=== PATIENT | male | born 1955 | race Caucasian/White ===

== ENCOUNTER 2022-01-11 18:28 | Emergency (ER) | payer MEDICARE, BC, SELFPAY ==
[2022-01-11] VITALS (7 sets, daily range): BP systolic 148–163; BP diastolic 86–102; PULSE 65–76; RESP 10–20; TEMP 37; O2SAT 92–96; BMI 30.3
--- NOTE | 2022-01-11 20:56 | ED.CHESTPAIN ---
HPI - Chest Pain General Chief Complaint: Chest Pain Stated Complaint: CHEST PRESSURE,STENT TODAY Time Seen by Provider: 01/11/22 18:43 History of Present Illness HPI narrative: 66-year-old man presenting with spouse to the emergency department with concern of pain across his upper chest. His like a bruise or like he has been punched in the chest. He was stented 1 stent after planned angiogram this morning at [facility]. Sees [facility]. Known coronary artery disease with a history of 2 other stents. Two weeks ago was seen in this emergency department and recommended for follow-up now which he did with Cardiology and according to these symptoms plan for angiogram. He is not having any radiating pain other than as mentioned above. This pain is familiar his concern though is that it lasted longer than his other stentings. He actually would describe it not so much as a pain. He is not having nausea no shortness of breath. Related Data Home Medications Medication Instructions Recorded Confirmed aspirin 81 mg tablet,delayed mg 01/11/22 release bupropion HCl 150 mg 24 hr tablet, mg PO 01/11/22 extended release bupropion HCl 300 mg 24 hr tablet, mg PO 01/11/22 extended release clopidogrel 75 mg tablet mg 01/11/22 escitalopram oxalate 20 mg tablet mg 01/11/22 lorazepam 0.5 mg tablet mg 01/11/22 nitroglycerin 0.4 mg sublingual mg 01/11/22 tablet tadalafil 20 mg tablet mg 01/11/22 tadalafil 5 mg tablet mg 01/11/22 Allergies Allergy/AdvReac Type Severity Reaction Status Date / Time augmentin AdvReac Intermediate Nausea Uncoded 01/11/22 18:40 Review of Systems Status of ROS Reports: 6 or more systems reviewed and unremarkable except as noted in History and below [facility] Social History Smoking Status: Never smoker Do you use any of these nicotine containing products: None Second hand tobacco smoke exposure: No How often do you have a drink containing alcohol: monthly or less How often do you have six or more drinks on one occasion: Never AUDIT-C Alcohol total score: 1 Non-prescribed substance use: denies use Exam Narrative Exam Narrative: pleasant. nad. tall stature. skin is warm and dry. abdomen soft and non-tender moving all extremities without difficulty. no edema. well-perfused. bandage in place at right forearm -- no inflammation or area swelling. breathing easily. lungs are clear. no reproducible pain in chest. no swelling around the neck EKG reviewed by me shows normal sinus rhythm at a rate of 65. No ischemic changes evident. Const Vital Signs, click to edit/add: Vital Signs - 24 hr 01/11/22 18:33 01/11/22 18:35 01/11/22 18:45 Temperature 98.6 F Pulse Rate [Right Pulse Oximeter] 67 65 66 Respiratory Rate 14 14 14 Blood Pressure [Right Upper Arm] 160/97 H 160/97 H 155/86 H Pulse Oximetry 92 96 94 01/11/22 19:00 01/11/22 19:15 01/11/22 19:30 Temperature Pulse Rate [Right Pulse Oximeter] 74 76 68 Respiratory Rate 20 20 10 L Blood Pressure [Right Upper Arm] 160/102 H 155/93 H 163/88 H Pulse Oximetry 95 94 95 01/11/22 19:45 Temperature Pulse Rate [Right Pulse Oximeter] 67 Respiratory Rate 14 Blood Pressure [Right Upper Arm] 148/92 H Pulse Oximetry 94 Documenting provider has reviewed patient's vital signs: yes Course Course Hospital Course: unchanged symptoms Consultations Consultation #1: Call to [facility] and spoke to on-call cardiology. was stented in the 2nd marginal obtuse No red flags. Not necessarily unusual. Does not sound to be indicative of thrombosis a stent would likely much more significant symptoms. Vital Signs Vital signs: Initial Vital Signs Pulse Rate 67 01/11/22 18:33 Respiratory Rate 14 01/11/22 18:33 Blood Pressure 160/97 H 01/11/22 18:33 Blood Pressure Mean 118 01/11/22 18:33 Blood Pressure Position Supine 01/11/22 18:33 Pulse Oximetry 92 01/11/22 18:33 Vital Signs Pulse Rate 67 01/11/22 18:33 Respiratory Rate 14 01/11/22 18:33 Blood Pressure 160/97 H 01/11/22 18:33 Pulse Oximetry 92 01/11/22 18:33 Temperature 98.6 F 01/11/22 18:35 Pulse Rate 67 01/11/22 19:45 Respiratory Rate 14 01/11/22 19:45 Blood Pressure 148/92 H 01/11/22 19:45 Pulse Oximetry 94 01/11/22 19:45 MDM - Chest Pain MDM Narrative Medical decision making narrative: see above Medical Records Data Attestation: I reviewed the patient's medical records. Discharge Plan Discharge Clinical Impression: Post-operative pain Patient Disposition: Home w/ Parent or Adult Condition: Stable Additional Instructions: Hydrate. Rest. Take medications as prescribed. Return for marked increase in pain, lightheadedness, shortness of breath, nausea. Prescriptions: No Action clopidogrel 75 mg tablet 0RF Label Comments: TAKE 1 TABLET BY MOUTH EVERY DAY aspirin 81 mg tablet,delayed release (DR/EC) 0RF lorazepam 0.5 mg tablet 0RF nitroglycerin 0.4 mg tablet, sublingual 0RF Label Comments: ONE TABLET UNDER TONGUE NEEDED FOR CHEST PAIN EVERY 5 MINUTES escitalopram oxalate 20 mg tablet 0RF bupropion HCl 300 mg tablet extended release 24 hr PO 0RF bupropion HCl 150 mg tablet extended release 24 hr PO 0RF tadalafil 5 mg tablet 0RF Label Comments: TAKE 1 TABLET BY MOUTH ONCE DAILY NEEDED FOR ERECTILE DYSFUNCTION TAKE IN ADDITION TO 20 MG TABLET FOR TOTAL OF 25 MG TAKE 30 MINUTES BEFORE SEXUAL ACTIVITY tadalafil 20 mg tablet 0RF Label Comments: TAKE 1 TABLET BY MOUTH ONCE DAILY NEEDED FOR ERECTILE DYSFUNCTION TAKE IN ADDITION TO 5 MG TABLET FOR TOTAL OF 25 MG TAKE 30 MINUTES BEFORE SEXUAL ACTIVITY. Stand Alone Forms: [employer] Info Instructions
== END 2022-01-11 19:55 | disposition home or self-care (01) ==
LOC: ED 19:36
PROVIDERS: Emergency Provider Family Medicine; PCP Physician Assistant Medical
DX: G89.18 Other acute postprocedural pain (principal); R07.89 Other chest pain
CPT/HCPCS: 93005; 99282; 99283; 99284

== ENCOUNTER 2023-06-24 07:30 | Outpatient (RCR) | payer MEDICARE, BC, SELFPAY | END 2023-10-22 23:59 | disposition home or self-care (01) | PROVIDERS: PCP Physician Assistant Medical; Visit Provider Family Medicine | DX: M77.12 Lateral epicondylitis, left elbow (principal); Z51.89 Encounter for other specified aftercare | CPT/HCPCS: 97033; 97035; 97140; 97165 ==

== ENCOUNTER 2023-08-06 09:39 | Day surgery (SDC) | payer MEDICARE, BC, SELFPAY ==
[2023-08-06] MEDS: KETOROLAC OPHTH 0.5% 1 DROP EYE-RIGHT ×3 (09:50→10:00)
[2023-08-06] MEDS: TETRACAINE 0.5% OPHTH 1 DROP EYE-RIGHT ×2 (09:50→09:55)
[2023-08-06 10:09] VITALS: BMI 32.5
[2023-08-06 10:11] VITALS: BP 138/86; PULSE 69; RESP 18; TEMP 36.6; O2SAT 94
[2023-08-06] MEDS: SODIUM CHLORIDE 0.9 % (FLUSH) 10 ML SYRINGE IVF (10:18)
--- NOTE | 2023-08-06 10:19 | SUR.PREOP ---
The eye drops brought by the patient (Ketorolac and Prednisolone) are examined and I have determined they are labeled by the patient's pharmacy for this patient as prescribed by the surgeon. The bottles are intact, recently obtained and appear to be correct. lawanda pitts RN
--- NOTE | 2023-08-06 10:38 | W.ANESCHARGE ---
Anesthesia Charges Start Date/Time Anesthesia Start Date: 08/06/23 Anesthesia Start Time: 10:40 Stop Date/Time Anesthesia Stop Date: 08/06/23 Anesthesia Stop Time: 11:14
[2023-08-06] MEDS: TETRACAINE 0.5% OPHTH 2 DROP EYE-RIGHT (10:43)
[2023-08-06] MEDS: BALANCED SALT IRRIG SOLN 15 ML EYE-RIGHT (10:48)
[2023-08-06 11:11] VITALS: BP 130/85; PULSE 66; RESP 18; TEMP 37.1; O2SAT 92
--- NOTE | 2023-08-06 11:16 | W.ANESCHARGE ---
Anesthesia Charges Start Date/Time Anesthesia Start Date: 08/06/23 Anesthesia Start Time: 10:40 Stop Date/Time Anesthesia Stop Date: 08/06/23 Anesthesia Stop Time: 11:14
--- NOTE | 2023-08-06 11:20 | P.OPTPRC_ITS ---
Procedure Note Date of procedure: 08/06/23 Will [facility] bill your pro fee for this procedure?: Yes Procedure Description: SURGEON: Criselda Harper MD PREOPERATIVE DIAGNOSIS: Nuclear sclerotic cataract, right eye. POSTOPERATIVE DIAGNOSIS: Nuclear sclerotic cataract, right eye. NAME OF OPERATION: Phacoemulsification of cataract with posterior chamber intraocular lens implantation in the right eye. ANESTHESIA: Topical. ESTIMATED BLOOD LOSS: Less than 2 cc. COMPLICATIONS: None. PATHOLOGY SPECIMEN: None. INDICATIONS: See consult note for details. The risks, benefits and alternatives of the procedure were explained to the patient, who elected to proceed and signed informed consent to do so. PROCEDURE: The patient was brought to the pre-holding area where the right eye was identified as the operative eye. I placed my initials above this eye. The patient received eye drops consisting of 0.5% tetracaine, 1% tropicamide, 10% phenylephrine, and 0.5% ketorolac. The patient was then brought to the operating room where the right eye was again identified as the operative eye. The eye was prepped with Betadine and draped in the usual sterile ophthalmic fashion. A #15 super-sharp blade was used to create a paracentesis site. 1% non-preserved intracameral lidocaine was injected into the anterior chamber. Endocoat was injected into the anterior chamber. A 2.4 mm keratome was used to create a three-plane self-sealing incision 1 mm anterior to the temporal limbus. A cystotome was used to create an anterior capsular leaflet. The Utrata forceps were used to extend this to form a continuous curvilinear capsulorrhexis. Hydrodissection was performed. The cataract was removed with phacoemulsification using the [id number] technique. The irrigation and aspiration tip was used to remove the remaining cortex. Healon was injected into the capsular bag. An ADRYAN ZCB00 intraocular lens of 13.5 diopters was injected into the capsular bag. The irrigation and aspiration tip was used to remove the remaining viscoelastic. Balanced salt solution on a cannula was used to hydrate the wound, and the wound was found to be watertight. The pupil was noted to be round. DISPOSITION: The patient was taken to the recovery room and discharged to home in stable condition. The patient was instructed to call me or go to the emergency department with any sudden change, including dramatic loss of vision, severe pain in the eye or eyebrow region, nausea, or vomiting. The patient will follow up in the clinic tomorrow morning.
== END 2023-08-06 12:22 | disposition home or self-care (01) ==
PROVIDERS: PCP Physician Assistant Medical; Visit Provider Ophthalmology
PROC: (CPT 66984; principal; 2023-08-06 09:45)
DX: H25.11 Age-related nuclear cataract, right eye (principal)
CPT/HCPCS: 66984; 00142; A9270; J2250; J3010; V2632

== ENCOUNTER 2023-08-20 07:32 | Day surgery (SDC) | payer MEDICARE, BC, SELFPAY ==
[2023-08-20] MEDS: KETOROLAC OPHTH 0.5% 1 DROP EYE-LEFT ×3 (07:38→07:48)
[2023-08-20] MEDS: TETRACAINE 0.5% OPHTH 1 DROP EYE-LEFT ×2 (07:38→07:43)
[2023-08-20 07:43] VITALS: BP 130/84; PULSE 65; RESP 16; TEMP 36.4; O2SAT 94
[2023-08-20] MEDS: SODIUM CHLORIDE 0.9 % (FLUSH) 10 ML SYRINGE IVF (07:45)
[2023-08-20 07:48] VITALS: BMI 32.8
[2023-08-20] MEDS: TETRACAINE 0.5% OPHTH 2 DROP EYE-LEFT (08:47)
[2023-08-20] MEDS: BALANCED SALT IRRIG SOLN 15 ML EYE-LEFT (08:53)
[2023-08-20 09:15] VITALS: BP 141/84; PULSE 59; RESP 16; TEMP 36.7; O2SAT 93
--- NOTE | 2023-08-20 09:17 | W.ANESCHARGE ---
Anesthesia Charges Start Date/Time Anesthesia Start Date: 08/20/23 Anesthesia Start Time: 08:45 Stop Date/Time Anesthesia Stop Date: 08/20/23 Anesthesia Stop Time: 09:18
--- NOTE | 2023-08-20 09:20 | W.PM.OPTPROC ---
Procedure Note Date of procedure: 08/20/23 Will [facility] bill your pro fee for this procedure?: Yes Procedure Description: SURGEON: Criselda Harper MD PREOPERATIVE DIAGNOSIS: Nuclear sclerotic cataract, left eye. POSTOPERATIVE DIAGNOSIS: Nuclear sclerotic cataract, left eye. NAME OF OPERATION: Phacoemulsification of cataract with posterior chamber intraocular lens implantation in the left eye. ANESTHESIA: Topical. ESTIMATED BLOOD LOSS: Less than 2 cc. COMPLICATIONS: None. PATHOLOGY SPECIMEN: None. INDICATIONS: See consult note for details. The risks, benefits and alternatives of the procedure were explained to the patient, who elected to proceed and signed informed consent to do so. PROCEDURE: The patient was brought to the pre-holding area where the left eye was identified as the operative eye. I placed my initials above this eye. The patient received eye drops consisting of 0.5% tetracaine, 1% tropicamide, 10% phenylephrine, and 0.5% ketorolac. The patient was then brought to the operating room where the left eye was again identified as the operative eye. The eye was prepped with Betadine and draped in the usual sterile ophthalmic fashion. A #15 super-sharp blade was used to create a paracentesis site. 1% non-preserved intracameral lidocaine was injected into the anterior chamber. Endocoat was injected into the anterior chamber. A 2.4 mm keratome was used to create a three-plane self-sealing incision 1 mm anterior to the temporal limbus. A cystotome was used to create an anterior capsular leaflet. The Utrata forceps were used to extend this to form a continuous curvilinear capsulorrhexis. Hydrodissection was performed. The cataract was removed with phacoemulsification using the [id number]-uwn-lhqmcsd technique. The irrigation and aspiration tip was used to remove the remaining cortex. Healon was injected into the capsular bag. An ADRYAN ZCB00 intraocular lens of 12.5 diopters was injected into the capsular bag. The irrigation and aspiration tip was used to remove the remaining viscoelastic. Balanced salt solution on a cannula was used to hydrate the wound, and the wound was found to be watertight. The pupil was noted to be round. DISPOSITION: The patient was taken to the recovery room and discharged to home in stable condition. The patient was instructed to call me or go to the emergency department with any sudden change, including dramatic loss of vision, severe pain in the eye or eyebrow region, nausea, or vomiting. The patient will follow up in the clinic tomorrow morning.
--- NOTE | 2023-08-20 09:47 | SUR.PREOP ---
The eye drops brought by the patient (Ketorolac and Prednisolone) are examined and I have determined they are labeled by the patient's pharmacy for this patient as prescribed by the surgeon. The bottles are intact, recently obtained and appear to be correct.
--- NOTE | 2023-08-20 10:06 | W.ANESCHARGE ---
Anesthesia Charges Start Date/Time Anesthesia Start Date: 08/20/23 Anesthesia Start Time: 08:45 Stop Date/Time Anesthesia Stop Date: 08/20/23 Anesthesia Stop Time: 09:18
== END 2023-08-20 09:44 | disposition home or self-care (01) ==
LOC: OR 07:32
PROVIDERS: PCP Physician Assistant Medical; Visit Provider Ophthalmology
PROC: (CPT 66984; principal; 2023-08-20 07:30)
DX: H25.12 Age-related nuclear cataract, left eye (principal)
CPT/HCPCS: 66984; 00142; A9270; J2250; J3010; V2632

== ENCOUNTER 2024-06-21 13:00 | Outpatient (RCR) | payer MEDICARE, BC, SELFPAY | END 2024-09-14 08:42 | disposition home or self-care (01) | PROVIDERS: PCP Physician Assistant Medical; Visit Provider Physician Assistant Medical | DX: M25.551 Pain in right hip (principal); M51.369 Other intervertebral disc degeneration, lumbar region without mention of lumbar back pain or lower extremity pain; M54.50 Low back pain, unspecified; M62.81 Muscle weakness (generalized); Z51.89 Encounter for other specified aftercare | CPT/HCPCS: 97110; 97140; 97161 ==

== ENCOUNTER 2024-12-20 17:41 | Emergency (ER) | payer MEDICARE, BC, SELFPAY ==
--- OUTSIDE RECORDS SUMMARY | 2024-12-20 17:43 | XMS_ITS | Clinical Summary ---
Author Organization [facility] Address [address] [place] [address] Care Team Providers Care Excellence Specialist Name Role Phone Elsewhere, Pcp Primary Care Provider Unavailabl e Source Comments Patient records contain information from all sites at [facility]. For routine questions regarding patient records, call [phone] during business hours, M-F 8:00 AM - 5:00 PM Central Time. Record requests for emergency care only can be directed to [phone] at any time.[facility] Allergies Active Allergy Reactions Criticality Noted Date Comments Amoxicillin-Pot Clavulanate GI intolerance 10/2016 Medications * This document contains information received from the source organization and may not represent a complete record from that organization. escitalopram (LEXAPRO) 20 mg tablet Take 1 tablet by mouth every morning. 3 Active buPROPion XL (WELLBUTRIN XL) 300 mg 24 hr tablet Take 300 mg by mouth every morning. Take along with 150 mg tablet for a total of 450 mg Active buPROPion XL (WELLBUTRIN XL) 150 mg 24 hr tablet Take 150 mg by mouth every morning. Take along with the 300 mg tablet for a total of 450mg Active atorvastatin (LIPITOR) 80 mg tablet Take 1 tablet by mouth every morning. 3 Active cholecalciferol (Vitamin D3) 50 mcg (2,000 Unit) tablet Take 4,000 Units by mouth daily. 4 Active sildenafiL (VIAGRA) 100 mg tablet Take 100 mg by mouth as needed for erectile dysfunction. Active nitroglycerin (NITROSTAT) 0.[address] 0.4 mg under the tongue every 2 (two) hours as needed for chest pain. 3 Active aspirin [address] tablet Take 1 tablet (81 mg total) by mouth every morning. On hold prior to surgery - last dose 11/03/23 4 Active Additional Information Patient taking differently:81 mg oral Every morning,(No instructions reported), Reported on 12/09/2023 LORazepam (ATIVAN) 0.5 mg tablet Take 1 tablet (0.5 mg total) by mouth as needed for anxiety. Do not take concurrently with opioids. 4 Active acetaminophen (TYLENOL) 500 mg tablet Take 2 tablets (1,000 mg total) by mouth 4 (four) times a day. 4 Active Additional Information Patient taking differently:1,000 mg oralAs needed, Reported on 03/15/2024 clopidogreL (Plavix) 75 mg tablet Take 1 tablet by mouth daily. 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 Alcohol Use Standard Drinks/Week Comments Not Currently 1 (1 standard drink = 0.6 oz pur e alcohol) 0-1 drink per week [facility] Utilities Answer Date Recorded In the past 12 months has e [employer], [employer], oil, or water [employer] threatened to shut off services in your home? No 09/10/2023 Exercise Vital Sign Answer Date Recorde d On average, how many days pe r week do you engage in moderate to strenuous exercise (like a brisk walk)? 2 days 09/10/2023 On average, how many minutes do you engage in exercise at this level? 30 min 09/10/2023 Hunger Vital Sign Answer Date Recorded Within the past 12 months, y ou worried that your food would run out before you got the money to buy more. Never true 09/10/19 24 Within the past 12 months, t he food you bought just didn't last and you didn't have money to get more. Never true 09/10/2023 PRAPARE - Transportation Answer Date Re corded In the past 12 months, has l ack of transportation kept you from medical appointments or from getting medications? No 12/2023 In the past 12 months, has l ack of transportation kept you from meetings, work, or from getting things needed for daily living? No 09/10/2023 Nutrition Answer Date Recorded On average, how many serving s of fruits and vegetables do you eat per day (serving size is equal to 1 cup or approximately the size of a tennis ball)? 0-2 09/10/2023 Dental Answer Date Recorded Dental: Regular Dentist Yes 09/10/19 Employment Answer Date Recorded Employment status Retired 09/10/2023 Housing Stability Answer Date Recorded What is your living situation today? I have a [facility] place to live 09/10/2023 Sex and Gender Information Value Date Recorded Sex Assigned at Male 09/10/2023 7:48 AM PRODUCT DEVELOPMENT TECHNICIAN Legal Sex Male 10:11 PM PRODUCT DEVELOPMENT TECHNICIAN Gender Identity Male 09/10/2023 7:48 AM PRODUCT DEVELOPMENT TECHNICIAN Sexual Orientation Straight 09/10/2023 7: 48 AM PRODUCT DEVELOPMENT TECHNICIAN Last Filed Vital Signs Vital Sign Reading Time Taken Comments Blood Pressure 137/78 02/09/2024 7:28 PM CDT Pulse 74 02/09/2024 7:28 PM CDT Temperature 36.7 C (98.1 F) 02/09/2024 7:28 PM CDT Respiratory Rate 18 02/09/2024 7:28 PM CDT Oxygen Saturation 97% 02/09/2024 7:28 PM CDT Inhaled Oxygen Concentration - - Weight 105 kg (231 lb 7.7 oz) 11/27/2023 7:14 PM CDT Height 186 cm (6' 1.23) 11/17/2023 9:22 AM CDT Body Mass Index 30.35 11/17/2023 9:22 AM CDT Plan of Treatment Health Maintenance Due Date Last Done Comments CT Colonography 1954 Cologuard 1954 FIT 1954 Hepatitis C Screening 1954 Pneumococcal vaccine (50+ years) (1 of 2 - PCV) 1973 Zoster Vaccines (1 of 2) 2004 DTaP,Tdap,and Td Vaccines (2 - Td or Tdap) 09/24/2020 09/24/2010 Depression Screening (Annual PHQ-2) 07/07/2024 Fall Risk Screen (Annual) 07/07/2024 COVID-19 Vaccine ( season) 2024 05/10/2024, 04/18/2023, 04/02/2022, Additional history exists Office Visit for Blood Pressure Check / Re-check 11/11/2024 11/12/2023 Fasting Glucose for Diabetes Screening 02/07/2027 02/08/2024, 11/27/2023, 11/12/2023, Additional history exists Colonoscopy 12/06/2027 12/05/2017 Colorectal Cancer Screening 12/06/2027 Lipid (Cholesterol) Screening 02/25/2028 02/24/2023, 01/11/2022, 05/30/2020, Additional history exists Influenza Vaccine Completed 05/10/2024, , 04/02/2022, Additional history exists IPV Vaccines Aged Out No longer eligi ble based on patient's age to complete this topic Goals Goal Patient Goal Type Associated Problems Recent Progress Patient-Stated? Author Autogenerat ed Goal Care Plan Autogenerated Problem No Hedy Lees, [employer] Implanted Type Area Professional Services Consultant Device Identifier Shelf Expiration Date Model / Serial / Lot Cardiac Stent Implanted:Qty : 3 Cardiac Stent Heart Lead Infinity 40x1.27x0.5 k - [id number] - [id number] Implanted:Qty : 1 on 11/17/2023 by Kwame Whittaker M.D., Ph.D. at [facility] [employer] Stim[employer] [place] [id number] 07/17/20246171 / [id number] / Lead Infinity 40x1.27x0.5 Blk - [id number] - [id number] Implanted:Qty : 1 on 11/17/2023 by Kwame Whittaker M.D., Ph.D. at [facility] [employer] [place] [id number] 07/22/2025 6172 / [id number] / Lead Infinity Ext 8ch 50 Blk - [id number] - [id number] Implanted:Qty : 1 on 11/17/2023 by Kwame Whittaker M.D., Ph.D. at [facility] [employer]ulator Left: Neck Hameed [id number] 08/19/2025 6371 / [id number] / Description:Marked Lead Infinity Ext 8ch 50 Blk - [id number] - [id number] Implanted:Qty : 1 on 11/17/2023 by Kwame Whittaker M.D., Ph.D. at [facility] [employer]ulator Right: Neck Hameed [id number] 08/19/2025 6371 / [id number] / Liberta Rc Dbs Battery Implanted:Qty : 1 on 11/17/2023 by Kwame Whittaker M.D., Ph.D. at [facility] [employer]ulator Left: Chest [place]ameed [id number] 08/29/2025 [id number] / [id number] / Plt Mtr Cmf Str 2h 12 - [id number] Implanted:Qty : 1 on 11/17/2023 by Kwame Whittaker M.D., Ph.D. at [facility] Hardware e.g. pins/screws/ rods Right: Cranial Depuy Synthes 04.503.0 62 / / Scrw Ti St Mtr [place] 1.55x2.65x5 - [id number] Implanted:Qty : 2 on 11/17/2023 by Kwame Whittaker M.D., Ph.D. at [facility] Hardware e.g. pins/screws/ rods Left: Cranial Depuy Synthes 04.503.1 15.01 / / Scrw Ti St Mtr [place] 1.55x2.65x5 - [id number] Implanted:Qty : 2 on 11/17/2023 by Kwame Whittaker M.D., Ph.D. at [facility] Hardware e.g. pins/screws/ rods Right: Cranial Depuy Synthes 503.1 15.01 / / Plt Mtr Cmf Str 2h 12 - [id number] Implanted:Qty : 1 on 11/17/2023 by Kwame Whittaker M.D., Ph.D. at [facility] Hardware e.g. pins/screws/ rods Left: Cranial Depuy Synthes 503.0 62 / / Ocular Lens-Bilatera l Ocular Lens Bilateral: Eye Shoulder Implant-Right Total Replacement Shoulder Implant Right: Shoulder Procedures Procedure Name Priority Date/Time Associated Diagnosis Comments BASIC METABOLIC PANEL, S/P STAT 11/27/2023 7:26 PM CDT from Last 3 Months or Most Recently Relevant to Health Maintenance Results * (ABNORMAL) Basic Metabolic Panel (11/27/2023 7:26 PM CDT) Potassium, P CANCELED mmol/L 11/27/2023 8:57 PM CDT DTL Comment: Specimen was hemolyzed. Redraw has been ordered and is in progress. Result canceled by the ancillary. Sodium, P 139 135 - 145 mmol/L 11/27/2023 8:56 PM CDT DTL Comment:Visible lipemia, umu trifuged prior to analysis Chloride, P 103 98 - 107 mmol/L 11/27/2023 8:56 PM CDT DTL Comment:Visible lipemia, umu trifuged prior to analysis Bicarbonate, P 25 22 - 29 mmol/L 11/27/2023 7:48 PM CDT STMA Anion Gap, P 11 7 - 15 11/27/2023 8:56 PM CDT DTL BUN (Blood Urea Nitrogen), P 16 8 - 24 mg/dL 11/27/2023 7:48 PM CDT STMA Creatinine 1.35 0.74 - 1.35 mg/dL 11/27/2023 7:48 PM CDT STMA Estimated GFR (eGFR) 57(L) >=60 mL/min/BSA 11/27/2023 7:48 PM CDT STMA Comment: Estimated GFR calculated using the 2020 CKD_EPI creatinine equation. Calcium, Total, P 9.5 8.8 - 10.2 mg/dL 11/27/2023 7:48 PM CDT STMA Glucose, P 88 70 - 140 mg/dL 11/27/2023 7:48 PM CDT STMA Blood (Blood, Venous) 11/27/2023 7:26 PM CDT 11/27/2023 7:31 PM CDT us Rufina Shah P.A.-C. LAB BLOOD ADD-ON Final Re sult [facility] [address] [place] [address], [facility] DTL [facility] [address] [place] [address] STMA [facility] [address] [place] [address] from Last 3 Months or Most Recently Relevant to Health Maintenance Additional Health Concerns Active Problems Noted Date Diagnosed Date Autogenerated Problem 11/16/2024 Insurance MEDICARE [facility] Advance Directives For more information, please contact: [phone] * Full Code (Latest Code Status on File) Date Activated Date Inactivated Comments 11/17/2023 5:44 PM 11/18/2023 12:40 PM Question Answer Comments Full Code: Not Discussed Due to: Patient not available * Full Code Date Activated Date Inactivated Comments 11/17/2023 10:43 AM 11/17/2023 5:44 PM Question Answer Comments Full Code: Not Discussed Due to: Patient not available Care Teams Excellence Specialist Relationship Specialty Start Date End Date Elsewhere, Pcp PCP - General Internal Medicine 09/09/23
[2024-12-20 18:01] VITALS: BP 134/86; PULSE 99; RESP 20; TEMP 36.6; O2SAT 99; BMI 28.0
--- OUTSIDE RECORDS SUMMARY | 2024-12-20 18:53 | XMS_ITS | Clinical Summary ---
Author Organization [employer] Address [facility] [place] [address] Care Team Providers Care Od Grinder Operator Name Role Phone Lexie Dale Primary Care Provider Junior Jenkins MD Unavailable [phone] Allergies Active Allergy Reactions Criticality Noted Date Comments Amoxicillin-Pot Clavulanate GI Upset,Stomach Upset 10/08/2016 Medications cholecalciferol, vitamin D3, 100 mcg (4,000 unit) cap Take by mouth once daily. 0 4 Active aspirin (ECOTRIN) 81 mg enteric coated tabletIndication s:Coronary artery disease involving [place] coronary artery of [place] heart TAKE 1 TABLET(81 MG) BY MOUTH EVERY DAY WITH A MEAL 90 Tablet 1 4 Active clopidogreL (Plavix) 75 mg tabletIndication s:Coronary artery disease involving [place] coronary artery of [place] heart, unspecified whether angina present,Arterios clerotic heart disease Take 1 Tablet (75 mg) by mouth once daily. 90 Tablet 3 4 Active atorvastatin (LIPITOR) 80 mg tabletIndication s:Arteriosclerot ic heart disease TAKE 1 TABLET(80 MG) BY MOUTH EVERY DAY 90 Tablet 3 4 Active sildenafil citrate (VIAGRA) 100 mg tabletIndication s:Erectile dysfunction, unspecified erectile dysfunction type Take 30min to 4 hours before sexual activity. Max 100mg/24hr.SOFIA E 1 TABLET BY MOUTH DAILY NEEDED FOR ERECTILE DYSFUNCTION. TAKE 30 MINUTES TO 4 HOURS BEFORE SEXUAL ACTIVITY. MAX OF 1 TABLET IN 24 HOURS 30 Tablet 5 4 Active buPROPion (WELLBUTRIN XL) 150 mg Extended-Release tabletIndication s:Depression, major, single episode, moderate (HC) TAKE 1 TABLET BY MOUTH EVERY MORNING. TAKE WITH THE 300 MG TABLET 90 Tablet 3 4 Active buPROPion (WELLBUTRIN XL) 300 mg Extended-Release tabletIndication s:Depression, major, single episode, moderate (HC) TAKE ONCE DAILY BY MOUTH WITH 150MG BUPROPION XL FOR TOTAL DOSE OF 450MG 90 Tablet 3 4 Active escitalopram oxalate (LEXAPRO) 20 mg tabletIndication s:Seasonal affective disorder,Situati onal mixed anxiety and depressive disorder TAKE 1 TABLET(20 MG) BY MOUTH EVERY MORNING 90 Tablet 3 4 Active nitroglycerin 0.4 mg sublingual tabletIndication s:Coronary artery disease involving [place] coronary artery of [place] heart, unspecified whether angina present ONE TABLET UNDER TONGUE NEEDED FOR CHEST PAIN EVERY 5 MINUTES 25 Tablet 5 Active LORazepam 0.5 mg tabIndications:S ituational mixed anxiety and depressive disorder Take 1 Tablet (0.5 mg) by mouth every 6 hours if needed for Anxiety. 30 Tablet 5 Active Active Problems Problem Noted Date Diagnosed Date Platelets decreased 02/13/2024 Seasonal affective disorder 07/08/2023 Depression, major, single episode, moderate 08/2023 Coronary artery disease invo lving [place] coronary artery of [place] heart with angina pectoris 07/08/2023 Chest pain 06/26/2023 VT (ventricular tachycardia) 07/10/2021 Hypertensive heart and chron ic kidney disease with heart failure and stage 1 through stage 4 chronic kidney disease, or unspecified chronic kidney disease 04/18/2021 Stage 3a chronic kidney disease 04/18/2021 Angina of effort 06/02/2020 Chest discomfort 09/18/2018 CKD stage III 09/18/2018 Stented coronary artery 02/16/2017 Coronary artery disease 02/04/2017 Overview (01/11/2022): PCI of the mid RCA 02/12/2017 PCI to OM2 01/11/2022 s/p right shoulder total elidia ulder arthroplasty on 03/20/[address] Raygoza 04/02/2016 Post-traumatic osteoarthriti s of right shoulder with history of assumed [place] procedure in the 1980s 12/05/2015 Instability of right shoulder joint 07/25/2015 Insomnia, unspecified 03/23/2013 Situational mixed anxiety and depressive disorde r 03/16/2012 ASHD 02/18/2011 Overview (06/02/2020): - February 2017: s/p MICHAEL mRCA - angiogram 06/02/2020: s/p MICHAEL mCX Hyperplastic colon polyp 02/16/2010 Overview (12/05/2017): Colonoscopy 02/2010 polyp repeat in 10 years Colonoscopy 12/2017 normal, repeat in 10 years Vitamin D deficiency 07/19/2009 Hypertension 07/19/2009 Other and unspecified hyperlipidemia 10/28/2007 Allergic rhinitis, cause unspecified 10/28/2007 Overview (10/28/2007): Some trouble over last 5 years. Abnormal cardiovascular stress test Overview (02/06/2011): 02/05/11 Echo stress test: resting EF normal with no wall motion abnormality, submaximal stress with chest pain throughout. Angio recommended Obstructive sleep apnea on CPAP Encounters Date Type Department Care Team Description 12/01/2024 Telephone [facility] [address] [place] [phone] Junior Jenkins MD Results (Stress test) 11/30/2024 10:13 AM CDT - 11/30/2024 11:59 PM CDT Hospital Encounter [facility] [address] [place] [address] Junior Jenkins MD Chest discomfort; FELDER (dyspnea on exertion) 11/30/2024 6:48 AM CDT - 11/30/2024 10:12 AM CDT Hospital Encounter [facility] [address], [address] [place] [address] Junior Jenkins MD Chest discomfort; FELDER (dyspnea on exertion) 11/30/2024 Travel 11/26/2024 Telephone [facility] [address] [place] [address] Audrey Renee Cardiovascular Diagnostic Testing (lvm to confirm 11/30/24 stress test appt ) 11/24/2024 Telephone [facility] [address] [place] [phone] Junior Jenkins MD symptoms 11/22/2024 Nurse Triage [facility] [address] [place] [address] Lexie Dale PA Shortness Of Breath; Chest Pain 10/15/2024 7:45 AM CDT Procedure Only [facility] [address] [place] [address] Jaiden Stearns MD Procedure (Right hip intra-articular USGI) 10/15/2024 Travel 10/11/2024 Travel 09/29/2024 Telephone [facility] [address] [place] [phone] Junior Jenkins MD Appointment (Appt reminder) 09/29/2024 Telephone [facility] [address] [place] [phone] Juniro Jenkins MD 09/23/2024 Refill [facility] [address] [place] [address] Lexie Dale PA Refill Request (Lorazepam) 09/23/2024 Refill [facility] [address] [place] [phone] Junior Jenkins MD Refill Request (Nitroglycerin) 09/22/2024 9:40 AM CDT Office Visit [facility] [address] [place] [address] Jaiden Stearns MD Musculoskeletal Problem (Follow up right hip pain, USGI on 08/13/24) 09/22/2024 Travel 09/20/2024 Travel from Last 3 Months Immunizations Immunization Administration Dates Next Due COVID-19 VACCINE SPIKEVAX (M ODERNA 50MCG/0.5ML) 12YO+ PFS 05/10/2024,04/18/2023 COVID-19 vaccine (Pfizer-Bio NTech 30mcg/0.3mL) 12YO+ BIVALENT PF, MDV 04/02/2022 COVID-19 vaccine (Pfizer-Bio NTech 30mcg/0.3mL) 12YO+ JANETTE-SUCROSE PF, MDV 10/29/2021 COVID-19 vaccine (Pfizer-Bio NTech 30mcg/0.3mL) PF, MDV 04/23/2021,09/07/2020,08/17/2020 Influenza Virus, Unspecified 04/05/2019, 04/20/2018,03/25/2017,2015 Influenza, High-dose Inactivated 04/11/2020 Influenza, IIV3 (Age >=3 years) 05/21/2014 Influenza, IIV4 04/20/2015 Influenza, Inactivated AIIV4 (Age 65+ Years) Preserv Free 04/18/2023,04/02/2022,06/27/2021 Influenza, Inactivated IIV3 (Age 65+ Years) Preserv Free 05/10/2024 Td (Age >=7 Years) 10/25/1999 Tdap 09/24/2010 Tuberculin (PPD) 02/15/2013 Family History Medical History Relation Name Comments Other Brother lung spot Diabetes Father Heart Disease Father at ag e 83 of CHF Heart Disease Mother CHF Other Sister lung spot Anesthesia Problem No Family History Relation Name Status Comments Brother Father Mother Sister Social History Tobacco Use Types Packs/Day Years Used Date Smoking Tobacco: Never Smokeless Tobacco: Never Tobacco Cessation:Counseling Given: Yes Alcohol Use Standard Drinks/Week Comments Not Currently 1 (1 standard drink = 0.6 oz pur e alcohol) PHQ-2 Answer Date Recorded PHQ-2 TOTAL SCORE 4 02/24/2023 Social Connections Answer Date Recorded Do you often feel lonely or isolated from those around you? 0 05/09/2024 Financial Resource Strain Answer Date R ecorded Difficulty of Paying Living Expenses 3 05/09/2024 Difficulty of Paying Living Expenses Not on file 05/09/2024 Food Insecurity Answer Date Recorded Do you worry your food will run out before you are able to buy more? 1 05/09/2024 Transportation Needs Answer Date Record ed Does lack of transportation keep you from medica l appointments? 1 05/09/2024 Does lack of transportation keep you from work, meetings or getting things that you need? 1 05/09/2024 Housing Stability Answer Date Recorded What is your housing situation today? 1 05/09/2024 Interpersonal Safety Answer Date Record ed Are you being hit, kicked, p ushed or yelled at (see row info)? No 02/08/2024 Interpersonal Safety Abuse 12 - 18 Not on file 02/08/2024 Interpersonal Safety Ambulatory Vulnerability No t on file 02/08/2024 Utilities Answer Date Recorded Do you have trouble paying f or utilities (for example, heat, electricity, water, phone)? 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 Not on file Not on file Obstetrics History Last Filed Vital Signs Vital Sign Reading Time Taken Comments Blood Pressure 145/84 10/15/2024 7:42 AM CDT Pulse 81 10/15/2024 7:42 AM CDT Temperature 36.7 C (98.1 F) 10/15/2024 7:42 AM CDT Respiratory Rate 18 02/08/2024 12:17 PM CDT Oxygen Saturation 96% 10/15/2024 7:42 AM CDT Inhaled Oxygen Concentration - - Weight 98 kg (216 lb) 07/22/2024 1:00 PM DIAL MAKER Height 185.4 cm (6' 1) 02/08/2024 12:17 PM CDT Body Mass Index 28.5 02/08/2024 12:17 PM CDT Plan of Treatment Upcoming Encounters Date Type Department Care Team (Late st Contact Info) Description 01/14/2025 2:00 PM CDT Office Visit [facility] [address] [place], [place] [phone] Junior Jenkins MD [address] [place] [address] Health Maintenance Due Date Last Done Comments Hepatitis C screening for age 18-79 1972 Pneumococcal series for age 50+ (1 of 2 - PCV) 1973 Zoster (shingles) series for age 50+ (1 of 2) 2004 RSV vaccine for adults or (1 - Risk 60-74 years 1-dose series) 2014 Medicare Wellness for age 65+ 2019 Tetanus booster 09/24/2020 09/24/2010, 10/25/1999 Depression screening for age 12+ 02/25/2024 02/24/2023, 02/04/2020, 02/23/2019, Additional history exists BMI (ht and wt on same day) for age 18+ 07/21/2024 07/21/2023, 06/11/2023, 12/06/2022, Additional history exists COVID-19 vaccine series ( season) 2024 05/10/2024, 04/18/2023, 04/02/2022, Additional history exists Colonoscopy through age 75 12/06/202712/05, 12/05/2017, 12/05/2017, Additional history exists Lipids for age 45-75 02/25/2028 02/24/2023, 02/24/2023, 01/11/2022, Additional history exists Tdap Completed 09/24/2010 Influenza Vaccine Completed 05/10/2024, , 04/02/2022, Additional history exists Hepatitis B series for 19+ Aged Out N o longer eligible based on patient's age to complete this topic Medical Devices Implanted Type Area Human Resources Benefits Coordinator Device Identifier Shelf Expiration Date Model / Serial / Lot Cmnt Bone 20g Simplex P Non Atb Mv - [id number] Implanted:Qty: 1 on 03/20/2016 by Kike Raygoza MD at [facility] Right: Shoulder [employer] [id number] 0# / / [id number] Ancr Sut 2.3mm Iconix 25 W/2 Strand #5 Force Fiber - [id number] Implanted:Qty: 2 on 03/20/2016 by Kike Raygoza MD at [facility] Right: Shoulder [employer] 3910-500- 525# / / [id number] Glenoid Szmed 40mm Aeq Perform - [id number] Implanted:Qty: 1 on 03/20/2016 by Kike Raygoza MD at [facility] Right: Shoulder [employer] [id number]# / [id number] / Stem Hum Sz3 Simpliciti Nucleus Tri Fin - [id number] Implanted:Qty: 1 on 03/20/2016 by Kike Raygoza MD at [facility] Right: Shoulder [employer] 10/16/2020 [id number]# / [id number] / Head Hum [id number] Simpliciti - [id number] Implanted:Qty: 1 on 03/20/2016 by Kike Raygoza MD at [facility] Right: Shoulder [employer] [id number]# / [id number] / Explanted Type Area Human Resources Benefits Coordinator Device Identifier Shelf Expiration Date Model / Serial / Lot Pin Shldr [id number] Aequalis Alignment - [id number] Explanted:Qty: 1 on 03/20/2016 at [facility] Right: Shoulder [employer] [id number]# / / Procedures Procedure Name Priority Date/Time Associated Diagnosis Comments NM CARDIAC MPI STRESS TEST Routine 11/30/2024 9:57 AM CDT Chest discomfort FELDER (dyspnea on exertion) BEDSIDE US STUDY ARCHIVE Routine 10/15/2024 8:19 AM CDT Primary osteoarthritis of right hip Right hip impingement syndrome Hip pain, right LIPID PANEL W REFLEX MEASURED LDL Routine 02/24/2023 1:20 PM CDT Coronary artery disease involving [place] coronary artery of [place] heart with angina pectoris COLONOSCOPY 12/05/2017 8:58 AM CDT from Last 3 Months or Most Recently Relevant to Health Maintenance Results * NM CARDIAC MPI STRESS TEST (11/30/2024 9:57 AM CDT) Anatomical Region Laterality Modality HEART Nuclear Medicine 11/30/2024 6:48 AM CDT Narrative 11/30/2024 1:08 PM CDT [address], [place] [address] Main: Myocardial Perfusion Report Rest/Stress 1 Day Single Isotope Gated SPECT imaging with Regadenoson(Lexiscan) stress NOEL MATA ID: [id number] Age: 69 : 1955 Nuclear Tech: ALZ Exam Date: 11/30/2024 06:48 Gender: M RN/Ex. Supervisor Fruit Grading: GISELE/FEDERICA Height: 72.8 in BSA: 2.22 m Monitoring Provider: HODAN MURO Weight: 216 lbs BMI: 28.6 kg/m Ordering Provider: JUNIOR JENKINS Location: Outpatient Indication: FELDER (dyspnea on exertion); Chest discomfort FINAL CONCLUSIONS Normal pharmacologic stress perfusion imaging study. No significant ischemia was suggested by this study. Normal left ventricular size and systolic function with a calculated LVEF of 53%. PATIENT HISTORY Known CAD Risk Factors: Hypertension, Hyperlipidemia Cardiac History: Coronary artery disease, Previous percutaneous revascularization Presenting Symptoms: Atypical chest pain, Dyspnea on exertion, Fatigue, Decreased exercise tolerance, Palpitations Cardiac Meds: Aspirin. Atorvastatin. Plavix. Meds past 24 hrs: Same as list above. STRESS TEST SUMMARY Pharmacologic Pharmacologic Indications: Unsteady gait Protocol: Regadenoson(Lexiscan) Dose: 0.4 mg IV Duration (m:s): 0:15 Treadmill Activity: Adjunct low level exercise was not performed Resting HR (bpm): 68 Resting BP(mmHg): 122 / 82 Position: Sitting Peak HR(bpm): 84 Peak BP(mmHg): 126 / 72 % MPHR: 56 Double Product: 17083 Recovery HR(bpm): 78 Recovery BP(mmHg): 126 / 72 BP Response: Normal HR Response: Normal Stress Termination: complete lexiscan protocol Stress Symptoms: Pharmacologic stress agent provoked a typical vasodilator response (including flushing, nausea, and cramping). Meds Given: NONE ECG Resting ECG: Normal resting ECG with sinus rhythm and normal conduction. Resting Arrhythmia: Occasional PVCs. Stress ECG: Stress ECG did not show any ST segment change. Stress ECG is negative for myocardial ischemia. Stress Arrhythmia: Frequent PVCs, Rare PVCs. IMAGE PROTOCOL Rest/Stress 1 Day Radiopharmaceutical Dose (mCi) Route Injection Time Injection Date Inj to Img Time (min) Administered By Rest: 99mTc Sestamibi 8.1 IV 0717 11/30/2024 53 KML Stress: 99mTc Sestamibi 26.1 IV 0911 11/30/2024 46 ALZ Post-Injection Exercise: No exercise followed the intravenous injection PERFUSION RESULTS Technical Quality: Raw Data Analysis: Supine imaging was performed. Post-Stress Perfusion Rest Perfusion Basal Anterior: X Basal Anterior: X Summed Stress Score: 0 Summed Rest Score: 0 Summed Difference Score: 0 0 - Normal 2 - Moderately Reduced Uptake 4 - Absent 1 - Mildly Reduced Uptake 3 - Severely Reduced Uptake X - Not Interpretable Perfusion: The rest and stress perfusion images are normal. FUNCTION Calculated via Gated SPECT Post Stress LV EF: 53 % EDV: 73 ml EDVI: 32 ml/m ESV: 34 ml ESVI: 15 ml/m LV Size and Function: Normal left ventricular size and systolic function with a calculated LVEF of 53%. LV Regional Function: Normal left ventricular wall motion. Amara Osborne MD [facility] Accredited Site (Electronically Signed) Final Date: 30 Nov 2024 13:07 ICD-10 Codes: R06.09; R07.89 CC Providers: Dr. Lexie Dale Procedure Note Amara Osborne MBBS - 11/30/[address], [place] [address] Main: Myocardial Perfusion Report Rest/Stress 1 Day Single Isotope Gated SPECT imaging withRegadenoson(Lexiscan) stress NOEL MATA ID: [id number] Age: 69 : 1955 Nuclear Tech: ALZ Exam Date: 11/30/2024 06:48 Gender: M RN/Ex. Supervisor Fruit Grading: GISELE/FEDERICA Height: 72.8 in BSA: 2.22 m Monitoring Provider:HODAN MURO Weight: 216 lbs BMI: 28.6 kg/m Ordering Provider: JUNIOR JENKINS Location: Outpatient Indication: FELDER (dyspnea on exertion); Chest discomfort FINAL CONCLUSIONS Normal pharmacologic stress perfusion imaging study. No significant ischemia was suggested by this study. Normal left ventricular size and systolic function with a calculated LVEFof 53%. PATIENT HISTORY Known CAD Risk Factors: Hypertension, Hyperlipidemia Cardiac History: Coronary artery disease, Previous percutaneousrevascularization Presenting Symptoms: Atypical chest pain, Dyspnea on exertion, Fatigue,Decreased exercise tolerance, Palpitations Cardiac Meds: Aspirin. Atorvastatin. Plavix. Meds past 24 hrs: Same as list above. STRESS TEST SUMMARY Pharmacologic Pharmacologic Indications: Unsteadygait Protocol: Regadenoson(Lexiscan) Dose: 0.4 mg IV Duration (m:s): 0:15 Treadmill Activity: Adjunct low level exercise was not performed Resting HR (bpm): 68 Resting BP(mmHg): 122 / 82 Position: Sitting Peak HR(bpm): 84 Peak BP(mmHg): 126 / 72 % MPHR: 56 Double Product:00786 Recovery HR(bpm): 78 Recovery BP(mmHg): 126 / 72 BP Response: Normal HR Response: Normal Stress Termination: complete lexiscan protocol Stress Symptoms: Pharmacologic stress agent provoked a typicalvasodilator response (including flushing, nausea, and cramping). Meds Given: NONE ECG Resting ECG: Normal resting ECG with sinus rhythm and normalconduction. Resting Arrhythmia: Occasional PVCs. Stress ECG: Stress ECG did not show any ST segment change. Stress ECG isnegative for myocardial ischemia. Stress Arrhythmia: Frequent PVCs, Rare PVCs. IMAGE PROTOCOL Rest/Stress 1 Day Radiopharmaceutical Dose (mCi) Route Injection Time Injection Date Inj toImg Time (min) Administered By Rest: 99mTc Sestamibi 8.1 IV 0717 11/30/2024 53 KML Stress: 99mTc Sestamibi 26.1 IV 0911 11/30/2024 46 ALZ Post-Injection Exercise: No exercise followed the intravenous injection PERFUSION RESULTS Technical Quality: Raw Data Analysis: Supine imaging was performed. Post-Stress Perfusion Rest Perfusion Basal Anterior: X Basal Anterior: X Summed Stress Score: 0 Summed Rest Score: 0 Summed Difference Score: 0 0 - Normal 2 - ModeratelyReduced Uptake 4 - Absent 1 - Mildly Reduced Uptake 3 - Severely Reduced UptakeX - Not Interpretable Perfusion: The rest and stress perfusion images are normal. FUNCTION Calculated via Gated SPECT Post Stress LV EF: 53 % EDV: 73 ml EDVI: 32 ml/m ESV: 34 ml ESVI: 15 ml/m LV Size and Function: Normal left ventricular size and systolic functionwith a calculated LVEF of 53%. LV Regional Function: Normal left ventricular wall motion. Amara Osborne MD [facility] Accredited Site (Electronically Signed) Final Date: 30 Nov 2024 13:07 ICD-10 Codes: R06.09; R07.89 CC Providers: Dr. Lexie Dale Junior Jenkins MD NM Final Result * BEDSIDE US STUDY ARCHIVE (10/15/2024 8:19 AM CDT) Narrative Zaynab Siddiqui - 10/15/2024 8:19 AM CDT The patient was seen for ultrasound guided injection by Dr. Jaiden Stearns. Ultrasound was not used for diagnostic purposes, but to guide the needle placement and document the position of the injection. See patient's EPIC encounter for the detail of the procedure; see DIMITRI for saved images of the injection. Jaiden Stearns MD PROCEDURE ORD Final Resu lt * (ABNORMAL) LIPID PANEL W REFLEX MEASURED LDL (02/24/2023 1:20 PM CDT) CHOLESTEROL,TOTAL 148 100 - 199 mg/dL 02/25/2023 1:09 AM CDT [facility] Comment: Cholesterol, Total Reference Ranges Desirable <200 mg/dL Borderline 200-239 mg/dL High >=240 mg/dL TRIGLYCERIDES 765(H) <150 mg/dL 02/25/2023 1:09 AM CDT [facility] HDL CHOLESTEROL 25(L) >40 mg/dL 3 1:09 AM CDT [facility] [employer] NON-HDL CHOLESTEROL 123 <145 mg/dl 02/25/2023 1:09 AM CDT [facility] CHOL/HDL RATIO 5.92(H) <4.50 02/25/2023 1:09 AM CDT [facility] LDL CHOLESTEROL 1:09 AM CDT [facility] Comment:Invalid LDL when Tri g >400. VLDL CHOLESTEROL COMMENT 02/25/2023 1:09 AM CDT [facility] Comment:Unable to calculate VLDL. PROVIDER ORDERED STATUS RANDOM 02/25/2023 1:09 AM CDT [facility] Blood BLOOD SPECIMEN / Unknown Venipuncture / Unknown 02/24/2023 1:20 PM CDT 02/24/2023 1:22 PM CDT us Lexie REZA CHEMISTRY Final R [facility]ult [facility] [address] [place] [address], [place] * COLONOSCOPY (12/05/2017 8:58 AM CDT) 12/05/2017 8:58 AM CDT Narrative Transcriptions Jensen Millan MD - 12/05/2017 10:30 AM CDT Patient Name: Noel Portersharon Procedure Date: 12/05/2017 Gender: Male Date of : 1955 Admit Type: Outpatient Procedure: Colonoscopy Proceduralist: Jensen Millan MD , Xi Watkins (Nurse) Referring MD: Lexie Dale Indications/Pre-Op Diagnosis: Last colonoscopy: February 2010, [place] Medications: Fentanyl 100 micrograms IV, Midazolam 2 mgIV, The level of sedation administered wasmoderate Procedure Description: The patient had risks, benefits and alternatives explained to andgave informed consent. The patient had a stable cardiopulmonary status and judged an adequate candidate for conscious sedation. The colonoscope was passed through the anus and advanced to theterminal ileum. The colonoscopy was performed without difficulty. The patient tolerated the procedure well. The quality of the bowel preparationwas excellent. The terminal ileum, ileocecal valve, appendiceal orifice,and rectum were photographed. Complications: No immediate complications. Estimated Blood Loss & Specimen: Estimated blood loss: none. Specimen collected - None Findings: The perianal and digital rectal examinations were normal. The terminal ileum appeared normal. The entire examined colon appeared normal on direct and retroflexion views. Impressions/Post-Op Diagnosis: - The examined portion of the ileum was normal. - The entire examined colon is normal on direct and retroflexionviews. - No specimens collected. Recommendation: - Patient has a contact number available for emergencies. The signsand symptoms of potential delayed complications were discussed with the patient. Return to normal activities tomorrow. Written discharge instructions were provided to the patient. - Resume previous diet. - Continue present medications. - Repeat colonoscopy in 10 years for screening purposes. - Perform an upper GI endoscopy at appointment to be scheduled. Moderate Sedation: Moderate (conscious) sedation was administered by the endoscopy nurse and supervised by the endoscopist. The following parameters were monitored: oxygen saturation, heart rate, respiratory rate, blood pressure, adequacy of pulmonary ventilation and reponse to care. Please refer to the [facility]' medical record flowsheets and nursing notes for moderate sedation details. Total physician intraservice time was 16 minutes. Jensen Millan MD 12/05/2017 10:30:48 AM This report has been signed electronically. Note Initiated On: 12/05/2017 8:58 AM Procedure Code(s): --- Professional --- 46339, Colonoscopy, flexible; diagnostic, including collection of specimen(s) bybrushing or washing, when performed (separateprocedure) Diagnosis Code(s): --- Professional --- K92.1, Melena (includes Hematochezia) CPT copyright 2017 [employer]. All rights reserved. The codes documented in this report are preliminary and upon executive vice president and chief financial officer reviewmay be revised to meet current compliance requirements. Scope In: 10:12:45 AM Scope Withdrawal Time 0 hours 9 minutes 26 seconds Scope Out: 10:26:57 AM Jensen Millan MD PROCEDURE ORD Final Res ult from Last 3 Months or Most Recently Relevant to Health Maintenance Insurance MEDICARE PART B HB ONLY BLUE [employer] [place] BLUE MR PB ONLY BLUE [place] [place] BLUE HB ONLY MEDICARE PART A HB ONLY BLUE [place] [place] BLUE MR PB ONLY BLUE [place] [place] BLUE HB ONLY MEDICARE PART A HB ONLY Advance Directives * Full Code (Latest Code Status on File) Date Activated Date Inactivated Comments 06/26/2023 11:19 AM 06/26/2023 4:12 PM Question Answer Comments Code Status Discussion: Reviewed Preferences * Full Code Date Activated Date Inactivated Comments 07/03/2022 8:27 AM 07/03/2022 1:33 PM Question Answer Comments Code Status Discussion: Reviewed Preferences * Full Code Date Activated Date Inactivated Comments 07/03/2022 5:56 AM 07/03/2022 8:27 AM Question Answer Comments Code Status Discussion: Reviewed Preferences * Full Code Date Activated Date Inactivated Comments 01/11/2022 9:08 AM 01/11/2022 3:14 PM Question Answer Comments Code Status Discussion: Reviewed Preferences * Full Code Date Activated Date Inactivated Comments 06/02/2020 8:27 AM 06/02/2020 9:04 PM Question Answer Comments Code Status Discussion: Discussed Care Teams Od 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
== END 2024-12-20 18:55 | disposition left against medical advice (07) ==
PROVIDERS: Emergency Provider Family Medicine; PCP Physician Assistant Medical
DX: Z53.21 Procedure and treatment not carried out due to patient leaving prior to being seen by health care provider (principal)

== ENCOUNTER 2025-01-30 17:39 | Emergency (ER) | payer MEDICARE, BC, SELFPAY ==
--- OUTSIDE RECORDS SUMMARY | 2024-12-24 15:00 | XMS_ITS | Encounter Summary ---
Author Organization [facility] Address [address] [place] [address] Care Team Providers Care Dean Of Chapel Name Role Phone Elsewhere, Pcp Primary Care Provider Unavailabl e Reason for Referral * Outpatient (Routine) - Closed Specialty Diagnoses / Procedures Referred By Contac t Referred To Contact Diagnoses Malignant Neoplasm Of Pancreas Adenocarcinoma (HCC) Mass Pancreas Procedures US Liver Biopsy Drea Means APRN, C.N.P., D.N.P. 200 [place] [address] Phone: tel: fax: [facility] Referral ID Status Reason Start Date Expiration Date Visits Re quested Visits Authorized [id number] Closed 12/27/2024 03/29/2026 1 1 * Outpatient (Routine) - Closed Specialty Diagnoses / Procedures Referred By Contac t Referred To Contact Clinical Genomics Diagnoses Mass Pancreas Aleena Moreira M.D. 200 [place] [address] Phone: tel: fax: [facility] Referral ID Status Reason Start Date Expiration Date Visits Re quested Visits Authorized [id number] Closed 12/24/2024 06/25/2026 1 1 * Outpatient (Routine) - Closed Specialty Diagnoses / Procedures Referred By Meeta carlisle Referred To Contact Medical Oncology / Oncology Diagnoses Mass Pancreas Aleena Moreira M.D. [address] [place] [phone] Phone: tel: fax: [facility] Referral ID Status Reason Start Date Expiration Date Visits Re quested Visits Authorized [id number] Closed 12/24/2024 06/25/2026 1 1 * MRI/CAT/PET Scan (Routine) - Closed Specialty Diagnoses / Procedures Referred By Meeta carlisle Referred To Contact Radiology Diagnoses Mass Pancreas Procedures CT Pancreas Angiogram Triple Phase and Pelvis with IV Contrast Aleena Moreira M.D. 200 [place] [address] Phone: tel: fax: [facility] Referral ID Status Reason Start Date Expiration Date Visits Re quested Visits Authorized [id number] Closed 12/24/2024 03/26/2026 1 1 Reason for Visit * Outpatient (Routine) - Authorized Specialty Diagnoses / Procedures Referred By Meeta carlisle Referred To Contact Diagnoses Malignant Neoplasm Of Pancreas Ad[facility] Referral ID Status Reason Start Date Expiration Date V isits Requested Visits Authorized [id number] Authorized 12/23/2024 06/24/2026 1 1 Encounter Details Date Type Department Care Team (Latest Contact Info) Description 12/24/2024 3:00 PM CDT Virtual Visit Division of Gastroenterology in [place], [place] [address] [place] [phone] Rodriguez Butts, M.S.N., R.N. Mass Pancreas (Primary Dx); Malignant Neoplasm Of Pancreas Adenocarcinoma (HCC) Social History Tobacco Use Types Packs/Day Years Used Date Smoking Tobacco: Never Passive Smoke Exposure: Past Smokeless Tobacco: Never Passive Exposure Comments:Ch ildhood exposure. Alcohol Use Standard Drinks/Week Comments Not Currently 1 (1 standard drink = 0.6 oz pur e alcohol) 0-1 drink per week [facility] Utilities Answer Date Recorded In the [...] your living situation today? I have a [facility] place to live 12/23/2024 Sex and Gender Information Value Date Recorded Sex Assigned at Male 09/10/2023 7:48 AM VEGETABLE TRIMMER Legal Sex Male 10:11 PM VEGETABLE TRIMMER Gender Identity Male 09/10/2023 7:48 AM VEGETABLE TRIMMER Sexual Orientation Straight 09/10/2023 7: 48 AM VEGETABLE TRIMMER documented as of this encounter H&P Notes * Rodriguez Butts M.S.N., R.N. - 12/24/2024 3:00 PM CDT Reason for Visit Gastroenterology and Hepatology: Pancreas Clinic RN Pre-Visit. Patient contacted [facility] requesting on-campus appointment; pre-visit was scheduled following that request. Completed administrative pre-visit discussion to better understand patient goals and the needed patient itinerary for the requested on-site visit. This pre-visit does not establish a long-term relationship. This interview occurred via phone call by Loi Bauer., R.N. at [facility] to the patient in the patient's home. The information below is based on review of available medical records and a virtual conversation with the patient. History of Present Illness Mr. Mata is a 69 y.o. male who is being interviewed for a pre-visit encounter. He is accompaniedby his spouse. Our records indicate that Mr. Mata was referred to [facility] for a pancreatic mass. Noel reports seeking [...] Noel has a biopsy scheduled locally at [facility] on 12/30/2024. He intends to keep this [...] consultation appointment. Local GI Provider: PCP - [facility] The following information also shared with the patient: Patient aware and agreeable to charges for re-reads of externally completed imaging. documented in this encounter Miscellaneous Notes * Addendum Note - Rodriguez Butts M.S.N., R.N. - 12/24/2024 3:00 PM CDTAddended by: RODRIGUEZ BUTTS on: 12/24/2024 03:19 PM Modules accepted: [...] Department Care Team (Latest Contact Info) Description 02/04/2025 7:00 AM CDT Lab Department of Infusion Therapy in [address] [phone] Skip Amaya M.D., Ph.D. [address] [place] [phone] 02/04/2025 8:20 AM CDT Office Visit Department of Oncology in [address] [phone] Jag Frye, AKSH, C.N.P., D.N.P. [address] [place] [phone] 02/04/2025 2:00 PM CDT Infusion Department of Oncology in [address] [phone] Skip Amaya M.D., Ph.D. [address] [place] [phone] 02/08/2025 2:15 PM CDT Clinical Communication Virtual Review in [place], [place] 200 [place] [address] 02/09/2025 9:30 AM CDT Telemedicine Department of Oncology in [address] [phone] Jesica Wasserman M.B., B.Ch. [address] [place] [address] Cecily Nash L.I.C.SJustynW. [address] [place] [address] 02/10/2025 12:00 PM CDT Lab Department of Infusion Therapy in [place], [place] [address] [place] [phone] Skip Amaya M.D., Ph.D. [address] [place] [phone] 02/10/2025 2:30 PM CDT Office Visit Department of Oncology in [place], [place] [address] [place] [phone] Rosenda Garza MPAS, P.A.-C. [address] [place] [phone] 02/11/2025 8:00 AM CDT Infusion Department of Oncology in [place], [place] [address] [place] [phone] Skip Amaya M.D., Ph.D. [address] [place] [phone] 02/23/2025 2:15 PM CDT Clinical Communication Virtual Review in [place], [place] 200 [place] [address] 02/25/2025 8:30 AM CDT Lab Department of Oncology in [place], [place] [address] [place] [phone] Skip Amaya M.D., Ph.D. [address] [place] [phone] 02/25/2025 10:40 AM CDT Office Visit Department of Oncology in [place], [place] [address] [place] [phone] Sandy Judge, KASH, C.N.P., M.S. [address] [place] [phone] 02/25/2025 11:30 AM CDT Infusion Department of Oncology in [place], [place] [address] [place] [phone] Skip Amaya M.D., Ph.D. [address] [place] [phone] 03/04/2025 6:00 AM CDT Lab Department of Infusion Therapy in [place], [place] [address] [place] [phone] Skip Amaya M.D., Ph.D. [address] [place] [phone] 03/04/2025 8:10 AM CDT Office Visit Department of Oncology in [address] [phone] Jie Shook P.A.-C. [address] [place] [phone] 03/04/2025 9:30 AM CDT Infusion Department of Oncology in [address] [phone] Skip Amaya M.D., Ph.D. [address] [place] [phone] 03/10/2025 2:15 PM CDT Clinical Communication Virtual Review in [place], [place] 200 [place] [address] 03/11/2025 6:00 AM CDT Lab Department of Laboratory Medicine and Pathology, [facility], in [place], [place] [address] [place] [phone] Skip Amaya M.D., Ph.D. [address] [place] [phone] 03/11/2025 7:20 AM CDT Office Visit Department of Oncology in [place], [place] [address] [place] [phone] Bipin Leal P.A.-C., M.S. [address] [place] [phone] 03/11/2025 8:00 AM CDT Infusion Department of Oncology in [place], [place] [address] [place] [phone] Skip Amaya M.D., Ph.D. [address] [place] [phone] 03/24/2025 11:20 AM CDT Lab Department of Infusion Therapy in [address] [phone] Skip Amaya M.D., Ph.D. [address] [place] [phone] 03/24/2025 1:30 PM CDT Office Visit Department of Oncology in [address] [phone] Skip Amaya M.D., Ph.D. [address] [place] [phone] 03/25/2025 7:00 AM CDT Infusion Department of Oncology in [address] [phone] Skip Amaya M.D., Ph.D. [address] [place] [phone] 03/29/2025 2:30 PM CDT Clinical Communication Virtual Review in [place], [place] 200 [place] [address] 04/01/2025 6:00 AM CDT Lab Department of Infusion Therapy in [place], [place] [address] [place] [phone] Skip Amaya M.D., Ph.D. [address] [place] [phone] 04/01/2025 8:20 AM CDT Office Visit Department of Oncology in [address] [phone] Precious Hill M.D., Ph.D. [address] [place] [phone] 04/01/2025 9:00 AM CDT Infusion Department of Oncology in [address] [phone] Skip Amaya M.D., Ph.D. [address] [place] [phone] 04/07/2025 11:00 AM CDT Lab Department of Infusion Therapy in [address] [address] Skip Amaya M.D., Ph.D. [address] [place] [phone] 04/07/2025 1:20 PM CDT Office Visit Department of Oncology in [address] [phone] Sandy Judge APRN, C.N.P., M.S. [address] [place] [phone] 04/08/2025 7:00 AM CDT Infusion Department of Oncology in [place], [place] [address] [place] [phone] Skip Amaya M.D., Ph.D. [address] [place] [phone] 04/21/2025 7:15 AM CDT Clinical Communication Virtual Review in [place], [place] 200 [place] [phone] 04/22/2025 7:20 AM CDT Lab Department of Infusion Therapy in [address] [phone] Skip Amaya M.D., Ph.D. [address] [place] [phone] 04/22/2025 9:20 AM CDT Office Visit Department of Oncology in [address] [phone] Sandy Judge, KASH, C.N.P., M.S. [address] [place] [phone] 04/22/2025 10:30 AM CDT Infusion Department of Oncology in [address] [phone] Skip Amaya M.D., Ph.D. [address] [place] [phone] Scheduled Referrals Name Type Priority Associated Diagnoses [...] ed Goal Care Plan Autogenerated Problem No Lempke, Hedy K, R.N. documented as of this encounter Results [...] POST-PROCEDURE DIAGNOSIS: Indeterminate hepatic mass. Procedure Note Akash Hudson M.D. - 12/30/2024 EXAM: US LIVER [...] mass core biopsy. NR us Drea Clary HEWITT, C.N.P., D.N.P. IMG US PROCEDURES Final Result [...] - 5.6 % 12/28/2024 11:51 AM CDT DT Comment: Hemoglobin A1c values of 5.7-6.4 percent indicate an increased risk for developing diabetes mellitus. In diabetic patients, HbA1c goals should be discussed with healthcare provider. Blood (Blood, Venous) 12/28/2024 10:35 AM CDT 12/28/2024 10:59 AM CDT us Aleena Moreira M.D. LAB BLOOD ADD-ON Final Result Performing Organization Address City/[facility]/ZIP Co de Phone Number [facility] [address] [place] [address] * Prothrombin Time (PT) (12/28/2024 10:35 AM CDT) Prothrombin Time, P 12.2 9.4 - 12.5 sec 12/28/2024 11:15 AM CDT DT INR 1.1 0.9 - 1.1 12/28/2024 11:15 AM CDT DT Comment: ----ADDITIONAL INFORMATION---- Standard intensity warfarin therapeutic range: 2.0 to 3.0 High intensity warfarin therapeutic range: 2.5 to 3.5 Blood (Blood, Venous) 12/28/2024 10:35 AM CDT 12/28/2024 10:59 AM CDT us Aleena Moreira M.D. LAB BLOOD ADD-ON Final Result [facility] [address] [place] [address], [facility] 200 [place] [address] * Prealbumin (PAB) (12/28/2024 10:35 AM CDT) Prealbumin (PAB), S 34 19 - 38 mg/dL 12/29/2024 8:10 AM CDT [facility] Blood (Blood, Venous) 12/28/2024 10:35 AM CDT 12/28/2024 6:17 PM CDT us Aleena Moreira M.D. LAB BLOOD ADD-ON Final Result [facility] [address] [place] [address] [facility] [address] [place] [address] * Cell-free DNA KRAS 12, 13, 61,146, Blood (12/28/2024 10:35 AM CDT) Result Summary POSITIVE 12/30/2024 11:34 AM CDT [...] in other neoplasms. REFERENCES 1. Gisselle Oncol. 2012;24(8):2062- 7 (PMID [id number]) 2. Gina Rev Clin Oncol. 2010Feb 26;8(11):661-8 (PMID [id number]) 3. Mod Pathol. 2007; Suppl 2:S16-22 (PMID [id number]) 4. J Clin Oncol. 2004Mar 07;23(25):9680-9 (PMID [id number]) 12/30/2024 11:34 AM CDT DTL Comment: ----ADDITIONAL [...] developed and its performance characteristics determined by [facility] in a manner consistent with CLIA requirements. This test has not been cleared or approved by the U.S. Food and Drug Administration. Blood (Blood, Venous) 12/28/2024 10:35 AM CDT 12/28/2024 11:34 AM CDT [facility] - 12/30/2024 11:34 AM CDT Specimen Information: Specimen ID: [id number] Specimen Type: Blood Specimen Collection Start Date: 12/28/2024 10:35 AM Specimen Received Date: 12/28/2024 11:34 AM Specimen ID: [id number] Specimen Type: Blood Specimen Collection Start Date: 12/28/2024 10:35 AM Specimen Received Date: 12/28/2024 11:34 AM us Aleena Moreira M.D. LAB GENETIC TESTING Final Result Performing Organization Address [facility] de Phone Number [facility] 200 [place] [address], [facility] DTL 200 [facility] 200 [place] [address] * (ABNORMAL) Carbohydrate Antigen 19-9 (CA 19-9) (12/28/2024 10:35 AM CDT) Pathologist [facility] Carbohydrate Ag 19-9, S 94725(H) <35 U/mL 12/28/2024 2:59 PM CDT [facility] Comment: ----ADDITIONAL INFORMATION---- The testing method is an immunoenzymatic assay manufactured by [employer]. and performed on the [employer] DxI 800. Values obtained with different assay methods or kits may be different and cannot be used interchangeably. Test results cannot be interpreted as absolute evidence for the presence or absence of malignant disease. Blood (Blood, Venous) 12/28/2024 10:35 AM CDT 12/28/2024 1:37 PM CDT us Aleena Moreira M.D. LAB BLOOD ADD-ON Final Result Performing Organization Address [facility] de Phone Number [facility] [address] [place] [address] [facility] [address] [place] [address] * Bilirubin, Direct (12/28/2024 10:35 AM CDT) Pathologist [facility] Bilirubin, Direct, S 0.2 0.0 - 0.3 mg/dL 12/28/2024 11:46 AM CDT DT Blood (Blood, Venous) 12/28/2024 10:35 AM CDT 12/28/2024 11:24 AM CDT us Aleena Moreira M.D. LAB BLOOD ADD-ON Final Result [facility] [address] [place] [address], [facility]Or[facility] Laboratories[facility] [address] [place] [address] * (ABNORMAL) Comprehensive Metabolic Panel (12/28/2024 10:35 AM CDT) [facility] Potassium, S 4.8 3.6 - 5.2 mmol/L [...] 10:35 AM CDT 12/28/2024 11:24 AM CDT us Aleena Moreira M.D. LAB BLOOD ADD-ON Final Result [facility] [address] [place] [address], [facility] 200 [place] [address] * (ABNORMAL) CBC with Differential, Blood (12/28/2024 10:35 AM CDT) Pathologist [facility] Hemoglobin 15.4 13.2 - 16.6 g/dL 12/28/2024 [...] Moreira M.D. LAB BLOOD ADD-ON Final Result [facility] [address] [place] [address], [place] DTL [facility] [address] [place] [address] DHPM [facility] [address] [place] [address] * Interpretation of Outside CT Chest (12/24/2024 [...] contrast. COMPARISON: Outside chest CT 02/18/2024, subsequent [facility] CT abdomen 12/28/2024. FINDINGS: No definitive change [...] contrast. COMPARISON: Outside chest CT 02/18/2024, subsequent [facility] CT abdomen12/28/2024. FINDINGS: No definitive change of [...] characterizedon subsequent CT abdomen. Aleena Moreira M.D. [facility] [place]EDURES Final Result documented in this encounter Visit Diagnoses Diagnosis Mass Pancreas- Primary Malignant Neoplasm Of Pancreas Adenocarcinoma (HCC) Mass Pancreas Mass Pancreas Mass Pancreas Malignant Neoplasm Of Pancreas Adenocarcinoma (HCC) Mass Pancreas documented in this encounter Additional Health Concerns Active Problems Noted Date Diagnosed Date Autogenerated Problem 11/16/2024 documented as of this encounter Care Teams Dean Of Chapel Relationship Specialty Start Date End Date Elsewhere, Pcp PCP - General Internal Medicine 09/09/23 documented as of this encounter
--- OUTSIDE RECORDS SUMMARY | 2024-12-24 16:15 | XMS_ITS | Encounter Summary ---
Author Organization [facility] Address [address] [place] [phone] Care Team Providers Care Python Java Developer Name Role Phone Elsewhere, Pcp Primary Care Provider Unavailabl e Encounter Details Date Type Department Care Team (Late st Contact Info) Description 12/24/2024 4:15 PM CDT Ancillary Procedure Department of Radiology in [place], [place] [address] [place] [address] Garland Porter M.D. [address] [place] [phone] Mass Pancreas Social History Tobacco Use Types Packs/Day Years Used Date Smoking Tobacco: Never Passive Smoke Exposure: Past Smokeless Tobacco: Never Passive Exposure Comments:Ch ildhood exposure. Alcohol Use Standard Drinks/Week Comments Not Currently 1 (1 standard drink = 0.6 oz pur e alcohol) 0-1 drink per week [facility] Utilities Answer Date Recorded In the past 12 months has e electric, gas, oil, or water tok tok tok threatened to shut off services in your [...] your living situation today? I have a [facility] place to live 12/23/2024 Sex and Gender Information Value Date Recorded Sex Assigned at Male 09/10/2023 7:48 AM COMMISSARY PRODUCTION SUPERVISOR Legal Sex Male 10:11 PM COMMISSARY PRODUCTION SUPERVISOR Gender Identity Male 09/10/2023 7:48 AM COMMISSARY PRODUCTION SUPERVISOR Sexual Orientation Straight 09/10/2023 7: 48 AM COMMISSARY PRODUCTION SUPERVISOR documented as of this encounter Plan of Treatment Upcoming Encounters Date Type Department Care Team (Latest Contact Info) Description 02/04/2025 7:00 AM CDT Lab Department of Infusion Therapy in [place], [place] [address] [place] [phone] Skip Amaya M.D., Ph.D. [address] [place] [phone] 02/04/2025 8:20 AM CDT Office Visit Department of Oncology in [place], [place] [address] [place] [phone] Jag Frye, KASH, C.N.P., D.N.P. [address] [place] [phone] 02/04/2025 2:00 PM CDT Infusion Department of Oncology in [place], [place] [address] [place] [phone] Skip Amaya M.D., Ph.D. [address] [place] [phone] 02/08/2025 2:15 PM CDT Clinical Communication Virtual Review in [place], [place] 200 [place] [address] 02/09/2025 9:30 AM CDT Telemedicine Department of Oncology in [address] [place] [address] Jesica Wasserman M.B., B.Ch. [address] [place] [phone] Cecily Nash L.I.C.S.W. [facility] [place] [address] 02/10/2025 12:00 PM CDT Lab Department of Infusion Therapy in [place], [place] [address] [place] [phone] Skip Amaya M.D., Ph.D. [address] [place] [phone] 02/10/2025 2:30 PM CDT Office Visit Department of Oncology in [place], [place] [address] [place] [phone] Rosenda Garza, MORENA, P.A.-C. [address] [place] [phone] 02/11/2025 8:00 AM CDT Infusion Department of Oncology in [place], [place] [address] [place] [phone] Skip Amaya M.D., Ph.D. [address] [place] [phone] 02/23/2025 2:15 PM CDT Clinical Communication Virtual Review in [place], [place] 200 [place] [address] 02/25/2025 8:30 AM CDT Lab Department of Oncology in [place], [place] [address] [place] [phone] Skip Amaya M.D., Ph.D. [address] [place] [phone] 02/25/2025 10:40 AM CDT Office Visit Department of Oncology in [place], [place] [address] [place] [phone] Sandy Judge, KASH C.N.Bhavin., M.S. [address] [place] [phone] 02/25/2025 11:30 AM CDT Infusion Department of Oncology in [place], [place] [address] [place] [phone] Skip Amaya M.D., Ph.D. [address] [place] [phone] 03/04/2025 6:00 AM CDT Lab Department of Infusion Therapy in [place], [place] [address] [place] [phone] Skip Amaya M.D., Ph.D. [address] [place] [phone] 03/04/2025 8:10 AM CDT Office Visit Department of Oncology in [address] [phone] Jie Shook P.A.-C. [address] [place] [phone] 03/04/2025 9:30 AM CDT Infusion Department of Oncology in [place], [place] [address] [place] [phone] Skip Amaya M.D., Ph.D. [address] [place] [phone] 03/10/2025 2:15 PM CDT Clinical Communication Virtual Review in [place], [place] 200 [place] [address] 03/11/2025 6:00 AM CDT Lab Department of Laboratory Medicine and Pathology, [facility], in [place], [place] [address] [place] [phone] Skip Amaya M.D., Ph.D. [address] [place] [phone] 03/11/2025 7:20 AM CDT Office Visit Department of Oncology in [place], [place] [address] [place] [phone] Bipin Leal P.A.-C., M.S. [address] [place] [phone] 03/11/2025 8:00 AM CDT Infusion Department of Oncology in [place], [place] [address] [place] [phone] Skip Amaya M.D., Ph.D. [address] [place] [phone] 03/24/2025 11:20 AM CDT Lab Department of Infusion Therapy in [address] [phone] Skip Amaya M.D., Ph.D. [address] [place] [phone] 03/24/2025 1:30 PM CDT Office Visit Department of Oncology in [place], [place] [address] [place] [phone] Skip Amaya M.D., Ph.D. [address] [place] [phone] 03/25/2025 7:00 AM CDT Infusion Department of Oncology in [address] [address] Skip Amaya M.D., Ph.D. [address] [place] [phone] 03/29/2025 2:30 PM CDT Clinical Communication Virtual Review in [place], [place] 200 [place] [address] 04/01/2025 6:00 AM CDT Lab Department of Infusion Therapy in [place], [place] [address] [place] [phone] Skip Amaya M.D., Ph.D. [address] [place] [phone] 04/01/2025 8:20 AM CDT Office Visit Department of Oncology in [address] [phone] Precious Hill M.D., Ph.D. [address] [place] [phone] 04/01/2025 9:00 AM CDT Infusion Department of Oncology in [address] [phone] Skip Amaya M.D., Ph.D. [address] [place] [phone] 04/07/2025 11:00 AM CDT Lab Department of Infusion Therapy in [address] [phone] Skip Amaya M.D., Ph.D. [address] [place] [phone] 04/07/2025 1:20 PM CDT Office Visit Department of Oncology in [place], [place] [address] [place] [phone] Sandy Judge, KASH, C.N.P., M.S. [address] [place] [phone] 04/08/2025 7:00 AM CDT Infusion Department of Oncology in [address] [phone] Skip Amaya M.D., Ph.D. [address] [place] [phone] 04/21/2025 7:15 AM CDT Clinical Communication Virtual Review in [place], [place] 200 [place] [address] 04/22/2025 7:20 AM CDT Lab Department of Infusion Therapy in [address] [address] Skip Amaya M.D., Ph.D. [address] [place] [phone] 04/22/2025 9:20 AM CDT Office Visit Department of Oncology in [address] [phone] Sandy Judge, KASH, C.N.P., M.S. [address] [place] [phone] 04/22/2025 10:30 AM CDT Infusion Department of Oncology in [address] [phone] Skip Amaya M.D., Ph.D. [address] [place] [phone] documented as of this encounter Goals Goal Patient Goal Type Associated Problems Recent Progress Patient-Stated? Author Autogenerat ed Goal Care Plan Autogenerated Problem Hedy Frankel R.N. documented as of this encounter Procedures [...] contrast. COMPARISON: Outside chest CT 02/18/2024, subsequent [facility] CT abdomen 12/28/2024. FINDINGS: No definitive change [...] contrast. COMPARISON: Outside chest CT 02/18/2024, subsequent [facility] CT abdomen12/28/2024. FINDINGS: No definitive change of [...] documented as of this encounter Care Teams Python Java Developer Relationship Specialty Start Date End Date Elsewhere, Pcp PCP - General Internal Medicine 09/09/23 documented as of this encounter
--- OUTSIDE RECORDS SUMMARY | 2024-12-28 10:04 | XMS_ITS | Encounter Summary ---
Author Organization [facility] Address [address] [place] [address] Care Team Providers Care Solar Designer/Installer Name Role Phone Elsewhere, Pcp Primary Care Provider Unavailabl e Encounter Details Date Type Department Care Team (Latest Contact Info) Description 12/28/2024 10:04 AM CDT - 12/28/2024 11:04 AM CDT Hospital Encounter Department of Laboratory Medicine and Pathology, [facility] in [place], [place] [address] [place] [address] Garland Porter M.D. [address] [place] [address] Mass Pancreas Discharge Disposition: Home or Self Care Social History Tobacco Use Types Packs/Day Years Used Date Smoking Tobacco: Never Passive Smoke Exposure: Past Smokeless Tobacco: Never Passive Exposure Comments:Ch ildhood exposure. Alcohol Use Standard Drinks/Week Comments Not Currently 1 (1 standard drink = 0.6 oz pur e alcohol) 0-1 drink per week [facility] Utilities Answer Date Recorded In the past 12 months has [email or web address] electric, gas, oil, or water company threatened [...] your living situation today? [facility] 12/23/2024 Sex and Gender Information Value Date Recorded Sex Assigned at Male 09/10/2023 7:48 AM EDGE SETTER Legal Sex Male 10:11 PM EDGE SETTER Gender Identity Male 09/10/2023 7:48 AM EDGE SETTER Sexual Orientation Straight 09/10/2023 7: 48 AM EDGE SETTER documented as of this encounter Medications at [...] CDT Lab Department of Infusion Therapy in [place], [place] [address] [place] [phone] Skip Amaya M.D., Ph.D. [address] [place] [phone] 02/04/2025 8:20 AM CDT Office Visit Department of Oncology in [place], [place] [address] [place] [phone] Jag Frye, KASH, C.N.P., D.N.P. [address] [place] [phone] 02/04/2025 2:00 PM CDT Infusion Department of Oncology in [address] [address] Skip Amaya M.D., Ph.D. [address] [place] [phone] 02/08/2025 2:15 PM CDT Clinical Communication Virtual Review in [place], [place] 200 [place] [address] 02/09/2025 9:30 AM CDT Telemedicine Department of Oncology in [address] [phone] Jesica Wasserman M.B., B.Ch. [address] [place] [phone] Cecily Nash L.I.C.SSusu. [address] [place] [phone] 02/10/2025 12:00 PM CDT Lab Department of Infusion Therapy in [address] [address] Skip Amaya M.D., Ph.D. [address] [place] [phone] 02/10/2025 2:30 PM CDT Office Visit Department of Oncology in [address] [address] Rosenda Garza MPAS, P.A.-C. [address] [place] [phone] 02/11/2025 8:00 AM CDT Infusion Department of Oncology in [address] [address] Skip Amaya M.D., Ph.D. [address] [place] [phone] 02/23/2025 2:15 PM CDT Clinical Communication Virtual Review in [place], [place] 200 [place] [address] 02/25/2025 8:30 AM CDT Lab Department of Oncology in [address] [address] Skip Amaya M.D., Ph.D. [address] [place] [phone] 02/25/2025 10:40 AM CDT Office Visit Department of Oncology in [address] [phone] Sandy Judge APRN, C.N.P., M.S. [address] [place] [phone] 02/25/2025 11:30 AM CDT Infusion Department of Oncology in [place], [place] [address] [place] [phone] Skip Amaya M.D., Ph.D. [address] [place] [phone] 03/04/2025 6:00 AM CDT Lab Department of Infusion Therapy in [place], [place] [address] [place] [phone] Skip Amaya M.D., Ph.D. [address] [place] [phone] 03/04/2025 8:10 AM CDT Office Visit Department of Oncology in [address] [phone] Jie Shook P.A.-C. [address] [place] [phone] 03/04/2025 9:30 AM CDT Infusion Department of Oncology in [place], [place] [address] [place] [phone] Skip Amaya M.D., Ph.D. [address] [place] [phone] 03/10/2025 2:15 PM CDT Clinical Communication Virtual Review in [place], [place] 200 [place] [address] 03/11/2025 6:00 AM CDT Lab Department of Laboratory Medicine and Pathology, [facility], in [place], [place] [address] [place] [phone] Skip Amaya M.D., Ph.D. [address] [place] [phone] 03/11/2025 7:20 AM CDT Office Visit Department of Oncology in [place], [place] [address] [place] [phone] Bipin Leal P.A.-C., M.S. [address] [place] [phone] 03/11/2025 8:00 AM CDT Infusion Department of Oncology in [place], [place] [address] [place] [phone] Skip Amaya M.D., Ph.D. [address] [place] [phone] 03/24/2025 11:20 AM CDT Lab Department of Infusion Therapy in [place], [place] [address] [place] [phone] Skip Amaya M.D., Ph.D. [address] [place] [phone] 03/24/2025 1:30 PM CDT Office Visit Department of Oncology in [address] [address] Skip Amaya M.D., Ph.D. [address] [place] [phone] 03/25/2025 7:00 AM CDT Infusion Department of Oncology in [address] [address] Skip Amaya M.D., Ph.D. [address] [place] [phone] 03/29/2025 2:30 PM CDT Clinical Communication Virtual Review in [place], [place] 200 [place] [address] 04/01/2025 6:00 AM CDT Lab Department of Infusion Therapy in [place], [place] [address] [place] [phone] Skip Amaya M.D., Ph.D. [address] [place] [phone] 04/01/2025 8:20 AM CDT Office Visit Department of Oncology in [address] [phone] Precious Hill M.D., Ph.D. [address] [place] [phone] 04/01/2025 9:00 AM CDT Infusion Department of Oncology in [address] [address] Skip Amaya M.D., Ph.D. [address] [place] [phone] 04/07/2025 11:00 AM CDT Lab Department of Infusion Therapy in [address] [address] Skip Amaya M.D., Ph.D. [address] [place] [phone] 04/07/2025 1:20 PM CDT Office Visit Department of Oncology in [address] [phone] Sandy Judge APRN, C.N.P., M.S. [address] [place] [phone] 04/08/2025 7:00 AM CDT Infusion Department of Oncology in [address] [phone] Skip Amaya M.D., Ph.D. [address] [place] [phone] 04/21/2025 7:15 AM CDT Clinical Communication Virtual Review in [place], [place] 200 [place] [address] 04/22/2025 7:20 AM CDT Lab Department of Infusion Therapy in [place], [place] [address] [place] [phone] Skip Amaya M.D., Ph.D. [address] [place] [phone] 04/22/2025 9:20 AM CDT Office Visit Department of Oncology in [place], [place] [address] [place] [phone] Sandy Judge APRN, C.N.P., M.S. [address] [place] [phone] 04/22/2025 10:30 AM CDT Infusion Department of Oncology in [place], [place] [address] [place] [phone] Skip Amaya M.D., Ph.D. [address] [place] [phone] documented as of this encounter Goals Goal Patient Goal Type Associated Problems Recent Progress Patient-Stated? Author Autogenerat ed Goal Care Plan Autogenerated Problem No Hedy Lees, RJustynN. documented as of this encounter Procedures Procedure [...] Porter M.D. LAB BLOOD ADD-ON Final Result [facility] [address] [place] [address], [place] DTL [facility] [address] [place] [address] * Prothrombin Time (PT) (12/28/2024 10:35 AM [...] BLOOD ADD-ON Final Result Performing Organization Address City/[facility]/ZIP Co de Phone Number [facility] [address] [place] [address], [facility] [address] [place] [address] * Prealbumin (PAB) (12/28/2024 10:35 AM CDT) Prealbumin (PAB), S 34 19 - 38 mg/dL 12/29/2024 8:10 AM CDT [facility] Blood (Blood, Venous) 12/28/2024 10:35 AM CDT 12/28/2024 6:17 PM CDT us Garland Porter M.D. LAB BLOOD ADD-ON Final Result [facility] [address] [place] [address] [facility] [address] [place] [address] * Cell-free DNA KRAS 12, 13, 61,146, [...] REFERENCES 1. Gisselle Oncol. 2012;24(8):2062- 7 (PMID [id number]) 2. Gina Rev Clin Oncol. 2010Feb 26;8(11):661-8 (PMID [id number]) 3. Mod Pathol. 2007; Suppl 2:S16-22 (PMID [id number]) 4. J Clin Oncol. 2004Mar 07;23(25):5900-9 (PMID [id number]) 12/30/2024 11:34 AM CDT DTL Comment: ----ADDITIONAL [...] developed and its performance characteristics determined by [facility] in a manner consistent with CLIA requirements. This test has not been cleared or approved by the U.S. Food and Drug Administration. Blood (Blood, Venous) 12/28/2024 10:35 AM CDT 12/28/2024 11:34 AM CDT Narrative [facility] - 12/30/2024 11:34 AM CDT Specimen Information: Specimen ID: [id number] Specimen Type: Blood Specimen Collection Start Date: 12/28/2024 10:35 AM Specimen Received Date: 12/28/2024 11:34 AM Specimen ID: [id number] Specimen Type: Blood Specimen Collection Start Date: 12/28/2024 10:35 AM Specimen Received Date: 12/28/2024 11:34 AM us Garland Porter M.D. LAB GENETIC TESTING Final Result [facility] [address] [place], [place] [phone] [place] [address] [place] [address] * (ABNORMAL) Carbohydrate Antigen 19-9 (CA 19-9) (12/28/2024 10:35 AM CDT) Carbohydrate Ag 19-9, S 50081(H) <35 U/mL 12/28/2024 2:59 PM CDT [facility] Comment: ----ADDITIONAL INFORMATION---- The testing method is an immunoenzymatic assay manufactured by [employer] and performed on the [employer] DxI 800. Values obtained with different assay methods or kits may be different and cannot be used interchangeably. Test results cannot be interpreted as absolute evidence for the presence or absence of malignant disease. Blood (Blood, Venous) 12/28/2024 10:35 AM CDT 12/28/2024 1:37 PM CDT us Garland Porter M.D. LAB BLOOD ADD-ON Final Result Performing Organization Address City/[facility]/ZIP Co de Phone Number [facility] [address] [place] [address] [facility] [address] [place] [address] * Bilirubin, Direct (12/28/2024 10:35 AM CDT) Pathologist [facility] Bilirubin, Direct, S 0.2 0.0 - 0.3 mg/dL 12/28/2024 11:46 AM CDT DTL Blood (Blood, Venous) 12/28/2024 10:35 AM CDT 12/28/2024 11:24 AM CDT us Garland Porter M.D. LAB BLOOD ADD-ON Final Result Performing Organization Address [facility] de Phone Number [facility] [address] [place] [address], [facility] [address] [place] [address] * (ABNORMAL) Comprehensive Metabolic Panel (12/28/2024 10:35 AM CDT) Pathologist [facility] Potassium, S 4.8 3.6 - 5.2 mmol/L [...] Porter M.D. LAB BLOOD ADD-ON Final Result [facility] [address] [place] [address], [facility] DTL [facility] [address] [place] [address] * (ABNORMAL) CBC with Differential, Blood (12/28/2024 [...] Porter M.D. LAB BLOOD ADD-ON Final Result [facility] [address] [place] [address], [facility] DTL [facility] [address] [place] [address] [facility] [address] [place] [address] documented in this encounter Visit Diagnoses Diagnosis Mass Pancreas documented in this encounter Additional Health Concerns Active Problems Noted Date Diagnosed Date Autogenerated Problem 11/16/2024 documented as of this encounter Care Teams Solar Designer/Installer Relationship Specialty Start Date End Date Elsewhere, Pcp PCP - General Internal Medicine 09/09/23 documented as of this encounter
--- OUTSIDE RECORDS SUMMARY | 2024-12-28 11:05 | XMS_ITS | Encounter Summary ---
Author Organization [facility] Address [address] [place] [address] Care Team Providers Care Putty And Caulking Supervisor Name Role Phone Elsewhere, Pcp Primary Care Provider Unavailabl e Reason for Referral * MRI/CAT/PET Scan (Routine) - Closed Specialty Diagnoses / Procedures Referred By Meeta t Referred To Contact Radiology Diagnoses Mass Pancreas Procedures CT Pancreas Angiogram Triple Phase and Pelvis with IV Contrast Garland Porter M.D. [address] [place] [address] Phone: tel: fax: [facility] Referral ID Status Reason Start Date Expiration Date Visits Re quested Visits Authorized [id number] Closed 12/24/2024 03/26/2026 1 1 Reason for Visit * MRI/CAT/PET Scan (Routine) - Closed Specialty Diagnoses / Procedures Referred By Meeta carlisle Referred To Contact Radiology Diagnoses Mass Pancreas Procedures CT Pancreas Angiogram Triple Phase and Pelvis with IV Contrast Garland Porter M.D. [address] [place] [address] Phone: tel: fax: [facility] Referral ID Status Reason Start Date Expiration Date Visits Re quested Visits Authorized [id number] Closed 12/24/2024 03/26/2026 1 1 Encounter Details Date Type Department Care Team (Latest Contact Info) Description 12/28/2024 11:05 AM CDT - 12/28/2024 11:59 PM CDT Hospital Encounter Department of Radiology, [facility], in [place], [place] 200 [place] [address] Garland Porter M.D. [address] [place] [address] Mass Pancreas Discharge Disposition: Home or Self Care Social History Tobacco Use Types Packs/Day Years Used Date Smoking Tobacco: Never Passive Smoke Exposure: Past Smokeless Tobacco: Never Passive Exposure Comments:Ch ildhood exposure. Alcohol Use Standard Drinks/Week Comments Not Currently 1 (1 standard drink = 0.6 oz pur e alcohol) 0-1 drink per week [facility] Utilities Answer Date Recorded In the past 12 months has e electric, gas, oil, or water company [...] your living situation today? I have a [facility] place to live 12/23/2024 Sex and Gender Information Value Date Recorded Sex Assigned at Male 09/10/2023 7:48 AM CALENDER LET OFF OPERATOR Legal Sex Male 10:11 PM CALENDER LET OFF OPERATOR Gender Identity Male 09/10/2023 7:48 AM CALENDER LET OFF OPERATOR Sexual Orientation Straight 09/10/2023 7: 48 AM CALENDER LET OFF OPERATOR documented as of this encounter Medications at [...] CDT Lab Department of Infusion Therapy in [place], [place] 200 [place] [address] Skip Amaya M.D., Ph.D. 200 [place] [address] 02/04/2025 8:20 AM CDT Office Visit Department of Oncology in [place], [place] [address] [place] [phone] Jag Frye, MACHINE LACER, C.N.P., D.N.P. [address] [place] [phone] 02/04/2025 2:00 PM CDT Infusion Department of Oncology in [place], [place] [address] [place] [phone] Skip Amaya M.D., Ph.D. [address] [place] [phone] 02/08/2025 2:15 PM CDT Clinical Communication Virtual Review in [place], [place] 200 [place] [phone] 02/09/2025 9:30 AM CDT Telemedicine Department of Oncology in [address] [address] Jesica Wasserman M.B., B.Ch. [address] [place] [phone] Cecily Nash, WeroI.C.S.W. [address] [place] [phone] 02/10/2025 12:00 PM CDT Lab Department of Infusion Therapy in [address] [phone] Skip Amaya M.D., Ph.D. [address] [place] [phone] 02/10/2025 2:30 PM CDT Office Visit Department of Oncology in [address] [phone] Rosenda Garza MPAS, P.A.-C. [address] [place] [phone] 02/11/2025 8:00 AM CDT Infusion Department of Oncology in [place], [place] [address] [place] [phone] Skip Amaya M.D., Ph.D. [address] [place] [phone] 02/23/2025 2:15 PM CDT Clinical Communication Virtual Review in [place], [place] 200 [place] [address] 02/25/2025 8:30 AM CDT Lab Department of Oncology in [place], [place] [address] [place] [phone] Skip Amaya M.D., Ph.D. [address] [place] [phone] 02/25/2025 10:40 AM CDT Office Visit Department of Oncology in [place], [place] [address] [place] [phone] Sandy Judge, KASH, C.N.P., M.S. [address] [place] [phone] 02/25/2025 11:30 AM CDT Infusion Department of Oncology in [place], [place] [address] [place] [phone] Skip Amaya M.D., Ph.D. [address] [place] [phone] 03/04/2025 6:00 AM CDT Lab Department of Infusion Therapy in [address] [address] Skip Amaya M.D., Ph.D. [address] [place] [phone] 03/04/2025 8:10 AM CDT Office Visit Department of Oncology in [place], [place] [address] [place] [phone] Jie Shook P.A.-C. [address] [place] [phone] 03/04/2025 9:30 AM CDT Infusion Department of Oncology in [place], [place] [address] [place] [phone] Skip Amaya M.D., Ph.D. [address] [place] [phone] 03/10/2025 2:15 PM CDT Clinical Communication Virtual Review in [place], [place] 200 [place] [address] 03/11/2025 6:00 AM CDT Lab Department of Laboratory Medicine and Pathology, [facility] in [address] [address] Skip Amaya M.D., Ph.D. [address] [place] [phone] 03/11/2025 7:20 AM CDT Office Visit Department of Oncology in [address] [phone] Bipin Leal, John.-Jordy., M.S. [address] [place] [phone] 03/11/2025 8:00 AM CDT Infusion Department of Oncology in [address] [address] Skip Amaya M.D., Ph.D. [address] [place] [phone] 03/24/2025 11:20 AM CDT Lab Department of Infusion Therapy in [place], [place] [address] [place] [phone] Skip Amaya M.D., Ph.D. [address] [place] [phone] 03/24/2025 1:30 PM CDT Office Visit Department of Oncology in [place], [place] [address] [place] [phone] Skip Amaya M.D., Ph.D. [address] [place] [phone] 03/25/2025 7:00 AM CDT Infusion Department of Oncology in [address] [address] Skip Amaya M.D., Ph.D. [address] [place] [phone] 03/29/2025 2:30 PM CDT Clinical Communication Virtual Review in [address] [phone] 04/01/2025 6:00 AM CDT Lab Department of Infusion Therapy in [address] [address] Skip Amaya M.D., Ph.D. [address] [place] [phone] 04/01/2025 8:20 AM CDT Office Visit Department of Oncology in [address] [address] Precious Hill M.D., Ph.D. [address] [place] [phone] 04/01/2025 9:00 AM CDT Infusion Department of Oncology in [place], [place] [address] [place] [phone] Skip Amaya M.D., Ph.D. [address] [place] [phone] 04/07/2025 11:00 AM CDT Lab Department of Infusion Therapy in [place], [place] [address] [place] [phone] Skip Amaya M.D., Ph.D. [address] [place] [phone] 04/07/2025 1:20 PM CDT Office Visit Department of Oncology in [address] [phone] Sandy Judge APRN, C.N.P., M.S. [address] [place] [phone] 04/08/2025 7:00 AM CDT Infusion Department of Oncology in [address] [address] Skip Amaya M.D., Ph.D. [address] [place] [phone] 04/21/2025 7:15 AM CDT Clinical Communication Virtual Review in [place], [place] 200 [place] [address] 04/22/2025 7:20 AM CDT Lab Department of Infusion Therapy in [address] [address] Skip Amaya M.D., Ph.D. [address] [place] [phone] 04/22/2025 9:20 AM CDT Office Visit Department of Oncology in [address] [address] Sandy Judge APRN, C.N.P., M.S. [address] [place] [address] 04/22/2025 10:30 AM CDT Infusion Department of Oncology in [place], [place] [address] [place] [address] Skip Amaya M.D., Ph.D. [address] [place] [phone] documented as of this encounter Goals Goal Patient Goal Type Associated Problems Recent Progress Patient-Stated? Author Autogenerat ed Goal Care Plan Autogenerated Problem No Hedy Lees, RDean documented as of this encounter Procedures Procedure Name Priority Date/Time Associated Diagnosis Comments CT PANCREAS ANGIOGRAM TRIPLE PHASE AND PELVIS WITH IV CONTRAST RAD - Routine (most inpatients and all outpatients) 12/28/2024 12:48 PM CDT Mass Pancreas documented in this encounter Results * CT Pancreas Angiogram Triple Phase and [...] Several suspicious peripancreatic and periportal lymph nodes. Garland COTTO CT PROCEDURES Final Result documented in this encounter Visit Diagnoses Diagnosis Mass Pancreas documented in this encounter Administered Medications Inactive Administered Medications - up to 3 most recent administrations Medication Order MAR Action Action Date Dose Rate Site iohexoL 350 mg iodine/mL solution 1-200 mL (Omnipaque) 1-200 mL, intravenous, Once in imaging, contrast, Starting on Fri12/28/24 at 1129, For 1 dose, Imaging Protocol Orders, Dose per Radiant Medication Guidelines Given 12/28/2024 12:31 PM CDT 140 mL sodium chloride (PF) 0.9 % injection 1-100 mL 1-100 mL, intravenous, Once, On Fri12/28/24 at 1145, For 1 dose, Imaging Protocol Orders, Dose per Radiant Medication Guidelines Given 12/28/2024 12:31 PM CDT 50 mL documented in this encounter Additional Health Concerns Active Problems Noted Date Diagnosed Date Autogenerated Problem 11/16/2024 documented as of this encounter Care Teams Putty And Caulking Supervisor Relationship Specialty Start Date End Date Elsewhere, Pcp PCP - General Internal Medicine 09/09/23 documented as of this encounter
--- OUTSIDE RECORDS SUMMARY | 2024-12-29 08:00 | XMS_ITS | Encounter Summary ---
Author Organization [facility] Address [address] [place] [address] Care Team Providers Care Hand Tube Winder Name Role Phone Elsewhere, Pcp Primary Care Provider Unavailabl e Reason for Referral * Outpatient (Routine) - Closed Specialty Diagnoses / Procedures Referred By Contomid carlisle Referred To Contact Medical Oncology / Oncology Diagnoses Mass Pancreas Drea Means APRN, C.N.P., D.N.P. [address] [place] [address] Phone: tel: fax: [facility] Region Referral ID Status Reason Start Date Expiration Date Visits Re quested Visits Authorized [id number] Closed 12/29/2024 06/30/2026 1 1 Reason for Visit * Appointment Request (Routine) - Authorized Specialty Diagnoses / Procedures Referred By Contact Referred To Contact Gastroenterology and Hepatology Diagnoses Malignant Neoplasm Of Pancreas Adenocarcinoma (HCC) Secondary Malignant Neoplasm Liver (HCC) Pain Right Upper Quadrant Loss Weight Abnormal Anorexia Non Psychogenic Hepatomegaly Mass Hepatic Marcela Alberto M.D. [address] [place] [phone] Phone: tel:[phone] fax:[phone] Referral ID Status Reason Start Date Expiration Date V isits Requested Visits Authorized [id number] Authorized 12/21/2024 03/23/2026 2 2 Encounter Details Date Type Department Care Team (Latest Contact Info) Description 12/29/2024 8:00 AM CDT Comprehensive Visit Division of Gastroenterology in [place], [place] [address] [place] [address] Drea Means APRN, C.N.P., D.N.P. [address] [place] [address] Mass Pancreas (Primary Dx) Social History Tobacco Use Types Packs/Day Years Used Date Smoking Tobacco: Never Passive Smoke Exposure: Past Smokeless Tobacco: Never Passive Exposure Comments:Ch ildhood exposure. Alcohol Use Standard Drinks/Week Comments Not Currently 1 (1 standard drink = 0.6 oz pur e alcohol) 0-1 drink per week [facility] Utilities Answer Date Recorded In the past 12 months has e [employer], gas, oil, or water [employer] threatened to shut off services in your [...] your living situation today? I have a [facility] place to live 12/23/2024 Sex and Gender Information Value Date Recorded Sex Assigned at Male 09/10/2023 7:48 AM HAT BODY INSPECTOR Legal Sex Male 10:11 PM HAT BODY INSPECTOR Gender Identity Male 09/10/2023 7:48 AM HAT BODY INSPECTOR Sexual Orientation Straight 09/10/2023 7: 48 AM HAT BODY INSPECTOR documented as of this encounter Last Filed Vital Signs Vital Sign Reading Time Taken Comments Blood Pressure 144/81 12/29/2024 7:44 AM CDT Pulse 93 12/29/2024 7:44 AM CDT Temperature - - Respiratory Rate - - Oxygen Saturation - - Inhaled Oxygen Concentration - - Weight 97.3 kg (214 lb 8.1 oz) 12/29/2024 7:44 A M CDT Height 183 cm (6' 0.05) 12/29/2024 7:44 AM CDT Body Mass Index 29.05 12/29/2024 7:44 AM CDT documented in this encounter H&P Notes * Drea Means, KASH, C.N.P., D.N.P. - 12/29/2024 8:00 AM CDT SUBJECTIVE CHIEF COMPLAINT / REASON FOR VISIT Noel Mata is a 69 y.o. male, patient who presents for evaluation of pancreas mass. HISTORY OF PRESENT ILLNESS Noel Mata is a 69 y.o. male, patient who presents for evaluation of pancreas mass. Noel hasa pertinent medical history seasonal affective disorder, depression, coronary artery disease (Plavix, s/p cardiac stent), stage 3a chronic kidney disease, hypertension, insomnia, hyperlipidemia, allergic rhinitis, obstructive sleep apnea on CPAP, gout. Per pancreas nurse pre-visit note, Mr. Mccnan referred to [facility] for a pancreatic mass. Noel reports seeking evaluation on 12/21/2024 for abdominal pain that radiated to his back. About 3 months prior to this, he was experiencing more [...] chest CT on 12/23/2024, which noted a minimally increased indeterminate right lower lobe pulmonary nodule measuring 9 mm. Noel took his last dose on the morning of 12/23/2024. He has been instructed by his local care team to hold this until he has a biopsy. The patient states goals for this visit are for diagnosis and treatment. GI symptoms: Decreased appetite. Early satiety. Occasional indigestion symptoms have resolved asidefrom some burping. He states that he feels better after eating BM: Normal per patient Pancreas personal history: Denies Pancreas family history: Denies Diabetes: Denies Pain: Denies Unintentional weight loss: Denies, however family says he has lost 20 lbs in the last 8 months unintentionally due to decreased appetite Jaundice: Denies Alcohol: Denies Smoking: Denies Imagin12/28/2024 CT pancreas angiogram triple phase: Approximately 4.5 cm hypoenhancing infiltrative mass in the tail of the pancreas. 5.1 cm x 2.6 cm bilobed cystic lesion upstream from the mass abutting the medial portion of the spleen and descendingcolon may represent a pseudocyst versus cystic or necrotic tumor. There is also a cystic lesion involving the posterior wall of the stomach which measures 1.8 cm, decreased from 3 cm. This may also represent a pseudocyst given the interval decrease in size. The splenic vein is occluded. 4 cm lobulated mass in the right lobe of the liver consistent with a metastasis. There is a an indeterminate 2 cm low-attenuation lesion in the left lobe and tiny lesion inferiorly in the right lobe.The liver could be further evaluated with MR if indicated. Several suspicious peripancreatic and periportal lymph nodes. 12/23/2024 CT Chest with IV Contrast Impression: [...] pancreatic adenocarcinoma versus a pancreatic cystic neoplasm. Ill-defined low-density lesion in hepatic segment 6 [...] with IV contrast recommended for further characterization. Labs: 12/23/2024 Alkaline Phosphatase: 189* U/L AST: 24 U/L ALT: 22 U/L Bilirubin: 0.9 mg/dL 12/21/2024 Ca 19-9: 15,462* U/mL [facility] Reference Range & Units 12/28/24 10:35 Hemoglobin 13.2 - 16.6 g/dL 15.4 Hematocrit 38.3 - 48.6 % 47.1 Erythrocytes 4.35 - 5.65 x10(12)/L 5.16 MCV 78.2 - 97.9 fL 91.3 RBC Distrib Width 11.8 - 14.5 % 13.1 Platelet Count 135 - 317 x10(9)/L 217 Leukocytes 3.4 - 9.6 x10(9)/L 11.0 (H) Neutrophils 1.56 - 6.45 x10(9)/L 7.16 (H) Lymphocytes 0.95 - 3.07 x10(9)/L 2.78 Monocytes 0.26 - 0.81 x10(9)/L 0.75 Eosinophils 0.03 - 0.48 x10(9)/L 0.20 Basophils 0.01 - 0.08 x10(9)/L 0.07 Prothrombin Time, P 9.4 - 12.5 sec 12.2 INR 0.9 - 1.1 1.1 Sodium, S 135 - 145 mmol/L 137 Potassium, S 3.6 - 5.2 mmol/L 4.8 Chloride, S 98 - 107 mmol/L 102 Bicarbonate, S 22 - 29 mmol/L 25 Anion Gap 7 - 15 10 BUN (Blood Urea Nitrogen), S 8 - 24 mg/dL 14 Creatinine 0.74 - 1.35 mg/dL 1.42 (H) Estimated GFR (eGFR) >=60 mL/min/BSA 53 (L) Calcium, Total, S 8.8 - 10.2 mg/dL 10.1 Glucose, S 70 - 140 mg/dL 90 Bilirubin, Total, S 0.0 - 1.2 mg/dL 0.6 Bilirubin, Direct, S 0.0 - 0.3 mg/dL 0.2 Alanine Aminotransferase (ALT), S 7 - 55 U/L 37 Aspartate Aminotransferase (AST), S 8 - 48 U/L 33 Alkaline Phosphatase, S 40 - 129 U/L 222 (H) Protein, Total, S 6.3 - 7.9 g/dL 6.9 Albumin, S 3.5 - 5.0 g/dL 4.5 Hemoglobin A1c, B 4.0 - 5.6 % 6.2 (H) Carbohydrate Ag 19-9, S <35 U/mL 27135 (H) Cell-free DNA KRAS 12, 13, 61,146, Blood Rpt (IP) The following portions of the patient's history were reviewed and updated as appropriate: allergies, current medications, family history, medical history, social history, surgical history, and problem list. REVIEW OF SYSTEMS Constitutional: Positive for loss of appetite and weight loss of more than 10 pounds. Cardiovascular: - Negative for chest pain, pressure or tightness. Gastrointestinal: - Negative for constipation, diarrhea, heartburn, nausea and vomiting. OBJECTIVE PHYSICAL EXAMINATION General Appearance: Well developed, well-nourished and in no acute distress. Eyes: Conjunctivae non-injected; sclerae anicteric; Vision grossly intact. Neck: Supple, non-tender without lymphadenopathy, masses or thyromegaly. Abdomen: Soft, nontender without guarding, rebound, masses, or hepatosplenomegaly. Neurologic: Alert and oriented. Psychiatric: Grossly intact. Vitals: 12/29/24 0744 BP: 144/81 Pulse: 93 PainSc: 0-No pain ASSESSMENT / PLAN #1 Mass Pancreas I had a detailed discussion with the patient and his family in regards to his recent image findingsof a pancreas mass with concern for metastatic involvement. See HPI for details. At today's visit, he reports that he is relatively asymptomatic aside from early satiety/decreased appetite and associated weight loss. Denies nausea, vomiting, changes in bowel patterns, abdominal pain, jaundice. Noel completed a CT pancreas angiogram yesterday that confirmed a 4.5 cm hypoenhancing mass in thepancreatic tail suspicious for adenocarcinoma. Additionally, a 4 cm lobulated mass in the right lobe of the liver consistent with a metastasis. There is an indeterminate 2 cm low-attenuation lesion in the left lobe and tiny lesion inferiorly in the right lobe. Several suspicious peripancreatic and periportal lymph nodes. CA 19-9 markedly elevated. Bilirubin, AST, ALT within normal limits. Mildly elevated A1c at 6.2%. He is scheduled for an ultrasound guided liver biopsy tomorrow for confirmation of image findings. I will plan to call the patient to discuss biopsy results once received. Patient was initially scheduled for an oncology visit with [facility] on 12/28, however that appointment had to be unfortunately canceled due to his imaging appointment here. He is scheduled with medical GI oncology at [facility] 02/22 however the patient's and daughter requested his oncology appointment be completed at [facility] which is closer to home and where his daughter works. Upcoming appointments: clinical genomics 12/29/2024, ultrasound liver biopsy 12/30/2024, oncology 02/22/2025, Signs and symptoms warranting further evaluation including jaundice, unintentional weight loss, newonset diabetes, severe abdominal pain/episode of pancreatitis were discussed. All questions were answered to the best of my ability. Patient was in agreement with the plan. hr consultant: Dr. Worthy I spent 40 minutes face to face and non-face to face caring for the patient today. documented in this encounter Plan of Treatment Upcoming Encounters Date Type Department Care Team (Latest Contact Info) Description 02/04/2025 7:00 AM CDT Lab Department of Infusion Therapy in [place], [place] [address] [place] [phone] Skip Amaya M.D., Ph.D. [address] [place] [phone] 02/04/2025 8:20 AM CDT Office Visit Department of Oncology in [place], [place] [address] [place] [phone] Jag Frye APRN, C.N.P., D.N.P. [address] [place] [phone] 02/04/2025 2:00 PM CDT Infusion Department of Oncology in [place], [place] [address] [place] [phone] Skip Amaya M.D., Ph.D. [address] [place] [phone] 02/08/2025 2:15 PM CDT Clinical Communication Virtual Review in [place], [place] 200 [place] [phone] 02/09/2025 9:30 AM CDT Telemedicine Department of Oncology in [address] [address] Jesica Wasserman M.B., B.Ch. [address] [place] [phone] Cecily Nash L.I.C.S.W. [address] [place] [phone] 02/10/2025 12:00 PM CDT Lab Department of Infusion Therapy in [address] [phone] Skip Amaya M.D., Ph.D. [address] [place] [phone] 02/10/2025 2:30 PM CDT Office Visit Department of Oncology in [place], [place] [address] [place] [phone] Rosenda Garza MPAS, P.A.-C. [address] [place] [phone] 02/11/2025 8:00 AM CDT Infusion Department of Oncology in [address] [phone] Skip Amaya M.D., Ph.D. [address] [place] [phone] 02/23/2025 2:15 PM CDT Clinical Communication Virtual Review in [place], [place] [address] [place] [address] 02/25/2025 8:30 AM CDT Lab Department of Oncology in [place], [place] [address] [place] [phone] Skip Amaya M.D., Ph.D. [address] [place] [phone] 02/25/2025 10:40 AM CDT Office Visit Department of Oncology in [address] [phone] Sandy Judge APRN, C.N.P., M.S. [address] [place] [phone] 02/25/2025 11:30 AM CDT Infusion Department of Oncology in [address] [phone] Skip Amaya M.D., Ph.D. [address] [place] [phone] 03/04/2025 6:00 AM CDT Lab Department of Infusion Therapy in [address] [phone] Skip Amaya M.D., Ph.D. [address] [place] [phone] 03/04/2025 8:10 AM CDT Office Visit Department of Oncology in [address] [phone] Jie Shook P.A.-C. [address] [place] [phone] 03/04/2025 9:30 AM CDT Infusion Department of Oncology in [place], [place] [address] [place] [phone] Skip Amaya M.D., Ph.D. [address] [place] [phone] 03/10/2025 2:15 PM CDT Clinical Communication Virtual Review in [place], [place] [address] [place] [address] 03/11/2025 6:00 AM CDT Lab Department of Laboratory Medicine and Pathology, [facility] in [place], [place] [address] [place] [phone] Skip Amaya M.D., Ph.D. [address] [place] [phone] 03/11/2025 7:20 AM CDT Office Visit Department of Oncology in [address] [phone] Bipin Leal P.A.-C., M.S. [address] [place] [phone] 03/11/2025 8:00 AM CDT Infusion Department of Oncology in [address] [phone] Skip Amaya M.D., Ph.D. [address] [place] [phone] 03/24/2025 11:20 AM CDT Lab Department of Infusion Therapy in [address] [phone] Skip Amaya M.D., Ph.D. [address] [place] [phone] 03/24/2025 1:30 PM CDT Office Visit Department of Oncology in [place], [place] [address] [place] [phone] Skip Amaya M.D., Ph.D. [address] [place] [phone] 03/25/2025 7:00 AM CDT Infusion Department of Oncology in [place], [place] [address] [place] [phone] Skip Amaya M.D., Ph.D. [address] [place] [phone] 03/29/2025 2:30 PM CDT Clinical Communication Virtual Review in [place], [place] 200 [place] [address] 04/01/2025 6:00 AM CDT Lab Department of Infusion Therapy in [place], [place] [address] [place] [phone] Skip Amaya M.D., Ph.D. [address] [place] [phone] 04/01/2025 8:20 AM CDT Office Visit Department of Oncology in [address] [address] Precious Hill M.D., Ph.D. [address] [place] [phone] 04/01/2025 9:00 AM CDT Infusion Department of Oncology in [address] [phone] Skip Amaya M.D., Ph.D. [address] [place] [phone] 04/07/2025 11:00 AM CDT Lab Department of Infusion Therapy in [place], [place] [address] [place] [phone] Skip Amaya M.D., Ph.D. [address] [place] [phone] 04/07/2025 1:20 PM CDT Office Visit Department of Oncology in [place], [place] [address] [place] [phone] Sandy Judge APRN, C.N.P., M.S. [address] [place] [phone] 04/08/2025 7:00 AM CDT Infusion Department of Oncology in [place], [place] [address] [place] [phone] Skip Amaya M.D., Ph.D. [address] [place] [phone] 04/21/2025 7:15 AM CDT Clinical Communication Virtual Review in [place], [place] 200 [place] [address] 04/22/2025 7:20 AM CDT Lab Department of Infusion Therapy in [address] [phone] Skip Amaya M.D., Ph.D. [address] [place] [phone] 04/22/2025 9:20 AM CDT Office Visit Department of Oncology in [place], [place] [address] [place] [phone] Sandy Judge APRN, C.N.P., M.S. [address] [place] [phone] 04/22/2025 10:30 AM CDT Infusion Department of Oncology in [place], [place] [address] [place] [phone] Skip Amaya M.D., Ph.D. [address] [place] [address] Scheduled Referrals Name Type Priority Associated Diagnoses Orde r Schedule Oncology - Medical, GI consult (clinic) Outpatient Referral Routine Mass Pancreas Expected: 12/29/2024, Expires: 03/31/2026 documented as of this encounter Goals Goal Patient Goal Type Associated Problems Recent Progress Patient-Stated? Author Autogenerat ed Goal Care Plan Autogenerated Problem No Hedy Lees, RJustynN. documented as of this encounter Visit Diagnoses Diagnosis Mass Pancreas- Primary documented in this encounter Additional Health Concerns Active Problems Noted Date Diagnosed Date Autogenerated Problem 11/16/2024 documented as of this encounter Care Teams Hand Tube Winder Relationship Specialty Start Date End Date Elsewhere, Pcp PCP - General Internal Medicine 09/09/23 documented as of this encounter
--- OUTSIDE RECORDS SUMMARY | 2024-12-29 12:30 | XMS_ITS | Encounter Summary ---
Author Organization [facility] Address [address] [place] [address] Care Team Providers Care Copper Plate Printer Name Role Phone Elsewhere, Pcp Primary Care Provider Unavailabl e Reason for Visit * Outpatient (Routine) - Closed Specialty Diagnoses / Procedures Referred By Meeta carlisle Referred To Contact Clinical Genomics Diagnoses Mass Pancreas Garland Porter M.D. [address] [place] [phone] Phone: tel: fax: [facility] Referral ID Status Reason Start Date Expiration Date Visits Re quested Visits Authorized [id number] Closed 12/24/2024 06/25/2026 1 1 Encounter Details Date Type Department Care Team (Late st Contact Info) Description 12/29/2024 12:30 PM CDT Comprehensive Visit Department of Medical Genetics in [place], [place] [address] [place] [phone] Garland Porter M.D. [address] [place] [phone] Es Benson Unlicensed MA Mass Pancreas Social History Tobacco Use Types Packs/Day Years Used Date Smoking Tobacco: Never Passive Smoke Exposure: Past Smokeless Tobacco: Never Passive Exposure Comments:Ch ildhood exposure. Alcohol Use Standard Drinks/Week Comments Not Currently 1 (1 standard drink = 0.6 oz pur e alcohol) 0-1 drink per week [facility] Utilities Answer Date Recorded In the past [...] your living situation today? [facility] 12/23/2024 Sex and Gender Information Value Date Recorded Sex Assigned at Male 09/10/2023 7:48 AM ROLLED MATERIALS WORKER Legal Sex Male 10:11 PM ROLLED MATERIALS WORKER Gender Identity Male 09/10/2023 7:48 AM ROLLED MATERIALS WORKER Sexual Orientation Straight 09/10/2023 7: 48 AM ROLLED MATERIALS WORKER documented as of this encounter Progress Notes * Es Benson Unlicensed MA - 12/29/2024 12:30 PM CDT REFERRAL Garland Porter M.D. CHIEF COMPLAINT/PURPOSE OF VISIT Obtain and construct family history for clinical assessment. HISTORY OF PRESENT ILLNESS Please see Danay Diaz CGC's Clinical Genomics consultation for further details. FAMILY HISTORY Per the referral of Garland Porter M.D., a comprehensive family history was obtained and constructed for the Clinical Genomics consult. The complete family history has been saved as a scanned document and is available for viewing. The patient will be seen in Clinical Genomics by Danay Diaz CGC. Please see the consult note regarding pertinent findings of the family history in relation to the differential diagnosis and clinical assessment. Total time: 15 minutes documented in this encounter Plan of Treatment Upcoming Encounters Date Type Department Care Team (Latest Contact Info) Description 02/04/2025 7:00 AM CDT Lab Department of Infusion Therapy in [address] [phone] Skip Amaya M.D., Ph.D. [address] [place] [phone] 02/04/2025 8:20 AM CDT Office Visit Department of Oncology in [address] [phone] Jag Frye, KASH, C.N.P., D.N.P. [address] [place] [phone] 02/04/2025 2:00 PM CDT Infusion Department of Oncology in [address] [phone] Skip Amaya M.D., Ph.D. [address] [place] [phone] 02/08/2025 2:15 PM CDT Clinical Communication Virtual Review in [address] [phone] 02/09/2025 9:30 AM CDT Telemedicine Department of Oncology in [address] [phone] Jesica Wasserman M.B., B.Ch. [address] [place] [phone] Cecily Nash L.I.C.S.W. [address] [place] [phone] 02/10/2025 12:00 PM CDT Lab Department of Infusion Therapy in [address] [address] Skip Amaya M.D., Ph.D. [address] [place] [phone] 02/10/2025 2:30 PM CDT Office Visit Department of Oncology in [place], [place] [address] [place] [phone] Rosenda Garza MPAS, P.A.-C. [address] [place] [phone] 02/11/2025 8:00 AM CDT Infusion Department of Oncology in [place], [place] [address] [place] [phone] Skip Amaya M.D., Ph.D. [address] [place] [phone] 02/23/2025 2:15 PM CDT Clinical Communication Virtual Review in [place], [place] 200 [place] [address] 02/25/2025 8:30 AM CDT Lab Department of Oncology in [address] [address] Skip Amaya M.D., Ph.D. [address] [place] [phone] 02/25/2025 10:40 AM CDT Office Visit Department of Oncology in [place], [place] [address] [place] [phone] Sandy Judge, KASH, C.N.P., M.S. [address] [place] [phone] 02/25/2025 11:30 AM CDT Infusion Department of Oncology in [place], [place] [address] [place] [phone] Skip Amaya M.D., Ph.D. [address] [place] [phone] 03/04/2025 6:00 AM CDT Lab Department of Infusion Therapy in [place], [place] [address] [place] [phone] Skip Amaya M.D., Ph.D. [address] [place] [phone] 03/04/2025 8:10 AM CDT Office Visit Department of Oncology in [address] [phone] Jie Shook P.A.-C. [address] [place] [phone] 03/04/2025 9:30 AM CDT Infusion Department of Oncology in [place], [place] [address] [place] [phone] Skip Amaya M.D., Ph.D. [address] [place] [phone] 03/10/2025 2:15 PM CDT Clinical Communication Virtual Review in [place], [place] 200 [place] [address] 03/11/2025 6:00 AM CDT Lab Department of Laboratory Medicine and Pathology, [facility], in [place], [place] [address] [place] [phone] Skip Amaya M.D., Ph.D. [address] [place] [phone] 03/11/2025 7:20 AM CDT Office Visit Department of Oncology in [address] [address] Bipin Leal P.A.-C., M.S. [address] [place] [phone] 03/11/2025 8:00 AM CDT Infusion Department of Oncology in [place], [place] [address] [place] [phone] Skip Amaya M.D., Ph.D. [address] [place] [phone] 03/24/2025 11:20 AM CDT Lab Department of Infusion Therapy in [place], [place] [address] [place] [phone] Skip Amaya M.D., Ph.D. [address] [place] [phone] 03/24/2025 1:30 PM CDT Office Visit Department of Oncology in [place], [place] [address] [place] [phone] Skip Amaya M.D., Ph.D. [address] [place] [phone] 03/25/2025 7:00 AM CDT Infusion Department of Oncology in [place], [place] [address] [place] [phone] Skip Amaya M.D., Ph.D. [address] [place] [phone] 03/29/2025 2:30 PM CDT Clinical Communication Virtual Review in [place], [place] 200 [place] [address] 04/01/2025 6:00 AM CDT Lab Department of Infusion Therapy in [address] [address] Skip Amaya M.D., Ph.D. [address] [place] [phone] 04/01/2025 8:20 AM CDT Office Visit Department of Oncology in [address] [address] Precious Hill M.D., Ph.D. [address] [place] [phone] 04/01/2025 9:00 AM CDT Infusion Department of Oncology in [address] [address] Skip Amaya M.D., Ph.D. [address] [place] [phone] 04/07/2025 11:00 AM CDT Lab Department of Infusion Therapy in [address] [phone] Skip Amaya M.D., Ph.D. [address] [place] [phone] 04/07/2025 1:20 PM CDT Office Visit Department of Oncology in [address] [phone] Sandy Judge, KASH, C.N.P., M.S. [address] [place] [phone] 04/08/2025 7:00 AM CDT Infusion Department of Oncology in [address] [address] Skip Amaya M.D., Ph.D. [address] [place] [phone] 04/21/2025 7:15 AM CDT Clinical Communication Virtual Review in [address] [address] 04/22/2025 7:20 AM CDT Lab Department of Infusion Therapy in [place], [place] [address] [place] [phone] Skip Amaya M.D., Ph.D. [address] [place] [phone] 04/22/2025 9:20 AM CDT Office Visit Department of Oncology in [place], [place] [address] [place] [phone] Sandy Judge APRN, C.N.P., M.S. [address] [place] [phone] 04/22/2025 10:30 AM CDT Infusion Department of Oncology in [place], [place] [address] [place] [phone] Skip Amaya M.D., Ph.D. [address] [place] [address] [phone] documented as of this encounter Goals Goal Patient Goal Type Associated Problems Recent Progress Patient-Stated? Author Autogenerat ed Goal Care Plan Autogenerated Problem Hedy Frankel R.N. documented as of this encounter Visit Diagnoses Diagnosis Mass Pancreas documented in this encounter Additional Health Concerns Active Problems Noted Date Diagnosed Date Autogenerated Problem 11/16/2024 documented as of this encounter Care Teams Copper Plate Printer Relationship Specialty Start Date End Date Elsewhere, Pcp PCP - General Internal Medicine 09/09/23 documented as of this encounter
--- OUTSIDE RECORDS SUMMARY | 2024-12-29 12:42 | XMS_ITS | Encounter Summary ---
Author Organization [facility] Address [address] [place] [address] Care Team Providers Care Assistant Community Manager Name Role Phone Elsewhere, Pcp Primary Care Provider Unavailabl e Encounter Details Date Type Department Care Team (Latest Contact Info) Description 12/29/2024 12:42 PM CDT - 12/29/2024 11:59 PM CDT Hospital Encounter Department of Laboratory Medicine and Pathology, [facility] in [place], [place] [address] [place] [address] Usman Borrego M.D. [address] [place] [address] Mass Pancreas Discharge Disposition: Home or Self Care Social History Tobacco Use Types Packs/Day Years Used Date Smoking Tobacco: Never Passive Smoke Exposure: Past Smokeless Tobacco: Never Passive Exposure Comments:Ch ildhood exposure. Alcohol Use Standard Drinks/Week Comments Not Currently 1 (1 standard drink = 0.6 oz pur e alcohol) 0-1 drink per week [facility] Utilities Answer Date Recorded In the past 12 months has [employer], gas, oil, or water company threatened [...] living situation today? I have a [facility] place to live 12/23/2024 Sex and Gender Information Value Date Recorded Sex Assigned at Male 09/10/2023 7:48 AM REPORTING SPECIALIST Legal Sex Male 10:11 PM REPORTING SPECIALIST Gender Identity Male 09/10/2023 7:48 AM REPORTING SPECIALIST Sexual Orientation Straight 09/10/2023 7: 48 AM REPORTING SPECIALIST documented as of this encounter Medications at [...] by mouth as needed for erectile dysfunction. clopidogreL (Plavix) 75 mg tablet Take 1 tablet by mouth daily. 02/19/2024 5 oxyCODONE (Roxicodone) 5 mg immediate release tablet Take 5-10 mg by mouth every 4 (four) hours as needed. 12/27/2024 5 documented as of this encounter Plan of Treatment Upcoming Encounters Date Type Department Care Team (Latest Contact Info) Description 02/04/2025 7:00 AM CDT Lab Department of Infusion Therapy in [address] [phone] Skip Amaya M.D., Ph.D. [address] [place] [phone] 02/04/2025 8:20 AM CDT Office Visit Department of Oncology in [address] [phone] Jag Frye, KASH, C.N.P., D.N.P. [address] [place] [phone] 02/04/2025 2:00 PM CDT Infusion Department of Oncology in [address] [phone] Skip Amaya M.D., Ph.D. [address] [place] [phone] 02/08/2025 2:15 PM CDT Clinical Communication Virtual Review in [place], [place] 200 [place] [address] 02/09/2025 9:30 AM CDT Telemedicine Department of Oncology in [address] [phone] Jesica Wasserman M.B., B.Ch. [address] [place] [phone] Cecily Nash L.I.C.S.W. [address] [place] [address] 02/10/2025 12:00 PM CDT Lab Department of Infusion Therapy in [address] [address] Skip Amaya M.D., Ph.D. [address] [place] [phone] 02/10/2025 2:30 PM CDT Office Visit Department of Oncology in [address] [phone] Rosenda Garza MPAS, P.A.-C. [address] [place] [phone] 02/11/2025 8:00 AM CDT Infusion Department of Oncology in [address] [address] Skip Amaya M.D., Ph.D. [address] [place] [phone] 02/23/2025 2:15 PM CDT Clinical Communication Virtual Review in [address] [phone] 02/25/2025 8:30 AM CDT Lab Department of Oncology in [address] [address] Skip Amaya M.D., Ph.D. [address] [place] [phone] 02/25/2025 10:40 AM CDT Office Visit Department of Oncology in [address] [phone] Sandy Judge, KASH, C.N.P., M.S. [address] [place] [phone] 02/25/2025 11:30 AM CDT Infusion Department of Oncology in [place], [place] [address] [place] [phone] Skip Amaya M.D., Ph.D. [address] [place] [phone] 03/04/2025 6:00 AM CDT Lab Department of Infusion Therapy in [place], [place] [address] [place] [phone] Skip Amaya M.D., Ph.D. [address] [place] [phone] 03/04/2025 8:10 AM CDT Office Visit Department of Oncology in [place], [place] [address] [place] [phone] Jie Shook P.A.-C. [address] [place] [phone] 03/04/2025 9:30 AM CDT Infusion Department of Oncology in [place], [place] [address] [place] [phone] Skip Amaya M.D., Ph.D. [address] [place] [phone] 03/10/2025 2:15 PM CDT Clinical Communication Virtual Review in [place], [place] 200 [place] [address] 03/11/2025 6:00 AM CDT Lab Department of Laboratory Medicine and Pathology, [facility], in [place], [place] [address] [place] [phone] Skip Amaya M.D., Ph.D. [address] [place] [phone] 03/11/2025 7:20 AM CDT Office Visit Department of Oncology in [place], [place] [address] [place] [phone] Bipin Leal P.A.-C., M.S. [address] [place] [phone] 03/11/2025 8:00 AM CDT Infusion Department of Oncology in [place], [place] [address] [place] [phone] Skip Amaya M.D., Ph.D. [address] [place] [phone] 03/24/2025 11:20 AM CDT Lab Department of Infusion Therapy in [place], [place] [address] [place] [phone] Skip Amaya M.D., Ph.D. [address] [place] [phone] 03/24/2025 1:30 PM CDT Office Visit Department of Oncology in [address] [address] Skip Amaya M.D., Ph.D. [address] [place] [phone] 03/25/2025 7:00 AM CDT Infusion Department of Oncology in [place], [place] [address] [place] [phone] Skip Amaya M.D., Ph.D. [address] [place] [phone] 03/29/2025 2:30 PM CDT Clinical Communication Virtual Review in [place], [place] 200 [place] [address] 04/01/2025 6:00 AM CDT Lab Department of Infusion Therapy in [place], [place] [address] [place] [phone] Skip Amaya M.D., Ph.D. [address] [place] [phone] 04/01/2025 8:20 AM CDT Office Visit Department of Oncology in [place], [place] [address] [place] [phone] Precious Hill M.D., Ph.D. [address] [place] [phone] 04/01/2025 9:00 AM CDT Infusion Department of Oncology in [place], [place] [address] [place] [phone] Skip Amaya M.D., Ph.D. [address] [place] [phone] 04/07/2025 11:00 AM CDT Lab Department of Infusion Therapy in [address] [address] Skip Amaya M.D., Ph.D. [address] [place] [phone] 04/07/2025 1:20 PM CDT Office Visit Department of Oncology in [address] [phone] Sandy Judge, KASH, C.N.P., M.S. [address] [place] [phone] 04/08/2025 7:00 AM CDT Infusion Department of Oncology in [address] [address] Skip Amaya M.D., Ph.D. [address] [place] [phone] 04/21/2025 7:15 AM CDT Clinical Communication Virtual Review in [place], [place] 200 [place] [phone] 04/22/2025 7:20 AM CDT Lab Department of Infusion Therapy in [place], [place] [address] [place] [phone] Skip Amaya M.D., Ph.D. [address] [place] [phone] 04/22/2025 9:20 AM CDT Office Visit Department of Oncology in [address] [phone] Sandy Judge, KASH, C.N.P., M.S. [address] [place] [phone] 04/22/2025 10:30 AM CDT Infusion Department of Oncology in [place], [place] [address] [place] [phone] Skip Amaya M.D., Ph.D. [address] [place] [phone] documented as of this encounter Goals Goal Patient Goal Type Associated Problems Recent Progress Patient-Stated? Author Autogenerat ed Goal Care Plan Autogenerated Problem Hedy Frankel, R.N. documented as of this encounter Procedures Procedure Name Priority Date/Time Associated Diagnosis Comments [employer] Routine 12/29/2024 12:53 PM CDT MISCELLANEOUS SENT OUT LAB TEST Routine 12/29/2024 12:50 PM CDT Mass Pancreas documented in this encounter Results * [employer] Sent Out Lab (12/29/2024 12:53 PM CDT) Test Name [facility] Custom + RNA Panel 12/29/2024 12:53 PM CDT INVC Result SEE COMMENT 01/05/2025 1:01 PM CDT [facility] Comment: For final report, select Lab-Send Out Lab Results hyperlink below. 12/29/2024 12:5 3 PM CDT 12/29/2024 3:45 PM CDT Usman Borrego M.D. LAB MISC ORDERABLES Final Result [employer] [address] [place] [address], [facility] [employer] [address] [place] [address] * [id number] [facility] Custom + RNA Panel - Miscellaneous Test (12/29/2024 12:50 PM CDT) Test Name [facility] Custom + RNA Panel 12/29/2024 12:50 PM CDT HLS Result Specimen sent out; results to follow DEFAULT 12/29/2024 12:50 PM CDT HLS Blood (Blood, Venous) 12/29/2024 12:50 PM CDT 12/29/2024 12:50 PM CDT Usman Borrego M.D. LAB MISC ORDERABLES Final Result [facility] [address] [place] [address], [facility] [address] [place] [address] documented in this encounter Visit Diagnoses Diagnosis Mass Pancreas documented in this encounter Additional Health Concerns Active Problems Noted Date Diagnosed Date Autogenerated Problem 11/16/2024 documented as of this encounter Care Teams Assistant Community Manager Relationship Specialty Start Date End Date Elsewhere, Pcp PCP - General Internal Medicine 09/09/23 documented as of this encounter
--- OUTSIDE RECORDS SUMMARY | 2024-12-29 13:00 | XMS_ITS | Encounter Summary ---
Author Organization [facility] Address [address] [place] [id number] Care Team Providers Care Part Time Name Role Phone Elsewhere, Pcp Primary Care Provider Unavailabl e Reason for Visit * Outpatient (Routine) - Closed Specialty Diagnoses / Procedures Referred By Meeta carlisle Referred To Contact Clinical Genomics Diagnoses Mass Pancreas Garland Porter M.D. [address] [place] [phone] Phone: tel: fax: [facility] Referral ID Status Reason Start Date Expiration Date Visits Re quested Visits Authorized [id number] Closed 12/24/2024 06/25/2026 1 1 Encounter Details Date Type Department Care Team (Latest Contact Info) Description 12/29/2024 1:00 PM CDT Comprehensive Visit Department of Medical Genetics in [place], [place] [address] [place] [phone] Garland Porter M.D. [address] [place] [address] [phone] Danay Diaz M.S., [facility] [address] [place] [address] [phone] Mass Pancreas (Primary Dx) Social History Tobacco Use Types Packs/Day Years Used Date Smoking Tobacco: Never Passive Smoke Exposure: Past Smokeless Tobacco: Never Passive Exposure Comments:Ch ildhood exposure. Alcohol Use Standard Drinks/Week Comments Not Currently 1 (1 standard drink = 0.6 oz pur e alcohol) 0-1 drink per week [facility] Utilities Answer Date Recorded In [...] living situation today? I have a [facility] place to live 12/23/2024 Education Answer Date Recorded What is the highest level of school you have completed or the highest degree you have received? Master's degree (e.g., MA, MS, Katelyn, MEd, [employer], KELLEE) 01/05/2025 Sex and Gender Information Value Date Recorded Sex Assigned at Male 09/10/2023 7:48 AM MANAGER SECURITY Legal Sex Male 10:11 PM MANAGER SECURITY Gender Identity Male 09/10/2023 7:48 AM MANAGER SECURITY Sexual Orientation Straight 09/10/2023 7: 48 AM MANAGER SECURITY documented as of this encounter Consult Notes * Danay Diaz MJustynS., [facility] - 12/29/2024 1:00 PM CDT Images from the original note were not included. REFERRING PROVIDER Garladn Porter M.D. CHIEF COMPLAINT Personal diagnosis of [...] for viewing under the Media tab of iodine. Our risk assessment is based upon medical [...] BRCA2 mutation may also predict response to [place]-based chemotherapy. If the patienttested positive for a [...] pursue the Multi-Cancer + RNA panel through [facility]. Noel will complete a blood draw today. [...] screening recommendations, suchas those made by the [employer], do remain appropriate. It was a pleasure to meet Noel. The family is certainly welcome to contact us with any additional questions. PATIENT EDUCATION: All of the above was discussed in detail with the patient who verbalized understanding. The patient's questions were answered. Total time: 12 minutes Electronically signed by Danay Diaz M.S., [facility] at 01/10/2025 7:53 AM CDT documented in this encounter Plan of Treatment Upcoming Encounters Date Type Department Care Team (Latest Contact Info) Description 02/04/2025 7:00 AM CDT Lab Department of Infusion Therapy in [place], [place] [address] [place] [phone] Skip Amaya M.D., Ph.D. [address] [place] [phone] 02/04/2025 8:20 AM CDT Office Visit Department of Oncology in [place], [place] [address] [place] [address] [phone] Jag Frye, KASH, C.N.P., D.N.P. [address] [place] [phone] 02/04/2025 2:00 PM CDT Infusion Department of Oncology in [place], [place] [address] [place] [phone] Skip Amaya M.D., Ph.D. [address] [place] [phone] 02/08/2025 2:15 PM CDT Clinical Communication Virtual Review in [place], [place] 200 [place] [phone] 02/09/2025 9:30 AM CDT Telemedicine Department of Oncology in [address] [phone] Jesica Wasserman M.B., B.Ch. [address] [place] [phone] Cecily Nash, WeroI.C.S.W. [address] [place] [phone] 02/10/2025 12:00 PM CDT Lab Department of Infusion Therapy in [place], [place] [address] [place] [address] [phone] Skip Amaya M.D., Ph.D. [address] [place] [phone] 02/10/2025 2:30 PM CDT Office Visit Department of Oncology in [place], [place] [address] [place] [phone] Rosenda Garza MPAS, P.A.-C. [address] [place] [phone] 02/11/2025 8:00 AM CDT Infusion Department of Oncology in [place], [place] [address] [place] [phone] Skip Amaya M.D., Ph.D. [address] [place] [phone] 02/23/2025 2:15 PM CDT Clinical Communication Virtual Review in [place], [place] 200 [place] [phone] 02/25/2025 8:30 AM CDT Lab Department of Oncology in [place], [place] [address] [place] [phone] Skip Amaya M.D., Ph.D. [address] [place] [phone] 02/25/2025 10:40 AM CDT Office Visit Department of Oncology in [place], [place] [address] [place] [phone] Sandy Judge, KASH, C.N.P., M.S. [address] [place] [phone] 02/25/2025 11:30 AM CDT Infusion Department of Oncology in [place], [place] [address] [place] [phone] Skip Amaya M.D., Ph.D. [address] [place] [phone] 03/04/2025 6:00 AM CDT Lab Department of Infusion Therapy in [address] [phone] Skip Amaya M.D., Ph.D. [address] [place] [phone] 03/04/2025 8:10 AM CDT Office Visit Department of Oncology in [place], [place] [address] [place] [phone] Jie Shook P.A.-C. [address] [place] [phone] 03/04/2025 9:30 AM CDT Infusion Department of Oncology in [place], [place] [address] [place] [phone] Skip Amaya M.D., Ph.D. [address] [place] [phone] 03/10/2025 2:15 PM CDT Clinical Communication Virtual Review in [place], [place] 200 [place] [phone] 03/11/2025 6:00 AM CDT Lab Department of Laboratory Medicine and Pathology, [facility] in [place], [place] [address] [place] [phone] Skip Amaya M.D., Ph.D. [address] [place] [phone] 03/11/2025 7:20 AM CDT Office Visit Department of Oncology in [place], [place] [address] [place] [phone] Bipin Leal P.A.-C., M.S. [address] [place] [phone] 03/11/2025 8:00 AM CDT Infusion Department of Oncology in [place], [place] [address] [place] [phone] Skip Amaya M.D., Ph.D. [address] [place] [phone] 03/24/2025 11:20 AM CDT Lab Department of Infusion Therapy in [place], [place] [address] [place] [phone] Skip Amaya M.D., Ph.D. [address] [place] [phone] 03/24/2025 1:30 PM CDT Office Visit Department of Oncology in [place], [place] [address] [place] [phone] Skip Amaya M.D., Ph.D. [address] [place] [phone] 03/25/2025 7:00 AM CDT Infusion Department of Oncology in [address] [phone] Skip Amaya M.D., Ph.D. [address] [place] [phone] 03/29/2025 2:30 PM CDT Clinical Communication Virtual Review in [address] [phone] 04/01/2025 6:00 AM CDT Lab Department of Infusion Therapy in [address] [phone] Skip Amaya M.D., Ph.D. [address] [place] [phone] 04/01/2025 8:20 AM CDT Office Visit Department of Oncology in [address] [phone] Precious Hill M.D., Ph.D. [address] [place] [phone] 04/01/2025 9:00 AM CDT Infusion Department of Oncology in [address] [phone] Skip Amaya M.D., Ph.D. [address] [place] [phone] 04/07/2025 11:00 AM CDT Lab Department of Infusion Therapy in [place], [place] [address] [place] [phone] Skip Amaya M.D., Ph.D. [address] [place] [phone] 04/07/2025 1:20 PM CDT Office Visit Department of Oncology in [place], [place] [address] [place] [phone] Sandy Judge APRN, C.N.P., M.S. [address] [place] [phone] 04/08/2025 7:00 AM CDT Infusion Department of Oncology in [place], [place] [address] [place] [phone] Skip Amaya M.D., Ph.D. [address] [place] [phone] 04/21/2025 7:15 AM CDT Clinical Communication Virtual Review in [place], [place] 200 [place] [phone] 04/22/2025 7:20 AM CDT Lab Department of Infusion Therapy in [place], [place] [address] [place] [phone] Skip Amaya M.D., Ph.D. [address] [place] [phone] 04/22/2025 9:20 AM CDT Office Visit Department of Oncology in [place], [place] [address] [place] [phone] Sandy Judge APRN, C.N.P., M.S. [address] [place] [phone] 04/22/2025 10:30 AM CDT Infusion Department of Oncology in [place], [place] [address] [place] [phone] Skip Amaya M.D., Ph.D. [address] [place] [phone] documented as of this encounter Goals Goal Patient Goal Type Associated Problems Recent Progress Patient-Stated? Author Autogenerat ed Goal Care Plan Autogenerated Problem No Hedy Lees, RDean documented as of this encounter Results * [id number] [facility] Custom + RNA Panel - Miscellaneous Test (12/29/2024 12:50 PM CDT) Test Name [facility] Custom + RNA Panel 12/29/2024 12:50 PM CDT HLS Result Specimen sent out; results to follow DEFAULT 12/29/2024 12:50 PM CDT HLS Blood (Blood, Venous) 12/29/2024 12:50 PM CDT 12/29/2024 12:50 PM CDT Usman Borrego M.D. LAB MISC ORDERABLES Final Result [facility] [address] [place] [address], [facility] HLS [facility] [address] [place] [address] documented in this encounter Visit Diagnoses Diagnosis Mass Pancreas- Primary documented in this encounter Additional Health Concerns Active Problems Noted Date Diagnosed Date Autogenerated Problem 11/16/2024 documented as of this encounter Care Teams Part Time Relationship Specialty Start Date End Date Elsewhere, Pcp PCP - General Internal Medicine 09/09/23 documented as of this encounter
--- OUTSIDE RECORDS SUMMARY | 2024-12-30 09:58 | XMS_ITS | Encounter Summary ---
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 [address] [place] [address] Phone: tel: fax: [facility] Referral ID Status Reason Start Date Expiration Date Visits Re quested Visits Authorized [id number] Closed 12/27/2024 03/29/2026 1 1 Encounter Details Date Type Department Care Team (Latest Contact Info) Description 12/30/2024 9:58 AM CDT - 12/30/2024 1:24 PM CDT Hospital Encounter Department of Radiology, [facility], in [place], [place] [address] [place] [address] Drea Means APRN, C.N.P., D.N.P. [address] [place] [address] Malignant Neoplasm Of Pancreas Adenocarcinoma (HCC); Mass [...] Recorded In the past 12 months has [employer] gas, oil, or water [employer] threatened to shut off services in your [...] your living situation today? I have a [facility] place to live 12/23/2024 Sex and Gender Information Value Date Recorded Sex Assigned at Male 09/10/2023 7:48 AM PATIENT SERVICE REPRESENTATIVE Legal Sex Male 10:11 PM PATIENT SERVICE REPRESENTATIVE Gender Identity Male 09/10/2023 7:48 AM PATIENT SERVICE REPRESENTATIVE Sexual Orientation Straight 09/10/2023 7: 48 AM PATIENT SERVICE REPRESENTATIVE documented as of this encounter Last Filed [...] related to the procedure, please contact the [facility] steam hammer operator ([phone]) and ask to be connected to the non-vascular interventional radiology fellow hospital liaison * Attachments The following attachments cannot be [...] CDT Lab Department of Infusion Therapy in [place], [place] [address] [place] [phone] Skip Amaya M.D., Ph.D. [address] [place] [phone] 02/04/2025 8:20 AM CDT Office Visit Department of Oncology in [address] [phone] Jag Frye, KSAH, C.N.P., D.N.P. [address] [place] [phone] 02/04/2025 2:00 PM CDT Infusion Department of Oncology in [address] [address] Skip Amaya M.D., Ph.D. [address] [place] [phone] 02/08/2025 2:15 PM CDT Clinical Communication Virtual Review in [place], [place] [address] [place] [address] 02/09/2025 9:30 AM CDT Telemedicine Department of Oncology in [address] [phone] Jesica Wasserman M.B., B.Ch. [address] [place] [phone] Cecily Nash L.I.C.SSusu. [address] [place] [address] 02/10/2025 12:00 PM CDT Lab Department of Infusion Therapy in [address] [phone] Skip Amaya M.D., Ph.D. [address] [place] [phone] 02/10/2025 2:30 PM CDT Office Visit Department of Oncology in [address] [phone] Rosenda Garza MPAS, P.A.-C. [address] [place] [phone] 02/11/2025 8:00 AM CDT Infusion Department of Oncology in [address] [address] Skip Amaya M.D., Ph.D. [address] [place] [phone] 02/23/2025 2:15 PM CDT Clinical Communication Virtual Review in [address] [phone] 02/25/2025 8:30 AM CDT Lab Department of Oncology in [address] [phone] Skip Amaya M.D., Ph.D. [address] [place] [phone] 02/25/2025 10:40 AM CDT Office Visit Department of Oncology in [address] [phone] Sandy Judge, KASH, C.N.P., M.S. [address] [place] [phone] 02/25/2025 11:30 AM CDT Infusion Department of Oncology in [place], [place] [address] [place] [phone] Skip Amaya M.D., Ph.D. [address] [place] [phone] 03/04/2025 6:00 AM CDT Lab Department of Infusion Therapy in [place], [place] [address] [place] [phone] Skip Amaya M.D., Ph.D. [address] [place] [phone] 03/04/2025 8:10 AM CDT Office Visit Department of Oncology in [place], [place] [address] [place] [phone] Jie Shook P.A.-C. [address] [place] [phone] 03/04/2025 9:30 AM CDT Infusion Department of Oncology in [place], [place] [address] [place] [phone] Skip Amaya M.D., Ph.D. [address] [place] [phone] 03/10/2025 2:15 PM CDT Clinical Communication Virtual Review in [place], [place] [address] [place] [address] 03/11/2025 6:00 AM CDT Lab Department of Laboratory Medicine and Pathology, [facility], in [place], [place] [address] [place] [phone] Skip Amaya M.D., Ph.D. [address] [place] [phone] 03/11/2025 7:20 AM CDT Office Visit Department of Oncology in [address] [phone] Bipin Leal P.A.-C., M.S. [address] [place] [phone] 03/11/2025 8:00 AM CDT Infusion Department of Oncology in [address] [address] Skip Amaya M.D., Ph.D. [address] [place] [phone] 03/24/2025 11:20 AM CDT Lab Department of Infusion Therapy in [address] [phone] Skip Amaya M.D., Ph.D. [address] [place] [phone] 03/24/2025 1:30 PM CDT Office Visit Department of Oncology in [address] [phone] Skip Amaya M.D., Ph.D. [address] [place] [phone] 03/25/2025 7:00 AM CDT Infusion Department of Oncology in [address] [phone] Skip Amaya M.D., Ph.D. [address] [place] [phone] 03/29/2025 2:30 PM CDT Clinical Communication Virtual Review in [address] [phone] 04/01/2025 6:00 AM CDT Lab Department of Infusion Therapy in [place], [place] [address] [place] [phone] Skip Amaya M.D., Ph.D. [address] [place] [phone] 04/01/2025 8:20 AM CDT Office Visit Department of Oncology in [address] [phone] Precious Hill M.D., Ph.D. [address] [place] [phone] 04/01/2025 9:00 AM CDT Infusion Department of Oncology in [address] [phone] Skip Amaya M.D., Ph.D. [address] [place] [phone] 04/07/2025 11:00 AM CDT Lab Department of Infusion Therapy in [address] [phone] Skip Amaya M.D., Ph.D. [address] [place] [phone] 04/07/2025 1:20 PM CDT Office Visit Department of Oncology in [address] [phone] Sandy Judge APRN, C.N.P., M.S. [address] [place] [phone] 04/08/2025 7:00 AM CDT Infusion Department of Oncology in [address] [phone] Skip Amaya M.D., Ph.D. [address] [place] [phone] 04/21/2025 7:15 AM CDT Clinical Communication Virtual Review in [place], [place] [address] [place] [phone] 04/22/2025 7:20 AM CDT Lab Department of Infusion Therapy in [address] [phone] Skip Amaya M.D., Ph.D. [address] [place] [phone] 04/22/2025 9:20 AM CDT Office Visit Department of Oncology in [address] [phone] Sandy Judge APRN, C.N.P., M.S. [address] [place] [phone] 04/22/2025 10:30 AM CDT Infusion Department of Oncology in [address] [phone] Skip Amaya M.D., Ph.D. [address] [place] [phone] documented as of this encounter Goals Goal [...] IMPRESSION: Ultrasound-guided hepatic mass core biopsy. NR [facility] Clary KASH, C.N.P., D.N.P. IMG US PROCEDURES Final Result * (ABNORMAL) Cytology Fine Needle Aspiration (including core biopsies) (12/30/2024 11:14 AM CDT) (A) 3:04 PM CDT DTL Disclaimer This test was developed and its performance characteristics determined by [facility] in a manner consistent with CLIA [...] will be performed on block A2 at [employer] [employer], [place], [place] Signed by Mariana LindsayB.S., Ph.D. 01/24/2025 4:04 PM The following test(s) will be performed in the [facility] at the request of Jesica Wasserman M.B., [facility]: MMR Protein, IHC Only, Tumor (IHC) Results [...] PATH ORD ERABLES Edited Result - Final [facility] [address] [place] [address], [facility] [address] [place] [address] documented in this encounter Visit Diagnoses Diagnosis [...] IV Push 1121 (Given - Provid er: Mallika Lund, R.N.) fentaNYL injection 25 mcg (Sublimaze) 25 [...] doses 1122 (Given - Provid er: Mallika Lund, R.N.) flumazeniL injection 0.2 mg (Romazicon) 0.2 [...] documented as of this encounter Care Teams Welcome Desk Agent Relationship Specialty Start Date End Date Elsewhere, Pcp PCP - General Internal Medicine 09/09/23 documented as of this encounter
--- OUTSIDE RECORDS SUMMARY | 2025-01-05 14:00 | XMS_ITS | Encounter Summary ---
Author Organization [facility] Address [address] [place] [address] Care Team Providers Care Salesperson Furs Name Role Phone Elsewhere, Pcp Primary Care Provider Unavailabl e Reason for Referral * Outpatient (Routine) - Closed Specialty Diagnoses / Procedures Referred By Contac t Referred To Contact Radiology Diagnoses Depression Major One Episode Moderate (HCC) Hypertensive Chronic Kidney Disease With Stage 1 Through Stage 4 Chronic Kidney Disease, Or Unspecified Chronic Kidney Disease Malignant Neoplasm Of Pancreas Tail (HCC) Ventricular Tachycardia Unspecified (HCC) Chronic Kidney Disease (CKD), Stage 3a Glomerular Filtration Rate (GFR) 45 To 59 (HCC) Mass Pancreas Secondary Malignant Neoplasm Liver (HCC) 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 [address] [place] [address] Phone: tel: fax: [facility] Region Referral ID Status Reason Start Date Expiration Date Visits Re quested Visits Authorized [id number] Closed 01/05/2025 04/07/2026 1 1 * Outpatient (Routine) - Closed Specialty Diagnoses / Procedures Referred By Contac t Referred To Contact Medical Oncology / Oncology Diagnoses Depression Major One Episode Moderate (HCC) Hypertensive Chronic Kidney Disease With Stage 1 Through Stage 4 Chronic Kidney Disease, Or Unspecified Chronic Kidney Disease Malignant Neoplasm Of Pancreas Tail (HCC) Ventricular Tachycardia Unspecified (HCC) Chronic Kidney Disease (CKD), Stage 3a Glomerular Filtration Rate (GFR) 45 To 59 (HCC) Mass Pancreas Jesica Wasserman M.B., B.Ch. [address] [place] [phone] Phone: tel: fax: [facility] Referral ID Status Reason Start Date Expiration Date Visits Re quested Visits Authorized [id number] Closed 01/05/2025 07/07/2026 1 1 Reason for Visit * Reason Comments New Patient Pancreatic Cancer right side pain 1/10 more with cough ing * Outpatient (Routine) - Closed Specialty Diagnoses / Procedures Referred By Contomid t Referred To Contact Medical Oncology / Oncology Diagnoses Mass Pancreas Drea Means APRN, C.N.P., D.N.P. [address] [place] [phone] Phone: tel: fax: [facility] Referral ID Status Reason Start Date Expiration Date Visits Re quested Visits Authorized [id number] Closed 12/29/2024 06/30/2026 1 1 Encounter Details Date Type Department Care Team (Latest Contact Info) Description 01/05/2025 2:00 PM CDT Comprehensive Visit [place] [address] Jesica Wasserman M.B., B.Ch. 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 Alcohol Use Standard Drinks/Week Comments Not Currently 1 (1 standard drink = 0.6 oz pur e alcohol) 0-1 drink per week [facility] Utilities Answer Date Recorded In the past 12 months has e [employer], gas, oil, or water company threatened to [...] living situation today? I have a [facility] place to live 12/23/2024 Education Answer Date Recorded What is the highest level of school you have completed or the highest degree you have received? 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, KELLEE) 01/05/2025 Sex and Gender Information Value Date Recorded Sex Assigned at Male 09/10/2023 7:48 AM [employer] Legal Sex Male 10:11 PM [employer] Gender Identity Male 09/10/2023 7:48 AM [employer] Sexual Orientation Straight 09/10/2023 7: 48 AM [employer] documented as of this encounter Last Filed Vital Signs Vital Sign Reading Time Taken Comments Blood Pressure 118/70 01/05/2025 1:41 PM CDT Pulse 88 01/05/2025 1:41 PM CDT Temperature 35.8 C (96.4 F) 01/05/2025 1:41 PM CDT Respiratory Rate 20 01/05/2025 1:41 PM CDT Oxygen Saturation 95% 01/05/2025 1:41 PM CDT Inhaled Oxygen Concentration - - Weight 94.8 kg (208 lb 15.9 oz) 01/05/2025 1:41 PM CDT Height 181.6 cm (5' 11.5) 01/05/2025 1:41 PM CD T Body Mass Index 28.75 01/05/2025 1:41 PM CDT documented in this encounter Consult Notes * Jesica Wasserman M.B., B.Ch. - 01/05/2025 2:00 PM CDT Images from the original note were not included. ONCOLOGY CONSULT NOTE Primary Care Physician ELSEWHERE, [facility] Oncologist Mariana Castro, B.Ch. Reason for Consult Noel Mata is a 69 y.o. 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 CBC was unremarkable. BMP showed creatinine at 1.5. LFTs normal except alkaline phosphatase [place] 189. CA 19- 9 [place] [address]. US abdomen showed hepatic steatosis with a heterogeneous lesion within the right lobe of the liver measuring up to 5.[address] abdomen and pelvis. CT abdomen and pelvis with IV contrast showed low-density lesion in pancreatic tail 4.5 cm in greatest dimension somewhat cystic in appearance concerning for adenocarcinoma, ill-defined low-density lesion in hepatic segment 6 4 cm likely metastasis, additional low-density lesion in wall of the stomach, few indeterminate nonpathologic enlarged upper abdominal lymph nodes. 12/23/2024 CT chest with IV contrast showed minimally increased indeterminate RLL pulmonary nodule 9 mm previously 8 mm, no lymphadenopathy or suspicious osseous lesions, pancreatic tail cystic mass and suspected gastric hepatic metastasis better evaluated with a CT abdomen. 12/28/2024 cell free DNA mutation of KRAS 12, 13, 61, 146 in peripheral blood was positive. CT pancreas angiogram triple phase showed 4.5 cm hypoenhancing infiltrative mass in the tail of the pancreas, 5.1 cm cystic bilobed lesion upstream from the mass abutting medial portion of the spleen and descending colon representing pseudocyst, cystic lesion in posterior wall of the stomach 1.8 cm probably pseudocyst, 4 cm lobulated mass in the right lobe of the liver consistent with metastasis, tiny adjacent low-attenuation lesion in the inferior right lobe of liver, 2 cm low-attenuation lesion in left lobe along falciform ligament could be metastasis versus focal area of steatosis, diffuse hepatic steatosis, several suspicious peripancreatic and periportal lymph nodes up to 1.3 cm, prominent gastrohepatic ligament lymph node measuring 1 cm. 12/30/2024 US-guided biopsy from liver mass was obtained, and pathology showed adenocarcinoma likely pancreaticobiliary versus upper GI origin. Interval History The patient is presenting today to establish care with medical oncologist regarding newly diagnosedmetastatic adenocarcinoma of the pancreas. Review of Systems Ten point review of systems was reviewed today 01/05/25 and was negative, except as specified in interval history. History Review The following portions of the patient's history were reviewed and updated on 01/05/25 as appropriate: allergies, current medications, family history, medical history, social history, surgical history, and problem list. Vital Signs Vitals: 01/05/25 1341 BP: 118/70 Patient Position: Sitting Pulse: 88 Temp: (!) 35.8 ??C Resp: 20 Height: 181.6 cm Weight: 94.8 kg SpO2: 95% TempSrc: Temporal Performance Status ECOG score: 0 Physical Exam Constitutional Appearance: Normal appearance. HENT Head: Normocephalic. Right Ear: Tympanic membrane normal. Nose: Nose normal. Mouth/Throat: Mouth: Mucous membranes are moist. Eyes General: No scleral icterus. Pupils: Pupils are equal, round, and reactive to light. Cardiovascular Rate and Rhythm: Normal rate and regular rhythm. Pulses: Normal pulses. Pulmonary Effort: Pulmonary effort is normal. Abdominal General: Abdomen is flat. There is no distension. Musculoskeletal General: No swelling. Normal range of motion. Cervical back: Normal range of motion. No rigidity. Skin Capillary Refill: Capillary refill takes less than 2 seconds. Neurological General: No focal deficit present. Mental Status: He is alert and oriented to person, place, and time. Cranial Nerves: No cranial nerve deficit. Psychiatric Mood and Affect: Mood normal. Behavior: Behavior normal. Laboratory Data Reviewed 01/05/25 Radiology Data Reviewed 01/05/25 Assessment and Plan Noel Mata is a 69 y.o. male with stage IV metastatic adenocarcinoma of the pancreas, with metastasis to abdominal lymph nodes and liver The patient is a potential excellent candidate for PRISM-1 trial and [facility]-102 trials in [place]. He lives in [place], [place]. Excellent performance status and family support. I will refer him to our colleagues at [employer] to evaluate for either of those two trials. Meanwhile we will place port.I also have sent him refill for oxycodone. If he is unable to enroll, I will treat him with standard modified FOLFIRINOX. Advance Care Planning Health Care Power of Leveler: Discussed with Noel Mata 2. Treatment Goals: Palliative 3. Additional lines of Therapy: Chemotherapy 4. Prognosis: Median Survival: Months to years 5. Patient Personal Goals and understanding of illness: Improve survival and maintain quality of life Patient Education No apparent learning barriers were identified. Explained diagnosis and treatment plan; patient expressed understanding of the content and agreement with plan. Patient was encouraged to keep us informed in case they develop any new symptoms in the interval period. Administrative and Billing I personally spent more than 60 minutes in care of the patient today. This time includes more than 50% both face to face and non-face to face time. Jesica Wasserman [facility] documented in this encounter Miscellaneous Notes * Addendum Note - Angela Tubbs R.N. - 01/05/2025 2:00 PM CDTAddended by: ANGELA TUBBS on: 01/05/2025 02:41 PM Modules accepted: Orders documented in this encounter Plan of Treatment Upcoming Encounters Date Type Department Care Team (Latest Contact Info) Description 02/04/2025 7:00 AM CDT Lab Department of Infusion Therapy in [place], [place] [address] [place] [phone] Skip Amaya M.D., Ph.D. [address] [place] [phone] 02/04/2025 8:20 AM CDT Office Visit Department of Oncology in [place], [place] [address] [place] [phone] Jag Frye, KASH, C.N.P., D.N.P. [address] [place] [phone] 02/04/2025 2:00 PM CDT Infusion Department of Oncology in [place], [place] [address] [place] [phone] Skip Amaya M.D., Ph.D. [address] [place] [phone] 02/08/2025 2:15 PM CDT Clinical Communication Virtual Review in [place], [place] 200 [place] [phone] 02/09/2025 9:30 AM CDT Telemedicine Department of Oncology in [address] [phone] Jesica Wasserman M.B., B.Ch. [address] [place] [phone] Cecily Nash L.I.C.S.W. [address] [place] [phone] 02/10/2025 12:00 PM CDT Lab Department of Infusion Therapy in [place], [place] [address] [place] [phone] Skip Amaya M.D., Ph.D. [address] [place] [phone] 02/10/2025 2:30 PM CDT Office Visit Department of Oncology in [place], [place] [address] [place] [phone] Rosenda Garza MPAS, P.A.-C. [address] [place] [phone] 02/11/2025 8:00 AM CDT Infusion Department of Oncology in [place], [place] [address] [place] [phone] Skip Amaya M.D., Ph.D. [address] [place] [phone] 02/23/2025 2:15 PM CDT Clinical Communication Virtual Review in [place], [place] 200 [place] [phone] 02/25/2025 8:30 AM CDT Lab Department of Oncology in [place], [place] [address] [place] [phone] Skip Amaya M.D., Ph.D. [address] [place] [phone] 02/25/2025 10:40 AM CDT Office Visit Department of Oncology in [place], [place] [address] [place] [phone] Sandy Judge, KASH, C.N.P., M.S. [address] [place] [phone] 02/25/2025 11:30 AM CDT Infusion Department of Oncology in [place], [place] [address] [place] [phone] Skip Amaya M.D., Ph.D. [address] [place] [phone] 03/04/2025 6:00 AM CDT Lab Department of Infusion Therapy in [place], [place] [address] [place] [phone] Skip Amaya M.D., Ph.D. [address] [place] [phone] 03/04/2025 8:10 AM CDT Office Visit Department of Oncology in [place], [place] [address] [place] [phone] Jie Shook P.A.-C. [address] [place] [phone] 03/04/2025 9:30 AM CDT Infusion Department of Oncology in [place], [place] [address] [place] [phone] Skip Amaya M.D., Ph.D. [address] [place] [phone] 03/10/2025 2:15 PM CDT Clinical Communication Virtual Review in [place], [place] 200 [place] [phone] 03/11/2025 6:00 AM CDT Lab Department of Laboratory Medicine and Pathology, [facility], in [address] [phone] Skip Amaya M.D., Ph.D. [address] [place] [phone] 03/11/2025 7:20 AM CDT Office Visit Department of Oncology in [address] [phone] Bipin Leal P.A.-C., M.S. [address] [place] [phone] 03/11/2025 8:00 AM CDT Infusion Department of Oncology in [place], [place] [address] [place] [phone] Skip Amaya M.D., Ph.D. [address] [place] [phone] 03/24/2025 11:20 AM CDT Lab Department of Infusion Therapy in [place], [place] [address] [place] [phone] Skip Amaya M.D., Ph.D. [address] [place] [phone] 03/24/2025 1:30 PM CDT Office Visit Department of Oncology in [address] [phone] Skip Amaya M.D., Ph.D. [address] [place] [phone] 03/25/2025 7:00 AM CDT Infusion Department of Oncology in [place], [place] [address] [place] [phone] Skip Amaya M.D., Ph.D. [address] [place] [phone] 03/29/2025 2:30 PM CDT Clinical Communication Virtual Review in [place], [place] 200 [place] [phone] 04/01/2025 6:00 AM CDT Lab Department of Infusion Therapy in [place], [place] [address] [place] [phone] Skip Amaya M.D., Ph.D. [address] [place] [phone] 04/01/2025 8:20 AM CDT Office Visit Department of Oncology in [address] [phone] Precious Hill M.D., Ph.D. [address] [place] [phone] 04/01/2025 9:00 AM CDT Infusion Department of Oncology in [place], [place] [address] [place] [phone] Skip Amaya M.D., Ph.D. [address] [place] [phone] 04/07/2025 11:00 AM CDT Lab Department of Infusion Therapy in [place], [place] [address] [place] [phone] Skip Amaya M.D., Ph.D. [address] [place] [phone] 04/07/2025 1:20 PM CDT Office Visit Department of Oncology in [place], [place] [address] [place] [phone] Sandy Judge, KASH, C.N.P., M.S. [address] [place] [phone] 04/08/2025 7:00 AM CDT Infusion Department of Oncology in [place], [place] [address] [place] [phone] Skip Amaya M.D., Ph.D. [address] [place] [phone] 04/21/2025 7:15 AM CDT Clinical Communication Virtual Review in [place], [place] 200 [place] [phone] 04/22/2025 7:20 AM CDT Lab Department of Infusion Therapy in [place], [place] [address] [place] [phone] Skip Amaya M.D., Ph.D. [address] [place] [phone] 04/22/2025 9:20 AM CDT Office Visit Department of Oncology in [place], [place] [address] [place] [phone] Sandy Judge APRN, C.N.P., M.S. [address] [place] [phone] 04/22/2025 10:30 AM CDT Infusion Department of Oncology in [place], [place] [address] [place] [phone] Skip Amaya M.D., Ph.D. [address] [place] [phone] Scheduled Referrals Name Type Priority Associated Diagnoses Orde r Schedule Oncology - Medical, GI consult (clinic) Outpatient Referral Routine Depression Major One Episode Moderate (HCC) Hypertensive Chronic Kidney Disease With Stage 1 Through Stage 4 Chronic Kidney Disease, Or Unspecified Chronic Kidney Disease Malignant Neoplasm Of Pancreas Tail (HCC) Ventricular Tachycardia Unspecified (HCC) Chronic Kidney Disease (CKD), Stage 3a Glomerular Filtration Rate (GFR) 45 To 59 (HCC) Mass Pancreas Expected: 01/05/2025, Expires: 04/07/2026 documented as of this encounter Goals Goal Patient Goal Type Associated Problems Recent Progress Patient-Stated? Author Autogenerat ed Goal Care Plan Autogenerated Problem No Hedy Lees, RJustynN. documented as of this encounter Procedures Procedure Name Priority Date/Time Associated Diagnosis Comments MMR PROTEIN, IHC ONLY, TUMOR Routine 12/30/2024 11:14 AM CDT Depression Major One Episode Moderate (HCC) Hypertensive Chronic Kidney Disease With Stage 1 Through Stage 4 Chronic Kidney Disease, Or Unspecified Chronic Kidney Disease Malignant Neoplasm Of Pancreas Tail (HCC) Ventricular Tachycardia Unspecified (HCC) Chronic Kidney Disease (CKD), Stage 3a Glomerular Filtration Rate (GFR) 45 To 59 (HCC) Mass Pancreas documented in this encounter Results * IR Implanted Vascular Access Device Placement (01/17/2025 12:41 PM CDT) Anatomical Region Laterality Modality Chest, Pelvis, Abdomen, Vasc ular Interventional RST LOS, Vascular Interventional ARZ LOS, Vascular Interventional FLA LOS N/A X-Ray Angiography Impressions 01/18/2025 1:26 AM CDT Insertion of right internal jugular vein subcutaneous PowerPort with non-valved open-ended catheter tip. Of note, this port requires hep-locking with 100 u/mL heparin after each use. Narrative 01/18/2025 1:26 AM CDT EXAM: IR IMPLANTED VASCULAR ACCESS DEVICE PLACEMENT HISTORY: 69-year-old male with pancreatic cancer, requesting port COMPARISON: CT chest from 12/23/2024 PROCEDURAL PERSONNEL: Attending: Jony Avilez PREPROCEDURE: Patient seen, evaluated, and history reviewed. Discussed risks, benefits, alternatives for procedure, and obtained informed consent. Patient understood the information and questions answered. Immediately prior to starting the procedure, in the presence of the assisting personnel, procedural pause was conducted to verify correct patient identity and verification of procedure to be performed, and as applicable, correct side and site, correct patient position, availability of implants, special equipment, or special requirements, and all image and specimen identification data. The roles and responsibilities of care team members were discussed. The medication list was reviewed and there are no changes to current medications. Patient education provided by a care truck driver teamster. Patient was ready to learn with no apparent learning barriers were identified. Post-procedure care explained; patient expressed understanding of the content. PROCEDURE DETAILS: Sedation: Moderate sedation level was achieved using intravenous administration of sedation medication, documented in the medication record. The patient was continuously monitored with oxygen saturation, heart rate, ECG and blood pressure throughout administration of sedation and duration of the procedure. Total intra-procedural sedation monitoring time included below. Sedation time: 9 minutes Estimated Blood Loss: Less than 10 mL. TECHNIQUE: Imaging guidance: Ultrasound and fluoroscopy with permanent image storage Access Vessel: Right Internal Jugular Vein Venogram: No Venous access device: 8 Chinese single lumen PowerPort with non-valved open-ended catheter tip. Of note, this is not a Groshong catheter. Ultrasound was used to evaluate the target vessel prior to accessing it. The length of the target vessel was evaluated for internal echoes, stenosis and patency. The subcutaneous tissues were infiltrated with 1% lidocaine. A 21-guage micropuncture set was used to access the vessel under ultrasound guidance. A permanent image was archived for the patient record. A small incision was made in the subcutaneous tissues of the chest, and a pocket was created for the implantable port. The port was placed into the pocket. Using blunt dissection, a tunnel was created from the pocket to the venotomy site, and the catheter was pulled across the tunnel. The catheter was cut to an appropriate length, and after a peel-away sheath was placed over the wire at the venotomy site, the catheter was advanced through the peel-away sheath which was then removed. The chest incision was closed using resorbable suture and tissue adhesive. The neck site was closed with tissue adhesive. The port was heparin-locked with 100 u/mL heparin. Intraprocedural or immediate post-procedural complications: None FINDINGS: Sonographic pre-procedural evaluation showed patent access vessel and no thrombosis. Catheter tip location: A final spot fluoroscopic image was obtained and stored demonstrating the catheter tip to be located near the superior cavoatrial junction. Additional observations: N/A PLAN: The port may be used immediately. Procedure Note Jony Avilez M.D. - 01/18/2025 EXAM: IR IMPLANTED VASCULAR ACCESS DEVICE PLACEMENT HISTORY: 69-year-old male with pancreatic cancer, requesting port COMPARISON: CT chest from 12/23/2024 PROCEDURAL PERSONNEL: Attending: Jony Avilez PREPROCEDURE: Patient seen, evaluated, and history reviewed. Discussedrisks, benefits, alternatives for procedure, and obtained informedconsent. Patient understood the information and questions answered.Immediately prior to starting the procedure, in the presence of the assisting personnel, procedural pause was conductedto verify correct patient identity and verification of procedure to beperformed, and as applicable, correct side and site, correct patientposition, availability of implants, special equipment, or special requirements, and all image and specimenidentification data. The roles and responsibilities of care team memberswere discussed. The medication list was reviewed and there are no changesto current medications. Patient education provided by a care truck driver teamster. Patient was ready to learn withno apparent learning barriers were identified. Post-procedure careexplained; patient expressed understanding of the content. PROCEDURE DETAILS: Sedation: Moderate sedation level was achieved using intravenousadministration of sedation medication, documented in the medicationrecord. The patient was continuously monitored with oxygen saturation,heart rate, ECG and blood pressure throughout administration of sedation and duration of the procedure. Totalintra-procedural sedation monitoring time included below. Sedation time: 9 minutes Estimated Blood Loss: Less than 10 mL. TECHNIQUE: Imaging guidance: Ultrasound and fluoroscopy with permanent imagestorage Access Vessel: Right Internal Jugular Vein Venogram: No Venous access device: 8 Chinese single lumen PowerPort with bwi-mbsktupfrf-klsms catheter tip. Of note, this is not a Groshong catheter. Ultrasound was used to evaluate the target vessel prior to accessing it.The length of the target vessel was evaluated for internal echoes,stenosis and patency. The subcutaneous tissues were infiltrated with 1%lidocaine. A 21-guage micropuncture set was used to access the vessel under ultrasound guidance. A permanent imagewas archived for the patient record. A small incision was made in thesubcutaneous tissues of the chest, and a pocket was created for theimplantable port. The port was placed into the pocket. Using blunt dissection, a tunnel was created from thepocket to the venotomy site, and the catheter was pulled across thetunnel. The catheter was cut to an appropriate length, and after apeel-away sheath was placed over the wire at the venotomy site, the catheter was advanced through the peel-away sheathwhich was then removed. The chest incision was closed using resorbablesuture and tissue adhesive. The neck site was closed with tissue adhesive.The port was heparin-locked with 100 u/mL heparin. Intraprocedural or immediate post-procedural complications: None FINDINGS: Sonographic pre-procedural evaluation showed patent access vessel and nothrombosis. Catheter tip location: A final spot fluoroscopic image was obtained andstored demonstrating the catheter tip to be located near the superiorcavoatrial junction. Additional observations: N/A PLAN: The port may be used immediately. IMPRESSION: Insertion of right internal jugular vein subcutaneous PowerPort withnon-valved open-ended catheter tip. Of note, this port requireshep-locking with 100 u/mL heparin after each use. Jesica Peña B.Ch. IMG IR PROCEDURES Final R esult * Mismatch Repair (MMR) Protein Immunohistochemistry Only, Tumor (12/30/2024 11:14 AM CDT) MLH1 IHC Performed 5 4:25 PM CDT DTL MSH2 IHC Performed 5 4:25 PM CDT DTL MSH6 IHC Performed 5 4:25 PM CDT DTL PMS2 IHC Performed 5 4:25 PM CDT DTL Result Provided diagnosis: adenocarcinoma involving liver, primary unknown IHC: Normal expression of MLH1, MSH2, MSH6, and PMS2 5 4:25 PM CDT DTL Specimen Tissue, Tumor 5 4:25 PM CDT DTL Tissue ID [id number] 5 4:25 PM CDT DTL Released By Annemarie Dugan M.D., Ph.D. 4:25 PM CDT DTL Result Summary INTACT PROTEIN EXPRESSION 4:25 PM CDT DTL Interpretation These results suggest the presence of normal DNA mismatch repair function within the tumor. However, these results do not completely rule out the possibility of defective DNA mismatch repair within the tumor because approximately 5% of cases with defective mismatch repair do not show absence of protein expression by IHC (Mod Pathol. 2020 November;33(5):871-879 (PMID: 17935797)). THERAPEUTIC IMPLICATIONS Current data suggest that in advanced stage solid tumors, targeted immunotherapies such as anti-PD-1 therapies are more likely to be effective in mismatch repair-deficient tumors than in mismatch repair-proficient tumors (Science. 2017 Jan 31;357(2260):409- 413 (PMID 17619580); J Clin Oncol. 2018 Jul 20:[id number] (PMID 67659351)). For interpretation of therapeutic implications of these results, consider MSI analysis to confirm GOYO/MSI-L status in this tumor due to the possibility of discordance between IHC and MSI results. HEREDITARY IMPLICATIONS These results do not rule out a diagnosis of Cates syndrome (LS) since the majority of information available on the ability of MSI/IHC testing to identify individuals with LS relates to testing that is performed on colon cancer. Although colon tumors are the preferred specimen for assessing an individual's risk, testing of other tumors typically associated with LS (e.g. endometrial, sebaceous carcinoma, gastric, or upper tract urothelial carcinoma) may be useful if a colon tumor is unavailable. This additional testing may provide more definitive evidence regarding whether or not this individual or family is likely to have an inherited colon cancer syndrome due to defective DNA mismatch repair (Cates syndrome). These results also do not rule out the possibility that this individual's tumor is due to an inherited defect in another gene not involved in mismatch repair. A significant fraction of clinically defined LS cases (30% or more) do not have defective DNA mismatch repair as the underlying genetic basis of their disease. Additionally, these results do not rule out the possibility that this tumor could represent a sporadic occurrence. A genetic consultation may be of benefit. ADDITIONAL INFORMATION Consideration of these results, in light of other clinical information, may aid in clinical management decisions for this patient. These data should be interpreted in the context of the histopathologic findings. A surgical pathology consult may be ordered separately. 5 4:25 PM CDT DTL Comment: ----ADDITIONAL INFORMATION---- Immunohistochemical staining (IHC) is used to determine the presence or absence of protein expression for one or more of the following: MLH1, MSH2, MSH6, and PMS2. Lymphocytes and normal epithelium exhibit strong nuclear staining to serve as positive internal controls for staining of these proteins. MLH-1: specimen for MLH-1 immunohistochemistry studies (anti-MLH-1 clone ES05, [employer], [place], [place]; Iglesia Optiview + Optiview AMP Detection) MSH-2 : specimen for MSH-2 immunohistochemistry studies (anti-MSH-2 clone FE11, [employer], [place], [place]; Leica Bello Polymer Refine Detection) MSH-6: specimen for MSH-6 immunohistochemistry studies (anti-MSH-6 clone SP93, [employer], [place], [place]; Iglesia Optiview Detection) PMS-2: specimen for PMS-2 immunohistochemistry studies (anti-PMS-2 clone EP51, [employer], [place], [place]; Iglesia Optiview + Optiview AMP Detection) Fixation:This test has been validated for nondecalcified paraffin-embedded tissue specimens fixed in 10% neutral-buffered formalin. Recommended fixation time is between 6 to 48 hours. This assay has not been validated on tissues subjected to the decalcification process or use of alternative fixatives Test results should be interpreted in the context of clinical findings, family history, and other laboratory data. If results obtained do not match other clinical or laboratory findings, please contact the laboratory for possible interpretation. Misinterpretation of results may occur if the information provided is inaccurate or incomplete. This test was developed and its performance characteristics determined by [facility] in a manner consistent with CLIA requirements. This test has not been cleared or approved by the U.S. Food and Drug Administration. Tissue (Liver) 12/30/2024 11 :14 AM CDT 01/10/2025 11:17 AM CDT Jesica Peña B.Ch. 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) Hypertensive Chronic Kidney Disease With Stage 1 Through Stage 4 Chronic Kidney Disease, Or Unspecified Chronic Kidney Disease Ventricular Tachycardia Unspecified (HCC) Chronic Kidney Disease (CKD), Stage 3a Glomerular Filtration Rate (GFR) 45 To 59 (HCC) Mass Pancreas Secondary Malignant Neoplasm Liver (HCC) 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) Depression Major One Episode Moderate (HCC) Hypertensive Chronic Kidney Disease With Stage 1 Through Stage 4 Chronic Kidney Disease, Or Unspecified Chronic Kidney Disease Malignant Neoplasm Of Pancreas Tail (HCC) Ventricular Tachycardia Unspecified (HCC) Chronic Kidney Disease (CKD), Stage 3a Glomerular Filtration Rate (GFR) 45 To 59 (HCC) Mass Pancreas Secondary Malignant Neoplasm Liver (HCC) 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
--- OUTSIDE RECORDS SUMMARY | 2025-01-12 09:30 | XMS_ITS | Encounter Summary ---
Author Organization [facility] Address [address] [place] [address] Care Team Providers Care Circular Sawyer Stone Name Role Phone Elsewhere, Pcp Primary Care Provider Unavailabl e Reason for Referral * Behavioral Health (Routine) - Authorized Specialty Diagnoses / Procedures Referred By Meeta carlisle Referred To Contact Psychiatry / Psychiatry and Psychology Cecily Nash, L.I.C.S.W. [address] [place] [address] Phone: tel: fax: [facility] Referral ID Status Reason Start Date Expiration Date V isits Requested Visits Authorized [id number] Authorized 01/13/2025 07/15/2026 1 1 Reason for Visit * Behavioral Health (Routine) - Closed Specialty Diagnoses / Procedures Referred By Contac t Referred To Contact Psychiatry / Psychiatry and Psychology Diagnoses Malignant Neoplasm Of Pancreas Tail (HCC) Depression Major One Episode Moderate (HCC) Julitete Martinez M.S.Aster, L.I.C.S.W. [address] [place] [address] Phone: tel: [facility] Referral ID Status Reason Start Date Expiration Date Visits Re quested Visits Authorized [id number] Closed 01/10/2025 07/12/2026 1 1 Encounter Details Date Type Department Care Team (Late st Contact Info) Description 01/12/2025 9:30 AM CDT Telemedicine Department of Oncology in [place], [place] [address] [place] [address] Jesica Wasserman M.B., B.Ch. [address] [place] [phone] Cecily Nash L.I.C.S.W. [address] [place] [phone] Malignant Neoplasm Of Pancreas Tail (HCC); Depression Major One Episode Moderate (HCC) Social History Tobacco Use Types Packs/Day Years Used Date Smoking Tobacco: Never Passive Smoke Exposure: Past Smokeless Tobacco: Never Passive Exposure Comments: ildhood exposure. Alcohol Use Standard Drinks/Week Comments Not Currently 1 (1 standard drink = 0.6 oz pur e alcohol) 0-1 drink per week [facility] Utilities Answer Date Recorded In the past 12 months has Quarterly electric, gas, oil, or water Feidee threatened to shut off services in your [...] living situation today? I have a [facility] to live 12/23/2024 Education Answer Date Recorded What is the highest level of school you have completed or the highest degree you have received? Master's degree (e.g., MA, MS, Katelyn, MEd, CERTIFIED EXECUTIVE CHEF, KELLEE) 01/05/2025 Sex and Gender Information Value Date Recorded Sex Assigned at Male 09/10/2023 7:48 AM [employer]CH[employer] Legal Sex Male 10:11 PM [employer]CH[employer] Gender Identity Male 09/10/2023 7:48 AM [employer]ER [employer] MERCH[employer]ER Sexual Orientation Straight 09/10/2023 7: 48 AM CON[employer]ER [employer] MERCHANDISER documented as of this encounter Progress Notes * Cecily Nash L.I.C.SCarroll - 01/12/2025 9:30 AM CDT Health and Behavior Psychosocial Assessment SUBJECTIVE Assessment Information Referral Source: Provider/Service Referral Name: Jesica Wasserman M.B., B. Referral Reason: Coping, adjustment and support, Psychosocial assessment, Distress screening tool Primary Language: Khmer Inspector Timers Services Used: No Sexuality/Pronoun: Straight / Person(s) present during interview: patient and spouse This initial health and behavior assessment was conducted through real-time audio/video technology by Swapna Willard from [facility] to the patient at patient's home. Patient is a 69 y.o. male with a new diagnosis of pancreatic cancer. Patient was referred by Luis Henriquez, Swapna due to emotional and psychosocial symptoms impacting the medical treatment of pancreatic cancer. The medical diagnosis was confirmed on 01-04-2025. Patient reported what he thought was just a stomachache and minor pain was diagnosis as pancreatic cancer. Patient said he has been experiencing increased anxiety, fatigue and ongoing pain. Patient does have an appointment scheduled with Urmila Mccoy, in [place], to reestablish mental health services. Patient engaged counseling approximately 3-4 years ago. Patient reported he has been using some of the coping skills he learned during his counseling sessions to help with his increased anxiety. He has also been taking lorazepam as needed. He said prior to his cancer diagnosis he really had the need to take lorazepam. Patient was referred to social worker psychiatric to discuss emotional health, coping strategies, stress management and review resources available to cancer patients. Disclaimer: They were advised of the various topics that will be assessed during this evaluation. It was discussed with the patient that staff are mandated reporters including responsibilities related to mental health professionals' duty related to the [place] Red Flag law and they reported understanding. They consented to proceed. The information provided in the assessment is based on review of the medical record as well as the video conference. They were advised that the content of this interview will be shared with the health care team and documented in the medical record. They were advised that anyone with access to their patient portal will have access to this information. 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 His parents are . Towards family members are supportive Citizenship: [place] Citizen Resident Status: [place] Resident Marital Status: Patient is . He has for daughters and 8 grandchildren. Family / Household: Patient resides independently in his private residence with his ,Rachel. Patient also reports that 1 of his daughters and 1 grandchild also lives in the same residence. Support System: spouse, children, family members, amish/paulina community, and friends/neighbors Primary Caregiver: self Caregiver Information: The patient does not have an identified caregiver. Spirituality/Jainism/Cultural Factors: Patient reports spirituality is a strong part of his support system. History: None reported Highest Level of Education: College degree Employment: retired Psychosocial Risk Factors Impacting the Patient: New diagnosis of cancer, Maltreatment: none reported Trauma: none reported Current Legal Status: Voluntary Legal History: none reported Current Stressors New diagnosis of cancer, fatigue, pain, increased anxious feelings Coping Skills/Strengths Insightful, motivated, ability to learn, good support network, reestablishing with his community mental health provider for upcoming appointment in February,, time with his dog Financial/Insurance Primary insurance: MEDICARE A AND B Secondary insurance: BLUE CROSS BLUE SHIELD Advance Directives Legal Decision Maker: Self Advance Directives Status: None on file The patient does not currently have an advance directive on file. Baseline Functional Status Baseline Activities of Daily Living Mobility: Independent Dressing: Independent Feeding: Independent Bathing: Independent Grooming: Independent Toileting: Independent Behavior: Appropriate, Calm, Pleasant Communication: Can write, Talks, Understands speaking, Understands Khmer, Reads, Appropriate to age/development Shopping: Independent Medication Management: Independent Housekeeping: Independent Meal Prep: Independent Assistive Devices: None Transportation: Independent to drive Managing Finances: Independent Baseline Services/Resources Primary care clinic and provider: ELSEWHERE, PCP Anticipated Needs none OBJECTIVE Substance Abuse no symptoms Family History There is a reported family history of the following medical, chemical, and mental health conditions: Family History[1] Current Services Patient is currently engaged in the following services: Psychotherapy with Urmila Mccoy MA license psychologist in [place]. Patient reports he has appointment scheduled in February. To reestablishservices Current Psychiatric Medication: Patient is currently taking the following medications to address symptoms per review of electronic medical record and patient report: Current Medications[2] Patient reported the medication is effective. The patient reported no adverse side effects. Patientworks with primary care provider for medication management and support. Mental Health Treatment History Past Treatments: Pharmacotherapy, Psychotherapy Psychotherapy details: Patient reported engaging in individual psychotherapy 3-4 years ago with Urmila Munguia MA licensed psychologist in [place] 01-12-25 [facility] Pharmacotherapies details: Patient reports his psychiatric medications are managed by his primary care provider. 01-12-25 [facility] Suicide Risk and Safety Risk Assessment: C-SSRS Short Version: [place] Suicide Severity Rating Scale (C-SSRS) - Short (Initial Screening) 1. Within the past month, have you wished you were or wished you could go to sleep and not wake up?: No 2. Within the past month, have you actually had any thoughts of killing yourself?: No 6. In your whole life have you ever done anything, started to do anything, or prepared to do anything to end your life?: No Risk Level: Low Risk Homicidal: no Mental Status Orientation: Oriented to person, place and time Level of consciousness: Awake and alert Appearance: Age appearing, Healthy, and Well-groomed Behavior observed: Calm and Interactive Memory: Good Concentration: Good Cooperation: cooperative and forthcoming Mood: calm and hopeful, acknowledges increased anxiety Affect: Mood-congruent Speech: Within normal limits for volume, rate and tone Thought content: No abnormality noted Thought process: Intact and Logical, linear, and goal-directed Judgement: intact Insight: intact Review of Psychiatric Symptoms: Sleep/insomnia: Patient reported struggling a bit more to fall asleep since his diagnosis. He is using lorazepam to help with sleep as needed Energy: decreased Appetite/weight: variable Anxiety symptoms: generalized worries, restlessness, fatigue, and daily worries about his cancer diagnosis Depression symptoms: depression in response to external stressors, sad, diminished interest/pleasure in activities, and increased isolation from others Other Mental Health Assessments PHQ 9 Score: 7 .Clinical Interpretation: score is clinically significant for symptoms of major depression. JOVITA 7 Score: 11 Clinical Interpretation: score is clinically significant for symptoms of generalized anxiety. Patient is scheduled for an appointment with a mental health provider in February 2025 for individualpsychotherapy. ASSESSMENT / PLAN ASSESSMENT Discussion Patient is a 69 y.o. male with a new diagnosis of pancreatic cancer. Patient was referred to socialworker to discuss emotional health, coping strategies, stress management and review resources available to cancer patients. Patient was referred for emotional and psychosocial symptoms impacting the medical treatment of pancreatic cancer. The medical diagnosis was confirmed on 01-04-2025. Patient said he has been experiencing increased anxiety, fatigue and ongoing pain. Patient does have an appointment scheduled with Urmila Mccoy in [place], to reestablish mental health services. Patient engaged in counseling approximately 3-4 years ago. Patient reported he has been using some of the coping skills he learned during his counseling sessions to help with his increased anxiety. He has also been taking lorazepam as needed. He said prior to his cancer diagnosis he rarely had the need to takelorazepam. Patient expressed his concerns about the increased use of his lorazepam. He said while he does not take it daily he does not want to become addicted or dependent on any medication. He was willing to follow up with his primary care provider regarding his increase in anxious feelings and concerns about becoming dependent on medication. Patient shared he has felt uncomfortable going out in public. He stated he does not want people in community to look at him and feel sorry for him regarding his cancer diagnosis. Patient also identifies as more of an introverted type of person and often prefers to stay at home. However, he does acknowledged that he has become more anxious and not wanting to go out in public. His has been very supportive and using positive communication and support to help decrease patient's anxiousness. Patient stated that he has been using breathing techniques, positive self talk flash cards and nail sousing the CALM ayaka to help manage his anxious feelings. Patient expressed feeling inpatient with his treatment plan. Patient reported what he thought was just a stomach ache and minor pain was diagnosis as pancreatic cancer. He will have his port placed within the next week in start chemotherapy treatment. Patient is also hopeful that he will be accepted into a clinical trial at [facility]. He identified the waiting between medical appointments and treatment starting causes him more anxious feelings and is stressful. He noted the feelings of nothaving control and worries about the unknown regarding his treatment planning. Patient stated he can not wait for things to get back to ???normal. ?? Patient reported feeling overwhelmed with all the information he has received since his diagnosis but was open to learning more about the role of social worker psychiatric in the cancer center and would like to be scheduled for follow up visits for additional support. INTERVENTIONS Provider engaged the patient in Cognitive Behavioral Therapy and Motivational Interviewing utilizing goal setting and validation and rapport building, empathetic communication, open ended questioning, affirmations, and summarizing to complete the assessment process. The patient was engaged as evidenced by interactive conversation with social worker psychiatric. suction worker discussed with the patient the role of social worker psychiatric in the cancer center including behavioral health services available. Patient reported having to pay [id number] for his community mental health provider in the past and was open to additional discussion about possible behavior health services with stove bottom worker. Socialworker allowed patient time to express feelings and concerns regarding cancer diagnosis and provided support, validation and empathetic listening. Discussed with patient the variety of emotions experienced after a new diagnosis of cancer, decisions regarding treatment planning and waiting for treatment to begin. Assisted patient in normalizing the feelings experienced since the diagnosis of cancer and discussed coping skills. Strongly encouraged patient to continue to use the coping skills he had learned when engaging in individual psychotherapy in the past and following up with his mental health provider. Discussed with patient the importance of staying engaged in social interactions and how it can be distractions to focus on an outside activity. suction worker encouraged patient to follow up with his primary care provider regarding medication management. suction worker discussed with patient the [facility] support group, Cancer Care, and [employer]. Patient provided with the [employer] handout ???Distress in People with Cancer.?? Encouraged patientto continue to practice good self-care, maintain a daily routine as able and to reach out to his support system as needed. The patient is in agreement with treatment plan. Anticipated barriers for patient to achieve treatment goals: None identified. Coordination of care completed with ELSEWHERE, PCP and oncology staff as needed. This provider engaged the patient in safety planning conversation. Patient is forward thinking and motivated to engage in treatment. Resources provided: suction worker mailed to patient resources for Cancer Care and [employer]. [facility] educational information was sent on acupressure for fatigue and for anxiety A list of agencies within the area that patient/family geographically resides or requests has been provided to and reviewed with patient/family. Disclosure of [facility]'s financial interest in [facility] ([facility]) was provided to and acknowledged by patient/family. TREATMENT PLAN Ongoing health and behavior follow up is clinically necessary and medically appropriate to continue. Patient's treatment plan for health and behavior sessions was created on 01-12-25 and agreed upon by provider and the patient. Duration of treatment sessions: 1- 5. Frequency and length of time of treatment sessions: 45-60 minutes every 4-6 weeks. Some variation with scheduling may occur based on patient and/or provider availability. Treatment goal: Goal is to reduce anxious feelings and decrease distress in patient's life while maintaining function in daily life and relationships to achieve quality of life goals. Today's focus was on normalizing patient's feelings, validating feelings and the importance of self-care. Objective: Patient will continue to take medications as prescribed and follow with their medical provider regarding questions about increased use of lorazepam. Patient will follow up with his community mental health provider as scheduled for an appointment in February. Patient will engage in at least1 social activity before next clinic visit. Patient will use positive self talk and breathing techniques at least 1 time each day to help manage anxious feelings. Patient will continue to identify the facts of stressful situations and identify what is within and outside of his control. Patient willcontinue to reach out to his support network as needed. Interventions/measure progress: Patient will self-monitor symptoms between appointments by making amental note and report to social worker psychiatric at upcoming appointments. Progress may be measured by patient's attending his [place] appointment with his community mental health worker. Progress may also be m easured by an increase in patient's social interactions. During each appointment, social worker psychiatric will ask the patient to identify progress made with the interventions and coping strategies. suction worker will review patient coping strategies patient has found successful. suction worker will continue to review treatment goals and plan at future clinic visits. Patient's next appointment will be in approximately 1 month. Kqpg-yj-Qmdz Start Time: 9:27 AM, Qndj-eq-Ezbt Stop Time: 10:24 AM Pcrt-tg-Lriv Total Time: 57 minutes Swapna Willard 01/12/2025 [1] Family History Problem Relation Name Age of Onset Hypertension Mother Stroke Mother Coronary artery disease Mother Hyperlipidemia Mother Arthritis Mother Heart failure Father Arthritis Father Lung cancer Sister Lung spot, treated, unknown if cancerous Blood clot Brother Cancer Maternal Grandfather Possible RA - Rheumatoid arthritis Daughter [id number] positive Ovarian cancer Mother's Sister [2] Current Outpatient Medications: acetaminophen (TYLENOL) 500 mg tablet, Take 2 tablets (1,000 mg total) by mouth 4 (four) times a day. (Patient taking differently: Take 1,000 mg by mouth as needed.), Disp: , Rfl: aspirin [address] tablet, Take 1 tablet (81 mg total) by mouth every morning. On hold prior to surgery - last dose 11/03/23, Disp: , Rfl: atorvastatin (LIPITOR) 80 mg tablet, Take 1 tablet by mouth every morning., Disp: , Rfl: buPROPion XL (WELLBUTRIN XL) 150 mg 24 hr tablet, Take 150 mg by mouth every morning. Take along with the 300 mg tablet for a total of 450mg, Disp: , Rfl: buPROPion XL (WELLBUTRIN XL) 300 mg 24 hr tablet, Take 300 mg by mouth every morning. Take along with 150 mg tablet for a total of 450 mg, Disp: , Rfl: clopidogreL (Plavix) 75 mg tablet, Take 1 tablet by mouth daily., Disp: , Rfl: escitalopram (LEXAPRO) 20 mg tablet, Take 1 tablet by mouth every morning., Disp: , Rfl: LORazepam (ATIVAN) 0.5 mg tablet, Take 1 tablet (0.5 mg total) by mouth as needed for anxiety. Do not take concurrently with opioids., Disp: , Rfl: nitroglycerin (NITROSTAT) 0.4 mg SL tablet, Place 0.4 mg under the tongue every 2 (two) hours as needed for chest pain., Disp: , Rfl: oxyCODONE (Roxicodone) 5 mg immediate release tablet, Take 1-2 tablets (5-10 mg total) by mouth every 4 (four) hours as needed for severe pain or score 7-10 of 10 Indication: Chronic Pain/Nonacute Pain., Disp: 30 tablet, Rfl: 0 sildenafiL (VIAGRA) 100 mg tablet, Take 100 mg by mouth as needed for erectile dysfunction., Disp: , Rfl: documented in this encounter Plan of Treatment Upcoming Encounters Date Type Department Care Team (Latest Contact Info) Description 02/04/2025 7:00 AM CDT Lab Department of Infusion Therapy in [address] [phone] Skip Amaya M.D., Ph.D. [address] [place] [phone] 02/04/2025 8:20 AM CDT Office Visit Department of Oncology in [address] [phone] Jag Frye, TUBE REPAIRER, C.N.P., D.N.P. [address] [place] [phone] 02/04/2025 2:00 PM CDT Infusion Department of Oncology in [address] [phone] Skip Amaya M.D., Ph.D. [address] [place] [phone] 02/08/2025 2:15 PM CDT Clinical Communication Virtual Review in [address] [place] [address] 02/09/2025 9:30 AM CDT Telemedicine Department of Oncology in [address] [phone] Jesica Wasserman M.B., B.Ch. [facility] [place] [address] Cecily Nash L.I.C.S.W. [facility] [place] [address] 02/10/2025 12:00 PM CDT Lab Department of Infusion Therapy in [place], [place] [address] [place] [phone] Skip Amaya M.D., Ph.D. [address] [place] [phone] 02/10/2025 2:30 PM CDT Office Visit Department of Oncology in [place], [place] [address] [place] [phone] Rosenda Garza, [facility] [address] [place] [phone] 02/11/2025 8:00 AM CDT Infusion Department of Oncology in [place], [place] [address] [place] [phone] Skip Amaya M.D., Ph.D. [address] [place] [phone] 02/23/2025 2:15 PM CDT Clinical Communication Virtual Review in [place], [place] [address] [place] [address] 02/25/2025 8:30 AM CDT Lab Department of Oncology in [place], [place] [address] [place] [phone] Skip Amaya M.D., Ph.D. [address] [place] [phone] 02/25/2025 10:40 AM CDT Office Visit Department of Oncology in [place], [place] [address] [place] [phone] Sandy Judge, KASH, C.N.P., M.S. [address] [place] [phone] 02/25/2025 11:30 AM CDT Infusion Department of Oncology in [place], [place] [address] [place] [phone] Skip Amaya M.D., Ph.D. [address] [place] [phone] 03/04/2025 6:00 AM CDT Lab Department of Infusion Therapy in [place], [place] [address] [place] [phone] Skip Amaya M.D., Ph.D. [address] [place] [phone] 03/04/2025 8:10 AM CDT Office Visit Department of Oncology in [place], [place] [address] [place] [phone] Jie Shook P.A.-C. [address] [place] [phone] 03/04/2025 9:30 AM CDT Infusion Department of Oncology in [place], [place] [address] [place] [phone] Skip Amaya M.D., Ph.D. [address] [place] [phone] 03/10/2025 2:15 PM CDT Clinical Communication Virtual Review in [place], [place] 200 [place] [address] 03/11/2025 6:00 AM CDT Lab Department of Laboratory Medicine and Pathology, [facility], in [place], [place] [address] [place] [phone] Skip Amaya M.D., Ph.D. [address] [place] [phone] 03/11/2025 7:20 AM CDT Office Visit Department of Oncology in [address] [phone] Bipin Leal P.A.-C., M.S. [address] [place] [phone] 03/11/2025 8:00 AM CDT Infusion Department of Oncology in [address] [address] Skip Amaya M.D., Ph.D. [address] [place] [phone] 03/24/2025 11:20 AM CDT Lab Department of Infusion Therapy in [address] [phone] Skip Amaya M.D., Ph.D. [address] [place] [phone] 03/24/2025 1:30 PM CDT Office Visit Department of Oncology in [address] [phone] Skip Amaya M.D., Ph.D. [address] [place] [phone] 03/25/2025 7:00 AM CDT Infusion Department of Oncology in [place], [place] [address] [place] [phone] Skip Amaya M.D., Ph.D. [address] [place] [phone] 03/29/2025 2:30 PM CDT Clinical Communication Virtual Review in [place], [place] 200 [place] [address] 04/01/2025 6:00 AM CDT Lab Department of Infusion Therapy in [place], [place] [address] [place] [phone] Skip Amaya M.D., Ph.D. [address] [place] [phone] 04/01/2025 8:20 AM CDT Office Visit Department of Oncology in [place], [place] [address] [place] [phone] Precious Hill M.D., Ph.D. [address] [place] [phone] 04/01/2025 9:00 AM CDT Infusion Department of Oncology in [address] [phone] Skip Amaya M.D., Ph.D. [address] [place] [phone] 04/07/2025 11:00 AM CDT Lab Department of Infusion Therapy in [address] [address] Skip Amaya M.D., Ph.D. [address] [place] [phone] 04/07/2025 1:20 PM CDT Office Visit Department of Oncology in [address] [phone] Sandy Judge APRN, C.N.P., M.S. [address] [place] [phone] 04/08/2025 7:00 AM CDT Infusion Department of Oncology in [place], [place] [address] [place] [phone] Skip Amaya M.D., Ph.D. [address] [place] [phone] 04/21/2025 7:15 AM CDT Clinical Communication Virtual Review in [place], [place] 200 [place] [address] 04/22/2025 7:20 AM CDT Lab Department of Infusion Therapy in [place], [place] [address] [place] [phone] Skip Amaya M.D., Ph.D. [address] [place] [phone] 04/22/2025 9:20 AM CDT Office Visit Department of Oncology in [address] [phone] Sandy Judge APRN, C.N.Bhavin., M.S. [address] [place] [phone] 04/22/2025 10:30 AM CDT Infusion Department of Oncology in [address] [address] Skip Amaya M.D., Ph.D. [address] [place] [phone] Scheduled Referrals Name Type Priority Associated Diagnoses Order Schedule Psychiatry and Psychology office visit (clinic) [facility] Outpatient Referral Routine Expected: 02/13/2025, Expires: 04/15/2026 documented as of this encounter Goals Goal Patient Goal Type Associated Problems Recent Progress Patient-Stated? 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
--- OUTSIDE RECORDS SUMMARY | 2025-01-17 11:02 | XMS_ITS | Encounter Summary ---
Author Organization [facility] Address [address] [place] [address] Care Team Providers Care Transformer Coil Winder Name Role Phone Elsewhere, Pcp Primary [...] Access Device Placement Jesica Wasserman M.B., B.Ch. [address] [place] [address] Phone: tel: fax: [facility] Region Referral ID Status Reason Start Date Expiration Date Visits Re quested Visits Authorized [id number] Closed 01/05/2025 04/07/2026 1 1 Reason for Visit * Outpatient [...] Access Device Placement Jesica Wasserman M.B., B.Ch. [address] [place] [phone] Phone: tel: fax: [facility] Region Referral ID Status Reason Start Date Expiration Date Visits Re quested Visits Authorized [id number] Closed 01/05/2025 04/07/2026 1 1 Encounter Details Date Type Department Care Team (Latest Contact Info) Description 01/17/2025 11:02 AM CDT - 01/17/2025 1:41 PM CDT Hospital Encounter Department of Radiology in [address] [address] Jesica Wasserman M.B., B.Ch. [address] [place] [phone] Jony Avilez M.D. 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 Alcohol Use Standard Drinks/Week Comments Not Currently 1 (1 standard drink = 0.6 oz pur e alcohol) 0-1 drink per week [facility] Utilities Answer Date Recorded In the past 12 months has th e [employer], gas, oil, or water [facility] threatened to shut off services in your [...] your living situation today? I have a [facility] place to live 12/23/2024 Education Answer Date Recorded What is the highest level of school you have completed or the highest degree you have received? Master's degree (e.g., MA, MS, Katelyn, MEd, CHAIR TRIMMER, KELLEE) 01/05/2025 Sex and Gender Information Value Date Recorded Sex Assigned at Male 09/10/2023 7:48 AM BRUSH CUTTER Legal Sex Male 10:11 PM BRUSH CUTTER Gender Identity Male 09/10/2023 7:48 AM BRUSH CUTTER Sexual Orientation Straight 09/10/2023 7: 48 AM BRUSH CUTTER documented as of this encounter Last Filed Vital Signs Vital Sign Reading Time Taken Comments Blood Pressure 118/79 01/17/2025 1:15 PM CDT Pulse 75 01/17/2025 1:15 PM CDT Temperature 36.4 C (97.5 F) 01/17/2025 11:10 AM CDT Respiratory Rate 13 01/17/2025 1:00 PM CDT Oxygen Saturation 93% 01/17/2025 1:15 PM CDT Inhaled Oxygen Concentration - - Weight - - Height - - Body Mass Index - - documented in this encounter Discharge Instructions * Discharge Instr - Activity* Stephanie Jones, R.N. - 01/17/2025 1:00 PM CDT After you have been sedated, it is common to have lapses of memory, slowed reaction time and impaired judgement. For the rest of the day after being sedated and for the next 24 hours: * Do not drive or operate motorized vehicles or equipment. * Do not return to work or school. * Do not take on responsibility for children or anyone who depends on your care. * Do not use exercise equipment or take part in rough play or sports. * Do not drink alcoholic beverages. Contacting your health care provider: Contact your health care provider if: * Any of the side effects continue longer than 24 hours. * You notice the following signs of infection: - Increased tenderness, redness or swelling at the IV insertion site or an incision. - Increased pain or pain not relieved by pain medications. - Drainage, bleeding or foul-smelling odor coming from an incision. - Temperature of 100.4 degrees Fahrenheit (38 degrees Celcius) or greater. If you have any questions or concerns, please call [phone] (select option 3), for the Interventional Radiology nurse. Our office hours are Friday thru Friday approx. 8:00-4:00pm. * Attachments The following attachments cannot be sent through Care Everywhere. * Implantable Vascular-Access Device: Also Known as an IVAD or Port documented in this encounter Medications at Time [...] hours as needed for chest pain. 06/11/2023 oxyCODONE (Roxicodone) 5 mg immediate release tabletIndication s:Chronic Pain/Nonacute Pain Take 1-2 tablets (5-10 mg total) by mouth every 4 (four) hours as needed for severe pain or score 7-10 of 10 Indication: Chronic Pain/Nonacute Pain. 30 tablet 01/11/2025 sildenafiL (VIAGRA) 100 mg tablet Take 100 mg by mouth as needed for erectile dysfunction. clopidogreL (Plavix) 75 mg tablet Take 1 tablet by mouth daily. 02/19/2024 documented as of this encounter Procedure Notes * Jony Avilez M.D. - 01/17/2025 12:34 PM CDT BRIEF POST PROCEDURE NOTE Vascular & Interventional Radiology PROCEDURE Right IJV port insertion PRE-PROCEDURE DIAGNOSIS Pancreatic cancer POST-PROCEDURE DIAGNOSIS Same. PROCEDURE DETAILS / FINDINGS Right IJV Power-port insertion with the tip of the non-valved open-tipped catheter located near thesuperior cavoatrial junction. Catheter heparin-locked with 100 u/mL heparin. Catheter is ready to use. Please see Radiology Report for full details. PROTECTION MGR Oiron Avilez M.D. SPECIMENS REMOVED None ESTIMATED BLOOD LOSS <5ml COMPLICATIONS None. PATIENT DISPOSITION Return to Outpatient Unit for recovery. Discharge patient when discharge criteria met. PLAN Of note, this is a non-valved open-tipped catheter, and the Power-port catheter will need to be heparin-locked with 100 u/mL heparin after each use. documented in this encounter Plan of Treatment Upcoming Encounters Date Type Department Care Team (Latest Contact Info) Description 02/04/2025 7:00 AM CDT Lab Department of Infusion Therapy in [place], [place] [address] [place] [phone] Skip Amaya M.D., Ph.D. [address] [place] [phone] 02/04/2025 8:20 AM CDT Office Visit Department of Oncology in [place], [place] [address] [place] [phone] Jag Frye, KASH, C.N.P., D.N.P. [address] [place] [phone] 02/04/2025 2:00 PM CDT Infusion Department of Oncology in [place], [place] [address] [place] [phone] Skip Amaya M.D., Ph.D. [address] [place] [phone] 02/08/2025 2:15 PM CDT Clinical Communication Virtual Review in [place], [place] [address] [place] [phone] 02/09/2025 9:30 AM CDT Telemedicine Department of Oncology in [address] [phone] Jesica Wasserman M.B., B.Ch. [address] [place] [phone] Cecily Nash, WeroI.C.S.W. [address] [place] [phone] 02/10/2025 12:00 PM CDT Lab Department of Infusion Therapy in [address] [phone] Skip Amaya M.D., Ph.D. [address] [place] [phone] 02/10/2025 2:30 PM CDT Office Visit Department of Oncology in [place], [place] [address] [place] [phone] Rosenda Garza MPAS, P.A.-C. [address] [place] [phone] 02/11/2025 8:00 AM CDT Infusion Department of Oncology in [place], [place] [address] [place] [phone] Skip Amaya M.D., Ph.D. [address] [place] [phone] 02/23/2025 2:15 PM CDT Clinical Communication Virtual Review in [place], [place] [address] [place] [phone] 02/25/2025 8:30 AM CDT Lab Department of Oncology in [place], [place] [address] [place] [phone] Skip Amaya M.D., Ph.D. [address] [place] [phone] 02/25/2025 10:40 AM CDT Office Visit Department of Oncology in [place], [place] [address] [place] [phone] Sandy Judge APRN, C.N.P., M.S. [address] [place] [phone] 02/25/2025 11:30 AM CDT Infusion Department of Oncology in [address] [phone] Skip Amaya M.D., Ph.D. [address] [place] [phone] 03/04/2025 6:00 AM CDT Lab Department of Infusion Therapy in [place], [place] [address] [place] [phone] Skip Amaya M.D., Ph.D. [address] [place] [phone] 03/04/2025 8:10 AM CDT Office Visit Department of Oncology in [place], [place] [address] [place] [phone] Jie Shook P.A.-C. [address] [place] [phone] 03/04/2025 9:30 AM CDT Infusion Department of Oncology in [place], [place] [address] [place] [phone] Skip Amaya M.D., Ph.D. [address] [place] [phone] 03/10/2025 2:15 PM CDT Clinical Communication Virtual Review in [place], [place] [address] [place] [phone] 03/11/2025 6:00 AM CDT Lab Department of Laboratory Medicine and Pathology, [facility], in [address] [phone] Skip Amaya M.D., Ph.D. [address] [place] [phone] 03/11/2025 7:20 AM CDT Office Visit Department of Oncology in [address] [phone] Bipin Leal P.A.-C., M.S. [address] [place] [phone] 03/11/2025 8:00 AM CDT Infusion Department of Oncology in [place], [place] [address] [place] [phone] Skip Amaya M.D., Ph.D. [address] [place] [phone] 03/24/2025 11:20 AM CDT Lab Department of Infusion Therapy in [place], [place] [address] [place] [phone] Skip Amaya M.D., Ph.D. [address] [place] [phone] 03/24/2025 1:30 PM CDT Office Visit Department of Oncology in [address] [phone] Skip Amaya M.D., Ph.D. [address] [place] [phone] 03/25/2025 7:00 AM CDT Infusion Department of Oncology in [address] [phone] Skip Amaya M.D., Ph.D. [address] [place] [phone] 03/29/2025 2:30 PM CDT Clinical Communication Virtual Review in [place], [place] [address] [place] [phone] 04/01/2025 6:00 AM CDT Lab Department of Infusion Therapy in [address] [phone] Skip Amaya M.D., Ph.D. [address] [place] [phone] 04/01/2025 8:20 AM CDT Office Visit Department of Oncology in [place], [place] [address] [place] [phone] Precious Hill M.D., Ph.D. [address] [place] [phone] 04/01/2025 9:00 AM CDT Infusion Department of Oncology in [place], [place] [address] [place] [phone] Skip Amaya M.D., Ph.D. [address] [place] [phone] 04/07/2025 11:00 AM CDT Lab Department of Infusion Therapy in [address] [phone] Skip Amaya M.D., Ph.D. [address] [place] [phone] 04/07/2025 1:20 PM CDT Office Visit Department of Oncology in [address] [phone] Sandy Judge, KASH, C.N.P., M.S. [address] [place] [phone] 04/08/2025 7:00 AM CDT Infusion Department of Oncology in [address] [phone] Skip Amaya M.D., Ph.D. [address] [place] [phone] 04/21/2025 7:15 AM CDT Clinical Communication Virtual Review in [place], [place] [address] [place] [address] 04/22/2025 7:20 AM CDT Lab Department of Infusion Therapy in [address] [phone] Skip Amaya M.D., Ph.D. [address] [place] [phone] 04/22/2025 9:20 AM CDT Office Visit Department of Oncology in [place], [place] [address] [place] [phone] Sandy Judge, KASH, C.N.P., M.S. [address] [place] [phone] 04/22/2025 10:30 AM CDT Infusion Department of Oncology in [place], [place] [address] [place] [phone] Skip Amaya M.D., Ph.D. [address] [place] [phone] documented as of this encounter Goals Goal Patient Goal Type Associated Problems Recent Progress Patient-Stated? Author Autogenerat ed Goal Care Plan Autogenerated Problem No Hedy Lees, RJustynN. 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 Patient education provided by a care meat team lead. Patient was ready to learn with no [...] Vein Venogram: No Venous access device: 8 Malay single lumen PowerPort with non-valved open-ended catheter [...] medications. Patient education provided by a care meat team lead. Patient was ready to learn withno apparent [...] Vein Venogram: No Venous access device: 8 Malay single lumen PowerPort with [id number] catheter tip. Of note, this is not [...] B.Ch. IMG IR PROCEDURES Final R esult documented in this encounter Visit Diagnoses Diagnosis Depression Major One Episode Moderate (HCC) Hypertensive [...] Intra Abdominal (HCC) documented in this encounter Administered Medications Inactive Administered Medications - up to 3 most recent administrations Medication Order MAR Action Action Date Dose Rate Site fentaNYL injection 25 mcg (Sublimaze) 25 mcg, [...] is less than 8 breaths/minute., Starting on Fri01/17/25 at 1201, Intraprocedure (RAD), Subsequent doses Given 01/17/2025 12:22 PM CDT 25 mcg Given 01/17/2025 12:18 PM CDT 25 mcg fentaNYL injection 25 mcg (Sublimaze) 25 mcg, intravenous, Once as needed, sedation, Starting on Fri01/17/25 at 1201, For 1 dose, Intraprocedure (RAD), IV Push, Initial dose Given 01/17/2025 12:18 PM CDT 25 mcg flumazeniL injection 0.2 mg (Romazicon) 0.2 mg, intravenous, Once as needed, reversal, Starting on Fri01/17/25 at 1201, For 1 dose, Intraprocedure (RAD), Administer once if patient has a RASS score of -4, -5 and has a respiratory rate less than 8 breaths/minute. heparin flush As needed, Starting on Fri01/17/25 at 1227, Intra-Op Given 01/17/2025 12:27 PM CDT 300 Units lidocaine-sodium bicarbonate (buffered) 0.9%-0.84% injection infiltration, As needed, Starting on Fri01/17/25 at 1217, Intra-Op Given 01/17/2025 12:20 PM CDT 10 mL Chest Given 01/17/2025 12:17 PM CDT 5 mL C hest midazolam (PF) injection 0.25 mg (Versed) 0.25 mg, intravenous, Every 2 min PRN, sedation, RASS -2, Starting on Fri01/17/25 at 1201, Intraprocedure (RAD), May repeat every 2 minutes to a maximum of 5 mg. Do not give if respiratory rate is less than 8 breaths/minute. midazolam (PF) injection 0.5 mg (Versed) 0.5 mg, intravenous, Once as needed, sedation, Starting on Fri01/17/25 at 1201, For 1 dose, Intraprocedure (RAD) midazolam (PF) injection 0.5 mg (Versed) 0.5 mg, intravenous, Every 2 min PRN, sedation, RASS -1, Starting on Fri01/17/25 at 1201, Intraprocedure (RAD), May repeat every 2 minutes for a maximum of 5 mg. Do not give if respiratory rate is less than 8 breaths/minute. Given 01/17/2025 12:21 PM CDT 0.5 mg midazolam (PF) injection 1 mg (Versed) 1 mg, intravenous, Every 2 min PRN, sedation, RASS 0, Starting on Fri01/17/25 at 1201, Intraprocedure (RAD), May repeat every 2 minutes for a maximum of 5 mg. Do not give if respiratory rate is less than 8 breaths/minute. Given 01/17/2025 12:18 PM CDT 1 mg NaCl 0.9% infusion 20 mL/hr, intravenous, Once as needed, to keep vein open, Starting on Fri01/17/25 at 1201, For 1 dose, Intraprocedure (RAD) naloxone injection 0.2 mg 0.2 mg, intravenous, Once as needed, respiratory depression, Starting on Fri01/17/25 at 1201, For 1 dose, Intraprocedure (RAD), Administer once if patient has a RASS score of -4, -5 and has a respiratory rate less than 8 breaths/minute. sodium chloride 0.9 % injection 10 mL 10 mL, intravenous, As needed, line care, Starting on Fri01/17/25 at 1201, Intraprocedure (RAD), Peripheral Intravenous Catheter and Rapid Infusion Catheter, prior to blood sampling, post blood transfusion or post blood sampling sodium chloride 0.9 % injection 3 mL 3 mL, intravenous, As needed, line care, Starting on Fri01/17/25 at 1201, Intraprocedure (RAD), Prior to and following infusion and between multiple consecutive infusions: sodium chloride 0.9 % injection sodium chloride 0.9 % injection 3 mL 3 mL, intravenous, Every 12 hours scheduled, First dose on Fri01/17/25 at 2100, Intraprocedure (RAD), Peripheral Intravenous Catheter and Rapid Infusion Catheter, when no infusion to maintain patency documented in this encounter Active and Recently Administered Medications Times are shown in CDT. Scheduled Medication Order 01/15/2025 01/16/2025 01/17/2025 sodium chloride 0.9 % injection 3 mL 3 mL, intravenous, Every 12 hours scheduled, First dose on Fri01/17/25 at 2100, Intraprocedure (RAD), Peripheral Intravenous Catheter and Rapid Infusion Catheter, when no infusion to maintain patency PRN Medication Order 01/15/2025 01/16/2025 01/17/2025 fentaNYL injection 25 mcg (Sublimaze) 25 mcg, [...] is less than 8 breaths/minute., Starting on Fri01/17/25 at 1201, Intraprocedure (RAD), Subsequent doses 1218 (Given - Provid er: Sabrina Fine R.N.)1222 (Given - Provider: Sabrina Fine R.N.) fentaNYL injection 25 mcg (Sublimaze) (COMPLETED) 25 mcg, intravenous, Once as needed, sedation, Starting on Fri01/17/25 at 1201, For 1 dose, Intraprocedure (RAD), IV Push, Initial dose 1218 (Given - Provid er: Sabrina Fine R.N.) flumazeniL injection 0.2 mg (Romazicon) 0.2 mg, intravenous, Once as needed, reversal, Starting on Fri01/17/25 at 1201, For 1 dose, Intraprocedure (RAD), Administer once if patient has a RASS score of -4, -5 and has a respiratory rate less than 8 breaths/minute. heparin flush (COMPLETED) As needed, Starting on Fri01/17/25 at 1227, Intra-Op 1227 (Given - Provid er: Jony Avilez M.D.) lidocaine-sodium bicarbonate (buffered) 0.9%-0.84% injection (COMPLETED) infiltration, As needed, Starting on Fri01/17/25 at 1217, Intra-Op 1217 (Given - Provid er: Jony Avilez M.D.)1220 (Given - Provider: Jony Avilez M.D.) midazolam (PF) injection 0.25 mg (Versed) 0.25 mg, intravenous, Every 2 min PRN, sedation, RASS -2, Starting on Fri01/17/25 at 1201, Intraprocedure (RAD), May repeat every 2 minutes to a maximum of 5 mg. Do not give if respiratory rate is less than 8 breaths/minute. midazolam (PF) injection 0.5 mg (Versed) 0.5 mg, intravenous, Once as needed, sedation, Starting on Fri01/17/25 at 1201, For 1 dose, Intraprocedure (RAD) midazolam (PF) injection 0.5 mg (Versed) 0.5 mg, intravenous, Every 2 min PRN, sedation, RASS -1, Starting on Fri01/17/25 at 1201, Intraprocedure (RAD), May repeat every 2 minutes for a maximum of 5 mg. Do not give if respiratory rate is less than 8 breaths/minute. 1221 (Given - Provid er: Sabrina Fine R.N.) midazolam (PF) injection 1 mg (Versed) 1 mg, intravenous, Every 2 min PRN, sedation, RASS 0, Starting on Fri01/17/25 at 1201, Intraprocedure (RAD), May repeat every 2 minutes for a maximum of 5 mg. Do not give if respiratory rate is less than 8 breaths/minute. 1218 (Given - Provid er: Sabrina Fine R.N.) NaCl 0.9% infusion 20 mL/hr, intravenous, Once as needed, to keep vein open, Starting on Fri01/17/25 at 1201, For 1 dose, Intraprocedure (RAD) naloxone injection 0.2 mg 0.2 mg, intravenous, Once as needed, respiratory depression, Starting on Fri01/17/25 at 1201, For 1 dose, Intraprocedure (RAD), Administer once if patient has a RASS score of -4, -5 and has a respiratory rate less than 8 breaths/minute. sodium chloride 0.9 % injection 10 mL 10 mL, intravenous, As needed, line care, Starting on Fri01/17/25 at 1201, Intraprocedure (RAD), Peripheral Intravenous Catheter and Rapid Infusion Catheter, prior to blood sampling, post blood transfusion or post blood sampling sodium chloride 0.9 % injection 3 mL 3 mL, intravenous, As needed, line care, Starting on Fri01/17/25 at 1201, Intraprocedure (RAD), Prior to and following infusion and between multiple consecutive infusions: sodium chloride 0.9 % injection documented in this encounter Additional Health Concerns Active Problems Noted Date Diagnosed Date Autogenerated Problem 11/16/2024 Assessment Noted Time PHQ-9 Depression Total Score: 7 01/12/20 25 9:53 AM CDT documented as of this encounter Care Teams Transformer Coil Winder Relationship Specialty Start Date End Date Elsewhere, Pcp PCP - General Internal Medicine 09/09/23 documented as of this encounter
--- OUTSIDE RECORDS SUMMARY | 2025-01-19 10:00 | XMS_ITS | Encounter Summary ---
Author Organization [facility] Address [address] [place] [phone] Care Team Providers Care Clinical Application Manager Name Role Phone Elsewhere, Pcp Primary [...] (HCC) Mass Pancreas Jesica Wasserman M.B., B.Ch. [address] [place] [address] Phone: tel: fax: [facility] Referral ID Status Reason Start Date Expiration Date Visits Re quested Visits Authorized [id number] Closed 01/05/2025 07/07/2026 1 1 Encounter Details Date Type Department Care Team (Latest Contact Info) Description 01/19/2025 10:00 AM CDT Comprehensive Visit Department of Oncology in [place], [place] [address] [place] [phone] Skip Amaya M.D., Ph.D. 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 [facility] 12/23/2024 Education Answer Date Recorded What is the highest level of school you have completed or the highest degree you have received? 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 Legal Sex Male 10:11 PM TONSORIAL ARTIST Gender Identity Male 09/10/2023 7:48 AM TONSORIAL ARTIST Sexual Orientation Straight 09/10/2023 7: 48 AM TONSORIAL ARTIST documented as of this encounter Last Filed Vital Signs Vital Sign Reading Time Taken Comments Blood Pressure 108/73 01/19/2025 10:01 AM CDT Pulse 99 01/19/2025 10:01 AM CDT Temperature 36.2 C (97.2 F) 01/19/2025 10:01 AM CDT Respiratory Rate 16 01/19/2025 10:0 1 AM CDT Oxygen Saturation 97% 01/19/2025 10: 01 AM CDT Inhaled Oxygen Concentration - - Weight 94.8 kg (208 lb 15.9 oz) 025 10:01 AM CDT Height 181.5 cm (5' 11.46) 01/19/2025 10:01 AM CDT Body Mass Index 28.78 01/19/2025 10:01 AM CDT documented in this encounter Consult Notes * Skip Amaya M.D., Ph.D. - 01/19/2025 10:00 AM CDT SUBJECTIVE Referral Jesica Wasserman M.B., B.Ch. Primary [place] Staff: Dr. Jesica Wasserman / Dr. Skip Amaya ([id number]) / Sandy Judge APRN, VETERINARY PRACTICE MANAGER, [place] Chief Complaint / Reason for Visit Pancreatic cancer Current Therapy: None Current Disease Status: Not able to assess (baseline visit) ECOG Performance Status: 0 Intent of Therapy: Control Intent to Change Therapy: Not applicable (baseline or planning visit) History of Present Illness Oncology History Overview Note December 21, 2024 - Patient presented to family medicine with complaints of abdominal pain x 2 weeks. Notes 20 pound weight loss in 10 months, lack of appetite, and occasional drenching night sweats. Malignant Neoplasm Of Pancreas Tail (HCC) Critical Imaging 12/21/2024 - CT Abdomen Pelvis with IV Contrast: IMPRESSION 1. No CT evidence of an acute process involving the abdomen or pelvis. 2. There is a low-density lesion in the pancreatic tail measuring approximately 4.5 centimeters in greatest dimension, somewhat cystic in appearance, concerning for pancreatic adenocarcinoma versus apancreatic cystic neoplasm. Recommend further assessment with an outpatient abdominal MRI with a pancreatic protocol. 3. Ill-defined low-density lesion in hepatic segment 6 measuring approximately 4.0 centimeters in greatest dimension, favored to represent a metastatic lesion. 4. Additional low-density lesion in the wall of the stomach near the fundus posteriorly, also concerning for a metastatic lesion. 5. There are few indeterminate, non pathologically enlarged lymph nodes in the upper abdomen. 12/23/2024 - CT Chest with IV Contrast: IMPRESSION 1. Minimally increased indeterminate right lower lobe pulmonary nodule measuring 9 mm, previously 8mm on CT from 02/18/2024. Metastatic disease is difficult to exclude. 2. No lymphadenopathy or suspicious osseous lesions. 3. Pancreatic tail cystic mass and suspected gastric and hepatic metastases are better evaluated onrecently performed CT abdomen and pelvis. 12/28/2024 - CT Pancreas Angiogram Triple Phase and Pelvis with IV Contrast: IMPRESSION: 1. 4.5 cm hypoenhancing mass in [...] Several suspicious peripancreatic and periportal lymph nodes. 12/30/2024 Biopsy/Pathology A. Liver, Mass, fine needle aspiration (smears/core [...] p40, arginase, TTF1 (8G7G3/1), NKX3.1, and PAX8. 12/30/2024 Initial Diagnosis Malignant Neoplasm Of Pancreas Tail (HCC) 12/30/2024 Genetic Testing and Tumor Genotyping Cell-Free DNA KRAS: Result Summary POSITIVE 01/05/2025 Genetic Testing and Tumor Genotyping Germline genetic testing in 2024; Multi-Cancer + RNA panel through [facility]. No pathogenic variants identified. One heterozygous variant of uncertain significance found in the RET gene, specifically named c.1737C>G (p.[id number]). Interval History Mr. Noel Mata is a 69 year-old gentleman accompanied by his and two daughters from [place], [place] presenting in consultation for pancreatic cancer. Mr. Mata lives at home with his . They have four daughters and a grandchildren. Mr. Mata has seven sisters. 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 He loves golfing and has a 4-year-old [place] mountain dog that he loves. He used to play a lot of baseball and was even drafted for the [employer]. The following were reviewed and updated as appropriate: allergies, current medications, family history, medical history, social history, surgical history, and problem list. Review of Systems REVIEW OF SYSTEMS Reviewed encounter review of systems and pertinent responses are noted in the history. OBJECTIVE Vitals There were no vitals filed for this visit. Wt Readings from Last 3 Encounters: 01/05/25 94.8 kg 12/30/24 95.5 kg 12/29/24 97.3 kg BMI Readings from Last 3 Encounters: 01/05/25 28.75 kg/m?? 12/30/24 28.52 kg/m?? 12/29/24 29.05 kg/m?? Physical Examination General: Patient is in no acute distress, sitting comfortably on the couch, very pleasant HEENT: Pupils are equal and reactive to light, extraocular movements intact, sclerae are clear Skin: No concerning rashes or lesions appreciated Respiratory: No increased work of breathing Musculoskeletal: No evidence of active synovitis Psychiatric: Alert and oriented with appropriate mood and affect. ECOG Performance Status: 0 ASSESSMENT / PLAN Assessment Metastatic adenocarcinoma of the pancreatic tail Mr. Noel Mata is a 69 year-old gentleman accompanied by his and two daughters from [place], [place] presenting in consultation for pancreatic cancer. We had the opportunity to extensively discuss Mr. Navas presentation, family and social history. We also reviewed the significance of recent laboratory results and imaging studies. We had a lengthy discussion regarding the staging, natural history, and prognosis of pancreatic ductal adenocarcinoma. I stressed the importance of resectability of pancreatic cancer being the determinant of whether the malignancy can be theoretically cured. In light of staging investigations Mr. Navas disease is considered metastatic. Thus, I emphasized that the intent of treatment is for disease control. I explained that with treatment given for disease control, we proceed with treatment acknowledging that we cannot get rid of the cancer. Thus, the goal is to prolong life while also finding a balancemaintaining quality of life. 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 Finally, we discussed standard systemic therapy options including FOLFIRINOX or gemcitabine and nab-paclitaxel. In addition, we reviewed clinical trial options. The option of not proceeding with cancer-directed therapy in lieu of symptom based management to enhance quality of life was also reviewed. In light of the patient's performance status, I recommended proceeding with the PRISM-1 clinical trial. Common side effects, treatment scheduling, duration and administration were all discussed. CONSENT I have discussed the clinical trial A Randomized, Placebo-Controlled, Double- Blind, Multicenter, Phase 3 Trial Of Quemliclustat And Chemotherapy Versus Placebo And Chemotherapy In Patients With Treatment-Naive Metastatic Pancreatic Ductal Adenocarcinoma and associated consent with the patient today. Potential risks and benefits have been discussed along with alternative therapies. The patient hasbeen given an opportunity to review the consent form and questions have been answered. The patient has agreed to participate in this ongoing clinical trial. The consent form has been signed and datedby the patient in my presence. A copy of the signed consent form has been given to the patient. Plan Tumor genotyping will be performed via [facility]. Mr. Mata will proceed with screening for the PRISM-1 clinical trial. Patient Education: Ready to learn, no apparent learning barriers were identified; learning preferences include listening. Explained diagnosis and treatment plan; patient expressed understanding of the content. I personally spent >50% of a total 60 minutes with the patient in counseling and coordination ofcare. documented in this encounter Plan of Treatment Upcoming Encounters Date Type Department Care Team (Latest Contact Info) Description 02/04/2025 7:00 AM CDT Lab Department of Infusion Therapy in [place], [place] 200 [place] [address] Skip Amaya M.D., Ph.D. [address] [place] [address] 02/04/2025 8:20 AM CDT Office Visit Department of Oncology in [place], [place] [address] [place] [phone] aJg Frye, KASH, C.N.P., D.N.P. [address] [place] [phone] 02/04/2025 2:00 PM CDT Infusion Department of Oncology in [place], [place] [address] [place] [phone] Skip Amaya M.D., Ph.D. [address] [place] [phone] 02/08/2025 2:15 PM CDT Clinical Communication Virtual Review in [place], [place] 200 [place] [phone] 02/09/2025 9:30 AM CDT Telemedicine Department of Oncology in [address] [phone] Jesica Wasserman M.B., B.Ch. [address] [place] [phone] Cecily Nash, L.I.C.S.W. [address] [place] [phone] 02/10/2025 12:00 PM CDT Lab Department of Infusion Therapy in [address] [phone] Skip Amaya M.D., Ph.D. [address] [place] [phone] 02/10/2025 2:30 PM CDT Office Visit Department of Oncology in [address] [phone] Rosenda Garza MPAS, P.A.-C. [address] [place] [phone] 02/11/2025 8:00 AM CDT Infusion Department of Oncology in [place], [place] [address] [place] [phone] Skip Amaya M.D., Ph.D. [address] [place] [phone] 02/23/2025 2:15 PM CDT Clinical Communication Virtual Review in [place], [place] 200 [place] [phone] 02/25/2025 8:30 AM CDT Lab Department of Oncology in [place], [place] [address] [place] [phone] Skip Amaya M.D., Ph.D. [address] [place] [phone] 02/25/2025 10:40 AM CDT Office Visit Department of Oncology in [place], [place] [address] [place] [phone] Sandy Judge, KASH, C.N.P., M.S. [address] [place] [phone] 02/25/2025 11:30 AM CDT Infusion Department of Oncology in [place], [place] [address] [place] [phone] Skip Amaya M.D., Ph.D. [address] [place] [phone] 03/04/2025 6:00 AM CDT Lab Department of Infusion Therapy in [place], [place] [address] [place] [phone] Skip Amaya M.D., Ph.D. [address] [place] [phone] 03/04/2025 8:10 AM CDT Office Visit Department of Oncology in [place], [place] [address] [place] [phone] Jie Shook P.A.-C. [address] [place] [phone] 03/04/2025 9:30 AM CDT Infusion Department of Oncology in [place], [place] [address] [place] [phone] Skip Amaya M.D., Ph.D. [address] [place] [phone] 03/10/2025 2:15 PM CDT Clinical Communication Virtual Review in [place], [place] 200 [place] [phone] 03/11/2025 6:00 AM CDT Lab Department of Laboratory Medicine and Pathology, [facility] in [place], [place] [address] [place] [phone] Skip Amaya M.D., Ph.D. [address] [place] [phone] 03/11/2025 7:20 AM CDT Office Visit Department of Oncology in [place], [place] [address] [place] [phone] Bipin Leal, John.-Jordy., M.S. [address] [place] [phone] 03/11/2025 8:00 AM CDT Infusion Department of Oncology in [place], [place] [address] [place] [phone] Skip Amaya M.D., Ph.D. [address] [place] [phone] 03/24/2025 11:20 AM CDT Lab Department of Infusion Therapy in [place], [place] [address] [place] [phone] Skip Amaya M.D., Ph.D. [address] [place] [phone] 03/24/2025 1:30 PM CDT Office Visit Department of Oncology in [place], [place] [address] [place] [phone] Skip Amaya M.D., Ph.D. [address] [place] [phone] 03/25/2025 7:00 AM CDT Infusion Department of Oncology in [place], [place] [address] [place] [phone] Skip Amaya M.D., Ph.D. [address] [place] [phone] 03/29/2025 2:30 PM CDT Clinical Communication Virtual Review in [place], [place] 200 [place] [phone] 04/01/2025 6:00 AM CDT Lab Department of Infusion Therapy in [place], [place] [address] [place] [phone] Skip Amaya M.D., Ph.D. [address] [place] [phone] 04/01/2025 8:20 AM CDT Office Visit Department of Oncology in [place], [place] [address] [place] [phone] Precious Hill M.D., Ph.D. [address] [place] [phone] 04/01/2025 9:00 AM CDT Infusion Department of Oncology in [place], [place] [address] [place] [phone] Skip Amaya M.D., Ph.D. [address] [place] [phone] 04/07/2025 11:00 AM CDT Lab Department of Infusion Therapy in [place], [place] [address] [place] [phone] Skip Amaya M.D., Ph.D. [address] [place] [phone] 04/07/2025 1:20 PM CDT Office Visit Department of Oncology in [address] [phone] Sandy Judge APRN, C.N.P., M.S. [address] [place] [phone] 04/08/2025 7:00 AM CDT Infusion Department of Oncology in [address] [phone] Skip Amaya M.D., Ph.D. [address] [place] [phone] 04/21/2025 7:15 AM CDT Clinical Communication Virtual Review in [place], [place] 200 [place] [phone] 04/22/2025 7:20 AM CDT Lab Department of Infusion Therapy in [place], [place] [address] [place] [phone] Skip Amaya M.D., Ph.D. [address] [place] [phone] 04/22/2025 9:20 AM CDT Office Visit Department of Oncology in [address] [phone] Sandy Judge APRN, C.N.P., M.S. [address] [place] [phone] 04/22/2025 10:30 AM CDT Infusion Department of Oncology in [place], [place] [address] [place] [phone] Skip Amaya M.D., Ph.D. [address] [place] [phone] Pending Results Name Type Priority Associated Diagnoses Date /Time EXT [facility] xT DNA And RNA Lab Routine Malignant Neoplasm Of Pancreas Tail (HCC) 01/26/2025 3:52 PM CDT documented as of this encounter Goals Goal Patient Goal Type Associated Problems Recent Progress Patient-Stated? Author Autogenerat ed Goal Care Plan Autogenerated Problem No Hedy Lees, RJustynN. documented as of this encounter Results * Aura [facility] xT, Tissue - Sent Out Lab (12/30/2024 12:57 PM CDT) Aura [facility] xT, Tis Collected, Sent to Reference Lab DEFAULT 01/25/2025 8:32 AM CDT [facility] Tissue (Other, Specify in Comments) 12/30/2024 12:57 PM CDT 01/25/2025 8:32 AM CDT us Skip Amaya M.D., Ph.D. LAB GENETIC TESTING Dana l Result [facility] [address] [place] [address], [facility] [address] [place] [address] documented in this encounter Visit Diagnoses Diagnosis Malignant Neoplasm Of Pancreas Tail (HCC)- Primary Mass Pancreas Depression Major One Episode Moderate (HCC) Hypertensive Chronic Kidney Disease With Stage 1 Through Stage 4 Chronic Kidney Disease, Or Unspecified Chronic Kidney Disease Ventricular Tachycardia Unspecified (HCC) Chronic Kidney Disease (CKD), Stage 3a Glomerular Filtration Rate (GFR) 45 To 59 (HCC) documented in this encounter Additional Health Concerns Active Problems Noted Date Diagnosed Date Autogenerated Problem 11/16/2024 Assessment Noted Time PHQ-9 Depression Total Score: 7 01/12/20 25 9:53 AM CDT documented as of this encounter Care Teams Clinical Application Manager Relationship Specialty Start Date End Date Elsewhere, Pcp PCP - General Internal Medicine 09/09/23 documented as of this encounter
--- OUTSIDE RECORDS SUMMARY | 2025-01-21 08:00 | XMS_ITS | Encounter Summary ---
Author Organization [facility] Address [address] [place] [address] Care Team Providers Care Carpet Measurer Name Role Phone Elsewhere, Pcp Primary Care Provider Unavailabl e Encounter Details Date Type Department Care Team (Late st Contact Info) Description 01/21/2025 8:00 AM CDT Lab Department of Oncology in [place], [place] [address] [place] [phone] Skip Amaya M.D., Ph.D. 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 Alcohol Use Standard Drinks/Week Comments Not Currently 1 (1 standard drink = 0.6 oz pur e alcohol) 0-1 drink per week [facility] Utilities Answer Date Recorded In the past 12 months has [employer] electric, gas, oil, or water company threatened [...] your living situation today? I have a [facility] place to live 12/23/2024 Education Answer Date Recorded What is the highest level of school you have completed or the highest degree you have received? Master's degree (e.g., MA, MS, Katelyn, MEd, HI TEACHER, KELLEE) 01/05/2025 Sex and Gender Information Value Date Recorded Sex Assigned at Male 09/10/2023 7:48 AM RUBBER CALENDER HELPER Legal Sex Male 10:11 PM RUBBER CALENDER HELPER Gender Identity Male 09/10/2023 7:48 AM RUBBER CALENDER HELPER Sexual Orientation Straight 09/10/2023 7: 48 AM RUBBER CALENDER HELPER documented as of this encounter Plan of Treatment Upcoming Encounters Date Type Department Care Team (Latest Contact Info) Description 02/04/2025 7:00 AM CDT Lab Department of Infusion Therapy in [place], [place] [address] [place] [phone] Skip Amaya M.D., Ph.D. [address] [place] [phone] 02/04/2025 8:20 AM CDT Office Visit Department of Oncology in [place], [place] [address] [place] [phone] Jag Frye, KASH, C.N.P., D.N.P. [address] [place] [phone] 02/04/2025 2:00 PM CDT Infusion Department of Oncology in [place], [place] [address] [place] [phone] Skip Amaya M.D., Ph.D. [address] [place] [phone] 02/08/2025 2:15 PM CDT Clinical Communication Virtual Review in [place], [place] 200 [place] [phone] 02/09/2025 9:30 AM CDT Telemedicine Department of Oncology in [address] [phone] Jesica Wasserman M.B., B.Ch. [address] [place] [phone] Cecily Nash L.I.C.S.W. [address] [place] [phone] 02/10/2025 12:00 PM CDT Lab Department of Infusion Therapy in [address] [phone] Skip Amaya M.D., Ph.D. [address] [place] [phone] 02/10/2025 2:30 PM CDT Office Visit Department of Oncology in [address] [phone] Rosenda Garza MPAS, P.A.-C. [address] [place] [phone] 02/11/2025 8:00 AM CDT Infusion Department of Oncology in [address] [phone] Skip Amaya M.D., Ph.D. [address] [place] [phone] 02/23/2025 2:15 PM CDT Clinical Communication Virtual Review in [place], [place] 200 [place] [address] 02/25/2025 8:30 AM CDT Lab Department of Oncology in [place], [place] [address] [place] [phone] Skip Amaya M.D., Ph.D. [address] [place] [phone] 02/25/2025 10:40 AM CDT Office Visit Department of Oncology in [address] [phone] Sandy Judge APRN, C.N.P., M.S. [address] [place] [phone] 02/25/2025 11:30 AM CDT Infusion Department of Oncology in [address] [phone] Skip Amaya M.D., Ph.D. [address] [place] [phone] 03/04/2025 6:00 AM CDT Lab Department of Infusion Therapy in [address] [phone] Skip Amaya M.D., Ph.D. [address] [place] [phone] 03/04/2025 8:10 AM CDT Office Visit Department of Oncology in [address] [phone] Jie Shook P.A.-C. [address] [place] [phone] 03/04/2025 9:30 AM CDT Infusion Department of Oncology in [address] [phone] Skip Amaya M.D., Ph.D. [address] [place] [phone] 03/10/2025 2:15 PM CDT Clinical Communication Virtual Review in [place], [place] 200 [place] [address] 03/11/2025 6:00 AM CDT Lab Department of Laboratory Medicine and Pathology, [facility] in [place], [place] [address] [place] [phone] Skip Amaya M.D., Ph.D. [address] [place] [phone] 03/11/2025 7:20 AM CDT Office Visit Department of Oncology in [place], [place] [address] [place] [phone] Bipin Leal P.A.-C., M.S. [address] [place] [phone] 03/11/2025 8:00 AM CDT Infusion Department of Oncology in [place], [place] [address] [place] [phone] Skip Amaya M.D., Ph.D. [address] [place] [phone] 03/24/2025 11:20 AM CDT Lab Department of Infusion Therapy in [place], [place] [address] [place] [phone] Skip Amaya M.D., Ph.D. [address] [place] [phone] 03/24/2025 1:30 PM CDT Office Visit Department of Oncology in [place], [place] [address] [place] [phone] Skip Amaya M.D., Ph.D. [address] [place] [phone] 03/25/2025 7:00 AM CDT Infusion Department of Oncology in [place], [place] [address] [place] [phone] Skip Amaya M.D., Ph.D. [address] [place] [phone] 03/29/2025 2:30 PM CDT Clinical Communication Virtual Review in [place], [place] 200 [place] [address] 04/01/2025 6:00 AM CDT Lab Department of Infusion Therapy in [address] [phone] Skip Amaya M.D., Ph.D. [address] [place] [phone] 04/01/2025 8:20 AM CDT Office Visit Department of Oncology in [address] [phone] Precious Hill M.D., Ph.D. [address] [place] [phone] 04/01/2025 9:00 AM CDT Infusion Department of Oncology in [address] [phone] Skip Amaya M.D., Ph.D. [address] [place] [phone] 04/07/2025 11:00 AM CDT Lab Department of Infusion Therapy in [address] [phone] Skip Amaya M.D., Ph.D. [address] [place] [phone] 04/07/2025 1:20 PM CDT Office Visit Department of Oncology in [place], [place] [address] [place] [phone] Sandy Judge APRN, C.N.Bhavin., M.S. [address] [place] [phone] 04/08/2025 7:00 AM CDT Infusion Department of Oncology in [place], [place] [address] [place] [phone] Skip Amaya M.D., Ph.D. [address] [place] [phone] 04/21/2025 7:15 AM CDT Clinical Communication Virtual Review in [place], [place] 200 [place] [address] 04/22/2025 7:20 AM CDT Lab Department of Infusion Therapy in [address] [phone] Skip Amaya M.D., Ph.D. [address] [place] [phone] 04/22/2025 9:20 AM CDT Office Visit Department of Oncology in [place], [place] [address] [place] [phone] Sandy Judge APRN, Jordy.N.Bhavin., M.S. [address] [place] [phone] 04/22/2025 10:30 AM CDT Infusion Department of Oncology in [address] [phone] Skip Amaya M.D., Ph.D. [address] [place] [phone] documented as of this encounter Goals Goal Patient Goal Type Associated Problems Recent Progress Patient-Stated? Author Autogenerat ed Goal Care Plan Autogenerated Problem No Hedy Lees, RJustynN. documented as of this encounter Procedures Procedure Name Priority Date/Time Associated Diagnosis Comments ACTIVATED PARTIAL THROMBOPLASTIN TIME (APTT), P Routine 01/21/2025 7:52 AM CDT Malignant Neoplasm Of Pancreas Tail (HCC) PROTHROMBIN TIME (PT), P Routine 01/21/2025 7:52 AM CDT Malignant Neoplasm Of Pancreas Tail (HCC) CARBOHYDRATE AG 19-9 (CA 19-9), S Routine 01/21/2025 7:51 AM CDT Malignant Neoplasm Of Pancreas Tail (HCC) CBC WITH DIFFERENTIAL, B Routine 01/21/2025 7:51 AM CDT Malignant Neoplasm Of Pancreas Tail (HCC) PHOSPHORUS (INORGANIC), S Routine 01/21/2025 7:51 AM CDT Malignant Neoplasm Of Pancreas Tail (HCC) MAGNESIUM, S Routine 01/21/2025 7:51 AM CDT Malignant Neoplasm Of Pancreas Tail (HCC) LACTATE DEHYDROGENASE (LD), S Routine 01/21/2025 7:51 AM CDT Malignant Neoplasm Of Pancreas Tail (HCC) COMPREHENSIVE METABOLIC PANEL, S/P Routine 01/21/2025 7:51 AM CDT Malignant Neoplasm Of Pancreas Tail (HCC) documented in this encounter Results * APTT (Activated Partial Thromboplastin Time) (01/21/2025 7:52 AM CDT) Activated Partial Thrombopl Time, P 27 25 - 37 sec 01/21/2025 8:43 AM CDT DTL Blood (Blood, Venous) 01/21/2025 7:52 AM CDT 01/21/2025 8:21 AM CDT Skip Amaya M.D., Ph.D. LAB BLOOD ADD-ON Final R esult Performing Organization Address City/[facility] Co de Phone Number [facility] [address] [facility] 200 [place] [address] * Prothrombin Time (PT) (01/21/2025 7:52 AM CDT) Prothrombin Time, P 11.5 9.4 - 12.5 sec 01/21/2025 8:43 AM CDT DTL INR 1.0 0.9 - 1.1 01/21/2025 8:43 AM CDT DTL Comment: ----ADDITIONAL INFORMATION---- Standard intensity warfarin therapeutic range: 2.0 to 3.0 High intensity warfarin therapeutic range: 2.5 to 3.5 Blood (Blood, Venous) 01/21/2025 7:52 AM CDT 01/21/2025 8:21 AM CDT Skip Amaya M.D., Ph.D. LAB BLOOD ADD-ON Final R esult Performing Organization Address [facility] Co de Phone Number [facility] 200 [place] [address], [facility] 200 [place] [address] * Phosphorus Inorganic (01/21/2025 7:51 AM CDT) Phosphorus (Inorganic), S 3.5 2.5 - 4.5 mg/dL 01/21/2025 8:57 AM CDT DTL Blood (Blood, Venous) 01/21/2025 7:51 AM CDT 01/21/2025 8:21 AM CDT us Skip Amaya M.D., Ph.D. LAB BLOOD ADD-ON Final R esult Performing Organization Address City/[facility]/ZIP Co de Phone Number [facility] 200 [place] [address], [facility] 200 [place] [address] * Magnesium (01/21/2025 7:51 AM CDT) [facility] Magnesium, S 2.1 1.7 - 2.3 mg/dL 01/21/2025 8:57 AM CDT DTL Blood (Blood, Venous) 01/21/2025 7:51 AM CDT 01/21/2025 8:21 AM CDT us Skip Amaya M.D., Ph.D. LAB BLOOD ADD-ON Final R esult [facility] 200 [place], [place] [phone] [place] [address] 200 [place] [address] * LD (Lactate Dehydrogenase) (01/21/2025 7:51 AM CDT) [facility] LD 144 122 - 222 U/L 01/21/2025 9:14 AM CDT DTL Blood (Blood, Venous) 01/21/2025 7:51 AM CDT 01/21/2025 8:20 AM CDT us Skip Amaya M.D., Ph.D. LAB BLOOD NON ADD-ON Fin al Result [facility] 200 [place], [place] [phone] [place] [address] 200 [place] [address] * (ABNORMAL) Comprehensive Metabolic Panel (01/21/2025 7:51 AM CDT) [facility] Potassium, S 4.2 3.6 - 5.2 mmol/L 01/21/2025 8:57 AM CDT DTL Sodium, S 140 135 - 145 mmol/L 01/21/2025 8:57 AM CDT DTL Chloride, S 104 98 - 107 mmol/L 01/21/2025 8:57 AM CDT DTL Bicarbonate, S 25 22 - 29 mmol/L 01/21/2025 8:57 AM CDT DTL Anion Gap 11 7 - 15 01/21/2025 8:57 AM CDT DTL BUN (Blood Urea Nitrogen), S 13 8 - 24 mg/dL 01/21/2025 8:57 AM CDT DTL Creatinine 1.34 0.74 - 1.35 mg/dL 01/21/2025 8:57 AM CDT DTL Estimated GFR (eGFR) 57(L) >=60 mL/min/BS A 01/21/2025 8:57 AM CDT DTL Comment: Estimated GFR calculated using the 2020 CKD_EPI creatinine equation. Calcium, Total, S 9.0 8.8 - 10.2 mg/dL 01/21/2025 8:57 AM CDT DTL Glucose, S 94 70 - 140 mg/dL 01/21/2025 8:57 AM CDT DTL Protein, Total, S 6.2(L) 6.3 - 7.9 g/dL 01/21/2025 8:57 AM CDT DTL Albumin, S 4.1 3.5 - 5.0 g/dL 01/21/2025 8:57 AM CDT DTL Aspartate Aminotransferase (AST), S 33 8 - 48 U/L 01/21/2025 8:57 AM CDT DTL Alkaline Phosphatase, S 200(H) 40 - 129 U/L 01/21/2025 8:57 AM CDT DTL Alanine Aminotransferase (ALT), S 36 7 - 55 U/L 01/21/2025 8:57 AM CDT DTL Bilirubin, Total, S 0.6 0.0 - 1.2 mg/dL 01/21/2025 8:57 AM CDT DTL Blood (Blood, Venous) 01/21/2025 7:51 AM CDT 01/21/2025 8:21 AM CDT us Skip Amaya M.D., Ph.D. LAB BLOOD ADD-ON Final R esult [facility] [address] [place] [address], [facility] DTL [facility] [address] [address] * (ABNORMAL) CBC with Differential, Blood (01/21/2025 7:51 AM CDT) Hemoglobin 13.5 13.2 - 16.6 g/dL 01/21/2025 8:49 AM CDT DTL Hematocrit 41.9 38.3 - 48.6 % 01/21/2025 8:49 AM CDT DTL Erythrocytes 4.58 4.35 - 5.65 x10(12)/L 01/21/2025 8:49 AM CDT DTL MCV 91.5 78.2 - 97.9 fL 01/21/2025 8:49 AM CDT DTL RBC Distrib Width 13.5 11.8 - 14.5 % 01/21/2025 8:49 AM CDT DTL Platelet Count 172 135 - 317 x10(9)/L 01/21/2025 8:49 AM CDT DTL Leukocytes 10.5(H) 3.4 - 9.6 x10(9)/L 01/21/2025 8:49 AM CDT DTL Neutrophils 7.45(H) 1.56 - 6.45 x10(9)/L 01/21/2025 8:49 AM CDT DHPM Lymphocytes 2.00 0.95 - 3.07 x10(9)/L 01/21/2025 8:49 AM CDT DTL Monocytes 0.69 0.26 - 0.81 x10(9)/L 01/21/2025 8:49 AM CDT DTL Eosinophils 0.25 0.03 - 0.48 x10(9)/L 01/21/2025 8:49 AM CDT DTL Basophils 0.06 0.01 - 0.08 x10(9)/L 01/21/2025 8:49 AM CDT DTL Blood (Blood, Venous) 01/21/2025 7:51 AM CDT 01/21/2025 8:21 AM CDT us Skip Amaya M.D., Ph.D. LAB BLOOD ADD-ON Final R esult Performing Organization Address City/[facility]/ZIP Co de Phone Number [facility] [address] [place] [address], [place] DTL [facility] [address] [place] [address] [facility] [address] [place] [address] * (ABNORMAL) Carbohydrate Antigen 19-9 (CA 19-9) (01/21/2025 7:51 AM CDT) Carbohydrate Ag 19-9, S 83967(H) <35 U/mL 01/21/2025 1:01 PM CDT [facility] Comment: ----ADDITIONAL INFORMATION---- The testing method is an immunoenzymatic assay manufactured by [employer]. and performed on the [employer] DxI 800. Values obtained with different assay methods or kits may be different and cannot be used interchangeably. Test results cannot be interpreted as absolute evidence for the presence or absence of malignant disease. Blood (Blood, Venous) 01/21/2025 7:51 AM CDT 01/21/2025 11:31 AM CDT Skip Amaya M.D., Ph.D. LAB BLOOD ADD-ON Final R esult Performing Organization Address City/[facility] Co de Phone Number [facility] [address] [place] [address] [facility] [address] 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 5 mL (500 units) of Heparin 100 units/mL to each port/lumen. When IVAD not accessed or infusing: When no infusion to maintain patency flush every 28 days following NaCL flush. 5 mL (500 units) of Heparin 100 units/mL to each port/lumen.Indications:Malignan t Neoplasm Of Pancreas Tail (HCC) Given 01/21/2025 7:54 AM CDT 500 Units sodium chloride 0.9 % injection 10-20 mL 10-20 mL, intra-catheter, As needed, line care, Starting on Fri01/21/25 at 0732, When IVAD accessed and infusing: Flush prior to and following infusion, between multiple consecutive infusions. 10 mL to each port/lumen.Indications:Malignan t Neoplasm Of Pancreas Tail (HCC) Given 01/21/2025 7:54 AM CDT 10 mL documented in this encounter Additional Health Concerns Active Problems Noted Date Diagnosed Date Autogenerated Problem 11/16/2024 Assessment Noted Time PHQ-9 Depression Total Score: 7 01/12/20 25 9:53 AM CDT documented as of this encounter Care Teams Carpet Measurer Relationship Specialty Start Date End Date Elsewhere, Pcp PCP - General Internal Medicine 09/09/23 documented as of this encounter
--- OUTSIDE RECORDS SUMMARY | 2025-01-21 08:15 | XMS_ITS | Encounter Summary ---
Author Organization [facility] Address [address] [place] [id number] Care Team Providers Care Web Content Director Name Role Phone Elsewhere, Pcp Primary Care Provider Unavailabl e Reason for Referral * MRI/CAT/PET Scan (Routine) - Closed Specialty Diagnoses / Procedures Referred By Contac t Referred To Contact Radiology Diagnoses Malignant Neoplasm Of Pancreas Tail (HCC) Procedures CT Abdomen Pelvis with IV Contrast Skip Amaya M.D., Ph.D. [address] [place] [phone] Phone: tel: fax: [facility] Referral ID Status Reason Start Date Expiration Date Visits Re quested Visits Authorized [id number] Closed 01/19/2025 04/21/2026 1 1 * MRI/CAT/PET Scan (Routine) - Closed Specialty Diagnoses / Procedures Referred By Contac t Referred To Contact Radiology Diagnoses Malignant Neoplasm Of Pancreas Tail (HCC) Procedures CT Chest with IV Contrast Skip Amaya M.D., Ph.D. [address] [place] [phone] Phone: tel: fax: [facility] Referral ID Status Reason Start Date Expiration Date Visits Re quested Visits Authorized [id number] Closed 01/19/2025 04/21/2026 1 1 * MRI/CAT/PET Scan (Routine) - Closed Specialty Diagnoses / Procedures Referred By Meeta carlisle Referred To Contact Radiology Diagnoses Malignant Neoplasm Of Pancreas Tail (HCC) Procedures CT Head without and with IV Contrast Skip Amaya M.D., Ph.D. [address] [place] [phone] Phone: tel: fax: [facility] Referral ID Status Reason Start Date Expiration Date Visits Re quested Visits Authorized [id number] Closed 01/19/2025 04/21/2026 1 1 Reason for Visit * MRI/CAT/PET Scan (Routine) - Closed Specialty Diagnoses / Procedures Referred By Meeta carlisle Referred To Contact Radiology Diagnoses Malignant Neoplasm Of Pancreas Tail (HCC) Procedures CT Abdomen Pelvis with IV Contrast Skip Amaya M.D., Ph.D. [address] [place] [phone] Phone: tel: fax: [facility] Referral ID Status Reason Start Date Expiration Date Visits Re quested Visits Authorized [id number] Closed 01/19/2025 04/21/2026 1 1 Encounter Details Date Type Department Care Team (Latest Contact Info) Description 01/21/2025 8:15 AM CDT - 01/21/2025 11:59 PM CDT Hospital Encounter Department of Radiology, [facility], in [place], [place] 200 [place] [address] Skip Amaya M.D., Ph.D. [address] [place] [phone] Malignant Neoplasm Of Pancreas Tail (HCC) Discharge Disposition: Home or Self Care Social History Tobacco Use Types Packs/Day Years Used Date Smoking Tobacco: Never Passive Smoke Exposure: Past Smokeless Tobacco: Never Passive Exposure Comments:Ch ildhood exposure. Alcohol Use Standard Drinks/Week Comments Not Currently 1 (1 standard drink = 0.6 oz pur e alcohol) 0-1 drink per week [facility] Utilities Answer Date Recorded In the past 12 months has e Appreciation Engine, gas, oil, or water company threatened to [...] your living situation today? I have a [facility] place to live 12/23/2024 Education Answer Date Recorded What is the highest level of school you have completed or the highest degree you have received? Master's degree (e.g., MA, MS, Katelyn, MEd, MANUFACTURING SPECIALIST, KELLEE) 01/05/2025 Sex and Gender Information Value Date Recorded Sex Assigned at Male 09/10/2023 7:48 AM RADIOLOGY RN Legal Sex Male 10:11 PM RADIOLOGY RN Gender Identity Male 09/10/2023 7:48 AM RADIOLOGY RN Sexual Orientation Straight 09/10/2023 7: 48 AM RADIOLOGY RN documented as of this encounter Medications at [...] CDT Lab Department of Infusion Therapy in [place], [place] [address] [place] [phone] Skip Amaya M.D., Ph.D. [address] [place] [phone] 02/04/2025 8:20 AM CDT Office Visit Department of Oncology in [place], [place] [address] [place] [phone] Jag Frye, KASH, C.N.P., D.N.P. [address] [place] [phone] 02/04/2025 2:00 PM CDT Infusion Department of Oncology in [place], [place] [address] [place] [phone] Skip Amaya M.D., Ph.D. [address] [place] [phone] 02/08/2025 2:15 PM CDT Clinical Communication Virtual Review in [place], [place] 200 [place] [phone] 02/09/2025 9:30 AM CDT Telemedicine Department of Oncology in [address] [phone] Jesica Wasserman M.B., B.Ch. [address] [place] [phone] Cecily Nash L.I.C.S.W. [address] [place] [phone] 02/10/2025 12:00 PM CDT Lab Department of Infusion Therapy in [address] [phone] Skip Amaya M.D., Ph.D. [address] [place] [phone] 02/10/2025 2:30 PM CDT Office Visit Department of Oncology in [address] [phone] Rosenda Garza MPAS, P.A.-C. [address] [place] [phone] 02/11/2025 8:00 AM CDT Infusion Department of Oncology in [address] [phone] Skip Amaya M.D., Ph.D. [address] [place] [phone] 02/23/2025 2:15 PM CDT Clinical Communication Virtual Review in [place], [place] 200 [place] [address] 02/25/2025 8:30 AM CDT Lab Department of Oncology in [place], [place] [address] [place] [phone] Skip Amaya M.D., Ph.D. [address] [place] [phone] 02/25/2025 10:40 AM CDT Office Visit Department of Oncology in [address] [phone] Sandy Judge APRN, C.N.P., M.S. [address] [place] [phone] 02/25/2025 11:30 AM CDT Infusion Department of Oncology in [address] [phone] Skip Amaya M.D., Ph.D. [address] [place] [phone] 03/04/2025 6:00 AM CDT Lab Department of Infusion Therapy in [address] [phone] Skip Amaya M.D., Ph.D. [address] [place] [phone] 03/04/2025 8:10 AM CDT Office Visit Department of Oncology in [address] [phone] Jie Shook P.A.-C. [address] [place] [phone] 03/04/2025 9:30 AM CDT Infusion Department of Oncology in [place], [place] [address] [place] [phone] Skip Amaya M.D., Ph.D. [address] [place] [phone] 03/10/2025 2:15 PM CDT Clinical Communication Virtual Review in [place], [place] 200 [place] [address] 03/11/2025 6:00 AM CDT Lab Department of Laboratory Medicine and Pathology, [facility] in [place], [place] [address] [place] [phone] Skip Amaya M.D., Ph.D. [address] [place] [phone] 03/11/2025 7:20 AM CDT Office Visit Department of Oncology in [address] [phone] Bipin Leal P.A.-C., M.S. [address] [place] [phone] 03/11/2025 8:00 AM CDT Infusion Department of Oncology in [address] [phone] Skip Amaya M.D., Ph.D. [address] [place] [phone] 03/24/2025 11:20 AM CDT Lab Department of Infusion Therapy in [address] [phone] Skip Amaya M.D., Ph.D. [address] [place] [phone] 03/24/2025 1:30 PM CDT Office Visit Department of Oncology in [place], [place] [address] [place] [phone] Skip Amaya M.D., Ph.D. [address] [place] [phone] 03/25/2025 7:00 AM CDT Infusion Department of Oncology in [place], [place] [address] [place] [phone] Skip Amaya M.D., Ph.D. [address] [place] [phone] 03/29/2025 2:30 PM CDT Clinical Communication Virtual Review in [address] [phone] 04/01/2025 6:00 AM CDT Lab Department of Infusion Therapy in [place], [place] [address] [place] [phone] Skip Amaya M.D., Ph.D. [address] [place] [phone] 04/01/2025 8:20 AM CDT Office Visit Department of Oncology in [address] [phone] Precious Hill M.D., Ph.D. [address] [place] [phone] 04/01/2025 9:00 AM CDT Infusion Department of Oncology in [address] [phone] Skip Amaya M.D., Ph.D. [address] [place] [phone] 04/07/2025 11:00 AM CDT Lab Department of Infusion Therapy in [place], [place] [address] [place] [phone] Skip Amaya M.D., Ph.D. [address] [place] [phone] 04/07/2025 1:20 PM CDT Office Visit Department of Oncology in [place], [place] [address] [place] [phone] Sandy Judge APRN, C.N.P., M.S. [address] [place] [phone] 04/08/2025 7:00 AM CDT Infusion Department of Oncology in [place], [place] [address] [place] [phone] Skip Amaya M.D., Ph.D. [address] [place] [phone] 04/21/2025 7:15 AM CDT Clinical Communication Virtual Review in [place], [place] 200 [place] [address] 04/22/2025 7:20 AM CDT Lab Department of Infusion Therapy in [place], [place] [address] [place] [phone] Skip Amaya M.D., Ph.D. [address] [place] [phone] 04/22/2025 9:20 AM CDT Office Visit Department of Oncology in [place], [place] [address] [place] [phone] Sandy Judge APRN, C.N.P., M.S. [address] [place] [phone] 04/22/2025 10:30 AM CDT Infusion Department of Oncology in [place], [place] [address] [place] [address] Skip Amaya M.D., Ph.D. [address] [place] [phone] documented as of this encounter Goals Goal [...] head CT without contrast dated 02/08/2024 and [facility] head CT dated 11/27/2023. FINDINGS: The noncontrast [...] without contrast dated 02/08/2024 and [facility] head CT dated 11/27/2023. FINDINGS: The [...] documented as of this encounter Care Teams Web Content Director Relationship Specialty Start Date End Date Elsewhere, Pcp PCP - General Internal Medicine 09/09/23 documented as of this encounter
--- OUTSIDE RECORDS SUMMARY | 2025-01-25 13:20 | XMS_ITS | Encounter Summary ---
Author Organization [facility] Address [address] [place] [phone] Care Team Providers Care Correctional Lieutenant Name Role Phone Elsewhere, Pcp Primary Care Provider Unavailabl e Reason for Visit * Outpatient (Routine) - Closed Specialty Diagnoses / Procedures Referred By Meeta carlisle Referred To Contact Oncology Diagnoses Malignant Neoplasm Of Pancreas Tail (HCC) Skip Amaya M.D., Ph.D. [address] [place] [phone] Phone: tel: fax: [facility] Referral ID Status Reason Start Date Expiration Date Visits Re quested Visits Authorized [id number] Closed 01/20/2025 07/22/2026 1 1 Encounter Details Date Type Department Care Team ([facility] st Contact Info) Description 01/25/2025 1:20 PM CDT Office Visit Department of Oncology in [place], [place] [address] [place] [phone] Precious Hill M.D., Ph.D. [address] [place] [address] [phone] 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); Secondary Malignant Neoplasm Liver (HCC) Social History Tobacco Use Types Packs/Day Years Used Date Smoking Tobacco: Never Passive Smoke Exposure: Past Smokeless Tobacco: Never Passive Exposure Comments:Ch ildhood exposure. Alcohol Use Standard Drinks/Week Comments Not Currently 1 (1 standard drink = 0.6 oz pur e alcohol) 0-1 drink per week [facility] Utilities Answer Date Recorded In the past [...] your living situation today? I have a [facility] place to live 12/23/2024 Education Answer Date Recorded What is the highest level of school you have completed or the highest degree you have received? Master's degree (e.g., MA, MS, Katelyn, MEd, MEDICINE TEACHER, KELLEE) 01/05/2025 Sex and Gender Information Value Date Recorded Sex Assigned at Male 09/10/2023 7:48 AM LPN MEDICAL ASSISTANT Legal Sex Male 10:11 PM LPN MEDICAL ASSISTANT Gender Identity Male 09/10/2023 7:48 AM LPN MEDICAL ASSISTANT Sexual Orientation Straight 09/10/2023 7: 48 AM LPN MEDICAL ASSISTANT documented as of this encounter Last Filed Vital Signs Vital Sign Reading Time Taken Comments Blood Pressure 134/63 01/25/2025 1:18 PM CDT Pulse 41 01/25/2025 1:40 PM CDT Temperature 36.3 C (97.3 F) 01/25/2025 1:18 PM CDT Respiratory Rate 16 01/25/2025 1:18 PM CDT Oxygen Saturation 100% 01/25/2025 1:18 PM CDT Inhaled Oxygen Concentration - - Weight 94.8 kg (208 lb 15.9 oz) 01/25/2025 1:18 PM CDT Height 180 cm (5' 10.87) 01/25/2025 1:18 PM CDT Body Mass Index 29.26 01/25/2025 1:18 PM CDT documented in this encounter Progress Notes * Precious Hill M.D., Ph.D. - 01/25/2025 1:20 PM CDT SUBJECTIVE LOCAL ONCOLOGIST No care team sports sales associate to display PRIMARY ANDERSON ONCOLOGIST Jesica Wasserman M.B., B.Ch. Skip Amaya M.D., Ph.D. CHIEF COMPLAINT / REASON FOR VISIT Noel Mata is a 69 y.o. male who presents for follow-up of metastatic pancreatic adenocarcinoma. HISTORY OF PRESENT ILLNESS Oncology History Oncology History Overview Note December 21, 2024 [...] in 2024; Multi-Cancer + RNA panel through [facility]. No pathogenic variants identified. 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 01/28/2025 - Research Study Participant Research Study: Study of Quemliclustat and Chemotherapy Versus Placebo and Chemotherapy in PatientsWith Metastatic Pancreatic Ductal Adenocarcinoma ([id number]) Treatment Protocol: [facility] PRISM-1 ( Quemliclustat (AB680) or Placebo / PACLitaxel PROTEIN BOUND / Gemcitabine ) [facility] was used for documentation of the research nurse visit. I independently confirmed and elaborated on these findings. Interval history: History of Present Illness Mr. Noel Mata is a 69 year old male who presents for a screening visit for the PRISM study. He is seen today in the company of his . No new symptom concerns since his initial consultation. He continues to have upper abdominal pain for which he is using oxycodone as needed. His energy level is low compared to baseline, but he remains functionally independent. At baseline, he has peripheral neuropathy affecting his feet. He has a history of essential tremor for which he has a deep brain stimulator. This has been a veryeffective therapy for him, and tremor is now well-controlled. No shortness of breath or chest pain. He has a history of coronary artery disease with stenting in 2017. He is on aspirin and a statin, but is not on any medications that affect heart rate. He is noted to have frequent PVCs. Past medical history is otherwise significant for depression, managed with escitalopram and bupropion Medications and allergies reviewed. OBJECTIVE BP 134/63 (BP Location: Left arm, Patient Position: Sitting, Cuff Size: Regular) Pulse (!) 41 Temp 36.3 ??C (Temporal) Resp 16 Ht 180 cm Wt 94.8 kg SpO2 100% BMI 29.26 kg/m?? PHYSICAL EXAMINATION General: Patient is alert and conversant, in no acute distress. Ambulates on and off the exam tablewithout difficulty. Skin: Scaling skin lesions on lower extremities, noted to be chronic by the patient. No jaundice. Port site in the right chest. Deep brain stimulator implanted in the left chest. Eyes: no scleral icterus. ENT: Moist oral mucosa, no mucositis or oral lesions noted. Lymph: No cervical or supraclavicular lymphadenopathy palpated. Heart: Heart rate 60 beats per minute by manual confirmation. Heart rate is irregular. Noted prior EKG showing frequent PVCs. Lungs: Breathing comfortably on room air. Lungs clear to auscultation bilaterally. Abdomen: Soft, mildly tender to palpation in the epigastrium, non-distended, no ascites or hepatosplenomegaly noted. Mental Status: Answering all questions appropriately, normal affect. Neurologic: Grossly non-focal. Known essential tremor is minimal. Extremities: No lower extremity edema. LABORATORY DATA Lab data reviewed. RADIOLOGICAL DATA CT Head without and with IV Contrast Result Date: 01/21/2025 Impression: Stable bilateral DBS leads. Remainder negative. CT Chest with IV Contrast Result Date: 01/21/2025 Impression: 1. Several small pulmonary nodules, some have enlarged since he 02/18/[address] Abdomen Pelvis with IV Contrast Result Date: 01/21/2025 Impression: 1. Since 12/28/2024, no substantial change in [...] No substantial change in upper abdominal lymphadenopathy. IR Implanted Vascular Access Device Placement Result Date: 01/18/2025 Impression: Insertion of right internal jugular vein subcutaneous PowerPort with non-valved open-ended catheter tip. Of note, this port requires hep-locking with 100 u/mL heparin after each use. ASSESSMENT / PLAN Metastatic adenocarcinoma of the pancreatic tail (pMMR, pending molecular profile) Mr. Noel Mata is a 69 year-old from [place], [place] with metastatic pancreatic cancer, here today for screening for the PRISM-1 clinical trial of gemcitabine/Nab paclitaxel plus Quemliclustat versus placebo. We reviewed his baseline CT and screening tests. There was initial concern regarding his QTC, but in the setting of PVCs this was manually recalculated to be within eligibility criteria. On rooming vitals he was noted to be bradycardic, but on manual recheck heart rate is low normal. We spent some time discussing the uncertainty and anxiety of waiting to start treatment. He may benefit from additional social work or mental health support during his cancer journey. His initial treatment on the clinical trial is scheduled for this Friday, 01/28. He will follow up per the clinical trial schedule. Tempus xT is pending. Cancer Staging Malignant Neoplasm Of Pancreas Tail (HCC) Staging form: Exocrine Pancreas, AJCC 8th Edition - Clinical stage from 12/30/2024: Stage IV (pM1) Current Therapy: [facility] PRISM-1 ( Quemliclustat (AB680) or Placebo / PACLitaxel PROTEIN BOUND / Gemcitabine ) Current Disease Status: Not able to assess (baseline visit) Intent of Therapy: Palliative ECOG Performance Status: 0 Intent to Change Therapy: No ADMINISTRATIVE BILLING I spent 40 minutes face to face and non-face to face caring for the patient today. documented in this encounter Plan of Treatment Upcoming Encounters Date Type Department Care Team (Latest Contact Info) Description 02/04/2025 7:00 AM CDT Lab Department of Infusion Therapy in [place], [place] [address] [place] [phone] Skip Amaya M.D., Ph.D. [address] [place] [phone] 02/04/2025 8:20 AM CDT Office Visit Department of Oncology in [place], [place] [address] [place] [phone] Jag Frye, KASH, C.N.P., D.N.P. [address] [place] [phone] 02/04/2025 2:00 PM CDT Infusion Department of Oncology in [place], [place] [address] [place] [phone] Skip Amaya M.D., Ph.D. [address] [place] [phone] 02/08/2025 2:15 PM CDT Clinical Communication Virtual Review in [place], [place] 200 [place] [phone] 02/09/2025 9:30 AM CDT Telemedicine Department of Oncology in [address] [phone] Jesica Wasserman M.B., B.Ch. [address] [place] [phone] Cecily Nash L.I.C.S.W. [address] [place] [phone] 02/10/2025 12:00 PM CDT Lab Department of Infusion Therapy in [place], [place] [address] [place] [phone] Skip Amaya M.D., Ph.D. [address] [place] [phone] 02/10/2025 2:30 PM CDT Office Visit Department of Oncology in [place], [place] [address] [place] [phone] Rosenda Garza MPAS, P.A.-C. [address] [place] [phone] 02/11/2025 8:00 AM CDT Infusion Department of Oncology in [place], [place] [address] [place] [phone] Skip Amaya M.D., Ph.D. [address] [place] [phone] 02/23/2025 2:15 PM CDT Clinical Communication Virtual Review in [place], [place] 200 [place] [phone] 02/25/2025 8:30 AM CDT Lab Department of Oncology in [place], [place] [address] [place] [phone] Skip Amaya M.D., Ph.D. [address] [place] [phone] 02/25/2025 10:40 AM CDT Office Visit Department of Oncology in [place], [place] [address] [place] [phone] Sandy Judge, KASH, C.N.P., M.S. [address] [place] [phone] 02/25/2025 11:30 AM CDT Infusion Department of Oncology in [address] [phone] Skip Amaya M.D., Ph.D. [address] [place] [phone] 03/04/2025 6:00 AM CDT Lab Department of Infusion Therapy in [place], [place] [address] [place] [phone] Skip Amaya M.D., Ph.D. [address] [place] [phone] 03/04/2025 8:10 AM CDT Office Visit Department of Oncology in [place], [place] [address] [place] [phone] Jie Shook P.A.-C. [address] [place] [phone] 03/04/2025 9:30 AM CDT Infusion Department of Oncology in [address] [phone] Skip Amaya M.D., Ph.D. [address] [place] [phone] 03/10/2025 2:15 PM CDT Clinical Communication Virtual Review in [address] [phone] 03/11/2025 6:00 AM CDT Lab Department of Laboratory Medicine and Pathology, [facility], in [address] [phone] Skip Amaya M.D., Ph.D. [address] [place] [phone] 03/11/2025 7:20 AM CDT Office Visit Department of Oncology in [address] [phone] Bipin Leal P.A.-C., M.S. [address] [place] [phone] 03/11/2025 8:00 AM CDT Infusion Department of Oncology in [place], [place] [address] [place] [phone] Skip Amaya M.D., Ph.D. [address] [place] [phone] 03/24/2025 11:20 AM CDT Lab Department of Infusion Therapy in [place], [place] [address] [place] [phone] Skip Amaya M.D., Ph.D. [address] [place] [phone] 03/24/2025 1:30 PM CDT Office Visit Department of Oncology in [address] [phone] Skip Amaya M.D., Ph.D. [address] [place] [phone] 03/25/2025 7:00 AM CDT Infusion Department of Oncology in [address] [phone] Skip Amaya M.D., Ph.D. [address] [place] [phone] 03/29/2025 2:30 PM CDT Clinical Communication Virtual Review in [place], [place] 200 [place] [phone] 04/01/2025 6:00 AM CDT Lab Department of Infusion Therapy in [address] [phone] Skip Amaya M.D., Ph.D. [address] [place] [phone] 04/01/2025 8:20 AM CDT Office Visit Department of Oncology in [place], [place] [address] [place] [phone] Precious Hill M.D., Ph.D. [address] [place] [phone] 04/01/2025 9:00 AM CDT Infusion Department of Oncology in [place], [place] [address] [place] [phone] Skip Amaya M.D., Ph.D. [address] [place] [phone] 04/07/2025 11:00 AM CDT Lab Department of Infusion Therapy in [place], [place] [address] [place] [phone] Skip Amaya M.D., Ph.D. [address] [place] [phone] 04/07/2025 1:20 PM CDT Office Visit Department of Oncology in [place], [place] [address] [place] [phone] Sandy Judge, KASH, C.N.P., M.S. [address] [place] [phone] 04/08/2025 7:00 AM CDT Infusion Department of Oncology in [place], [place] [address] [place] [phone] Skip Amaya M.D., Ph.D. [address] [place] [phone] 04/21/2025 7:15 AM CDT Clinical Communication Virtual Review in [place], [place] 200 [place] [phone] 04/22/2025 7:20 AM CDT Lab Department of Infusion Therapy in [place], [place] [address] [place] [phone] Skip Amaya M.D., Ph.D. [address] [place] [phone] 04/22/2025 9:20 AM CDT Office Visit Department of Oncology in [place], [place] [address] [place] [phone] Sandy Judge APRN, C.N.P., M.S. [address] [place] [phone] 04/22/2025 10:30 AM CDT Infusion Department of Oncology in [place], [place] [address] [place] [phone] Skip Amaya M.D., Ph.D. [address] [place] [phone] documented as of this encounter Goals Goal Patient Goal Type Associated Problems Recent Progress Patient-Stated? Author Autogenerat ed Goal Care Plan Autogenerated Problem No Hedy Lees, RJustynNJustyn documented as of this encounter Visit Diagnoses Diagnosis Malignant Neoplasm Of Pancreas Tail (HCC)- Primary Secondary Malignant Neoplasm Liver (HCC) documented in this encounter Additional Health Concerns Active Problems Noted Date Diagnosed Date Autogenerated Problem 11/16/2024 Assessment Noted Time PHQ-9 Depression Total Score: 7 01/12/20 25 9:53 AM CDT documented as of this encounter Care Teams Correctional Lieutenant Relationship Specialty Start Date End Date Elsewhere, Pcp PCP - General Internal Medicine 09/09/23 documented as of this encounter
--- OUTSIDE RECORDS SUMMARY | 2025-01-25 15:00 | XMS_ITS | Encounter Summary ---
Author Organization [facility] Address [address] [place] [id number] Care Team Providers Care Director Medical Science Name Role Phone Elsewhere, Pcp Primary Care Provider Unavailabl e Reason for Visit * Outpatient (Routine) - Closed Specialty Diagnoses / Procedures Referred By Meeta carlisle Referred To Contact Oncology Skip Amaya M.D., Ph.D. [address] [place] [phone] Phone: tel: fax: [facility] Referral ID Status Reason Start Date Expiration Date Visits Re quested Visits Authorized [id number] Closed 01/23/2025 07/25/2026 1 1 Encounter Details Date Type Department Care Team ([facility] st Contact Info) Description 01/25/2025 3:00 PM CDT Patient [facility] in [place], [place] [address] [place] [phone] Skip Amaya M.D., Ph.D. [address] [place] [phone] Perla Chester Social History Tobacco Use Types Packs/Day Years Used Date Smoking Tobacco: Never Passive Smoke Exposure: Past Smokeless Tobacco: Never Passive Exposure Comments:Ch ildhood exposure. Alcohol Use Standard Drinks/Week Comments Not Currently 1 (1 standard drink = 0.6 oz pur e alcohol) 0-1 drink per week [facility] Utilities Answer Date Recorded In [...] your living situation today? I have a [facility] place to live 12/23/2024 Education Answer Date Recorded What is the highest level of school you have completed or the highest degree you have received? Master's degree (e.g., MA, MS, Katelyn, MEd, G[employer] COURSE MECHANIC, KELLEE) 01/05/2025 Sex and Gender Information Value Date Recorded Sex Assigned at Male 09/10/2023 7:48 AM CAB SUPERVISOR Legal Sex Male 10:11 PM CAB SUPERVISOR Gender Identity Male 09/10/2023 7:48 AM CAB SUPERVISOR Sexual Orientation Straight 09/10/2023 7: 48 AM CAB SUPERVISOR documented as of this encounter Plan of Treatment Upcoming Encounters Date Type Department Care Team (Latest Contact Info) Description 02/04/2025 7:00 AM CDT Lab Department of Infusion Therapy in [place], [place] 200 [place] [phone] Skip Amaya M.D., Ph.D. 200 [place] [phone] 02/04/2025 8:20 AM CDT Office Visit Department of Oncology in [place], [place] 200 [place] [phone] Jag Frye, KASH, C.N.P., D.N.P. [address] [place] [phone] 02/04/2025 2:00 PM CDT Infusion Department of Oncology in [place], [place] [address] [place] [phone] Skip Amaya M.D., Ph.D. [address] [place] [phone] 02/08/2025 2:15 PM CDT Clinical Communication Virtual Review in [place], [place] 200 [place] [phone] 02/09/2025 9:30 AM CDT Telemedicine Department of Oncology in [address] [phone] Jesica Wasserman M.B., B.Ch. [address] [place] [phone] Cecily Nash, John.I.C.S.W. [address] [place] [phone] 02/10/2025 12:00 PM CDT Lab Department of Infusion Therapy in [place], [place] [address] [place] [phone] Skip Amaya M.D., Ph.D. [address] [place] [phone] 02/10/2025 2:30 PM CDT Office Visit Department of Oncology in [place], [place] [address] [place] [phone] Rosenda Garza MPAS, P.A.-C. [address] [place] [phone] 02/11/2025 8:00 AM CDT Infusion Department of Oncology in [place], [place] [address] [place] [phone] Skip Amaya M.D., Ph.D. [address] [place] [phone] 02/23/2025 2:15 PM CDT Clinical Communication Virtual Review in [place], [place] 200 [place] [address] 02/25/2025 8:30 AM CDT Lab Department of Oncology in [place], [place] [address] [place] [phone] Skip Amaya M.D., Ph.D. [address] [place] [phone] 02/25/2025 10:40 AM CDT Office Visit Department of Oncology in [address] [phone] Sandy Judge, KASH, C.N.P., M.S. [address] [place] [phone] 02/25/2025 11:30 AM CDT Infusion Department of Oncology in [address] [phone] Skip Amaya M.D., Ph.D. [address] [place] [phone] 03/04/2025 6:00 AM CDT Lab Department of Infusion Therapy in [address] [phone] Skip Amaya M.D., Ph.D. [address] [place] [phone] 03/04/2025 8:10 AM CDT Office Visit Department of Oncology in [place], [place] [address] [place] [phone] Jie Shook P.A.-C. [address] [place] [phone] 03/04/2025 9:30 AM CDT Infusion Department of Oncology in [place], [place] [address] [place] [phone] Skip Amaya M.D., Ph.D. [address] [place] [phone] 03/10/2025 2:15 PM CDT Clinical Communication Virtual Review in [place], [place] 200 [place] [address] 03/11/2025 6:00 AM CDT Lab Department of Laboratory Medicine and Pathology, [facility] in [address] [phone] Skip Amaya M.D., Ph.D. [address] [place] [phone] 03/11/2025 7:20 AM CDT Office Visit Department of Oncology in [address] [phone] Bipin Leal P.A.-C., M.S. [address] [place] [phone] 03/11/2025 8:00 AM CDT Infusion Department of Oncology in [address] [address] Skip Amaya M.D., Ph.D. [address] [place] [phone] 03/24/2025 11:20 AM CDT Lab Department of Infusion Therapy in [address] [address] Skip Amaya M.D., Ph.D. [address] [place] [phone] 03/24/2025 1:30 PM CDT Office Visit Department of Oncology in [address] [address] Skip Amaya M.D., Ph.D. [address] [place] [phone] 03/25/2025 7:00 AM CDT Infusion Department of Oncology in [address] [phone] Skip Amaya M.D., Ph.D. [address] [place] [phone] 03/29/2025 2:30 PM CDT Clinical Communication Virtual Review in [address] [phone] 04/01/2025 6:00 AM CDT Lab Department of Infusion Therapy in [address] [phone] Skip Amaya M.D., Ph.D. [address] [place] [phone] 04/01/2025 8:20 AM CDT Office Visit Department of Oncology in [address] [phone] Precious Hill M.D., Ph.D. [address] [place] [phone] 04/01/2025 9:00 AM CDT Infusion Department of Oncology in [address] [address] Skip Amaya M.D., Ph.D. [address] [place] [phone] 04/07/2025 11:00 AM CDT Lab Department of Infusion Therapy in [place], [place] [address] [place] [phone] Skip Amaya M.D., Ph.D. [address] [place] [phone] 04/07/2025 1:20 PM CDT Office Visit Department of Oncology in [place], [place] [address] [place] [phone] Sandy Judge APRN, C.N.P., M.S. [address] [place] [phone] 04/08/2025 7:00 AM CDT Infusion Department of Oncology in [place], [place] [address] [place] [phone] Skip Amaya M.D., Ph.D. [address] [place] [phone] 04/21/2025 7:15 AM CDT Clinical Communication Virtual Review in [place], [place] 200 [place] [address] 04/22/2025 7:20 AM CDT Lab Department of Infusion Therapy in [place], [place] [address] [place] [phone] Skip Amaya M.D., Ph.D. [address] [place] [phone] 04/22/2025 9:20 AM CDT Office Visit Department of Oncology in [place], [place] [address] [place] [phone] Sandy Judge APRN, C.N.P., M.S. [address] [place] [address] 04/22/2025 10:30 AM CDT Infusion Department of Oncology in [place], [place] [address] [place] [address] Skip Amaya M.D., Ph.D. [address] [place] [phone] documented as of this encounter Goals Goal [...] documented as of this encounter Care Teams Director Medical Science Relationship Specialty Start Date End Date Elsewhere, Pcp PCP - General Internal Medicine 09/09/23 documented as of this encounter
--- OUTSIDE RECORDS SUMMARY | 2025-01-26 11:00 | XMS_ITS | Encounter Summary ---
Author Organization [facility] Address [address] [place] [address] Care Team Providers Care Filling Hauler Weaving Name Role Phone Elsewhere, Pcp Primary Care Provider Unavailabl e Encounter Details Date Type Department Care Team (Late st Contact Info) Description 01/26/2025 11:00 AM CDT Admin Visit Department of Oncology in [place], [place] [address] [place] [address] Social History Tobacco Use Types Packs/Day Years Used Date Smoking Tobacco: Never Passive Smoke Exposure: Past Smokeless Tobacco: Never Passive Exposure Comments:Ch ildhood exposure. Alcohol Use Standard Drinks/Week Comments Not Currently 1 (1 standard drink = 0.6 oz pur e alcohol) 0-1 drink per week [facility] Utilities Answer Date Recorded In the past 12 months has e [employer], gas, oil, or water [employer] threatened to shut off services in your [...] Master's degree (e.g., MA, MS, Katelyn, MEd, GLASS EDGER, KELLEE) 01/05/2025 Sex and Gender Information Value Date Recorded Sex Assigned at Male 09/10/2023 7:48 AM NEGATIVE STRIPPER Legal Sex Male 10:11 PM NEGATIVE STRIPPER Gender Identity Male 09/10/2023 7:48 AM NEGATIVE STRIPPER Sexual Orientation Straight 09/10/2023 7: 48 AM NEGATIVE STRIPPER documented as of this encounter Plan of Treatment Upcoming Encounters Date Type Department Care Team (Latest Contact Info) Description 02/04/2025 7:00 AM CDT Lab Department of Infusion Therapy in [address] [phone] Skip Amaya M.D., Ph.D. [address] [place] [phone] 02/04/2025 8:20 AM CDT Office Visit Department of Oncology in [address] [phone] Jag Frye, KASH, C.N.P., D.N.P. [address] [place] [phone] 02/04/2025 2:00 PM CDT Infusion Department of Oncology in [address] [address] Skip Amaya M.D., Ph.D. [address] [place] [phone] 02/08/2025 2:15 PM CDT Clinical Communication Virtual Review in [address] [phone] 02/09/2025 9:30 AM CDT Telemedicine Department of Oncology in [place], [place] [address] [place] [address] Jesica Wasserman M.B., B.Ch. [address] [place] [address] Cecily Nash L.I.C.S.W. [facility] [place] [address] 02/10/2025 12:00 PM CDT Lab Department of Infusion Therapy in [place], [place] [address] [place] [phone] Skip Amaya M.D., Ph.D. [address] [place] [phone] 02/10/2025 2:30 PM CDT Office Visit Department of Oncology in [place], [place] [address] [place] [phone] Rosenda Garza MPAS, P.A.-C. [address] [place] [phone] 02/11/2025 8:00 AM CDT Infusion Department of Oncology in [place], [place] [address] [place] [phone] Skip Amaya M.D., Ph.D. [address] [place] [phone] 02/23/2025 2:15 PM CDT Clinical Communication Virtual Review in [place], [place] [address] [place] [address] 02/25/2025 8:30 AM CDT Lab Department of Oncology in [place], [place] [address] [place] [phone] Skip Amaya M.D., Ph.D. [address] [place] [phone] 02/25/2025 10:40 AM CDT Office Visit Department of Oncology in [place], [place] [address] [place] [phone] Sandy Judge, KASH, C.N.P., M.S. [address] [place] [phone] 02/25/2025 11:30 AM CDT Infusion Department of Oncology in [place], [place] [address] [place] [phone] Skip Amaya M.D., Ph.D. [address] [place] [phone] 03/04/2025 6:00 AM CDT Lab Department of Infusion Therapy in [place], [place] [address] [place] [phone] Skip Amaya M.D., Ph.D. [address] [place] [phone] 03/04/2025 8:10 AM CDT Office Visit Department of Oncology in [place], [place] [address] [place] [phone] Jie Shoko P.A.-C. [address] [place] [phone] 03/04/2025 9:30 AM CDT Infusion Department of Oncology in [place], [place] [address] [place] [phone] Skip Amaya M.D., Ph.D. [address] [place] [phone] 03/10/2025 2:15 PM CDT Clinical Communication Virtual Review in [place], [place] [address] [place] [address] 03/11/2025 6:00 AM CDT Lab Department of Laboratory Medicine and Pathology, [facility], in [place], [place] [address] [place] [phone] Skip Amaya M.D., Ph.D. [address] [place] [phone] 03/11/2025 7:20 AM CDT Office Visit Department of Oncology in [address] [phone] Bipin Leal P.A.-C., M.S. [address] [place] [phone] 03/11/2025 8:00 AM CDT Infusion Department of Oncology in [address] [address] Skip Amaya M.D., Ph.D. [address] [place] [phone] 03/24/2025 11:20 AM CDT Lab Department of Infusion Therapy in [address] [address] Skip Amaya M.D., Ph.D. [address] [place] [phone] 03/24/2025 1:30 PM CDT Office Visit Department of Oncology in [address] [phone] Skip Amaya M.D., Ph.D. [address] [place] [phone] 03/25/2025 7:00 AM CDT Infusion Department of Oncology in [place], [place] [address] [place] [phone] Skip Amaya M.D., Ph.D. [address] [place] [phone] 03/29/2025 2:30 PM CDT Clinical Communication Virtual Review in [place], [place] [address] [place] [address] 04/01/2025 6:00 AM CDT Lab Department of Infusion Therapy in [address] [address] Skip Amaya M.D., Ph.D. [address] [place] [phone] 04/01/2025 8:20 AM CDT Office Visit Department of Oncology in [address] [phone] Precious Hill M.D., Ph.D. [address] [place] [phone] 04/01/2025 9:00 AM CDT Infusion Department of Oncology in [address] [phone] Skip Amaya M.D., Ph.D. [address] [place] [phone] 04/07/2025 11:00 AM CDT Lab Department of Infusion Therapy in [address] [address] Skip Amaya M.D., Ph.D. [address] [place] [phone] 04/07/2025 1:20 PM CDT Office Visit Department of Oncology in [address] [phone] Sandy Judge APRN, C.N.P., M.S. [address] [place] [phone] 04/08/2025 7:00 AM CDT Infusion Department of Oncology in [place], [place] [address] [place] [phone] Skip Amaya M.D., Ph.D. [address] [place] [phone] 04/21/2025 7:15 AM CDT Clinical Communication Virtual Review in [place], [place] [address] [place] [address] 04/22/2025 7:20 AM CDT Lab Department of Infusion Therapy in [place], [place] [address] [place] [phone] Skip Amaya M.D., Ph.D. [address] [place] [phone] 04/22/2025 9:20 AM CDT Office Visit Department of Oncology in [place], [place] [address] [place] [phone] Sandy Judge APRN, Jordy.N.P., M.S. [address] [place] [phone] 04/22/2025 10:30 AM CDT Infusion Department of Oncology in [place], [place] [address] [place] [phone] Skip Amaya M.D., Ph.D. [address] [place] [phone] documented as of this encounter Goals Goal Patient Goal Type Associated Problems Recent Progress Patient-Stated? Author Autogenerat ed Goal Care Plan Autogenerated Problem No Lempke, Hedy K, R.N. documented as of this encounter Visit Diagnoses Not on filedocumented in this encounter Additional Health Concerns Active Problems Noted Date Diagnosed Date Autogenerated Problem 11/16/2024 Assessment Noted Time PHQ-9 Depression Total Score: 7 01/12/20 25 9:53 AM CDT documented as of this encounter Care Teams Filling Hauler Weaving Relationship Specialty Start Date End Date Elsewhere, Pcp PCP - General Internal Medicine 09/09/23 documented as of this encounter
--- OUTSIDE RECORDS SUMMARY | 2025-01-27 11:20 | XMS_ITS | Encounter Summary ---
Author Organization [facility] Address [address] [place] [id number] Care Team Providers Care Patent Law Specialist Name Role Phone Elsewhere, Pcp Primary Care Provider Unavailabl e Reason for Visit * Episode Based Medications (Routine) - Authorized Specialty Diagnoses / Procedures Referred By Contac t Referred To Contact Diagnoses Malignant Neoplasm Of Pancreas Tail (HCC) Skip Amaya M.D., Ph.D. [address] [place] [phone] Phone: tel: fax: Department of Oncology in [place], [place] [address] [place] [phone] Phone: tel: Referral ID Status Reason Start Date Expiration Date V isits Requested Visits Authorized [id number] Authorized 01/21/2025 01/21/2027 99 99 Encounter Details Date Type Department Care Team (Late st Contact Info) Description 01/27/2025 11:20 AM CDT Lab Department of Infusion Therapy in [place], [place] [address] [place] [phone] Skip Amaya M.D., Ph.D. 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 Alcohol Use Standard Drinks/Week Comments Not Currently 1 (1 standard drink = 0.6 oz pur e alcohol) 0-1 drink per week [facility] Utilities Answer Date Recorded In the [...] your living situation today? I have a [facility] place to live 12/23/2024 Education Answer Date Recorded What is the highest level of school you have completed or the highest degree you have received? Master's degree (e.g., MA, MS, Katelyn, MEd, [employer]) 01/05/2025 Sex and Gender Information Value Date Recorded Sex Assigned at Male 09/10/2023 7:48 AM [facility] Legal Sex Male 10:11 PM [facility] Gender Identity Male 09/10/2023 7:48 AM [facility] Sexual Orientation Straight 09/10/2023 7: 48 AM [facility] documented as of this encounter Plan of Treatment Upcoming Encounters Date Type Department Care Team (Latest Contact Info) Description 02/04/2025 7:00 AM CDT Lab Department of Infusion Therapy in [place], [place] 200 [place] [phone] Skip Amaya M.D., Ph.D. 200 [place] [phone] 02/04/2025 8:20 AM CDT Office Visit Department of Oncology in [place], [place] [address] [place] [phone] Jag Frye, KASH, C.N.P., D.N.P. [address] [place] [phone] 02/04/2025 2:00 PM CDT Infusion Department of Oncology in [place], [place] [address] [place] [address] [phone] Skip Amaya M.D., Ph.D. [address] [place] [address] [phone] 02/08/2025 2:15 PM CDT Clinical Communication Virtual Review in [address] [phone] 02/09/2025 9:30 AM CDT Telemedicine Department of Oncology in [address] [phone] Jesica Wasserman M.B., B.Ch. [address] [place] [phone] Cecily Nash, WeroI.C.S.W. [address] [place] [phone] 02/10/2025 12:00 PM CDT Lab Department of Infusion Therapy in [address] [phone] Skip Amaya M.D., Ph.D. [address] [place] [address] [phone] 02/10/2025 2:30 PM CDT Office Visit Department of Oncology in [address] [phone] Rosenda Garza MPAS, P.A.-C. [address] [place] [phone] 02/11/2025 8:00 AM CDT Infusion Department of Oncology in [place], [place] [address] [place] [phone] Skip Amaya M.D., Ph.D. [address] [place] [phone] 02/23/2025 2:15 PM CDT Clinical Communication Virtual Review in [place], [place] 200 [place] [address] 02/25/2025 8:30 AM CDT Lab Department of Oncology in [place], [place] [address] [place] [phone] Skip Amaya M.D., Ph.D. [address] [place] [phone] 02/25/2025 10:40 AM CDT Office Visit Department of Oncology in [place], [place] [address] [place] [phone] Sandy Judge, KASH, C.N.P., M.S. [address] [place] [phone] 02/25/2025 11:30 AM CDT Infusion Department of Oncology in [place], [place] [address] [place] [phone] Skip Amaya M.D., Ph.D. [address] [place] [phone] 03/04/2025 6:00 AM CDT Lab Department of Infusion Therapy in [address] [phone] Skip Amaya M.D., Ph.D. [address] [place] [phone] 03/04/2025 8:10 AM CDT Office Visit Department of Oncology in [place], [place] [address] [place] [phone] Jie Shook P.A.-C. [address] [place] [phone] 03/04/2025 9:30 AM CDT Infusion Department of Oncology in [place], [place] [address] [place] [phone] kSip Amaya M.D., Ph.D. [address] [place] [phone] 03/10/2025 2:15 PM CDT Clinical Communication Virtual Review in [place], [place] 200 [place] [address] 03/11/2025 6:00 AM CDT Lab Department of Laboratory Medicine and Pathology, [facility], in [place], [place] [address] [place] [phone] Skip Amyaa M.D., Ph.D. [address] [place] [phone] 03/11/2025 7:20 AM CDT Office Visit Department of Oncology in [address] [phone] Bipin Leal P.A.-Jordy., M.S. [address] [place] [phone] 03/11/2025 8:00 AM CDT Infusion Department of Oncology in [place], [place] [address] [place] [phone] Skip Amaya M.D., Ph.D. [address] [place] [phone] 03/24/2025 11:20 AM CDT Lab Department of Infusion Therapy in [place], [place] [address] [place] [phone] Skip Amaya M.D., Ph.D. [address] [place] [phone] 03/24/2025 1:30 PM CDT Office Visit Department of Oncology in [place], [place] [address] [place] [phone] Skip Amaya M.D., Ph.D. [address] [place] [phone] 03/25/2025 7:00 AM CDT Infusion Department of Oncology in [place], [place] [address] [place] [phone] Skip Amaya M.D., Ph.D. [address] [place] [phone] 03/29/2025 2:30 PM CDT Clinical Communication Virtual Review in [place], [place] 200 [place] [phone] 04/01/2025 6:00 AM CDT Lab Department of Infusion Therapy in [place], [place] [address] [place] [phone] Skip Amaya M.D., Ph.D. [address] [place] [phone] 04/01/2025 8:20 AM CDT Office Visit Department of Oncology in [place], [place] [address] [place] [phone] Precious Hill M.D., Ph.D. [address] [place] [phone] 04/01/2025 9:00 AM CDT Infusion Department of Oncology in [place], [place] [address] [place] [phone] Skip Amaya M.D., Ph.D. [address] [place] [phone] 04/07/2025 11:00 AM CDT Lab Department of Infusion Therapy in [place], [place] [address] [place] [phone] Skip Amaya M.D., Ph.D. [address] [place] [phone] 04/07/2025 1:20 PM CDT Office Visit Department of Oncology in [address] [phone] Sandy Judge, KASH, C.N.P., M.S. [address] [place] [phone] 04/08/2025 7:00 AM CDT Infusion Department of Oncology in [place], [place] [address] [place] [phone] Skip Amaya M.D., Ph.D. [address] [place] [phone] 04/21/2025 7:15 AM CDT Clinical Communication Virtual Review in [place], [place] 200 [place] [address] 04/22/2025 7:20 AM CDT Lab Department of Infusion Therapy in [address] [phone] Skip Amaya M.D., Ph.D. [address] [place] [phone] 04/22/2025 9:20 AM CDT Office Visit Department of Oncology in [place], [place] [address] [place] [phone] Sandy Judge, KASH, C.N.P., M.S. [address] [place] [phone] 04/22/2025 10:30 AM CDT Infusion Department of Oncology in [place], [place] [address] [place] [phone] Skip Amaya M.D., Ph.D. [address] [place] [phone] documented as of this encounter Goals Goal Patient Goal Type Associated Problems Recent Progress Patient-Stated? Author Autogenerat ed Goal Care Plan Autogenerated Problem No Hedy Lees, RDean documented as of this encounter Procedures Procedure Name Priority Date/Time Associated Diagnosis Comments CARBOHYDRATE AG 19-9 (CA 19-9), S Routine 01/27/2025 10:55 AM CDT Malignant Neoplasm Of Pancreas Tail (HCC) ACTIVATED PARTIAL THROMBOPLASTIN TIME (APTT), P Routine 01/27/2025 10:55 AM CDT Malignant Neoplasm Of Pancreas Tail (HCC) PROTHROMBIN TIME (PT), P Routine 01/27/2025 10:55 AM CDT Malignant Neoplasm Of Pancreas Tail (HCC) CBC WITH DIFFERENTIAL, B Routine 01/27/2025 10:55 AM CDT Malignant Neoplasm Of Pancreas Tail (HCC) PHOSPHORUS (INORGANIC), S Routine 01/27/2025 10:55 AM CDT Malignant Neoplasm Of Pancreas Tail (HCC) MAGNESIUM, S Routine 01/27/2025 10:55 AM CDT Malignant Neoplasm Of Pancreas Tail (HCC) LACTATE DEHYDROGENASE (LD), S Routine 01/27/2025 10:55 AM CDT Malignant Neoplasm Of Pancreas Tail (HCC) COMPREHENSIVE METABOLIC PANEL, S/P Routine 01/27/2025 10:55 AM CDT Malignant Neoplasm Of Pancreas Tail (HCC) documented in this encounter Results * (ABNORMAL) Carbohydrate Antigen 19-9 (CA 19-9) (01/27/2025 10:55 AM CDT) Pathologist [facility] Carbohydrate Ag 19-9, S 26296(H) <35 U/mL 01/28/2025 12:50 PM CDT [facility] Comment: ----ADDITIONAL INFORMATION---- The testing method is an immunoenzymatic assay manufactured by [employer]. and performed on the [employer] DxI 800. Values obtained with different assay methods or kits may be different and cannot be used interchangeably. Test results cannot be interpreted as absolute evidence for the presence or absence of malignant disease. Blood (Blood, Venous) 01/27/2025 10:55 AM CDT 01/28/2025 11:37 AM CDT Skip Amaya M.D., Ph.D. LAB BLOOD ADD-ON Final R [facility] Performing Organization Address City/[facility]/ZIP Co de Phone Number [facility] [address] [place] [address] [facility] [address] [place] [address] * APTT (Activated Partial Thromboplastin Time) (01/27/2025 10:55 AM CDT) Pathologist [facility] Activated Partial Thrombopl Time, P 26 25 - 37 sec 01/27/2025 11:27 AM CDT DT Blood (Blood, Venous) 01/27/2025 10:55 AM CDT 01/27/2025 11:07 AM CDT us Skip Amaya M.D., Ph.D. LAB BLOOD ADD-ON Final R esult [facility] [address] [place], [place] [phone] [place] [address] 200 [place] [address] * Prothrombin Time (PT) (01/27/2025 10:55 AM CDT) [facility] Prothrombin Time, P 11.4 9.4 - 12.5 sec 01/27/2025 11:27 AM CDT DT INR 1.0 0.9 - 1.1 01/27/2025 11:27 AM CDT DT Comment: ----ADDITIONAL INFORMATION---- Standard intensity warfarin therapeutic range: 2.0 to 3.0 High intensity warfarin therapeutic range: 2.5 to 3.5 Blood (Blood, Venous) 01/27/2025 10:55 AM CDT 01/27/2025 11:07 AM CDT Skip Amaya M.D., Ph.D. LAB BLOOD ADD-ON Final R esult Performing Organization Address City/[facility]/ZIP Co de Phone Number [facility] [address] 200 [place] [address] * LD (Lactate Dehydrogenase) (01/27/2025 10:55 AM CDT) [facility] LD 146 122 - 222 U/L 01/27/2025 12:06 PM CDT DT Blood (Blood, Venous) 01/27/2025 10:55 AM CDT 01/27/2025 11:40 AM CDT Skip Amaya M.D., Ph.D. LAB BLOOD NON ADD-ON Fin al Result Performing Organization Address [facility] Co de Phone Number [facility] [address] 200 [place] [address] * Phosphorus Inorganic (01/27/2025 10:55 AM CDT) [facility] Phosphorus (Inorganic), S 3.0 2.5 - 4.5 mg/dL 01/27/2025 11:50 AM CDT DTL Blood (Blood, Venous) 01/27/2025 10:55 AM CDT 01/27/2025 11:23 AM CDT Skip Amaya M.D., Ph.D. LAB BLOOD ADD-ON Final R esult Performing Organization Address City/[facility] Co de Phone Number [facility] 200 [place] [address], [facility] 200 [place] [address] * Magnesium (01/27/2025 10:55 AM CDT) Magnesium, S 2.2 1.7 - 2.3 mg/dL 01/27/2025 11:50 AM CDT DTL Blood (Blood, Venous) 01/27/2025 10:55 AM CDT 01/27/2025 11:23 AM CDT Skip Amaya M.D., Ph.D. LAB BLOOD ADD-ON Final R [facility] Performing Organization Address City/[facility] Co de Phone Number [facility] 200 [place] [address], [facility] 200 [place] [address] * (ABNORMAL) Comprehensive Metabolic Panel (01/27/2025 10:55 AM CDT) Potassium, S 4.7 3.6 - 5.2 mmol/L 01/27/2025 11:50 AM CDT DTL Sodium, S 139 135 - 145 mmol/L 01/27/2025 11:50 AM CDT DTL Chloride, S 103 98 - 107 mmol/L 01/27/2025 11:50 AM CDT DTL Bicarbonate, S 27 22 - 29 mmol/L 01/27/2025 11:50 AM CDT DTL Anion Gap 9 7 - 15 01/27/2025 11:50 AM CDT DTL BUN (Blood Urea Nitrogen), S 15 8 - 24 mg/dL 01/27/2025 11:50 AM CDT DTL Creatinine 1.28 0.74 - 1.35 mg/dL 01/27/2025 11:50 AM CDT DTL Estimated GFR (eGFR) 60 >=60 mL/min/BS A 01/27/2025 11:50 AM CDT DTL Comment: Estimated GFR calculated using the 2020 CKD_EPI creatinine equation. Calcium, Total, S 9.5 8.8 - 10.2 mg/dL 01/27/2025 11:50 AM CDT DTL Glucose, S 103 70 - 140 mg/dL 01/27/2025 11:50 AM CDT DTL Protein, Total, S 6.4 6.3 - 7.9 g/dL 01/27/2025 11:50 AM CDT DTL Albumin, S 4.0 3.5 - 5.0 g/dL 01/27/2025 11:50 AM CDT DTL Aspartate Aminotransferase (AST), S 32 8 - 48 U/L 01/27/2025 11:50 AM CDT DTL Alkaline Phosphatase, S 212(H) 40 - 129 U/L 01/27/2025 11:50 AM CDT DTL Alanine Aminotransferase (ALT), S 33 7 - 55 U/L 01/27/2025 11:50 AM CDT DTL Bilirubin, Total, S 0.4 0.0 - 1.2 mg/dL 01/27/2025 11:50 AM CDT DTL Blood (Blood, Venous) 01/27/2025 10:55 AM CDT 01/27/2025 11:23 AM CDT Skip Amaya M.D., Ph.D. LAB BLOOD ADD-ON Final R esult [facility] [address] [place] [address], [facility] [address] [place] [address] * (ABNORMAL) CBC with Differential, Blood (01/27/2025 10:55 AM CDT) Hemoglobin 14.4 13.2 - 16.6 g/dL 01/27/2025 11:30 AM CDT DTL Hematocrit 44.4 38.3 - 48.6 % 01/27/2025 11:30 AM CDT DTL Erythrocytes 4.84 4.35 - 5.65 x10(12)/L 01/27/2025 11:30 AM CDT DTL MCV 91.7 78.2 - 97.9 fL 01/27/2025 11:30 AM CDT DTL RBC Distrib Width 13.6 11.8 - 14.5 % 01/27/2025 11:30 AM CDT DTL Platelet Count 179 135 - 317 x10(9)/L 01/27/2025 11:30 AM CDT DTL Leukocytes 10.8(H) 3.4 - 9.6 x10(9)/L 01/27/2025 11:30 AM CDT DTL Neutrophils 7.29(H) 1.56 - 6.45 x10(9)/L 01/27/2025 11:30 AM CDT DHPM Lymphocytes 2.38 0.95 - 3.07 x10(9)/L 01/27/2025 11:30 AM CDT DTL Monocytes 0.72 0.26 - 0.81 x10(9)/L 01/27/2025 11:30 AM CDT DTL Eosinophils 0.31 0.03 - 0.48 x10(9)/L 01/27/2025 11:30 AM CDT DTL Basophils 0.06 0.01 - 0.08 x10(9)/L 01/27/2025 11:30 AM CDT DTL Blood (Blood, Venous) 01/27/2025 10:55 AM CDT 01/27/2025 11:07 AM CDT us Skip Amaya M.D., Ph.D. LAB BLOOD ADD-ON Final R esult [facility] [address] [place] [address], [place] DTL [facility] [address] [place] [address] DHPM [facility] [address] [place] [address] documented in this encounter Visit Diagnoses Diagnosis Malignant Neoplasm Of Pancreas Tail (HCC)- Primary documented in this encounter Administered Medications Inactive Administered Medications - up to 3 most recent administrations Medication Order MAR Action Action Date Dose Rate Site heparin flush 500 Units 500 Units, intra-catheter, As needed, line care, Starting on Shandra 01/27/25 at 1058, When IVAD accessed and not infusing: When no infusion to maintain patency flush every 7 days following NaCL flush. 5 mL (500 units) of Heparin 100 units/mL to each port/lumen. When IVAD not accessed or infusing: When no infusion to maintain patency flush every 28 days following NaCL flush. 5 mL (500 units) of Heparin 100 units/mL to each port/lumen.Indications:Maligna nt Neoplasm Of Pancreas Tail (HCC) Given 01/27/2025 10:58 AM CDT 500 Units sodium chloride 0.9 % injection 20-40 mL 20-40 mL, intra-catheter, As needed, line care, Starting on Shandra 01/27/25 at 1058, When IVAD accessed and infusing: Flush prior to blood sampling, post blood transfusion or post blood sampling. 20 mL to each port/lumen.Indications:Maligna nt Neoplasm Of Pancreas Tail (HCC) Given 01/27/2025 10:58 AM CDT 40 mL documented in this encounter Additional Health Concerns Active Problems Noted Date Diagnosed Date Autogenerated Problem 11/16/2024 Assessment Noted Time PHQ-9 Depression Total Score: 7 01/12/20 25 9:53 AM CDT documented as of this encounter Care Teams Patent Law Specialist Relationship Specialty Start Date End Date Elsewhere, Pcp PCP - General Internal Medicine 09/09/23 documented as of this encounter
--- OUTSIDE RECORDS SUMMARY | 2025-01-27 13:20 | XMS_ITS | Encounter Summary ---
Author Organization [facility] Address [address] [place] [address] Care Team Providers Care Professor Of Music Name Role Phone Elsewhere, Pcp Primary Care Provider Unavailabl e Reason for Visit * Episode Based Medications (Routine) - Authorized Specialty Diagnoses / Procedures Referred By Contac t Referred To Contact Diagnoses Malignant Neoplasm Of Pancreas Tail (HCC) Skip Amaya M.D., Ph.D. [address] [place] [phone] Phone: tel: fax: Department of Oncology in [place], [place] [address] [place] [phone] Phone: tel: Referral ID Status Reason Start Date Expiration Date V isits Requested Visits Authorized [id number] Authorized 01/21/2025 01/21/2027 99 99 Encounter Details Date Type Department Care Team (Late st Contact Info) Description 01/27/2025 1:20 PM CDT Office Visit Department of Oncology in [place], [place] [address] [place] [phone] Lionel Swenson M.D. [address] [place] [phone] 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) Social History Tobacco Use Types Packs/Day Years Used Date Smoking Tobacco: Never Passive Smoke Exposure: Past Smokeless Tobacco: Never Passive Exposure Comments:Ch ildhood exposure. Alcohol Use Standard Drinks/Week Comments Not Currently 1 (1 standard drink = 0.6 oz pur e alcohol) 0-1 drink per week [facility] Utilities Answer Date Recorded In the [...] your living situation today? I have a [facility] place to live 12/23/2024 Education Answer Date Recorded What is the highest level of school you have completed or the highest degree you have received? Master's degree (e.g., MA, MS, Katelyn, MEd, APPLIED STATISTICIAN, KELLEE) 01/05/2025 Sex and Gender Information Value Date Recorded Sex Assigned at Male 09/10/2023 7:48 AM VALVER Legal Sex Male 10:11 PM VALVER Gender Identity Male 09/10/2023 7:48 AM VALVER Sexual Orientation Straight 09/10/2023 7: 48 AM VALVER documented as of this encounter Last Filed [...] PHYSICIAN ELSEWHERE, PCP LOCAL ONCOLOGIST No care customer solutions teammate to display [facility] [place] ONCOLOGIST Jesica Wasserman M.B., B.Ch. Skip Amaya [...] in 2024; Multi-Cancer + RNA panel through [facility]. No pathogenic variants identified. One heterozygous variant of uncertain significance found in the RET gene, specifically named c.1737C>G ([id number]). 01/28/2025 - Research Study Participant Research Study: Study of Quemliclustat and Chemotherapy Versus Placebo and Chemotherapy in PatientsWith Metastatic Pancreatic Ductal Adenocarcinoma ([id number]) Treatment Protocol: [facility] PRISM-1 ( Quemliclustat (AB680) or Placebo [...] normal, with the exception of modest right-sided qmrdkv-ph-srxg dysmetria and decreased sensation in the lower extremities. Tandem gait is intact, Romberg negative, reflexes symmetric. LABORATORY DATA Lab data reviewed. RADIOLOGICAL DATA Radiology data reviewed. Current Therapy: [facility] PRISM-1 ( Quemliclustat (AB680) or Placebo [...] CDT Lab Department of Infusion Therapy in [address] [address] Skip Amaya M.D., Ph.D. [address] [place] [phone] 02/04/2025 8:20 AM CDT Office Visit Department of Oncology in [address] [phone] Jag Frye, KASH, C.N.P., D.N.P. [address] [place] [phone] 02/04/2025 2:00 PM CDT Infusion Department of Oncology in [address] [phone] Skip Amaya M.D., Ph.D. [address] [place] [phone] 02/08/2025 2:15 PM CDT Clinical Communication Virtual Review in [address] [address] 02/09/2025 9:30 AM CDT Telemedicine Department of Oncology in [address] [phone] Jesica Wasserman M.B., B.Ch. [address] [place] [address], [place] [address] Cecily Nash L.I.C.SJustynW. 10[address] [place] [address] 02/10/2025 12:00 PM CDT Lab Department of Infusion Therapy in [address] [address] Skip Amaya M.D., Ph.D. [address] [place] [phone] 02/10/2025 2:30 PM CDT Office Visit Department of Oncology in [address] [phone] Rosenda Garza MPAS, P.A.-C. [address] [place] [phone] 02/11/2025 8:00 AM CDT Infusion Department of Oncology in [address] [address] Skip Amaya M.D., Ph.D. [address] [place] [phone] 02/23/2025 2:15 PM CDT Clinical Communication Virtual Review in [place], [place] 200 [place] [address] 02/25/2025 8:30 AM CDT Lab Department of Oncology in [address] [address] Skip Amaya M.D., Ph.D. [address] [place] [phone] 02/25/2025 10:40 AM CDT Office Visit Department of Oncology in [address] [address] Sandy Judge APRN, C.N.P., M.S. [address] [place] [phone] 02/25/2025 11:30 AM CDT Infusion Department of Oncology in [place], [place] [address] [place] [phone] Skip Amaya M.D., Ph.D. [address] [place] [phone] 03/04/2025 6:00 AM CDT Lab Department of Infusion Therapy in [address] [address] Skip Amaya M.D., Ph.D. [address] [place] [phone] 03/04/2025 8:10 AM CDT Office Visit Department of Oncology in [address] [address] Jie Shook P.A.-C. [address] [place] [phone] 03/04/2025 9:30 AM CDT Infusion Department of Oncology in [address] [address] Skip Amaya M.D., Ph.D. [address] [place] [phone] 03/10/2025 2:15 PM CDT Clinical Communication Virtual Review in [place], [place] 200 [place] [address] 03/11/2025 6:00 AM CDT Lab Department of Laboratory Medicine and Pathology, [facility], in [address] [address] Skip Amaya M.D., Ph.D. [address] [place] [phone] 03/11/2025 7:20 AM CDT Office Visit Department of Oncology in [place], [place] [address] [place] [phone] Bipin Leal P.A.-C., M.S. [address] [place] [phone] 03/11/2025 8:00 AM CDT Infusion Department of Oncology in [place], [place] [address] [place] [phone] Skip Amaya M.D., Ph.D. [address] [place] [phone] 03/24/2025 11:20 AM CDT Lab Department of Infusion Therapy in [place], [place] [address] [place] [phone] Skip Amaya M.D., Ph.D. [address] [place] [phone] 03/24/2025 1:30 PM CDT Office Visit Department of Oncology in [place], [place] [address] [place] [phone] Skip Amaya M.D., Ph.D. [address] [place] [phone] 03/25/2025 7:00 AM CDT Infusion Department of Oncology in [place], [place] [address] [place] [phone] Skip Amaya M.D., Ph.D. [address] [place] [phone] 03/29/2025 2:30 PM CDT Clinical Communication Virtual Review in [place], [place] 200 [place] [address] 04/01/2025 6:00 AM CDT Lab Department of Infusion Therapy in [place], [place] [address] [place] [phone] Skip Amaya M.D., Ph.D. [address] [place] [phone] 04/01/2025 8:20 AM CDT Office Visit Department of Oncology in [place], [place] [address] [place] [phone] Precious Hill M.D., Ph.D. [address] [place] [phone] 04/01/2025 9:00 AM CDT Infusion Department of Oncology in [address] [address] Skip Amaya M.D., Ph.D. [address] [place] [phone] 04/07/2025 11:00 AM CDT Lab Department of Infusion Therapy in [address] [address] Skip Amaya M.D., Ph.D. [address] [place] [phone] 04/07/2025 1:20 PM CDT Office Visit Department of Oncology in [address] [address] Sandy Judge, KASH, C.N.P., M.S. [address] [place] [phone] 04/08/2025 7:00 AM CDT Infusion Department of Oncology in [address] [address] Skip Amaya M.D., Ph.D. [address] [place] [phone] 04/21/2025 7:15 AM CDT Clinical Communication Virtual Review in [address] [address] 04/22/2025 7:20 AM CDT Lab Department of Infusion Therapy in [address] [address] Skip Amaya M.D., Ph.D. [address] [place] [phone] 04/22/2025 9:20 AM CDT Office Visit Department of Oncology in [address] [address] Sandy Judge, KASH, C.N.P., M.S. [address] [place] [phone] 04/22/2025 10:30 AM CDT Infusion Department of Oncology in [address] [address] Skip Amaya M.D., Ph.D. [address] [place] [phone] documented as of this encounter Goals Goal Patient Goal Type Associated Problems Recent Progress Patient-Stated? Author Autogenerat ed Goal Care Plan Autogenerated Problem Hedy Frankel RDean documented as of this encounter Visit Diagnoses Diagnosis Malignant Neoplasm Of Pancreas Tail (HCC)- Primary documented in this encounter Additional Health Concerns Active Problems Noted Date Diagnosed Date Autogenerated Problem 11/16/2024 Assessment Noted Time PHQ-9 Depression Total Score: 7 01/12/20 25 9:53 AM CDT documented as of this encounter Care Teams Professor Of Music Relationship Specialty Start Date End Date Elsewhere, Pcp PCP - General Internal Medicine 09/09/23 documented as of this encounter
--- OUTSIDE RECORDS SUMMARY | 2025-01-27 14:20 | XMS_ITS | Encounter Summary ---
Author Organization [facility] Address [address] [place] [id number] Care Team Providers Care Quality Assurance Lead Name Role Phone Elsewhere, Pcp Primary Care Provider Unavailabl e Reason for Visit * Episode Based Medications (Routine) - Authorized Specialty Diagnoses / Procedures Referred By Contac t Referred To Contact Diagnoses Malignant Neoplasm Of Pancreas Tail (HCC) Skip Amaya M.D., Ph.D. [address] [place] [phone] Phone: tel: fax: Department of Oncology in [place], [place] [address] [place] [phone] Phone: tel: Referral ID Status Reason Start Date Expiration Date V isits Requested Visits Authorized [id number] Authorized 01/21/2025 01/21/2027 99 99 Encounter Details Date Type Department Care Team (Late st Contact Info) Description 01/27/2025 2:20 PM CDT Education Department of Oncology in [place], [place] [address] [place] [phone] Skip Amaya M.D., Ph.D. [address] [place] [phone] Shalonda Ingram R.N., [facility] 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) Social History Tobacco Use Types Packs/Day Years Used Date Smoking Tobacco: Never Passive Smoke Exposure: Past Smokeless Tobacco: Never Passive Exposure Comments:Ch ildhood exposure. Alcohol Use Standard Drinks/Week Comments Not Currently 1 (1 standard drink = 0.6 oz pur e alcohol) 0-1 drink per week [facility] Utilities Answer Date Recorded In the [...] your living situation today? I have a [facility] place to live 12/23/2024 Education Answer Date Recorded What is the highest level of school you have completed or the highest degree you have received? Master's degree (e.g., MA, MS, Katelyn, MEd, DOOR REPAIRER BUS, KELLEE) 01/05/2025 Sex and Gender Information Value Date Recorded Sex Assigned at Male 09/10/2023 7:48 AM TRANSCRIPT EVALUATOR Legal Sex Male 10:11 PM TRANSCRIPT EVALUATOR Gender Identity Male 09/10/2023 7:48 AM TRANSCRIPT EVALUATOR Sexual Orientation Straight 09/10/2023 7: 48 AM TRANSCRIPT EVALUATOR documented as of this encounter Plan of Treatment Upcoming Encounters Date Type Department Care Team (Latest Contact Info) Description 02/04/2025 7:00 AM CDT Lab Department of Infusion Therapy in [place], [place] 200 [place] [address] Skip Amaya M.D., Ph.D. [address] [place] [phone] 02/04/2025 8:20 AM CDT Office Visit Department of Oncology in [place], [place] [address] [place] [phone] Jag Frye, TITLE MANAGER, C.N.P., D.N.P. [address] [place] [phone] 02/04/2025 2:00 PM CDT Infusion Department of Oncology in [place], [place] [address] [place] [phone] Skip Amaya M.D., Ph.D. [address] [place] [phone] 02/08/2025 2:15 PM CDT Clinical Communication Virtual Review in [place], [place] 200 [place] [phone] 02/09/2025 9:30 AM CDT Telemedicine Department of Oncology in [address] [phone] Jesica Wasserman M.B., B.Ch. [address] [place] [phone] Cecily Nash, WeroI.C.S.W. [address] [place] [phone] 02/10/2025 12:00 PM CDT Lab Department of Infusion Therapy in [place], [place] [address] [place] [phone] Skip Amaya M.D., Ph.D. [address] [place] [phone] 02/10/2025 2:30 PM CDT Office Visit Department of Oncology in [place], [place] [address] [place] [phone] Rosenda Garza MPAS, P.A.-C. [address] [place] [phone] 02/11/2025 8:00 AM CDT Infusion Department of Oncology in [place], [place] [address] [place] [phone] Skip Amaya M.D., Ph.D. [address] [place] [phone] 02/23/2025 2:15 PM CDT Clinical Communication Virtual Review in [place], [place] 200 [place] [address] 02/25/2025 8:30 AM CDT Lab Department of Oncology in [address] [phone] Skip Amaya M.D., Ph.D. [address] [place] [phone] 02/25/2025 10:40 AM CDT Office Visit Department of Oncology in [address] [phone] Sandy Judge APRN, C.N.P., M.S. [address] [place] [phone] 02/25/2025 11:30 AM CDT Infusion Department of Oncology in [address] [phone] Skip Amaya M.D., Ph.D. [address] [place] [phone] 03/04/2025 6:00 AM CDT Lab Department of Infusion Therapy in [address] [phone] Skip Amaya M.D., Ph.D. [address] [place] [phone] 03/04/2025 8:10 AM CDT Office Visit Department of Oncology in [place], [place] [address] [place] [phone] Jie Shook P.A.-C. [address] [place] [phone] 03/04/2025 9:30 AM CDT Infusion Department of Oncology in [place], [place] [address] [place] [phone] Skip Amaya M.D., Ph.D. [address] [place] [phone] 03/10/2025 2:15 PM CDT Clinical Communication Virtual Review in [place], [place] 200 [place] [address] 03/11/2025 6:00 AM CDT Lab Department of Laboratory Medicine and Pathology, [facility] in [address] [phone] Skip Amaya M.D., Ph.D. [address] [place] [phone] 03/11/2025 7:20 AM CDT Office Visit Department of Oncology in [place], [place] [address] [place] [phone] Bipin Leal P.A.-C., M.S. [address] [place] [phone] 03/11/2025 8:00 AM CDT Infusion Department of Oncology in [place], [place] [address] [place] [phone] Skip Amaya M.D., Ph.D. [address] [place] [phone] 03/24/2025 11:20 AM CDT Lab Department of Infusion Therapy in [place], [place] [address] [place] [phone] Skip Amaya M.D., Ph.D. [address] [place] [phone] 03/24/2025 1:30 PM CDT Office Visit Department of Oncology in [address] [phone] Skip Amaya M.D., Ph.D. [address] [place] [phone] 03/25/2025 7:00 AM CDT Infusion Department of Oncology in [place], [place] [address] [place] [phone] Skip Amaya M.D., Ph.D. [address] [place] [phone] 03/29/2025 2:30 PM CDT Clinical Communication Virtual Review in [address] [phone] 04/01/2025 6:00 AM CDT Lab Department of Infusion Therapy in [address] [address] Skip Amaya M.D., Ph.D. [address] [place] [phone] 04/01/2025 8:20 AM CDT Office Visit Department of Oncology in [address] [phone] Precious Hill M.D., Ph.D. [address] [place] [phone] 04/01/2025 9:00 AM CDT Infusion Department of Oncology in [place], [place] [address] [place] [phone] Skip Amaya M.D., Ph.D. [address] [place] [phone] 04/07/2025 11:00 AM CDT Lab Department of Infusion Therapy in [place], [place] [address] [place] [phone] Skip Amaya M.D., Ph.D. [address] [place] [phone] 04/07/2025 1:20 PM CDT Office Visit Department of Oncology in [place], [place] [address] [place] [phone] Sandy Jduge APRN, C.N.P., M.S. [address] [place] [phone] 04/08/2025 7:00 AM CDT Infusion Department of Oncology in [place], [place] [address] [place] [phone] Skip Amaya M.D., Ph.D. [address] [place] [phone] 04/21/2025 7:15 AM CDT Clinical Communication Virtual Review in [place], [place] 200 [place] [address] 04/22/2025 7:20 AM CDT Lab Department of Infusion Therapy in [address] [address] Skip Amaya M.D., Ph.D. [address] [place] [phone] 04/22/2025 9:20 AM CDT Office Visit Department of Oncology in [place], [place] [address] [place] [phone] Sandy Judge APRN, C.N.P., M.S. [address] [place] [phone] 04/22/2025 10:30 AM CDT Infusion Department of Oncology in [place], [place] [address] [place] [phone] Skip Amaya M.D., Ph.D. [address] [place] [phone] documented as of this encounter Goals Goal [...] documented as of this encounter Care Teams Quality Assurance Lead Relationship Specialty Start Date End Date Elsewhere, Pcp PCP - General Internal Medicine 09/09/23 documented as of this encounter
--- OUTSIDE RECORDS SUMMARY | 2025-01-28 07:00 | XMS_ITS | Encounter Summary ---
Author Organization [facility] Address [address] [place] [id number] Care Team Providers Care Steam Tunnel Feeder Name Role Phone Elsewhere, Pcp Primary Care Provider Unavailabl e Reason for Visit * Episode Based Medications (Routine) - Authorized Specialty Diagnoses / Procedures Referred By Contac t Referred To Contact Diagnoses Malignant Neoplasm Of Pancreas Tail (HCC) Skip Amaya M.D., Ph.D. [address] [place] [phone] Phone: tel: fax: Department of Oncology in [place], [place] [address] [place] [phone] Phone: tel: Referral ID Status Reason Start Date Expiration Date V isits Requested Visits Authorized [id number] Authorized 01/21/2025 01/21/2027 99 99 Encounter Details Date Type Department Care Team (Late st Contact Info) Description 01/28/2025 7:00 AM CDT Infusion Department of Oncology in [place], [place] [address] [place] [phone] Skip Amaya M.D., Ph.D. 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 Alcohol Use Standard Drinks/Week Comments Not Currently 1 (1 standard drink = 0.6 oz pur e alcohol) 0-1 drink per week [facility] Utilities Answer Date Recorded In the [...] your living situation today? I have a [facility] place to live 12/23/2024 Education Answer Date Recorded What is the highest level of school you have completed or the highest degree you have received? Master's degree (e.g., MA, MS, Katelyn, MEd, OIL HEATER OPERATOR, KELLEE) 01/05/2025 Sex and Gender Information Value Date Recorded Sex Assigned at Male 09/10/2023 7:48 AM CUSTOM GRINDER Legal Sex Male 10:11 PM CUSTOM GRINDER Gender Identity Male 09/10/2023 7:48 AM CUSTOM GRINDER Sexual Orientation Straight 09/10/2023 7: 48 AM CUSTOM GRINDER documented as of this encounter Last Filed [...] 1:12 PM CDT documented in this encounter Plan of Treatment Upcoming Encounters Date Type Department Care Team (Latest Contact Info) Description 02/04/2025 7:00 AM CDT Lab Department of Infusion Therapy in [place], [place] [address] [place] [phone] Skip Amaya M.D., Ph.D. [address] [place] [phone] 02/04/2025 8:20 AM CDT Office Visit Department of Oncology in [place], [place] [address] [place] [phone] Jag Frye, KASH, C.N.P., D.N.P. [address] [place] [phone] 02/04/2025 2:00 PM CDT Infusion Department of Oncology in [place], [place] [address] [place] [phone] Skip Amaya M.D., Ph.D. [address] [place] [phone] 02/08/2025 2:15 PM CDT Clinical Communication Virtual Review in [place], [place] [address] [place] [phone] 02/09/2025 9:30 AM CDT Telemedicine Department of Oncology in [address] [phone] Jesica Wasserman M.B., B.Ch. [address] [place] [phone] Cecily Nash, WeroI.C.S.W. [address] [place] [phone] 02/10/2025 12:00 PM CDT Lab Department of Infusion Therapy in [address] [phone] Skip Amaya M.D., Ph.D. [address] [place] [phone] 02/10/2025 2:30 PM CDT Office Visit Department of Oncology in [address] [phone] Rosenda Garza MPAS, P.A.-C. [address] [place] [phone] 02/11/2025 8:00 AM CDT Infusion Department of Oncology in [address] [phone] Skip Amaya M.D., Ph.D. [address] [place] [phone] 02/23/2025 2:15 PM CDT Clinical Communication Virtual Review in [address] [phone] 02/25/2025 8:30 AM CDT Lab Department of Oncology in [address] [phone] Skip Amaya M.D., Ph.D. [address] [place] [phone] 02/25/2025 10:40 AM CDT Office Visit Department of Oncology in [address] [phone] Sandy Judge, KASH, C.N.P., M.S. [address] [place] [phone] 02/25/2025 11:30 AM CDT Infusion Department of Oncology in [address] [phone] Skip Amaya M.D., Ph.D. [address] [place] [phone] 03/04/2025 6:00 AM CDT Lab Department of Infusion Therapy in [place], [place] [address] [place] [phone] Skip Amaya M.D., Ph.D. [address] [place] [phone] 03/04/2025 8:10 AM CDT Office Visit Department of Oncology in [place], [place] [address] [place] [phone] Jie Shook P.A.-C. [address] [place] [phone] 03/04/2025 9:30 AM CDT Infusion Department of Oncology in [place], [place] [address] [place] [phone] Skip Amaya M.D., Ph.D. [address] [place] [phone] 03/10/2025 2:15 PM CDT Clinical Communication Virtual Review in [place], [place] [address] [place] [phone] 03/11/2025 6:00 AM CDT Lab Department of Laboratory Medicine and Pathology, [facility] in [place], [place] [address] [place] [phone] Skip Amaya M.D., Ph.D. [address] [place] [phone] 03/11/2025 7:20 AM CDT Office Visit Department of Oncology in [place], [place] [address] [place] [phone] Jochum, Bipin Petty P.A.-C., M.S. [address] [place] [phone] 03/11/2025 8:00 AM CDT Infusion Department of Oncology in [place], [place] [address] [place] [phone] Skip Amaya M.D., Ph.D. [address] [place] [phone] 03/24/2025 11:20 AM CDT Lab Department of Infusion Therapy in [place], [place] [address] [place] [phone] Skip Amaya M.D., Ph.D. [address] [place] [phone] 03/24/2025 1:30 PM CDT Office Visit Department of Oncology in [address] [phone] Skip Amaya M.D., Ph.D. [address] [place] [phone] 03/25/2025 7:00 AM CDT Infusion Department of Oncology in [address] [phone] Skip Amaya M.D., Ph.D. [address] [place] [phone] 03/29/2025 2:30 PM CDT Clinical Communication Virtual Review in [place], [place] 200 [place] [phone] 04/01/2025 6:00 AM CDT Lab Department of Infusion Therapy in [address] [phone] Skip Amaya M.D., Ph.D. [address] [place] [phone] 04/01/2025 8:20 AM CDT Office Visit Department of Oncology in [address] [phone] Precious Hill M.D., Ph.D. [address] [place] [phone] 04/01/2025 9:00 AM CDT Infusion Department of Oncology in [address] [phone] Skip Amaya M.D., Ph.D. [address] [place] [phone] 04/07/2025 11:00 AM CDT Lab Department of Infusion Therapy in [address] [phone] Skip Amaya M.D., Ph.D. [address] [place] [phone] 04/07/2025 1:20 PM CDT Office Visit Department of Oncology in [address] [phone] Sandy Judge, KASH, C.N.P., M.S. [address] [place] [phone] 04/08/2025 7:00 AM CDT Infusion Department of Oncology in [address] [phone] Skip Amaya M.D., Ph.D. [address] [place] [phone] 04/21/2025 7:15 AM CDT Clinical Communication Virtual Review in [address] [phone] 04/22/2025 7:20 AM CDT Lab Department of Infusion Therapy in [place], [place] [address] [place] [phone] Skip Amaya M.D., Ph.D. [address] [place] [phone] 04/22/2025 9:20 AM CDT Office Visit Department of Oncology in [place], [place] [address] [place] [phone] Sandy Judge, KASH, C.N.P., M.S. [address] [place] [phone] 04/22/2025 10:30 AM CDT Infusion Department of Oncology in [place], [place] [address] [place] [phone] Skip Amaya M.D., Ph.D. [address] [place] [phone] documented as of this encounter Goals Goal [...] CDT 300 mg 120 mL/hr Research IRB [id number] quemliclustat or placebo 100 mg in NaCl [...] multiple consecutive infusions. 10 mL to each port/lumen.Indications:Malig nant Neoplasm Of Pancreas [...] documented as of this encounter Care Teams Steam Tunnel Feeder Relationship Specialty Start Date End Date Elsewhere, Pcp PCP - General Internal Medicine 09/09/23 documented as of this encounter
--- OUTSIDE RECORDS SUMMARY | 2025-01-30 17:41 | XMS_ITS | Clinical Summary ---
Author Organization [facility] Address [address] [place] [address] Care Team Providers Care Policy Checker Name Role Phone Lexie Dale Primary Care Provider Junior Jenkins MD Unavailable [phone] [facility] Un[facility] Allergies Active Allergy Reactions Criticality Noted Date Comments Amoxicillin-Pot Clavulanate GI Upset,Stomach Upset 10/08/2016 Medications cholecalciferol, vitamin D3, 100 mcg (4,000 unit) cap Take by mouth once daily. 0 08/16/19 14 Active aspirin (ECOTRIN) 81 mg enteric coated tabletIndications: Coronary artery disease involving algaaciq coronary artery of algaaciq heart TAKE 1 TABLET(81 MG) BY MOUTH EVERY DAY WITH A MEAL 90 Tablet 1 11/28/19 24 Active Additional Information Patient not taking.Reason: Is getting a port on 01/17., Reported on 01/14/2025 atorvastatin (LIPITOR) 80 mg tabletIndications: Arteriosclerotic heart disease TAKE 1 TABLET(80 MG) BY MOUTH EVERY DAY 90 Tablet 3 03/06/20 24 Active sildenafil citrate (VIAGRA) 100 mg tabletIndications: Erectile dysfunction, unspecified erectile dysfunction type Take 30min to 4 hours before sexual activity. Max 100mg/24hr.TAKE 1 TABLET BY MOUTH DAILY NEEDED FOR ERECTILE DYSFUNCTION. TAKE 30 MINUTES TO 4 HOURS BEFORE SEXUAL ACTIVITY. MAX OF 1 TABLET IN 24 HOURS 30 Tablet 5 04/16/20 24 Active buPROPion (WELLBUTRIN XL) 150 mg Extended-Release tabletIndications: Depression, major, single episode, moderate (HC) TAKE 1 TABLET BY MOUTH EVERY MORNING. TAKE WITH THE 300 MG TABLET 90 Tablet 3 05/10/20 24 Active buPROPion (WELLBUTRIN XL) 300 mg Extended-Release tabletIndications: Depression, major, single episode, moderate (HC) TAKE ONCE DAILY BY MOUTH WITH 150MG BUPROPION XL FOR TOTAL DOSE OF 450MG 90 Tablet 3 05/10/20 24 Active escitalopram oxalate (LEXAPRO) 20 mg tabletIndications: Seasonal affective disorder,Situation al mixed anxiety and depressive disorder TAKE 1 TABLET(20 MG) BY MOUTH EVERY MORNING 90 Tablet 3 05/10/20 24 Active nitroglycerin 0.4 mg sublingual tabletIndications: Coronary artery disease involving algaaciq coronary artery of algaaciq heart, unspecified whether angina present Place 1 Tablet (0.4 mg) under the tongue every 5 minutes if needed for Chest Pain. Up to 3 tablets in 15 minutes. 25 Tablet 3 01/15/20 25 Active oxyCODONE 5 mg immediate release tabletIndications: Metastatic cancer to liver (HC),Pancreatic adenocarcinoma (HC) Take 1-2 Tablets (5-10 mg) by mouth every 4 hours if needed for Pain. 20 Tablet 12/28/19 25 Active LORazepam 0.5 mg tabIndications:Sit uational mixed anxiety and depressive disorder Take 1-2 Tablets (0.5-1 mg) by mouth every 6 hours if needed for Anxiety. 30 Tablet 1 01/07/20 25 Active acetaminophen (TYLENOL EXTRA STRGTH) 500 mg tablet Take 1,000 mg by mouth four times daily. 11/18/19 24 Active clopidogreL (Plavix) 75 mg tabletIndications: Coronary artery disease involving algaaciq coronary artery of algaaciq heart, unspecified whether angina present,Arterioscl erotic heart disease Take 1 Tablet (75 mg) by mouth once daily. 90 Tablet 3 02/19/20 24 025 Discontin ued(*Med complete/ Regimen complete/ Level of care change) LORazepam 0.5 mg tabIndications:Sit uational mixed anxiety and depressive disorder Take 1-2 Tablets (0.5-1 mg) by mouth every 6 hours if needed for Anxiety. 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 Patient is easily Fatigued and has Shortness of Breath. Patient has Dizziness and can be from sitting to standing. Patient denies Chest Pain. Patient is getting a port on 01/17 and had to be off aspirin and plavix. Will start chemo after that. ) 01/14/2025 Travel 01/09/2025 Travel 01/06/2025 Telephone [facility] [address] [place] [address] Lexie Dale PA 01/05/2025 Telephone [facility] [address] [place] [address] [place], [facility] Financial Questions/Services (Financial Navigation review) 01/04/2025 Telephone [facility] [address] [facility] [address] [facility] [address] [place] [phone] Junior Jenkins MD Results (zio) 12/27/2024 Orders Only [facility] [address] [place] [address] Lexie Dale PA <No scans attached> 12/23/2024 2:00 PM CDT Ancillary Procedure [facility] [address] [place] [address] 12/23/2024 Telephone [facility] [address] [place] [address] Marcela Alberto MD Error-please disregard (opened in error) 12/23/2024 Travel 12/23/2024 Telephone [facility] [address] [place] [address] Lexie Dale PA 12/23/2024 Telephone [facility] [address] [facility] [address] Marcela Alberto MD Results 12/23/2024 Telephone [facility] [address] [facility] [place] [phone] [facility] Referral (Pancreatic adenocarcinoma (HC) [C25.9]/Metastatic cancer to liver (HC) [C78.7]/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]//) 12/21/2024 1:00 PM CDT Ancillary Procedure [facility] [address] [facility] [address] 12/21/2024 11:15 AM CDT Ancillary Procedure [facility] [address] [facility] [place] [address] 12/21/2024 9:50 AM CDT Office Visit [facility] [address] [facility] [address] Marcela Alberto MD Abdominal Pain (abdominal pain for 2 weeks - worsening over the last 4/5 days); Flank Pain (right flank pain started this morning ) 12/21/2024 Travel 12/01/2024 Telephone [facility] [address] [place] [address] Junior Jenkins MD Results (Stress test) 11/30/2024 10:13 AM CDT - 11/30/2024 11:59 PM CDT Hospital Encounter [facility] [address] [place] [address] Junior Jenkins MD Chest discomfort; FELDER (dyspnea on exertion) 11/30/2024 6:48 AM CDT - 11/30/2024 10:12 AM CDT Hospital Encounter [facility] [address] [place] [address] Junior Jenkins MD Chest discomfort; FELDER (dyspnea on exertion) 11/30/2024 Travel 11/26/2024 Telephone [facility] [address] [place], [place] [phone] Adurey Renee Cardiovascular Diagnostic Testing (lvm to confirm 11/30/24 stress test appt ) 11/24/2024 Telephone [facility] [address] [place] [address] Junior Jenkins MD symptoms 11/22/2024 Nurse Triage [facility] [address] [place] [address] Lexie Dale PA Shortness Of Breath; Chest Pain from Last 3 Months Immunizations Immunization Administration [...] on file Legal Sex Male 6:19 [employer] Gender Identity Not on file Sexual Orientation Not on file 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 Not on file Not on file Obstetrics History Last Filed Vital Signs Vital Sign Reading Time Taken Comments Blood Pressure 104/70 01/14/2025 1:58 PM CDT Pulse 103 01/14/2025 1:58 PM CDT Temperature 36.7 C (98.1 F) 10/15/2024 7:42 AM CDT Respiratory Rate 16 01/14/2025 1:58 PM CDT Oxygen Saturation 96% 01/14/2025 1:58 PM CDT Inhaled Oxygen Concentration - - Weight 95.1 kg (209 lb 9.6 oz) 01/14/2025 1:58 P M CDT Height 182.9 cm (6') 01/14/2025 1:58 PM CDT Body Mass Index 28.43 01/14/2025 1:58 PM CDT Plan of Treatment Health Maintenance Due Date Last Done Comments Hepatitis C screening for ag e 18-79 1972 Pneumococcal series for age 50+ (1 of 2 - PCV) 1973 Zoster (shingles) series for age 50+ (1 of 2) 1973 Hepatitis B series for 19+ ( 1 of 3 - Risk 3-dose series) 2014 RSV vaccine for adults or (1 - Risk 60-74 years 1-dose series) 2014 Medicare Wellness for age 65+ 2019 Tetanus booster 09/24/2020 09/24/2010, 10/25/1999 Depression screening for age 12+ 02/25/2024 02/24/2023, 02/04/2020, 02/23/2019, Additional history exists COVID-19 vaccine series (8 - Pfizer risk season) 2024 05/10/2024, 04/18/2023, 04/02/2022, Additional history exists Influenza Vaccine (#1) 2025 , 04/18/2023, 04/02/2022, Additional history exists BMI (ht and wt on same day) for age 18+ 01/14/2026 01/14/2025, 07/21/2023, 06/11/2023, Additional history exists Colonoscopy through age 75 12/06/202712/05, 12/05/2017, 12/05/2017, Additional history exists Lipids for age 45-75 02/25/2028 02/24/2023, 02/24/2023, 01/11/2022, Additional history exists Medical Devices Implanted Type Area Machine Stemmer Device Identifier Shelf Expiration Date Model / Serial / Lot Cmnt Bone 20g Simplex P Non Atb Mv - [id number] Implanted:Qty: 1 on 03/20/2016 by Kike Raygoza MD at [facility] Right: Shoulder [employer] [id number] 0# / / [id number] Ancr Sut 2.3mm Iconix 25 W/2 Strand #5 Force Fiber - [id number] Implanted:Qty: 2 on 03/20/2016 by Kike Raygoza MD at [facility] Right: Shoulder [employer] [id number]- [id number]# / / [id number] Glenoid Szmed 40mm Aeq Perform - [id number] Implanted:Qty: 1 on 03/20/2016 by Kike Raygoza MD at [facility] Right: Shoulder [employer] [id number]# / [id number] / Stem Hum Sz3 Simpliciti Nucleus Tri Fin - [id number] Implanted:Qty: 1 on 03/20/2016 by Kike Raygoza MD at [facility] Right: Shoulder [employer] 10/16/2020 [id number]# / [id number] / Head Hum [id number] Simpliciti - [id number] Implanted:Qty: 1 on 03/20/2016 by Kike Raygoza MD at [facility] Right: Shoulder [employer] [id number]# / [id number] / Explanted Type Area Machine Stemmer Device Identifier Shelf Expiration Date Model / Serial / Lot Pin Shldr [id number] Aequalis Alignment - [id number] Explanted:Qty: 1 on 03/20/2016 at [facility] Right: Shoulder [employer] [id number]# / / Procedures Procedure Name Priority Date/Time Associated Diagnosis Comments CT CHEST W STAT 12/23/2024 2:00 PM CDT Metastatic cancer to liver (HC) 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) Suspectec Pancreatic adenocarcinoma (HC) BASIC METABOLIC PANEL Routine 12/23/2024 1:47 PM CDT Metastatic cancer to liver (HC) 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) Pancreatic adenocarcinoma (HC) HEPATIC FUNCTION PANEL Routine 12/23/2024 1:47 PM CDT Metastatic cancer to liver (HC) 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) Pancreatic adenocarcinoma (HC) AFP TUMOR MARKER SERUM Routine 12/21/2024 3:33 PM CDT Pancreatic adenocarcinoma (HC) Metastatic cancer to liver (HC) 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) CA 19-9 Routine 12/21/2024 3:33 PM CDT Pancreatic adenocarcinoma (HC) Metastatic cancer to liver (HC) 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) CT ABDOMEN PELVIS W STAT 12/21/2024 1 2:10 PM CDT Continuous RUQ abdominal pain Weight loss Early satiety Lack of appetite Chest pain, unspecified type FELDER (dyspnea on exertion) Reactive gastropathy Liver mass, right lobe CREATININE,ISTAT Routine 12/21/2024 11:3 2 AM CDT Liver mass, right lobe US ABDOMEN LIMITED STAT 12/21/2024 11 :03 AM CDT Continuous RUQ abdominal pain CBC WITH AUTO DIFFERENTIAL Routine 12/21/2024 10:28 AM CDT Continuous RUQ abdominal pain LIPASE Routine 12/21/2024 10:28 AM CDT Continuous RUQ abdominal pain NM CARDIAC MPI STRESS TEST Routine 11/30/2024 9:57 AM CDT Chest discomfort FELDER (dyspnea on exertion) EXTENDED HOLTER Routine 11/30/2024 Chest discomfort FELDER (dyspnea on exertion) LIPID PANEL W REFLEX MEASURED LDL Routine 02/24/2023 1:20 PM CDT 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 Minimally increased indeterminate right lower lobe pulmonary nodule measuring 9 mm, previously [address] from 02/18/2024. Metastatic disease is difficult to exclude. 2. No lymphadenopathy or suspicious osseous lesions. 3. Pancreatic tail cystic mass and suspected gastric and hepatic metastases are better evaluated on recently performed CT abdomen and pelvis. Please note that all CT scans at this facility use dose modulation, iterative reconstruction, and/or weight-based dosing when appropriate to reduce radiation dose to as low as reasonably achievable. Dictated by Charissa Monteiro MD @ 12/23/2024 2:37:44 PM (Electronically Signed) Narrative 12/23/2024 2:37 PM CDT For Patients: As a result of the Cures Act, medical imaging exams and procedure reports are released immediately into your electronic medical record. You may view this report before your referring provider. If you have questions, please contact your health care provider. INDICATION: Metastatic pancreatic cancer TECHNIQUE: CT chest with 100 cc Omnipaque 350 IV contrast. COMPARISON: CT abdomen and pelvis 12/21/2024, chest CT 02/18/2024, CT abdomen pelvis 07/21/2022 FINDINGS: Lungs and pleura: Minimally increased right lower lobe paramediastinal nodule measuring 9 mm (9/62), previously [address] from 02/18/2024 with possible partial calcification. This is likely increased compared to CT from 2022, although is not completely imaged on that exam limiting for comparison. Punctate right lower lobe calcified granuloma. No pleural effusions, pleural thickening, or pneumothorax. Heart and vasculature: Heart size is normal. Thoracic aorta and pulmonary artery are normal in caliber.Moderate coronary artery calcifications Lymph nodes/mediastinum: No mediastinal, hilar, or axillary adenopathy. Chest wall: No masses. Similar left chest wall device Upper abdomen: Ill-defined hypoattenuating right hepatic lobe lesion, left posterior gastric wall lesion and pancreatic tail cystic are largely unchanged from recent prior CT abdomen pelvis. Bones: Unremarkable for age. Procedure Note Charsisa Monteiro MD - 12/23/2024 For Patients: As a result of the Cures Act, medical imagingexams and procedure reports are released immediately into your electronicmedical record. You may view this report before your referring provider.If you have questions, please contact your health care provider. INDICATION: Metastatic pancreatic cancer TECHNIQUE: CT chest with 100 cc Omnipaque 350 IV contrast. COMPARISON: CT abdomen and pelvis 12/21/2024, chest CT 02/18/2024, CT abdomen [id number]/21/2022 FINDINGS: Lungs and pleura: Minimally increased right lower lobe paramediastinalnodule measuring 9 mm (9/62), previously [address] from 02/18/2024 withpossible partial calcification. This is likely increased compared to CTfrom 2022, although is not completely imaged on that exam limiting forcomparison. Punctate right lower lobe calcified granuloma. No pleuraleffusions, pleural thickening, or pneumothorax. Heart and vasculature: Heart size is normal. Thoracic aorta and pulmonaryartery are normal in caliber.Moderate coronary artery calcifications Lymph nodes/mediastinum: No mediastinal, hilar, or axillary adenopathy. Chest wall: No masses. Similar left chest wall device Upper abdomen: Ill-defined hypoattenuating right hepatic lobe lesion, leftposterior gastric wall lesion and pancreatic tail cystic are largelyunchanged from recent prior CT abdomen pelvis. Bones: Unremarkable for age. IMPRESSION: 1. Minimally increased indeterminate right lower lobe pulmonary nodulemeasuring 9 mm, previously [address] from 02/18/2024. Metastatic diseaseis difficult to exclude. 2. No lymphadenopathy or suspicious osseous lesions. 3. Pancreatic tail cystic mass and suspected gastric and hepaticmetastases are better evaluated on recently performed CT abdomen andpelvis. Please note that all CT scans at this facility use dose modulation,iterative reconstruction, and/or weight-based dosing when appropriate toreduce radiation dose to as low as reasonably achievable. Dictated by Charissa Monteiro MD @ 12/23/2024 2:37:44 PM (Electronically Signed) us Marcela Alberto MD CT Fi nal Result * (ABNORMAL) HEPATIC FUNCTION PANEL (12/23/2024 1:47 PM CDT) PROTEIN, TOTAL 6.7 6.1 - 8.1 g/dL [facility] ALBUMIN 4.3 3.6 - 5.1 g/dL [facility] GLOBULIN 2.4 1.9 - 3.7 g/dL (calc) [facility] ALBUMIN/GLOBULIN RATIO 1.8 1.0 - 2.5 (calc) [facility] BILIRUBIN, TOTAL 0.9 0.2 - 1.2 mg/dL [facility] BILIRUBIN, DIRECT 0.1 < OR = 0.2 mg/dL [facility] BILIRUBIN, INDIRECT 0.8 0.2 - 1.2 mg/dL (calc) [facility] ALKALINE PHOSPHATASE 189(H) 35 - 144 U/L [facility] AST 24 10 - 35 U/L [facility] ALT 22 9 - 46 U/L [facility] Blood BLOOD SPECIMEN / Unknown 12/23/2024 1:47 PM CDT 12/23/2024 1:48 PM CDT Lexie REZA CHEMISTRY Final R esult [facility] [address] [place] [address], [facility] [address] [place] [address] * (ABNORMAL) BASIC METABOLIC PANEL (12/23/2024 1:47 PM CDT) GLUCOSE 100(H) 65 - 99 mg/dL [facility] Comment: Fasting reference interval For someone without known diabetes, a glucose value between 100 and 125 mg/dL is consistent with prediabetes and should be confirmed with a follow-up test. UREA NITROGEN (BUN) 15 7 - 25 mg/dL [facility] CREATININE 1.51(H) 0.70 - 1.28 mg/dL [facility] EGFR 49(L) > OR = 60 mL/min/1.7 3m2 [facility] BUN/CREATININE RATIO 10 6 - 22 (calc) [facility] SODIUM 139 135 - 146 mmol/L [facility] POTASSIUM 4.2 3.5 - 5.3 mmol/L [facility] CHLORIDE 102 98 - 110 mmol/L [facility] CARBON DIOXIDE 27 20 - 32 mmol/L [facility] ELECTROLYTE BALANCE 10 7 - 17 mmol/L (calc) [facility] CALCIUM 9.7 8.6 - 10.3 mg/dL [facility] Blood BLOOD SPECIMEN / Unknown 12/23/2024 1:47 PM CDT 12/23/2024 1:48 PM CDT Lexie REZA CHEMISTRY Final R esult Performing Organization Address [facility] Co de Phone Number [facility] [address] [address], [place] [phone] [address] * (ABNORMAL) CA 19-9 (12/21/2024 3:33 PM CDT) [facility] Signature CA 19-9 15,462(H) <34 U/mL [facility] Comment: This test was performed using the Siemens chemiluminescent method. Values obtained from different assay methods cannot be used interchangeably. CA 19-9 levels, regardless of value, should not be interpreted as absolute evidence of the presence or absence of disease. Blood BLOOD SPECIMEN / Unknown 12/21/2024 3:33 PM CDT 12/21/2024 3:34 PM CDT Marcela Alberto MD SEND OUTS Fi nal Result Performing Organization Address City/[facility]/ZIP Co de Phone Number [facility] [address] [place] [address], [place] [phone] [facility] [address] [place] [address] * AFP TUMOR MARKER SERUM (12/21/2024 3:33 PM CDT) ALPHA FETOPROTEIN, TUMOR MARKER 2.7 <6.1 ng/mL [facility] Comment: This test was performed using the Wendy Adelina chemiluminescent method. Values obtained from different assay methods cannot be used interchangeably. AFP levels, regardless of value, should not be interpreted as absolute evidence of the presence or absence of disease. Blood BLOOD SPECIMEN / Unknown 12/21/2024 3:33 PM CDT 12/21/2024 3:34 PM CDT us Marcela Alberto MD SEND OUTS Fi nal Result [facility] [address] [place] [address], [facility] [address] [place] [address] * CT ABDOMEN PELVIS W (12/21/2024 12:10 PM CDT) Anatomical Region Laterality Modality Abdomen, Pelvis, AORTA, LIVER, SPLEEN Computed Tomography 12/21/2024 12:3 5 PM CDT Addenda Addendum by El Hickey MD on 12/21/2024 12:48 PM CDT Indication: Liver mass Technique: CT abdomen/pelvis with IV contrast Comparison: CT abdomen/pelvis on July 21, 2022 Findings: Lower thorax: Solid 6 millimeter pulmonary nodule in the left lower lobe, unchanged dating back to 2022, likely benign. Abdomen/pelvis: Mild diffuse hepatic steatosis. Ill-defined low attenuating lesion in the right hepatic lobe measuring approximately 4 centimeters AP x 3 centimeters transverse by 4 centimeters craniocaudal. The gallbladder and biliary system are unremarkable. The spleen is unremarkable. Low-density cystic like lesion in the pancreatic tail measuring approximately 4.5 centimeters in greatest dimension (AP no pancreatic ductal dilatation. No adrenal nodules. The kidneys, ureters, bladder, seminal vesicles, prostate, and imaged external genitalia are unremarkable. There is a low-density lesion in the wall of the stomach posteriorly, near the gastric fundus measuring approximately 3.2 centimeters in greatest dimension. There is no evidence of bowel obstruction or inflammation. No free air, free fluid, or abscess. There are few small lymph nodes in the upper abdomen without pathologic enlargement. No abdominopelvic lymphadenopathy. Mild calcific atherosclerosis of the aortoiliac system. Soft tissue/musculoskeletal: Diastasis recti with tiny fat containing umbilical hernia. Small bilateral fat containing inguinal hernias. No acute fracture or malalignment. Minimal degenerative changes of the spine. Sacroiliac joints are fused. No suspicious osseous lesions. Impression: 1. No CT evidence of an acute [...] enlarged lymph nodes in the upper abdomen. Please note that all CT scans at this facility use dose modulation, iterative reconstruction, and/or weight-based dosing when appropriate to reduce radiation dose to as low as reasonably achievable. Dictated by El Hickey MD @ 12/21/2024 12:35:25 PM ----- ADDENDUM ----- Report was received by Dr. Alberto @ 1238 hours on 12/21/2024. Dictated by El Hickey MD @ Dec 21 2024 12:47PM (Electronically Signed) Narrative 12/21/2024 12:35 PM CDT For Patients: As a result of the 21st Century Cures Act, medical imaging exams and procedure reports are released immediately into your electronic medical record. You may view this report before your referring provider. If you have questions, please contact your health care provider. Indication: Liver mass Technique: CT abdomen/pelvis with IV contrast Comparison: CT abdomen/pelvis on July 21, 2022 Findings: Lower thorax: Solid 6 millimeter pulmonary nodule in the left lower lobe, unchanged dating back to 2022, likely benign. Abdomen/pelvis: Mild diffuse hepatic steatosis. Ill-defined low attenuating lesion in the right hepatic lobe measuring approximately 4 centimeters AP x 3 centimeters transverse by 4 centimeters craniocaudal. The gallbladder and biliary system are unremarkable. The spleen is unremarkable. Low-density cystic like lesion in the pancreatic tail measuring approximately 4.5 centimeters in greatest dimension (AP no pancreatic ductal dilatation. No adrenal nodules. The kidneys, ureters, bladder, seminal vesicles, prostate, and imaged external genitalia are unremarkable. There is a low-density lesion in the wall of the stomach posteriorly, near the gastric fundus measuring approximately 3.2 centimeters in greatest dimension. There is no evidence of bowel obstruction or inflammation. No free air, free fluid, or abscess. There are few small lymph nodes in the upper abdomen without pathologic enlargement. No abdominopelvic lymphadenopathy. Mild calcific atherosclerosis of the aortoiliac system. Soft tissue/musculoskeletal: Diastasis recti with tiny fat containing umbilical hernia. Small bilateral fat containing inguinal hernias. No acute fracture or malalignment. Minimal degenerative changes of the spine. Sacroiliac joints are fused. No suspicious osseous lesions. Impression: 1. No CT evidence of an acute [...] enlarged lymph nodes in the upper abdomen. Please note that all CT scans at this facility use dose modulation, iterative reconstruction, and/or weight-based dosing when appropriate to reduce radiation dose to as low as reasonably achievable. Dictated by El Hickey MD @ 12/21/2024 12:35:25 PM (Electronically Signed) Procedure Note El Hickey MD - 12/21/2024 For Patients: As a result of the Century Cures Act, medical imagingexams and procedure reports are released immediately into your electronicmedical record. You may view this report before your referring provider.If you have questions, please contact your health care provider. Indication: Liver mass Technique: CT abdomen/pelvis with IV contrast Comparison: CT abdomen/pelvis on July 21, 2022 Findings: Lower thorax: Solid 6 millimeter pulmonary nodule in the left lower lobe, unchangeddating back to 2022, likely benign. Abdomen/pelvis: Mild diffuse hepatic steatosis. Ill-defined low attenuating lesion in theright hepatic lobe measuring approximately 4 centimeters AP x 3centimeters transverse by 4 centimeters craniocaudal. The gallbladder andbiliary system are unremarkable. The spleen is unremarkable. Low-densitycystic like lesion in the pancreatic tail measuring approximately 4.5centimeters in greatest dimension (AP no pancreatic ductal dilatation. No adrenal nodules. The kidneys, ureters, bladder, seminal vesicles, prostate, and imagedexternal genitalia are unremarkable. There is a low-density lesion in the wall of the stomach posteriorly, nearthe gastric fundus measuring approximately 3.2 centimeters in greatestdimension. There is no evidence of bowel obstruction or inflammation. No free air, free fluid, or abscess. There are few small lymph nodes in the upper abdomen without pathologicenlargement. No abdominopelvic lymphadenopathy. Mild calcific atherosclerosis of theaortoiliac system. Soft tissue/musculoskeletal: Diastasis recti with tiny fat containing umbilical hernia. Small bilateralfat containing inguinal hernias. No acute fracture or malalignment. Minimal degenerative changes of thespine. Sacroiliac joints are fused. No suspicious osseous lesions. Impression: 1. No CT evidence of an acute process involving the abdomen or pelvis. 2. There is a low-density lesion in the pancreatic tail measuringapproximately 4.5 centimeters in greatest dimension, somewhat cystic inappearance, concerning for pancreatic adenocarcinoma versus a pancreaticcystic neoplasm. Recommend further assessment with an outpatient abdominalMRI with a pancreatic protocol. 3. Ill-defined low-density lesion in hepatic segment 6 measuringapproximately 4.0 centimeters in greatest dimension, favored to representa metastatic lesion. 4. Additional low-density lesion in the wall of the stomach near thefundus posteriorly, also concerning for a metastatic lesion. 5. There are few indeterminate, non pathologically enlarged lymph nodes inthe upper abdomen. Please note that all CT scans at this facility use dose modulation,iterative reconstruction, and/or weight-based dosing when appropriate toreduce radiation dose to as low as reasonably achievable. Dictated by El Hickey MD @ 12/21/2024 12:35:25 PM (Electronically Signed) us Marcela Alberto MD CT Ed ited Result - Final * (ABNORMAL) POCT Creatinine (12/21/2024 11:32 AM CDT) POCT,CREATININ E, ISTAT 1.4(H) 0.6 - 1.3 mg/dL [facility] Blood BLOOD SPECIMEN / Unknown 12/21/2024 11:32 AM CDT 12/21/2024 11:32 AM CDT us Marcela Alberto MD CHEMISTRY Fi nal Result [facility] [address] [place] [address], [facility] [address] [place] [address] * US ABDOMEN LIMITED (12/21/2024 11:03 AM CDT) Anatomical Region Laterality Modality Abdomen, LIVER, KIDNEYS, PANCREAS, GALLBLADDER, SPLEEN Ultrasound 12/21/2024 11:1 0 AM CDT Addenda Addendum by Cassius Patton MD on 12/21/2024 11:22 AM CDT INDICATION: Right upper quadrant abdomen pain TECHNIQUE: Ultrasound abdomen limited. Sonographic images of the right upper quadrant were obtained using andre-scale and color Doppler images. COMPARISON: None FINDINGS: Liver: Diffusely increased in echogenicity with a focal hypoechoic and heterogeneous area within the right lobe measuring 4.3 x 5.5 x 3.9 centimeters. Gallbladder: No stones or sludge. Normal wall thickness. No pericholecystic fluid. Common bile duct: 5 mm. Pancreas: Obscured by bowel gas. Right kidney: Normal in size. Normal echotexture and cortex. No masses, stones, or hydronephrosis. Vasculature: Proximal abdominal aorta and IVC are normal. IMPRESSION: 1. No evidence of cholelithiasis or cholecystitis. 2. Mild hepatic steatosis with heterogeneous lesion within the right lobe of the liver measuring up to 5.5 centimeters. Abdomen and pelvis CT scan with IV contrast recommended for further characterization. Dictated by Cassius Patton MD @ 12/21/2024 11:10:54 AM ----- ADDENDUM ----- [facility] incidental finding alert tagged and report confirmed received by Dr. Alberto at 11:18 on 12/21/2024. Dictated by Cassius Patton MD @ Dec 21 2024 11:20AM (Electronically Signed) Impressions 12/21/2024 11:10 AM CDT 1. No evidence of cholelithiasis or cholecystitis. 2. Mild hepatic steatosis with heterogeneous lesion within the right lobe of the liver measuring up to 5.5 centimeters. Abdomen and pelvis CT scan with IV contrast recommended for further characterization. Dictated by Cassius Patton MD @ 12/21/2024 11:10:54 AM (Electronically Signed) Narrative 12/21/2024 11:10 AM CDT For Patients: As a result of the Cures Act, medical imaging exams and procedure reports are released immediately into your electronic medical record. You may view this report before your referring provider. If you have questions, please contact your health care provider. INDICATION: Right upper quadrant abdomen pain TECHNIQUE: Ultrasound abdomen limited. Sonographic images of the right upper quadrant were obtained using andre-scale and color Doppler images. COMPARISON: None FINDINGS: Liver: Diffusely increased in echogenicity with a focal hypoechoic and heterogeneous area within the right lobe measuring 4.3 x 5.5 x 3.9 centimeters. Gallbladder: No stones or sludge. Normal wall thickness. No pericholecystic fluid. Common bile duct: 5 mm. Pancreas: Obscured by bowel gas. Right kidney: Normal in size. Normal echotexture and cortex. No masses, stones, or hydronephrosis. Vasculature: Proximal abdominal aorta and IVC are normal. Procedure Note Cassius Patton MD - 12/21/2024 For Patients: As a result of the 21st Century Cures Act, medical imagingexams and procedure reports are released immediately into your electronicmedical record. You may view this report before your referring provider.If you have questions, please contact your health care provider. INDICATION: Right upper quadrant abdomen pain TECHNIQUE: Ultrasound abdomen limited. Sonographic images of the right upperquadrant were obtained using andre-scale and color Doppler images. COMPARISON: None FINDINGS: Liver: Diffusely increased in echogenicity with a focal hypoechoic andheterogeneous area within the right lobe measuring 4.3 x 5.5 x 3.9centimeters. Gallbladder: No stones or sludge. Normal wall thickness. Nopericholecystic fluid. Common bile duct: 5 mm. Pancreas: Obscured by bowel gas. Right kidney: Normal in size. Normal echotexture and cortex. No masses,stones, or hydronephrosis. Vasculature: Proximal abdominal aorta and IVC are normal. IMPRESSION: 1. No evidence of cholelithiasis or cholecystitis. 2. Mild hepatic steatosis with heterogeneous lesion within the right lobeof the liver measuring up to 5.[address] Ab[address]en and pelvis CT scanwith IV contrast recommended for further characterization. Dictated by Cassius Patton MD @ 12/21/2024 11:10:54 AM (Electronically Signed) Marcela Alberto MD Ed ited Result - Final * (ABNORMAL) CBC AND DIFFERENTIAL (12/21/2024 10:28 AM CDT) WHITE BLOOD CELL COUNT 11.6(H) 3.8 - 10.8 Thousand/u L [facility] RED BLOOD CELL COUNT 5.09 4.20 - 5.80 Million/uL [facility] HEMOGLOBIN 15.8 13.2 - 17.1 g/dL [facility] HEMATOCRIT 47.6 38.5 - 50.0 % [facility] MCV 93.5 80.0 - 100.0 fL [facility] MCH 31.0 27.0 - 33.0 pg [facility] MCHC 33.2 32.0 - 36.0 g/dL [facility] Comment: For adults, a slight decrease in the calculated MCHC value (in the range of 30 to 32 g/dL) is most likely not clinically significant; however, it should be interpreted with caution in correlation with other red cell parameters and the patient's clinical condition. RDW 13.3 11.0 - 15.0 % [facility] PLATELET COUNT 205 140 - 400 Thousand/u L [facility] MPV 12.2 7.5 - 12.5 fL [facility] ABSOLUTE NEUTROPHILS 7,482 1,500 - 7,800 cells/uL [facility] ABSOLUTE LYMPHOCYTES 2,946 850 - 3,900 cells/uL [facility] ABSOLUTE MONOCYTES 835 200 - 950 cells/uL [facility] ABSOLUTE EOSINOPHILS 255 15 - 500 cells/uL [facility] ABSOLUTE BASOPHILS 81 0 - 200 cells/uL [facility] NEUTROPHILS 64.5 % [facility] LYMPHOCYTES 25.4 % [facility] MONOCYTES 7.2 % [facility] EOSINOPHILS 2.2 % [facility] BASOPHILS 0.7 % [facility] Blood BLOOD SPECIMEN / Unknown 12/21/2024 10:28 AM CDT 12/21/2024 10:28 AM CDT Marcela Alberto MD HEMATOLOGY Fi nal Result [facility] [address] [place] [address], [facility] [address] [place] [address] * LIPASE (12/21/2024 10:28 AM CDT) LIPASE 36 7 - 60 U/L [facility] Blood BLOOD SPECIMEN / Unknown 12/21/2024 10:28 AM CDT 12/21/2024 10:28 AM CDT Marcela Alberto MD CHEMISTRY Fi nal Result [facility] [address] [place] [address], [facility] [address] [place] [address] * NM CARDIAC MPI STRESS TEST (11/30/2024 9:57 AM CDT) Anatomical Region Laterality Modality HEART Nuclear Medicine 11/30/2024 6:48 AM CDT Narrative 11/30/2024 1:[address]T 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 Amara Osborne MD [facility] Accredited Site (Electronically Signed) Final Date: 30 Nov 2024 13:07 ICD-10 Codes: R06.09; R07.89 CC Providers: Dr. Lexie Dale Procedure Note Amara Osborne MBBS - 11/30/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 Amara Osborne MD [facility] Accredited Site (Electronically Signed) Final Date: 30 Nov 2024 13:07 ICD-10 Codes: R06.09; R07.89 CC Providers: Dr. Lexie Dale us Junior Jenkins MD NM Final Result * ZIO PATCH XT - weekly to monthly symptoms. (11/30/2024) 11/30/2024 Narrative Kike Ogden MD - 12/29/2024 12:00 AM CDT Sinus rhythm with an average HR of 79 bpm. PVC burden was frequent, 5.5%. No atrial fibrillation. Symptomatic transmissions showed sinus rhythm/tachycardia with above mentioned PVCs, ventricular bi/trigeminy, rare couplets, and heart rates ranging between 62-128 bpm. One 4 beat run of NSVT at a rate of 174 bpm. One 5 beat run of NSAT at a rate of 108 bpm. Please see scan document for full report. Signed By Kike Ogden MD Procedure Note Kike Ogden MD - 12/29/2024 Sinus rhythm with an average HR of 79 bpm. PVC burden was frequent, 5.5%. No atrial fibrillation. Symptomatic transmissions showed sinus rhythm/tachycardia with abovementioned PVCs, ventricular bi/trigeminy, rare couplets, and heart ratesranging between 62-128 bpm. One 4 beat run of NSVT at a rate of 174 bpm. One 5 beat run of NSAT at arate of 108 bpm. Please see scan document for full report. Signed By Kike Ogden MD us Junior Jenkins MD CARDIAC SERVICES ORD Final R esult * (ABNORMAL) LIPID PANEL W REFLEX MEASURED LDL (02/24/2023 1:20 PM CDT) CHOLESTEROL,TOTAL 148 100 - 199 mg/dL 02/25/2023 1:09 AM CDT [facility] Comment: Cholesterol, Total Reference Ranges Desirable <200 mg/dL Borderline 200-239 mg/dL High >=240 mg/dL TRIGLYCERIDES 765(H) <150 mg/dL 02/25/2023 1:09 AM CDT [facility] HDL CHOLESTEROL 25(L) >40 mg/dL 3 1:09 AM CDT [facility] NON-HDL CHOLESTEROL 123 <145 mg/dl 02/25/2023 1:09 AM T [facility] CHOL/HDL RATIO 5.92(H) <4.50 02/25/2023 1:09 AM CDT [facility] LDL CHOLESTEROL 3 1:09 AM T [facility] Comment:Invalid LDL when Tri g >400. VLDL CHOLESTEROL COMMENT 02/25/2023 1:09 AM CDT [facility] Comment:Unable to calculate VLDL. PROVIDER ORDERED STATUS RANDOM 02/25/2023 1:09 AM T [facility] Blood BLOOD SPECIMEN / Unknown Venipuncture / Unknown 02/24/2023 1:20 PM CDT 02/24/2023 1:22 PM CDT us Lexie REZA CHEMISTRY Final R esult [facility] [address] [place] [address], [place] * COLONOSCOPY (12/05/2017 8:58 AM CDT) 12/05/2017 8:58 AM CDT Narrative Transcriptions Jensen Millan MD - 12/05/2017 10:30 AM CDT Patient Name: Noel Mata Procedure Date: 12/05/2017 Gender: Male Date of [...] reponse to care. [facility] and nursing [facility] for moderate sedation details. Total physician intraservice time was 16 minutes. Jensen Millan MD 12/05/2017 10:30:48 AM This report has been signed electronically. Note Initiated On: 12/05/2017 8:58 AM Procedure Code(s): --- Professional --- 11420, Colonoscopy, flexible; diagnostic, including collection of specimen(s) bybrushing or washing, when performed (separateprocedure) Diagnosis Code(s): --- Professional --- K92.1, Melena (includes Hematochezia) CPT copyright 2017 [employer]. All rights reserved. The codes documented in this report are preliminary and upon manager chemistry reviewmay be revised to meet current compliance requirements. Scope In: 10:12:45 AM Scope Withdrawal Time 0 hours 9 minutes 26 seconds Scope Out: 10:26:57 AM us Jensen Millan MD PROCEDURE ORD Final Res ult from Last 3 Months or Most Recently Relevant to Health Maintenance Insurance MEDICARE PART B HB ONLY [place] PB ONLY [place] HB ONLY MEDICARE PART A HB ONLY [place] PB ONLY [place] HB ONLY MEDICARE PART A HB [...] Comments Code Status Discussion: Discussed Care Teams Policy Checker Relationship Specialty Start Date End Date Lexie Dale [place] [address] [place] [address] PCP - General Family Practice 08/03/13 Junior Jenkins MD [address] [facility] [address] [place] [address] Consulting Physician Cardiovascular Disease 12/20/24 Sonia Treviño, RN [address] [facility] [place] [id number] Nurse Navigator - Oncology Registered Nurse 12/23/24
--- OUTSIDE RECORDS SUMMARY | 2025-01-30 17:42 | XMS_ITS | Encounter Summary ---
Author Organization [facility] Address [address] [place] [id number] Care Team Providers Care Site Reliability Engineer Name Role Phone Elsewhere, Pcp Primary Care Provider Unavailabl e Reason for Visit * Reason Onset Date Comments Appt Request 12/29/2024 Encounter Details Date Type Department Care Team (Latest Contact Info) Description 12/29/2024 Clinical Communication Division of Gastroenterology in [place], [place] [address] [place] [phone] Drea Means APRN, C.N.P., D.N.P. [address] [place] [phone] Appt Request Social History Tobacco Use Types Packs/Day Years Used Date Smoking Tobacco: Never Passive Smoke Exposure: Past Smokeless Tobacco: Never Passive Exposure Comments:Ch ildhood exposure. Alcohol Use Standard Drinks/Week Comments Not Currently 1 (1 standard drink = 0.6 oz pur e alcohol) 0-1 drink per week [facility] Utilities Answer Date Recorded In the past 12 months has [employer], gas, oil, or water company threatened [...] your living situation today? I have a [facility] place to live 12/23/2024 Sex and Gender Information Value Date Recorded Sex Assigned at Male 09/10/2023 7:48 AM FIRST LINE SUPERVISOR Legal Sex Male 10:11 PM FIRST LINE SUPERVISOR Gender Identity Male 09/10/2023 7:48 AM FIRST LINE SUPERVISOR Sexual Orientation Straight 09/10/2023 7: 48 AM FIRST LINE SUPERVISOR documented as of this encounter Miscellaneous Notes * Telephone Encounter - Jie Womack R.N. - 01/04/2025 9:47 AM CDT Oncology Nurse Intake & Review Diagnosis:Pancreatic Cancer Diagnosis Date: 12/30/2024 History of present illness (as obtained through pt's medical record): Please reference patient's Oncology History for the most up-to-date information. For convenience, the patient's Oncology History as of 01/04/25 9:47 AM is copied below. Oncology History can be found in Chart Review-- SnapShot-- Problem List-- and then by clicking the blue Oncology History hyperlink beneath the patient's cancer diagnosis. Oncology History Overview Note December 21, 2024 [...] Genotyping Cell-Free DNA KRAS: Result Summary POSITIVE Primary care provider: Review complete. LIBIA Nye BSN, RN [place] Nurse [employer] [facility] documented in this encounter Plan of Treatment Upcoming Encounters Date Type Department Care Team (Latest Contact Info) Description 02/04/2025 7:00 AM CDT Lab Department of Infusion Therapy in [place], [place] [address] [place] [phone] Skip Amaya M.D., Ph.D. [address] [place] [phone] 02/04/2025 8:20 AM CDT Office Visit Department of Oncology in [place], [place] [address] [place] [phone] Jag Frye, KASH, C.N.P., D.N.P. [address] [place] [phone] 02/04/2025 2:00 PM CDT Infusion Department of Oncology in [place], [place] [address] [place] [phone] Skip Amaya M.D., Ph.D. [address] [place] [phone] 02/08/2025 2:15 PM CDT Clinical Communication Virtual Review in [place], [place] 200 [place] [address] 02/09/2025 9:30 AM CDT Telemedicine Department of Oncology in [address] [address] Jesica Wasserman M.B., B.Ch. [address] [place] [phone] Cecily Nash L.I.C.S.W. [address] [place] [phone] 02/10/2025 12:00 PM CDT Lab Department of Infusion Therapy in [place], [place] [address] [place] [phone] Skip Amaya M.D., Ph.D. [address] [place] [phone] 02/10/2025 2:30 PM CDT Office Visit Department of Oncology in [address] [phone] Rosenda Garza MPAS, P.A.-C. [address] [place] [phone] 02/11/2025 8:00 AM CDT Infusion Department of Oncology in [address] [address] Skip Amaya M.D., Ph.D. [address] [place] [phone] 02/23/2025 2:15 PM CDT Clinical Communication Virtual Review in [address] [phone] 02/25/2025 8:30 AM CDT Lab Department of Oncology in [address] [address] Skip Amaya M.D., Ph.D. [address] [place] [phone] 02/25/2025 10:40 AM CDT Office Visit Department of Oncology in [address] [phone] Sandy Judge, KASH, C.N.P., M.S. [address] [place] [phone] 02/25/2025 11:30 AM CDT Infusion Department of Oncology in [place], [place] [address] [place] [phone] Skip Amaya M.D., Ph.D. [address] [place] [phone] 03/04/2025 6:00 AM CDT Lab Department of Infusion Therapy in [place], [place] [address] [place] [phone] Skip Amaya M.D., Ph.D. [address] [place] [phone] 03/04/2025 8:10 AM CDT Office Visit Department of Oncology in [address] [phone] Jie Shook P.A.-C. [address] [place] [phone] 03/04/2025 9:30 AM CDT Infusion Department of Oncology in [address] [phone] Skip Amaya M.D., Ph.D. [address] [place] [phone] 03/10/2025 2:15 PM CDT Clinical Communication Virtual Review in [place], [place] 200 [place] [address] 03/11/2025 6:00 AM CDT Lab Department of Laboratory Medicine and Pathology, [facility], in [address] [address] Skip Amaya M.D., Ph.D. [address] [place] [phone] 03/11/2025 7:20 AM CDT Office Visit Department of Oncology in [place], [place] [address] [place] [phone] Bipin Leal P.A.-C., M.S. [address] [place] [phone] 03/11/2025 8:00 AM CDT Infusion Department of Oncology in [place], [place] [address] [place] [phone] Skip Amaya M.D., Ph.D. [address] [place] [phone] 03/24/2025 11:20 AM CDT Lab Department of Infusion Therapy in [address] [address] Skip Amaya M.D., Ph.D. [address] [place] [phone] 03/24/2025 1:30 PM CDT Office Visit Department of Oncology in [address] [address] Skip Amaya M.D., Ph.D. [address] [place] [phone] 03/25/2025 7:00 AM CDT Infusion Department of Oncology in [address] [address] Skip Amaya M.D., Ph.D. [address] [place] [phone] 03/29/2025 2:30 PM CDT Clinical Communication Virtual Review in [place], [place] 200 [place] [address] 04/01/2025 6:00 AM CDT Lab Department of Infusion Therapy in [address] [address] Skip Amaya M.D., Ph.D. [address] [place] [phone] 04/01/2025 8:20 AM CDT Office Visit Department of Oncology in [place], [place] [address] [place] [phone] Precious Hill M.D., Ph.D. [address] [place] [phone] 04/01/2025 9:00 AM CDT Infusion Department of Oncology in [place], [place] [address] [place] [phone] Skip Amaya M.D., Ph.D. [address] [place] [phone] 04/07/2025 11:00 AM CDT Lab Department of Infusion Therapy in [address] [address] Skip Amaya M.D., Ph.D. [address] [place] [phone] 04/07/2025 1:20 PM CDT Office Visit Department of Oncology in [address] [phone] Sandy Judge, KASH, C.N.P., M.S. [address] [place] [phone] 04/08/2025 7:00 AM CDT Infusion Department of Oncology in [address] [address] Skip Amaya M.D., Ph.D. [address] [place] [phone] 04/21/2025 7:15 AM CDT Clinical Communication Virtual Review in [place], [place] 200 [place] [address] 04/22/2025 7:20 AM CDT Lab Department of Infusion Therapy in [place], [place] [address] [place] [phone] Skip Amaya M.D., Ph.D. [address] [place] [phone] 04/22/2025 9:20 AM CDT Office Visit Department of Oncology in [place], [place] [address] [place] [phone] Sandy Judge, KASH, C.N.P., M.S. [address] [place] [phone] 04/22/2025 10:30 AM CDT Infusion Department of Oncology in [place], [place] [address] [place] [phone] Skip Amaya M.D., Ph.D. [address] [place] [phone] documented as of this encounter Goals Goal Patient Goal Type Associated Problems Recent Progress Patient-Stated? Author Autogenerat ed Goal Care Plan Autogenerated Problem Hedy Frankel, RJusytnN. documented as of this encounter Visit Diagnoses Not on filedocumented in this encounter Additional Health Concerns Active Problems Noted Date Diagnosed Date Autogenerated Problem 11/16/2024 Infection Onset Date Last Indicated Resolved Time Protective Environment 01/28/2025 01/28/2025 documented as of this encounter Care Teams Site Reliability Engineer Relationship Specialty Start Date End Date Elsewhere, Pcp PCP - General Internal Medicine 09/09/23 documented as of this encounter
--- OUTSIDE RECORDS SUMMARY | 2025-01-30 17:42 | XMS_ITS | Encounter Summary ---
Author Organization [facility] Address [address] [place] [address] Care Team Providers Care Processing Technologist Name Role Phone Elsewhere, Pcp Primary Care Provider Unavailabl e Reason for Visit * Reason Onset Date Comments Slides returned NOT read 12/29/2024 Encounter Details Date Type Department Care Team (Latest Contact Info) Description 12/29/2024 Clinical Communication Division of Gastroenterology in [place], [place] [address] [place] [address] Prescheduling, Provider Slides returned NOT read Social History Tobacco Use Types Packs/Day Years Used Date Smoking Tobacco: Never Passive Smoke Exposure: Past Smokeless Tobacco: Never Passive Exposure Comments:Ch ildhood exposure. Alcohol Use Standard Drinks/Week Comments Not Currently 1 (1 standard drink = 0.6 oz pur e alcohol) 0-1 drink per week [facility] Utilities Answer Date Recorded In the past 12 months has [employer], gas, oil, or water [employer] threatened to shut off services in your [...] living situation today? 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 [address] [place] [phone] 02/04/2025 8:20 AM CDT Office Visit Department of Oncology in [address] [phone] Jag Frye, KASH, C.N.P., D.N.P. [address] [place] [phone] 02/04/2025 2:00 PM CDT Infusion Department of Oncology in [place], [place] [address] [place] [phone] Skip Amaya M.D., Ph.D. [address] [place] [phone] 02/08/2025 2:15 PM CDT Clinical Communication Virtual Review in [place], [place] 200 [place] [address] 02/09/2025 9:30 AM CDT Telemedicine Department of Oncology in [address] [phone] Jesica Wasserman M.B., B.Ch. [address] [place] [address] Cecily Nash L.I.C.S.W. [address] [place] [address] 02/10/2025 12:00 PM CDT Lab Department of Infusion Therapy in [place], [place] [address] [place] [phone] Skip Amaya M.D., Ph.D. [address] [place] [phone] 02/10/2025 2:30 PM CDT Office Visit Department of Oncology in [place], [place] [address] [place] [phone] Rosenda Garza, KRISHNAS, P.A.-C. [address] [place] [phone] 02/11/2025 8:00 AM CDT Infusion Department of Oncology in [place], [place] [address] [place] [phone] Skip Amaya M.D., Ph.D. [address] [place] [phone] 02/23/2025 2:15 PM CDT Clinical Communication Virtual Review in [place], [place] 200 [place] [address] 02/25/2025 8:30 AM CDT Lab Department of Oncology in [place], [place] [address] [place] [phone] Skip Amaya M.D., Ph.D. [address] [place] [phone] 02/25/2025 10:40 AM CDT Office Visit Department of Oncology in [place], [place] [address] [place] [phone] Sandy Judge APRN, C.N.P., M.S. [address] [place] [phone] 02/25/2025 11:30 AM CDT Infusion Department of Oncology in [place], [place] [address] [place] [phone] Skip Amaya M.D., Ph.D. [address] [place] [phone] 03/04/2025 6:00 AM CDT Lab Department of Infusion Therapy in [address] [address] Skip Amaya M.D., Ph.D. [address] [place] [phone] 03/04/2025 8:10 AM CDT Office Visit Department of Oncology in [place], [place] [address] [place] [phone] Jie Shook P.A.-C. [address] [place] [phone] 03/04/2025 9:30 AM CDT Infusion Department of Oncology in [place], [place] [address] [place] [phone] Skip Amaya M.D., Ph.D. [address] [place] [phone] 03/10/2025 2:15 PM CDT Clinical Communication Virtual Review in [place], [place] 200 [place] [address] 03/11/2025 6:00 AM CDT Lab Department of Laboratory Medicine and Pathology, [place], in [place], [place] [address] [place] [phone] Skip Amaya M.D., Ph.D. [address] [place] [phone] 03/11/2025 7:20 AM CDT Office Visit Department of Oncology in [place], [place] [address] [place] [phone] Bipin Leal P.A.-C., M.S. [address] [place] [phone] 03/11/2025 8:00 AM CDT Infusion Department of Oncology in [place], [place] [address] [place] [phone] Skip Amaya M.D., Ph.D. [address] [place] [phone] 03/24/2025 11:20 AM CDT Lab Department of Infusion Therapy in [place], [place] [address] [place] [phone] Skip Amaya M.D., Ph.D. [address] [place] [phone] 03/24/2025 1:30 PM CDT Office Visit Department of Oncology in [place], [place] [address] [place] [phone] Skip Amaya M.D., Ph.D. [address] [place] [phone] 03/25/2025 7:00 AM CDT Infusion Department of Oncology in [place], [place] [address] [place] [phone] Skip Amaya M.D., Ph.D. [address] [place] [phone] 03/29/2025 2:30 PM CDT Clinical Communication Virtual Review in [place], [place] 200 [place] [address] 04/01/2025 6:00 AM CDT Lab Department of Infusion Therapy in [address] [address] Skip Amaya M.D., Ph.D. [address] [place] [phone] 04/01/2025 8:20 AM CDT Office Visit Department of Oncology in [address] [address] Precious Hill M.D., Ph.D. [address] [place] [phone] 04/01/2025 9:00 AM CDT Infusion Department of Oncology in [address] [address] Skip Amaya M.D., Ph.D. [address] [place] [phone] 04/07/2025 11:00 AM CDT Lab Department of Infusion Therapy in [address] [address] Skip Amaya M.D., Ph.D. [address] [place] [phone] 04/07/2025 1:20 PM CDT Office Visit Department of Oncology in [address] [address] Sandy Judge, KASH, C.N.P., M.S. [address] [place] [phone] 04/08/2025 7:00 AM CDT Infusion Department of Oncology in [place], [place] [address] [place] [phone] Skip Amaya M.D., Ph.D. [address] [place] [phone] 04/21/2025 7:15 AM CDT Clinical Communication Virtual Review in [place], [place] 200 [place] [address] 04/22/2025 7:20 AM CDT Lab Department of Infusion Therapy in [place], [place] [address] [place] [phone] Skip Amaya M.D., Ph.D. [address] [place] [phone] 04/22/2025 9:20 AM CDT Office Visit Department of Oncology in [address] [phone] Sandy Judge, KASH, C.N.P., M.S. [address] [place] [phone] 04/22/2025 10:30 AM CDT Infusion Department of Oncology in [address] [address] Skip Amaya M.D., Ph.D. [address] [place] [phone] documented as of this encounter Goals Goal Patient Goal Type Associated Problems Recent Progress Patient-Stated? Author Autogenerat ed Goal Care Plan Autogenerated Problem Hedy Frankel R.N. documented as of this encounter Visit Diagnoses Not on filedocumented in this encounter Additional Health Concerns Active Problems Noted Date Diagnosed Date Autogenerated Problem 11/16/2024 documented as of this encounter Care Teams Processing Technologist Relationship Specialty Start Date End Date Elsewhere, Pcp PCP - General Internal Medicine 3/5/24 documented as of this encounter
--- OUTSIDE RECORDS SUMMARY | 2025-01-30 17:42 | XMS_ITS | Encounter Summary ---
Author Organization [facility] Address [address] [place] [address] Care Team Providers Care Rn Case Manager Hospice Name Role Phone Elsewhere, Pcp Primary Care Provider Unavailabl e Encounter Details Date Type Department Care Team (Latest Contact Info) Description 12/29/2024 Results Follow-Up Division of Gastroenterology in [place], [place] [address] [place] [address] Drea Means APRN, C.N.P., D.N.P. [address] [place] [phone] CBC with Differential, Blood, Comprehensive Metabolic Panel, Bilirubin, Direct, Additional followed-up results: 4 Social History Tobacco Use Types Packs/Day Years Used Date Smoking Tobacco: Never Passive Smoke Exposure: Past Smokeless Tobacco: Never Passive Exposure Comments: ildhood exposure. Alcohol Use Standard Drinks/Week Comments Not Currently 1 (1 standard drink = 0.6 oz pur e alcohol) 0-1 drink per week [facility] Utilities Answer Date Recorded In the past 12 months has [employer] electric, gas, oil, or water company threatened [...] your living situation today? I have a [facility] place to live 12/23/2024 Sex and Gender Information Value Date Recorded Sex Assigned at Male 09/10/2023 7:48 AM MAINTENANCE TECHNICIAN Legal Sex Male 10:11 PM MAINTENANCE TECHNICIAN Gender Identity Male 09/10/2023 7:48 AM MAINTENANCE TECHNICIAN Sexual Orientation Straight 09/10/2023 7: 48 AM MAINTENANCE TECHNICIAN documented as of this encounter Plan of Treatment Upcoming Encounters Date Type Department Care Team (Latest Contact Info) Description 02/04/2025 7:00 AM CDT Lab Department of Infusion Therapy in [address] [address] Skip Amaya M.D., Ph.D. [address] [place] [phone] 02/04/2025 8:20 AM CDT Office Visit Department of Oncology in [address] [address] Jag Frye, KASH, C.N.P., D.N.P. [address] [place] [phone] 02/04/2025 2:00 PM CDT Infusion Department of Oncology in [address] [address] Skip Amaya M.D., Ph.D. [address] [place] [phone] 02/08/2025 2:15 PM CDT Clinical Communication Virtual Review in [place], [place] 200 [place] [address] 02/09/2025 9:30 AM CDT Telemedicine Department of Oncology in [place] [address] [place] [address] Jesica Wasserman M.B., B.Ch. [address] [place] [phone] Cecily Nash L.I.C.SJustynW. [facility] [place] [address] 02/10/2025 12:00 PM CDT Lab Department of Infusion Therapy in [place], [place] [address] [place] [phone] Skip Amaya M.D., Ph.D. [address] [place] [phone] 02/10/2025 2:30 PM CDT Office Visit Department of Oncology in [place], [place] [address] [place] [phone] Rosenda Garza MPAS, P.A.-C. [address] [place] [address] 02/11/2025 8:00 AM CDT Infusion Department of Oncology in [place], [place] [address] [place] [phone] Skip Amaya M.D., Ph.D. [address] [place] [address] 02/23/2025 2:15 PM CDT Clinical Communication Virtual Review in [place], [place] 200 [place] [address] 02/25/2025 8:30 AM CDT Lab Department of Oncology in [place], [place] [address] [place] [phone] Skip Amaya M.D., Ph.D. [address] [place] [address] 02/25/2025 10:40 AM CDT Office Visit Department of Oncology in [place], [place] [address] [place] [phone] Sandy Judge, KASH, C.N.P., M.S. [address] [place] [phone] 02/25/2025 11:30 AM CDT Infusion Department of Oncology in [place], [place] [address] [place] [phone] Skip Amaya M.D., Ph.D. [address] [place] [address] 03/04/2025 6:00 AM CDT Lab Department of Infusion Therapy in [address] [address] Skip Amaya M.D., Ph.D. [address] [place] [phone] 03/04/2025 8:10 AM CDT Office Visit Department of Oncology in [place], [place] [address] [place] [phone] Jie Shook P.A.-C. [address] [place] [address] 03/04/2025 9:30 AM CDT Infusion Department of Oncology in [place], [place] [address] [place] [phone] Skip Amaya M.D., Ph.D. [address] [place] [phone] 03/10/2025 2:15 PM CDT Clinical Communication Virtual Review in [place], [place] 200 [place] [address] 03/11/2025 6:00 AM CDT Lab Department of Laboratory Medicine and Pathology, [facility], in [place], [place] [address] [place] [phone] Skip Amaya M.D., Ph.D. [address] [place] [phone] 03/11/2025 7:20 AM CDT Office Visit Department of Oncology in [address] [address] Bipin Leal P.A.-C., M.S. [address] [place] [phone] 03/11/2025 8:00 AM CDT Infusion Department of Oncology in [address] [address] Skip Amaya M.D., Ph.D. [address] [place] [phone] 03/24/2025 11:20 AM CDT Lab Department of Infusion Therapy in [address] [address] Skip Amaya M.D., Ph.D. [address] [place] [phone] 03/24/2025 1:30 PM CDT Office Visit Department of Oncology in [address] [address] Skip Amaya M.D., Ph.D. [address] [place] [phone] 03/25/2025 7:00 AM CDT Infusion Department of Oncology in [place], [place] [address] [place] [address] Skip Amaya M.D., Ph.D. [address] [place] [phone] 03/29/2025 2:30 PM CDT Clinical Communication Virtual Review in [place], [place] 200 [place] [address] 04/01/2025 6:00 AM CDT Lab Department of Infusion Therapy in [address] [address] Skip Amaya M.D., Ph.D. [address] [place] [phone] 04/01/2025 8:20 AM CDT Office Visit Department of Oncology in [address] [address] Precious Hill M.D., Ph.D. [address] [place] [phone] 04/01/2025 9:00 AM CDT Infusion Department of Oncology in [address] [address] Skip Amaya M.D., Ph.D. [address] [place] [address] 04/07/2025 11:00 AM CDT Lab Department of Infusion Therapy in [address] [address] Skip Amaya M.D., Ph.D. [address] [place] [phone] 04/07/2025 1:20 PM CDT Office Visit Department of Oncology in [place], [place] [address] [place] [phone] Sandy Judge APRN, C.N.Bhavin., M.S. [address] [place] [phone] 04/08/2025 7:00 AM CDT Infusion Department of Oncology in [address] [address] Skip Amaya M.D., Ph.D. [address] [place] [phone] 04/21/2025 7:15 AM CDT Clinical Communication Virtual Review in [address] [address] 04/22/2025 7:20 AM CDT Lab Department of Infusion Therapy in [address] [address] Skip Amaya M.D., Ph.D. [address] [place] [phone] 04/22/2025 9:20 AM CDT Office Visit Department of Oncology in [address] [address] Sandy Judge APRN, C.N.Bhavin., M.S. [address] [place] [phone] 04/22/2025 10:30 AM CDT Infusion Department of Oncology in [address] [address] Skip Amaya M.D., Ph.D. [address] [place] [phone] documented as of this encounter Goals Goal [...] documented as of this encounter Care Teams Rn Case Manager Hospice Relationship Specialty Start Date End Date Elsewhere, Pcp PCP - General Internal Medicine 09/09/23 documented as of this encounter
--- OUTSIDE RECORDS SUMMARY | 2025-01-30 17:43 | XMS_ITS | Encounter Summary ---
Author Organization [facility] Address [address] [place] [address] Care Team Providers Care Head Strength And Conditioning Coach Name Role Phone Elsewhere, Pcp Primary Care Provider Unavailabl e Reason for Referral * Outpatient (Routine) - Authorized Specialty Diagnoses / Procedures Referred By Meeta t Referred To Contact Social Work Skip Amaya M.D., Ph.D. [address] [place] [phone] Phone: tel: fax: [facility] Referral ID Status Reason Start Date Expiration Date V isits Requested Visits Authorized [id number] Authorized 01/23/2025 07/25/2026 1 1 Scheduling Instructions [facility] Distress Management Screening * Outpatient (Routine) - Closed Specialty Diagnoses / Procedures Referred By Contomid t Referred To Contact Oncology Skip Amaya M.D., Ph.D. [address] [place] [phone] Phone: tel: fax: [facility] Referral ID Status Reason Start Date Expiration Date Visits Re quested Visits Authorized [id number] Closed 01/23/2025 07/25/2026 1 1 Scheduling Instructions [facility] Distress Management Screening Encounter Details Date Type Department Care Team (Late st Contact Info) Description 01/23/2025 Orders Only Department of Oncology in [place], [place] [address] [place] [address] Skip Amaya M.D., Ph.D. [address] [place] [address] Social History Tobacco Use Types Packs/Day Years Used Date Smoking Tobacco: Never Passive Smoke Exposure: Past Smokeless Tobacco: Never Passive Exposure Comments:Ch ildhood exposure. Alcohol Use Standard Drinks/Week Comments Not Currently 1 (1 standard drink = 0.6 oz pur e alcohol) 0-1 drink per week [facility] Utilities Answer Date Recorded In [...] your living situation today? I have a [facility] place to live 12/23/2024 Education Answer Date Recorded What is the highest level of school you have completed or the highest degree you have received? Master's degree (e.g., MA, MS, Katelyn, MEd, DIRECTOR OF STUDENT FINANCIAL AID, KELLEE) 01/05/2025 Sex and Gender Information Value Date Recorded Sex Assigned at Male 09/10/2023 7:48 AM CHAIR MECHANIC Legal Sex Male 10:11 PM CHAIR MECHANIC Gender Identity Male 09/10/2023 7:48 AM CHAIR MECHANIC Sexual Orientation Straight 09/10/2023 7: 48 AM CHAIR MECHANIC documented as of this encounter Plan of Treatment Upcoming Encounters Date Type Department Care Team (Latest Contact Info) Description 02/04/2025 7:00 AM CDT Lab Department of Infusion Therapy in [place], [place] [address] [place] [address] Skip Amaya M.D., Ph.D. [address] [place] [phone] 02/04/2025 8:20 AM CDT Office Visit Department of Oncology in [place], [place] [address] [place] [phone] Jag Frye, KASH, C.N.P., D.N.P. [address] [place] [phone] 02/04/2025 2:00 PM CDT Infusion Department of Oncology in [place], [place] [address] [place] [address] Skip Amaya M.D., Ph.D. [address] [place] [phone] 02/08/2025 2:15 PM CDT Clinical Communication Virtual Review in [place], [place] 200 [place] [address] 02/09/2025 9:30 AM CDT Telemedicine Department of Oncology in [address] [address] eJsica Wasserman M.B., B.Ch. [address] [place] [address] Cecily Nash L.I.CJustynSJustynWJustyn [address] [place] [address] 02/10/2025 12:00 PM CDT Lab Department of Infusion Therapy in [address] [address] Skip Amaya M.D., Ph.D. [address] [place] [phone] 02/10/2025 2:30 PM CDT Office Visit Department of Oncology in [address] [address] Rosenda Garza MPAS, P.A.-C. [address] [place] [phone] 02/11/2025 8:00 AM CDT Infusion Department of Oncology in [address] [address] Skip Amaya M.D., Ph.D. [address] [place] [phone] 02/23/2025 2:15 PM CDT Clinical Communication Virtual Review in [place], [place] 200 [place] [address] 02/25/2025 8:30 AM CDT Lab Department of Oncology in [address] [address] Skip Amaya M.D., Ph.D. [address] [place] [phone] 02/25/2025 10:40 AM CDT Office Visit Department of Oncology in [address] [address] Sandy Judge, HOTEL BREAKFAST ATTENDANT, C.N.P., M.S. [address] [place] [phone] 02/25/2025 11:30 AM CDT Infusion Department of Oncology in [place], [place] [address] [place] [address] Skip Amaya M.D., Ph.D. [address] [place] [phone] 03/04/2025 6:00 AM CDT Lab Department of Infusion Therapy in [place], [place] [address] [place] [address] Skip Amaya M.D., Ph.D. [address] [place] [phone] 03/04/2025 8:10 AM CDT Office Visit Department of Oncology in [address] [address] Jie Shook P.A.-C. [address] [place] [address] 03/04/2025 9:30 AM CDT Infusion Department of Oncology in [address] [address] Skip Amaya M.D., Ph.D. [address] [place] [phone] 03/10/2025 2:15 PM CDT Clinical Communication Virtual Review in [place], [place] 200 [place] [address] 03/11/2025 6:00 AM CDT Lab Department of Laboratory Medicine and Pathology, [facility], in [place], [place] [address] [place] [address] Skip Amaya M.D., Ph.D. [address] [place] [phone] 03/11/2025 7:20 AM CDT Office Visit Department of Oncology in [address] [address] Bipin Leal P.A.-C., M.S. [address] [place] [phone] 03/11/2025 8:00 AM CDT Infusion Department of Oncology in [place], [place] [address] [place] [address] Skip Amaya M.D., Ph.D. [address] [place] [phone] 03/24/2025 11:20 AM CDT Lab Department of Infusion Therapy in [place], [place] [address] [place] [address] Skip Amaya M.D., Ph.D. [address] [place] [phone] 03/24/2025 1:30 PM CDT Office Visit Department of Oncology in [place], [place] [address] [place] [address] Skip Amaya M.D., Ph.D. [address] [place] [address] 03/25/2025 7:00 AM CDT Infusion Department of Oncology in [place], [place] [address] [place] [phone] Skip Amaya M.D., Ph.D. [address] [place] [phone] 03/29/2025 2:30 PM CDT Clinical Communication Virtual Review in [place], [place] 200 [place] [address] 04/01/2025 6:00 AM CDT Lab Department of Infusion Therapy in [place], [place] [address] [place] [address] Skip Amaya M.D., Ph.D. [address] [place] [phone] 04/01/2025 8:20 AM CDT Office Visit Department of Oncology in [address] [address] Precious Hill M.D., Ph.D. [address] [place] [phone] 04/01/2025 9:00 AM CDT Infusion Department of Oncology in [address] [address] Skip Amaya M.D., Ph.D. [address] [place] [phone] 04/07/2025 11:00 AM CDT Lab Department of Infusion Therapy in [address] [address] Skip Amaya M.D., Ph.D. [address] [place] [phone] 04/07/2025 1:20 PM CDT Office Visit Department of Oncology in [address] [address] Sandy Judge, KASH, C.N.P., M.S. [address] [place] [phone] 04/08/2025 7:00 AM CDT Infusion Department of Oncology in [address] [address] Skip Amaya M.D., Ph.D. [address] [place] [phone] 04/21/2025 7:15 AM CDT Clinical Communication Virtual Review in [place], [place] 200 [place] [address] 04/22/2025 7:20 AM CDT Lab Department of Infusion Therapy in [place], [place] [address] [place] [address] Skip Amaya M.D., Ph.D. [address] [place] [phone] 04/22/2025 9:20 AM CDT Office Visit Department of Oncology in [place], [place] [address] [place] [phone] Sandy Judge, KASH, C.N.P., M.S. [address] [place] [phone] 04/22/2025 10:30 AM CDT Infusion Department of Oncology in [place], [place] [address] [place] [phone] Skip Amaya M.D., Ph.D. [address] [place] [phone] Scheduled Referrals Name Type Priority Associated Diagnoses Order Schedule Cancer Center - Patient navigation consult (clinic) Outpatient Referral Routine Expected: 01/30/2025, Expires: 04/25/2026 Social Work - General consult (clinic) Outpatient Referral Routine Expected: 01/30/2025, Expires: 04/25/2026 documented as of this encounter Goals Goal [...] documented as of this encounter Care Teams Head Strength And Conditioning Coach Relationship Specialty Start Date End Date Elsewhere, Pcp PCP - General Internal Medicine 09/09/23 documented as of this encounter
--- OUTSIDE RECORDS SUMMARY | 2025-01-30 17:43 | XMS_ITS | Encounter Summary ---
Author Organization [facility] Address [address] [place] [address] Care Team Providers Care Supervisor Nurse Name Role Phone Elsewhere, Pcp Primary Care Provider Unavailabl e Encounter Details Date Type Department Care Team (Late st Contact Info) Description 01/21/2025 Orders Only Department of Oncology in [place], [place] [address] [place] [address] Lissett Gordillo [address] [place] [address] Social History Tobacco Use Types Packs/Day Years Used Date Smoking Tobacco: Never Passive Smoke Exposure: Past Smokeless Tobacco: Never Passive Exposure Comments:Ch ildhood exposure. Alcohol Use Standard Drinks/Week Comments Not Currently 1 (1 standard drink = 0.6 oz pur e alcohol) 0-1 drink per week [facility] Utilities Answer Date Recorded In the past 12 months has e [employer], gas, oil, or water [employer] threatened to shut off services in your [...] your living situation today? I have a [facility] place to live 12/23/2024 Education Answer Date Recorded What is the highest level of school you have completed or the highest degree you have received? Master's degree (e.g., MA, MS, Katelyn, MEd, HELMET HAT SWEATBAND PUNCHER, KELLEE) 01/05/2025 Sex and Gender Information Value Date Recorded Sex Assigned at Male 09/10/2023 7:48 AM SEISMIC SURVEY ASSISTANT Legal Sex Male 10:11 PM SEISMIC SURVEY ASSISTANT Gender Identity Male 09/10/2023 7:48 AM SEISMIC SURVEY ASSISTANT Sexual Orientation Straight 09/10/2023 7: 48 AM SEISMIC SURVEY ASSISTANT documented as of this encounter Plan of Treatment Upcoming Encounters Date Type Department Care Team (Latest Contact Info) Description 02/04/2025 7:00 AM CDT Lab Department of Infusion Therapy in [place], [place] [address] [place] [phone] Skip Amaya M.D., Ph.D. [address] [place] [phone] 02/04/2025 8:20 AM CDT Office Visit Department of Oncology in [place], [place] [address] [place] [phone] Jag Frye, KASH, C.N.P., D.N.P. [address] [place] [phone] 02/04/2025 2:00 PM CDT Infusion Department of Oncology in [place], [place] [address] [place] [phone] Skip Amaya M.D., Ph.D. [address] [place] [phone] 02/08/2025 2:15 PM CDT Clinical Communication Virtual Review in [place], [place] 200 [place] [phone] 02/09/2025 9:30 AM CDT Telemedicine Department of Oncology in [place] [address] [place] [address] Jesica Wasserman M.B., B.Ch. [address] [place] [phone] Cecily Nash L.I.C.S.W. [address] [place] [phone] 02/10/2025 12:00 PM CDT Lab Department of Infusion Therapy in [place], [place] [address] [place] [phone] Skip Amaya M.D., Ph.D. [address] [place] [phone] 02/10/2025 2:30 PM CDT Office Visit Department of Oncology in [place], [place] [address] [place] [phone] Rosenda Garza MPAS, P.A.-C. [address] [place] [phone] 02/11/2025 8:00 AM CDT Infusion Department of Oncology in [place], [place] [address] [place] [phone] Skip Amaya M.D., Ph.D. [address] [place] [phone] 02/23/2025 2:15 PM CDT Clinical Communication Virtual Review in [place], [place] [address] [place] [address] 02/25/2025 8:30 AM CDT Lab Department of Oncology in [place], [place] [address] [place] [phone] Skip Amaya M.D., Ph.D. [address] [place] [phone] 02/25/2025 10:40 AM CDT Office Visit Department of Oncology in [place], [place] [address] [place] [phone] Sandy Judge, KASH, C.N.P., M.S. [address] [place] [phone] 02/25/2025 11:30 AM CDT Infusion Department of Oncology in [place], [place] [address] [place] [phone] Skip Amaya M.D., Ph.D. [address] [place] [phone] 03/04/2025 6:00 AM CDT Lab Department of Infusion Therapy in [place], [place] [address] [place] [phone] Skip Amaya M.D., Ph.D. [address] [place] [phone] 03/04/2025 8:10 AM CDT Office Visit Department of Oncology in [address] [phone] Jie Shook P.A.-C. [address] [place] [phone] 03/04/2025 9:30 AM CDT Infusion Department of Oncology in [address] [address] Skip Amaya M.D., Ph.D. [address] [place] [phone] 03/10/2025 2:15 PM CDT Clinical Communication Virtual Review in [place], [place] 200 [place] [address] 03/11/2025 6:00 AM CDT Lab Department of Laboratory Medicine and Pathology, [facility], in [place], [place] [address] [place] [phone] Skip Amaya M.D., Ph.D. [address] [place] [phone] 03/11/2025 7:20 AM CDT Office Visit Department of Oncology in [address] [phone] Bipin Leal P.A.-C., M.S. [address] [place] [phone] 03/11/2025 8:00 AM CDT Infusion Department of Oncology in [address] [address] Skip Amaya M.D., Ph.D. [address] [place] [phone] 03/24/2025 11:20 AM CDT Lab Department of Infusion Therapy in [address] [phone] Skip Amaya M.D., Ph.D. [address] [place] [phone] 03/24/2025 1:30 PM CDT Office Visit Department of Oncology in [address] [phone] Skip Amaya M.D., Ph.D. [address] [place] [phone] 03/25/2025 7:00 AM CDT Infusion Department of Oncology in [place], [place] [address] [place] [phone] Skip Amaya M.D., Ph.D. [address] [place] [phone] 03/29/2025 2:30 PM CDT Clinical Communication Virtual Review in [place], [place] [address] [place] [address] 04/01/2025 6:00 AM CDT Lab Department of Infusion Therapy in [address] [phone] Skip Amaya M.D., Ph.D. [address] [place] [phone] 04/01/2025 8:20 AM CDT Office Visit Department of Oncology in [address] [phone] Precious Hill M.D., Ph.D. [address] [place] [phone] 04/01/2025 9:00 AM CDT Infusion Department of Oncology in [address] [phone] Skip Amaya M.D., Ph.D. [address] [place] [phone] 04/07/2025 11:00 AM CDT Lab Department of Infusion Therapy in [address] [address] Skip Amaya M.D., Ph.D. [address] [place] [phone] 04/07/2025 1:20 PM CDT Office Visit Department of Oncology in [place], [place] [address] [place] [phone] Sandy Judge APRN, C.N.P., M.S. [address] [place] [phone] 04/08/2025 7:00 AM CDT Infusion Department of Oncology in [place], [place] [address] [place] [phone] Skip Amaya M.D., Ph.D. [address] [place] [phone] 04/21/2025 7:15 AM CDT Clinical Communication Virtual Review in [place], [place] 200 [place] [address] 04/22/2025 7:20 AM CDT Lab Department of Infusion Therapy in [place], [place] [address] [place] [phone] Skip Amaya M.D., Ph.D. [address] [place] [phone] 04/22/2025 9:20 AM CDT Office Visit Department of Oncology in [address] [phone] Sandy Judge APRN, Jordy.N.P., M.S. [address] [place] [phone] 04/22/2025 10:30 AM CDT Infusion Department of Oncology in [address] [address] Skip Amaya M.D., Ph.D. [address] [place] [phone] documented as of this encounter Goals Goal [...] documented as of this encounter Care Teams Supervisor Nurse Relationship Specialty Start Date End Date Elsewhere, Pcp PCP - General Internal Medicine 09/09/23 documented as of this encounter
--- OUTSIDE RECORDS SUMMARY | 2025-01-30 17:43 | XMS_ITS | Encounter Summary ---
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 200 [place] [address] Phone: tel: fax: [facility] Referral ID Status Reason Start Date Expiration Date Visits Re quested Visits Authorized [id number] Closed 01/24/2025 04/26/2026 1 1 * Outpatient (Routine) - Closed Specialty Diagnoses / Procedures Referred By Contac t Referred To Contact Diagnoses Malignant Neoplasm Of Pancreas Tail (HCC) Procedures ECG 12 Lead NC EKG 12 LEAD W I&R Skip Amaya M.D., Ph.D. [address] [place] [phone] Phone: tel: fax: [facility] Referral ID Status Reason Start Date Expiration Date Visits Re quested Visits Authorized [id number] Closed 01/24/2025 04/26/2026 1 1 * Outpatient (Routine) - Closed Specialty Diagnoses / Procedures Referred By Contac t Referred To Contact Diagnoses Malignant Neoplasm Of Pancreas Tail (HCC) Procedures ECG 12 Lead NC EKG 12 LEAD W I&R Skip Amaya M.D., Ph.D. 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 Alcohol Use Standard Drinks/Week Comments Not Currently 1 (1 standard drink = 0.6 oz pur e alcohol) 0-1 drink per week [facility] Utilities Answer Date Recorded In the past 12 months has e [employer], gas, oil, or water [employer] threatened to shut off services in your [...] your living situation today? I have a [facility] place to live 12/23/2024 Education Answer Date Recorded What is the highest level of school you have completed or the highest degree you have received? Master's degree (e.g., MA, MS, Katelyn, MEd, CLOUD SOFTWARE ENGINEER, KELLEE) 01/05/2025 Sex and Gender Information Value Date Recorded Sex Assigned at Male 09/10/2023 7:48 AM GAS FLOW REGULATOR Legal Sex Male 10:11 PM GAS FLOW REGULATOR Gender Identity Male 09/10/2023 7:48 AM GAS FLOW REGULATOR Sexual Orientation Straight 09/10/2023 7: 48 AM GAS FLOW REGULATOR documented as of this encounter Plan of Treatment Upcoming Encounters Date Type Department Care Team (Latest Contact Info) Description 02/04/2025 7:00 AM CDT Lab Department of Infusion Therapy in [place], [place] [address] [place] [phone] Skip Amaya M.D., Ph.D. [address] [place] [phone] 02/04/2025 8:20 AM CDT Office Visit Department of Oncology in [place], [place] [address] [place] [phone] Jag Frye, KASH, C.N.P., D.N.P. [address] [place] [phone] 02/04/2025 2:00 PM CDT Infusion Department of Oncology in [place], [place] [address] [place] [phone] Skip Amaya M.D., Ph.D. [address] [place] [phone] 02/08/2025 2:15 PM CDT Clinical Communication Virtual Review in [place], [place] 200 [place] [address] 02/09/2025 9:30 AM CDT Telemedicine Department of Oncology in [place] [address] [place] [address] Jesica Wasserman M.B., B.Ch. [address] [place] [phone] Cecily Nash L.I.C.S.W. [address] [place] [phone] 02/10/2025 12:00 PM CDT Lab Department of Infusion Therapy in [place], [place] [address] [place] [phone] Skip Amaya M.D., Ph.D. [address] [place] [phone] 02/10/2025 2:30 PM CDT Office Visit Department of Oncology in [place], [place] [address] [place] [phone] Rosenda Garza, KRISHNAS, P.A.-C. [address] [place] [phone] 02/11/2025 8:00 AM CDT Infusion Department of Oncology in [place], [place] [address] [place] [phone] Skip Amaya M.D., Ph.D. [address] [place] [phone] 02/23/2025 2:15 PM CDT Clinical Communication Virtual Review in [place], [place] 200 [place] [address] 02/25/2025 8:30 AM CDT Lab Department of Oncology in [place], [place] [address] [place] [phone] Skip Amaya M.D., Ph.D. [address] [place] [phone] 02/25/2025 10:40 AM CDT Office Visit Department of Oncology in [place], [place] [address] [place] [phone] Sandy Judge, KASH, C.N.P., M.S. [address] [place] [phone] 02/25/2025 11:30 AM CDT Infusion Department of Oncology in [place], [place] [address] [place] [phone] Skip Amaya M.D., Ph.D. [address] [place] [phone] 03/04/2025 6:00 AM CDT Lab Department of Infusion Therapy in [place], [place] [address] [place] [phone] Skip Amaya M.D., Ph.D. [address] [place] [phone] 03/04/2025 8:10 AM CDT Office Visit Department of Oncology in [place], [place] [address] [place] [phone] Jie Shook P.A.-C. [address] [place] [phone] 03/04/2025 9:30 AM CDT Infusion Department of Oncology in [address] [phone] Skip Amaya M.D., Ph.D. [address] [place] [phone] 03/10/2025 2:15 PM CDT Clinical Communication Virtual Review in [place], [place] 200 [place] [address] 03/11/2025 6:00 AM CDT Lab Department of Laboratory Medicine and Pathology, [facility], in [place], [place] [address] [place] [phone] Skip Amaya M.D., Ph.D. [address] [place] [phone] 03/11/2025 7:20 AM CDT Office Visit Department of Oncology in [address] [phone] Bipin Leal P.A.-C., M.S. [address] [place] [phone] 03/11/2025 8:00 AM CDT Infusion Department of Oncology in [place], [place] [address] [place] [phone] Skip Amaya M.D., Ph.D. [address] [place] [phone] 03/24/2025 11:20 AM CDT Lab Department of Infusion Therapy in [address] [phone] Skip Amaya M.D., Ph.D. [address] [place] [phone] 03/24/2025 1:30 PM CDT Office Visit Department of Oncology in [address] [phone] Skip Amaya M.D., Ph.D. [address] [place] [phone] 03/25/2025 7:00 AM CDT Infusion Department of Oncology in [place], [place] [address] [place] [phone] Skip Amaya M.D., Ph.D. [address] [place] [phone] 03/29/2025 2:30 PM CDT Clinical Communication Virtual Review in [place], [place] 200 [place] [address] 04/01/2025 6:00 AM CDT Lab Department of Infusion Therapy in [place], [place] [address] [place] [phone] Skip Amaya M.D., Ph.D. [address] [place] [phone] 04/01/2025 8:20 AM CDT Office Visit Department of Oncology in [place], [place] [address] [place] [phone] Precious Hill M.D., Ph.D. [address] [place] [phone] 04/01/2025 9:00 AM CDT Infusion Department of Oncology in [address] [phone] Skip Amaya M.D., Ph.D. [address] [place] [phone] 04/07/2025 11:00 AM CDT Lab Department of Infusion Therapy in [address] [phone] Skip Amaya M.D., Ph.D. [address] [place] [phone] 04/07/2025 1:20 PM CDT Office Visit Department of Oncology in [place], [place] [address] [place] [phone] Sandy Judge APRN, C.N.P., M.S. [address] [place] [phone] 04/08/2025 7:00 AM CDT Infusion Department of Oncology in [place], [place] [address] [place] [phone] Skip Amaya M.D., Ph.D. [address] [place] [phone] 04/21/2025 7:15 AM CDT Clinical Communication Virtual Review in [place], [place] 200 [place] [address] 04/22/2025 7:20 AM CDT Lab Department of Infusion Therapy in [place], [place] [address] [place] [phone] Skip Amaya M.D., Ph.D. [address] [place] [phone] 04/22/2025 9:20 AM CDT Office Visit Department of Oncology in [address] [phone] Sandy Judge APRN, Jordy.N.P., M.S. [address] [place] [phone] 04/22/2025 10:30 AM CDT Infusion Department of Oncology in [address] [address] Skip Amaya M.D., Ph.D. [address] [place] [phone] documented as of this encounter Goals Goal Patient Goal Type Associated Problems Recent Progress Patient-Stated? Author Autogenerat ed Goal Care Plan Autogenerated Problem No Sterling Leesgladys Bhakta, R.N. documented as of this encounter Results * ECG 12 Lead (01/27/2025 12:49 PM CDT) Ventricular Rate ECG/Min 85 BPM MUSE NC Interval 132 ms MUSE QRSD Interval 88 ms MUSE QT Interval 392 ms MUSE QTC Interval 466 ms MUSE P [place] 59 degrees MUSE R [place] 41 degrees MUSE T Wave [place] 72 degrees MUSE 01/27/2025 12:4 9 PM CDT 01/27/2025 1:27 PM CDT Impressions MUSE - 01/27/2025 1:27 PM CDT Sinus rhythm Premature ventricular complexes Otherwise normal ECG When compared with ECG of 21-Jan-2025 10:41, No significant change was found Reviewed by KITA Coker Narrative Procedure Note Rodrigue Obrien Jr., M.D. - 01/27/2025 IMPRESSION: Sinus rhythm Premature ventricular complexes Otherwise normal ECG When compared with ECG of 21-Jan-2025 10:41, No significant change was found Reviewed by KITA Coker Skip Amaya M.D., Ph.D. ECG ORDERABLES Final Re sult MUSE NA * ECG 12 Lead (01/27/2025 12:48 PM CDT) Ventricular Rate ECG/Min 87 BPM MUSE NC Interval 132 ms MUSE QRSD Interval 84 ms MUSE QT Interval 388 ms MUSE QTC Interval 466 ms MUSE P [place] 47 degrees MUSE R [place] 32 degrees MUSE T Wave [place] 71 degrees MUSE 01/27/2025 12:4 8 PM CDT 01/27/2025 1:26 PM CDT Impressions MUSE - 01/27/2025 1:26 PM CDT Sinus rhythm Premature ventricular complexes Otherwise normal ECG When compared with ECG of 21-Jan-2025 10:41, No significant change was found Reviewed by KITA Bull Narrative Procedure Note Rodrigue Obrien Jr., M.D. - 01/27/2025 IMPRESSION: Sinus rhythm Premature ventricular complexes Otherwise normal ECG When compared with ECG of 21-Jan-2025 10:41, No significant change was found Reviewed by KITA Bull Skip Amaya M.D., Ph.D. ECG ORDERABLES Final Re sult Performing Organization Address [facility] Co de Phone Number MUSE NA * ECG 12 Lead (01/27/2025 12:47 PM CDT) Ventricular Rate ECG/Min 85 BPM MUSE NC Interval 138 ms MUSE QRSD Interval 84 ms MUSE QT Interval 382 ms MUSE QTC Interval 454 ms MUSE P [place] 49 degrees MUSE R [place] 35 degrees MUSE T Wave [place] 77 degrees MUSE 01/27/2025 12:4 7 PM CDT 01/27/2025 3:06 PM CDT Impressions MUSE - 01/27/2025 3:06 PM CDT Sinus rhythm Premature ventricular complexes Nonspecific ST abnormality When compared with ECG of 21-Jan-2025 10:41, QT has shortened Nonspecific T wave abnormality is no longer present Reviewed by KITA Garcia Narrative Procedure Note Rodrigue Obrien Jr., M.D. - 01/27/2025 IMPRESSION: Sinus rhythm Premature ventricular complexes Nonspecific ST abnormality When compared with ECG of 21-Jan-2025 10:41, QT has shortened Nonspecific T wave abnormality is no longer present Reviewed by KITA Garcia us Skip Amaya M.D., Ph.D. ECG ORDERABLES Final Re sult Performing Organization Address [facility] Co de Phone Number MUSE NA documented in this encounter Visit Diagnoses Diagnosis Malignant Neoplasm Of Pancreas Tail (HCC)- Primary documented in this encounter Additional Health Concerns Active Problems Noted Date Diagnosed Date Autogenerated Problem 11/16/2024 Infection Onset Date Last Indicated Resolved Time Protective Environment 01/28/2025 01/28/2025 Assessment Noted Time PHQ-9 Depression Total Score: 7 01/12/20 25 9:53 AM CDT documented as of this encounter Care Teams Certified Prosthetist/Orthotist Relationship Specialty Start Date End Date Elsewhere, Pcp PCP - General Internal Medicine 09/09/23 documented as of this encounter
--- OUTSIDE RECORDS SUMMARY | 2025-01-30 17:43 | XMS_ITS | Encounter Summary ---
Author Organization [facility] Address [address] [place] [id number] Care Team Providers Care Brand Development Manager Name Role Phone Elsewhere, Pcp Primary Care Provider Unavailabl e Reason for Referral * Outpatient (Routine) Specialty Diagnoses / Procedures Referred By Meeta carlisle Referred To Contact Oncology Diagnoses Malignant Neoplasm Of Pancreas Tail (HCC) Skip Amaya M.D., Ph.D. [address] [place] [address] Phone: tel: fax: [facility] Referral ID Status Reason Start Date Expiration Date Visits Re quested Visits Authorized * Outpatient (Routine) Specialty Diagnoses / Procedures Referred By Meeta carlisle Referred To Contact Oncology Diagnoses Malignant Neoplasm Of Pancreas Tail (HCC) Skip Amaya M.D., Ph.D. [address] [place] [phone] Phone: tel: fax: [facility] Referral ID Status Reason Start Date Expiration Date Visits Re quested Visits Authorized * Outpatient (Routine) Specialty Diagnoses / Procedures Referred By Meeta carlisle Referred To Contact Oncology Diagnoses Malignant Neoplasm Of Pancreas Tail (HCC) Skip Amaya M.D., Ph.D. [address] [place] [phone] Phone: tel: fax: [facility] Referral ID Status Reason Start Date Expiration Date Visits Re quested Visits Authorized * Outpatient (Routine) Specialty Diagnoses / Procedures Referred By Contac t Referred To Contact Oncology Diagnoses Malignant Neoplasm Of Pancreas Tail (HCC) Skip Amaya M.D., Ph.D. [address] [place] [phone] Phone: tel: fax: [facility] Referral ID Status Reason Start Date Expiration Date Visits Re quested Visits Authorized * Outpatient (Routine) Specialty Diagnoses / Procedures Referred By Contac t Referred To Contact Oncology Diagnoses Malignant Neoplasm Of Pancreas Tail (HCC) Skip Amaya M.D., Ph.D. [address] [place] [phone] Phone: tel: fax: [facility] Referral ID Status Reason Start Date Expiration Date Visits Re quested Visits Authorized * Outpatient (Routine) Specialty Diagnoses / [facility] To Contact Oncology Diagnoses Malignant Neoplasm Of Pancreas Tail (HCC) Skip Amaya M.D., Ph.D. [address] [place] [phone] Phone: tel: fax: [facility] Referral ID Status Reason Start Date Expiration Date Visits Re quested Visits Authorized * Outpatient (Routine) Specialty Diagnoses / Procedures Referred By Contac t Referred To Contact Oncology Diagnoses Malignant Neoplasm Of Pancreas Tail (HCC) Skip Amaya M.D., Ph.D. [address] [place] [phone] Phone: tel: fax: [facility] Referral ID Status Reason Start Date Expiration Date Visits Re quested Visits Authorized * Outpatient (Routine) Specialty Diagnoses / Procedures Referred By Contac t Referred To Contact Oncology Diagnoses Malignant Neoplasm Of Pancreas Tail (HCC) Skip Amaya M.D., Ph.D. [address] [place] [phone] Phone: tel: fax: [facility] Referral ID Status Reason Start Date Expiration Date Visits Re quested Visits Authorized * Outpatient (Routine) Specialty Diagnoses / Procedures Referred By Contac t Referred To Contact Oncology Diagnoses Malignant Neoplasm Of Pancreas Tail (HCC) Skip Amaya M.D., Ph.D. [address] [place] [phone] Phone: tel: fax: [facility] Referral ID Status Reason Start Date Expiration Date Visits Re quested Visits Authorized * Outpatient (Routine) Specialty Diagnoses / Procedures Referred By Contac t Referred To Contact Oncology Diagnoses Malignant Neoplasm Of Pancreas Tail (HCC) Skip Amaya M.D., Ph.D. [address] [place] [phone] Phone: tel: fax: [facility] Referral ID Status Reason Start Date Expiration Date Visits Re quested Visits Authorized * Outpatient (Routine) Specialty Diagnoses / Procedures Referred By Contac t Referred To Contact Oncology Diagnoses Malignant Neoplasm Of Pancreas Tail (HCC) Skip Amaya M.D., Ph.D. [address] [place] [phone] Phone: tel: fax: [facility] Referral ID Status Reason Start Date Expiration Date Visits Re quested Visits Authorized * Outpatient (Routine) Specialty Diagnoses / Procedures Referred By Contac t Referred To Contact Oncology Diagnoses Malignant Neoplasm Of Pancreas Tail (HCC) Skip Amaya M.D., Ph.D. [address] [place] [phone] Phone: tel: fax: [facility] Referral ID Status Reason Start Date Expiration Date Visits Re quested Visits Authorized * Specialty Diagnoses / Procedures Referred By Contac t Referred To Contact Diagnoses Malignant Neoplasm Of Pancreas Tail (HCC) Skip Amaya M.D., Ph.D. [address] [place] [phone] Phone: tel: fax: [facility] Referral ID Status Reason Start Date Expiration Date Visits Re quested Visits Authorized Encounter Details Date Type Department Care Team (Late st Contact Info) Description 01/21/2025 Orders Only Department of Oncology in [place], [place] [address] [place] [phone] Skip Amaya M.D., Ph.D. 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 Alcohol Use Standard Drinks/Week Comments Not Currently 1 (1 standard drink = 0.6 oz pur e alcohol) 0-1 drink per week [facility] Utilities Answer Date Recorded In the [...] your living situation today? I have a [facility] place to live 12/23/2024 Education Answer Date Recorded What is the highest level of school you have completed or the highest degree you have received? 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 200 [place] [phone] 02/04/2025 8:20 AM CDT Office Visit Department of Oncology in [place], [place] [address] [place] [phone] Jag Frye, KASH, C.N.P., D.N.P. [address] [place] [phone] 02/04/2025 2:00 PM CDT Infusion Department of Oncology in [place], [place] [address] [place] [phone] Skip Amaya M.D., Ph.D. [address] [place] [phone] 02/08/2025 2:15 PM CDT Clinical Communication Virtual Review in [address] [phone] 02/09/2025 9:30 AM CDT Telemedicine Department of Oncology in [address] [phone] Jesica Wasserman M.B., B.Ch. [address] [place] [phone] Cecily Nash, WeroI.C.S.W. [address] [place] [phone] 02/10/2025 12:00 PM CDT Lab Department of Infusion Therapy in [address] [phone] Skip Amaya M.D., Ph.D. [address] [place] [phone] 02/10/2025 2:30 PM CDT Office Visit Department of Oncology in [place], [place] [address] [place] [phone] Rosenda Garza MPAS, P.A.-C. [address] [place] [phone] 02/11/2025 8:00 AM CDT Infusion Department of Oncology in [place], [place] [address] [place] [phone] Skip Amaya M.D., Ph.D. [address] [place] [phone] 02/23/2025 2:15 PM CDT Clinical Communication Virtual Review in [place], [place] 200 [place] [phone] 02/25/2025 8:30 AM CDT Lab Department of Oncology in [address] [phone] Skip Amaya M.D., Ph.D. [address] [place] [phone] 02/25/2025 10:40 AM CDT Office Visit Department of Oncology in [address] [phone] Sandy Judge, KASH, C.N.P., M.S. [address] [place] [phone] 02/25/2025 11:30 AM CDT Infusion Department of Oncology in [address] [phone] Skip Amaya M.D., Ph.D. [address] [place] [phone] 03/04/2025 6:00 AM CDT Lab Department of Infusion Therapy in [address] [phone] Skip Amaya M.D., Ph.D. [address] [place] [phone] 03/04/2025 8:10 AM CDT Office Visit Department of Oncology in [place], [place] [address] [place] [phone] Jie Shook P.A.-C. [address] [place] [phone] 03/04/2025 9:30 AM CDT Infusion Department of Oncology in [address] [phone] Skip Amaya M.D., Ph.D. [address] [place] [phone] 03/10/2025 2:15 PM CDT Clinical Communication Virtual Review in [place], [place] 200 [place] [phone] 03/11/2025 6:00 AM CDT Lab Department of Laboratory Medicine and Pathology, [facility] in [address] [phone] Skip Amaya M.D., Ph.D. [address] [place] [phone] 03/11/2025 7:20 AM CDT Office Visit Department of Oncology in [place], [place] [address] [place] [phone] Bipin Leal P.A.-C., M.S. [address] [place] [phone] 03/11/2025 8:00 AM CDT Infusion Department of Oncology in [address] [phone] Skip Amaya M.D., Ph.D. [address] [place] [phone] 03/24/2025 11:20 AM CDT Lab Department of Infusion Therapy in [place], [place] [address] [place] [phone] Skip Amaya M.D., Ph.D. [address] [place] [phone] 03/24/2025 1:30 PM CDT Office Visit Department of Oncology in [place], [place] [address] [place] [phone] Skip Amaya M.D., Ph.D. [address] [place] [phone] 03/25/2025 7:00 AM CDT Infusion Department of Oncology in [place], [place] [address] [place] [phone] Skip Amaya M.D., Ph.D. [address] [place] [phone] 03/29/2025 2:30 PM CDT Clinical Communication Virtual Review in [place], [place] 200 [place] [address] 04/01/2025 6:00 AM CDT Lab Department of Infusion Therapy in [place], [place] [address] [place] [phone] Skip Amaya M.D., Ph.D. [address] [place] [phone] 04/01/2025 8:20 AM CDT Office Visit Department of Oncology in [place], [place] [address] [place] [phone] Precious Hill M.D., Ph.D. [address] [place] [phone] 04/01/2025 9:00 AM CDT Infusion Department of Oncology in [place], [place] [address] [place] [phone] Skip Amaya M.D., Ph.D. [address] [place] [phone] 04/07/2025 11:00 AM CDT Lab Department of Infusion Therapy in [address] [phone] Skip Amaya M.D., Ph.D. [address] [place] [phone] 04/07/2025 1:20 PM CDT Office Visit Department of Oncology in [address] [phone] Sandy Judge, KASH, C.N.P., M.S. [address] [place] [phone] 04/08/2025 7:00 AM CDT Infusion Department of Oncology in [address] [phone] Skip Amaya M.D., Ph.D. [address] [place] [phone] 04/21/2025 7:15 AM CDT Clinical Communication Virtual Review in [place], [place] 200 [place] [phone] 04/22/2025 7:20 AM CDT Lab Department of Infusion Therapy in [address] [phone] Skip Amaya M.D., Ph.D. [address] [place] [phone] 04/22/2025 9:20 AM CDT Office Visit Department of Oncology in [place], [place] [address] [place] [phone] Sandy Judge APRN, C.N.P., M.S. [address] [place] [phone] 04/22/2025 10:30 AM CDT Infusion Department of Oncology in [place], [place] [address] [place] [phone] Skip Amaya M.D., Ph.D. [address] [place] [phone] Scheduled Orders Name Type Priority Associated Diagnoses Orde r Schedule CBC with Differential, Blood Lab Routine Malignant Neoplasm Of Pancreas Tail (HCC) Expected: 02/04/2025, Expires: 02/04/2026 Comprehensive Metabolic Panel Lab Routine Malignant Neoplasm Of Pancreas Tail (HCC) Expected: 02/04/2025, Expires: 02/04/2026 Magnesium Lab Routine Malignant Neoplasm Of Pancreas Tail (HCC) Expected: 02/04/2025, Expires: 02/04/2026 Phosphorus Inorganic Lab Routine Malignant Neoplasm Of Pancreas Tail (HCC) Expected: 02/04/2025, Expires: 02/04/2026 LD (Lactate Dehydrogenase) Lab Routine Malignant Neoplasm Of Pancreas Tail (HCC) Expected: 02/04/2025, Expires: 02/04/2026 CBC with Differential, Blood Lab Routine Malignant Neoplasm Of Pancreas Tail (HCC) Expected: 02/11/2025, Expires: 02/11/2026 Comprehensive Metabolic Panel Lab Routine Malignant Neoplasm Of Pancreas Tail (HCC) Expected: 02/11/2025, Expires: 02/11/2026 Magnesium Lab Routine Malignant Neoplasm Of Pancreas Tail (HCC) Expected: 02/11/2025, Expires: 02/11/2026 Phosphorus Inorganic Lab Routine Malignant Neoplasm Of Pancreas Tail (HCC) Expected: 02/11/2025, Expires: 02/11/2026 LD (Lactate Dehydrogenase) Lab Routine Malignant Neoplasm Of Pancreas Tail (HCC) Expected: 02/11/2025, Expires: 02/11/2026 CBC with Differential, Blood Lab Routine Malignant Neoplasm Of Pancreas Tail (HCC) Expected: 02/25/2025, Expires: 02/25/2026 Comprehensive Metabolic Panel Lab Routine Malignant Neoplasm Of Pancreas Tail (HCC) Expected: 02/25/2025, Expires: 02/25/2026 Magnesium Lab Routine Malignant Neoplasm Of Pancreas Tail (HCC) Expected: 02/25/2025, Expires: 02/25/2026 Phosphorus Inorganic Lab Routine Malignant Neoplasm Of Pancreas Tail (HCC) Expected: 02/25/2025, Expires: 02/25/2026 LD (Lactate Dehydrogenase) Lab Routine Malignant Neoplasm Of Pancreas Tail (HCC) Expected: 02/25/2025, Expires: 02/25/2026 Prothrombin Time (PT) Lab Routine Malignant Neoplasm Of Pancreas Tail (HCC) Expected: 02/25/2025, Expires: 02/25/2026 APTT (Activated Partial Thromboplastin Time) Lab Routine Malignant Neoplasm Of Pancreas Tail (HCC) Expected: 02/25/2025, Expires: 02/25/2026 CBC with Differential, Blood Lab Routine Malignant Neoplasm Of Pancreas Tail (HCC) Expected: 03/04/2025, Expires: 03/04/2026 Comprehensive Metabolic Panel Lab Routine Malignant Neoplasm Of Pancreas Tail (HCC) Expected: 03/04/2025, Expires: 03/04/2026 Magnesium Lab Routine Malignant Neoplasm Of Pancreas Tail (HCC) Expected: 03/04/2025, Expires: 03/04/2026 Phosphorus Inorganic Lab Routine Malignant Neoplasm Of Pancreas Tail (HCC) Expected: 03/04/2025, Expires: 03/04/2026 LD (Lactate Dehydrogenase) Lab Routine Malignant Neoplasm Of Pancreas Tail (HCC) Expected: 03/04/2025, Expires: 03/04/2026 CBC with Differential, Blood Lab Routine Malignant Neoplasm Of Pancreas Tail (HCC) Expected: 03/11/2025, Expires: 03/11/2026 Comprehensive Metabolic Panel Lab Routine Malignant Neoplasm Of Pancreas Tail (HCC) Expected: 03/11/2025, Expires: 03/11/2026 Magnesium Lab Routine Malignant Neoplasm Of Pancreas Tail (HCC) Expected: 03/11/2025, Expires: 03/11/2026 Phosphorus Inorganic Lab Routine Malignant Neoplasm Of Pancreas Tail (HCC) Expected: 03/11/2025, Expires: 03/11/2026 LD (Lactate Dehydrogenase) Lab Routine Malignant Neoplasm Of Pancreas Tail (HCC) Expected: 03/11/2025, Expires: 03/11/2026 CBC with Differential, Blood Lab Routine Malignant Neoplasm Of Pancreas Tail (HCC) Expected: 04/08/2025, Expires: 04/08/2026 Comprehensive Metabolic Panel Lab Routine Malignant Neoplasm Of Pancreas Tail (HCC) Expected: 04/08/2025, Expires: 04/08/2026 Magnesium Lab Routine Malignant Neoplasm Of Pancreas Tail (HCC) Expected: 04/08/2025, Expires: 04/08/2026 Phosphorus Inorganic Lab Routine Malignant Neoplasm Of Pancreas Tail (HCC) Expected: 04/08/2025, Expires: 04/08/2026 LD (Lactate Dehydrogenase) Lab Routine Malignant Neoplasm Of Pancreas Tail (HCC) Expected: 04/08/2025, Expires: 04/08/2026 CBC with Differential, Blood Lab Routine Malignant Neoplasm Of Pancreas Tail (HCC) Expected: 03/25/2025, Expires: 03/25/2026 Comprehensive Metabolic Panel Lab Routine Malignant Neoplasm Of Pancreas Tail (HCC) Expected: 03/25/2025, Expires: 03/25/2026 Magnesium Lab Routine Malignant Neoplasm Of Pancreas Tail (HCC) Expected: 03/25/2025, Expires: 03/25/2026 Phosphorus Inorganic Lab Routine Malignant Neoplasm Of Pancreas Tail (HCC) Expected: 03/25/2025, Expires: 03/25/2026 LD (Lactate Dehydrogenase) Lab Routine Malignant Neoplasm Of Pancreas Tail (HCC) Expected: 03/25/2025, Expires: 03/25/2026 Prothrombin Time (PT) Lab Routine Malignant Neoplasm Of Pancreas Tail (HCC) Expected: 03/25/2025, Expires: 03/25/2026 APTT (Activated Partial Thromboplastin Time) Lab Routine Malignant Neoplasm Of Pancreas Tail (HCC) Expected: 03/25/2025, Expires: 03/25/2026 Carbohydrate Antigen 19-9 (CA 19-9) Lab Routine Malignant Neoplasm Of Pancreas Tail (HCC) Expected: 03/25/2025, Expires: 03/25/2026 CBC with Differential, Blood Lab Routine Malignant Neoplasm Of Pancreas Tail (HCC) Expected: 04/01/2025, Expires: 04/01/2026 Comprehensive Metabolic Panel Lab Routine Malignant Neoplasm Of Pancreas Tail (HCC) Expected: 04/01/2025, Expires: 04/01/2026 Magnesium Lab Routine Malignant Neoplasm Of Pancreas Tail (HCC) Expected: 04/01/2025, Expires: 04/01/2026 Phosphorus Inorganic Lab Routine Malignant Neoplasm Of Pancreas Tail (HCC) Expected: 04/01/2025, Expires: 04/01/2026 LD (Lactate Dehydrogenase) Lab Routine Malignant Neoplasm Of Pancreas Tail (HCC) Expected: 04/01/2025, Expires: 04/01/2026 CBC with Differential, Blood Lab Routine Malignant Neoplasm Of Pancreas Tail (HCC) Expected: 04/22/2025, Expires: 04/22/2026 Comprehensive Metabolic Panel Lab Routine Malignant Neoplasm Of Pancreas Tail (HCC) Expected: 04/22/2025, Expires: 04/22/2026 Magnesium Lab Routine Malignant Neoplasm Of Pancreas Tail (HCC) Expected: 04/22/2025, Expires: 04/22/2026 Phosphorus Inorganic Lab Routine Malignant Neoplasm Of Pancreas Tail (HCC) Expected: 04/22/2025, Expires: 04/22/2026 LD (Lactate Dehydrogenase) Lab Routine Malignant Neoplasm Of Pancreas Tail (HCC) Expected: 04/22/2025, Expires: 04/22/2026 Prothrombin Time (PT) Lab Routine Malignant Neoplasm Of Pancreas Tail (HCC) Expected: 04/22/2025, Expires: 04/22/2026 APTT (Activated Partial Thromboplastin Time) Lab Routine Malignant Neoplasm Of Pancreas Tail (HCC) Expected: 04/22/2025, Expires: 04/22/2026 CBC with Differential, Blood Lab Routine Malignant Neoplasm Of Pancreas Tail (HCC) Expected: 04/29/2025, Expires: 04/29/2026 Comprehensive Metabolic Panel Lab Routine Malignant Neoplasm Of Pancreas Tail (HCC) Expected: 04/29/2025, Expires: 04/29/2026 Magnesium Lab Routine Malignant Neoplasm Of Pancreas Tail (HCC) Expected: 04/29/2025, Expires: 04/29/2026 Phosphorus Inorganic Lab Routine Malignant Neoplasm Of Pancreas Tail (HCC) Expected: 04/29/2025, Expires: 04/29/2026 LD (Lactate Dehydrogenase) Lab Routine Malignant Neoplasm Of Pancreas Tail (HCC) Expected: 04/29/2025, Expires: 04/29/2026 CBC with Differential, Blood Lab Routine Malignant Neoplasm Of Pancreas Tail (HCC) Expected: 05/06/2025, Expires: 05/06/2026 Comprehensive Metabolic Panel Lab Routine Malignant Neoplasm Of Pancreas Tail (HCC) Expected: 05/06/2025, Expires: 05/06/2026 Magnesium Lab Routine Malignant Neoplasm Of Pancreas Tail (HCC) Expected: 05/06/2025, Expires: 05/06/2026 Phosphorus Inorganic Lab Routine Malignant Neoplasm Of Pancreas Tail (HCC) Expected: 05/06/2025, Expires: 05/06/2026 LD (Lactate Dehydrogenase) Lab Routine Malignant Neoplasm Of Pancreas Tail (HCC) Expected: 05/06/2025, Expires: 05/06/2026 Scheduled Referrals Name Type Priority Associated Diagnoses Orde r Schedule Oncology - Chemo education visit (clinic) Outpatient Referral Routine Malignant Neoplasm Of Pancreas Tail (HCC) Expected: 01/20/2025, Expires: 04/22/2026 Oncology office visit (clinic) Outpatient Referral Routine Malignant Neoplasm Of Pancreas Tail (HCC) Expected: 01/28/2025, Expires: 04/30/2026 Oncology office visit (clinic) Outpatient Referral Routine Malignant Neoplasm Of Pancreas Tail (HCC) Expected: 02/04/2025, Expires: 05/07/2026 Oncology office visit (clinic) Outpatient Referral Routine Malignant Neoplasm Of Pancreas Tail (HCC) Expected: 02/11/2025, Expires: 05/14/2026 Oncology office visit (clinic) Outpatient Referral Routine Malignant Neoplasm Of Pancreas Tail (HCC) Expected: 02/25/2025, Expires: 05/28/2026 Oncology office visit (clinic) Outpatient Referral Routine Malignant Neoplasm Of Pancreas Tail (HCC) Expected: 03/04/2025, Expires: 06/04/2026 Oncology office visit (clinic) Outpatient Referral Routine Malignant Neoplasm Of Pancreas Tail (HCC) Expected: 03/11/2025, Expires: 06/11/2026 Oncology office visit (clinic) Outpatient Referral Routine Malignant Neoplasm Of Pancreas Tail (HCC) Expected: 04/08/2025, Expires: 07/09/2026 Oncology office visit (clinic) Outpatient Referral Routine Malignant Neoplasm Of Pancreas Tail (HCC) Expected: 03/25/2025, Expires: 06/25/2026 Oncology office visit (clinic) Outpatient Referral Routine Malignant Neoplasm Of Pancreas Tail (HCC) Expected: 04/01/2025, Expires: 07/02/2026 Oncology office visit (clinic) Outpatient Referral Routine Malignant Neoplasm Of Pancreas Tail (HCC) Expected: 04/22/2025, Expires: 07/23/2026 Oncology office visit (clinic) Outpatient Referral Routine Malignant Neoplasm Of Pancreas Tail (HCC) Expected: 04/29/2025, Expires: 07/30/2026 Oncology office visit (clinic) Outpatient Referral Routine Malignant Neoplasm Of Pancreas Tail (HCC) Expected: 05/06/2025, Expires: 08/06/2026 documented as of this encounter Goals Goal Patient Goal Type Associated Problems Recent Progress Patient-Stated? Author Autogenerat ed Goal Care Plan Autogenerated Problem No Hedy Lees RDean documented as of this encounter Results * (ABNORMAL) Carbohydrate Antigen 19-9 (CA 19-9) (01/27/2025 10:55 AM CDT) Pathologist [facility] Carbohydrate Ag 19-9, S 82595(H) <35 U/mL 01/28/2025 12:50 PM CDT [facility] Comment: ----ADDITIONAL INFORMATION---- The testing method is an immunoenzymatic assay manufactured by [employer] and performed on the [employer] 800. Values obtained with different assay methods or kits may be different and cannot be used interchangeably. Test results cannot be interpreted as absolute evidence for the presence or absence of malignant disease. Blood (Blood, Venous) 01/27/2025 10:55 AM CDT 01/28/2025 11:37 AM CDT us Skip Amaya M.D., Ph.D. LAB BLOOD ADD-ON Final R esult [facility] [address] [place] [address] [facility] [address] [place] [address] * APTT (Activated Partial Thromboplastin Time) (01/27/2025 10:55 AM CDT) Pathologist [facility] Activated Partial Thrombopl Time, P 26 25 - 37 sec 01/27/2025 11:27 AM CDT DTL Blood (Blood, Venous) 01/27/2025 10:55 AM CDT 01/27/2025 11:07 AM CDT Skip Amaya M.D., Ph.D. LAB BLOOD ADD-ON Final R esult Performing Organization Address [facility] de Phone Number [facility] [address] [facility] [address] [place] [address] * Prothrombin Time (PT) (01/27/2025 10:55 AM CDT) [facility] Prothrombin Time, P 11.4 9.4 - 12.5 sec 01/27/2025 11:27 AM CDT DTL INR 1.0 0.9 - 1.1 01/27/2025 11:27 AM CDT DTL Comment: ----ADDITIONAL INFORMATION---- Standard intensity warfarin therapeutic range: 2.0 to 3.0 High intensity warfarin therapeutic range: 2.5 to 3.5 Blood (Blood, Venous) 01/27/2025 10:55 AM CDT 01/27/2025 11:07 AM CDT Skip Amaya M.D., Ph.D. LAB BLOOD ADD-ON Final R [facility] Performing Organization Address City/[facility] de Phone Number [facility] [address] [place] [address], [facility] DTL [facility] 200 [place] [address] * LD (Lactate Dehydrogenase) (01/27/2025 10:55 AM CDT) [facility] LD 146 122 - 222 U/L 01/27/2025 12:06 PM CDT DTL Blood (Blood, Venous) 01/27/2025 10:55 AM CDT 01/27/2025 11:40 AM CDT Skip Amaya M.D., Ph.D. LAB BLOOD NON ADD-ON Fin al Result Performing Organization Address City/[facility] Co de Phone Number [facility] [address] [place] [address] * Phosphorus Inorganic (01/27/2025 10:55 AM CDT) Pathologist [facility] Phosphorus (Inorganic), S 3.0 2.5 - 4.5 mg/dL 01/27/2025 11:50 AM CDT DTL Blood (Blood, Venous) 01/27/2025 10:55 AM CDT 01/27/2025 11:23 AM CDT Skip Amaya M.D., Ph.D. LAB BLOOD ADD-ON Final R esult Performing Organization Address City/[facility] Co de Phone Number [facility] [address] 200 [place] [address] * Magnesium (01/27/2025 10:55 AM CDT) Pathologist [facility] Magnesium, S 2.2 1.7 - 2.3 mg/dL 01/27/2025 11:50 AM CDT DTL Blood (Blood, Venous) 01/27/2025 10:55 AM CDT 01/27/2025 11:23 AM CDT Skip Amaya M.D., Ph.D. LAB BLOOD ADD-ON Final R esult Performing Organization Address City/[facility] Co de Phone Number [facility] ([facility] [address] [place] [address] * (ABNORMAL) Comprehensive Metabolic Panel (01/27/2025 10:55 [...] LAB BLOOD ADD-ON Final R esult [facility] [address] [place] [address], [facility] DTL [facility] [address] [place] [address] * (ABNORMAL) CBC with Differential, Blood (01/27/2025 [...] Ph.D. 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
--- OUTSIDE RECORDS SUMMARY | 2025-01-30 17:43 | XMS_ITS | Encounter Summary ---
Author Organization [facility] Address [address] [place] [address] Care Team Providers Care Wildlife Conservation Professor Name Role Phone Elsewhere, Pcp Primary Care Provider Unavailabl e Encounter Details Date Type Department Care Team (Late st Contact Info) Description 12/23/2024 Orders Only Division of Gastroenterology in [place], [place] [address] [place] [phone] Vicente Garcia M.D. [address] [place] [phone] Social History Tobacco Use Types Packs/Day Years Used Date Smoking Tobacco: Never Passive Smoke Exposure: Past Smokeless Tobacco: Never Passive Exposure Comments:Ch ildhood exposure. 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 [address] [place] [phone] 02/04/2025 8:20 AM CDT Office Visit Department of Oncology in [place], [place] [address] [place] [phone] Jag Frye, KASH, C.N.P., D.N.P. [address] [place] [phone] 02/04/2025 2:00 PM CDT Infusion Department of Oncology in [place], [place] [address] [place] [phone] Skip Amaya M.D., Ph.D. [address] [place] [phone] 02/08/2025 2:15 PM CDT Clinical Communication Virtual Review in [place], [place] 200 [place] [address] 02/09/2025 9:30 AM CDT Telemedicine Department of Oncology in [address] [place] [address] Jesica Wasserman M.B., B.Ch. [facility] [place] [address] Cecily Nash L.I.C.SJustynW. [facility] [place] [address] 02/10/2025 12:00 PM CDT Lab Department of Infusion Therapy in [place], [place] [address] [place] [phone] Skip Amaya M.D., Ph.D. [address] [place] [phone] 02/10/2025 2:30 PM CDT Office Visit Department of Oncology in [place], [place] [address] [place] [phone] Rosenda Garza MPAS, P.A.-C. [address] [place] [phone] 02/11/2025 8:00 AM CDT Infusion Department of Oncology in [place], [place] [address] [place] [phone] Skip Amaya M.D., Ph.D. [address] [place] [phone] 02/23/2025 2:15 PM CDT Clinical Communication Virtual Review in [place], [place] 200 [place] [address] 02/25/2025 8:30 AM CDT Lab Department of Oncology in [place], [place] [address] [place] [phone] Skip Amaya M.D., Ph.D. [address] [place] [phone] 02/25/2025 10:40 AM CDT Office Visit Department of Oncology in [place], [place] [address] [place] [phone] Sandy Judge APRN, C.N.Bhavin., M.S. [address] [place] [phone] 02/25/2025 11:30 AM CDT Infusion Department of Oncology in [place], [place] [address] [place] [phone] Skip Amaya M.D., Ph.D. [address] [place] [phone] 03/04/2025 6:00 AM CDT Lab Department of Infusion Therapy in [address] [phone] Skip Amaya M.D., Ph.D. [address] [place] [phone] 03/04/2025 8:10 AM CDT Office Visit Department of Oncology in [address] [phone] Jie Shook P.A.-C. [address] [place] [phone] 03/04/2025 9:30 AM CDT Infusion Department of Oncology in [address] [address] Skip Amaya M.D., Ph.D. [address] [place] [phone] 03/10/2025 2:15 PM CDT Clinical Communication Virtual Review in [address] [phone] 03/11/2025 6:00 AM CDT Lab Department of Laboratory Medicine and Pathology, [facility], in [place], [place] [address] [place] [phone] Skip Amaya M.D., Ph.D. [address] [place] [phone] 03/11/2025 7:20 AM CDT Office Visit Department of Oncology in [place], [place] [address] [place] [phone] Bipin Leal P.A.-C., M.S. [address] [place] [phone] 03/11/2025 8:00 AM CDT Infusion Department of Oncology in [place], [place] [address] [place] [phone] Skip Amaya M.D., Ph.D. [address] [place] [phone] 03/24/2025 11:20 AM CDT Lab Department of Infusion Therapy in [place], [place] [address] [place] [phone] Skip Amaya M.D., Ph.D. [address] [place] [phone] 03/24/2025 1:30 PM CDT Office Visit Department of Oncology in [place], [place] [address] [place] [phone] Skip Amaya M.D., Ph.D. [address] [place] [phone] 03/25/2025 7:00 AM CDT Infusion Department of Oncology in [address] [address] Skip Amaya M.D., Ph.D. [address] [place] [phone] 03/29/2025 2:30 PM CDT Clinical Communication Virtual Review in [place], [place] 200 [place] [address] 04/01/2025 6:00 AM CDT Lab Department of Infusion Therapy in [place], [place] [address] [place] [phone] Skip Amaya M.D., Ph.D. [address] [place] [phone] 04/01/2025 8:20 AM CDT Office Visit Department of Oncology in [address] [phone] Precious Hill M.D., Ph.D. [address] [place] [phone] 04/01/2025 9:00 AM CDT Infusion Department of Oncology in [address] [address] Skip Amaya M.D., Ph.D. [address] [place] [phone] 04/07/2025 11:00 AM CDT Lab Department of Infusion Therapy in [address] [address] Skip Amaya M.D., Ph.D. [address] [place] [phone] 04/07/2025 1:20 PM CDT Office Visit Department of Oncology in [address] [phone] Sandy Judge, KASH, C.N.P., M.S. [address] [place] [phone] 04/08/2025 7:00 AM CDT Infusion Department of Oncology in [place], [place] [address] [place] [phone] Skip Amaya M.D., Ph.D. [address] [place] [phone] 04/21/2025 7:15 AM CDT Clinical Communication Virtual Review in [place], [place] 200 [place] [address] 04/22/2025 7:20 AM CDT Lab Department of Infusion Therapy in [address] [address] Skip Amaya M.D., Ph.D. [address] [place] [phone] 04/22/2025 9:20 AM CDT Office Visit Department of Oncology in [address] [phone] Sandy Judge, KASH, C.N.P., M.S. [address] [place] [phone] 04/22/2025 10:30 AM CDT Infusion Department of Oncology in [address] [phone] Skip Amaya M.D., Ph.D. [address] [place] [phone] documented as of this encounter Goals Goal Patient Goal Type Associated Problems Recent Progress Patient-Stated? Author Autogenerat ed Goal Care Plan Autogenerated Problem Hedy Frankel R.N. documented as of this encounter Visit Diagnoses Not on filedocumented in this encounter Additional Health Concerns Active Problems Noted Date Diagnosed Date Autogenerated Problem 11/16/2024 documented as of this encounter Care Teams Wildlife Conservation Professor Relationship Specialty Start Date End Date Elsewhere, Pcp PCP - General Internal Medicine 09/09/23 documented as of this encounter
--- OUTSIDE RECORDS SUMMARY | 2025-01-30 17:43 | XMS_ITS | Clinical Summary ---
Author Organization [facility] Address [address] [place] [address] Care Team Providers Care Travel Manager Name Role Phone Elsewhere, Pcp Primary Care Provider Unavailabl e Source Comments Patient records contain information from all sites at [facility]. For routine questions regarding patient records, call [phone] during business hours, M-F 8:00 AM - 5:00 PM Central Time. Record requests for emergency care only can be directed to [phone] at any time.[facility] Allergies Active Allergy Reactions Criticality Noted Date [...] tablet by mouth every morning. 3 Active sildenafiL (VIAGRA) 100 mg tablet Take [...] surgery - last dose 11/03/23 4 Active LORazepam (ATIVAN) 0.5 mg tablet Take 1 tablet (0.5 mg total) by mouth as needed for anxiety. Do not take concurrently with opioids. 4 Active acetaminophen (TYLENOL) 500 mg tablet Take 2 tablets (1,000 mg total) by mouth 4 (four) times a day. 4 Active Additional Information Patient taking differently:1,000 mg oralAs needed, Reported on 01/25/2025 oxyCODONE (Roxicodone) 5 mg immediate release tabletIndicati ons:Chronic Pain/Nonacute Pain Take 1-2 tablets (5-10 mg total) by mouth every 4 (four) hours as needed for severe pain or score 7-10 of 10 Indication: Chronic Pain/Nonacute Pain. 30 tablet 5 Active prochlorperazi ne (Compazine) 10 mg tabletIndicati ons:Malignant Neoplasm Of Pancreas Tail (HCC) Take 1 tablet (10 mg total) by mouth every 6 (six) hours as needed for nausea or vomiting. 30 tablet 3 5 026 Active ondansetron (Zofran) 8 mg tabletIndicati ons:Malignant Neoplasm Of Pancreas Tail (HCC) Take 1 tablet (8 mg total) by mouth every 8 (eight) hours as needed for nausea or vomiting (unrelieved by prochlorperazine ). 30 tablet 3 5 026 Active clopidogreL (Plavix) 75 mg tablet Take 1 tablet by mouth daily. 4 025 Discontin ued(Thera py completed ) oxyCODONE (Roxicodone) 5 mg immediate release tablet Take 5-10 mg by mouth every 4 (four) hours as needed. 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 Date Type Department Care Team Description 5 Clinical Communication Department of Oncology in [place], [place] [address] [place] [phone] Jurgen Flores Jr., M.D., M.B.A. 5 7:00 AM CDT Infusion Department of Oncology in [address] [phone] kSip Amaya M.D., Ph.D. 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) 5 2:20 PM CDT Education Department of Oncology in [place], [place] [address] [place] [phone] Skip Amaya M.D., Ph.D. Shalonda Ingram R.N., BMT-CN 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) 5 1:20 PM CDT Office Visit Department of Oncology in [place], [place] [address] [place] [phone] Lionel Swenson M.D. 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) 5 11:20 AM CDT Lab Department of Infusion Therapy in [place], [place] [address] [place] [phone] Skip Amaya M.D., Ph.D. 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) 5 11:00 AM CDT Admin Visit Department of Oncology in [place], [place] [address] [place] [phone] 5 3:00 PM CDT [facility] in [place], [place] [address] [place] [phone] Skip Amaya M.D., Ph.D. Perla Chester 5 1:20 PM CDT Office Visit Department of Oncology in [place], [place] [address] [place] [phone] Precious Hill M.D., Ph.D. 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); Secondary Malignant Neoplasm Liver (HCC) 5 Orders Only Department of Oncology in [place], [place] [address] [place] [phone] Lissett Gordillo 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) 5 Orders Only Department of Oncology in [place], [place] [address] [place] [phone] Skip Amaya M.D., Ph.D. 5 8:15 AM CDT - 5 11:59 PM CDT Hospital Encounter Department of Radiology, [facility], in [place], [place] [address] [place] [phone] Skip Amaya M.D., Ph.D. Malignant Neoplasm Of Pancreas Tail (HCC) Discharge Disposition: Home or Self Care 5 8:00 AM CDT Lab Department of Oncology in [place], [place] [address] [place] [phone] Skip Amaya M.D., Ph.D. 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) 5 Orders Only Department of Oncology in [place], [place] [address] [place] [address] Lissett Gordillo 5 Orders Only Department of Oncology in [place], [place] [address] [place] [phone] Skip Amaya M.D., Ph.D. 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) 5 Orders Only Department of Oncology in [place], [place] [address] [place] [phone] Lissett Gordillo 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) 5 10:00 AM CDT Comprehensive Visit Department of Oncology in [place], [place] [address] [place] [phone] Skip Amaya M.D., Ph.D. 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); Mass Pancreas; Depression Major One Episode Moderate (HCC); Hypertensive Chronic Kidney Disease With Stage 1 Through Stage 4 Chronic Kidney Disease, Or Unspecified Chronic Kidney Disease; Ventricular Tachycardia Unspecified (HCC); Chronic Kidney Disease (CKD), Stage 3a Glomerular Filtration Rate (GFR) 45 To 59 (HCC) 5 Orders Only Department of Oncology in [place], [place] [address] [place] [phone] Lissett Gordillo 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) 5 11:02 AM CDT - 5 1:41 PM CDT Hospital Encounter Department of Radiology in [address] [phone] Jesica Wasserman M.B., B.Ch. Jony Avilez M.D. Depression Major One Episode Moderate (HCC); Hypertensive [...] (HCC) Discharge Disposition: Home or Self Care 5 9:30 AM CDT Telemedicine Department of Oncology in [address] [phone] Jesica Wasserman M.B., B.Ch. Cecily Nash, L.I.C.S.W. Malignant Neoplasm Of Pancreas Tail (HCC); Depression Major One Episode Moderate (HCC) 5 Results Follow-Up Department of Medical Genetics in [place], [place] [address] [place] [address] Criselda Hagen, Unlicensed [facility] [employer] Sent Out Lab 5 Documentation Department of Medical Genetics in [place], [place] [address] [place] [address] Criselda Hagen, Unlicensed MA Genetic Testing Results 5 Results Follow-Up Department of Oncology in [address] [place] [phone] Jesica Wasserman M.B., B.Ch. Mismatch Repair (MMR) Protein Immunohistochemistry Only, Tumor 5 Orders Only Department of Oncology in [address] [phone] Juliette Martinez M.S.Agnieszka., L.I.C.S.W. 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); Depression Major One Episode Moderate (HCC) 5 Clinical Communication Department of Oncology in [address] [phone] Jesica Wasserman M.B., B.Ch. 5 Clinical Communication [facility] in [address] [phone] Yanely Silva M.D. 5 2:00 PM CDT Comprehensive Visit Department of Oncology in [address] [phone] Jesica Wasserman M.B., B.Ch. 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 5 Results Follow-Up Division of Gastroenterology in [place], [place] [address] [place] [address] Drea Means APRN, C.N.P., D.N.P. Cytology Fine Needle Aspiration (including core biopsies) 5 Clinical Communication Department of Radiology, [facility] in [place], [place] [address] [place] [address] Akash Hudson M.D. Follow-up (Post procedure call) 5 9:58 AM CDT - 5 1:24 PM CDT Hospital Encounter Department of Radiology, [facility] in [place], [place] [address] [place] [phone] Drea Means APRN C.N.P., D.N.P. Malignant Neoplasm Of Pancreas Adenocarcinoma (HCC); Mass Pancreas Discharge Disposition: Home or Self Care 5 Abstract [place], [place] [address] [place] [phone] Provider, Historical 5 1:00 PM CDT Comprehensive Visit Department of Medical Genetics in [place], [place] [address] [place] [phone] Garland Porter M.D. Purfeerst, Madaline T, M.S., [facility] Mass Pancreas (Primary Dx) 5 12:42 PM CDT - 5 11:59 PM CDT Hospital Encounter Department of Laboratory Medicine and Pathology, [facility] in [place], [place] [address] [place] [phone] Usman Borrego M.D. Mass Pancreas Discharge Disposition: Home or Self Care 5 12:30 PM CDT Comprehensive Visit Department of Medical Genetics in [place], [place] [address] [place] [phone] Garland Porter M.D. Hanson, Grace, Unlicensed [place] Mass Pancreas 5 8:00 AM CDT Comprehensive Visit Division of Gastroenterology in [place], [place] [address] [place] [phone] Drea Means APRN, C.N.PJustyn, D.N.P. Mass Pancreas (Primary Dx) 5 Clinical Communication Department of Medical Genetics in [place], [place] [address] [place] [phone] Danay Diaz M.S., [facility] genetic testing 5 Clinical Communication Division of Gastroenterology in [place], [place] [address] [place] [phone] Prescheduling, Provider Slides returned NOT read 5 Clinical Communication Division of Gastroenterology in [place], [place] [address] [place] [phone] Drea Means APRN, C.N.P., D.N.P. Appt Request 5 Results Follow-Up Division of Gastroenterology in [place], [place] [address] [place] [phone] Drea Means APRN, C.N.P., D.N.P. CBC with Differential, Blood, Comprehensive Metabolic Panel, Bilirubin, Direct, Additional followed-up results: 4 5 11:05 AM CDT - 5 11:59 PM CDT Hospital Encounter Department of Radiology, [facility], in [place], [place] [address] [place] [address] Garland Porter M.D. Mass Pancreas Discharge Disposition: Home or Self Care 5 10:04 AM CDT - 5 11:04 AM CDT Hospital Encounter Department of Laboratory Medicine and Pathology, [facility], in [place], [place] [address] [place] [address] Garland Porter M.D. Mass Pancreas Discharge Disposition: Home or Self Care 5 4:15 PM CDT Ancillary Procedure Department of Radiology in [place], [place] [address] [place] [address] Garland Porter M.D. Mass Pancreas 5 3:00 PM CDT Virtual Visit Division of Gastroenterology in [place], [place] [address] [place] [phone] Luisa Butts M.S.N., R.N. Mass Pancreas (Primary Dx); Malignant Neoplasm Of Pancreas Adenocarcinoma (HCC) 5 Orders Only Division of Gastroenterology in [place], [place] [address] [place] [address] [facility], ProviderMD Malignant Neoplasm Of Pancreas Adenocarcinoma (HCC) 5 Orders Only Division of Gastroenterology in [place], [place] [address] [place] [phone] Vicente Garcia M.D. 5 Clinical Communication Division of Gastroenterology in [place], [place] [address] [place] [phone] Prescheduling, Provider Pancreas (Pre-Visit Scheduling) 5 Clinical Communication Division of Gastroenterology in [place], [place] [address] [place] [phone] Prescheduling, Provider Previsit Preparation; Hepatobiliary; OSM - Outside Materials from Last 3 Months Family History Medical History Relation Name Comments Blood clot Brother 1 RA - Rheumatoid arthritis Daughter 2 HL AB27 positive Arthritis Father Heart failure Father Cancer Maternal Grandfather Possibl e Arthritis Mother Coronary artery disease Mother dece ased Hyperlipidemia Mother Hypertension Mother Stroke Mother Ovarian cancer Mother's Sister Lung cancer Sister 1 Lung spot, ruma julius, unknown if cancerous Relation Name Status Comments Brother 1 Alive Brother 2 Alive Daughter 1 Alive Daughter 2 Alive Daughter 3 Alive Daughter 4 Alive Father (Age 83-84) d. CHF Father's Sister 1 Father's Sister 2 Granddaughter Alive Grandson 1 Alive TWO Grandson 2 Alive TWO- one doing GT for skin condition Grandson 3 Alive TWO Grandson 4 Alive Half-Brother Alive Maternal Cousin Alive Limited info rmation Maternal Grandfather d. poss ibly cancer Maternal Grandmother Mother (Age 95) d. age-rel ated causes Mother's Brother Mother's Sister (Age 80s) d. can cer Niece/Nephew Alive No cancer for n ieces or nephews Paternal Cousin Alive Limited cont act Paternal Grandfather (Age 88) Paternal Grandmother (Age 80s) Sister 1 Alive Sister 2 Alive Sister 3 Alive Sister 4 Alive Sister 5 Alive Sister 6 Alive Sister 7 Alive Social History Tobacco Use Types Packs/Day Years Used Date Smoking Tobacco: Never Passive Smoke Exposure: Past Smokeless Tobacco: Never Passive Exposure Comments:Ch ildhood exposure. Alcohol Use Standard Drinks/Week Comments Not Currently 1 (1 standard drink = 0.6 oz pur e alcohol) 0-1 drink per week [facility] Utilities Answer Date Recorded In the past 12 months has Fon, gas, oil, or water [employer] threatened to shut off services in your [...] your living situation today? I have a [facility] place to live 12/23/2024 Education Answer Date Recorded What is the highest level of school you have completed or the highest degree you have received? Master's degree (e.g., MA, MS, Katelyn, MEd, [employer]NACE [employer]ENDER, KELLEE) 01/05/2025 Sex and Gender Information Value Date Recorded Sex Assigned at Male 09/10/2023 7:48 AM [employer] ADJUSTER Legal Sex Male 10:11 PM [employer] Gender Identity Male 09/10/2023 7:48 AM [employer] ADJUSTER Sexual Orientation Straight 09/10/2023 7: 48 AM [employer] INS[employer] AND ADJUSTER Last Filed Vital Signs Vital Sign Reading Time Taken Comments Blood Pressure 126/74 01/28/2025 7:46 AM CDT Pulse 42 01/28/2025 7:46 AM CDT Temperature 36.2 C (97.2 F) 01/27/2025 1:12 PM CDT Respiratory Rate 16 01/27/2025 1:12 PM CDT Oxygen Saturation 100% 01/27/2025 1:12 PM CDT Inhaled Oxygen Concentration - - Weight 95.5 kg (210 lb 8.6 oz) 01/28/2025 7:46 A M CDT Height 182.5 cm (5' 11.85) 01/27/2025 1:12 PM C DT Body Mass Index 28.67 01/27/2025 1:12 PM CDT Plan of Treatment Upcoming Encounters Date Type Department Care Team (Latest Contact Info) Description 02/04/2025 7:00 AM CDT Lab Department of Infusion Therapy in [place], [place] 200 [place] [phone] Skip Amaya M.D., Ph.D. [address] [place] [phone] 02/04/2025 8:20 AM CDT Office Visit Department of Oncology in [place], [place] [address] [place] [phone] Jag Frye, KASH, C.N.P., D.N.P. [address] [place] [phone] 02/04/2025 2:00 PM CDT Infusion Department of Oncology in [place], [place] [address] [place] [phone] Skip Amaya M.D., Ph.D. [address] [place] [phone] 02/08/2025 2:15 PM CDT Clinical Communication Virtual Review in [place], [place] 200 [place] [phone] 02/09/2025 9:30 AM CDT Telemedicine Department of Oncology in [address] [phone] Jesica Wasserman M.B., B.Ch. [address] [place] [phone] Cecily Nash L.I.C.S.W. [address] [place] [phone] 02/10/2025 12:00 PM CDT Lab Department of Infusion Therapy in [address] [phone] Skip Amaya M.D., Ph.D. [address] [place] [phone] 02/10/2025 2:30 PM CDT Office Visit Department of Oncology in [place], [place] [address] [place] [phone] Rosenda Garza MPAS, P.A.-C. [address] [place] [phone] 02/11/2025 8:00 AM CDT Infusion Department of Oncology in [place], [place] [address] [place] [phone] Skip Amaya M.D., Ph.D. [address] [place] [phone] 02/23/2025 2:15 PM CDT Clinical Communication Virtual Review in [place], [place] 200 [place] [address] 02/25/2025 8:30 AM CDT Lab Department of Oncology in [place], [place] [address] [place] [phone] Skip Amaya M.D., Ph.D. [address] [place] [phone] 02/25/2025 10:40 AM CDT Office Visit Department of Oncology in [place], [place] [address] [place] [phone] Sandy Judge APRN, C.N.P., M.S. [address] [place] [phone] 02/25/2025 11:30 AM CDT Infusion Department of Oncology in [place], [place] [address] [place] [phone] Skip Amaya M.D., Ph.D. [address] [place] [phone] 03/04/2025 6:00 AM CDT Lab Department of Infusion Therapy in [address] [address] Skip Amaya M.D., Ph.D. [address] [place] [phone] 03/04/2025 8:10 AM CDT Office Visit Department of Oncology in [address] [phone] Jie Shook P.A.-C. [address] [place] [phone] 03/04/2025 9:30 AM CDT Infusion Department of Oncology in [place], [place] [address] [place] [phone] Skip Amaya M.D., Ph.D. [address] [place] [phone] 03/10/2025 2:15 PM CDT Clinical Communication Virtual Review in [place], [place] 200 [place] [address] 03/11/2025 6:00 AM CDT Lab Department of Laboratory Medicine and Pathology, [facility] in [address] [phone] Skip Amaya M.D., Ph.D. [address] [place] [phone] 03/11/2025 7:20 AM CDT Office Visit Department of Oncology in [place], [place] [address] [place] [phone] Bipin Leal P.A.-Jordy., M.S. [address] [place] [phone] 03/11/2025 8:00 AM CDT Infusion Department of Oncology in [place], [place] [address] [place] [phone] Skip Amaya M.D., Ph.D. [address] [place] [phone] 03/24/2025 11:20 AM CDT Lab Department of Infusion Therapy in [address] [phone] Skip Amaya M.D., Ph.D. [address] [place] [phone] 03/24/2025 1:30 PM CDT Office Visit Department of Oncology in [place], [place] [address] [place] [phone] Skip Amaya M.D., Ph.D. [address] [place] [phone] 03/25/2025 7:00 AM CDT Infusion Department of Oncology in [place], [place] [address] [place] [phone] Skip Amaya M.D., Ph.D. [address] [place] [phone] 03/29/2025 2:30 PM CDT Clinical Communication Virtual Review in [address] [phone] 04/01/2025 6:00 AM CDT Lab Department of Infusion Therapy in [place], [place] [address] [place] [phone] Skip Amaya M.D., Ph.D. [address] [place] [phone] 04/01/2025 8:20 AM CDT Office Visit Department of Oncology in [address] [phone] Precious Hill M.D., Ph.D. [address] [place] [phone] 04/01/2025 9:00 AM CDT Infusion Department of Oncology in [address] [phone] Skip Amaya M.D., Ph.D. [address] [place] [phone] 04/07/2025 11:00 AM CDT Lab Department of Infusion Therapy in [place], [place] [address] [place] [phone] Skip Amaya M.D., Ph.D. [address] [place] [phone] 04/07/2025 1:20 PM CDT Office Visit Department of Oncology in [place], [place] [address] [place] [phone] Sandy Judge APRN, C.N.P., M.S. [address] [place] [phone] 04/08/2025 7:00 AM CDT Infusion Department of Oncology in [place], [place] [address] [place] [phone] Skip Amaya M.D., Ph.D. [address] [place] [phone] 04/21/2025 7:15 AM CDT Clinical Communication Virtual Review in [place], [place] 200 [place] [phone] 04/22/2025 7:20 AM CDT Lab Department of Infusion Therapy in [address] [phone] Skip Amaya M.D., Ph.D. [address] [place] [phone] 04/22/2025 9:20 AM CDT Office Visit Department of Oncology in [place], [place] [address] [place] [phone] Sandy Judge APRN, C.N.P., M.S. [address] [place] [phone] 04/22/2025 10:30 AM CDT Infusion Department of Oncology in [place], [place] [address] [place] [address] [place] [phone] Skip Amaya M.D., Ph.D. [address] [place] [address] Health Maintenance Due Date Last Done Comments CT Colonography 1954 Cologuard 1955 FIT 1954 Hepatitis C Screening 1954 Pneumococcal vaccine (50+ years) (1 of 2 - PCV) 1973 Zoster Vaccines (1 of 2) 1973 RSV vaccine - (32-36 weeks) or 60+ years (1 - Risk 60-74 years 1-dose series) 2014 DTaP,Tdap,and Td Vaccines (2 - Td or Tdap) 09/24/2020 09/24/2010 COVID-19 Vaccine (8 - Pfizer risk 2023-) 11/07/2024 05/10/2024, 04/18/2023, 04/02/2022, Additional history exists Influenza Vaccine (#1) 2025 , 04/18/2023, 04/02/2022, Additional history exists Depression Monitoring (PHQ-9) 05/14/2025 01/11/2025 Office Visit for Blood Pressure Check / Re-check 01/28/2026 01/28/2025 Colonoscopy 12/06/2027 12/05/2017 Colorectal Cancer Screening 12/06/2027 Fasting Glucose for Diabetes Screening 01/28/2028 01/27/2025, 01/21/2025, 12/28/2024, Additional history exists Lipid (Cholesterol) Screening 02/25/2028 02/24/2023, 01/11/2022, 05/30/2020, Additional history exists Depression Monitoring (PHQ-9 for quality tracking) Completed 01/11/2025 Fall Risk Screen (Annual) Completed 01/17/2025 IPV Vaccines Aged Out No longer eligi ble based on patient's age to complete this topic Goals Goal Patient Goal Type Associated Problems Recent Progress Patient-Stated? Author Autogenerat ed Goal Care Plan Autogenerated Problem No Hedy Lees, RJustynN. Medical Devices Implanted Type Area Stage Manager Device Identifier Shelf Expiration Date Model / Serial / Lot Cardiac Stent Implanted:Qty : 3 Cardiac Stent Heart Lead Infinity 40x1.27x0.5 Blk - [id number] - [id number] Implanted:Qty : 1 on 11/17/2023 by Kwame Whittaker M.D., Ph.D. at [facility] Deep [employer] [id number] 07/17/2024 [id number] / [id number] / Lead Infinity 40x1.27x0.5 Blk - [id number] - [id number] Implanted:Qty : 1 on 11/17/2023 by Kwame Whittaker M.D., Ph.D. at [facility] [employer] [id number] 07/22/2025 6172 / [id number] / Lead Infinity Ext 8ch 50 Blk - [id number] - [id number] Implanted:Qty : 1 on 11/17/2023 by Kw[facility]ittaker M[facility] [facility] Left: Neck Hameed [id number] 08/19/2025 6371 / [id number] / Description:Marked Lead Infinity Ext 8ch 50 Blk - [id number] - [id number] Implanted:Qty : 1 on 11/17/2023 by Kwame Whittaker M.D., Ph.D. at [facility] Deep Brain Stimulator Right: Neck Hameed [id number] 08/19/2025 6371 / [id number] / Liberta Rc Dbs Battery Implanted:Qty : 1 on 11/17/2023 by Kwame Whittaker M.D., Ph.D. at [facility] Deep Brain Stimulator Left: Chest Hameed [id number] 08/29/2025 82787 / [id number] / Plt Mtr Cmf Str 2h 12 - [id number] Implanted:Qty : 1 on 11/17/2023 by Kwame Whittaker M.D., Ph.D. at [facility] Hardware e.g. pins/screws/r ods Right: Cranial Depuy Synthes 04.503.0 62 / / Scrw Ti St Mtr Ronak 1.55x2.65x5 - [id number] Implanted:Qty : 2 on 11/17/2023 by Kwame Whittaker M.D., Ph.D. at [facility] Hardware e.g. pins/screws/r ods Left: Cranial Depuy Synthes 04.503.1 15.01 / / Scrw Ti St Mtr Ronak 1.55x2.65x5 - [id number] Implanted:Qty : 2 on 11/17/2023 by Kwame Whittaker M.D., Ph.D. at [facility] Hardware e.g. pins/screws/r ods Right: Cranial Depuy Synthes 04.503.1 15.01 / / Plt Mtr Cmf Str 2h 12 - [id number] Implanted:Qty : 1 on 11/17/2023 by Kwame Whittaker M.D., Ph.D. at [facility] Hardware e.g. pins/screws/r ods Left: Cranial Depuy Synthes 04.503.0 62 / / Prt Pwr Mri Mctrdcr 8f - [id number] Implanted:Qty : 1 on 01/17/2025 by Jony Avilez M.D. at [facility] Implantable Port Right: Chest Wall C.R.Bard 09/03/2025 [id number] / / [id number] Ocular Lens-Bilatera l Ocular Lens Bilateral: Eye Shoulder Implant-Right Total Replacement Shoulder Implant Right: Shoulder Procedures Procedure Name Priority Date/Time Associated Diagnosis Comments ECG Routine 01/27/2025 12:49 PM CDT Malignant Neoplasm Of Pancreas Tail (HCC) ECG Routine 01/27/2025 12:48 PM CDT Malignant Neoplasm Of Pancreas Tail (HCC) ECG Routine 01/27/2025 12:47 PM CDT Malignant Neoplasm Of Pancreas Tail (HCC) [...] CDT Malignant Neoplasm Of Pancreas Tail (HCC) ECG Routine 01/21/2025 10:41 AM CDT Malignant Neoplasm Of Pancreas Tail (HCC) ECG Routine 01/21/2025 10:40 AM CDT Malignant Neoplasm Of Pancreas Tail (HCC) ECG Routine 01/21/2025 10:39 AM CDT Malignant Neoplasm Of Pancreas Tail (HCC) CT ABDOMEN PELVIS WITH IV CONTRAST RAD [...] CDT Malignant Neoplasm Of Pancreas Tail (HCC) IR IMPLANTED VASCULAR ACCESS DEVICE PLACEMENT RAD [...] PULSE OXIMETRY Routine 01/17/2025 12:01 PM CDT AURA TEMPUS XT, TIS Routine 12/30/2024 12:57 PM CDT Malignant Neoplasm Of Pancreas Tail (HCC) US LIVER BIOPSY RAD - Routine (most inpatients and all outpatients) 12/30/2024 11:29 AM CDT Malignant Neoplasm Of Pancreas Adenocarcinoma (HCC) Mass Pancreas CYTOLOGY FINE NEEDLE ASPIRATION (INCLUDES CORE BIOPSIES Timed 12/30/2024 11:14 AM CDT Malignant Neoplasm Of Pancreas Adenocarcinoma (HCC) Mass Pancreas MMR PROTEIN, IHC ONLY, TUMOR Routine 12/30/2024 11:14 AM CDT Depression Major One Episode Moderate (HCC) Hypertensive Chronic Kidney Disease With Stage 1 Through Stage 4 Chronic Kidney Disease, Or Unspecified Chronic Kidney Disease Malignant Neoplasm Of Pancreas Tail (HCC) Ventricular Tachycardia Unspecified (HCC) Chronic Kidney Disease (CKD), Stage 3a Glomerular Filtration Rate (GFR) 45 To 59 (HCC) Mass Pancreas Accessbio Routine 12/29/2024 12:53 PM CDT MISCELLANEOUS SENT OUT LAB TEST Routine 12/29/2024 12:[address]T [address] CT PANCREAS ANGIOGRAM TRIPLE PHASE AND PELVIS WITH IV CONTRAST RAD - Routine (most inpatients and all outpatients) 12/28/2024 12:48 PM CDT Mass Pancreas HEMOGLOBIN A1C, B Routine 12/28/2024 10:35 AM CDT Mass Pancreas PROTHROMBIN TIME (PT), P Routine 12/28/2024 10:35 AM CDT Mass Pancreas PREALBUMIN (PAB), S Routine 12/28/2024 10:35 AM CDT Mass Pancreas CFDNA KRAS 12, 13, 61, 146 BLOOD Routine 12/28/2024 10:35 AM CDT Mass Pancreas CARBOHYDRATE AG 19-9 (CA 19-9), S Routine 12/28/2024 10:35 AM CDT Mass Pancreas BILIRUBIN DIRECT, S/P Routine 12/28/2024 10:35 AM CDT Mass Pancreas COMPREHENSIVE METABOLIC PANEL, S/P Routine 12/28/2024 10:35 AM CDT Mass Pancreas CBC WITH DIFFERENTIAL, B Routine 12/28/2024 10:35 AM CDT Mass Pancreas INTERPRETATION OF OUTSIDE CT CHEST RAD - Routine (most inpatients and all outpatients) 12/24/2024 5:00 PM CDT Mass Pancreas OUTSIDE CT BODY Routine 12/23/2024 1:30 PM CDT OUTSIDE US BODY Routine 12/21/2024 12:[address] BODY Routine 12/21/2024 12:00 AM CDT OUTSIDE US BODY Routine 12/21/2024 12:00 AM CDT from Last 3 Months Results * ECG 12 Lead (01/27/2025 12:49 PM CDT) Only the most recent of6 resultswithin the time period is included. Ventricular Rate ECG/Min 85 BPM MUSE IN Interval 132 ms MUSE QRSD Interval 88 ms MUSE QT Interval 392 ms MUSE QTC Interval 466 ms MUSE P [place] 59 degrees MUSE R [place] 41 degrees MUSE T Wave [place] 72 degrees MUSE 01/27/2025 12:4 9 PM CDT 01/27/2025 1:27 PM CDT Impressions MUSE - 01/27/2025 1:27 PM CDT Sinus rhythm Premature ventricular complexes Otherwise normal ECG When compared with ECG of 21-Jan-2025 10:41, No significant change was found Reviewed by KITA Coker Narrative Procedure Note Rodrigue Obrien Jr., M.D. - 07/24/2025 IMPRESSION: Sinus rhythm Premature ventricular complexes Otherwise normal ECG When compared with ECG of 21-Jan-2025 10:41, No significant change was found Reviewed by KITA Coker us Skip Amaya M.D., Ph.D. ECG ORDERABLES Final Re sult Performing Organization Address City/[facility] de Phone Number MUSE NA * (ABNORMAL) Carbohydrate Antigen 19-9 (CA 19-9) (01/27/2025 10:55 AM CDT) Only the most recent of3 resultswithin the time period is included. Carbohydrate Ag 19-9, S 92764(H) <35 U/mL 01/28/2025 12:50 PM CDT [facility] Comment: ----ADDITIONAL INFORMATION---- The testing method is an immunoenzymatic assay manufactured by [employer]. and performed on the [employer] DxI 800. Values obtained with different assay methods or kits may be different and cannot be used interchangeably. Test results cannot be interpreted as absolute evidence for the presence or absence of malignant disease. Blood (Blood, Venous) 01/27/2025 10:55 AM CDT 01/28/2025 11:37 AM CDT us Skip Amaya M.D., Ph.D. LAB BLOOD ADD-ON Final R esult Performing Organization Address [facility] de Phone Number [facility] [address] [place] [address] [facility] [address] [place] [address] * APTT (Activated Partial Thromboplastin Time) (01/27/2025 10:55 AM CDT) Only the most recent of2 resultswithin the time period is included. Pathologist [facility] Activated Partial Thrombopl Time, P 26 25 - 37 sec 01/27/2025 11:27 AM CDT DTL Blood (Blood, Venous) 01/27/2025 10:55 AM CDT 01/27/2025 11:07 AM CDT Skip Amaya M.D., Ph.D. LAB BLOOD ADD-ON Final R esult Performing Organization Address City/[facility] Co de Phone Number [address] [address] * Prothrombin Time (PT) (01/27/2025 10:55 AM CDT) Only the most recent of3 resultswithin the time period is included. Pathologist [facility] Prothrombin Time, P 11.4 9.4 - 12.5 sec 01/27/2025 11:27 AM CDT DTL INR 1.0 0.9 - 1.1 01/27/2025 11:27 AM CDT DTL Comment: ----ADDITIONAL INFORMATION---- Standard intensity warfarin therapeutic range: 2.0 to 3.0 High intensity warfarin therapeutic range: 2.5 to 3.5 Blood (Blood, Venous) 01/27/2025 10:55 AM CDT 01/27/2025 11:07 AM CDT Skip Amaya M.D., Ph.D. LAB BLOOD ADD-ON Final R [facility] Performing Organization Address [facility] Co de Phone Number [facility] [address] [place] [address], [address] [address] * (ABNORMAL) CBC with Differential, Blood (01/27/2025 10:55 AM CDT) Only the most recent of3 resultswithin the time period is included. Hemoglobin 14.4 13.2 - 16.6 g/dL 01/27/2025 [...] Ph.D. LAB BLOOD ADD-ON Final R esult [facility] [address] [place] [address], [facility] DTL [facility] [address] [place], [place] [address] [place] [address] [place] [address] * Phosphorus Inorganic (01/27/2025 10:55 AM CDT) Only the most recent of2 resultswithin the time period is included. Pathologist [facility] Phosphorus (Inorganic), S 3.0 2.5 - 4.5 mg/dL 01/27/2025 11:50 AM CDT DTL Blood (Blood, Venous) 01/27/2025 10:55 AM CDT 01/27/2025 11:23 AM CDT us Skip Amaya M.D., Ph.D. LAB BLOOD ADD-ON Final R esult [facility] [address] [place] [address] * Magnesium (01/27/2025 10:55 AM CDT) Only the most recent of2 resultswithin the time period is included. [facility] Magnesium, S 2.2 1.7 - 2.3 mg/dL 01/27/2025 11:50 AM CDT DTL Blood (Blood, Venous) 01/27/2025 10:55 AM CDT 01/27/2025 11:23 AM CDT us Skip Amaya M.D., Ph.D. LAB BLOOD ADD-ON Final esult [facility] [address] [place] [address] * LD (Lactate Dehydrogenase) (01/27/2025 10:55 AM CDT) Only the most recent of2 resultswithin the time period is included. [facility] Katrina LD 146 122 - 222 U/L 01/27/2025 12:06 PM CDT DTL Blood (Blood, Venous) 01/27/2025 10:55 AM CDT 01/27/2025 11:40 AM CDT us Skip Amaya M.D., Ph.D. LAB BLOOD NON ADD-ON Fin al Result [facility] [address] [place] [address], [place] DTL [address] [address] * (ABNORMAL) Comprehensive Metabolic Panel (01/27/2025 10:55 AM CDT) Only the most recent of3 resultswithin the time period is included. Pathologist [facility] Potassium, S 4.7 3.6 - 5.2 mmol/L [...] Ph.D. LAB BLOOD ADD-ON Final R esult [facility] [address] [place] [address], [facility] DTL [facility] [address] [place] [address] * CT Abdomen Pelvis with IV Contrast [...] No substantial change in upper abdominal lymphadenopathy. us Skip Amaya M.D., Ph.D. IMG CT PROCEDURES [...] Anatomical Region Laterality Modality Head, Neuroradiology RST [facility] , Neuroradiology ARZ [facility] Neuroradiology FLA LOS N/A Computed Tomography, Compute d Tomography 01/21/2025 9:13 AM CDT Impressions 01/21/2025 10:38 AM CDT Stable bilateral DBS leads. Remainder negative. Narrative 01/21/2025 10:38 AM CDT EXAM: CT HEAD WITHOUT AND WITH IV CONTRAST COMPARISON: Outside head CT without contrast dated 02/08/2024 and [facility] head CT dated 11/27/2023. FINDINGS: The [...] head CT without contrast dated 02/08/2024 and [facility] head CT dated 11/27/2023. FINDINGS: The noncontrast [...] IMPRESSION: Stable bilateral DBS leads. Remainder negative. us Skip Amaya M.D., Ph.D. IMG CT PROCEDURES Final Result * IR Implanted Vascular Access Device Placement [...] medications. Patient education provided by a care cylinder steamer. Patient was ready to learn with no [...] Vein Venogram: No Venous access device: 8 Bruneian single lumen PowerPort with non-valved open-ended catheter [...] medications. Patient education provided by a care cylinder steamer. Patient was ready to learn withno apparent [...] Vein Venogram: No Venous access device: 8 Bruneian single lumen PowerPort with gas-iylqxnbkku-sukbl catheter tip. Of note, this is not [...] u/mL heparin after each use. Jesica Peña BJuan. IMG IR PROCEDURES Final R esult * Aura Tempus xT, Tissue - Sent Out Lab (12/30/2024 12:57 PM CDT) Aura Tempus xT, Tis Collected, Sent to Reference Lab DEFAULT 01/25/2025 8:32 AM CDT [facility] Tissue (Other, Specify in Comments) 12/30/2024 12:57 PM CDT 01/25/2025 8:32 AM CDT Skip Amaya M.D., Ph.D. LAB GENETIC TESTING Dana l Result [facility] REFERRALS [address] [place] [address], [facility] [address] [place] [address] * US Liver Biopsy (12/30/2024 11:29 AM [...] hepatic mass core biopsy. NR us Drea Means APRN, C.N.P., D.N.P. IMG US PROCEDURES Final Result * (ABNORMAL) Cytology Fine Needle Aspiration (including core biopsies) (12/30/2024 11:14 AM CDT) (A) 3:04 PM CDT DTL Disclaimer This test was developed and its performance characteristics determined by [facility] in a manner consistent with CLIA [...] A1-A2,two cores in each cassette. Grossed by KRISS. (A) 01/03/2025 3:04 PM CDT DTL Source A. Liver, Mass, fine needle aspiration(A) 01/03/2025 3:04 PM CDT DTL Addendum Aura Maria Apus xT, Solid Tumor has been requested by Dr. Skip Amaya and will be performed on block A2 at [facility], [employer], [place], [place] Signed by Mariana LindsayB.S., Ph.D. 01/24/2025 4:04 PM The following test(s) will be performed in the [facility] at the request of Jesica Wasserman M.B., [facility]: MMR Protein, IHC Only, Tumor (IHC) [...] Tissue (Liver) 12/30/2024 11 :14 AM CDT us Drea Means APRN, C.N.P., D.N.P. LAB SURG PATH ORD ERABLES Edited Result - Final [facility] [address] [place] [address], [place] DTL [address] [place] [address] * Mismatch Repair (MMR) Protein Immunohistochemistry Only, [...] 5 4:25 PM CDT DTL Tissue ID [id number] 5 4:25 PM CDT DTL Released By [...] expression by IHC (Mod Pathol. 2019;33(5):871-879 (PMID: [id number])). THERAPEUTIC IMPLICATIONS Current data suggest that in advanced stage solid tumors, targeted immunotherapies such as anti-PD-1 therapies are more likely to be effective in mismatch repair-deficient tumors than in mismatch repair-proficient tumors (Science. 2017 Jan 31;357(3996):409- 413 (PMID 52087270); J Clin Oncol. 2018 Jul 20:[id number] (PMID 46796926)). For interpretation of therapeutic implications of these [...] MLH-1 immunohistochemistry studies (anti-MLH-1 clone ES05, [employer], [place], [place]; [employer] Optiv[employer] + Optiview AMP Detection) MSH-2 : specimen for MSH-2 immunohistochemistry studies (anti-MSH-2 clone FE11, [facility], [place], [place]; Le[employer] Bello Polymer Refine Detection) MSH-6: specimen for MSH-6 immunohistochemistry studies (anti-MSH-6 clone SP93, [employer], [place], [place]; [employer] Optiview Detection) PMS-2: specimen for PMS-2 immunohistochemistry studies (anti-PMS-2 clone EP51, [employer], [place], [place]; [employer] Optiview + Optiview AMP Detection) [...] its performance characteristics determined by [facility] in a manner consistent with CLIA requirements. This test has not been cleared or approved by the U.S. Food and Drug Administration. Tissue (Liver) 12/30/2024 11 :14 AM CDT 01/10/2025 11:17 AM CDT Jesica Peña B.Ch. LAB GENETIC TESTING Final Result Performing Organization Address City/[facility]/ZIP Co de Phone Number [facility] [address] [place] [address], [facility] [address] [place] [address] * Misc. [employer] Sent Out Lab (12/29/2024 12:53 PM CDT) Test Name [facility] Custom + RNA Panel 12/29/2024 12:53 PM CDT INVC Result SEE COMMENT 01/05/2025 1:01 PM CDT INVC Comment: For final report, select Lab-Send Out Lab Results hyperlink below. 12/29/2024 12:5 3 PM CDT 12/29/2024 3:45 PM CDT us Usman Borrego M.D. LAB MISC ORDERABLES Final Result Performing Organization Address City/[facility]/ZIP Co de Phone Number [employer] [address] [place] [address], [facility] INV [employer] [address] [place] [address] * [id number] [facility] Custom + RNA Panel - Miscellaneous Test (12/29/2024 12:50 PM CDT) Test Name [facility] Custom + RNA Panel 12/29/2024 12:50 PM CDT HLS Result Specimen sent out; results to follow DEFAULT 12/29/2024 12:50 PM CDT HLS Blood (Blood, Venous) 12/29/2024 12:50 PM CDT 12/29/2024 12:50 PM CDT Usman Borrego M.D. LAB MISC ORDERABLES Final Result [facility] [address] [place] [address], [facility] HLS [facility] [address] [place] [address] * CT Pancreas Angiogram Triple Phase and [...] and periportal lymph nodes. [place] Porter M.D. [facility] CT PROCEDURES Final Result * Cell-free DNA KRAS 12, 13, 61,146, [...] REFERENCES 1. Gisselle Oncol. 2012;24(8):2062- 7 (PMID [id number]) 2. Gina Rev Clin Oncol. 2010Feb 26;8(11):661-8 (PMID [id number]) 3. Mod Pathol. 2007; Suppl 2:S16-22 (PMID 43698636) 4. J Clin Oncol. 2004Mar 07;23(25):5900-9 (PMID [id number]) 12/30/2024 11:34 AM CDT DTL Comment: ----ADDITIONAL [...] its performance characteristics determined by [facility] in a manner consistent with CLIA requirements. This test has not been cleared or approved by the U.S. Food and Drug Administration. Blood (Blood, Venous) 12/28/2024 10:35 AM CDT 12/28/2024 11:34 AM CDT Narrative [facility] - 12/30/2024 11:34 AM CDT Specimen Information: Specimen ID: [id number] Specimen Type: Blood Specimen Collection Start Date: 12/28/2024 10:35 AM Specimen Received Date: 12/28/2024 11:34 AM Specimen ID: [id number] Specimen Type: Blood Specimen Collection Start Date: 12/28/2024 10:35 AM Specimen Received Date: 12/28/2024 11:34 AM us [place] Porter M.D. LAB GENETIC TESTING Final Result Performing Organization Address City/[facility]/ZIP Co de Phone Number [facility] [address] [place] [address], [facility] DT [address] [place] [address] * Prealbumin (PAB) (12/28/2024 10:35 AM CDT) Prealbumin (PAB), S 34 19 - 38 mg/dL 12/29/2024 8:10 AM CDT [facility] Blood (Blood, Venous) 12/28/2024 10:35 AM CDT 12/28/2024 6:17 PM CDT us [place] Porter M.D. LAB BLOOD ADD-ON Final Result [facility] [address] [place] [address] [facility] [address] [place] [address] * (ABNORMAL) Hemoglobin A1c (12/28/2024 10:35 AM [...] Porter M.D. LAB [place] [address], [place] [address] * Bilirubin, Direct (12/28/2024 10:35 AM CDT) Bilirubin, Direct, S 0.2 0.0 - 0.3 mg/dL 12/28/2024 11:46 AM CDT DT Blood (Blood, Venous) 12/28/2024 10:35 AM CDT 12/28/2024 11:24 AM CDT [place] Porter M.D. LAB BLOOD ADD-ON Final Result Performing Organization Address City/[facility]/[place] [address], [place] [address] * Interpretation of Outside CT Chest (12/24/2024 [...] Outside chest CT 02/18/2024, subsequent [facility] CT abdomen 12/28/2024. FINDINGS: No definitive [...] Outside chest CT 02/18/2024, subsequent [facility] CT abdomen12/28/2024. FINDINGS: No definitive change [...] as further characterizedon subsequent CT abdomen. [place] Porter M.D. [facility] CT PROCEDURES Final Result * Outside CT Body (12/23/2024 1:30 PM CDT) Only the most recent of2 resultswithin the time period is included. 12/23/2024 2:37 PM CDT Addenda Addendum by Corengi, Outside on 12/23/2024 2:37 PM CDT BELOW REPORT RECEIVED BY [facility] ON 12/24/2024 09:46:10 [id number] For Patients: As a result of the [...] CT abdomen pelvis. Bones: Unremarkable for age. Impression: 1. Minimally increased indeterminate right lower lobe [...] MD @ 12/23/2024 2:37:44 PM (Electronically Signed) READ BY Charissa Monteiro RELEASED BY SNEHAL Addendum by Corengi, Outside on 12/23/2024 2:37 PM CDT BELOW REPORT RECEIVED BY [facility] ON 12/24/2024 09:46:10 [id number] For Patients: As a result of the [...] CT abdomen pelvis. Bones: Unremarkable for age. Impression: 1. Minimally increased indeterminate right lower lobe [...] MD @ 12/23/2024 2:37:44 PM (Electronically Signed) READ BY Charissa Monteiro RELEASED BY SNEHAL Addendum by Corengi, Outside on 12/23/2024 2:37 PM CDT BELOW REPORT RECEIVED BY [facility] ON 12/24/2024 09:45:09 [id number] For Patients: As a result of the [...] lower lobe paramediastinal nodule measuring 9 mm (/62), previously [address] from 02/18/2024 [...] CT abdomen pelvis. Bones: Unremarkable for age. Impression: 1. Minimally increased indeterminate right lower lobe [...] MD @ 12/23/2024 2:37:44 PM (Electronically Signed) READ BY Charissa Monteiro RELEASED BY SNEHAL Addendum by Corengi, Outside on 12/23/2024 2:37 PM CDT BELOW REPORT RECEIVED BY [facility] ON 12/24/2024 09:45:09 [id number] For Patients: As a result of the [...] CT abdomen pelvis. Bones: Unremarkable for age. Impression: 1. Minimally increased indeterminate right lower lobe [...] MD @ 12/23/2024 2:37:44 PM (Electronically Signed) READ BY Charissa Monteiro RELEASED BY SNEHAL Addendum by Corengi, Outside on 12/23/2024 2:37 PM CDT BELOW REPORT RECEIVED BY [facility] ON 12/24/2024 09:44:15 [id number] For Patients: As a result of the [...] CT abdomen pelvis. Bones: Unremarkable for age. Impression: 1. Minimally increased indeterminate right lower lobe [...] MD @ 12/23/2024 2:37:44 PM (Electronically Signed) READ BY Charissa Monteiro RELEASED BY SNEHAL Narrative IMAGING - 12/24/2024 10:00 AM CDT This order has been created and auto-finalized to support the import of outside images. If available, original interpretation can be found on the Media Tab in Chart Review, in Document Viewer, as an image in InfinityView or as an Addendum. If a re-interpretation or overread is required please follow defined workflow. Procedure Note Digital Media, Outside - 12/24/2024 This order has been created and auto-finalized to support the import ofoutside images. If available, original interpretation can be found on theMedia Tab in Chart Review, in Document Viewer, as an image in InfinityViewor as an Addendum. If a re-interpretation or overread is required please follow definedworkflow. us Provider Not In System IMG CT PROCEDURES Edited Result - Final IMAGING NA * US abdomen limited-Outside US Body (12/21/2024 12:05 AM CDT) Only the most recent of2 resultswithin the time period is included. Narrative IIMS - 12/23/2024 8:30 AM CDT This order has been created and auto-finalized to support the import of outside images. If available, original interpretation can be found on the Media Tab in Chart Review, in Document Viewer, as an image in InfinityView or as an Addendum. If a re-interpretation or overread is required please follow defined workflow. us Provider Not In System IMG US PROCEDURES Final R esult IIMS NA from Last 3 Months Additional Health Concerns Active Problems Noted Date Diagnosed Date Autogenerated Problem 11/16/2024 Infection Onset Date Last Indicated Protective Environment 01/28/2025 Insurance MEDICARE [facility] [place] [place] [id number] Advance Directives For more information, please contact: [phone] Documents on File Type Date Recorded Patient Show Host/Hostess Expl anation Advance Directives 12/29/2024 12:00 PM Rachel Son HCPOA/ADVOCATE/AGENT/R EPRESENTATIVE/SURROGAT E * Full Code (Latest Code Status on File) Date Activated Date Inactivated Comments 11/17/2023 5:44 PM 11/18/2023 12:40 PM Question Answer Comments Full Code: Not Discussed Due to: Patient not available * Full Code Date Activated Date Inactivated Comments 11/17/2023 10:43 AM 11/17/2023 5:44 PM Question Answer Comments Full Code: Not Discussed Due to: Patient not available Healthcare Agents on File Name Relationship Healthcare Agent Relationship Communication Rachel Mata Spouse Health Care Agent Shira Son Daughter First Alternate Health Care Agent Care Teams Travel Manager Relationship Specialty Start Date End Date Elsewhere, Pcp PCP - General Internal Medicine 09/09/23
--- OUTSIDE RECORDS SUMMARY | 2025-01-30 17:43 | XMS_ITS | Encounter Summary ---
Author Organization [facility] Address [address] [place] [address] Care Team Providers Care Manager Test Name Role Phone Elsewhere, Pcp Primary Care Provider Unavailabl e Reason for Referral * Outpatient (Routine) - Authorized Specialty Diagnoses / Procedures Referred By Meeta carlisle Referred To Contact Diagnoses Malignant Neoplasm Of Pancreas Adenocarcinoma (HCC) Lisa Davila MD [facility] Referral ID Status Reason Start Date Expiration Date V isits Requested Visits Authorized [id number] Authorized 12/23/2024 06/24/2026 1 1 Encounter Details Date Type Department Care Team (Latest Contact Info) Description 12/23/2024 Orders Only Division of Gastroenterology in [place], [place] [address] [place] [address] [facility] Malignant Neoplasm Of Pancreas Adenocarcinoma (HCC) Social History Tobacco Use Types Packs/Day Years Used Date Smoking Tobacco: Never Passive Smoke Exposure: Past Smokeless Tobacco: Never Passive Exposure Comments:Ch ildhood exposure. Alcohol Use Standard Drinks/Week Comments Not Currently 1 (1 standard drink = 0.6 oz pur e alcohol) 0-1 drink per week [facility] Utilities Answer Date Recorded In [...] your living situation today? I have a [facility] place to live 12/23/2024 Sex and Gender Information Value Date Recorded Sex Assigned at Male 09/10/2023 7:48 AM PERSONAL BANKING ASSISTANT Legal Sex Male 10:11 PM PERSONAL BANKING ASSISTANT Gender Identity Male 09/10/2023 7:48 AM PERSONAL BANKING ASSISTANT Sexual Orientation Straight 09/10/2023 7: 48 AM PERSONAL BANKING ASSISTANT documented as of this encounter Plan of Treatment Upcoming Encounters Date Type Department Care Team (Latest Contact Info) Description 02/04/2025 7:00 AM CDT Lab Department of Infusion Therapy in [place], [place] [address] [place] [phone] Skip Amaya M.D., Ph.D. [address] [place] [phone] 02/04/2025 8:20 AM CDT Office Visit Department of Oncology in [place], [place] [address] [place] [phone] Jag Frye, KASH, C.N.P., D.N.P. [address] [place] [phone] 02/04/2025 2:00 PM CDT Infusion Department of Oncology in [place], [place] [address] [place] [phone] Skip Amaya M.D., Ph.D. [address] [place] [phone] 02/08/2025 2:15 PM CDT Clinical Communication Virtual Review in [place], [place] 200 [place] [address] 02/09/2025 9:30 AM CDT Telemedicine Department of Oncology in [place] [address] [place] [address] Jesica Wasserman M.B., B.Ch. [address] [place] [phone] Cecily Nash L.I.C.S.W. [address] [place] [phone] 02/10/2025 12:00 PM CDT Lab Department of Infusion Therapy in [place], [place] [address] [place] [phone] Skip Amaya M.D., Ph.D. [address] [place] [phone] 02/10/2025 2:30 PM CDT Office Visit Department of Oncology in [place], [place] [address] [place] [phone] Rosenda Garza, KRISHNAS, P.A.-C. [address] [place] [phone] 02/11/2025 8:00 AM CDT Infusion Department of Oncology in [place], [place] [address] [place] [phone] Skip Amaya M.D., Ph.D. [address] [place] [phone] 02/23/2025 2:15 PM CDT Clinical Communication Virtual Review in [place], [place] 200 [place] [address] 02/25/2025 8:30 AM CDT Lab Department of Oncology in [place], [place] [address] [place] [phone] Skip Amaya M.D., Ph.D. [address] [place] [phone] 02/25/2025 10:40 AM CDT Office Visit Department of Oncology in [place], [place] [address] [place] [phone] Sandy Judge APRN, C.N.P., M.S. [address] [place] [phone] 02/25/2025 11:30 AM CDT Infusion Department of Oncology in [address] [phone] Skip Amaya M.D., Ph.D. [address] [place] [phone] 03/04/2025 6:00 AM CDT Lab Department of Infusion Therapy in [address] [phone] Skip Amaya M.D., Ph.D. [address] [place] [phone] 03/04/2025 8:10 AM CDT Office Visit Department of Oncology in [place], [place] [address] [place] [phone] Jie Shook P.A.-C. [address] [place] [phone] 03/04/2025 9:30 AM CDT Infusion Department of Oncology in [address] [phone] Skip Amaya M.D., Ph.D. [address] [place] [phone] 03/10/2025 2:15 PM CDT Clinical Communication Virtual Review in [place], [place] 200 [place] [address] 03/11/2025 6:00 AM CDT Lab Department of Laboratory Medicine and Pathology, [facility], in [place], [place] [address] [place] [phone] Skip Amaya M.D., Ph.D. [address] [place] [phone] 03/11/2025 7:20 AM CDT Office Visit Department of Oncology in [address] [phone] Bipin Leal P.A.-C., M.S. [address] [place] [phone] 03/11/2025 8:00 AM CDT Infusion Department of Oncology in [place], [place] [address] [place] [phone] Skip Amaya M.D., Ph.D. [address] [place] [phone] 03/24/2025 11:20 AM CDT Lab Department of Infusion Therapy in [address] [phone] Skip Amaya M.D., Ph.D. [address] [place] [phone] 03/24/2025 1:30 PM CDT Office Visit Department of Oncology in [address] [phone] Skip Amaya M.D., Ph.D. [address] [place] [phone] 03/25/2025 7:00 AM CDT Infusion Department of Oncology in [place], [place] [address] [place] [phone] Skip Amaya M.D., Ph.D. [address] [place] [phone] 03/29/2025 2:30 PM CDT Clinical Communication Virtual Review in [place], [place] 200 [place] [address] 04/01/2025 6:00 AM CDT Lab Department of Infusion Therapy in [place], [place] [address] [place] [phone] Skip Amaya M.D., Ph.D. [address] [place] [phone] 04/01/2025 8:20 AM CDT Office Visit Department of Oncology in [address] [phone] Precious Hill M.D., Ph.D. [address] [place] [phone] 04/01/2025 9:00 AM CDT Infusion Department of Oncology in [address] [phone] Skip Amaya M.D., Ph.D. [address] [place] [phone] 04/07/2025 11:00 AM CDT Lab Department of Infusion Therapy in [address] [phone] Skip Amaya M.D., Ph.D. [address] [place] [phone] 04/07/2025 1:20 PM CDT Office Visit Department of Oncology in [place], [place] [address] [place] [phone] Sandy Judge APRN, C.N.P., M.S. [address] [place] [phone] 04/08/2025 7:00 AM CDT Infusion Department of Oncology in [place], [place] [address] [place] [phone] Skip Amaya M.D., Ph.D. [address] [place] [phone] 04/21/2025 7:15 AM CDT Clinical Communication Virtual Review in [place], [place] 200 [place] [address] 04/22/2025 7:20 AM CDT Lab Department of Infusion Therapy in [place], [place] [address] [place] [phone] Skip Amaya M.D., Ph.D. [address] [place] [phone] 04/22/2025 9:20 AM CDT Office Visit Department of Oncology in [address] [phone] Sandy Judge APRN, Jordy.N.P., M.S. [address] [place] [phone] 04/22/2025 10:30 AM CDT Infusion Department of Oncology in [place], [place] [address] [place] [phone] Skip Amaya M.D., Ph.D. [address] [place] [phone] Scheduled Referrals Name Type Priority Associated Diagnoses Orde r Schedule Previsit Telehealth: Outpatient Referral Routine Malignant Neoplasm Of Pancreas Adenocarcinoma (HCC) Expected: 12/23/2024, Expires: 03/25/2026 documented as of this encounter Goals Goal Patient Goal Type Associated Problems Recent Progress Patient-Stated? Author Autogenerat ed Goal Care Plan Autogenerated Problem No Hedy Lees R.N. documented as of this encounter Visit Diagnoses Diagnosis Malignant Neoplasm Of Pancreas Adenocarcinoma (HCC) documented in this encounter Additional Health Concerns Active Problems Noted Date Diagnosed Date Autogenerated Problem 11/16/2024 Infection Onset Date Last Indicated Resolved Time Protective Environment 01/28/2025 01/28/2025 documented as of this encounter Care Teams Manager Test Relationship Specialty Start Date End Date Elsewhere, Pcp PCP - General Internal Medicine 09/09/23 documented as of this encounter
--- OUTSIDE RECORDS SUMMARY | 2025-01-30 17:44 | XMS_ITS | Encounter Summary ---
Author Organization [facility] Address [address] [place] [address] Care Team Providers Care Supervising Librarian Name Role Phone Elsewhere, Pcp Primary Care Provider Unavailabl e Encounter Details Date Type Department Care Team (Late st Contact Info) Description 01/10/2025 Clinical Communication [facility] Department of Family Medicine in [place], [place] [address] [facility] [place] [phone] Yanely Silva M.D. [address] [place] [phone] Social History Tobacco Use Types Packs/Day Years Used Date Smoking Tobacco: Never Passive Smoke Exposure: Past Smokeless Tobacco: Never Passive Exposure Comments:Ch ildhood exposure. Alcohol Use Standard Drinks/Week Comments Not Currently 1 (1 standard drink = 0.6 oz pur e alcohol) 0-1 drink per week [facility] Utilities Answer Date Recorded In the past 12 months has [employer], gas, oil, or water company threatened [...] Master's degree (e.g., MA, MS, Katelyn, MEd, REMNANT SORTER, KELLEE) 01/05/2025 Sex and Gender Information Value Date Recorded Sex Assigned at Male 09/10/2023 7:48 AM BLACKSMITH APPRENTICE Legal Sex Male 10:11 PM BLACKSMITH APPRENTICE Gender Identity Male 09/10/2023 7:48 AM BLACKSMITH APPRENTICE Sexual Orientation Straight 09/10/2023 7: 48 AM BLACKSMITH APPRENTICE documented as of this encounter Plan of Treatment Upcoming Encounters Date Type Department Care Team (Latest Contact Info) Description 02/04/2025 7:00 AM CDT Lab Department of Infusion Therapy in [place], [place] [address] [place] [phone] Skip Amaya M.D., Ph.D. [address] [place] [phone] 02/04/2025 8:20 AM CDT Office Visit Department of Oncology in [place], [place] [address] [place] [phone] Jag Frye, KASH, C.N.P., D.N.P. [address] [place] [phone] 02/04/2025 2:00 PM CDT Infusion Department of Oncology in [place], [place] [address] [place] [phone] Skip Amaya M.D., Ph.D. [address] [place] [phone] 02/08/2025 2:15 PM CDT Clinical Communication Virtual Review in [place], [place] 200 [place] [address] 02/09/2025 9:30 AM CDT Telemedicine Department of Oncology in [address] [phone] Jesica Wasserman M.B., B.Ch. [address] [place] [phone] Cecily Nash L.I.C.S.W. [address] [place] [phone] 02/10/2025 12:00 PM CDT Lab Department of Infusion Therapy in [place], [place] [address] [place] [phone] Skip Amaya M.D., Ph.D. [address] [place] [phone] 02/10/2025 2:30 PM CDT Office Visit Department of Oncology in [address] [phone] Rosenda Garza MPAS, P.A.-C. [address] [place] [phone] 02/11/2025 8:00 AM CDT Infusion Department of Oncology in [place], [place] [address] [place] [phone] Skip Amaya M.D., Ph.D. [address] [place] [phone] 02/23/2025 2:15 PM CDT Clinical Communication Virtual Review in [place], [place] 200 [place] [address] 02/25/2025 8:30 AM CDT Lab Department of Oncology in [place], [place] [address] [place] [phone] Skip Amaya M.D., Ph.D. [address] [place] [phone] 02/25/2025 10:40 AM CDT Office Visit Department of Oncology in [address] [phone] Sandy Judge, KASH, C.N.P., M.S. [address] [place] [phone] 02/25/2025 11:30 AM CDT Infusion Department of Oncology in [address] [address] Skip Amaya M.D., Ph.D. [address] [place] [phone] 03/04/2025 6:00 AM CDT Lab Department of Infusion Therapy in [address] [address] Skip Amaya M.D., Ph.D. [address] [place] [phone] 03/04/2025 8:10 AM CDT Office Visit Department of Oncology in [address] [phone] Jie Shook P.A.-C. [address] [place] [phone] 03/04/2025 9:30 AM CDT Infusion Department of Oncology in [address] [phone] Skip Amaya M.D., Ph.D. [address] [place] [phone] 03/10/2025 2:15 PM CDT Clinical Communication Virtual Review in [place], [place] 200 [place] [address] 03/11/2025 6:00 AM CDT Lab Department of Laboratory Medicine and Pathology, [facility] in [place], [place] [address] [place] [phone] Skip Amaya M.D., Ph.D. [address] [place] [phone] 03/11/2025 7:20 AM CDT Office Visit Department of Oncology in [address] [phone] Bipin Lael P.A.-C., M.S. [address] [place] [phone] 03/11/2025 8:00 AM CDT Infusion Department of Oncology in [address] [address] Skip Amaya M.D., Ph.D. [address] [place] [phone] 03/24/2025 11:20 AM CDT Lab Department of Infusion Therapy in [address] [address] Skpi Amaya M.D., Ph.D. [address] [place] [phone] 03/24/2025 1:30 PM CDT Office Visit Department of Oncology in [address] [address] Skip Amaya M.D., Ph.D. [address] [place] [phone] 03/25/2025 7:00 AM CDT Infusion Department of Oncology in [place], [place] [address] [place] [phone] Skip Amaya M.D., Ph.D. [address] [place] [phone] 03/29/2025 2:30 PM CDT Clinical Communication Virtual Review in [place], [place] 200 [place] [address] 04/01/2025 6:00 AM CDT Lab Department of Infusion Therapy in [place], [place] [address] [place] [phone] Skip Amaya M.D., Ph.D. [address] [place] [phone] 04/01/2025 8:20 AM CDT Office Visit Department of Oncology in [place], [place] [address] [place] [phone] Precious Hill M.D., Ph.D. [address] [place] [phone] 04/01/2025 9:00 AM CDT Infusion Department of Oncology in [place], [place] [address] [place] [phone] Skip Amaya M.D., Ph.D. [address] [place] [phone] 04/07/2025 11:00 AM CDT Lab Department of Infusion Therapy in [place], [place] [address] [place] [phone] Skip Amaya M.D., Ph.D. [address] [place] [phone] 04/07/2025 1:20 PM CDT Office Visit Department of Oncology in [place], [place] [address] [place] [phone] Sandy Judge APRN, C.N.P., M.S. [address] [place] [phone] 04/08/2025 7:00 AM CDT Infusion Department of Oncology in [place], [place] [address] [place] [phone] Skip Amaya M.D., Ph.D. [address] [place] [phone] 04/21/2025 7:15 AM CDT Clinical Communication Virtual Review in [place], [place] 200 [place] [address] 04/22/2025 7:20 AM CDT Lab Department of Infusion Therapy in [place], [place] [address] [place] [phone] Skip Amaya M.D., Ph.D. [address] [place] [phone] 04/22/2025 9:20 AM CDT Office Visit Department of Oncology in [place], [place] [address] [place] [phone] Sandy Judge APRN, C.N.P., M.S. [address] [place] [phone] 04/22/2025 10:30 AM CDT Infusion Department of Oncology in [place], [place] [address] [place] [phone] Skip Amaya M.D., Ph.D. [address] [place] [phone] documented as of this encounter Goals Goal Patient Goal Type Associated Problems Recent Progress Patient-Stated? Author Autogenerat ed Goal Care Plan Autogenerated Problem No Hedy Lees, RJustynNJustyn documented as of this encounter Visit Diagnoses Diagnosis Pain Cancer Associated- Primary documented in this encounter Additional Health Concerns Active Problems Noted Date Diagnosed Date Autogenerated Problem 11/16/2024 Infection Onset Date Last Indicated Resolved Time Protective Environment 01/28/2025 01/28/2025 documented as of this encounter Care Teams Supervising Librarian Relationship Specialty Start Date End Date Elsewhere, Pcp PCP - General Internal Medicine 09/09/23 documented as of this encounter
--- OUTSIDE RECORDS SUMMARY | 2025-01-30 17:44 | XMS_ITS ---
Author Organization [facility] Address [address] [place] [address] Care Team Providers Care Rivet Hole Puncher Name Role Phone Elsewhere, Pcp Primary Care Provider Unavailabl e Active Problems * This document contains information received from the source organization and may not represent a complete record from that organization. Problem Noted Date Diagnosed Date Other Cost Accounting Analyst Current Drug Therapy 01/21/2025 Malignant Neoplasm Of [...] 02/16/2017 Hypertension Essential Primary 07/19/2009 Hyperlipidemia 10/28/2007 Current Treatment and Therapy Plans [facility] PRISM-1 ( Quemliclustat (AB680) or Placebo / PACLitaxel PROTEIN BOUND / Gemcitabine )* Plan Start Date:01/20/2025 Plan Provider:Skip Amaya M.D., Ph.D. 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) Treatment Medications Current Day (Day 8 , Cycle 1 - Planned for 02/04/2025) Next Day (Day 15, Cycle 1 - Planned for 02/11/2025) gemcitabine (Gemzar)gemcitabine (Gemzar) IVPB (Gemzar)PACLitaxel protein-bound (Abraxane)PROTEIN-BOUND PACLItaxel (Abraxane)Research IRB [id number] quemliclustat or placebo (AB680)Research IRB [id number] quemliclustat or placebo IVPB (AB680) gemcitabine 2,200 mg in NaCl 0.9% 307.86 mL IVPB (Gemzar)PROTEIN-BOUND PACLItaxel (Abraxane) IVPB 300 mg 60 mL gemcitabine 2,200 mg in NaCl 0.9% 307.86 mL IVPB (Gemzar)PROTEIN-BOUND PACLItaxel (Abraxane) IVPB 300 mg 60 [facility] IRB [id number] quemliclustat or placebo 100 mg in NaCl 0.9% 100 mL IVPB (AB680) Vascular Access Patency - Implanted Vascular Access Device (IVAD) Venous Non-Valved* Plan Start Date:01/21/2025 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) Treatment Medications No medications scheduled. Past Treatment and Therapy Plans No past plan information found. Lifetime Dose Tracking * Chemical Lifetime Dose Automatic Entry Manual Entr y Radiation 5.53 mGy 5.53 mGy 0 mGy Fluoro Time 0.75 minutes 0.75 minutes 0 minutes Resolved Problems Problem Noted Date Diagnosed Date Resolved Date Tremor 11/17/2023 01/26/2025
--- OUTSIDE RECORDS SUMMARY | 2025-01-30 17:44 | XMS_ITS | Encounter Summary ---
Author Organization [facility] Address [address] [place] [address] Care Team Providers Care Drum Filler Name Role Phone Elsewhere, Pcp Primary Care Provider Unavailabl e Encounter Details Date Type Department Care Team (Late st Contact Info) Description 01/05/2025 Clinical Communication Department of Oncology in [place], [place] [address] [place] [phone] Jesica Wasserman M.B., B.Ch. [address] [place] [phone] Social History Tobacco Use Types Packs/Day Years Used Date Smoking Tobacco: Never Passive Smoke Exposure: Past Smokeless Tobacco: Never Passive Exposure Comments: ildhood exposure. Alcohol Use Standard Drinks/Week Comments Not Currently 1 (1 standard drink = 0.6 oz pur e alcohol) 0-1 drink per week [facility] Utilities Answer Date Recorded In the past 12 months has [employer] electric, gas, oil, or water company threatened [...] living situation today? I have a [facility] place to live 12/23/2024 Education Answer Date Recorded What is the highest level of school you have completed or the highest degree you have received? Master's degree (e.g., MA, MS, Katelyn, MEd, PRECIPITATE WASHER, KELLEE) 01/05/2025 Sex and Gender Information Value Date Recorded Sex Assigned at Male 09/10/2023 7:48 AM BUSINESS SUPPORT COORDINATOR Legal Sex Male 10:11 PM BUSINESS SUPPORT COORDINATOR Gender Identity Male 09/10/2023 7:48 AM BUSINESS SUPPORT COORDINATOR Sexual Orientation Straight 09/10/2023 7: 48 AM BUSINESS SUPPORT COORDINATOR documented as of this encounter Plan of Treatment Upcoming Encounters Date Type Department Care Team (Latest Contact Info) Description 02/04/2025 7:00 AM CDT Lab Department of Infusion Therapy in [place], [place] [address] [place] [phone] Skip Amaya M.D., Ph.D. [address] [place] [phone] 02/04/2025 8:20 AM CDT Office Visit Department of Oncology in [place], [place] [address] [place] [phone] Jag Frye, AUTOMATED EQUIPMENT ENGINEER TECHNICIAN, C.N.P., D.N.P. [address] [place] [phone] 02/04/2025 2:00 PM CDT Infusion Department of Oncology in [place], [place] [address] [place] [phone] Skip Amaya M.D., Ph.D. [address] [place] [phone] 02/08/2025 2:15 PM CDT Clinical Communication Virtual Review in [place], [place] 200 [place] [address] 02/09/2025 9:30 AM CDT Telemedicine Department of Oncology in [place] [id number] [place] [address] Jesica Wasserman M.B., B.Ch. [address] [place] [phone] Cecily Nash L.I.C.S.W. [address] [place] [phone] 02/10/2025 12:00 PM CDT Lab Department of Infusion Therapy in [place], [place] [address] [place] [phone] Skip Amaya M.D., Ph.D. [address] [place] [phone] 02/10/2025 2:30 PM CDT Office Visit Department of Oncology in [place], [place] [address] [place] [phone] Rosenda Garza, KRISHNAS, P.A.-C. [address] [place] [phone] 02/11/2025 8:00 AM CDT Infusion Department of Oncology in [place], [place] [address] [place] [phone] Skip Amaya M.D., Ph.D. [address] [place] [phone] 02/23/2025 2:15 PM CDT Clinical Communication Virtual Review in [place], [place] 200 [place] [address] 02/25/2025 8:30 AM CDT Lab Department of Oncology in [place], [place] [address] [place] [phone] Skip Amaya M.D., Ph.D. [address] [place] [phone] 02/25/2025 10:40 AM CDT Office Visit Department of Oncology in [place], [place] [address] [place] [phone] Sandy Judge, KASH, C.N.P., M.S. [address] [place] [phone] 02/25/2025 11:30 AM CDT Infusion Department of Oncology in [place], [place] [address] [place] [phone] Skip Amaya M.D., Ph.D. [address] [place] [phone] 03/04/2025 6:00 AM CDT Lab Department of Infusion Therapy in [place], [place] [address] [place] [phone] Skip Amaya M.D., Ph.D. [address] [place] [phone] 03/04/2025 8:10 AM CDT Office Visit Department of Oncology in [place], [place] [address] [place] [phone] Jie Shook P.A.-C. [address] [place] [phone] 03/04/2025 9:30 AM CDT Infusion Department of Oncology in [address] [phone] Skip Amaya M.D., Ph.D. [address] [place] [phone] 03/10/2025 2:15 PM CDT Clinical Communication Virtual Review in [place], [place] 200 [place] [address] 03/11/2025 6:00 AM CDT Lab Department of Laboratory Medicine and Pathology, [facility], in [place], [place] [address] [place] [phone] Skip Amaya M.D., Ph.D. [address] [place] [phone] 03/11/2025 7:20 AM CDT Office Visit Department of Oncology in [address] [phone] Bipin Leal P.A.-C., M.S. [address] [place] [phone] 03/11/2025 8:00 AM CDT Infusion Department of Oncology in [place], [place] [address] [place] [phone] Skip Amaya M.D., Ph.D. [address] [place] [phone] 03/24/2025 11:20 AM CDT Lab Department of Infusion Therapy in [address] [address] Skip Amaya M.D., Ph.D. [address] [place] [phone] 03/24/2025 1:30 PM CDT Office Visit Department of Oncology in [address] [address] Skip Amaya M.D., Ph.D. [address] [place] [phone] 03/25/2025 7:00 AM CDT Infusion Department of Oncology in [place], [place] [address] [place] [phone] Skip Amaya M.D., Ph.D. [address] [place] [phone] 03/29/2025 2:30 PM CDT Clinical Communication Virtual Review in [place], [place] 200 [place] [address] 04/01/2025 6:00 AM CDT Lab Department of Infusion Therapy in [place], [place] [address] [place] [phone] Skip Amaya M.D., Ph.D. [address] [place] [phone] 04/01/2025 8:20 AM CDT Office Visit Department of Oncology in [place], [place] [address] [place] [phone] Precious Hill M.D., Ph.D. [address] [place] [phone] 04/01/2025 9:00 AM CDT Infusion Department of Oncology in [address] [phone] Skip Amaya M.D., Ph.D. [address] [place] [phone] 04/07/2025 11:00 AM CDT Lab Department of Infusion Therapy in [address] [phone] Skip Amaya M.D., Ph.D. [address] [place] [phone] 04/07/2025 1:20 PM CDT Office Visit Department of Oncology in [place], [place] [address] [place] [phone] Sandy Judge APRN, C.N.P., M.S. [address] [place] [phone] 04/08/2025 7:00 AM CDT Infusion Department of Oncology in [place], [place] [address] [place] [phone] Skip Amaya M.D., Ph.D. [address] [place] [phone] 04/21/2025 7:15 AM CDT Clinical Communication Virtual Review in [place], [place] 200 [place] [address] 04/22/2025 7:20 AM CDT Lab Department of Infusion Therapy in [place], [place] [address] [place] [phone] Skip Amaya M.D., Ph.D. [address] [place] [phone] 04/22/2025 9:20 AM CDT Office Visit Department of Oncology in [address] [phone] Sandy Judge APRN, Jordy.N.P., M.S. [address] [place] [phone] 04/22/2025 10:30 AM CDT Infusion Department of Oncology in [address] [address] Skip Amaya M.D., Ph.D. [address] [place] [phone] documented as of this encounter Goals Goal Patient Goal Type Associated Problems Recent Progress Patient-Stated? Author Autogenerat ed Goal Care Plan Autogenerated Problem No Hedy Lees, R.N. documented as of this encounter Visit Diagnoses Not on filedocumented in this encounter Additional Health Concerns Active Problems Noted Date Diagnosed Date Autogenerated Problem 11/16/2024 Infection Onset Date Last Indicated Resolved Time Protective Environment 01/28/2025 01/28/2025 documented as of this encounter Care Teams Drum Filler Relationship Specialty Start Date End Date Elsewhere, Pcp PCP - General Internal Medicine 09/09/23 documented as of this encounter
--- OUTSIDE RECORDS SUMMARY | 2025-01-30 17:44 | XMS_ITS | Encounter Summary ---
Author Organization [facility] Address [address] [place] [address] Care Team Providers Care Digital Technician Name Role Phone Elsewhere, Pcp Primary Care Provider Unavailabl e Reason for Visit * Reason Onset Date Comments Follow-up 12/31/2024 Post procedure c all Encounter Details Date Type Department Care Team (Latest Contact Info) Description 12/31/2024 Clinical Communication Department of Radiology, [facility], in [place], [place] [address] [place] [address] Akash Hudson M.D. [address] [place] [phone] Follow-up (Post procedure call) Social History Tobacco Use Types Packs/Day Years Used Date Smoking Tobacco: Never Passive Smoke Exposure: Past Smokeless Tobacco: Never Passive Exposure Comments:Ch ildhood exposure. Alcohol Use Standard Drinks/Week Comments Not Currently 1 (1 standard drink = 0.6 oz pur e alcohol) 0-1 drink per week [facility] Utilities Answer Date Recorded In the past 12 months has [employer] electric, gas, oil, or water company threatened [...] your living situation today? I have a [facility] place to live 12/23/2024 Sex and Gender Information Value Date Recorded Sex Assigned at Male 09/10/2023 7:48 AM TILE DITCHER Legal Sex Male 10:11 PM TILE DITCHER Gender Identity Male 09/10/2023 7:48 AM TILE DITCHER Sexual Orientation Straight 09/10/2023 7: 48 AM TILE DITCHER documented as of this encounter Miscellaneous Notes * Telephone Encounter - Iman Trotter R.N. - 12/31/2024 8:23 AM CDT Information Discussed Post procedure phone call information. Biopsy or procedure performed Liver Date of procedure: 12/30/2024 Performing practitioner: Akash Hudson Emergent signs and symptoms: Pain at biopsy/procedure site is greater or equal to 6 Pt rated pain at biopsy site 9/10. Pt states that he does have moments where pain decreases down toa 2 but then has shooting pain up to a 9 at other moments. Pt is currently taking tylenol and oxycodone for pain control. Pt denies fever, denies redness, swelling or drainage from Bx site. RN instructed pt and his to proceed to the nearest emergency room to be evaluated. stated they will be reaching out to his primary provider to be seen. Non emergent signs/symptoms: Pain at biopsy/procedure site is unacceptable compared with pre-procedure pain Other Medical Problems unrelated to biopsy: Pt denies other problems unrelated to biopsy Pt Disposition: Pt instructed to proceed to the nearest ED and Pt instructed to call PCP and make an apt as soon as possible PLAN Disposition/Recommendation: recommended to report to the nearest emergency department and patient to schedule appointment and will call Information/Education: patient/caller able to teach back Caller agreeable to plan of care: yes The following references were used: nursing clinical judgement documented in this encounter Plan of Treatment Upcoming Encounters Date Type Department Care Team (Latest Contact Info) Description 02/04/2025 7:00 AM CDT Lab Department of Infusion Therapy in [place], [place] [address] [place] [phone] Skip Amaya M.D., Ph.D. [address] [place] [phone] 02/04/2025 8:20 AM CDT Office Visit Department of Oncology in [address] [address] Jag Frye, KASH, C.N.P., D.N.P. [address] [place] [phone] 02/04/2025 2:00 PM CDT Infusion Department of Oncology in [place], [place] [address] [place] [phone] Skip Amaya M.D., Ph.D. [address] [place] [phone] 02/08/2025 2:15 PM CDT Clinical Communication Virtual Review in [place], [place] 200 [place] [address] 02/09/2025 9:30 AM CDT Telemedicine Department of Oncology in [address] [phone] Jesica Wasserman M.B., B.Ch. [address] [place] [phone] Cecily Nash L.I.C.SJustynWJustyn [address] [place] [phone] 02/10/2025 12:00 PM CDT Lab Department of Infusion Therapy in [place], [place] [address] [place] [phone] Skip Amaya M.D., Ph.D. [address] [place] [phone] 02/10/2025 2:30 PM CDT Office Visit Department of Oncology in [address] [phone] Rosenda Garza MPAS, P.A.-C. [address] [place] [phone] 02/11/2025 8:00 AM CDT Infusion Department of Oncology in [address] [address] Skip Amaya M.D., Ph.D. [address] [place] [phone] 02/23/2025 2:15 PM CDT Clinical Communication Virtual Review in [address] [address] 02/25/2025 8:30 AM CDT Lab Department of Oncology in [address] [address] Skip Amaya M.D., Ph.D. [address] [place] [phone] 02/25/2025 10:40 AM CDT Office Visit Department of Oncology in [address] [phone] Sandy Judge, KASH, C.N.P., M.S. [address] [place] [phone] 02/25/2025 11:30 AM CDT Infusion Department of Oncology in [address] [place] [address] Skip Amaya M.D., Ph.D. [address] [place] [phone] 03/04/2025 6:00 AM CDT Lab Department of Infusion Therapy in [place], [place] [address] [place] [phone] Skip Amaya M.D., Ph.D. [address] [place] [phone] 03/04/2025 8:10 AM CDT Office Visit Department of Oncology in [address] [address] Jie Shook P.A.-C. [address] [place] [phone] 03/04/2025 9:30 AM CDT Infusion Department of Oncology in [place], [place] [address] [place] [phone] Skip Amaya M.D., Ph.D. [address] [place] [phone] 03/10/2025 2:15 PM CDT Clinical Communication Virtual Review in [place], [place] 200 [place] [address] 03/11/2025 6:00 AM CDT Lab Department of Laboratory Medicine and Pathology, [facility], in [place], [place] [address] [place] [phone] Skip Amaya M.D., Ph.D. [address] [place] [phone] 03/11/2025 7:20 AM CDT Office Visit Department of Oncology in [address] [address] Bipin Leal P.A.-C., M.S. [address] [place] [phone] 03/11/2025 8:00 AM CDT Infusion Department of Oncology in [place], [place] [address] [place] [phone] Skip Amaya M.D., Ph.D. [address] [place] [phone] 03/24/2025 11:20 AM CDT Lab Department of Infusion Therapy in [address] [address] Skip Amaya M.D., Ph.D. [address] [place] [phone] 03/24/2025 1:30 PM CDT Office Visit Department of Oncology in [address] [address] Skip Amaya M.D., Ph.D. [address] [place] [phone] 03/25/2025 7:00 AM CDT Infusion Department of Oncology in [address] [address] Skip Amaya M.D., Ph.D. [address] [place] [phone] 03/29/2025 2:30 PM CDT Clinical Communication Virtual Review in [place], [place] 200 [place] [address] 04/01/2025 6:00 AM CDT Lab Department of Infusion Therapy in [address] [address] Skip Amaya M.D., Ph.D. [address] [place] [phone] 04/01/2025 8:20 AM CDT Office Visit Department of Oncology in [place], [place] [address] [place] [phone] Precious Hill M.D., Ph.D. [address] [place] [phone] 04/01/2025 9:00 AM CDT Infusion Department of Oncology in [place], [place] [address] [place] [phone] Skip Amaya M.D., Ph.D. [address] [place] [phone] 04/07/2025 11:00 AM CDT Lab Department of Infusion Therapy in [address] [address] Skip Amaya M.D., Ph.D. [address] [place] [phone] 04/07/2025 1:20 PM CDT Office Visit Department of Oncology in [address] [address] Sandy Judge, KAHS, C.N.P., M.S. [address] [place] [phone] 04/08/2025 7:00 AM CDT Infusion Department of Oncology in [place], [place] [address] [place] [phone] Skip Amaya M.D., Ph.D. [address] [place] [phone] 04/21/2025 7:15 AM CDT Clinical Communication Virtual Review in [place], [place] 200 [place] [address] 04/22/2025 7:20 AM CDT Lab Department of Infusion Therapy in [address] [phone] Skip Amaya M.D., Ph.D. [address] [place] [phone] 04/22/2025 9:20 AM CDT Office Visit Department of Oncology in [address] [phone] Sandy Judge, KASH, C.N.P., M.S. [address] [place] [phone] 04/22/2025 10:30 AM CDT Infusion Department of Oncology in [address] [phone] Skip Amaya M.D., Ph.D. [address] [place] [phone] documented as of this encounter Goals Goal Patient Goal Type Associated Problems Recent Progress Patient-Stated? Author Autogenerat ed Goal Care Plan Autogenerated Problem No Hedy Lees, RJustynNJustyn documented as of this encounter Visit Diagnoses Not on filedocumented in this encounter Additional Health Concerns Active Problems Noted Date Diagnosed Date Autogenerated Problem 11/16/2024 documented as of this encounter Care Teams Digital Technician Relationship Specialty Start Date End Date Elsewhere, Pcp PCP - General Internal Medicine 09/09/23 documented as of this encounter
--- OUTSIDE RECORDS SUMMARY | 2025-01-30 17:44 | XMS_ITS | Encounter Summary ---
Author Organization [facility] Address [address] [place] [address] Care Team Providers Care Candle Molder Name Role Phone Elsewhere, Pcp Primary Care Provider Unavailabl e Encounter Details Date Type Department Care Team (Latest Contact Info) Description 01/05/2025 Results Follow-Up Division of Gastroenterology in [place], [place] [address] [place] [address] Drea Means APRN, C.N.P., D.N.P. [address] [place] [phone] Cytology Fine Needle Aspiration (including core biopsies) Social History Tobacco Use Types Packs/Day Years Used Date Smoking Tobacco: Never Passive Smoke Exposure: Past Smokeless Tobacco: Never Passive Exposure Comments:Ch ildhood exposure. Alcohol Use Standard Drinks/Week Comments Not Currently 1 (1 standard drink = 0.6 oz pur e alcohol) 0-1 drink per week [facility] Utilities Answer Date Recorded In the past 12 months has [employer] electric, gas, oil, or water company [...] your living situation today? I have a [facility] place to live 12/23/2024 Education Answer Date Recorded What is the highest level of school you have completed or the highest degree you have received? Master's degree (e.g., MA, MS, Katelyn, MEd, DRIVER SUPERVISOR, KELLEE) 01/05/2025 Sex and Gender Information Value Date Recorded Sex Assigned at Male 09/10/2023 7:48 AM BOOK JACKET COVER MACHINE OPERATOR Legal Sex Male 10:11 PM BOOK JACKET COVER MACHINE OPERATOR Gender Identity Male 09/10/2023 7:48 AM BOOK JACKET COVER MACHINE OPERATOR Sexual Orientation Straight 09/10/2023 7: 48 AM BOOK JACKET COVER MACHINE OPERATOR documented as of this encounter Plan of Treatment Upcoming Encounters Date Type Department Care Team (Latest Contact Info) Description 02/04/2025 7:00 AM CDT Lab Department of Infusion Therapy in [address] [phone] Skip Amaya M.D., Ph.D. [address] [place] [phone] 02/04/2025 8:20 AM CDT Office Visit Department of Oncology in [address] [phone] Jag Frye APRN, C.N.P., D.N.P. [address] [place] [phone] 02/04/2025 2:00 PM CDT Infusion Department of Oncology in [address] [address] Skip Amaya M.D., Ph.D. [address] [place] [phone] 02/08/2025 2:15 PM CDT Clinical Communication Virtual Review in [place], [place] 200 [place] [phone] 02/09/2025 9:30 AM CDT Telemedicine Department of Oncology in [address] [address] Jesica Wasserman M.B., B.Ch. [address] [place] [phone] Cecily Nash L.I.C.SJustynW. [address] [place] [phone] 02/10/2025 12:00 PM CDT Lab Department of Infusion Therapy in [place], [place] [address] [place] [phone] Skip Amaya M.D., Ph.D. [address] [place] [phone] 02/10/2025 2:30 PM CDT Office Visit Department of Oncology in [address] [address] Rosenda Garza MPAS, P.A.-C. [address] [place] [phone] 02/11/2025 8:00 AM CDT Infusion Department of Oncology in [place], [place] [address] [place] [phone] Skip Amaya M.D., Ph.D. [address] [place] [phone] 02/23/2025 2:15 PM CDT Clinical Communication Virtual Review in [place], [place] 200 [place] [phone] 02/25/2025 8:30 AM CDT Lab Department of Oncology in [address] [address] Skip Amaya M.D., Ph.D. [address] [place] [phone] 02/25/2025 10:40 AM CDT Office Visit Department of Oncology in [address] [phone] Sandy Judge APRN, C.N.P., M.S. [address] [place] [phone] 02/25/2025 11:30 AM CDT Infusion Department of Oncology in [address] [address] Skip Amaya M.D., Ph.D. [address] [place] [phone] 03/04/2025 6:00 AM CDT Lab Department of Infusion Therapy in [address] [phone] kSip Amaya M.D., Ph.D. [address] [place] [phone] 03/04/2025 8:10 AM CDT Office Visit Department of Oncology in [address] [address] Jie Shook P.A.-C. [address] [place] [phone] 03/04/2025 9:30 AM CDT Infusion Department of Oncology in [address] [address] Skip Amaya M.D., Ph.D. [address] [place] [phone] 03/10/2025 2:15 PM CDT Clinical Communication Virtual Review in [place], [place] 200 [place] [address] 03/11/2025 6:00 AM CDT Lab Department of Laboratory Medicine and Pathology, [facility] in [place], [place] [address] [place] [phone] Skip Amaya M.D., Ph.D. [address] [place] [phone] 03/11/2025 7:20 AM CDT Office Visit Department of Oncology in [address] [address] Bipin Leal P.A.-C., M.S. [address] [place] [phone] 03/11/2025 8:00 AM CDT Infusion Department of Oncology in [place], [place] [address] [place] [phone] Skip Amaya M.D., Ph.D. [address] [place] [phone] 03/24/2025 11:20 AM CDT Lab Department of Infusion Therapy in [address] [address] Skip Amaya M.D., Ph.D. [address] [place] [phone] 03/24/2025 1:30 PM CDT Office Visit Department of Oncology in [place], [place] [address] [place] [phone] Skip Amaya M.D., Ph.D. [address] [place] [phone] 03/25/2025 7:00 AM CDT Infusion Department of Oncology in [place], [place] [address] [place] [phone] Skip Amaya M.D., Ph.D. [address] [place] [phone] 03/29/2025 2:30 PM CDT Clinical Communication Virtual Review in [place], [place] 200 [place] [address] 04/01/2025 6:00 AM CDT Lab Department of Infusion Therapy in [place], [place] [address] [place] [phone] Skip Amaya M.D., Ph.D. [address] [place] [phone] 04/01/2025 8:20 AM CDT Office Visit Department of Oncology in [address] [address] Precious Hill M.D., Ph.D. [address] [place] [phone] 04/01/2025 9:00 AM CDT Infusion Department of Oncology in [place], [place] [address] [place] [phone] Skip Amaya M.D., Ph.D. [address] [place] [phone] 04/07/2025 11:00 AM CDT Lab Department of Infusion Therapy in [address] [address] Skip Amaya M.D., Ph.D. [address] [place] [phone] 04/07/2025 1:20 PM CDT Office Visit Department of Oncology in [place], [place] [address] [place] [phone] Sandy Judge APRN, C.NYoselin., M.S. [address] [place] [phone] 04/08/2025 7:00 AM CDT Infusion Department of Oncology in [place], [place] [address] [place] [phone] Skip Amaya M.D., Ph.D. [address] [place] [phone] 04/21/2025 7:15 AM CDT Clinical Communication Virtual Review in [place], [place] 200 [place] [address] 04/22/2025 7:20 AM CDT Lab Department of Infusion Therapy in [place], [place] [address] [place] [phone] Skip Amaya M.D., Ph.D. [address] [place] [phone] 04/22/2025 9:20 AM CDT Office Visit Department of Oncology in [address] [phone] Sandy Judge APRN, C.NYoselin., M.S. [address] [place] [phone] 04/22/2025 10:30 AM CDT Infusion Department of Oncology in [address] [address] Skip Amaya M.D., Ph.D. [address] [place] [phone] documented as of this encounter Goals Goal [...] documented as of this encounter Care Teams Candle Molder Relationship Specialty Start Date End Date Elsewhere, Pcp PCP - General Internal Medicine 09/09/23 documented as of this encounter
--- OUTSIDE RECORDS SUMMARY | 2025-01-30 17:44 | XMS_ITS | Encounter Summary ---
Author Organization [facility] Address [address] [place] [address] Care Team Providers Care Coldfusion Name Role Phone Elsewhere, Pcp Primary Care Provider Unavailabl e Encounter Details Date Type Department Care Team (Late st Contact Info) Description 12/30/2024 Abstract [place], [place] [address] [place] [phone] Provider, Historical Social History Tobacco Use Types Packs/Day Years Used Date Smoking Tobacco: Never Passive Smoke Exposure: Past Smokeless Tobacco: Never Passive Exposure Comments:Ch ildhood exposure. Alcohol Use Standard Drinks/Week Comments Not Currently 1 (1 standard drink = 0.6 oz pur e alcohol) 0-1 drink per week [facility] Utilities Answer Date Recorded In the past 12 months has [employer], gas, oil, or water [employer] threatened to shut off services in your [...] your living situation today? [facility] 12/23/2024 Sex and Gender Information Value Date Recorded Sex Assigned at Male 09/10/2023 7:48 AM PORCELAIN FINISHER Legal Sex Male 10:11 PM PORCELAIN FINISHER Gender Identity Male 09/10/2023 7:48 AM PORCELAIN FINISHER Sexual Orientation Straight 09/10/2023 7: 48 AM PORCELAIN FINISHER documented as of this encounter Plan of Treatment Upcoming Encounters Date Type Department Care Team (Latest Contact Info) Description 02/04/2025 7:00 AM CDT Lab Department of Infusion Therapy in [place], [place] [address] [place] [phone] Skip Amaya M.D., Ph.D. [address] [place] [phone] 02/04/2025 8:20 AM CDT Office Visit Department of Oncology in [place], [place] [address] [place] [phone] Jag Frye, KASH, C.N.P., D.N.P. [address] [place] [phone] 02/04/2025 2:00 PM CDT Infusion Department of Oncology in [address] [address] Skip Amaya M.D., Ph.D. [address] [place] [phone] 02/08/2025 2:15 PM CDT Clinical Communication Virtual Review in [place], [place] 200 [place] [address] 02/09/2025 9:30 AM CDT Telemedicine Department of Oncology in [address] [address] Jesica Wasserman M.B., B.Ch. [address] [place] [phone] Cecily Nash L.I.C.SJustynW. [address] [place] [address] 02/10/2025 12:00 PM CDT Lab Department of Infusion Therapy in [address] [address] Skip Amaya M.D., Ph.D. [address] [place] [phone] 02/10/2025 2:30 PM CDT Office Visit Department of Oncology in [address] [address] Rosenda Garza MPAS, P.A.-C. [address] [place] [phone] 02/11/2025 8:00 AM CDT Infusion Department of Oncology in [address] [address] Skip Amaya M.D., Ph.D. [address] [place] [address] 02/23/2025 2:15 PM CDT Clinical Communication Virtual Review in [place], [place] 200 [place] [address] 02/25/2025 8:30 AM CDT Lab Department of Oncology in [address] [address] Skip Amaya M.D., Ph.D. [address] [place] [phone] 02/25/2025 10:40 AM CDT Office Visit Department of Oncology in [address] [address] Sandy Judge APRN, C.N.P., M.S. [address] [place] [address] 02/25/2025 11:30 AM CDT Infusion Department of Oncology in [place], [place] [address] [place] [address] Skip Amaya M.D., Ph.D. [address] [place] [phone] 03/04/2025 6:00 AM CDT Lab Department of Infusion Therapy in [place], [place] [address] [place] [phone] Skip Amaya M.D., Ph.D. [address] [place] [address] 03/04/2025 8:10 AM CDT Office Visit Department of Oncology in [place], [place] [address] [place] [phone] Jie Shook P.A.-C. [address] [place] [phone] 03/04/2025 9:30 AM CDT Infusion Department of Oncology in [place], [place] [address] [place] [address] Skip Amaya M.D., Ph.D. [address] [place] [address] 03/10/2025 2:15 PM CDT Clinical Communication Virtual Review in [place], [place] 200 [place] [address] 03/11/2025 6:00 AM CDT Lab Department of Laboratory Medicine and Pathology, [facility], in [place], [place] [address] [place] [address] Skip Amaya M.D., Ph.D. [address] [place] [address] 03/11/2025 7:20 AM CDT Office Visit Department of Oncology in [place], [place] [address] [place] [phone] Bipin Leal P.A.-C., M.S. [address] [place] [phone] 03/11/2025 8:00 AM CDT Infusion Department of Oncology in [place], [place] [address] [place] [address] Skip Amaya M.D., Ph.D. [address] [place] [address] 03/24/2025 11:20 AM CDT Lab Department of Infusion Therapy in [address] [address] Skip Amaya M.D., Ph.D. [address] [place] [phone] 03/24/2025 1:30 PM CDT Office Visit Department of Oncology in [place], [place] [address] [place] [address] Skip Amaya M.D., Ph.D. [address] [place] [phone] 03/25/2025 7:00 AM CDT Infusion Department of Oncology in [place], [place] [address] [place] [address] Skip Amaya M.D., Ph.D. [address] [place] [phone] 03/29/2025 2:30 PM CDT Clinical Communication Virtual Review in [place], [place] 200 [place] [address] 04/01/2025 6:00 AM CDT Lab Department of Infusion Therapy in [place], [place] [address] [place] [address] Skip Amaya M.D., Ph.D. [address] [place] [phone] 04/01/2025 8:20 AM CDT Office Visit Department of Oncology in [place], [place] [address] [place] [phone] Precious Hill M.D., Ph.D. [address] [place] [phone] 04/01/2025 9:00 AM CDT Infusion Department of Oncology in [place], [place] [address] [place] [address] Skip Amaya M.D., Ph.D. [address] [place] [phone] 04/07/2025 11:00 AM CDT Lab Department of Infusion Therapy in [address] [address] Skip Amaya M.D., Ph.D. [address] [place] [address] 04/07/2025 1:20 PM CDT Office Visit Department of Oncology in [place], [place] [address] [place] [address] Sandy Judge APRN, C.N.P., M.S. [address] [place] [phone] 04/08/2025 7:00 AM CDT Infusion Department of Oncology in [place], [place] [address] [place] [phone] Skip Amaya M.D., Ph.D. [address] [place] [phone] 04/21/2025 7:15 AM CDT Clinical Communication Virtual Review in [place], [place] 200 [place] [address] 04/22/2025 7:20 AM CDT Lab Department of Infusion Therapy in [address] [address] Skip Amaya M.D., Ph.D. [address] [place] [phone] 04/22/2025 9:20 AM CDT Office Visit Department of Oncology in [address] [address] Sandy Judge, KASH, C.N.P., M.S. [address] [place] [address] 04/22/2025 10:30 AM CDT Infusion Department of Oncology in [address] [address] Skip Amaya M.D., Ph.D. [address] [place] [phone] documented as of this encounter Goals Goal Patient Goal Type Associated Problems Recent Progress Patient-Stated? Author Autogenerat ed Goal Care Plan Autogenerated Problem No Hedy Lees R.N. documented as of this encounter Visit Diagnoses Not on filedocumented in this encounter Additional Health Concerns Active Problems Noted Date Diagnosed Date Autogenerated Problem 11/16/2024 documented as of this encounter Care Teams Coldfusion Relationship Specialty Start Date End Date Elsewhere, Pcp PCP - General Internal Medicine 09/09/23 documented as of this encounter
--- OUTSIDE RECORDS SUMMARY | 2025-01-30 17:44 | XMS_ITS | Encounter Summary ---
Author Organization [facility] Address [address] [place] [address] Care Team Providers Care Shake Sawyer Name Role Phone Elsewhere, Pcp Primary Care Provider Unavailabl e Reason for Visit * Reason Onset Date Comments Pancreas 12/22/2024 Pre-Visit Angie saldana Encounter Details Date Type Department Care Team (Latest Contact Info) Description 12/22/2024 Clinical Communication Division of Gastroenterology in [place], [place] [address] [place] [address] Prescheduling, Provider Pancreas (Pre-Visit Scheduling) Social History Tobacco Use Types Packs/Day Years Used Date Smoking Tobacco: Never Passive Smoke Exposure: Past Smokeless Tobacco: Never Passive Exposure Comments:Ch ildhood exposure. 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 [address] [place] [phone] 02/04/2025 8:20 AM CDT Office Visit Department of Oncology in [address] [address] Jag Frye, KASH, C.N.P., D.N.P. [address] [place] [address] 02/04/2025 2:00 PM CDT Infusion Department of Oncology in [place], [place] [address] [place] [phone] Skip Amaya M.D., Ph.D. [address] [place] [phone] 02/08/2025 2:15 PM CDT Clinical Communication Virtual Review in [address] [address] 02/09/2025 9:30 AM CDT Telemedicine Department of Oncology in [place], [place] [address] [place] [address] Jesica Wasserman M.B., B.. [address] [place] [address] Cecily Nash L.I.C.S.W. [address] [place] [address] 02/10/2025 12:00 PM CDT Lab Department of Infusion Therapy in [address] [address] Skip Amaya M.D., Ph.D. [address] [place] [phone] 02/10/2025 2:30 PM CDT Office Visit Department of Oncology in [address] [address] Rosenda Garza MPAS, P.A.-C. [address] [place] [phone] 02/11/2025 8:00 AM CDT Infusion Department of Oncology in [address] [address] Skip Amaya M.D., Ph.D. [address] [place] [phone] 02/23/2025 2:15 PM CDT Clinical Communication Virtual Review in [address] [address] 02/25/2025 8:30 AM CDT Lab Department of Oncology in [address] [address] Skip Amaya M.D., Ph.D. [address] [place] [phone] 02/25/2025 10:40 AM CDT Office Visit Department of Oncology in [place], [place] [address] [place] [phone] Sandy Judge APRN, C.NYoselin., M.S. [address] [place] [phone] 02/25/2025 11:30 AM CDT Infusion Department of Oncology in [place], [place] [address] [place] [phone] Skip Amaya M.D., Ph.D. [address] [place] [address] 03/04/2025 6:00 AM CDT Lab Department of Infusion Therapy in [place], [place] [address] [place] [phone] Skip Amaya M.D., Ph.D. [address] [place] [phone] 03/04/2025 8:10 AM CDT Office Visit Department of Oncology in [address] [address] Jie Shook P.A.-C. [address] [place] [phone] 03/04/2025 9:30 AM CDT Infusion Department of Oncology in [address] [address] Skip Amaya M.D., Ph.D. [address] [place] [phone] 03/10/2025 2:15 PM CDT Clinical Communication Virtual Review in [place], [place] 200 [place] [address] 03/11/2025 6:00 AM CDT Lab Department of Laboratory Medicine and Pathology, [facility], in [place], [place] [address] [place] [phone] Skip Amaya M.D., Ph.D. [address] [place] [address] 03/11/2025 7:20 AM CDT Office Visit Department of Oncology in [place], [place] [address] [place] [phone] Bipin Leal P.A.-C., M.S. [address] [place] [address] 03/11/2025 8:00 AM CDT Infusion Department of Oncology in [address] [address] Skip Amaya M.D., Ph.D. [address] [place] [phone] 03/24/2025 11:20 AM CDT Lab Department of Infusion Therapy in [address] [address] Skip Amaya M.D., Ph.D. [address] [place] [phone] 03/24/2025 1:30 PM CDT Office Visit Department of Oncology in [address] [address] Skip Amaya M.D., Ph.D. [address] [place] [phone] 03/25/2025 7:00 AM CDT Infusion Department of Oncology in [address] [address] Skip Amaya M.D., Ph.D. [address] [place] [phone] 03/29/2025 2:30 PM CDT Clinical Communication Virtual Review in [place], [place] 200 [place] [address] 04/01/2025 6:00 AM CDT Lab Department of Infusion Therapy in [place], [place] [address] [place] [phone] Skip Amaya M.D., Ph.D. [address] [place] [phone] 04/01/2025 8:20 AM CDT Office Visit Department of Oncology in [address] [address] Precious Hill M.D., Ph.D. [address] [place] [phone] 04/01/2025 9:00 AM CDT Infusion Department of Oncology in [address] [address] Skip Amaya M.D., Ph.D. [address] [place] [phone] 04/07/2025 11:00 AM CDT Lab Department of Infusion Therapy in [address] [address] Skip Amaya M.D., Ph.D. [address] [place] [phone] 04/07/2025 1:20 PM CDT Office Visit Department of Oncology in [address] [address] Sandy Judge, KASH, C.N.P., M.S. [address] [place] [address] 04/08/2025 7:00 AM CDT Infusion Department of Oncology in [place], [place] [address] [place] [phone] Skip Amaya M.D., Ph.D. [address] [place] [phone] 04/21/2025 7:15 AM CDT Clinical Communication Virtual Review in [place], [place] 200 [place] [address] 04/22/2025 7:20 AM CDT Lab Department of Infusion Therapy in [place], [place] [address] [place] [phone] Skip Amaya M.D., Ph.D. [address] [place] [phone] 04/22/2025 9:20 AM CDT Office Visit Department of Oncology in [place], [place] [address] [place] [phone] Sandy Judge, KASH, C.N.P., M.S. [address] [place] [phone] 04/22/2025 10:30 AM CDT Infusion Department of Oncology in [place], [place] [address] [place] [phone] Skip Amaya M.D., Ph.D. [address] [place] [phone] documented as of this encounter Goals Goal Patient Goal Type Associated Problems Recent Progress Patient-Stated? Author Autogenerat ed Goal Care Plan Autogenerated Problem Hedy Frankel R.N. documented as of this encounter Visit Diagnoses Not on filedocumented in this encounter Additional Health Concerns Active Problems Noted Date Diagnosed Date Autogenerated Problem 11/16/2024 documented as of this encounter Care Teams Shake Sawyer Relationship Specialty Start Date End Date Elsewhere, Pcp PCP - General Internal Medicine 09/09/23 documented as of this encounter
--- OUTSIDE RECORDS SUMMARY | 2025-01-30 17:44 | XMS_ITS | Encounter Summary ---
Author Organization [facility] Address [address] [place] [address] Care Team Providers Care Storage Specialist Name Role Phone Elsewhere, Pcp Primary Care Provider Unavailabl e Encounter Details Date Type Department Care Team (Late st Contact Info) Description 01/10/2025 Clinical Communication Department of Oncology in [place], [place] [address] [place] [address] [phone] Jesica Wasserman M.B., B.Ch. [address] [place] [phone] Social History Tobacco Use Types Packs/Day Years Used Date Smoking Tobacco: Never Passive Smoke Exposure: Past Smokeless Tobacco: Never Passive Exposure Comments: ildhood exposure. Alcohol Use Standard Drinks/Week Comments Not Currently 1 (1 standard drink = 0.6 oz pur e alcohol) 0-1 drink per week [facility] Utilities Answer Date Recorded In the past 12 months has [employer] electric, gas, oil, or water company threatened [...] your living situation today? I have a [facility] place to live 12/23/2024 Education Answer Date Recorded What is the highest level of school you have completed or the highest degree you have received? Master's degree (e.g., MA, MS, Katelyn, MEd, DISPLAY FABRICATION SUPERVISOR, KELLEE) 01/05/2025 Sex and Gender Information Value Date Recorded Sex Assigned at Male 09/10/2023 7:48 AM SKIP PITMAN Legal Sex Male 10:11 PM SKIP PITMAN Gender Identity Male 09/10/2023 7:48 AM SKIP PITMAN Sexual Orientation Straight 09/10/2023 7: 48 AM SKIP PITMAN documented as of this encounter Miscellaneous Notes * Telephone Encounter - Stephanie Jones R.N. - 01/10/2025 11:42 AM CDT This patient is scheduled for a port placement on 01/17/2025. Please address blood thinner holding with patient. Please use the following link for blood thinning management recommendations for radiology procedures. Radiology Anticoagulation Guideline - [facility] ([email or web address]) If the patient can safely hold the anticoagulation, please contact the patient regarding directionson holding their blood thinning medication for their upcoming procedure. If the patient cannot safely hold the anticoagulation, please contact [facility]IR to determine next steps. Electronically signed by: Stephanie Jones R.N. 01/10/25 11:43 AM CDT documented in this encounter Plan of Treatment Upcoming Encounters Date Type Department Care Team (Latest Contact Info) Description 02/04/2025 7:00 AM CDT Lab Department of Infusion Therapy in [place], [place] 200 [place] [phone] Skip Amaya M.D., Ph.D. [address] [place] [address] [phone] 02/04/2025 8:20 AM CDT Office Visit Department of Oncology in [place], [place] [address] [place] [address] [phone] Jag Frye, SHIP FASTENER, C.N.P., D.N.P. [address] [place] [address] [phone] 02/04/2025 2:00 PM CDT Infusion Department of Oncology in [place], [place] [address] [place] [phone] Skip Amaya M.D., Ph.D. [address] [place] [address] [phone] 02/08/2025 2:15 PM CDT Clinical Communication Virtual Review in [place], [place] 200 [place] [phone] 02/09/2025 9:30 AM CDT Telemedicine Department of Oncology in [address] [phone] Jesica Wasserman M.B., B.Ch. [address] [place] [phone] Cecily Nash, WeroI.C.S.W. [address] [place] [phone] 02/10/2025 12:00 PM CDT Lab Department of Infusion Therapy in [place], [place] [address] [place] [address] [phone] Skip Amaya M.D., Ph.D. [address] [place] [address] [phone] 02/10/2025 2:30 PM CDT Office Visit Department of Oncology in [place], [place] [address] [place] [phone] Rosenda Garza MPAS, P.A.-C. [address] [place] [phone] 02/11/2025 8:00 AM CDT Infusion Department of Oncology in [address] [phone] Skip Amaya M.D., Ph.D. [address] [place] [phone] 02/23/2025 2:15 PM CDT Clinical Communication Virtual Review in [address] [phone] 02/25/2025 8:30 AM CDT Lab Department of Oncology in [address] [phone] Skip Amaya M.D., Ph.D. [address] [place] [phone] 02/25/2025 10:40 AM CDT Office Visit Department of Oncology in [address] [phone] Sandy Judge APRN, C.N.P., M.S. [address] [place] [phone] 02/25/2025 11:30 AM CDT Infusion Department of Oncology in [address] [phone] Skip Amaya M.D., Ph.D. [address] [place] [phone] 03/04/2025 6:00 AM CDT Lab Department of Infusion Therapy in [address] [phone] Skip Amaya M.D., Ph.D. [address] [place] [phone] 03/04/2025 8:10 AM CDT Office Visit Department of Oncology in [place], [place] [address] [place] [phone] Jie Shook P.A.-C. [address] [place] [phone] 03/04/2025 9:30 AM CDT Infusion Department of Oncology in [place], [place] [address] [place] [phone] Skip Amaya M.D., Ph.D. [address] [place] [phone] 03/10/2025 2:15 PM CDT Clinical Communication Virtual Review in [place], [place] 200 [place] [address] 03/11/2025 6:00 AM CDT Lab Department of Laboratory Medicine and Pathology, [facility] in [address] [phone] Skip Amaya M.D., Ph.D. [address] [place] [phone] 03/11/2025 7:20 AM CDT Office Visit Department of Oncology in [place], [place] [address] [place] [phone] Bipin Leal P.A.-C., M.S. [address] [place] [phone] 03/11/2025 8:00 AM CDT Infusion Department of Oncology in [place], [place] [address] [place] [phone] Skip Amaya M.D., Ph.D. [address] [place] [phone] 03/24/2025 11:20 AM CDT Lab Department of Infusion Therapy in [place], [place] [address] [place] [phone] Skip Amaya M.D., Ph.D. [address] [place] [phone] 03/24/2025 1:30 PM CDT Office Visit Department of Oncology in [address] [phone] Skip Amaya M.D., Ph.D. [address] [place] [phone] 03/25/2025 7:00 AM CDT Infusion Department of Oncology in [place], [place] [address] [place] [phone] Skip Amaya M.D., Ph.D. [address] [place] [phone] 03/29/2025 2:30 PM CDT Clinical Communication Virtual Review in [address] [phone] 04/01/2025 6:00 AM CDT Lab Department of Infusion Therapy in [address] [phone] Skip Amaya M.D., Ph.D. [address] [place] [phone] 04/01/2025 8:20 AM CDT Office Visit Department of Oncology in [address] [phone] Precious Hill M.D., Ph.D. [address] [place] [phone] 04/01/2025 9:00 AM CDT Infusion Department of Oncology in [place], [place] [address] [place] [phone] Skip Amaya M.D., Ph.D. [address] [place] [phone] 04/07/2025 11:00 AM CDT Lab Department of Infusion Therapy in [place], [place] [address] [place] [phone] Skip Amaya M.D., Ph.D. [address] [place] [phone] 04/07/2025 1:20 PM CDT Office Visit Department of Oncology in [place], [place] [address] [place] [phone] Sandy Judge APRN, C.N.P., M.S. [address] [place] [phone] 04/08/2025 7:00 AM CDT Infusion Department of Oncology in [place], [place] [address] [place] [phone] Skip Amaya M.D., Ph.D. [address] [place] [phone] 04/21/2025 7:15 AM CDT Clinical Communication Virtual Review in [place], [place] 200 [place] [address] 04/22/2025 7:20 AM CDT Lab Department of Infusion Therapy in [place], [place] [address] [place] [phone] Skip Amaya M.D., Ph.D. [address] [place] [phone] 04/22/2025 9:20 AM CDT Office Visit Department of Oncology in [place], [place] [address] [place] [phone] Sandy Judge APRN, C.N.P., M.S. [address] [place] [phone] 04/22/2025 10:30 AM CDT Infusion Department of Oncology in [place], [place] [address] [place] [phone] Skip Amaya M.D., Ph.D. [address] [place] [phone] documented as of this encounter Goals Goal [...] documented as of this encounter Care Teams Storage Specialist Relationship Specialty Start Date End Date Elsewhere, Pcp PCP - General Internal Medicine 09/09/23 documented as of this encounter
--- OUTSIDE RECORDS SUMMARY | 2025-01-30 17:44 | XMS_ITS | Encounter Summary ---
Author Organization [facility] Address [address] [place] [address] Care Team Providers Care Plastics Fitter Name Role Phone Elsewhere, Pcp Primary Care Provider Unavailabl e Reason for Visit * Reason Onset Date Comments genetic testing 12/29/2024 Encounter Details Date Type Department Care Team (Late st Contact Info) Description 12/29/2024 Clinical Communication Department of Medical Genetics in [place], [place] [address] [place] [phone] Danay Diaz M.S., [facility] [address] [place] [phone] genetic testing Social History Tobacco Use Types Packs/Day Years Used Date Smoking Tobacco: Never Passive Smoke Exposure: Past Smokeless Tobacco: Never Passive Exposure Comments:Ch ildhood exposure. Alcohol Use Standard Drinks/Week Comments Not Currently 1 (1 standard drink = 0.6 oz pur e alcohol) 0-1 drink per week [facility] Utilities Answer Date Recorded In the past 12 months has [employer] electric, gas, oil, or water company threatened [...] living situation today? I have a [facility] place to live 12/23/2024 Sex and Gender Information Value Date Recorded Sex Assigned at Male 09/10/2023 7:48 AM PLATINUM SMITH Legal Sex Male 10:11 PM PLATINUM SMITH Gender Identity Male 09/10/2023 7:48 AM PLATINUM SMITH Sexual Orientation Straight 09/10/2023 7: 48 AM PLATINUM SMITH documented as of this encounter Plan of Treatment Upcoming Encounters Date Type Department Care Team (Latest Contact Info) Description 02/04/2025 7:00 AM CDT Lab Department of Infusion Therapy in [place], [place] [address] [place] [phone] Skip Amaya M.D., Ph.D. [address] [place] [phone] 02/04/2025 8:20 AM CDT Office Visit Department of Oncology in [place], [place] 200 [place] [address] Jag Frye, AUDIOLOGIST, C.N.P., D.N.P. [address] [place] [phone] 02/04/2025 2:00 PM CDT Infusion Department of Oncology in [place], [place] [address] [place] [phone] Skip Amaya M.D., Ph.D. [address] [place] [phone] 02/08/2025 2:15 PM CDT Clinical Communication Virtual Review in [place], [place] 200 [place] [address] 02/09/2025 9:30 AM CDT Telemedicine Department of Oncology in [address] [phone] Jesica Wassermna M.B., B.Ch. [address] [place] [phone] Cecily Nash L.I.C.S.W. [address] [place] [phone] 02/10/2025 12:00 PM CDT Lab Department of Infusion Therapy in [place], [place] [address] [place] [phone] Skip Amaya M.D., Ph.D. [address] [place] [phone] 02/10/2025 2:30 PM CDT Office Visit Department of Oncology in [address] [phone] Rosenda Garza, [facility], P.A.-C. [address] [place] [phone] 02/11/2025 8:00 AM CDT Infusion Department of Oncology in [address] [phone] Skip Amaya M.D., Ph.D. [address] [place] [phone] 02/23/2025 2:15 PM CDT Clinical Communication Virtual Review in [place], [place] 200 [place] [address] 02/25/2025 8:30 AM CDT Lab Department of Oncology in [place], [place] [address] [place] [phone] Skip Amaya M.D., Ph.D. [address] [place] [phone] 02/25/2025 10:40 AM CDT Office Visit Department of Oncology in [place], [place] [address] [place] [phone] Sandy Judge, KASH, C.N.P., M.S. [address] [place] [phone] 02/25/2025 11:30 AM CDT Infusion Department of Oncology in [place], [place] [address] [place] [phone] Skip Amaya M.D., Ph.D. [address] [place] [phone] 03/04/2025 6:00 AM CDT Lab Department of Infusion Therapy in [place], [place] [address] [place] [phone] Skip Amaya M.D., Ph.D. [address] [place] [phone] 03/04/2025 8:10 AM CDT Office Visit Department of Oncology in [place], [place] [address] [place] [phone] Jie Shook P.A.-C. [address] [place] [phone] 03/04/2025 9:30 AM CDT Infusion Department of Oncology in [place], [place] [address] [place] [phone] Skip Amaya M.D., Ph.D. [address] [place] [phone] 03/10/2025 2:15 PM CDT Clinical Communication Virtual Review in [place], [place] 200 [place] [address] 03/11/2025 6:00 AM CDT Lab Department of Laboratory Medicine and Pathology, [facility], in [place], [place] [address] [place] [phone] Skip Amaya M.D., Ph.D. [address] [place] [phone] 03/11/2025 7:20 AM CDT Office Visit Department of Oncology in [address] [phone] Bipin Leal P.A.-C., M.S. [address] [place] [phone] 03/11/2025 8:00 AM CDT Infusion Department of Oncology in [address] [phone] Skip Amaya M.D., Ph.D. [address] [place] [phone] 03/24/2025 11:20 AM CDT Lab Department of Infusion Therapy in [address] [phone] Skip Amaya M.D., Ph.D. [address] [place] [phone] 03/24/2025 1:30 PM CDT Office Visit Department of Oncology in [address] [phone] Skip Amaya M.D., Ph.D. [address] [place] [phone] 03/25/2025 7:00 AM CDT Infusion Department of Oncology in [place], [place] [address] [place] [phone] Skip Amaya M.D., Ph.D. [address] [place] [phone] 03/29/2025 2:30 PM CDT Clinical Communication Virtual Review in [place], [place] 200 [place] [address] 04/01/2025 6:00 AM CDT Lab Department of Infusion Therapy in [place], [place] [address] [place] [phone] Skip Amaya M.D., Ph.D. [address] [place] [phone] 04/01/2025 8:20 AM CDT Office Visit Department of Oncology in [place], [place] [address] [place] [phone] Precious Hill M.D., Ph.D. [address] [place] [phone] 04/01/2025 9:00 AM CDT Infusion Department of Oncology in [address] [phone] Skip Amaya M.D., Ph.D. [address] [place] [phone] 04/07/2025 11:00 AM CDT Lab Department of Infusion Therapy in [address] [address] Skip Amaya M.D., Ph.D. [address] [place] [phone] 04/07/2025 1:20 PM CDT Office Visit Department of Oncology in [place], [place] [address] [place] [phone] Sandy Judge APRN, Jordy.N.P., M.S. [address] [place] [phone] 04/08/2025 7:00 AM CDT Infusion Department of Oncology in [place], [place] [address] [place] [phone] Skip Amaya M.D., Ph.D. [address] [place] [phone] 04/21/2025 7:15 AM CDT Clinical Communication Virtual Review in [place], [place] 200 [place] [address] 04/22/2025 7:20 AM CDT Lab Department of Infusion Therapy in [place], [place] [address] [place] [phone] Skip Amaya M.D., Ph.D. [address] [place] [phone] 04/22/2025 9:20 AM CDT Office Visit Department of Oncology in [place], [place] [address] [place] [phone] Sandy Judge APRN, C.N.Bhavin., M.S. [address] [place] [phone] 04/22/2025 10:30 AM CDT Infusion Department of Oncology in [place], [place] [address] [place] [phone] Skip Amaya M.D., Ph.D. [address] [place] [phone] documented as of this encounter Goals Goal [...] documented as of this encounter Care Teams Plastics Fitter Relationship Specialty Start Date End Date Elsewhere, Pcp PCP - General Internal Medicine 09/09/23 documented as of this encounter
--- OUTSIDE RECORDS SUMMARY | 2025-01-30 17:44 | XMS_ITS | Encounter Summary ---
Author Organization [facility] Address [address] [place] [address] Care Team Providers Care Construction Controller Name Role Phone Elsewhere, Pcp Primary Care Provider Unavailabl e Reason for Visit * Reason Onset Date Comments Previsit Preparation 12/22/2024 Hepatobiliary 12/22/2024 [facility] - Outside Materials 12/22/2024 Encounter Details Date Type Department Care Team (Latest Contact Info) Description 12/22/2024 Clinical Communication Division of Gastroenterology in [place], [place] [address] [place] [address] Prescheduling, Provider Previsit Preparation; Hepatobiliary; [facility] - Outside Materials Social History Tobacco Use Types Packs/Day Years Used Date Smoking Tobacco: Never Passive Smoke Exposure: Past Smokeless Tobacco: Never Passive Exposure Comments:Ch ildhood exposure. Alcohol Use Standard Drinks/Week Comments Not Currently 1 (1 standard drink = 0.6 oz pur e alcohol) 0-1 drink per week [facility] Utilities Answer Date Recorded In the past 12 months has [employer] electric, gas, oil, or water company threatened [...] your living situation today? I have a [facility] place to live 12/23/2024 Sex and Gender Information Value Date Recorded Sex Assigned at Male 09/10/2023 7:48 AM UTILITY ENGINEER Legal Sex Male 10:11 PM UTILITY ENGINEER Gender Identity Male 09/10/2023 7:48 AM UTILITY ENGINEER Sexual Orientation Straight 09/10/2023 7: 48 AM UTILITY ENGINEER documented as of this encounter Plan of Treatment Upcoming Encounters Date Type Department Care Team (Latest Contact Info) Description 02/04/2025 7:00 AM CDT Lab Department of Infusion Therapy in [address] [address] Skip Amaya M.D., Ph.D. [address] [place] [phone] 02/04/2025 8:20 AM CDT Office Visit Department of Oncology in [address] [phone] Jag Frye, KASH, C.N.P., D.N.P. [address] [place] [phone] 02/04/2025 2:00 PM CDT Infusion Department of Oncology in [address] [address] Skip Amaya M.D., Ph.D. [address] [place] [phone] 02/08/2025 2:15 PM CDT Clinical Communication Virtual Review in [address] [address] 02/09/2025 9:30 AM CDT Telemedicine Department of Oncology in [place], [place] [address] [place] [address] Jesica Wasserman M.B., B.. [address] [place] [address] Cecily Nash L.I.C.S.W. [address] [place] [address] 02/10/2025 12:00 PM CDT Lab Department of Infusion Therapy in [place], [place] [address] [place] [phone] Skip Amaya M.D., Ph.D. [address] [place] [phone] 02/10/2025 2:30 PM CDT Office Visit Department of Oncology in [place], [place] [address] [place] [phone] Rosenda Garza MPAS, P.A.-C. [address] [place] [phone] 02/11/2025 8:00 AM CDT Infusion Department of Oncology in [place], [place] [address] [place] [phone] Skip Amaya M.D., Ph.D. [address] [place] [phone] 02/23/2025 2:15 PM CDT Clinical Communication Virtual Review in [place], [place] [address] [place] [address] 02/25/2025 8:30 AM CDT Lab Department of Oncology in [place], [place] [address] [place] [phone] Skip Amaya M.D., Ph.D. [address] [place] [phone] 02/25/2025 10:40 AM CDT Office Visit Department of Oncology in [place], [place] [address] [place] [phone] Sandy Judge APRN, C.N.P., M.S. [address] [place] [phone] 02/25/2025 11:30 AM CDT Infusion Department of Oncology in [place], [place] [address] [place] [phone] Skip Amaya M.D., Ph.D. [address] [place] [phone] 03/04/2025 6:00 AM CDT Lab Department of Infusion Therapy in [address] [address] Skip Amaya M.D., Ph.D. [address] [place] [phone] 03/04/2025 8:10 AM CDT Office Visit Department of Oncology in [address] [address] Jie Shook P.A.-C. [address] [place] [phone] 03/04/2025 9:30 AM CDT Infusion Department of Oncology in [address] [address] Skip Amaya M.D., Ph.D. [address] [place] [phone] 03/10/2025 2:15 PM CDT Clinical Communication Virtual Review in [place], [place] [address] [place] [address] 03/11/2025 6:00 AM CDT Lab Department of Laboratory Medicine and Pathology, [facility], in [place], [place] [address] [place] [phone] Skip Amaya M.D., Ph.D. [address] [place] [phone] 03/11/2025 7:20 AM CDT Office Visit Department of Oncology in [place], [place] [address] [place] [phone] Bipin Leal P.A.-C., M.S. [address] [place] [phone] 03/11/2025 8:00 AM CDT Infusion Department of Oncology in [place], [place] [address] [place] [phone] Skip Amaya M.D., Ph.D. [address] [place] [phone] 03/24/2025 11:20 AM CDT Lab Department of Infusion Therapy in [address] [address] Skip Amaya M.D., Ph.D. [address] [place] [phone] 03/24/2025 1:30 PM CDT Office Visit Department of Oncology in [address] [address] Skip Amaya M.D., Ph.D. [address] [place] [phone] 03/25/2025 7:00 AM CDT Infusion Department of Oncology in [place], [place] [address] [place] [phone] Skip Amaya M.D., Ph.D. [address] [place] [phone] 03/29/2025 2:30 PM CDT Clinical Communication Virtual Review in [place], [place] [address] [place] [address] 04/01/2025 6:00 AM CDT Lab Department of Infusion Therapy in [place], [place] [address] [place] [phone] Skip Amaya M.D., Ph.D. [address] [place] [phone] 04/01/2025 8:20 AM CDT Office Visit Department of Oncology in [address] [address] Precious Hill M.D., Ph.D. [address] [place] [phone] 04/01/2025 9:00 AM CDT Infusion Department of Oncology in [address] [address] Skip Amaya M.D., Ph.D. [address] [place] [phone] 04/07/2025 11:00 AM CDT Lab Department of Infusion Therapy in [address] [address] Skip Amaya M.D., Ph.D. [address] [place] [phone] 04/07/2025 1:20 PM CDT Office Visit Department of Oncology in [place], [place] [address] [place] [phone] Sandy Judge APRN, C.N.P., M.S. [address] [place] [phone] 04/08/2025 7:00 AM CDT Infusion Department of Oncology in [place], [place] [address] [place] [phone] Skip Amaya M.D., Ph.D. [address] [place] [phone] 04/21/2025 7:15 AM CDT Clinical Communication Virtual Review in [place], [place] [address] [place] [address] 04/22/2025 7:20 AM CDT Lab Department of Infusion Therapy in [place], [place] [address] [place] [phone] Skip Amaya M.D., Ph.D. [address] [place] [phone] 04/22/2025 9:20 AM CDT Office Visit Department of Oncology in [place], [place] [address] [place] [phone] Sandy Judge APRN, C.N.P., M.S. [address] [place] [phone] 04/22/2025 10:30 AM CDT Infusion Department of Oncology in [place], [place] [address] [place] [phone] Skip Amaya M.D., Ph.D. [address] [place] [phone] documented as of this encounter Goals Goal Patient Goal Type Associated Problems Recent Progress Patient-Stated? Author Autogenerat ed Goal Care Plan Autogenerated Problem No Hedy Lees R.N. documented as of this encounter Visit Diagnoses Not on filedocumented in this encounter Additional Health Concerns Active Problems Noted Date Diagnosed Date Autogenerated Problem 11/16/2024 documented as of this encounter Care Teams Construction Controller Relationship Specialty Start Date End Date Elsewhere, Pcp PCP - General Internal Medicine 09/09/23 documented as of this encounter
--- OUTSIDE RECORDS SUMMARY | 2025-01-30 17:44 | XMS_ITS | Encounter Summary ---
Author Organization [facility] Address [address] [place] [id number] Care Team Providers Care Multimedia Instructional Designer Name Role Phone Elsewhere, Pcp Primary Care Provider Unavailabl e Encounter Details Date Type Department Care Team (Late st Contact Info) Description 01/30/2025 Clinical Communication Department of Oncology in [place], [place] [address] [place] [address] Jurgen Flores Jr., M.D., M.B.A. [address] [place] [phone] Social History Tobacco Use Types Packs/Day Years Used Date Smoking Tobacco: Never Passive Smoke Exposure: Past Smokeless Tobacco: Never Passive Exposure Comments:Ch ildhood exposure. Alcohol Use Standard Drinks/Week Comments Not Currently 1 (1 standard drink = 0.6 oz pur e alcohol) 0-1 drink per week [facility] Utilities Answer Date Recorded In the past 12 months has [employer] electric, gas, oil, or water company threatened [...] your living situation today? I have a [facility] place to live 12/23/2024 Education Answer Date Recorded What is the highest level of school you have completed or the highest degree you have received? Master's degree (e.g., MA, MS, Katelyn, MEd, [employer] SUPERVISOR, KELLEE) 01/05/2025 Sex and Gender Information Value Date Recorded Sex Assigned at Male 09/10/2023 7:48 AM TOY STUFFER Legal Sex Male 10:11 PM TOY STUFFER Gender Identity Male 09/10/2023 7:48 AM TOY STUFFER Sexual Orientation Straight 09/10/2023 7: 48 AM TOY STUFFER documented as of this encounter Miscellaneous Notes * Telephone Encounter - Jurgen Flores Jr., M.D., M.B.A. - 01/30/2025 5:19 PM CDT Patients called to report that he developed fever this morning and he is now having a fever of101.6 F. He also endorsed some chills and abdominal pain that started yesterday. He also had diarrhea that started yesterday but has resolved. He is on a clinical trial and had his first chemotherapyinfusion on 01/28. Even though he is not neutropenic, he is having a high fever and will benefit from being evaluated by a physician. I informed them to go to the closest ER to him for evaluation. They would prefer to come to [place] as he is about 45 miles away. They will present to the ER here and I will also notify his clinical trial team. documented in this encounter Plan of Treatment Upcoming Encounters Date Type Department Care Team (Latest Contact Info) Description 02/04/2025 7:00 AM CDT Lab Department of Infusion Therapy in [place], [place] [address] [place] [phone] Skip Amaya M.D., Ph.D. [address] [place] [phone] 02/04/2025 8:20 AM CDT Office Visit Department of Oncology in [place], [place] [address] [place] [phone] Jag Frye, MANAGER HOTEL, C.N.P., D.N.P. [address] [place] [phone] 02/04/2025 2:00 PM CDT Infusion Department of Oncology in [place], [place] [address] [place] [phone] Skip Amaya M.D., Ph.D. [address] [place] [phone] 02/08/2025 2:15 PM CDT Clinical Communication Virtual Review in [place], [place] [address] [place] [phone] 02/09/2025 9:30 AM CDT Telemedicine Department of Oncology in [address] [address] Jesica Wasserman M.B., B.Ch. [address] [place] [phone] Cecily Nash L.I.C.S.W. [address] [place] [phone] 02/10/2025 12:00 PM CDT Lab Department of Infusion Therapy in [address] [address] Skip Amaya M.D., Ph.D. [address] [place] [phone] 02/10/2025 2:30 PM CDT Office Visit Department of Oncology in [place], [place] [address] [place] [phone] Rosenda Garza MPAS, P.A.-C. [address] [place] [phone] 02/11/2025 8:00 AM CDT Infusion Department of Oncology in [place], [place] [address] [place] [phone] Skip Amaya M.D., Ph.D. [address] [place] [phone] 02/23/2025 2:15 PM CDT Clinical Communication Virtual Review in [place], [place] [address] [place] [address] 02/25/2025 8:30 AM CDT Lab Department of Oncology in [place], [place] [address] [place] [phone] Skip Amaya M.D., Ph.D. [address] [place] [phone] 02/25/2025 10:40 AM CDT Office Visit Department of Oncology in [place], [place] [address] [place] [phone] Sandy Judge APRN, C.N.P., M.S. [address] [place] [phone] 02/25/2025 11:30 AM CDT Infusion Department of Oncology in [place], [place] [address] [place] [phone] Skip Amaya M.D., Ph.D. [address] [place] [phone] 03/04/2025 6:00 AM CDT Lab Department of Infusion Therapy in [address] [address] Skip Amaya M.D., Ph.D. [address] [place] [phone] 03/04/2025 8:10 AM CDT Office Visit Department of Oncology in [address] [phone] Jie Shook P.A.-C. [address] [place] [phone] 03/04/2025 9:30 AM CDT Infusion Department of Oncology in [address] [address] Skip Amaya M.D., Ph.D. [address] [place] [phone] 03/10/2025 2:15 PM CDT Clinical Communication Virtual Review in [place], [place] [address] [place] [address] 03/11/2025 6:00 AM CDT Lab Department of Laboratory Medicine and Pathology, [facility], in [address] [address] Skip Amaya M.D., Ph.D. [address] [place] [phone] 03/11/2025 7:20 AM CDT Office Visit Department of Oncology in [address] [address] Bipin Leal P.A.-C., M.S. [address] [place] [phone] 03/11/2025 8:00 AM CDT Infusion Department of Oncology in [place], [place] [address] [place] [phone] Skip Amaya M.D., Ph.D. [address] [place] [phone] 03/24/2025 11:20 AM CDT Lab Department of Infusion Therapy in [place], [place] [address] [place] [phone] Skip Amaya M.D., Ph.D. [address] [place] [phone] 03/24/2025 1:30 PM CDT Office Visit Department of Oncology in [place], [place] [address] [place] [phone] Skip Amaya M.D., Ph.D. [address] [place] [phone] 03/25/2025 7:00 AM CDT Infusion Department of Oncology in [place], [place] [address] [place] [phone] Skip Amaya M.D., Ph.D. [address] [place] [phone] 03/29/2025 2:30 PM CDT Clinical Communication Virtual Review in [place], [place] [address] [place] [address] 04/01/2025 6:00 AM CDT Lab Department of Infusion Therapy in [place], [place] [address] [place] [phone] Skip Amaya M.D., Ph.D. [address] [place] [phone] 04/01/2025 8:20 AM CDT Office Visit Department of Oncology in [place], [place] [address] [place] [phone] Precious Hill M.D., Ph.D. [address] [place] [phone] 04/01/2025 9:00 AM CDT Infusion Department of Oncology in [place], [place] [address] [place] [phone] Skip Amaya M.D., Ph.D. [address] [place] [phone] 04/07/2025 11:00 AM CDT Lab Department of Infusion Therapy in [address] [address] Skip Amaya M.D., Ph.D. [address] [place] [phone] 04/07/2025 1:20 PM CDT Office Visit Department of Oncology in [address] [phone] Sandy Judge, KASH, C.N.P., M.S. [address] [place] [phone] 04/08/2025 7:00 AM CDT Infusion Department of Oncology in [place], [place] [address] [place] [phone] Skip Amaya M.D., Ph.D. [address] [place] [phone] 04/21/2025 7:15 AM CDT Clinical Communication Virtual Review in [place], [place] [address] [place] [address] 04/22/2025 7:20 AM CDT Lab Department of Infusion Therapy in [address] [address] Skip Amaya M.D., Ph.D. [address] [place] [phone] 04/22/2025 9:20 AM CDT Office Visit Department of Oncology in [place], [place] [address] [place] [phone] Sandy Judge, KASH, C.N.P., M.S. [address] [place] [phone] 04/22/2025 10:30 AM CDT Infusion Department of Oncology in [place], [place] [address] [place] [phone] Skip Amaya M.D., Ph.D. [address] [place] [phone] documented as of this encounter Goals Goal [...] documented as of this encounter Care Teams Multimedia Instructional Designer Relationship Specialty Start Date End Date Elsewhere, Pcp PCP - General Internal Medicine 09/09/23 documented as of this encounter
--- OUTSIDE RECORDS SUMMARY | 2025-01-30 17:45 | XMS_ITS | Encounter Summary ---
Author Organization [facility] Address [address] [place] [address] Care Team Providers Care Furniture Servicer Name Role Phone Elsewhere, Pcp Primary Care Provider Unavailabl e Encounter Details Date Type Department Care Team (Latest Contact Info) Description 01/11/2025 Results Follow-Up Department of Oncology in [address] [place] [phone] Jesica Wasserman M.B., B.Ch. [address] [place] [address] Mismatch Repair (MMR) Protein Immunohistochemistry Only, Tumor Social History Tobacco Use Types Packs/Day Years Used Date Smoking Tobacco: Never Passive Smoke Exposure: Past Smokeless Tobacco: Never Passive Exposure Comments: ildhood exposure. Alcohol Use Standard Drinks/Week Comments Not Currently 1 (1 standard drink = 0.6 oz pur e alcohol) 0-1 drink per week [facility] Utilities Answer Date Recorded In the past 12 months has [employer] electric, gas, oil, or water company threatened [...] your living situation today? I have a [facility] place to live 12/23/2024 Education Answer Date Recorded What is the highest level of school you have completed or the highest degree you have received? Master's degree (e.g., MA, MS, Katelyn, MEd, SUPERVISOR [employer], KELLEE) 01/05/2025 Sex and Gender Information Value Date Recorded Sex Assigned at Male 09/10/2023 7:48 AM SHAKE TABLE OPERATOR Legal Sex Male 10:11 PM SHAKE TABLE OPERATOR Gender Identity Male 09/10/2023 7:48 AM SHAKE TABLE OPERATOR Sexual Orientation Straight 09/10/2023 7: 48 AM SHAKE TABLE OPERATOR documented as of this encounter Plan of Treatment Upcoming Encounters Date Type Department Care Team (Latest Contact Info) Description 02/04/2025 7:00 AM CDT Lab Department of Infusion Therapy in [place], [place] [address] [place] [phone] Skip Amaya M.D., Ph.D. [address] [place] [phone] 02/04/2025 8:20 AM CDT Office Visit Department of Oncology in [address] [phone] Jag Frye, KASH, C.N.P., D.N.P. [address] [place] [address] [phone] 02/04/2025 2:00 PM CDT Infusion Department of Oncology in [place], [place] [address] [place] [phone] Skip Amaya M.D., Ph.D. [address] [place] [phone] 02/08/2025 2:15 PM CDT Clinical Communication Virtual Review in [place], [place] 200 [place] [address] 02/09/2025 9:30 AM CDT Telemedicine Department of Oncology in [address] [address] Jesica Wasserman M.B., B.Ch. [address] [place] [phone] Cecily Nash L.I.C.SJustynW. [address] [place] [phone] 02/10/2025 12:00 PM CDT Lab Department of Infusion Therapy in [address] [address] Skip Amaya M.D., Ph.D. [address] [place] [phone] 02/10/2025 2:30 PM CDT Office Visit Department of Oncology in [address] [phone] Rosenda Garza MPAS, P.A.-C. [address] [place] [phone] 02/11/2025 8:00 AM CDT Infusion Department of Oncology in [address] [phone] Skip Amaya M.D., Ph.D. [address] [place] [phone] 02/23/2025 2:15 PM CDT Clinical Communication Virtual Review in [place], [place] 200 [place] [address] 02/25/2025 8:30 AM CDT Lab Department of Oncology in [place], [place] [address] [place] [phone] Skip Amaya M.D., Ph.D. [address] [place] [phone] 02/25/2025 10:40 AM CDT Office Visit Department of Oncology in [place], [place] [address] [place] [phone] Sandy Judge, KASH, C.N.P., M.S. [address] [place] [phone] 02/25/2025 11:30 AM CDT Infusion Department of Oncology in [address] [address] Skip Amaya M.D., Ph.D. [address] [place] [phone] 03/04/2025 6:00 AM CDT Lab Department of Infusion Therapy in [address] [address] Skip Amaya M.D., Ph.D. [address] [place] [phone] 03/04/2025 8:10 AM CDT Office Visit Department of Oncology in [address] [phone] Jie Shook P.A.-C. [address] [place] [phone] 03/04/2025 9:30 AM CDT Infusion Department of Oncology in [address] [address] Skip Amaya M.D., Ph.D. [address] [place] [phone] 03/10/2025 2:15 PM CDT Clinical Communication Virtual Review in [place], [place] 200 [place] [address] 03/11/2025 6:00 AM CDT Lab Department of Laboratory Medicine and Pathology, [facility] in [place], [place] [address] [place] [phone] Skip Amaya M.D., Ph.D. [address] [place] [phone] 03/11/2025 7:20 AM CDT Office Visit Department of Oncology in [place], [place] [address] [place] [phone] Bipin Leal P.A.-C., M.S. [address] [place] [phone] 03/11/2025 8:00 AM CDT Infusion Department of Oncology in [place], [place] [address] [place] [phone] Skip Amaya M.D., Ph.D. [address] [place] [phone] 03/24/2025 11:20 AM CDT Lab Department of Infusion Therapy in [place], [place] [address] [place] [phone] Skip Amaya M.D., Ph.D. [address] [place] [phone] 03/24/2025 1:30 PM CDT Office Visit Department of Oncology in [place], [place] [address] [place] [phone] Skip Amaya M.D., Ph.D. [address] [place] [phone] 03/25/2025 7:00 AM CDT Infusion Department of Oncology in [place], [place] [address] [place] [phone] Skip Amaya M.D., Ph.D. [address] [place] [phone] 03/29/2025 2:30 PM CDT Clinical Communication Virtual Review in [place], [place] 200 [place] [address] 04/01/2025 6:00 AM CDT Lab Department of Infusion Therapy in [address] [phone] Skip Amaya M.D., Ph.D. [address] [place] [phone] 04/01/2025 8:20 AM CDT Office Visit Department of Oncology in [address] [phone] Precious Hill M.D., Ph.D. [address] [place] [phone] 04/01/2025 9:00 AM CDT Infusion Department of Oncology in [place], [place] [address] [place] [phone] Skip Amaya M.D., Ph.D. [address] [place] [phone] 04/07/2025 11:00 AM CDT Lab Department of Infusion Therapy in [address] [phone] Skip Amaya M.D., Ph.D. [address] [place] [phone] 04/07/2025 1:20 PM CDT Office Visit Department of Oncology in [place], [place] [address] [place] [phone] Sandy Judge APRN, Jordy.N.Bhavin., M.S. [address] [place] [phone] 04/08/2025 7:00 AM CDT Infusion Department of Oncology in [place], [place] [address] [place] [phone] Skip Amaya M.D., Ph.D. [address] [place] [phone] 04/21/2025 7:15 AM CDT Clinical Communication Virtual Review in [place], [place] 200 [place] [address] 04/22/2025 7:20 AM CDT Lab Department of Infusion Therapy in [place], [place] [address] [place] [phone] Skip Amaya M.D., Ph.D. [address] [place] [phone] 04/22/2025 9:20 AM CDT Office Visit Department of Oncology in [place], [place] [address] [place] [phone] Sandy Judge APRN, Jordy.N.Bhavin., M.S. [address] [place] [phone] 04/22/2025 10:30 AM CDT Infusion Department of Oncology in [place], [place] [address] [place] [phone] Skip Amaya M.D., Ph.D. [address] [place] [phone] documented as of this encounter Goals Goal [...] documented as of this encounter Care Teams Furniture Servicer Relationship Specialty Start Date End Date Elsewhere, Pcp PCP - General Internal Medicine 09/09/23 documented as of this encounter
--- OUTSIDE RECORDS SUMMARY | 2025-01-30 17:45 | XMS_ITS | Encounter Summary ---
Author Organization [facility] Address [address] [place] [address] Care Team Providers Care Supervisor Reinforced Steel Placing Name Role Phone Elsewhere, Pcp Primary Care Provider Unavailabl e Reason for Visit * Reason Comments Genetic Testing Results Encounter Details Date Type Department Care Team (Late st Contact Info) Description 01/11/2025 Documentation Department of Medical Genetics in [place], [place] [address] [place] [address] Criselda Hagen, [facility] [place] Genetic Testing Results Social History Tobacco Use Types Packs/Day Years Used Date Smoking Tobacco: Never Passive Smoke Exposure: Past Smokeless Tobacco: Never Passive Exposure Comments:Ch ildhood exposure. Alcohol Use Standard Drinks/Week Comments Not Currently 1 (1 standard drink = 0.6 oz pur e alcohol) 0-1 drink per week [facility] Utilities Answer Date Recorded In the past 12 months has e [employer], gas, oil, or water [employer] threatened to shut off services in your [...] Master's degree (e.g., MA, MS, Katelyn, MEd, JOB PRINTER, KELLEE) 01/05/2025 Sex and Gender Information Value Date Recorded Sex Assigned at Male 09/10/2023 7:48 AM CUSTOMER CARE CONSULTANT Legal Sex Male 10:11 PM CUSTOMER CARE CONSULTANT Gender Identity Male 09/10/2023 7:48 AM CUSTOMER CARE CONSULTANT Sexual Orientation Straight 09/10/2023 7: 48 AM CUSTOMER CARE CONSULTANT documented as of this encounter Progress Notes * Criselda Hagen, Unlicensed NINA - 01/11/2025 11:10 AM CDT Images from the original note were not included. CHIEF COMPLAINT/PURPOSE Germline genetic testing results. No pathogenic variants identified. See below for genetic test result interpretation and screening recommendations. HISTORY OF PRESENT ILLNESS Noel Cohen was seen in the Department of Clinical Genomics on 12/29/2024 due to a personal diagnosis/history of cancer. Noel elected to pursue the Multi-Cancer + RNA panel through [facility]. These results were communicated to the patient via the patient online services portal by our genetic counseling school health assistant. RESULTS Germline genetic testing included sequence analysis, deletion/duplication analysis, and RNA analysis of 70 genes associated with hereditary cancer. For a full list of genes included in the analysis, please refer to the genetic test report scanned into the patient's chart (document viewer tab). The patient's germline genetic testing did not identify any pathogenic variants (mutations). 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 A VUS is a change in the spelling of a gene for which the clinical implications are unknown. A VUS is a common finding on genetic testing. It could be a non-harmful change in the DNA (a benign variant) that has no clinical significance, or it could be a harmful change (a pathogenic mutation). A VUS cannot be used to make medical decisions because its significance is unknown. We typically do nottest relatives clinically or change medical management based on a variant of uncertain significance. We strongly encourage the patient to contact us every 1-3 years to inquire about changes to the classification of this variant. Known pathogenic variants in the RET gene are associated with autosomal dominant multiple endocrineneoplasia type 2 (MEN2) and nonsyndromic Hirschsprung disease. Again, the patient does not have a known pathogenic variant in the RET gene. The fact that no pathogenic variants were detected in the genes for which Noel was tested is reassuring. However, the fact that a pathogenic variant was not identified does not eliminate the possibility that the patient and/or their family members have a hereditary susceptibility to cancer. Genetic testing has less than 100% sensitivity, meaning there is a small possibility that a pathogenic variant exists in one of the genes analyzed which cannot be identified by current testing methodology. It is possible that pathogenic variants in cancer susceptibility genes which have not yet been discovered may be contributing to the personal and/or family history of cancer. It is also possible that there is a hereditary susceptibility to cancer that has affected the patient's family members, that Noel simply did not inherit. Affected family members (e.g. those with a cancer diagnosis themselves) may wish to pursue their own genetic testing to further clarify the family's risk. A negative genetic testing result does not mean that someone will not develop cancer in their lifetime. PERSONAL AND FAMILY SCREENING RECOMMENDATIONS Given that a hereditary susceptibility to cancer has not been identified by genetic testing, it is generally recommended to screen patients and their family members based on their personal and/or family histories of cancer. It is important for the patient to continue to follow any cancer treatment,management, and/or screening recommendations as directed by their managing provider. Individuals in this family with a first- [...] screening recommendations, suchas those made by the [place] [employer], do remain appropriate. FOLLOW UP/RECOMMENDATIONS It is recommended that Noel contact our clinic if there are changes to their personal or family history of cancer, as this information may change our genetic testing recommendations. Additionally, the patient is welcome to contact our clinic periodically, as our genetic testing options will likelyimprove over time. The patient is welcome to contact our clinic with any questions. Cosigned by Danay Diaz M.S., GREG at 01/12/2025 8:43 AM CDT documented in this encounter Plan of Treatment Upcoming Encounters Date Type Department Care Team (Latest Contact Info) Description 02/04/2025 7:00 AM CDT Lab Department of Infusion Therapy in [address] [phone] Skip Amaya M.D., Ph.D. [address] [place] [phone] 02/04/2025 8:20 AM CDT Office Visit Department of Oncology in [address] [phone] Jag Frye, KASH, C.N.P., D.N.P. [address] [place] [phone] 02/04/2025 2:00 PM CDT Infusion Department of Oncology in [place], [place] [address] [place] [phone] Skip Amaya M.D., Ph.D. [address] [place] [phone] 02/08/2025 2:15 PM CDT Clinical Communication Virtual Review in [place], [place] 200 [place] [address] 02/09/2025 9:30 AM CDT Telemedicine Department of Oncology in [address] [address] Jesica Wasserman M.B., B.Ch. [address] [place] [phone] Cecily Nash L.I.C.S.W. [address] [place] [phone] 02/10/2025 12:00 PM CDT Lab Department of Infusion Therapy in [address] [phone] Skip Amaya M.D., Ph.D. [address] [place] [phone] 02/10/2025 2:30 PM CDT Office Visit Department of Oncology in [address] [phone] Rosenda Garza MPAS, P.A.-C. [address] [place] [phone] 02/11/2025 8:00 AM CDT Infusion Department of Oncology in [address] [address] Skip Amaya M.D., Ph.D. [address] [place] [phone] 02/23/2025 2:15 PM CDT Clinical Communication Virtual Review in [place], [place] 200 [place] [address] 02/25/2025 8:30 AM CDT Lab Department of Oncology in [address] [address] Skip Amaya M.D., Ph.D. [address] [place] [phone] 02/25/2025 10:40 AM CDT Office Visit Department of Oncology in [address] [phone] Sandy Judge APRN, C.N.P., M.S. [address] [place] [phone] 02/25/2025 11:30 AM CDT Infusion Department of Oncology in [place], [place] [address] [place] [phone] Skip Amaya M.D., Ph.D. [address] [place] [phone] 03/04/2025 6:00 AM CDT Lab Department of Infusion Therapy in [place], [place] [address] [place] [phone] Skip Amaya M.D., Ph.D. [address] [place] [phone] 03/04/2025 8:10 AM CDT Office Visit Department of Oncology in [address] [phone] Jie Shook P.A.-C. [address] [place] [phone] 03/04/2025 9:30 AM CDT Infusion Department of Oncology in [address] [address] Skip Amaya M.D., Ph.D. [address] [place] [phone] 03/10/2025 2:15 PM CDT Clinical Communication Virtual Review in [place], [place] 200 [place] [address] 03/11/2025 6:00 AM CDT Lab Department of Laboratory Medicine and Pathology, [facility], in [address] [address] Skip Amaya M.D., Ph.D. [address] [place] [phone] 03/11/2025 7:20 AM CDT Office Visit Department of Oncology in [place], [place] [address] [place] [phone] Bipin Leal P.A.-C., M.S. [address] [place] [phone] 03/11/2025 8:00 AM CDT Infusion Department of Oncology in [place], [place] [address] [place] [phone] Skip Amaya M.D., Ph.D. [address] [place] [phone] 03/24/2025 11:20 AM CDT Lab Department of Infusion Therapy in [address] [address] Skip Amaya M.D., Ph.D. [address] [place] [phone] 03/24/2025 1:30 PM CDT Office Visit Department of Oncology in [address] [address] Skip Amaya M.D., Ph.D. [address] [place] [phone] 03/25/2025 7:00 AM CDT Infusion Department of Oncology in [address] [address] Skip Amaya M.D., Ph.D. [address] [place] [phone] 03/29/2025 2:30 PM CDT Clinical Communication Virtual Review in [place], [place] 200 [place] [address] 04/01/2025 6:00 AM CDT Lab Department of Infusion Therapy in [address] [address] Skip Amaya M.D., Ph.D. [address] [place] [phone] 04/01/2025 8:20 AM CDT Office Visit Department of Oncology in [place], [place] [address] [place] [phone] Precious Hill M.D., Ph.D. [address] [place] [phone] 04/01/2025 9:00 AM CDT Infusion Department of Oncology in [place], [place] [address] [place] [phone] Skip Amaya M.D., Ph.D. [address] [place] [phone] 04/07/2025 11:00 AM CDT Lab Department of Infusion Therapy in [address] [address] Skip Amaya M.D., Ph.D. [address] [place] [phone] 04/07/2025 1:20 PM CDT Office Visit Department of Oncology in [place], [place] [address] [place] [phone] Sandy Judge, KASH, C.N.P., M.S. [address] [place] [phone] 04/08/2025 7:00 AM CDT Infusion Department of Oncology in [place], [place] [address] [place] [phone] Skip Amaya M.D., Ph.D. [address] [place] [phone] 04/21/2025 7:15 AM CDT Clinical Communication Virtual Review in [place], [place] 200 [place] [phone] 04/22/2025 7:20 AM CDT Lab Department of Infusion Therapy in [place], [place] [address] [place] [phone] Skip Amaya M.D., Ph.D. [address] [place] [address] [phone] 04/22/2025 9:20 AM CDT Office Visit Department of Oncology in [address] [phone] Sandy Judge, KASH, C.N.P., M.S. [address] [place] [address] [phone] 04/22/2025 10:30 AM CDT Infusion Department of Oncology in [address] [address] Skip Amaya M.D., Ph.D. [address] [place] [address] [phone] documented as of this encounter Goals Goal [...] as of this encounter Care Teams Supervisor Reinforced Steel Placing Relationship Specialty Start Date End Date Elsewhere, Pcp PCP - General Internal Medicine 09/09/23 documented as of this encounter
--- OUTSIDE RECORDS SUMMARY | 2025-01-30 17:45 | XMS_ITS | Encounter Summary ---
Author Organization [facility] Address [address] [place] [address] Care Team Providers Care Public Space Attendant Name Role Phone Elsewhere, Pcp Primary Care Provider Unavailabl e Reason for Referral * MRI/CAT/PET Scan (Routine) - Closed Specialty Diagnoses / Procedures Referred By Contac t Referred To Contact Radiology Diagnoses Malignant Neoplasm Of Pancreas Tail (HCC) Procedures CT Abdomen Pelvis with IV Contrast Skip Amaya M.D., Ph.D. [address] [place] [phone] Phone: tel: fax: [facility] Referral ID Status Reason Start Date Expiration Date Visits Re quested Visits Authorized [id number] Closed 01/19/2025 04/21/2026 1 1 * MRI/CAT/PET Scan (Routine) - Closed Specialty Diagnoses / Procedures Referred By Contac t Referred To Contact Radiology Diagnoses Malignant Neoplasm Of Pancreas Tail (HCC) Procedures CT Chest with IV Contrast Skip Amaya M.D., Ph.D. [address] [place] [phone] Phone: tel: fax: [facility] Referral ID Status Reason Start Date Expiration Date Visits Re quested Visits Authorized [id number] Closed 01/19/2025 04/21/2026 1 1 * MRI/CAT/PET Scan (Routine) - Authorized Specialty Diagnoses / Procedures Referred By Contac t Referred To Contact Radiology Diagnoses Malignant Neoplasm Of Pancreas Tail (HCC) Procedures CT Abdomen Pelvis with IV Contrast Skip Amaya M.D., Ph.D. [address] [place] [phone] Phone: tel: fax: [facility] Referral ID Status Reason Start Date Expiration Date V isits Requested Visits Authorized [id number] Authorized 01/19/2025 04/21/2026 1 1 * MRI/CAT/PET Scan (Routine) - Authorized Specialty Diagnoses / Procedures Referred By Contac t Referred To Contact Radiology Diagnoses Malignant Neoplasm Of Pancreas Tail (HCC) Procedures CT Chest with IV Contrast Skip Amaya M.D., Ph.D. [address] [place] [phone] Phone: tel: fax: [facility] Referral ID Status Reason Start Date Expiration Date V isits Requested Visits Authorized [id number] Authorized 01/19/2025 04/21/2026 1 1 * MRI/CAT/PET Scan (Routine) - Closed Specialty Diagnoses / Procedures Referred By Contac t Referred To Contact Radiology Diagnoses Malignant Neoplasm Of Pancreas Tail (HCC) Procedures CT Head without and with IV Contrast Skip Amaya M.D., Ph.D. [address] [place] [phone] Phone: tel: fax: [facility] Referral ID Status Reason Start Date Expiration Date Visits Re quested Visits Authorized [id number] Closed 01/19/2025 04/21/2026 1 1 Encounter Details Date Type Department Care Team (Late st Contact Info) Description 01/19/2025 Orders Only Department of Oncology in [place], [place] [address] [place] [address] Rand Lissett M [address] [place] [address] 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) Social History Tobacco Use Types Packs/Day Years Used Date Smoking Tobacco: Never Passive Smoke Exposure: Past Smokeless Tobacco: Never Passive Exposure Comments:Ch ildhood exposure. Alcohol Use Standard Drinks/Week Comments Not Currently 1 (1 standard drink = 0.6 oz pur e alcohol) 0-1 drink per week [facility] Utilities Answer Date Recorded In the past [...] your living situation today? I have a [facility] place to live 12/23/2024 Education Answer Date Recorded What is the highest level of school you have completed or the highest degree you have received? Master's degree (e.g., MA, MS, Katelyn, MEd, DEBONING TEAM LEADER, KELLEE) 01/05/2025 Sex and Gender Information Value Date Recorded Sex Assigned at Male 09/10/2023 7:48 AM PACKER INSPECTOR Legal Sex Male 10:11 PM PACKER INSPECTOR Gender Identity Male 09/10/2023 7:48 AM PACKER INSPECTOR Sexual Orientation Straight 09/10/2023 7: 48 AM PACKER INSPECTOR documented as of this encounter Plan of Treatment Upcoming Encounters Date Type Department Care Team (Latest Contact Info) Description 02/04/2025 7:00 AM CDT Lab Department of Infusion Therapy in [place], [place] [address] [place] [phone] Skpi Amaya M.D., Ph.D. [address] [place] [phone] 02/04/2025 8:20 AM CDT Office Visit Department of Oncology in [place], [place] [address] [place] [phone] Jag Frye, KASH, C.N.P., D.N.P. [address] [place] [phone] 02/04/2025 2:00 PM CDT Infusion Department of Oncology in [place], [place] [address] [place] [phone] Skip Amaya M.D., Ph.D. [address] [place] [phone] 02/08/2025 2:15 PM CDT Clinical Communication Virtual Review in [place], [place] 200 [place] [address] 02/09/2025 9:30 AM CDT Telemedicine Department of Oncology in [address] [address] Jesica Wasserman M.B., B.Ch. [address] [place] [phone] Cecily Nash L.IJustynC.S.W. [address] [place] [phone] 02/10/2025 12:00 PM CDT Lab Department of Infusion Therapy in [place], [place] [address] [place] [phone] Skip Amaya M.D., Ph.D. [address] [place] [phone] 02/10/2025 2:30 PM CDT Office Visit Department of Oncology in [address] [phone] Rosenda Garza MPAS, P.A.-C. [address] [place] [phone] 02/11/2025 8:00 AM CDT Infusion Department of Oncology in [address] [phone] Skip Amaya M.D., Ph.D. [address] [place] [phone] 02/23/2025 2:15 PM CDT Clinical Communication Virtual Review in [place], [place] 200 [place] [address] 02/25/2025 8:30 AM CDT Lab Department of Oncology in [address] [address] Skip Amaya M.D., Ph.D. [address] [place] [phone] 02/25/2025 10:40 AM CDT Office Visit Department of Oncology in [address] [phone] Sandy Judge APRN, C.N.P., M.S. [address] [place] [phone] 02/25/2025 11:30 AM CDT Infusion Department of Oncology in [place], [place] [address] [place] [phone] Skip Amaya M.D., Ph.D. [address] [place] [phone] 03/04/2025 6:00 AM CDT Lab Department of Infusion Therapy in [place], [place] [address] [place] [phone] Skip Amaya M.D., Ph.D. [address] [place] [phone] 03/04/2025 8:10 AM CDT Office Visit Department of Oncology in [address] [address] Jie Shook P.A.-C. [address] [place] [phone] 03/04/2025 9:30 AM CDT Infusion Department of Oncology in [place], [place] [address] [place] [phone] Skip Amaya M.D., Ph.D. [address] [place] [phone] 03/10/2025 2:15 PM CDT Clinical Communication Virtual Review in [place], [place] 200 [place] [address] 03/11/2025 6:00 AM CDT Lab Department of Laboratory Medicine and Pathology, [facility], in [address] [address] Skip Amaya M.D., Ph.D. [address] [place] [phone] 03/11/2025 7:20 AM CDT Office Visit Department of Oncology in [address] [address] Bipin Leal P.A.-C., M.S. [address] [place] [phone] 03/11/2025 8:00 AM CDT Infusion Department of Oncology in [address] [address] Skip Amaya M.D., Ph.D. [address] [place] [phone] 03/24/2025 11:20 AM CDT Lab Department of Infusion Therapy in [address] [address] Skip Amaya M.D., Ph.D. [address] [place] [phone] 03/24/2025 1:30 PM CDT Office Visit Department of Oncology in [address] [address] Skip Amaya M.D., Ph.D. [address] [place] [phone] 03/25/2025 7:00 AM CDT Infusion Department of Oncology in [address] [address] Skip Amaya M.D., Ph.D. [address] [place] [phone] 03/29/2025 2:30 PM CDT Clinical Communication Virtual Review in [place], [place] 200 [place] [address] 04/01/2025 6:00 AM CDT Lab Department of Infusion Therapy in [address] [address] Skip Amaya M.D., Ph.D. [address] [place] [phone] 04/01/2025 8:20 AM CDT Office Visit Department of Oncology in [place], [place] [address] [place] [phone] Precious Hill M.D., Ph.D. [address] [place] [phone] 04/01/2025 9:00 AM CDT Infusion Department of Oncology in [place], [place] [address] [place] [phone] Skip Amaya M.D., Ph.D. [address] [place] [phone] 04/07/2025 11:00 AM CDT Lab Department of Infusion Therapy in [address] [address] Skip Amaya M.D., Ph.D. [address] [place] [phone] 04/07/2025 1:20 PM CDT Office Visit Department of Oncology in [address] [address] Sandy Judge, KASH, C.N.P., M.S. [address] [place] [phone] 04/08/2025 7:00 AM CDT Infusion Department of Oncology in [address] [address] Skip Amaya M.D., Ph.D. [address] [place] [phone] 04/21/2025 7:15 AM CDT Clinical Communication Virtual Review in [place], [place] 200 [place] [phone] 04/22/2025 7:20 AM CDT Lab Department of Infusion Therapy in [place], [place] [address] [place] [phone] Skip Amaya M.D., Ph.D. [address] [place] [phone] 04/22/2025 9:20 AM CDT Office Visit Department of Oncology in [place], [place] [address] [place] [phone] Sandy Judge APRN, C.N.P., M.S. [address] [place] [phone] 04/22/2025 10:30 AM CDT Infusion Department of Oncology in [place], [place] [address] [place] [phone] Skip Amaya M.D., Ph.D. [address] [place] [phone] Scheduled Orders Name Type Priority Associated Diagnoses Orde r Schedule CT Chest with IV Contrast Imaging RAD - Routine (most inpatients and all outpatients) Malignant Neoplasm Of Pancreas Tail (HCC) Expected: 01/19/2025, Expires: 04/21/2026 CT Abdomen Pelvis with IV Contrast Imaging RAD - Routine (most inpatients and all outpatients) Malignant Neoplasm Of Pancreas Tail (HCC) Expected: 01/19/2025, Expires: 04/21/2026 documented as of this encounter Goals Goal Patient Goal Type Associated Problems Recent Progress Patient-Stated? Author Autogenerat ed Goal Care Plan Autogenerated Problem No Hedy Lees, R.N. documented as of this encounter Results * CT Abdomen Pelvis [...] nodules, some have enlarged since he 02/18/2024exam. us Skip Amaya M.D., Ph.D. IMG CT [...] head CT without contrast dated 02/08/[address] [facility] head CT dated 11/27/2023. FINDINGS: The noncontrast [...] head CT without contrast dated 02/08/2024 and [facility] head CT dated 11/27/2023. FINDINGS: The noncontrast [...] Malignant Neoplasm Of Pancreas Tail (HCC)- Primary Malignant Neoplasm Of Pancreas Tail (HCC) documented in this encounter Additional Health Concerns Active Problems Noted Date Diagnosed Date Autogenerated Problem 11/16/2024 Infection Onset Date Last Indicated Resolved Time Protective Environment 01/28/2025 01/28/2025 Assessment Noted Time PHQ-9 Depression Total Score: 7 01/12/20 9:53 AM CDT documented as of this encounter Care Teams Public Space Attendant Relationship Specialty Start Date End Date Elsewhere, Pcp PCP - General Internal Medicine 09/09/23 documented as of this encounter
--- OUTSIDE RECORDS SUMMARY | 2025-01-30 17:45 | XMS_ITS | Encounter Summary ---
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 [address] [place] [address] Phone: tel: [facility] Region Referral ID Status Reason Start Date Expiration Date Visits Re quested Visits Authorized [id number] Closed 01/10/2025 07/12/2026 1 1 Scheduling Instructions Offer patient with RAUL Willard or Juliette CARTER virtually, first available for patient. Encounter Details Date Type Department Care Team (Late st Contact Info) Description 01/10/2025 Orders Only Department of Oncology in [place], [place] [address] [place] [phone] Juliette Martienz M.S.W., L.I.C.S.W. [address] [place] [address] 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); Depression Major One Episode Moderate (HCC) Social History Tobacco Use Types Packs/Day Years Used Date Smoking Tobacco: Never Passive Smoke Exposure: Past Smokeless Tobacco: Never Passive Exposure Comments:Ch ildhood exposure. Alcohol Use Standard Drinks/Week Comments Not Currently 1 (1 standard drink = 0.6 oz pur e alcohol) 0-1 drink per week [facility] Utilities Answer Date Recorded In the past 12 months has [employer], gas, oil, or water [employer] threatened to shut off services in your [...] your living situation today? I have a [facility] to live 12/23/2024 Education Answer Date Recorded What is the highest level of school you have completed or the highest degree you have received? Master's degree (e.g., MA, MS, Katelyn, MEd, MANUFACTURING INSPECTOR, KELLEE) 01/05/2025 Sex and Gender Information Value Date Recorded Sex Assigned at Male 09/10/2023 7:48 AM MASH FILTER CLOTH CHANGER Legal Sex Male 10:11 PM MASH FILTER CLOTH CHANGER Gender Identity Male 09/10/2023 7:48 AM MASH FILTER CLOTH CHANGER Sexual Orientation Straight 09/10/2023 7: 48 AM MASH FILTER CLOTH CHANGER documented as of this encounter Plan of Treatment Upcoming Encounters Date Type Department Care Team (Latest Contact Info) Description 02/04/2025 7:00 AM CDT Lab Department of Infusion Therapy in [place], [place] [address] [place] [phone] Skip Amaya M.D., Ph.D. [address] [place] [phone] 02/04/2025 8:20 AM CDT Office Visit Department of Oncology in [place], [place] [address] [place] [phone] Jag Frye, KASH, C.N.P., D.N.P. [address] [place] [phone] 02/04/2025 2:00 PM CDT Infusion Department of Oncology in [place], [place] [address] [place] [phone] Skip Amaya M.D., Ph.D. [address] [place] [phone] 02/08/2025 2:15 PM CDT Clinical Communication Virtual Review in [place], [place] 200 [place] [phone] 02/09/2025 9:30 AM CDT Telemedicine Department of Oncology in [address] [address] Jesica Wasserman M.B., B.Ch. [address] [place] [phone] Cecily Nash L.I.C.S.W. [address] [place] [phone] 02/10/2025 12:00 PM CDT Lab Department of Infusion Therapy in [address] [phone] Skip Amaya M.D., Ph.D. [address] [place] [phone] 02/10/2025 2:30 PM CDT Office Visit Department of Oncology in [place], [place] [address] [place] [phone] Rosenda Garza MPAS, P.A.-C. [address] [place] [phone] 02/11/2025 8:00 AM CDT Infusion Department of Oncology in [place], [place] [address] [place] [phone] Skip Amaya M.D., Ph.D. [address] [place] [phone] 02/23/2025 2:15 PM CDT Clinical Communication Virtual Review in [place], [place] 200 [place] [phone] 02/25/2025 8:30 AM CDT Lab Department of Oncology in [place], [place] [address] [place] [phone] Skip Amaya M.D., Ph.D. [address] [place] [phone] 02/25/2025 10:40 AM CDT Office Visit Department of Oncology in [place], [place] [address] [place] [phone] Sandy Judge APRN, C.N.P., M.S. [address] [place] [phone] 02/25/2025 11:30 AM CDT Infusion Department of Oncology in [place], [place] [address] [place] [phone] Skip Amaya M.D., Ph.D. [address] [place] [phone] 03/04/2025 6:00 AM CDT Lab Department of Infusion Therapy in [place], [place] [address] [place] [phone] Skip Amaya M.D., Ph.D. [address] [place] [phone] 03/04/2025 8:10 AM CDT Office Visit Department of Oncology in [place], [place] [address] [place] [phone] Jie Shook P.A.-C. [address] [place] [phone] 03/04/2025 9:30 AM CDT Infusion Department of Oncology in [place], [place] [address] [place] [phone] Skip Amaya M.D., Ph.D. [address] [place] [phone] 03/10/2025 2:15 PM CDT Clinical Communication Virtual Review in [place], [place] 200 [place] [phone] 03/11/2025 6:00 AM CDT Lab Department of Laboratory Medicine and Pathology, [facility], in [address] [phone] Skip Amaya M.D., Ph.D. [address] [place] [phone] 03/11/2025 7:20 AM CDT Office Visit Department of Oncology in [address] [phone] Bipin Leal P.A.-C., M.S. [address] [place] [phone] 03/11/2025 8:00 AM CDT Infusion Department of Oncology in [place], [place] [address] [place] [phone] Skip Amaya M.D., Ph.D. [address] [place] [phone] 03/24/2025 11:20 AM CDT Lab Department of Infusion Therapy in [place], [place] [address] [place] [phone] Skip Amaya M.D., Ph.D. [address] [place] [phone] 03/24/2025 1:30 PM CDT Office Visit Department of Oncology in [address] [address] Skip Amaya M.D., Ph.D. [address] [place] [phone] 03/25/2025 7:00 AM CDT Infusion Department of Oncology in [address] [address] Skip Amaya M.D., Ph.D. [address] [place] [phone] 03/29/2025 2:30 PM CDT Clinical Communication Virtual Review in [place], [place] 200 [place] [address] 04/01/2025 6:00 AM CDT Lab Department of Infusion Therapy in [address] [address] Skip Amaya M.D., Ph.D. [address] [place] [phone] 04/01/2025 8:20 AM CDT Office Visit Department of Oncology in [place], [place] [address] [place] [phone] Precious Hill M.D., Ph.D. [address] [place] [phone] 04/01/2025 9:00 AM CDT Infusion Department of Oncology in [place], [place] [address] [place] [phone] Skip Amaya M.D., Ph.D. [address] [place] [phone] 04/07/2025 11:00 AM CDT Lab Department of Infusion Therapy in [place], [place] [address] [place] [phone] Skip Amaya M.D., Ph.D. [address] [place] [phone] 04/07/2025 1:20 PM CDT Office Visit Department of Oncology in [address] [address] Sandy Judge, KASH, C.N.P., M.S. [address] [place] [phone] 04/08/2025 7:00 AM CDT Infusion Department of Oncology in [place], [place] [address] [place] [phone] Skip Amaya M.D., Ph.D. [address] [place] [phone] 04/21/2025 7:15 AM CDT Clinical Communication Virtual Review in [place], [place] 200 [place] [address] 04/22/2025 7:20 AM CDT Lab Department of Infusion Therapy in [place], [place] [address] [place] [phone] Skip Amaya M.D., Ph.D. [address] [place] [phone] 04/22/2025 9:20 AM CDT Office Visit Department of Oncology in [place], [place] [address] [place] [address] Sandy Judge, KASH, C.N.P., M.S. [address] [place] [address] 04/22/2025 10:30 AM CDT Infusion Department of Oncology in [place], [place] [address] [place] [address] Skip Amaya M.D., Ph.D. [address] [place] [phone] Scheduled Referrals Name Type Priority Associated Diagnoses Order Schedule Psychiatry and Psychology - Oncology consult (clinic) Outpatient Referral Routine Malignant Neoplasm Of Pancreas Tail (HCC) Depression Major One Episode Moderate (HCC) Expected: 01/10/2025, Expires: 04/01/2025 documented as of this encounter Goals Goal Patient Goal Type Associated Problems Recent Progress Patient-Stated? Author Autogenerat ed Goal Care Plan Autogenerated Problem No Hedy Lees, RDean documented as of this encounter Visit Diagnoses Diagnosis Malignant Neoplasm Of Pancreas Tail (HCC)- Primary Depression Major One Episode Moderate (HCC) documented in this encounter Additional Health Concerns Active Problems Noted Date Diagnosed Date Autogenerated Problem 11/16/2024 documented as of this encounter Care Teams Harp Regulator Relationship Specialty Start Date End Date Elsewhere, Pcp PCP - General Internal Medicine 09/09/23 documented as of this encounter
--- OUTSIDE RECORDS SUMMARY | 2025-01-30 17:45 | XMS_ITS | Encounter Summary ---
Author Organization [facility] Address [address] [place] [address] Care Team Providers Care [employer] Name Role Phone Elsewhere, Pcp Primary Care Provider Unavailabl e Encounter Details Date Type Department Care Team (Late st Contact Info) Description 01/11/2025 Results Follow-Up Department of Medical Genetics in [place], [place] [address] [place] [address] Criselda Hagen, [place]licensed [place] [facility] [place] Sent Out Lab Social History Tobacco Use Types Packs/Day Years Used Date Smoking Tobacco: Never Passive Smoke Exposure: Past Smokeless Tobacco: Never Passive Exposure Comments:Ch ildhood exposure. Alcohol Use Standard Drinks/Week Comments Not Currently 1 (1 standard drink = 0.6 oz pur e alcohol) 0-1 drink per week [facility] Utilities Answer Date Recorded In the past 12 months has [employer], gas, oil, or water [employer] threatened to shut off services in your [...] your living situation today? I have a [facility] place to live 12/23/2024 Education Answer Date Recorded What is the highest level of school you have completed or the highest degree you have received? Master's degree (e.g., MA, MS, Katelyn, MEd, MEDICINE ASSISTANT, KELLEE) 01/05/2025 Sex and Gender Information Value Date Recorded Sex Assigned at Male 09/10/2023 7:48 AM DIRECTOR OF NUCLEAR MEDICINE Legal Sex Male 10:11 PM DIRECTOR OF NUCLEAR MEDICINE Gender Identity Male 09/10/2023 7:48 AM DIRECTOR OF NUCLEAR MEDICINE Sexual Orientation Straight 09/10/2023 7: 48 AM DIRECTOR OF NUCLEAR MEDICINE documented as of this encounter Plan of Treatment Upcoming Encounters Date Type Department Care Team (Latest Contact Info) Description 02/04/2025 7:00 AM CDT Lab Department of Infusion Therapy in [address] [phone] Skip Amaya M.D., Ph.D. [address] [place] [phone] 02/04/2025 8:20 AM CDT Office Visit Department of Oncology in [place], [place] [address] [place] [phone] Jag Frye, KASH, C.N.P., D.N.P. [address] [place] [phone] 02/04/2025 2:00 PM CDT Infusion Department of Oncology in [place], [place] [address] [place] [phone] Skip Amaya M.D., Ph.D. [address] [place] [phone] 02/08/2025 2:15 PM CDT Clinical Communication Virtual Review in [place], [place] [address] [place] [phone] 02/09/2025 9:30 AM CDT Telemedicine Department of Oncology in [place] [id number] [place] [address] Jesica Wasserman M.B., B.Ch. [address] [place] [phone] Cecily Nash L.I.C.SJustynW. [address] [place] [phone] 02/10/2025 12:00 PM CDT Lab Department of Infusion Therapy in [place], [place] [address] [place] [phone] Skip Amaya M.D., Ph.D. [address] [place] [phone] 02/10/2025 2:30 PM CDT Office Visit Department of Oncology in [place], [place] [address] [place] [phone] Rosenda Garza, MORENA, P.A.-C. [address] [place] [phone] 02/11/2025 8:00 AM CDT Infusion Department of Oncology in [place], [place] [address] [place] [phone] Skip Amaya M.D., Ph.D. [address] [place] [phone] 02/23/2025 2:15 PM CDT Clinical Communication Virtual Review in [place], [place] [address] [place] [address] 02/25/2025 8:30 AM CDT Lab Department of Oncology in [place], [place] [address] [place] [phone] Skip Amaya M.D., Ph.D. [address] [place] [phone] 02/25/2025 10:40 AM CDT Office Visit Department of Oncology in [place], [place] [address] [place] [phone] Sandy Judge APRN, C.N.P., M.S. [address] [place] [phone] 02/25/2025 11:30 AM CDT Infusion Department of Oncology in [place], [place] [address] [place] [phone] Skip Amaya M.D., Ph.D. [address] [place] [phone] 03/04/2025 6:00 AM CDT Lab Department of Infusion Therapy in [address] [phone] Skip Amaya M.D., Ph.D. [address] [place] [phone] 03/04/2025 8:10 AM CDT Office Visit Department of Oncology in [place], [place] [address] [place] [phone] Jie Shook P.A.-C. [address] [place] [phone] 03/04/2025 9:30 AM CDT Infusion Department of Oncology in [address] [phone] Skip Amaya M.D., Ph.D. [address] [place] [phone] 03/10/2025 2:15 PM CDT Clinical Communication Virtual Review in [place], [place] [address] [place] [address] 03/11/2025 6:00 AM CDT Lab Department of Laboratory Medicine and Pathology, [facility] in [place], [place] [address] [place] [phone] Skip Amaya M.D., Ph.D. [address] [place] [phone] 03/11/2025 7:20 AM CDT Office Visit Department of Oncology in [address] [phone] Bipin Leal P.A.-C., M.S. [address] [place] [phone] 03/11/2025 8:00 AM CDT Infusion Department of Oncology in [address] [phone] Skip Amaya M.D., Ph.D. [address] [place] [phone] 03/24/2025 11:20 AM CDT Lab Department of Infusion Therapy in [address] [phone] Skip Amaya M.D., Ph.D. [address] [place] [phone] 03/24/2025 1:30 PM CDT Office Visit Department of Oncology in [place], [place] [address] [place] [phone] Skip Amaya M.D., Ph.D. [address] [place] [phone] 03/25/2025 7:00 AM CDT Infusion Department of Oncology in [place], [place] [address] [place] [phone] Skip Amaya M.D., Ph.D. [address] [place] [phone] 03/29/2025 2:30 PM CDT Clinical Communication Virtual Review in [place], [place] [address] [place] [address] 04/01/2025 6:00 AM CDT Lab Department of Infusion Therapy in [address] [phone] Skip Amaya M.D., Ph.D. [address] [place] [phone] 04/01/2025 8:20 AM CDT Office Visit Department of Oncology in [address] [phone] Precious Hill M.D., Ph.D. [address] [place] [phone] 04/01/2025 9:00 AM CDT Infusion Department of Oncology in [address] [phone] Skip Amaya M.D., Ph.D. [address] [place] [phone] 04/07/2025 11:00 AM CDT Lab Department of Infusion Therapy in [address] [phone] Skip Amaya M.D., Ph.D. [address] [place] [phone] 04/07/2025 1:20 PM CDT Office Visit Department of Oncology in [place], [place] [address] [place] [phone] Sandy Judge APRN, C.N.Bhavin., M.S. [address] [place] [phone] 04/08/2025 7:00 AM CDT Infusion Department of Oncology in [place], [place] [address] [place] [phone] Skip Amaya M.D., Ph.D. [address] [place] [phone] 04/21/2025 7:15 AM CDT Clinical Communication Virtual Review in [place], [place] [address] [place] [address] 04/22/2025 7:20 AM CDT Lab Department of Infusion Therapy in [place], [place] [address] [place] [phone] Skip Amaya M.D., Ph.D. [address] [place] [phone] 04/22/2025 9:20 AM CDT Office Visit Department of Oncology in [address] [phone] Sandy Judge APRN, Jordy.N.Bhavin., M.S. [address] [place] [phone] 04/22/2025 10:30 AM CDT Infusion Department of Oncology in [address] [phone] Skip Amaya M.D., Ph.D. [address] [place] [phone] documented as of this encounter Goals Goal [...] documented as of this encounter Care Teams [employer] Relationship Specialty Start Date End Date Elsewhere, Pcp PCP - General Internal Medicine 09/09/23 documented as of this encounter
--- OUTSIDE RECORDS SUMMARY | 2025-01-30 17:45 | XMS_ITS | Encounter Summary ---
Author Organization [facility] Address [address] [place] [address] Care Team Providers Care Software Support Specialist Name Role Phone Elsewhere, Pcp Primary Care Provider Unavailabl e Reason for Referral * Outpatient (Routine) - Closed Specialty Diagnoses / Procedures Referred By Contac t Referred To Contact Oncology Diagnoses Malignant Neoplasm Of Pancreas Tail (HCC) Skip Amaya M.D., Ph.D. 200 [place] [address] Phone: tel: fax: [facility] Referral ID Status Reason Start Date Expiration Date Visits Re quested Visits Authorized [id number] Closed 01/20/2025 07/22/2026 1 1 * Outpatient (Routine) - Closed Specialty Diagnoses / Procedures Referred By Contac t Referred To Contact Diagnoses Malignant Neoplasm Of Pancreas Tail (HCC) Procedures ECG 12 Lead NC EKG 12 LEAD W I&R Skip Amaya M.D., Ph.D. [address] [place] [phone] Phone: tel: fax: [facility] Referral ID Status Reason Start Date Expiration Date Visits Re quested Visits Authorized [id number] Closed 01/20/2025 04/22/2026 1 1 * Outpatient (Routine) - Closed Specialty Diagnoses / Procedures Referred By Contac t Referred To Contact Diagnoses Malignant Neoplasm Of Pancreas Tail (HCC) Procedures ECG 12 Lead NC EKG 12 LEAD W I&R Skip Amaya M.D., Ph.D. [address] [place] [phone] Phone: tel: fax: [facility] Referral ID Status Reason Start Date Expiration Date Visits Re quested Visits Authorized [id number] Closed 01/20/2025 04/22/2026 1 1 * Outpatient (Routine) - Closed Specialty Diagnoses / Procedures Referred By Meeta carlisle Referred To Contact Diagnoses Malignant Neoplasm Of Pancreas Tail (HCC) Procedures ECG 12 Lead NC EKG 12 LEAD W I&R Skip Amaya M.D., Ph.D. [address] [place] [phone] Phone: tel: fax: [facility] Referral ID Status Reason Start Date Expiration Date Visits Re quested Visits Authorized [id number] Closed 01/20/2025 04/22/2026 1 1 Encounter Details Date Type Department Care Team (Late st Contact Info) Description 01/20/2025 Orders Only Department of Oncology in [place], [place] [address] [place] [phone] Lissett Gordillo [address] [place] [address] [phone] Malignant Neoplasm Of Pancreas Tail (HCC) (Primary [...] your living situation today? I have a [facility] place to live 12/23/2024 Education Answer Date Recorded What is the highest level of school you have completed or the highest degree you have received? 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 200 [place] [address] 02/04/2025 8:20 AM CDT Office Visit Department of Oncology in [place], [place] 200 [place] [phone] Jag Frye, KASH, C.N.P., D.N.P. [address] [place] [phone] 02/04/2025 2:00 PM CDT Infusion Department of Oncology in [place], [place] [address] [place] [phone] Skip Amaya M.D., Ph.D. [address] [place] [phone] 02/08/2025 2:15 PM CDT Clinical Communication Virtual Review in [place], [place] 200 [place] [phone] 02/09/2025 9:30 AM CDT Telemedicine Department of Oncology in [address] [phone] Jesica Wasserman M.B., B.Ch. [address] [place] [phone] Cecily Nash, John.I.C.S.W. [address] [place] [phone] 02/10/2025 12:00 PM CDT Lab Department of Infusion Therapy in [place], [place] [address] [place] [phone] Skip Amaya M.D., Ph.D. [address] [place] [phone] 02/10/2025 2:30 PM CDT Office Visit Department of Oncology in [place], [place] [address] [place] [phone] Rosenda Garza MPAS, P.A.-C. [address] [place] [phone] 02/11/2025 8:00 AM CDT Infusion Department of Oncology in [place], [place] [address] [place] [phone] Skip Amaya M.D., Ph.D. [address] [place] [phone] 02/23/2025 2:15 PM CDT Clinical Communication Virtual Review in [place], [place] 200 [place] [phone] 02/25/2025 8:30 AM CDT Lab Department of Oncology in [place], [place] [address] [place] [phone] Skip Amaya M.D., Ph.D. [address] [place] [phone] 02/25/2025 10:40 AM CDT Office Visit Department of Oncology in [address] [phone] Sandy Judge, KASH, C.N.P., M.S. [address] [place] [phone] 02/25/2025 11:30 AM CDT Infusion Department of Oncology in [address] [phone] Skip Amaya M.D., Ph.D. [address] [place] [phone] 03/04/2025 6:00 AM CDT Lab Department of Infusion Therapy in [address] [phone] Skip Amaya M.D., Ph.D. [address] [place] [phone] 03/04/2025 8:10 AM CDT Office Visit Department of Oncology in [place], [place] [address] [place] [phone] Jie Shook P.A.-C. [address] [place] [phone] 03/04/2025 9:30 AM CDT Infusion Department of Oncology in [place], [place] [address] [place] [phone] Skip Amaya M.D., Ph.D. [address] [place] [phone] 03/10/2025 2:15 PM CDT Clinical Communication Virtual Review in [place], [place] 200 [place] [address] 03/11/2025 6:00 AM CDT Lab Department of Laboratory Medicine and Pathology, [facility] in [address] [phone] Skip Amaya M.D., Ph.D. [address] [place] [phone] 03/11/2025 7:20 AM CDT Office Visit Department of Oncology in [address] [phone] Bipin Leal P.A.-C., M.S. [address] [place] [phone] 03/11/2025 8:00 AM CDT Infusion Department of Oncology in [address] [phone] Skip Amaya M.D., Ph.D. [address] [place] [phone] 03/24/2025 11:20 AM CDT Lab Department of Infusion Therapy in [address] [phone] Skip Amaya M.D., Ph.D. [address] [place] [phone] 03/24/2025 1:30 PM CDT Office Visit Department of Oncology in [address] [address] Skip Amaya M.D., Ph.D. [address] [place] [phone] 03/25/2025 7:00 AM CDT Infusion Department of Oncology in [address] [address] Skip Amaya M.D., Ph.D. [address] [place] [phone] 03/29/2025 2:30 PM CDT Clinical Communication Virtual Review in [address] [phone] 04/01/2025 6:00 AM CDT Lab Department of Infusion Therapy in [address] [phone] Skip Amaya M.D., Ph.D. [address] [place] [phone] 04/01/2025 8:20 AM CDT Office Visit Department of Oncology in [address] [address] Precious Hill M.D., Ph.D. [address] [place] [phone] 04/01/2025 9:00 AM CDT Infusion Department of Oncology in [address] [address] Skip Amaya M.D., Ph.D. [address] [place] [phone] 04/07/2025 11:00 AM CDT Lab Department of Infusion Therapy in [place], [place] [address] [place] [phone] Skip Amaya M.D., Ph.D. [address] [place] [phone] 04/07/2025 1:20 PM CDT Office Visit Department of Oncology in [place], [place] [address] [place] [phone] Sandy Judge APRN, C.N.P., M.S. [address] [place] [phone] 04/08/2025 7:00 AM CDT Infusion Department of Oncology in [place], [place] [address] [place] [phone] Skip Amaya M.D., Ph.D. [address] [place] [phone] 04/21/2025 7:15 AM CDT Clinical Communication Virtual Review in [place], [place] 200 [place] [address] 04/22/2025 7:20 AM CDT Lab Department of Infusion Therapy in [place], [place] [address] [place] [phone] Skip Amaya M.D., Ph.D. [address] [place] [phone] 04/22/2025 9:20 AM CDT Office Visit Department of Oncology in [place], [place] [address] [place] [phone] Sandy Judge APRN, C.N.P., M.S. [address] [place] [address] 04/22/2025 10:30 AM CDT Infusion Department of Oncology in [place], [place] [address] [place] [address] Skip Amaya M.D., Ph.D. [address] [place] [phone] Scheduled Referrals Name Type Priority Associated Diagnoses Orde r Schedule Oncology office visit (clinic) Outpatient Referral Routine Malignant Neoplasm Of Pancreas Tail (HCC) Expected: 01/21/2025, Expires: 04/22/2026 documented as of this encounter Goals Goal Patient Goal Type Associated Problems Recent Progress Patient-Stated? Author Autogenerat ed Goal Care Plan Autogenerated Problem No Hedy Lees, R.N. documented as of this encounter Results * ECG 12 Lead (01/21/2025 10:41 AM CDT) Ventricular Rate ECG/Min 82 BPM MUSE NC Interval 130 ms MUSE QRSD Interval 88 ms MUSE QT Interval 420 ms MUSE QTC Interval 490 ms MUSE P [place] 53 degrees MUSE R [place] 42 degrees MUSE T Wave [place] 78 degrees MUSE 01/21/2025 10:4 1 AM CDT 01/21/2025 10:54 AM CDT Impressions MUSE - 01/21/2025 10:54 AM CDT Sinus rhythm Premature ventricular complexes in a pattern of bigeminy Nonspecific ST and T wave abnormality Prolonged QT When compared with ECG of 21-Jan-2025 10:40, Fusion beats are no longer evident Reviewed by KITA Joyce Narrative Procedure Note Desean [place] M.D., Ph.D. - 01/21/2025 IMPRESSION: Sinus rhythm Premature ventricular complexes in a pattern of bigeminy Nonspecific ST and T wave abnormality Prolonged QT When compared with ECG of 18-Brian-2025 10:40, Fusion beats are no longer evident Reviewed by KITA Joyce us Skip Amaya M.D., Ph.D. ECG ORDERABLES Final Re sult Performing Organization Address [facility] de Phone Number MUSE NA * ECG 12 Lead (01/21/2025 10:40 AM CDT) Ventricular Rate ECG/Min 84 BPM MUSE NC Interval 138 ms MUSE QRSD Interval 88 ms MUSE QT Interval 410 ms MUSE QTC Interval 484 ms MUSE P [place] 54 degrees MUSE R [place] 39 degrees MUSE T Wave [place] 70 degrees MUSE 01/21/2025 10:4 0 AM CDT 01/21/2025 10:45 AM CDT Impressions MUSE - 01/21/2025 10:45 AM CDT Sinus rhythm Multifocal Premature ventricular complexes Possibly Fusion complexes Nonspecific ST and T wave abnormality Prolonged QT When compared with ECG of 21-Jan-2025 10:39, No significant change was found Reviewed by KITA Joyce Narrative Procedure Note Desean [place] M.D., Ph.D. - 01/21/2025 IMPRESSION: Sinus rhythm Multifocal Premature ventricular complexes Possibly Fusion complexes Nonspecific ST and T wave abnormality Prolonged QT When compared with ECG of 21-Jan-2025 10:39, No significant change was found Reviewed by KITA Joyce Skip Amaya M.D., Ph.D. ECG ORDERABLES Final Re sult Performing Organization Address [facility] de Phone Number MUSE NA * ECG 12 Lead (01/21/2025 10:39 AM CDT) Ventricular Rate ECG/Min 82 BPM MUSE NC Interval 132 ms MUSE QRSD Interval 88 ms MUSE QT Interval 418 ms MUSE QTC Interval 488 ms MUSE P [place] 59 degrees MUSE R [place] 43 degrees MUSE T Wave [place] 78 degrees MUSE 01/21/2025 10:3 9 AM CDT 01/21/2025 10:44 AM CDT Impressions MUSE - 01/21/2025 10:44 AM CDT Sinus rhythm Premature ventricular complexes in a pattern of bigeminy Cannot rule out Inferior infarct Prolonged QT No previous ECGs available Reviewed by KITA Guzmán Narrative Procedure Note Desean [place] M.D., Ph.D. - 01/21/2025 IMPRESSION: Sinus rhythm Premature ventricular complexes in a pattern of bigeminy Cannot rule out Inferior infarct Prolonged QT No previous ECGs available Reviewed by KITA Guzmán us Skip Amaya M.D., Ph.D. ECG ORDERABLES Final Re sult Performing Organization Address City/[facility]/ZIP Co de Phone Number MUSE NA * APTT (Activated Partial Thromboplastin Time) (01/21/2025 7:52 AM CDT) Activated Partial Thrombopl Time, P 27 25 - 37 sec 01/21/2025 8:43 AM CDT DTL Blood (Blood, Venous) 01/21/2025 7:52 AM CDT 01/21/2025 8:21 AM CDT us Skip Amaya M.D., Ph.D. LAB BLOOD ADD-ON Final R esult Performing Organization Address City/[facility]/ZIP Co de Phone Number [facility] [address] [place] [address], [facility] DTL [facility] [address] [place] [address] * Prothrombin Time (PT) (01/21/2025 7:52 AM [...] ADD-ON Final R esult Performing Organization Address City/[facility]/ZIP Co de Phone Number [facility] [address] [place] [address] * Phosphorus Inorganic (01/21/2025 7:51 AM CDT) Phosphorus (Inorganic), S 3.5 2.5 - 4.5 mg/dL 01/21/2025 8:57 AM CDT DTL Blood (Blood, Venous) 01/21/2025 7:51 AM CDT 01/21/2025 8:21 AM CDT us Skip Amaya M.D., Ph.D. LAB BLOOD ADD-ON Final R esult Performing Organization Address City/[facility]/ZIP Co de Phone Number [facility] [address] [place] [address] * Magnesium (01/21/2025 7:51 AM CDT) Magnesium, S 2.1 1.7 - 2.3 mg/dL 01/21/2025 8:57 AM CDT DTL Blood (Blood, Venous) 01/21/2025 7:51 AM CDT 01/21/2025 8:21 AM CDT us Skip Amaya M.D., Ph.D. LAB BLOOD ADD-ON Final R esult [facility] [address] [place] [address] * LD (Lactate Dehydrogenase) (01/21/2025 7:51 AM CDT) [facility] LD 144 122 - 222 U/L 01/21/2025 9:14 AM CDT DTL Blood (Blood, Venous) 01/21/2025 7:51 AM CDT 01/21/2025 8:20 AM CDT Skip Amaya M.D., Ph.D. LAB BLOOD NON ADD-ON Fin al Result [facility] [address] [place] [address], [facility] [address] [place] [address] * (ABNORMAL) Comprehensive Metabolic Panel (01/21/2025 7:51 AM CDT) [facility] Potassium, S 4.2 3.6 - 5.2 [...] Ph.D. LAB BLOOD ADD-ON Final R esult [facility] [address] [place] [address], [facility] 200 [place] [address] * (ABNORMAL) CBC with Differential, Blood (01/21/2025 [...] Ph.D. LAB BLOOD ADD-ON Final R esult [facility] [address] [place] [address], [facility] DTL [facility] [address] [place] [address] [facility] [address] [place] [address] * (ABNORMAL) Carbohydrate Antigen 19-9 (CA 19-9) (01/21/2025 7:51 AM CDT) Pathologist [facility] Carbohydrate Ag 19-9, S [address]4827(H) <35 U/mL 01/21/2025 1:01 PM CDT [facility] Comment: ----ADDITIONAL INFORMATION---- The testing method is an immunoenzymatic assay manufactured by [employer] and performed on the [employer] DxI 800. Values obtained with different assay methods or kits may be different and cannot be used interchangeably. Test results cannot be interpreted as absolute evidence for the presence or absence of malignant disease. Blood (Blood, Venous) 01/21/2025 7:51 AM CDT 01/21/2025 11:31 AM CDT Skip Amaya M.D., Ph.D. LAB BLOOD ADD-ON Final R esult [facility] [address] [place] [address] [facility] [address] [place] [address] documented in this encounter Visit Diagnoses Diagnosis Malignant Neoplasm Of Pancreas Tail (HCC)- Primary documented in this encounter Additional Health Concerns Active Problems Noted Date Diagnosed Date Autogenerated Problem 11/16/2024 Infection Onset Date Last Indicated Resolved Time Protective Environment 01/28/2025 01/28/2025 Assessment Noted Time PHQ-9 Depression Total Score: 7 01/12/20 25 9:53 AM CDT documented as of this encounter Care Teams Software Support Specialist Relationship Specialty Start Date End Date Elsewhere, Pcp PCP - General Internal Medicine 09/09/23 documented as of this encounter
[2025-01-30 17:47] VITALS: BP 125/83; PULSE 95; RESP 24; TEMP 37.6; O2SAT 95; BMI 27.2
--- NOTE | 2025-01-30 18:14 | CRLHL7_ITS ---
For Patients: As a result of the Century Cures Act, medical imaging exams and procedure reports are released immediately into your electronic medical record. You may view this report before your referring provider. If you have questions, please contact your health care provider. INDICATION: Epigastric pain. Pancreatic cancer. TECHNIQUE: Multiplanar CT examination of the abdomen and pelvis was performed after the administration of 101 mL Isovue 370 intravenous contrast. COMPARISON: CT abdomen pelvis 03/28/2021. FINDINGS: Lower chest: No focal consolidation. Normal heart size. No pleural effusions or pneumothorax. Subsegmental dependent atelectasis. Coronary arterial calcifications. Liver: New ill-defined 3.2 cm hypodense right hepatic lobe mass. Gallbladder: Unremarkable. Biliary: Unremarkable. Pancreas: New poorly marginated, ill-defined hypodense pancreatic tail mass measuring 4.3 x 3.7 cm. This mass is in close approximation with the descending colon near the splenic flexure, gastric cardia and adjacent spleen, without definite local invasion. There is mild peripancreatic haziness adjacent to the pancreatic tail. Spleen: Unremarkable. Adrenal glands: Unremarkable. Renal/ureters/bladder: Normal in size and symmetrically enhancing. No obstructive uropathy. No hydronephrosis or obstructive urinary calculi. No suspicious renal masses. The ureters appear unremarkable. The bladder is within normal limits. Pelvis: Unremarkable. Gastrointestinal: No bowel wall thickening or bowel obstruction. Normal appendix. No significant colonic diverticulosis. Mild colonic stool burden. Vasculature: No aortic aneurysm. The portal vein remains patent. Moderate to severe aortoiliac atherosclerotic calcifications. Lymph nodes: Prominent retroperitoneal and mckinley hepatis lymph nodes do not meet size criteria for pathologic lymphadenopathy. Peritoneum: No free fluid or pneumoperitoneum. No drainable fluid collections. Abdominal wall/soft tissues: Unremarkable. Bones: No acute osseous abnormalities IMPRESSION: 4.3 x 3.7 cm pancreatic tail neoplasm with concerns of hepatic metastatic disease. Local invasion into the adjacent gastric cardia, spleen and descending colon can not be excluded. There are prominent retroperitoneal and mckinley hepatis lymph nodes, probably metastatic but do not meet size criteria for pathologic lymphadenopathy. Please note that all CT scans at this facility use dose modulation, iterative reconstruction, and/or weight-based dosing when appropriate to reduce radiation dose to as low as reasonably achievable. Dictated by Dany Ha MD @ 01/30/2025 8:14:46 PM (Electronically Signed)
--- NOTE | 2025-01-30 18:18 | ED.GENADULT ---
HPI - General Adult General Chief complaint: Fever Stated complaint: Chemo treatment complications Time Seen by Provider: 01/30/25 17:42 Source: patient and family Mode of arrival: ambulatory Limitations: no limitations History of Present Illness HPI narrative: 69-year-old male presenting today with fever and abdominal discomfort. Abdominal discomfort is located in the epigastric region and does not radiate. Patient has a history of stage IV pancreatic cancer and is undergoing a medical trial. He had his 1st chemotherapy infusion 3 days ago. He was told the potential side effects include nausea, diarrhea and abdominal pain and fever. He does carry around a medical emergency card from this study that states that he should be seen in the event he has a fever of 100.4 or higher, patient states that he had 101.3 temperature today. The card also states to contact the primary risk investigator at [facility]. He states that he had diarrhea yesterday that he treated with Imodium. He has not had a bowel movement today. He denies any urinary symptoms such as increased frequency, urgency or dysuria. He has had very little appetite today with very little p.o. intake. Related Data Home Medications ?Medication ?Instructions ?Recorded ?Confirmed aspirin 81 mg tablet,delayed 81 mg PO DAILY 01/11/22 01/30/25 release bupropion HCl 150 mg 24 hr tablet, 150 mg PO DAILY 01/11/22 01/30/25 extended release bupropion HCl 300 mg 24 hr tablet, 300 mg PO DAILY 01/11/22 01/30/25 extended release escitalopram oxalate 20 mg tablet 20 mg PO DAILY 01/11/22 01/30/25 lorazepam 0.5 mg tablet 0.5 mg PO Q6H PRN 01/11/22 01/30/25 nitroglycerin 0.4 mg sublingual 0.4 mg sublingual PRN 01/11/22 tablet atorvastatin 80 mg tablet 80 mg PO DAILY 08/05/23 01/30/25 sildenafil 100 mg tablet 100 mg PO DAILY PRN 12/20/24 01/30/25 ondansetron HCl 8 mg tablet 8 mg PO 3XD 01/30/25 01/30/25 prochlorperazine maleate 10 mg 10 mg PO Q6H PRN 01/30/25 01/30/25 tablet Allergies Allergy/AdvReac Type Severity Reaction Status Date / Time amoxicillin (From Augmentin) Allergy Intermediate Nausea Verified 01/30/25 19:13 clavulanic acid (From Allergy Intermediate Nausea Verified 01/30/25 19:13 Augmentin) Review of Systems Status of ROS: Reports: 10 or more systems reviewed and unremarkable except as noted in History and below [facility] Medical History Depression, major ?F32.9 - Major depressive disorder, single episode, unspecified (ICD-10) Ventricular tachycardia ?I47.20 - Ventricular tachycardia, unspecified (ICD-10) YARA on CPAP ?G47.33 - Obstructive sleep apnea (adult) (pediatric) (ICD-10) Coronary artery disease ?I25.10 - Atherosclerotic heart disease of [place] coronary artery without angina pectoris (ICD-10) Chronic kidney disease (CKD), stage III (moderate) ?N18.30 - Chronic kidney disease, stage 3 unspecified (ICD-10) Hyperlipidemia ?E78.5 - Hyperlipidemia, unspecified (ICD-10) Hypertension ?I10 - Essential (primary) hypertension (ICD-10) Surgical History Hx of vasectomy ?Z98.52 - Vasectomy status (ICD-10) History of tonsillectomy and adenoidectomy ?Z90.89 - Acquired absence of other organs (ICD-10) Hx of shoulder replacement ?Z96.619 - Presence of unspecified artificial shoulder joint (ICD-10) Stented coronary artery ?Z95.5 - Presence of coronary angioplasty implant and graft (ICD-10) Social History Smoking Status: Never smoker Do you use any of these nicotine containing products: None Second hand tobacco smoke exposure: No How often do you have a drink containing alcohol: monthly or less Alcohol type: beer How many standard drinks containing alcohol do you have on a typical day: 1 or 2 How often do you have six or more drinks on one occasion: Never AUDIT-C Alcohol total score: 1 Non-prescribed substance use: denies use Caffeine: Yes (coke) Exam Narrative: Exam Narrative: Well-nourished well-developed patient, shivering. Alert and oriented x3. Answers questions appropriately. Mood and affect are appropriate. Thoughts are goal oriented and rational. No tangential or magical thinking noted. HEENT: Normocephalic atraumatic. Pupils are equally round reactive to light. Extraocular muscles are intact. Conjunctivae are moist without any icterus noted. Slightly dry mucous membranes. Cardiovascular: Heart is regular rate and rhythm S1 and S2 are present without any murmurs. Lungs: Clear to auscultation bilaterally no wheezes rhonchi or rales are appreciated. Patient takes deep breaths without any discomfort. Abdomen: Soft and nondistended with normal bowel sounds. Patient has epigastric tenderness. Extremities: Bilateral lower extremities are without edema. Skin: Well perfused without any obvious rashes. Const: Vital Signs, click to edit/add: Vital Signs - 24 hr 01/30/25 17:47 01/30/25 19:38 01/30/25 19:42 Temperature 99.7 F H 99.5 F Pulse Rate [Pulse Oximeter] 95 91 Respiratory Rate 24 16 Blood Pressure [Ri ght Upper Arm] 125/83 121/69 Pulse Oximetry 95 86 L 92 Oxygen Delivery Me thod Room Air Room Air Nasal Cannula Oxygen Flow Rate 1 01/30/25 19:44 01/30/25 20:23 Temperature Pulse Rate [Pulse Oximeter] 100 Respiratory Rate 18 Blood Pressure [Ri ght Upper Arm] Pulse Oximetry 92 92 Oxygen Delivery Me thod Nasal Cannula Room Air Oxygen Flow Rate 1 Course Course ED Course: I did contact the number on his medical emergency card and it sent me to the oncology clinic which is closed after hours in the evenings in on the weekends. I then did page through the call center the oncology team. Given his discomfort he did receive IV fentanyl which helped his pain. This did drop his oxygen saturation temporarily into the upper 80s. He was placed on 1 L nasal cannula. He was subsequently weaned off of the oxygen. In the meantime IV established and patient is given IV fluids, Zofran fentanyl and Tylenol. Labs were drawn. White cell count slightly elevated at 12.68, 83.4% neutrophils. Chemistries are unremarkable. Lactate elevated at 3.3, CRP elevated at 6.7. Alkaline phosphatase slightly elevated at 175, normal bilirubin lesions. UA shows trace blood and 5-10 rbc's. triple swab negative. I did speak to Dr. Flores, oncology team as [place], who recommended we worked him up as we would any other patient. His abdominal CT scan does show pancreatic cancer. I do not have a more previous CT to compare this to. Patient's symptoms do not get higher than 99.7 while he was here. After one L of fluids, lactate return to normal at 1.5. Upon reexamination patient sitting up in a chair feeling much better he no longer has made any discomfort, he is not shivering. He is requesting discharge. Vital Signs Vital signs: Initial Vital Signs Temperature 99.7 F H 01/30/25 17:47 Temperature Source Oral 01/30/25 17:47 Pulse Rate 95 01/30/25 17:47 Respiratory Rate 24 01/30/25 17:47 Blood Pressure 125/83 01/30/25 17:47 Blood Pressure Mean 97 01/30/25 17:47 Blood Pressure Position Sitting 01/30/25 17:47 Pulse Oximetry 95 01/30/25 17:47 Oxygen Delivery Method Room Air 01/30/25 17:47 Vital Signs Temperature 99.7 F H 01/30/25 17:47 Pulse Rate 95 01/30/25 17:47 Respiratory Rate 24 01/30/25 17:47 Blood Pressure 125/83 01/30/25 17:47 Pulse Oximetry 95 01/30/25 17:47 Oxygen Delivery Method Room Air 01/30/25 17:47 Temperature 99.5 F 01/30/25 19:38 Pulse Rate 100 01/30/25 20:23 Respiratory Rate 18 01/30/25 20:23 Blood Pressure 121/69 01/30/25 19:38 Pulse Oximetry 92 01/30/25 20:23 Oxygen Delivery Method Room Air 01/30/25 20:23 Oxygen Flow Rate 1 01/30/25 19:44 Medications Administered Medications: Discontinued Medications Generic Name Dose Route Start Last Admin Trade Name Óscarq PRN Reason Stop Dose Admin Acetaminophen 1,000 mg 01/30/25 18:15 01/30/25 18:54 Acetaminophen 500 Mg Tablet PO 01/30/25 18:16 1,000 mg ONCE ONE Administration Fentanyl 50 mcg 01/30/25 18:14 01/30/25 18:53 Fentanyl 100 Mcg/2 Ml Inj IVP 01/30/25 18:15 50 mcg ONCE ONE Administration Sodium Chloride 1,000 mls @ 1,000 mls/hr 01/30/25 18:15 01/30/25 20:45 0.9 % Sodium Chloride 1000 Ml IV 01/30/25 19:14 Infused .Q1H MARIANELA Infusion Medical Decision Making MDM Narrative Medical decision making narrative: 69-year-old male with epigastric pain, fever, poor appetite and diarrhea after her 1st chemo treatment. According to his hand out these are expected side effects. On presentation today he did have a slightly elevated white cell count, he remained afebrile throughout his ER stay and pain subsided with treatment. I did attempt to consult Dr. Flores with patient's workup results but [facility] never returned our phone call. There is no acute evidence of infection and his abdominal CT. His lactate did improve after fluids. Recommend patient follow up within 24 hours. Lab Data Lab results reviewed: Yes I reviewed the patient's lab results Labs: Lab Results 01/30/25 01/30/25 01/30/25 Range/Units 17:56 18:17 18:36 WBC 12.68 H (4.50-11.00) K/uL RBC 4.75 (4.30-5.90) m/uL Hgb 14.3 (13.5-17.5) gm/dL Hct 42.9 (37.0-53.0) % MCV 90 (80-100) fL MCH 30 (26-34) pg MCHC 33 (32-36) gm/dL RDW Coeff of Rosie 12.9 (11.5-15.5) % Plt Count 159 (140-440) K/uL Neut % (Auto) 83.4 H (42.0-72.0) % Lymph % (Auto) 12.9 L (20-44) % Wirt % (Auto) 2.4 (0.0-11.0) % Eos % (Auto) 0.9 (0.0-7.0) % Baso % (Auto) 0.3 (0.0-3.0) % Neut # (Auto) 10.60 H (1.7-7.0) K/uL Lymph # (Auto) 1.60 (0.90-2.90) K/uL Wirt # (Auto) 0.30 (0.00-0.90) K/UL Eos # (Auto) 0.10 (0.00-0.50) K/uL Baso # (Auto) 0.00 (0.00-0.30) K/uL Abs Immat Gran (auto) 0.00 (0.00-0.30) K/uL Imm/Tot Granulo (auto) 0.1 % INR 1.02 (0.91-1.10) Sodium 136 (135-149) mmol/L Potassium 4.5 (3.6-5.1) mmol/L Chloride 101 (96-114) mmol/L Carbon Dioxide 25 (20-32) mmol/L Anion Gap 10 (7-15) mEq/L BUN 13 (7-30) mg/dL Creatinine 1.3 (0.5-1.5) mg/dL Estimated Creat Clear 59.75 Estimated GFR 59 ml/min Glucose 106 (60-115) mg/dL Lactate 3.3 H (0.5-1.9) mmol/L Calcium 9.1 (8.4-10.6) mg/dL Total Bilirubin 1.3 (0.1-1.5) mg/dL Direct Bilirubin 0.0 (0.0-0.5) mg/dL AST 47 H (12-35) U/L ALT 40 (4-50) U/L Alkaline Phosphatase 175 H (40-150) U/L Troponin I < 0.01 (0.01-0.04) ng/mL C-Reactive Protein 6.7 H (0.5-1.0) mg/dL Total Protein 7.1 (6.0-8.3) g/dL Albumin 4.2 (3.3-5.0) g/dL Lipase 113 (23-300) U/L Procalcitonin 0.09 (<0.50) ng/mL Urine Color Yellow (Yellow) Urine Appearance Clear (Clear) Urine pH 7.5 (5.0-8.5) Ur Specific [place] 1.020 (1.000-1.030) Urine Protein Negative (Negative) Urine Glucose (UA) Negative (Negative) Urine Ketones Negative (Negative) Urine Blood Trace-lysed A (Negative) Urine Nitrite Negative (Negative) Urine Bilirubin Negative (Negative) Urine Urobilinogen 0.2 (0.2-1.0) Ur Leukocyte Esterase Negative (Negative) Urine RBC 5-10 A (0-2) Urine WBC 0-2 (0-5) Ur Squamous Epith Cells None (None-Few) Urine Bacteria None (None) SARS-CoV-2 (PCR) Negative SARS-CoV-2 (Negative) Influenza Type A (PCR) Negative PCR FLU A (Negative) Influenza Type B (PCR) Negative PCR FLU B (Negative) RSV (PCR) Negative PCR RSV (Negative) 01/30/25 Range/Units 21:06 WBC (4.50-11.00) K/uL RBC (4.30-5.90) m/uL Hgb (13.5-17.5) gm/dL Hct (37.0-53.0) % MCV (80-100) fL MCH (26-34) pg MCHC (32-36) gm/dL RDW Coeff of Rosie (11.5-15.5) % Plt Count (140-440) K/uL Neut % (Auto) (42.0-72.0) % Lymph % (Auto) (20-44) % Wirt % (Auto) (0.0-11.0) % Eos % (Auto) (0.0-7.0) % Baso % (Auto) (0.0-3.0) % Neut # (Auto) (1.7-7.0) K/uL Lymph # (Auto) (0.90-2.90) K/uL Wirt # (Auto) (0.00-0.90) K/UL Eos # (Auto) (0.00-0.50) K/uL Baso # (Auto) (0.00-0.30) K/uL Abs Immat Gran (auto) (0.00-0.30) K/uL Imm/Tot Granulo (auto) % INR (0.91-1.10) Sodium (135-149) mmol/L Potassium (3.6-5.1) mmol/L Chloride (96-114) mmol/L Carbon Dioxide (20-32) mmol/L Anion Gap (7-15) mEq/L BUN (7-30) mg/dL Creatinine (0.5-1.5) mg/dL Estimated Creat Clear Estimated GFR ml/min Glucose (60-115) mg/dL Lactate 1.5 (0.5-1.9) mmol/L Calcium (8.4-10.6) mg/dL Total Bilirubin (0.1-1.5) mg/dL Direct Bilirubin (0.0-0.5) mg/dL AST (12-35) U/L ALT (4-50) U/L Alkaline Phosphatase (40-150) U/L Troponin I (0.01-0.04) ng/mL C-Reactive Protein (0.5-1.0) mg/dL Total Protein (6.0-8.3) g/dL Albumin (3.3-5.0) g/dL Lipase (23-300) U/L Procalcitonin (<0.50) ng/mL Urine Color (Yellow) Urine Appearance (Clear) Urine pH (5.0-8.5) Ur Specific [place] (1.000-1.030) Urine Protein (Negative) Urine Glucose (UA) (Negative) Urine Ketones (Negative) Urine Blood (Negative) Urine Nitrite (Negative) Urine Bilirubin (Negative) Urine Urobilinogen (0.2-1.0) Ur Leukocyte Esterase (Negative) Urine RBC (0-2) Urine WBC (0-5) Ur Squamous Epith Cells (None-Few) Urine Bacteria (None) SARS-CoV-2 (PCR) (Negative) Influenza Type A (PCR) (Negative) Influenza Type B (PCR) (Negative) RSV (PCR) (Negative) Imaging Data CT scan - abdomen: Attestation: I have reviewed the pertinent imaging results. Radiologist's impression: TECHNIQUE: Multiplanar CT examination of the abdomen and pelvis was performed after the administration of 101 mL Isovue 370 intravenous contrast. COMPARISON: CT abdomen pelvis 03/28/2021. FINDINGS: Lower chest: No focal consolidation. Normal heart size. No pleural effusions or pneumothorax. Subsegmental dependent atelectasis. Coronary arterial calcifications. Liver: New ill-defined 3.2 cm hypodense right hepatic lobe mass. Gallbladder: Unremarkable. Biliary: Unremarkable. Pancreas: New poorly marginated, ill-defined hypodense pancreatic tail mass measuring 4.3 x 3.7 cm. This mass is in close approximation with the descending colon near the splenic flexure, gastric cardia and adjacent spleen, without definite local invasion. There is mild peripancreatic haziness adjacent to the pancreatic tail. Spleen: Unremarkable. Adrenal glands: Unremarkable. Renal/ureters/bladder: Normal in size and symmetrically enhancing. No obstructive uropathy. No hydronephrosis or obstructive urinary calculi. No suspicious renal masses. The ureters appear unremarkable. The bladder is within normal limits. Pelvis: Unremarkable. Gastrointestinal: No bowel wall thickening or bowel obstruction. Normal appendix. No significant colonic diverticulosis. Mild colonic stool burden. Vasculature: No aortic aneurysm. The portal vein remains patent. Moderate to severe aortoiliac atherosclerotic calcifications. Lymph nodes: Prominent retroperitoneal and mckinley hepatis lymph nodes do not meet size criteria for pathologic lymphadenopathy. Peritoneum: No free fluid or pneumoperitoneum. No drainable fluid collections. Abdominal wall/soft tissues: Unremarkable. Bones: No acute osseous abnormalities IMPRESSION: 4.3 x 3.7 cm pancreatic tail neoplasm with concerns of hepatic metastatic disease. Local invasion into the adjacent gastric cardia, spleen and descending colon can not be excluded. There are prominent retroperitoneal and mckinley hepatis lymph nodes, probably metastatic but do not meet size criteria for pathologic lymphadenopathy. Discharge Plan Discharge Clinical Impression: Abdominal pain, Fever, Pancreatic cancer Patient Disposition: Home, Self-Care Condition: Stable Additional Instructions: Recommend you contact your oncology team 1st thing in the morning to discuss your ER visit, your symptoms and to schedule follow-up. If your symptoms worsen, return to the ER. You should follow-up with your oncology team or your primary care provider within 24 hours. Prescriptions: No Action atorvastatin 80 mg tablet 80 mg PO DAILY aspirin 81 mg tablet,delayed release (DR/EC) 81 mg PO DAILY lorazepam 0.5 mg tablet 0.5 mg PO Q6H PRN nitroglycerin 0.4 mg tablet, sublingual 0.4 mg sublingual PRN Patient Comments: ONE TABLET UNDER TONGUE NEEDED FOR CHEST PAIN EVERY 5 MINUTES escitalopram oxalate 20 mg tablet 20 mg PO DAILY bupropion HCl 300 mg tablet extended release 24 hr 300 mg PO DAILY bupropion HCl 150 mg tablet extended release 24 hr 150 mg PO DAILY sildenafil 100 mg tablet 100 mg PO DAILY PRN ondansetron HCl 8 mg tablet 8 mg PO 3XD prochlorperazine maleate 10 mg tablet 10 mg PO Q6H PRN Follow Up/Referrals: Lexie Dale PA-C [Primary Care Provider, Family Practice] Stand Alone Forms: [employer] Info Instructions
[2025-01-30 18:21] LABS: Lactate* 3.3 mmol/L (0.5-1.9)
[2025-01-30 18:26] LABS: Hematocrit 42.9 % (37.0-53.0); Hemoglobin* 14.3 gm/dL (13.5-17.5); Immature Granulocytes Pct Auto 0.1 %; Mean Corpuscular HGB Conc 33 gm/dL (32-36); Mean Corpuscular Hemoglobin 30 pg (26-34); Mean Corpuscular Volume 90 fL (80-100); RDW Coefficient of Variation % 12.9 % (11.5-15.5); Red Blood Count 4.75 m/uL (4.30-5.90); White Blood Count* 12.68 K/uL (4.50-11.00)
[2025-01-30 18:29] LABS: Immature Granulocytes Abs Auto 0.00 K/uL (0.00-0.30); Lymphocytes Absolute Auto 1.60 K/uL (0.90-2.90); Slide Review Reflex No
[2025-01-30 18:45] LABS: Appearance Urine Clear (Clear)
[2025-01-30 18:48] LABS: PCR FLU A Negative PCR FLU A (Negative); PCR FLU B Negative PCR FLU B (Negative); PCR RSV Negative PCR RSV (Negative); SARS PCR* Negative SARS-CoV-2 (Negative)
[2025-01-30 18:50] LABS: Albumin* 4.2 g/dL (3.3-5.0); Chloride* 101 mmol/L (96-114); Potassium* 4.5 mmol/L (3.6-5.1); Sodium* 136 mmol/L (135-149)
[2025-01-30 18:52] LABS: INR 1.02 (0.91-1.10); Prothrombin Time 14.2 Seconds
[2025-01-30 18:53] LABS: Alanine Aminotransferase* 40 U/L (4-50); Alkaline Phosphatase* 175 U/L (40-150); Anion Gap 10 mEq/L (7-15); Aspartate Amino Transferase* 47 U/L (12-35); Bilirubin Direct* 0.0 mg/dL (0.0-0.5); Bilirubin Total* 1.3 mg/dL (0.1-1.5); Blood Urea Nitrogen* 13 mg/dL (7-30); Carbon Dioxide* 25 mmol/L (20-32); Creatinine* 1.3 mg/dL (0.5-1.5); Est. Creatinine Clearance* 59.75; Estimated Glomerular Filt Rate 59 ml/min; Total Protein* 7.1 g/dL (6.0-8.3)
[2025-01-30 18:54] LABS: Calcium* 9.1 mg/dL (8.4-10.6); Glucose* 106 mg/dL (60-115)
[2025-01-30] MEDS: ACETAMINOPHEN 500 MG TABLET 1000 MG PO (18:54)
[2025-01-30 19:10] LABS: Procalcitonin* 0.09 ng/mL (<0.50)
[2025-01-30 19:38] VITALS: BP 121/69; PULSE 91; RESP 16; TEMP 37.5; O2SAT 86
[2025-01-30 19:42] VITALS: O2SAT 92
[2025-01-30 19:44] VITALS: O2SAT 92
[2025-01-30 20:23] VITALS: PULSE 100; RESP 18; O2SAT 92
[2025-01-30 21:11] LABS: Lactate* 1.5 mmol/L (0.5-1.9)
[2025-01-30] MEDS: HEPARIN 500 UNIT/5 ML SYRINGE IVF (21:32)
== END 2025-01-30 21:31 | disposition home or self-care (01) ==
PROVIDERS: Emergency Provider Family Medicine; PCP Physician Assistant Medical
DX: R50.9 Fever, unspecified (principal); K85.90 Acute pancreatitis without necrosis or infection, unspecified; R10.9 Unspecified abdominal pain
CPT/HCPCS: 36415; 74177; 80048; 80076; 81001; 83605; 83690; 84145; 84484; 85025; 85610; 86140; 87040; 87086; 87631; 96374; 99285; A9270; J1642; J3010; J7030; Q9967

== ENCOUNTER 2025-02-06 12:41 | Emergency (ER) | payer MEDICARE, BC, SELFPAY ==
--- OUTSIDE RECORDS SUMMARY | 2024-12-24 15:00 | XMS_ITS | Encounter Summary ---
Author Organization [facility] Address [address] [place] [id number] Care Team Providers Care Pourer Buggy Ladle Name Role Phone Elsewhere, Pcp Primary Care Provider Unavailabl e Reason for Referral * Outpatient (Routine) - Closed Specialty Diagnoses / Procedures Referred By Contac t Referred To Contact Diagnoses Malignant Neoplasm Of Pancreas Adenocarcinoma (HCC) Mass Pancreas Procedures US Liver Biopsy Drea Means APRN, C.N.P., D.N.P. [address] [place] [address] Phone: tel: fax: [facility] Referral ID Status Reason Start Date Expiration Date Visits Re quested Visits Authorized [id number] Closed 12/27/2024 03/29/2026 1 1 * Outpatient (Routine) - Closed Specialty Diagnoses / Procedures Referred By Contac t Referred To Contact Clinical Genomics Diagnoses Mass Pancreas Aleena Moreira M.D. 200 [place] [address] Phone: tel: fax: [facility] Referral ID Status Reason Start Date Expiration Date Visits Re quested Visits Authorized [id number] Closed 12/24/2024 06/25/2026 1 1 * Outpatient (Routine) - Closed Specialty Diagnoses / Procedures Referred By Meeta carlisle Referred To Contact Medical Oncology / Oncology Diagnoses Mass Pancreas Aleena Moreira M.D. [address] [place] [phone] Phone: tel: fax: [facility] Referral ID Status Reason Start Date Expiration Date Visits Re quested Visits Authorized [id number] Closed 12/24/2024 06/25/2026 1 1 * MRI/CAT/PET Scan (Routine) - Closed Specialty Diagnoses / Procedures Referred By Meeta carlisle Referred To Contact Radiology Diagnoses Mass Pancreas Procedures CT Pancreas Angiogram Triple Phase and Pelvis with IV Contrast Aleena Moreira M.D. 200 [place] [address] Phone: tel: fax: [facility] Referral ID Status Reason Start Date Expiration Date Visits Re quested Visits Authorized [id number] Closed 12/24/2024 03/26/2026 1 1 Reason for Visit * Outpatient (Routine) - Authorized Specialty Diagnoses / Procedures Referred By Meeta carlisle Referred To Contact Diagnoses Malignant Neoplasm Of Pancreas [facility] Referral ID Status Reason Start Date Expiration Date V isits Requested Visits Authorized [id number] Authorized 12/23/2024 06/24/2026 1 1 Encounter Details Date Type Department Care Team (Latest Contact Info) Description 12/24/2024 3:00 PM CDT Virtual Visit Division of Gastroenterology in [place], [place] [address] [place] [phone] Rodriguez Butts, M.S.N., R.N. Mass Pancreas (Primary Dx); Malignant Neoplasm Of Pancreas Adenocarcinoma (HCC) Social History Tobacco Use Types Packs/Day Years Used Date Smoking Tobacco: Never Passive Smoke Exposure: Past Smokeless Tobacco: Never Passive Exposure Comments:Ch ildhood exposure. Alcohol Use Standard Drinks/Week Comments Not Currently 1 (1 standard drink = 0.6 oz pur e alcohol) 0-1 drink per week [facility] Utilities Answer Date Recorded In the past 12 months has th e electric, gas, oil, or water company threatened to shut off services in your home? No 12/23/2024 Hunger Vital Sign Answer Date Recorded Within the past 12 months, y ou worried that your food would run out before you got the money to buy more. Never true 12/24/19 25 Within the past 12 months, t he food you bought just didn't last and you didn't have money to get more. Never true 12/23/2024 PRAPARE - Transportation Answer Date Re corded In the past 12 months, has l ack of transportation kept you from medical appointments or from getting medications? No 12/05 In the past 12 months, has l ack of transportation kept you from meetings, work, or from getting things needed for daily living? No 12/23/2024 Housing Stability Answer Date Recorded What is your living situation today? I have a [facility] place to live 12/23/2024 Sex and Gender Information Value Date Recorded Sex Assigned at Male 09/10/2023 7:48 AM SQL ETL DEVELOPER Legal Sex Male 10:11 PM SQL ETL DEVELOPER Gender Identity Male 09/10/2023 7:48 AM SQL ETL DEVELOPER Sexual Orientation Straight 09/10/2023 7: 48 AM SQL ETL DEVELOPER documented as of this encounter H&P Notes * Rodriguez Butts M.S.N., R.N. - 12/24/2024 3:00 PM CDT Reason for Visit Gastroenterology and Hepatology: Pancreas Clinic RN Pre-Visit. Patient contacted [facility] requesting on-campus appointment; pre-visit was scheduled following that request. Completed administrative pre-visit discussion to better understand patient goals and the needed patient itinerary for the requested on-site visit. This pre-visit does not establish a long-term relationship. This interview occurred via phone call by Loi Bauer., R.N. at [facility] to the patient in the patient's home. The information below is based on review of available medical records and a virtual conversation with the patient. History of Present Illness Mr. Mata is a 69 y.o. male who is being interviewed for a pre-visit encounter. He is accompaniedby his spouse. Our records indicate that Mr. Mata was referred to [facility] for a pancreatic mass. Noel reports seeking evaluation on 12/21/2024 for abdominal pain that radiated to his back. About 3months prior to this, he was experiencing more fatigue that they initially attributed to his history of coronary artery disease with stent placement. He had an ultrasound followed by a CT of the abdomen. CT noted a low- density lesion in the pancreatic tail measuring approximately 4.5 cm. It additionally noted an ill-defined low-density lesion in the liver measuring approximately 4 cm, an additional low-density lesion in the wall of the stomach near the fundus posteriorly, and a few indeterminate enlarged lymph nodes in the upper abdomen. He had a chest CT on 12/23/2024, which noted a minimallyincreased indeterminate right lower lobe pulmonary nodule measuring 9 mm. Noel has a biopsy scheduled locally at [facility] on 12/30/2024. He intends to keep this appointment, as well as his scheduled Oncology appointment with [facility] on 01/04/2025 depending on appointment availability here. He would liketo have appointments as soon as possible. The patient states goals for this visit are for diagnosis and treatment. Current symptoms: - Abdominal pain: RUQ pain, decreased appetite. - Indigestion: Occasionally - Back Pain: Previously, this has now resolved - Stool changes to pattern/consistency: A bowel movement every 1-2 days. - Weight loss: 20 pounds in last year - Jaundice: Denies Imaging: Requested? Yes Received? Yes 12/23/2024 CT Chest with IV Contrast Impression: Minimally increased indeterminate right lower lobe pulmonary nodule measuring 9 mm, previously [address] from 02/18/2024. Metastatic disease is difficult to exclude. No lymphadenopathy or suspicious osseous lesions. Pancreatic tail cystic mass and suspected gastric and hepatic metastases are better evaluated on recently performed CT abdomen and pelvis. 12/21/2024 CT Abdomen Pelvis with IV Contrast Impression: No CT evidence of an acute process involving the abdomen or pelvis. There is a low-density lesion in the pancreatic tail measuring approximately 4.5 centimeters in greatest dimension, somewhat cystic in appearance, concerning for pancreatic adenocarcinoma versus a pancreatic cystic neoplasm. Recommend further assessment with an outpatient abdominal MRI with a pancreatic protocol. Ill-defined low-density lesion in hepatic segment 6 measuring approximately 4.0 centimeters in greatest dimension, favored to represent a metastatic lesion. Additional low-density lesion in the wall of the stomach near the fundus posteriorly, also concerning for a metastatic lesion. There are few indeterminate, non pathologically enlarged lymph nodes in the upper abdomen. 12/21/2024 US Abdomen Limited Impression: No evidence of cholelithiasis or cholecystitis. Mild hepatic steatosis with heterogeneous lesion within the right lobe of the liver measuring up to5.5 centimeters[address] Abdomen and pelvis CT scan with IV contrast recommended for further characterization. Prior procedures within 18 months: Denies Labs: 12/23/2024 Alkaline Phosphatase: 189* U/L AST: 24 U/L ALT: 22 U/L Bilirubin: 0.9 mg/dL 12/21/2024 Ca 19-9: 15,462* U/mL History of any renal impairment: CKD Stage 3. 12/23/2024 Creatinine: 1.51* mg/dL; eGFR 49*. Past medical history: seasonal affective disorder, depression, coronary artery disease, stage 3a chronic kidney disease, hypertension, insomnia, hyperlipidemia, allergic rhinitis, obstructive sleep apnea on CPAP, gout Prior abdominal surgery or weight loss surgery: Denies Personal history of pancreaticobiliary benign or malignant disease (y/n) and if so, please list: Denies Use of blood thinners: Plavix 75 mg, ASA 81 mg Indication: CAD *Noel took his last dose on the morning of 12/23/2024. He has been instructed by his local care team to hold this until he has a biopsy. Severe cardiac or pulmonary disease (Pacemaker?): CAD with cardiac stent Does the patient have any devices, implants, or injuries involving metal? Cardiac stent, deep brainstimulator, right shoulder reconstruction Claustrophobia/contraindications to imaging: Denies Patient information will be shared with the pancreas care team to determine a plan for the patient.Patient informed we may contact their prior care facilities to obtain further records for their diagnosis and past history, specifically pathology reports and biopsy slides, CT's, and/or MRI images. There could be a charge for this review. Patient agrees with this request. Informed patient that following discussion of a plan our scheduling team will contact him within approximately one to two weeks to discuss appointment scheduling. Patient to continue to direct health-related questions to local care provider until seen for consultation appointment. Local GI Provider: PCP - [facility] The following information also shared with the patient: Patient aware and agreeable to charges for re-reads of externally completed imaging. documented in this encounter Miscellaneous Notes * Addendum Note - Rodriguez Butts M.S.N., R.N. - 12/24/2024 3:00 PM CDTAddended by: RODRIUGEZ BUTTS on: 12/24/2024 03:19 PM Modules accepted: Orders * Addendum Note - Aleena Moreira M.D. - 12/24/2024 3:00 PM CDTAddended by: ALEENA MOREIRA on: 12/24/2024 04:10 PM Modules accepted: Orders * Addendum Note - Audrey Huerta R.N. - 12/24/2024 3:00 PM CDTAddended by: AUDREY HUERTA on: 12/27/2024 08:06 AM Modules accepted: Orders * Addendum Note - Drea Means APRN, C.N.P., D.N.P. - 12/24/2024 3:00 PM CDT Addended by: DREA MEANS on: 12/27/2024 08:20 AM Modules accepted: Orders * Addendum Note - Audrey Huerta R.N. - 12/24/2024 3:00 PM CDTAddended by: AUDREY HUERTA on: 12/27/2024 08:51 AM Modules accepted: Orders * Addendum Note - Audrey Huerta RRed. - 12/24/2024 3:00 PM CDTAddended by: AUDREY HUERTA on: 12/27/2024 08:56 AM Modules accepted: Orders documented in this encounter Plan of Treatment Upcoming Encounters Date Type Department Care Team (Latest Contact Info) Description 02/08/2025 2:15 PM CDT Clinical Communication Virtual Review in [place], [place] 200 [place] [address] 02/09/2025 9:30 AM CDT Telemedicine Department of Oncology in [address] [phone] Jesica Wasserman M.B., B.Ch. [address] [place] [phone] Cecily Nash, John.I.C.S.W. [address] [place] [phone] 02/10/2025 12:00 PM CDT Lab Department of Infusion Therapy in [address] [phone] Skip Amaya M.D., Ph.D. [address] [place] [phone] 02/10/2025 2:30 PM CDT Office Visit Department of Oncology in [address] [phone] Rosenda Garza, KRISHNAS, P.A.-C. [address] [place] [phone] 02/11/2025 8:00 AM CDT Infusion Department of Oncology in [place], [place] [address] [place] [phone] Skip mAaya M.D., Ph.D. [address] [place] [phone] 02/23/2025 2:15 PM CDT Clinical Communication Virtual Review in [place], [place] 200 [place] [address] 02/25/2025 8:30 AM CDT Lab Department of Oncology in [place], [place] [address] [place] [phone] Skip Amaya M.D., Ph.D. [address] [place] [phone] 02/25/2025 10:40 AM CDT Office Visit Department of Oncology in [place], [place] [address] [place] [phone] Sandy Judge, KASH, C.N.P., M.S. [address] [place] [phone] 02/25/2025 11:30 AM CDT Infusion Department of Oncology in [address] [phone] Skip Amaya M.D., Ph.D. [address] [place] [phone] 03/04/2025 6:00 AM CDT Lab Department of Infusion Therapy in [address] [phone] Skip Amaya M.D., Ph.D. [address] [place] [phone] 03/04/2025 8:10 AM CDT Office Visit Department of Oncology in [place], [place] [address] [place] [phone] Jie Shook P.A.-C. [address] [place] [phone] 03/04/2025 9:30 AM CDT Infusion Department of Oncology in [place], [place] [address] [place] [phone] Skip Amaya M.D., Ph.D. [address] [place] [phone] 03/10/2025 2:15 PM CDT Clinical Communication Virtual Review in [place], [place] 200 [place] [address] 03/11/2025 6:00 AM CDT Lab Department of Laboratory Medicine and Pathology, [facility] in [place], [place] [address] [place] [phone] Skip Amaya M.D., Ph.D. [address] [place] [phone] 03/11/2025 7:20 AM CDT Office Visit Department of Oncology in [place], [place] [address] [place] [phone] Bipin Leal P.A.-C., M.S. [address] [place] [phone] 03/11/2025 8:00 AM CDT Infusion Department of Oncology in [place], [place] [address] [place] [phone] Skip Amaya M.D., Ph.D. [address] [place] [phone] 03/24/2025 7:30 AM CDT Appointment Department of Radiology, [facility] in [place], [place] [address] [place] [phone] Skip Amaya M.D., Ph.D. [address] [place] [phone] 03/24/2025 11:20 AM CDT Lab Department of Infusion Therapy in [place], [place] [address] [place] [phone] Skip Amaya M.D., Ph.D. [address] [place] [phone] 03/24/2025 1:30 PM CDT Office Visit Department of Oncology in [address] [phone] Skip Amaya M.D., Ph.D. [address] [place] [phone] 03/25/2025 7:00 AM CDT Infusion Department of Oncology in [address] [phone] Skip Amaya M.D., Ph.D. [address] [place] [phone] 03/29/2025 2:30 PM CDT Clinical Communication Virtual Review in [place], [place] 200 [place] [address] 04/01/2025 6:00 AM CDT Lab Department of Infusion Therapy in [address] [phone] Skip Amaya M.D., Ph.D. [address] [place] [phone] 04/01/2025 8:20 AM CDT Office Visit Department of Oncology in [address] [phone] Precious Hill M.D., Ph.D. [address] [place] [phone] 04/01/2025 9:00 AM CDT Infusion Department of Oncology in [place], [place] [address] [place] [phone] Skip Amaya M.D., Ph.D. [address] [place] [phone] 04/07/2025 11:00 AM CDT Lab Department of Infusion Therapy in [address] [phone] Skip Amaya M.D., Ph.D. [address] [place] [phone] 04/07/2025 1:20 PM CDT Office Visit Department of Oncology in [address] [phone] Sandy Judge, KASH, C.N.P., M.S. [address] [place] [phone] 04/08/2025 7:00 AM CDT Infusion Department of Oncology in [address] [address] Skip Amaya M.D., Ph.D. [address] [place] [phone] 04/21/2025 7:15 AM CDT Clinical Communication Virtual Review in [place], [place] 200 [place] [address] 04/22/2025 7:20 AM CDT Lab Department of Infusion Therapy in [address] [phone] Skip Amaya M.D., Ph.D. [address] [place] [phone] 04/22/2025 9:20 AM CDT Office Visit Department of Oncology in [place], [place] [address] [place] [phone] Sandy Judge APRN, C.N.P., M.S. [address] [place] [phone] 04/22/2025 10:30 AM CDT Infusion Department of Oncology in [place], [place] [address] [place] [phone] Skip Amaya M.D., Ph.D. [address] [place] [phone] 04/29/2025 11:15 AM CDT Lab Department of Oncology in [place], [place] [address] [place] [phone] Skip Amaya M.D., Ph.D. [address] [place] [phone] 04/29/2025 1:20 PM CDT Office Visit Department of Oncology in [address] [phone] Sandy Judge APRN, C.N.P., M.S. [address] [place] [phone] 04/29/2025 2:00 PM CDT Infusion Department of Oncology in [address] [phone] Skip Amaya M.D., Ph.D. [address] [place] [phone] Scheduled Referrals Name Type Priority Associated Diagnoses Order Schedule Oncology - Medical, GI consult (clinic) Outpatient Referral Routine Mass Pancreas Expected: 12/24/2024, Expires: 03/26/2026 Clinical Genomics - Cancer clinic counseling consult (clinic) Outpatient Referral Routine Mass Pancreas Expected: 12/24/2024 (Approximate), Expires: 03/26/2026 documented as of this encounter Goals Goal Patient Goal Type Associated Problems Recent Progress Patient-Stated? Author Autogenerat ed Goal Care Plan Autogenerated Problem No Hedy Lees R.N. documented as of this encounter Results * US Liver Biopsy (12/30/2024 11:29 AM CDT) Anatomical Region Laterality Modality Abdomen, Ultrasound RST LOS, Ultrasound ARZ LOS, Procedure FLA LOS, Abdominal FLA LOS, Procedural, Procedural NWWI LOS N/A Ultrasound Impressions 12/30/2024 11:34 AM CDT Ultrasound-guided hepatic mass core biopsy. NR Narrative 12/30/2024 11:34 AM CDT EXAM: US LIVER BIOPSY PRE-PROCEDURE: Patient seen, evaluated, history reviewed, and approved for sedation. Airway, heart, and lung exam satisfactory for sedation. Discussed risks, benefits, alternatives for procedure, and/or sedation. The roles and responsibilities of care team members, residents, and fellows were discussed. Patient understands information and questions answered. Informed consent obtained from the patient. Immediately prior to starting the procedure, in the presence of the assisting personnel, a procedural pause was conducted to verify correct patient identity and verification of procedure to be performed, and as applicable, correct side and site, correct patient position, availability of implants, special equipment, or special requirements, and all image and specimen identification data. INTRAPROCEDURE: Moderate sedation was administered by sedation nurse under my supervision. The patient was continuously monitored with real time oxygen saturation, heart rate, ECG rhythm strip and blood pressure throughout administration of the sedation and performance of the procedure. The total intra-procedural sedation time was: 5 minutes. TECHNIQUE: Sterile. 1% lidocaine for local anesthesia. Location: Right lobe liver mass Target lesion size: 4.1 cm Needle size: 17-gauge introducer, 18-gauge Bard biopsy device. Number of passes: Single pass with introducer, 4 x 18 gauge cores. Complication: None. Blood loss: None. PATIENT INSTRUCTIONS: Patient may be dismissed from the radiology department when dismissal criteria met. POST-PROCEDURE DIAGNOSIS: Indeterminate hepatic mass. Procedure Note Aaksh Hudson M.D. - 12/30/2024 EXAM: US LIVER BIOPSY PRE-PROCEDURE: Patient seen, evaluated, history reviewed, and approved forsedation. Airway, heart, and lung exam satisfactory for sedation.Discussed risks, benefits, alternatives for procedure, and/or sedation.The roles and responsibilities of care team members, residents, and fellows were discussed. Patient understandsinformation and questions answered. Informed consent obtained from thepatient. Immediately prior to starting the procedure, in the presence ofthe assisting personnel, a procedural pause was conducted to verify correct patient identity and verificationof procedure to be performed, and as applicable, correct side and site,correct patient position, availability of implants, special equipment, orspecial requirements, and all image and specimen identification data. INTRAPROCEDURE: Moderate sedation was administered by sedation nurse undermy supervision. The patient was continuously monitored with real timeoxygen saturation, heart rate, ECG rhythm strip and blood pressurethroughout administration of the sedation and performance of the procedure. The total intra-procedural sedation timewas: 5 minutes. TECHNIQUE: Sterile. 1% lidocaine for local anesthesia. Location: Right lobe liver mass Target lesion size: 4.1 cm Needle size: 17-gauge introducer, 18-gauge Bard biopsy device. Number of passes: Single pass with introducer, 4 x 18 gauge cores. Complication: None. Blood loss: None. PATIENT INSTRUCTIONS: Patient may be dismissed from the radiologydepartment when dismissal criteria met. POST-PROCEDURE DIAGNOSIS: Indeterminate hepatic mass. IMPRESSION: Ultrasound-guided hepatic mass core biopsy. NR us Drea Clary UNIVERSITY ADMINISTRATOR, C.N.P., D.N.P. IMG US PROCEDURES Final Result * CT Pancreas Angiogram Triple Phase and Pelvis with IV Contrast (12/28/2024 12:48 PM CDT) Anatomical Region Laterality Modality Abdomen, Pelvis, Abdominal R ST LOS, Abdominal ARZ LOS, Vascular Interventional ARZ LOS, Vascular Interventional FLA LOS, Abdominal FLA LOS N/A Computed Tomography, Compute d Tomography 12/28/2024 12:4 6 PM CDT Impressions 12/28/2024 1:20 PM CDT 1. 4.5 cm hypoenhancing mass in the pancreatic tail suspicious for adenocarcinoma. 2. 4 cm lobulated mass in the right lobe of the liver consistent with a metastasis. There is a an indeterminant 2 cm low-attenuation lesion in the left lobe and tiny lesion inferiorly in the right lobe. The liver could be further evaluated with MR if indicated. 3. Several suspicious peripancreatic and periportal lymph nodes. Narrative 12/28/2024 1:20 PM CDT EXAM: CT PANCREAS ANGIOGRAM TRIPLE PHASE AND PELVIS WITH IV CONTRAST Including 3D image post-processing with or without AI assistance. COMPARISON: Outside CT of the abdomen 12/21/2024 FINDINGS: PANCREAS: Approximately 4.5 cm hypoenhancing infiltrative mass in the tail of the pancreas. 5.1 cm x 2.6 cm bilobed cystic lesion upstream from the mass abutting the medial portion of the spleen and descending colon may represent a pseudocyst versus cystic or necrotic tumor. There is also a cystic lesion involving the posterior wall of the stomach which measures 1.8 cm, decreased from 3 cm. This may also represent a pseudocyst given the interval decrease in size. VASCULAR: The splenic vein is occluded. Left upper quadrant perigastric collaterals. The coronary vein is dilated and inserts into the splenic vein more downstream from the tumor. The IMV is patent and inserts into the SMV. There is soft tissue thickening which tracks along the splenic artery and leads to narrowing. The soft tissue thickening extends centrally where it encases the proximal aspect of the hepatic artery and abuts the celiac artery. HEPATOBILIARY: 4 x 3.7 cm lobulated mass in the right lobe of liver consistent with a metastasis. Tiny adjacent low-attenuation lesion in the inferior right lobe of the liver posteriorly. 2 cm low-attenuation lesion in the left lobe along the falciform ligament could represent an additional metastasis versus a focal area of steatosis or perfusion anomaly. There is diffuse hepatic steatosis. MR could be performed for further evaluation of the liver. LYMPH NODES: Several suspicious peripancreatic and periportal lymph nodes measuring up to 13 mm. Prominent gastrohepatic ligament lymph nodes measuring up to 10 mm. PERITONEUM: No ascites or peritoneal masses. OTHER FINDINGS: Areas of hypoenhancement in the spleen may be related to the underlying splenic vein occlusion. Enlarged prostate. Colonic diverticulosis. Procedure Note Gabriel Quiroz M.D. - 12/28/2024 EXAM: CT PANCREAS ANGIOGRAM TRIPLE PHASE AND PELVIS WITH IV CONTRAST Including 3D image post-processing with or without AI assistance. COMPARISON: Outside CT of the abdomen 12/21/2024 FINDINGS: PANCREAS: Approximately 4.5 cm hypoenhancing infiltrative mass in the tail of thepancreas. 5.1 cm x 2.6 cm bilobed cystic lesion upstream from the massabutting the medial portion of the spleen and descending colon mayrepresent a pseudocyst versus cystic or necrotic tumor. There is also a cystic lesion involving the posterior wall of the stomachwhich measures 1.8 cm, decreased from 3 cm. This may also represent apseudocyst given the interval decrease in size. VASCULAR: The splenic vein is occluded. Left upper quadrant perigastric collaterals.The coronary vein is dilated and inserts into the splenic vein moredownstream from the tumor. The IMV is patent and inserts into the SMV. There is soft tissue thickening which tracks along the splenic artery andleads to narrowing. The soft tissue thickening extends centrally where itencases the proximal aspect of the hepatic artery and abuts the celiacartery. HEPATOBILIARY: 4 x 3.7 cm lobulated mass in the right lobe of liver consistent with ametastasis. Tiny adjacent low-attenuation lesion in the inferior rightlobe of the liver posteriorly. 2 cm low-attenuation lesion in the leftlobe along the falciform ligament could represent an additional metastasis versus a focal area of steatosis orperfusion anomaly. There is diffuse hepatic steatosis. MR could beperformed for further evaluation of the liver. LYMPH NODES: Several suspicious peripancreatic and periportal lymph nodes measuring upto 13 mm. Prominent gastrohepatic ligament lymph nodes measuring up to 10 mm. PERITONEUM: No ascites or peritoneal masses. OTHER FINDINGS: Areas of hypoenhancement in the spleen may be related to the underlyingsplenic vein occlusion. Enlarged prostate. Colonic diverticulosis. IMPRESSION: 1. 4.5 cm hypoenhancing mass in the pancreatic tail suspicious foradenocarcinoma. 2. 4 cm lobulated mass in the right lobe of the liver consistent with ametastasis. There is a an indeterminant 2 cm low-attenuation lesion in theleft lobe and tiny lesion inferiorly in the right lobe. The liver could befurther evaluated with MR if indicated. 3. Several suspicious peripancreatic and periportal lymph nodes. us Aleena Moreira M.D. IMG CT PROCEDURES Final Result * (ABNORMAL) Hemoglobin A1c (12/28/2024 10:35 AM CDT) Hemoglobin A1c, B 6.2(H) 4.0 - 5.6 % 12/28/2024 11:51 AM CDT DTL Comment: Hemoglobin A1c values of 5.7-6.4 percent indicate an increased risk for developing diabetes mellitus. In diabetic patients, HbA1c goals should be discussed with healthcare provider. Blood (Blood, Venous) 12/28/2024 10:35 AM CDT 12/28/2024 10:59 AM CDT us Aleena Moreira M.D. LAB BLOOD ADD-ON Final Result Performing Organization Address [facility] Co de Phone Number [facility] [address] [facility] [address] [place] [address] * Prothrombin Time (PT) (12/28/2024 10:35 AM CDT) Prothrombin Time, P 12.2 9.4 - 12.5 sec 12/28/2024 11:15 AM CDT DTL INR 1.1 0.9 - 1.1 12/28/2024 11:15 AM CDT DTL Comment: ----ADDITIONAL INFORMATION---- Standard intensity warfarin therapeutic range: 2.0 to 3.0 High intensity warfarin therapeutic range: 2.5 to 3.5 Blood (Blood, Venous) 12/28/2024 10:35 AM CDT 12/28/2024 10:59 AM CDT us Aleena Moreira M.D. LAB BLOOD ADD-ON Final Result Performing Organization Address City/[facility]/ZIP Co de Phone Number [facility] [address] [facility] [address] [place] [address] * Prealbumin (PAB) (12/28/2024 10:35 AM CDT) Prealbumin (PAB), S 34 19 - 38 mg/dL 12/29/2024 8:10 AM CDT [facility] Blood (Blood, Venous) 12/28/2024 10:35 AM CDT 12/28/2024 6:17 PM CDT us Aleena Moreira M.D. LAB BLOOD ADD-ON Final Result [facility] [address] [place] [address] [facility] [address] [place] [address] * Cell-free DNA KRAS 12, 13, 61,146, Blood (12/28/2024 10:35 AM CDT) Pathologist [facility] Result Summary POSITIVE 12/30/2024 11:34 AM CDT DTL Result KRAS status: Mutant 12/30/2024 11:34 AM CDT DTL Specimen WB, Whole Blood 11:34 AM CDT DTL Released By Dianna Crook M.D. 12/30/2024 11:34 AM CDT DTL Interpretation ASSOCIATIONS BETWEEN KRAS MUTATIONS AND CANCER KRAS mutations, primarily those occurring at codons 12, 13, and 61, result in constitutive activation of the BENY/MAPK signaling pathway. Current data regarding the predictive value of KRAS testing for the efficacy of EGFR-targeted therapies has been best studied in colorectal and non-small cell lung cancer. These studies suggest that the efficacy of EGFR-targeted therapies is limited to patients with tumors lacking KRAS mutations. Thus, the detection of a non-G12C KRAS activating mutation suggests that EGFR-targeted therapies may have limited therapeutic value for this patient if the primary origin of the tumor is colorectal or non-small cell lung carcinoma (1,2,3,4). Additional studies are needed in order to assess the efficacy of EGFR-targeted therapies in other neoplasms. REFERENCES 1. Gisselle Oncol. 2013 Feb;24(8):2062- (PMID 43095040) 2. Gina Rev Clin Oncol. 2010Feb 26;8(11):661-8 (PMID [id number]) 3. Mod Pathol. 2007; Suppl 2:S16-22 (PMID [id number]) 4. J Clin Oncol. 2004Mar 07;23(25):5900-9 (PMID [id number]) 12/30/2024 11:34 AM CDT DTL Comment: ----ADDITIONAL INFORMATION---- Cell-free DNA was isolated from the plasma and evaluated for the presence KRAS G12A, G12C, G12D, G12R, G12S, G12V, G13D, Q61K, Q61L, Q61R, Q61H, and A146 mutations using digital droplet PCR analysis. The limit of detection of this assay for the detection of the KRAS mutations (G12A, G12C, G12D, G12R, G12S, G12V, G13D, Q61K, Q61L, Q61R, Q61H, and A146T) is influenced by the amount of cfDNA in the blood. This is a biological variable that cannot be controlled. This assay was designed to detect the KRAS G12A, G12C, G12D, G12R, G12S, G12V, G13D, Q61K, Q61L, Q61R, Q61H, and A146 mutations. This test has been evaluated by our laboratory as an alternative to assessing paraffin embedded tumor specimens for KRAS mutations in patients with advanced colorectal cancer. Those studies revealed that this assay has a high positive predictive value (100% in our study) for the presence of a KRAS mutation in the patient's tumor and high concordance in the specific mutation type observed in the patient's plasma and tumor. Patients with a negative test result may still harbor a KRAS mutation at codons 12, 13, 61, or 146, and mutation testing of a tissue specimen for KRAS mutations is recommended. This test has not been clinically validated for use as a tool to monitor response to therapy or for early detection of tumors. TEST CLASSIFICATION This test was developed and its performance characteristics determined by [facility] in a manner consistent with CLIA requirements. This test has not been cleared or approved by the U.S. Food and Drug Administration. Blood (Blood, Venous) 12/28/2024 10:35 AM CDT 12/28/2024 11:34 AM CDT Narrative [facility] - 12/30/2024 11:34 AM CDT Specimen Information: Specimen ID: [id number] Specimen Type: Blood Specimen Collection Start Date: 12/28/2024 10:35 AM Specimen Received Date: 12/28/2024 11:34 AM Specimen ID: [id number] Specimen Type: Blood Specimen Collection Start Date: 12/28/2024 10:35 AM Specimen Received Date: 12/28/2024 11:34 AM Aleena Moreira M.D. LAB GENETIC TESTING Final Result Performing Organization Address City/[facility]/ZIP Co de Phone Number [facility] [address] [place] [address], [facility] DTL [address] [facility] [address] [place] [address] * (ABNORMAL) Carbohydrate Antigen 19-9 (CA 19-9) (12/28/2024 10:35 AM CDT) [facility] Carbohydrate Ag 19-9, S 55231(H) <35 U/mL 12/28/2024 2:59 PM CDT [facility] Comment: ----ADDITIONAL INFORMATION---- The testing method is an immunoenzymatic assay manufactured by [employer] and performed on the [employer] Call DxI 800. Values obtained with different assay methods or kits may be different and cannot be used interchangeably. Test results cannot be interpreted as absolute evidence for the presence or absence of malignant disease. Blood (Blood, Venous) 12/28/2024 10:35 AM CDT 12/28/2024 1:37 PM CDT us Aleena Moreira M.D. LAB BLOOD ADD-ON Final Result [facility] [address] [place] [address] [facility] [address] [place] [address] * Bilirubin, Direct (12/28/2024 10:35 AM CDT) Bilirubin, Direct, S 0.2 0.0 - 0.3 mg/dL 12/28/2024 11:46 AM CDT DTL Blood (Blood, Venous) 12/28/2024 10:35 AM CDT 12/28/2024 11:24 AM CDT Aleena Moreira M.D. LAB BLOOD ADD-ON Final Result [facility] [address] [place] [address], [facility] [address] [place] [address] * (ABNORMAL) Comprehensive Metabolic Panel (12/28/2024 10:35 AM CDT) Potassium, S 4.8 3.6 - 5.2 mmol/L 12/28/2024 11:46 AM CDT DTL Sodium, S 137 135 - 145 mmol/L 12/28/2024 11:46 AM CDT DTL Chloride, S 102 98 - 107 mmol/L 12/28/2024 11:46 AM CDT DTL Bicarbonate, S 25 22 - 29 mmol/L 12/28/2024 11:46 AM CDT DTL Anion Gap 10 7 - 15 12/28/2024 11:46 AM CDT DTL BUN (Blood Urea Nitrogen), S 14 8 - 24 mg/dL 12/28/2024 11:46 AM CDT DTL Creatinine 1.42(H) 0.74 - 1.35 mg/dL 12/28/2024 11:46 AM CDT DTL Estimated GFR (eGFR) 53(L) >=60 mL/min/BS A 12/28/2024 11:46 AM CDT DTL Comment: Estimated GFR calculated using the 2020 CKD_EPI creatinine equation. Calcium, Total, S 10.1 8.8 - 10.2 mg/dL 12/28/2024 11:46 AM CDT DTL Glucose, S 90 70 - 140 mg/dL 12/28/2024 11:46 AM CDT DTL Protein, Total, S 6.9 6.3 - 7.9 g/dL 12/28/2024 11:46 AM CDT DTL Albumin, S 4.5 3.5 - 5.0 g/dL 12/28/2024 11:46 AM CDT DTL Aspartate Aminotransferase (AST), S 33 8 - 48 U/L 12/28/2024 11:46 AM CDT DTL Alkaline Phosphatase, S 222(H) 40 - 129 U/L 12/28/2024 11:46 AM CDT DTL Alanine Aminotransferase (ALT), S 37 7 - 55 U/L 12/28/2024 11:46 AM CDT DTL Bilirubin, Total, S 0.6 0.0 - 1.2 mg/dL 12/28/2024 11:46 AM CDT DTL Blood (Blood, Venous) 12/28/2024 10:35 AM CDT 12/28/2024 11:24 AM CDT Aleena Moreira M.D. LAB BLOOD ADD-ON Final Result [facility] [address] [place] [address], [facility] [place] [address] * (ABNORMAL) CBC with Differential, Blood (12/28/2024 10:35 AM CDT) Hemoglobin 15.4 13.2 - 16.6 g/dL 12/28/2024 11:35 AM CDT DTL Hematocrit 47.1 38.3 - 48.6 % 12/28/2024 11:35 AM CDT DTL Erythrocytes 5.16 4.35 - 5.65 x10(12)/L 12/28/2024 11:35 AM CDT DTL MCV 91.3 78.2 - 97.9 fL 12/28/2024 11:35 AM CDT DTL RBC Distrib Width 13.1 11.8 - 14.5 % 12/28/2024 11:35 AM CDT DTL Platelet Count 217 135 - 317 x10(9)/L 12/28/2024 11:35 AM CDT DTL Leukocytes 11.0(H) 3.4 - 9.6 x10(9)/L 12/28/2024 11:35 AM CDT DTL Neutrophils 7.16(H) 1.56 - 6.45 x10(9)/L 12/28/2024 11:35 AM CDT DH[facility] Lymphocytes 2.78 0.95 - 3.07 x10(9)/L 12/28/2024 11:35 AM CDT DTL Monocytes 0.75 0.26 - 0.81 x10(9)/L 12/28/2024 11:35 AM CDT DTL Eosinophils 0.20 0.03 - 0.48 x10(9)/L 12/28/2024 11:35 AM CDT DTL Basophils 0.07 0.01 - 0.08 x10(9)/L 12/28/2024 11:35 AM CDT DTL Blood (Blood, Venous) 12/28/2024 10:35 AM CDT 12/28/2024 10:59 AM CDT Aleena Moreira M.D. LAB BLOOD ADD-ON Final Result [facility] [address] [place] [address], [facility] DTL [facility] [address] [place] [address] [facility] [address] [place] [address] * Interpretation of Outside CT Chest (12/24/2024 5:00 PM CDT) Anatomical Region Laterality Modality Chest, Thoracic RST LOS, Tho racic ARZ LOS, Thoracic FLA LOS, Other, Body N/A Computed Tomography Impressions 12/28/2024 3:43 PM CDT 1. Interval enlargement of a few small indeterminant right lung nodules. 2. 11 mm right lower lobe lung nodule, with a focus of calcification, as could be seen with a granuloma. 3. Pancreatic tail, gastric and hepatic masses and prominent and borderline enlarged upper abdominal lymph nodes as further characterized on subsequent CT abdomen. Narrative 12/28/2024 3:43 PM CDT EXAM: INTERPRETATION OF OUTSIDE CT CHEST dated 12/23/2024, performed with IV contrast. COMPARISON: Outside chest CT 02/18/2024, subsequent [facility] CT abdomen 12/28/2024. FINDINGS: No definitive change of 11 x 8 mm partially calcified nodule in the medial right lower lobe, which was only partially visualized on the abdominal examination from 07/19/2022 (series 9 image 62). 3 mm nodule posterior right lower lobe, amidst region of atelectasis slightly increased since 07/21/2022, previously 1 mm (series 9 image 77) New 3 mm noncalcified nodule central right upper lobe ( Series 9, Image 65) New 2 mm nodule right lower lobe ( Series 9, Image 97) Calcified lung granulomas. Central airways are patent. No peripheral calcification of borderline-enlarged non-10 mm right infrahilar lymph node (series 9 image 64). Scattered subcentimeter lymph nodes in the chest, without adenopathy. Coronary calcification. No significant pericardial or pleural effusion. Stimulator box anterior left chest wall. 3 cm juxta gastric cystic mass, 3.2 cm right hepatic lobe mass and 4.7 cm distal pancreatic tail low-attenuation mass as further characterized on subsequent abdominal CT. Hepatic steatosis. Prominent and borderline enlarged upper abdominal lymph nodes, with 13 mm periportal lymph node. Skeletal degenerative changes. Procedure Note Kike Holland M.B., B.Ch. - 12/28/2024 EXAM: INTERPRETATION OF OUTSIDE CT CHEST dated 12/23/2024, performed withIV contrast. COMPARISON: Outside chest CT 02/18/2024, subsequent [facility] CT abdomen12/28/2024. FINDINGS: No definitive change of 11 x 8 mm partially calcified nodule in the medialright lower lobe, which was only partially visualized on the abdominalexamination from 07/19/2022 (series 9 image 62). 3 mm nodule posterior right lower lobe, amidst region of atelectasisslightly increased since 07/21/2022, previously 1 mm (series 9 image 77) New 3 mm noncalcified nodule central right upper lobe ( Series 9, Image65) New 2 mm nodule right lower lobe ( Series 9, Image 97) Calcified lung granulomas. Central airways are patent. No peripheral calcification ofborderline-enlarged non-10 mm right infrahilar lymph node (series 9 image64). Scattered subcentimeter lymph nodes in the chest, without adenopathy.Coronary calcification. No significant pericardial or pleural effusion. Stimulator box anterior left chest wall. 3 cm juxta gastric cystic mass, 3.2 cm right hepatic lobe mass and 4.7 cmdistal pancreatic tail low-attenuation mass as further characterized onsubsequent abdominal CT. Hepatic steatosis. Prominent and borderline enlarged upper abdominal lymphnodes, with 13 mm periportal lymph node. Skeletal degenerative changes. IMPRESSION: 1. Interval enlargement of a few small indeterminant right lung nodules. 2. 11 mm right lower lobe lung nodule, with a focus of calcification, ascould be seen with a granuloma. 3. Pancreatic tail, gastric and hepatic masses and prominent andborderline enlarged upper abdominal lymph nodes as further characterizedon subsequent CT abdomen. Aleena Moreira M.D. [facility] CT PROCEDURES Final Result documented in this encounter Visit Diagnoses Diagnosis Mass Pancreas- Primary Malignant Neoplasm Of Pancreas Adenocarcinoma (HCC) Mass Pancreas Mass Pancreas Mass Pancreas Malignant Neoplasm Of Pancreas Adenocarcinoma (HCC) Mass Pancreas documented in this encounter Additional Health Concerns Active Problems Noted Date Diagnosed Date Autogenerated Problem 11/16/2024 documented as of this encounter Care Teams P[employer] Relationship Specialty Start Date End Date Elsewhere, Pcp PCP - General Internal Medicine 09/09/23 documented as of this encounter
--- OUTSIDE RECORDS SUMMARY | 2024-12-24 16:15 | XMS_ITS | Encounter Summary ---
Author Organization [facility] Address [address] [place] [address] Care Team Providers Care Graduate Student Name Role Phone Elsewhere, Pcp Primary Care Provider Unavailabl e Encounter Details Date Type Department Care Team (Late st Contact Info) Description 12/24/2024 4:15 PM CDT Ancillary Procedure Department of Radiology in [place], [place] [address] [place] [address] Garland Porter M.D. [address] [place] [phone] Mass Pancreas Social History Tobacco Use Types Packs/Day Years Used Date Smoking Tobacco: Never Passive Smoke Exposure: Past Smokeless Tobacco: Never Passive Exposure Comments:Ch ildhood exposure. Alcohol Use Standard Drinks/Week Comments Not Currently 1 (1 standard drink = 0.6 oz pur e alcohol) 0-1 drink per week [facility] Utilities Answer Date Recorded In the past 12 months has e electric, gas, oil, or water [employer] threatened to shut off services in your [...] your living situation today? I have a [facility] place to live 12/23/2024 Sex and Gender Information Value Date Recorded Sex Assigned at Male 09/10/2023 7:48 AM SUPERVISOR MAILS Legal Sex Male 10:11 PM SUPERVISOR MAILS Gender Identity Male 09/10/2023 7:48 AM SUPERVISOR MAILS Sexual Orientation Straight 09/10/2023 7: 48 AM SUPERVISOR MAILS documented as of this encounter Plan of Treatment Upcoming Encounters Date Type Department Care Team (Latest Contact Info) Description 02/08/2025 2:15 PM CDT Clinical Communication Virtual Review in [place], [place] 200 [place] [address] 02/09/2025 9:30 AM CDT Telemedicine Department of Oncology in [address] [phone] Jesica Wasserman M.B., B.Ch. [address] [place] [phone] Cecily Nash, WeroI.C.S.W. [address] [place] [phone] 02/10/2025 12:00 PM CDT Lab Department of Infusion Therapy in [place], [place] [address] [place] [phone] Skip Amaya M.D., Ph.D. [address] [place] [phone] 02/10/2025 2:30 PM CDT Office Visit Department of Oncology in [address] [phone] Rosenda Garza MPAS, P.A.-C. [address] [place] [phone] 02/11/2025 8:00 AM CDT Infusion Department of Oncology in [place], [place] [address] [place] [phone] Skip Amaya M.D., Ph.D. [address] [place] [phone] 02/23/2025 2:15 PM CDT Clinical Communication Virtual Review in [place], [place] 200 [place] [address] 02/25/2025 8:30 AM CDT Lab Department of Oncology in [place], [place] [address] [place] [phone] Skip Amaya M.D., Ph.D. [address] [place] [phone] 02/25/2025 10:40 AM CDT Office Visit Department of Oncology in [place], [place] [address] [place] [phone] Sandy Judge, KASH, C.N.P., M.S. [address] [place] [phone] 02/25/2025 11:30 AM CDT Infusion Department of Oncology in [place], [place] [address] [place] [phone] Skip Amaya M.D., Ph.D. [address] [place] [phone] 03/04/2025 6:00 AM CDT Lab Department of Infusion Therapy in [address] [phone] Skip Amaya M.D., Ph.D. [address] [place] [phone] 03/04/2025 8:10 AM CDT Office Visit Department of Oncology in [place], [place] [address] [place] [phone] Jie Shook P.A.-C. [address] [place] [phone] 03/04/2025 9:30 AM CDT Infusion Department of Oncology in [place], [place] [address] [place] [phone] Skip Amaya M.D., Ph.D. [address] [place] [phone] 03/10/2025 2:15 PM CDT Clinical Communication Virtual Review in [place], [place] 200 [place] [address] 03/11/2025 6:00 AM CDT Lab Department of Laboratory Medicine and Pathology, [facility] in [address] [phone] Skip Amaya M.D., Ph.D. [address] [place] [phone] 03/11/2025 7:20 AM CDT Office Visit Department of Oncology in [address] [phone] Bipin Leal, John.-Jordy., M.S. [address] [place] [phone] 03/11/2025 8:00 AM CDT Infusion Department of Oncology in [address] [phone] Skip Amaya M.D., Ph.D. [address] [place] [phone] 03/24/2025 7:30 AM CDT Appointment Department of Radiology, [facility], in [place], [place] [address] [place] [phone] Skip Amaya M.D., Ph.D. [address] [place] [phone] 03/24/2025 11:20 AM CDT Lab Department of Infusion Therapy in [place], [place] [address] [place] [phone] Skip Amaya M.D., Ph.D. [address] [place] [phone] 03/24/2025 1:30 PM CDT Office Visit Department of Oncology in [address] [phone] Skip Amaya M.D., Ph.D. [address] [place] [phone] 03/25/2025 7:00 AM CDT Infusion Department of Oncology in [address] [phone] Skip Amaya M.D., Ph.D. [address] [place] [phone] 03/29/2025 2:30 PM CDT Clinical Communication Virtual Review in [place], [place] 200 [place] [address] 04/01/2025 6:00 AM CDT Lab Department of Infusion Therapy in [address] [phone] Skip Amaya M.D., Ph.D. [address] [place] [phone] 04/01/2025 8:20 AM CDT Office Visit Department of Oncology in [place], [place] [address] [place] [phone] Precious Hill M.D., Ph.D. [address] [place] [phone] 04/01/2025 9:00 AM CDT Infusion Department of Oncology in [place], [place] [address] [place] [phone] Skip Amaya M.D., Ph.D. [address] [place] [phone] 04/07/2025 11:00 AM CDT Lab Department of Infusion Therapy in [place], [place] [address] [place] [phone] Skip Amaya M.D., Ph.D. [address] [place] [phone] 04/07/2025 1:20 PM CDT Office Visit Department of Oncology in [place], [place] [address] [place] [phone] Sandy Judge, KASH, C.N.P., M.S. [address] [place] [phone] 04/08/2025 7:00 AM CDT Infusion Department of Oncology in [place], [place] [address] [place] [phone] Skip Amaya M.D., Ph.D. [address] [place] [phone] 04/21/2025 7:15 AM CDT Clinical Communication Virtual Review in [place], [place] 200 [place] [address] 04/22/2025 7:20 AM CDT Lab Department of Infusion Therapy in [place], [place] [address] [place] [phone] Skip Amaya M.D., Ph.D. [address] [place] [phone] 04/22/2025 9:20 AM CDT Office Visit Department of Oncology in [place], [place] [address] [place] [phone] Sandy Judge APRN, C.N.P., M.S. [address] [place] [phone] 04/22/2025 10:30 AM CDT Infusion Department of Oncology in [place], [place] [address] [place] [phone] Skip Amaya M.D., Ph.D. [address] [place] [phone] 04/29/2025 11:15 AM CDT Lab Department of Oncology in [place], [place] [address] [place] [phone] Skip Amaya M.D., Ph.D. [address] [place] [phone] 04/29/2025 1:20 PM CDT Office Visit Department of Oncology in [place], [place] [address] [place] [phone] Sandy Judge APRN, C.N.P., M.S. [address] [place] [phone] 04/29/2025 2:00 PM CDT Infusion Department of Oncology in [place], [place] [address] [place] [phone] Skip Amaya M.D., Ph.D. [address] [place] [phone] documented as of this encounter Goals Goal Patient Goal Type Associated Problems Recent Progress Patient-Stated? Author Autogenerat ed Goal Care Plan Autogenerated Problem No Hedy Lees R.N. documented as of this encounter Procedures Procedure Name Priority Date/Time Associated Diagnosis Comments INTERPRETATION OF OUTSIDE CT CHEST RAD - Routine (most inpatients and all outpatients) 12/24/2024 5:00 PM CDT Mass Pancreas documented in this encounter Results * Interpretation of Outside CT Chest (12/24/2024 [...] contrast. COMPARISON: Outside chest CT 02/18/2024, subsequent [facility] CT abdomen 12/28/2024. FINDINGS: No definitive [...] contrast. COMPARISON: Outside chest CT 02/18/2024, subsequent [facility] CT abdomen12/28/2024. FINDINGS: No definitive change [...] nodes as further characterizedon subsequent CT abdomen. [place] [facility] CT PROCEDURES Final Result documented in this encounter Visit Diagnoses Diagnosis Mass Pancreas documented in this encounter Additional Health Concerns Active Problems Noted Date Diagnosed Date Autogenerated Problem 11/16/2024 documented as of this encounter Care Teams Graduate Student Relationship Specialty Start Date End Date Elsewhere, Pcp PCP - General Internal Medicine 09/09/23 documented as of this encounter
--- OUTSIDE RECORDS SUMMARY | 2024-12-28 10:04 | XMS_ITS | Encounter Summary ---
Author Organization [facility] Address [address] [place] [address] Care Team Providers Care Slackman Name Role Phone Elsewhere, Pcp Primary Care Provider Unavailabl e Encounter Details Date Type Department Care Team (Latest Contact Info) Description 12/28/2024 10:04 AM CDT - 12/28/2024 11:04 AM CDT Hospital Encounter Department of Laboratory Medicine and Pathology, [facility] in [place], [place] [address] [place] [address] Garland Porter M.D. [address] [place] [address] Mass Pancreas Discharge Disposition: Home or Self Care Social History Tobacco Use Types Packs/Day Years Used Date Smoking Tobacco: Never Passive Smoke Exposure: Past Smokeless Tobacco: Never Passive Exposure Comments:Ch ildhood exposure. Alcohol Use Standard Drinks/Week Comments Not Currently 1 (1 standard drink = 0.6 oz pur e alcohol) 0-1 drink per week [facility] Utilities Answer Date Recorded In the past 12 months has [employer], gas, oil, or water company threatened [...] your living situation today? I have a [facility] place to live 12/23/2024 Sex and Gender Information Value Date Recorded Sex Assigned at Male 09/10/2023 7:48 AM CAREER MANAGER Legal Sex Male 10:11 PM CAREER MANAGER Gender Identity Male 09/10/2023 7:48 AM CAREER MANAGER Sexual Orientation Straight 09/10/2023 7: 48 AM CAREER MANAGER documented as of this encounter Medications at Time of Discharge acetaminophen (TYLENOL) 500 mg tablet Take 2 tablets (1,000 mg total) by mouth 4 (four) times a day. 11/18/[address] tablet Take 1 tablet (81 mg total) by mouth every morning. On hold prior to surgery - last dose 11/03/23 11/25/2023 atorvastatin (LIPITOR) 80 mg tablet Take 1 tablet by mouth every morning. 02/24/2023 buPROPion XL (WELLBUTRIN XL) 150 mg 24 hr tablet Take 150 mg by mouth every morning. Take along with the 300 mg tablet for a total of 450mg buPROPion XL (WELLBUTRIN XL) 300 mg 24 hr tablet Take 300 mg by mouth every morning. Take along with 150 mg tablet for a total of 450 mg escitalopram (LEXAPRO) 20 mg tablet Take 1 tablet by mouth every morning. 02/24/2023 LORazepam (ATIVAN) 0.5 mg tablet Take 1 tablet (0.5 mg total) by mouth as needed for anxiety. Do not take concurrently with opioids. 11/18/2023 nitroglycerin (NITROSTAT) 0.[address] 0.4 mg under the tongue every 2 (two) hours as needed for chest pain. 06/11/2023 sildenafiL (VIAGRA) 100 mg tablet Take 100 mg by mouth as needed for erectile dysfunction. cholecalciferol (Vitamin D3) 50 mcg (2,000 Unit) tablet Take 4,000 Units by mouth daily. 08/16/2013 5 clopidogreL (Plavix) 75 mg tablet Take 1 tablet by mouth daily. 02/19/2024 5 oxyCODONE (Roxicodone) 5 mg immediate release tablet Take 5-10 mg by mouth every 4 (four) hours as needed. 12/27/2024 5 documented as of this encounter Plan of Treatment Upcoming Encounters Date Type Department Care Team (Latest Contact Info) Description 02/08/2025 2:15 PM CDT Clinical Communication Virtual Review in [place], [place] [address] [place] [address] 02/09/2025 9:30 AM CDT Telemedicine Department of Oncology in [address] [phone] Jesica Wasserman M.B., B.Ch. [address] [place] [phone] Cecily Nash, John.I.C.S.W. [address] [place] [phone] 02/10/2025 12:00 PM CDT Lab Department of Infusion Therapy in [address] [phone] Skip Amaya M.D., Ph.D. [address] [place] [phone] 02/10/2025 2:30 PM CDT Office Visit Department of Oncology in [place], [place] [address] [place] [phone] Rosenda Garza, KRISHNAS, P.A.-C. [address] [place] [phone] 02/11/2025 8:00 AM CDT Infusion Department of Oncology in [place], [place] [address] [place] [phone] Skip Amaya M.D., Ph.D. [address] [place] [phone] 02/23/2025 2:15 PM CDT Clinical Communication Virtual Review in [place], [place] [address] [place] [phone] 02/25/2025 8:30 AM CDT Lab Department of Oncology in [place], [place] [address] [place] [phone] Skip Amaya M.D., Ph.D. [address] [place] [phone] 02/25/2025 10:40 AM CDT Office Visit Department of Oncology in [address] [phone] Sandy Judge, KASH, C.N.P., M.S. [address] [place] [phone] 02/25/2025 11:30 AM CDT Infusion Department of Oncology in [address] [phone] Skip Amaya M.D., Ph.D. [address] [place] [phone] 03/04/2025 6:00 AM CDT Lab Department of Infusion Therapy in [address] [phone] Skip Amaya M.D., Ph.D. [address] [place] [phone] 03/04/2025 8:10 AM CDT Office Visit Department of Oncology in [address] [phone] Jie Shook P.A.-C. [address] [place] [phone] 03/04/2025 9:30 AM CDT Infusion Department of Oncology in [place], [place] [address] [place] [phone] Skip Amaya M.D., Ph.D. [address] [place] [phone] 03/10/2025 2:15 PM CDT Clinical Communication Virtual Review in [place], [place] [address] [place] [address] 03/11/2025 6:00 AM CDT Lab Department of Laboratory Medicine and Pathology, [facility] in [place], [place] [address] [place] [phone] Skip Amaya M.D., Ph.D. [address] [place] [phone] 03/11/2025 7:20 AM CDT Office Visit Department of Oncology in [place], [place] [address] [place] [phone] Bipin Leal P.A.-C., M.S. [address] [place] [phone] 03/11/2025 8:00 AM CDT Infusion Department of Oncology in [place], [place] [address] [place] [phone] Skip Amaya M.D., Ph.D. [address] [place] [phone] 03/24/2025 7:30 AM CDT Appointment Department of Radiology, [facility] in [place], [place] [address] [place] [phone] Skip Amaya M.D., Ph.D. [address] [place] [phone] 03/24/2025 11:20 AM CDT Lab Department of Infusion Therapy in [address] [phone] Skip Amaya M.D., Ph.D. [address] [place] [phone] 03/24/2025 1:30 PM CDT Office Visit Department of Oncology in [address] [phone] Skip Amaya M.D., Ph.D. [address] [place] [phone] 03/25/2025 7:00 AM CDT Infusion Department of Oncology in [address] [phone] Skip Amaya M.D., Ph.D. [address] [place] [phone] 03/29/2025 2:30 PM CDT Clinical Communication Virtual Review in [address] [phone] 04/01/2025 6:00 AM CDT Lab Department of Infusion Therapy in [address] [phone] Skip Amaya M.D., Ph.D. [address] [place] [phone] 04/01/2025 8:20 AM CDT Office Visit Department of Oncology in [address] [phone] Precious Hill M.D., Ph.D. [address] [place] [phone] 04/01/2025 9:00 AM CDT Infusion Department of Oncology in [place], [place] [address] [place] [phone] Skip Amaya M.D., Ph.D. [address] [place] [phone] 04/07/2025 11:00 AM CDT Lab Department of Infusion Therapy in [place], [place] [address] [place] [phone] Skip Amaya M.D., Ph.D. [address] [place] [phone] 04/07/2025 1:20 PM CDT Office Visit Department of Oncology in [place], [place] [address] [place] [phone] Sandy Judge APRN, C.N.P., M.S. [address] [place] [phone] 04/08/2025 7:00 AM CDT Infusion Department of Oncology in [place], [place] [address] [place] [phone] Skip Amaya M.D., Ph.D. [address] [place] [phone] 04/21/2025 7:15 AM CDT Clinical Communication Virtual Review in [place], [place] [address] [place] [address] 04/22/2025 7:20 AM CDT Lab Department of Infusion Therapy in [place], [place] [address] [place] [phone] Skip Amaya M.D., Ph.D. [address] [place] [phone] 04/22/2025 9:20 AM CDT Office Visit Department of Oncology in [place], [place] [address] [place] [phone] Sandy Judge APRN, C.N.P., M.S. [address] [place] [phone] 04/22/2025 10:30 AM CDT Infusion Department of Oncology in [place], [place] [address] [place] [phone] Skip Amaya M.D., Ph.D. [address] [place] [phone] 04/29/2025 11:15 AM CDT Lab Department of Oncology in [address] [phone] Skip Amaya M.D., Ph.D. [address] [place] [phone] 04/29/2025 1:20 PM CDT Office Visit Department of Oncology in [address] [phone] Sandy Judge APRN, C.N.P., M.S. [address] [place] [phone] 04/29/2025 2:00 PM CDT Infusion Department of Oncology in [address] [phone] Skip Amaya M.D., Ph.D. [address] [place] [phone] documented as of this encounter Goals Goal Patient Goal Type Associated Problems Recent Progress Patient-Stated? Author Autogenerat ed Goal Care Plan Autogenerated Problem Hedy Frankel R.N. documented as of this encounter Procedures Procedure Name Priority Date/Time Associated Diagnosis Comments CFDNA KRAS 12, 13, 61, 146 BLOOD Routine 12/28/2024 10:35 AM CDT Mass Pancreas CARBOHYDRATE AG 19-9 (CA 19-9), S Routine 12/28/2024 10:35 AM CDT Mass Pancreas PROTHROMBIN TIME (PT), P Routine 12/28/2024 10:35 AM CDT Mass Pancreas CBC WITH DIFFERENTIAL, B Routine 12/28/2024 10:35 AM CDT Mass Pancreas PREALBUMIN (PAB), S Routine 12/28/2024 1 0:35 AM CDT Mass Pancreas HEMOGLOBIN A1C, B Routine 12/28/2024 10: 35 AM CDT Mass Pancreas BILIRUBIN DIRECT, S/P Routine 12/28/2024 10:35 AM CDT Mass Pancreas COMPREHENSIVE METABOLIC PANEL, S/P Routine 12/28/2024 10:35 AM CDT Mass Pancreas documented in this encounter Results * (ABNORMAL) Hemoglobin A1c (12/28/2024 10:35 AM CDT) Hemoglobin A1c, B 6.2(H) 4.0 - 5.6 % 12/28/2024 11:51 AM CDT DTL Comment: Hemoglobin A1c values of 5.7-6.4 percent indicate an increased risk for developing diabetes mellitus. In diabetic patients, HbA1c goals should be discussed with healthcare provider. Blood (Blood, Venous) 12/28/2024 10:35 AM CDT 12/28/2024 10:59 AM CDT us Garland Porter M.D. LAB BLOOD ADD-ON Final Result [facility] [address] [place], [place] [address] [address] [place] [address] * Prothrombin Time (PT) (12/28/2024 10:35 AM CDT) Pathologist [facility] Prothrombin Time, P 12.2 9.4 - 12.5 sec 12/28/2024 11:15 AM CDT DTL INR 1.1 0.9 - 1.1 12/28/2024 11:15 AM CDT DTL Comment: ----ADDITIONAL INFORMATION---- Standard intensity warfarin therapeutic range: 2.0 to 3.0 High intensity warfarin therapeutic range: 2.5 to 3.5 Blood (Blood, Venous) 12/28/2024 10:35 AM CDT 12/28/2024 10:59 AM CDT us Garland Porter M.D. LAB BLOOD ADD-ON Final Result [facility] [address] [place], [place] [address] [address] [place] [address] * Prealbumin (PAB) (12/28/2024 10:35 AM CDT) Pathologist [facility] Prealbumin (PAB), S 34 19 - 38 mg/dL 12/29/2024 8:10 AM CDT [facility] Blood (Blood, Venous) 12/28/2024 10:35 AM CDT 12/28/2024 6:17 PM CDT us Garland Porter M.D. LAB BLOOD ADD-ON Final Result [facility] [address] [place] [address] [facility] [address] [place] [address] * Cell-free DNA KRAS 12, 13, 61,146, [...] REFERENCES 1. Gisselle Oncol. 2012;24(8):2062- 7 (PMID [id number]) 2. Gina Rev Clin Oncol. 2010Feb 26;8(11):661-8 (PMID [id number]) 3. Mod Pathol. 2007; Suppl 2:S16-22 (PMID [id number]) 4. J Clin Oncol. 2004Mar 07;23(25):5900-9 (PMID [id number]) 12/30/2024 11:34 AM CDT DTL Comment: ----ADDITIONAL [...] developed and its performance characteristics determined by [facility] in a manner consistent with CLIA requirements. This test has not been cleared or approved by the U.S. Food and Drug Administration. Blood (Blood, Venous) 12/28/2024 10:35 AM CDT 12/28/2024 11:34 AM CDT Narrative [facility] - 12/30/2024 11:34 AM CDT Specimen Information: Specimen ID: [id number] Specimen Type: Blood Specimen Collection Start Date: 12/28/2024 10:35 AM Specimen Received Date: 12/28/2024 11:34 AM Specimen ID: [id number] Specimen Type: Blood Specimen Collection Start Date: 12/28/2024 10:35 AM Specimen Received Date: 12/28/2024 11:34 AM us Garland Porter M.D. LAB GENETIC TESTING Final Result [facility] [address] [place] [address], [facility] DTL [address] [place] [address] * (ABNORMAL) Carbohydrate Antigen 19-9 (CA 19-9) (12/28/2024 10:35 AM CDT) Carbohydrate Ag 19-9, S 00718(H) <35 U/mL 12/28/2024 2:59 PM CDT [facility] Comment: ----ADDITIONAL INFORMATION---- The testing method is an immunoenzymatic assay manufactured by [employer] and performed on the [employer] DxI 800. Values obtained with different assay methods or kits may be different and cannot be used interchangeably. Test results cannot be interpreted as absolute evidence for the presence or absence of malignant disease. Blood (Blood, Venous) 12/28/2024 10:35 AM CDT 12/28/2024 1:37 PM CDT us Garland Porter M.D. LAB BLOOD ADD-ON Final Result Performing Organization Address City/[facility]/ZIP Co de Phone Number [facility] [address] [place] [address] [facility] [address] [place] [address] * Bilirubin, Direct (12/28/2024 10:35 AM CDT) Pathologist [facility] Bilirubin, Direct, S 0.2 0.0 - 0.3 mg/dL 12/28/2024 11:46 AM CDT DTL Blood (Blood, Venous) 12/28/2024 10:35 AM CDT 12/28/2024 11:24 AM CDT us Garland Porter M.D. LAB BLOOD ADD-ON Final Result [facility] [address] [place] [address], [facility] DTL Formerly named [facility] [address] [place] [address] * (ABNORMAL) Comprehensive Metabolic Panel (12/28/2024 10:35 AM CDT) Pathologist [facility] Potassium, S 4.8 3.6 - 5.2 mmol/L [...] 10:35 AM CDT 12/28/2024 11:24 AM CDT Garland Porter M.D. LAB BLOOD ADD-ON Final Result [facility] [address] [place] [address], [facility] DTL Formerly named [facility] [address] [place] [address] * (ABNORMAL) CBC with Differential, Blood (12/28/2024 [...] 10:35 AM CDT 12/28/2024 10:59 AM CDT Garland Porter M.D. LAB BLOOD ADD-ON Final Result [facility] [address] [place] [address], [place] DTL Formerly named [facility] [address] [place] [address] [facility] [address] [place] [address] documented in this encounter Visit Diagnoses Diagnosis Mass Pancreas documented in this encounter Additional Health Concerns Active Problems Noted Date Diagnosed Date Autogenerated Problem 11/16/2024 documented as of this encounter Care Teams Slackman Relationship Specialty Start Date End Date Elsewhere, Pcp PCP - General Internal Medicine 09/09/23 documented as of this encounter
--- OUTSIDE RECORDS SUMMARY | 2024-12-28 11:05 | XMS_ITS | Encounter Summary ---
Author Organization [facility] Address [address] [place] [address] Care Team Providers Care Apple Checker Name Role Phone Elsewhere, Pcp Primary Care Provider Unavailabl e Reason for Referral * MRI/CAT/PET Scan (Routine) - Closed Specialty Diagnoses / Procedures Referred By Meeta t Referred To Contact Radiology Diagnoses Mass Pancreas Procedures CT Pancreas Angiogram Triple Phase and Pelvis with IV Contrast Garland Porter M.D. [address] [place] [address] Phone: tel: fax: [facility] Referral ID Status Reason Start Date Expiration Date Visits Re quested Visits Authorized [id number] Closed 12/24/2024 03/26/2026 1 1 Reason for Visit * MRI/CAT/PET Scan (Routine) - Closed Specialty Diagnoses / Procedures Referred By Meeta carlisle Referred To Contact Radiology Diagnoses Mass Pancreas Procedures CT Pancreas Angiogram Triple Phase and Pelvis with IV Contrast Garland Porter M.D. [address] [place] [address] Phone: tel: fax: [facility] Referral ID Status Reason Start Date Expiration Date Visits Re quested Visits Authorized [id number] Closed 12/24/2024 03/26/2026 1 1 Encounter Details Date Type Department Care Team (Latest Contact Info) Description 12/28/2024 11:05 AM CDT - 12/28/2024 11:59 PM CDT Hospital Encounter Department of Radiology, [facility], in [place], [place] [address] [place] [address] Garland Porter M.D. [address] [place] [address] Mass Pancreas Discharge Disposition: Home or Self Care Social History Tobacco Use Types Packs/Day Years Used Date Smoking Tobacco: Never Passive Smoke Exposure: Past Smokeless Tobacco: Never Passive Exposure Comments:Ch ildhood exposure. Alcohol Use Standard Drinks/Week Comments Not Currently 1 (1 standard drink = 0.6 oz pur e alcohol) 0-1 drink per week [facility] Utilities Answer Date Recorded In [...] your living situation today? [facility] 12/23/2024 Sex and Gender Information Value Date Recorded Sex Assigned at Male 09/10/2023 7:48 AM WARPMAN Legal Sex Male 10:11 PM WARPMAN Gender Identity Male 09/10/2023 7:48 AM WARPMAN Sexual Orientation Straight 09/10/2023 7: 48 AM WARPMAN documented as of this encounter Medications at [...] PM CDT Clinical Communication Virtual Review in [place] [address] [place] [address] 02/09/2025 9:30 AM CDT Telemedicine Department of Oncology in [address] [address] Jesica Wasserman M.B., B.Ch. [address] [place] [address] [place] [address] Cecily Nash L.I.C.SJustynW. [address] [place] [address] 02/10/2025 12:00 PM CDT Lab Department of Infusion Therapy in [place], [place] [address] [place] [phone] Skip Amaya M.D., Ph.D. [address] [place] [phone] 02/10/2025 2:30 PM CDT Office Visit Department of Oncology in [address] [address] Rosenda Garza MPAS, P.A.-C. [address] [place] [phone] 02/11/2025 8:00 AM CDT Infusion Department of Oncology in [address] [address] Skip Amaya M.D., Ph.D. [address] [place] [phone] 02/23/2025 2:15 PM CDT Clinical Communication Virtual Review in [place], [place] [address] [place] [address] 02/25/2025 8:30 AM CDT Lab Department of Oncology in [address] [address] Skip Amaya M.D., Ph.D. [address] [place] [phone] 02/25/2025 10:40 AM CDT Office Visit Department of Oncology in [address] [address] Sandy Judge APRN, C.N.P., M.S. [address] [place] [phone] 02/25/2025 11:30 AM CDT Infusion Department of Oncology in [place], [place] [address] [place] [phone] Skip Amaya M.D., Ph.D. [address] [place] [phone] 03/04/2025 6:00 AM CDT Lab Department of Infusion Therapy in [address] [address] Skip Amaya M.D., Ph.D. [address] [place] [phone] 03/04/2025 8:10 AM CDT Office Visit Department of Oncology in [address] [phone] Jie Shook P.A.-C. [address] [place] [phone] 03/04/2025 9:30 AM CDT Infusion Department of Oncology in [address] [address] Skip Amaya M.D., Ph.D. [address] [place] [phone] 03/10/2025 2:15 PM CDT Clinical Communication Virtual Review in [place], [place] [address] [place] [address] 03/11/2025 6:00 AM CDT Lab Department of Laboratory Medicine and Pathology, [facility], in [address] [address] Skip Amaya M.D., Ph.D. [address] [place] [phone] 03/11/2025 7:20 AM CDT Office Visit Department of Oncology in [place], [place] [address] [place] [phone] Bipin Leal P.A.-C., M.S. [address] [place] [phone] 03/11/2025 8:00 AM CDT Infusion Department of Oncology in [place], [place] [address] [place] [phone] Skip Amaya M.D., Ph.D. [address] [place] [phone] 03/24/2025 7:30 AM CDT Appointment Department of Radiology, [facility], in [place], [place] [address] [place] [phone] Skip Amaya M.D., Ph.D. [address] [place] [phone] 03/24/2025 11:20 AM CDT Lab Department of Infusion Therapy in [place], [place] [address] [place] [phone] Skip Amaya M.D., Ph.D. [address] [place] [phone] 03/24/2025 1:30 PM CDT Office Visit Department of Oncology in [place], [place] [address] [place] [phone] Skip Amaya M.D., Ph.D. [address] [place] [phone] 03/25/2025 7:00 AM CDT Infusion Department of Oncology in [place], [place] [address] [place] [phone] Skip Amaya M.D., Ph.D. [address] [place] [phone] 03/29/2025 2:30 PM CDT Clinical Communication Virtual Review in [place], [place] [address] [place] [address] 04/01/2025 6:00 AM CDT Lab Department of Infusion Therapy in [place], [place] [address] [place] [phone] Skip Amaya M.D., Ph.D. [address] [place] [phone] 04/01/2025 8:20 AM CDT Office Visit Department of Oncology in [place], [place] [address] [place] [phone] Precious Hill M.D., Ph.D. [address] [place] [phone] 04/01/2025 9:00 AM CDT Infusion Department of Oncology in [address] [address] Skip Amaya M.D., Ph.D. [address] [place] [phone] 04/07/2025 11:00 AM CDT Lab Department of Infusion Therapy in [place], [place] [address] [place] [phone] Skip Amaya M.D., Ph.D. [address] [place] [phone] 04/07/2025 1:20 PM CDT Office Visit Department of Oncology in [place], [place] [address] [place] [phone] Sandy Judge APRN, C.N.P., M.S. [address] [place] [phone] 04/08/2025 7:00 AM CDT Infusion Department of Oncology in [place], [place] [address] [place] [phone] Skip Amaya M.D., Ph.D. [address] [place] [phone] 04/21/2025 7:15 AM CDT Clinical Communication Virtual Review in [place], [place] [address] [place] [address] 04/22/2025 7:20 AM CDT Lab Department of Infusion Therapy in [place], [place] [address] [place] [phone] Skip Amaya M.D., Ph.D. [address] [place] [phone] 04/22/2025 9:20 AM CDT Office Visit Department of Oncology in [address] [phone] Sandy Judge APRN, C.N.P., M.S. [address] [place] [phone] 04/22/2025 10:30 AM CDT Infusion Department of Oncology in [address] [address] Skip Amaya M.D., Ph.D. [address] [place] [phone] 04/29/2025 11:15 AM CDT Lab Department of Oncology in [address] [address] Skip Amaya M.D., Ph.D. [address] [place] [phone] 04/29/2025 1:20 PM CDT Office Visit Department of Oncology in [place], [place] [address] [place] [phone] Sandy Judge, KASH, C.N.P., M.S. [address] [place] [phone] 04/29/2025 2:00 PM CDT Infusion Department of Oncology in [place], [place] [address] [place] [phone] Skip Amaya M.D., Ph.D. [address] [place] [phone] documented as of this encounter Goals Goal Patient Goal Type Associated Problems Recent Progress Patient-Stated? Author Autogenerat ed Goal Care Plan Autogenerated Problem No Hedy Lees, R.N. documented as of this encounter Procedures [...] suspicious peripancreatic and periportal lymph nodes. Garland Porter M.D. IMG CT PROCEDURES Final Result documented in this [...] documented as of this encounter Care Teams Apple Checker Relationship Specialty Start Date End Date Elsewhere, Pcp PCP - General Internal Medicine 09/09/23 documented as of this encounter
--- OUTSIDE RECORDS SUMMARY | 2024-12-29 08:00 | XMS_ITS | Encounter Summary ---
Author Organization [facility] Address [address] [place] [address] Care Team Providers Care Medical Lab Specialist Name Role Phone Elsewhere, Pcp Primary Care Provider Unavailabl e Reason for Referral * Outpatient (Routine) - Closed Specialty Diagnoses / Procedures Referred By Contomid carlisle Referred To Contact Medical Oncology / Oncology Diagnoses Mass Pancreas Drea Means APRN, C.N.P., D.N.P. [address] [place] [address] Phone: tel: fax: [facility] Region Referral ID Status Reason Start Date Expiration Date Visits Re quested Visits Authorized [id number] Closed 12/29/2024 06/30/2026 1 1 Reason for Visit * Appointment Request (Routine) - Authorized Specialty Diagnoses / Procedures Referred By Contact Referred To Contact Gastroenterology and Hepatology Diagnoses Malignant Neoplasm Of Pancreas Adenocarcinoma (HCC) Secondary Malignant Neoplasm Liver (HCC) Pain Right Upper Quadrant Loss Weight Abnormal Anorexia Non Psychogenic Hepatomegaly Mass Hepatic Marcela Alberto M.D. [address] [place] [phone] Phone: tel:[phone] fax:[phone] Referral ID Status Reason Start Date Expiration Date V isits Requested Visits Authorized [id number] Authorized 12/21/2024 03/23/2026 2 2 Encounter Details Date Type Department Care Team (Latest Contact Info) Description 12/29/2024 8:00 AM CDT Comprehensive Visit Division of Gastroenterology in [place], [place] [address] [place] [address] Drea Means APRN, C.N.P., D.N.P. [address] [place] [address] Mass Pancreas (Primary Dx) Social History Tobacco Use Types Packs/Day Years Used Date Smoking Tobacco: Never Passive Smoke Exposure: Past Smokeless Tobacco: Never Passive Exposure Comments:Ch ildhood exposure. Alcohol Use Standard Drinks/Week Comments Not Currently 1 (1 standard drink = 0.6 oz pur e alcohol) 0-1 drink per week [facility] Utilities Answer Date Recorded In the past 12 months has e [employer], gas, oil, or water [employer] threatened to shut off services in your [...] your living situation today? I have a [facility] place to live 12/23/2024 Sex and Gender Information Value Date Recorded Sex Assigned at Male 09/10/2023 7:48 AM LINOTYPER Legal Sex Male 10:11 PM LINOTYPER Gender Identity Male 09/10/2023 7:48 AM LINOTYPER Sexual Orientation Straight 09/10/2023 7: 48 AM LINOTYPER documented as of this encounter Last Filed [...] gout. Per pancreas nurse pre-visit note, Mr. Mccann referred to [facility] for a pancreatic mass. Noel reports seeking [...] 0.9 mg/dL 12/21/2024 Ca 19-9: 15,462* U/mL [facility] Reference Range & Units 12/28/24 10:35 Hemoglobin [...] (H) Carbohydrate Ag 19-9, S <35 U/mL 17133 (H) Cell-free DNA KRAS 12, 13, 61,146, [...] scheduled with medical GI oncology at [facility] 02/22 however the patient's and daughter requested his oncology appointment be completed at [facility] which is closer to home and where his daughter works. Upcoming appointments: clinical genomics 12/29/2024, ultrasound liver biopsy 12/30/2024, oncology 02/22/2025, Signs and symptoms warranting further evaluation including jaundice, unintentional weight loss, newonset diabetes, severe abdominal pain/episode of pancreatitis were discussed. All questions were answered to the best of my ability. Patient was in agreement with the plan. wardrobe image consultant: Dr. Worthy I spent 40 minutes face to face and non-face to face caring for the patient today. documented in this encounter Plan of Treatment Upcoming Encounters Date Type Department Care Team (Latest Contact Info) Description 02/08/2025 2:15 PM CDT Clinical Communication Virtual Review in [address] [phone] 02/09/2025 9:30 AM CDT Telemedicine Department of Oncology in [address] [phone] Jesica Wasserman M.B., B.Ch. [address] [place] [phone] Cecily Nash L.I.C.S.W. [address] [place] [phone] 02/10/2025 12:00 PM CDT Lab Department of Infusion Therapy in [place], [place] [address] [place] [phone] Skip Amaya M.D., Ph.D. [address] [place] [phone] 02/10/2025 2:30 PM CDT Office Visit Department of Oncology in [address] [phone] Rosenda Garza MPAS, P.A.-C. [address] [place] [phone] 02/11/2025 8:00 AM CDT Infusion Department of Oncology in [address] [phone] Skip Amaya M.D., Ph.D. [address] [place] [phone] 02/23/2025 2:15 PM CDT Clinical Communication Virtual Review in [place], [place] 200 [place] [address] 02/25/2025 8:30 AM CDT Lab Department of Oncology in [address] [phone] Skip Amaya M.D., Ph.D. [address] [place] [phone] 02/25/2025 10:40 AM CDT Office Visit Department of Oncology in [address] [phone] Sandy Judge APRN, C.N.P., M.S. [address] [place] [phone] 02/25/2025 11:30 AM CDT Infusion Department of Oncology in [address] [address] Skip Amaya M.D., Ph.D. [address] [place] [phone] 03/04/2025 6:00 AM CDT Lab Department of Infusion Therapy in [place], [place] [address] [place] [phone] Skip Amaya M.D., Ph.D. [address] [place] [phone] 03/04/2025 8:10 AM CDT Office Visit Department of Oncology in [address] [phone] Jie Shook P.A.-C. [address] [place] [phone] 03/04/2025 9:30 AM CDT Infusion Department of Oncology in [address] [address] Skip Amaya M.D., Ph.D. [address] [place] [phone] 03/10/2025 2:15 PM CDT Clinical Communication Virtual Review in [place], [place] 200 [place] [address] 03/11/2025 6:00 AM CDT Lab Department of Laboratory Medicine and Pathology, [facility], in [address] [address] Skip Amaya M.D., Ph.D. [address] [place] [phone] 03/11/2025 7:20 AM CDT Office Visit Department of Oncology in [address] [address] Bipin Leal P.A.-C., M.S. [address] [place] [phone] 03/11/2025 8:00 AM CDT Infusion Department of Oncology in [place], [place] [address] [place] [phone] Skip Amaya M.D., Ph.D. [address] [place] [phone] 03/24/2025 7:30 AM CDT Appointment Department of Radiology, [facility], in [place], [place] [address] [place] [phone] Skip Amaya M.D., Ph.D. [address] [place] [phone] 03/24/2025 11:20 AM CDT Lab Department of Infusion Therapy in [place], [place] [address] [place] [phone] Skip Amaya M.D., Ph.D. [address] [place] [phone] 03/24/2025 1:30 PM CDT Office Visit Department of Oncology in [place], [place] [address] [place] [phone] Skip Amaya M.D., Ph.D. [address] [place] [phone] 03/25/2025 7:00 AM CDT Infusion Department of Oncology in [place], [place] [address] [place] [phone] Skip Amaya M.D., Ph.D. [address] [place] [phone] 03/29/2025 2:30 PM CDT Clinical Communication Virtual Review in [place], [place] 200 [place] [address] 04/01/2025 6:00 AM CDT Lab Department of Infusion Therapy in [place], [place] [address] [place] [phone] Skip Amaya M.D., Ph.D. [address] [place] [phone] 04/01/2025 8:20 AM CDT Office Visit Department of Oncology in [place], [place] [address] [place] [phone] Precious Hill M.D., Ph.D. [address] [place] [phone] 04/01/2025 9:00 AM CDT Infusion Department of Oncology in [place], [place] [address] [place] [phone] Skip Amaya M.D., Ph.D. [address] [place] [phone] 04/07/2025 11:00 AM CDT Lab Department of Infusion Therapy in [place], [place] [address] [place] [phone] Skip Amaya M.D., Ph.D. [address] [place] [phone] 04/07/2025 1:20 PM CDT Office Visit Department of Oncology in [place], [place] [address] [place] [phone] Sandy Judge, KASH, C.N.P., M.S. [address] [place] [phone] 04/08/2025 7:00 AM CDT Infusion Department of Oncology in [place], [place] [address] [place] [phone] Skip Amaya M.D., Ph.D. [address] [place] [phone] 04/21/2025 7:15 AM CDT Clinical Communication Virtual Review in [place], [place] 200 [place] [address] 04/22/2025 7:20 AM CDT Lab Department of Infusion Therapy in [place], [place] [address] [place] [phone] Skip Amaya M.D., Ph.D. [address] [place] [phone] 04/22/2025 9:20 AM CDT Office Visit Department of Oncology in [address] [address] Sandy Judge, KASH, C.N.P., M.S. [address] [place] [phone] 04/22/2025 10:30 AM CDT Infusion Department of Oncology in [address] [phone] Skip Amaya M.D., Ph.D. [address] [place] [phone] 04/29/2025 11:15 AM CDT Lab Department of Oncology in [address] [address] Skip Amaya M.D., Ph.D. [address] [place] [phone] 04/29/2025 1:20 PM CDT Office Visit Department of Oncology in [address] [phone] Sandy Judge APRN, C.N.P., M.S. [address] [place] [address] 04/29/2025 2:00 PM CDT Infusion Department of Oncology in [place], [place] [address] [place] [address] Skip Amaya M.D., Ph.D. [address] [place] [address] Scheduled Referrals Name Type Priority Associated Diagnoses [...] documented as of this encounter Care Teams Medical Lab Specialist Relationship Specialty Start Date End Date Elsewhere, Pcp PCP - General Internal Medicine 09/09/23 documented as of this encounter
--- OUTSIDE RECORDS SUMMARY | 2024-12-29 12:30 | XMS_ITS | Encounter Summary ---
Author Organization [facility] Address [address] [place] [address] Care Team Providers Care Telecommunications Network Engineer Name Role Phone Elsewhere, Pcp Primary Care Provider Unavailabl e Reason for Visit * Outpatient (Routine) - Closed Specialty Diagnoses / Procedures Referred By Meeta carlisle Referred To Contact Clinical Genomics Diagnoses Mass Pancreas Garland Porter M.D. [address] [place] [phone] Phone: tel: fax: [facility] Referral ID Status Reason Start Date Expiration Date Visits Re quested Visits Authorized [id number] Closed 12/24/2024 06/25/2026 1 1 Encounter Details Date Type Department Care Team (Late st Contact Info) Description 12/29/2024 12:30 PM CDT Comprehensive Visit Department of Medical Genetics in [place], [place] [address] [place] [phone] Garland Porter M.D. [address] [place] [phone] Es Benson Unlicensed MA Mass Pancreas Social History Tobacco Use Types Packs/Day Years Used Date Smoking Tobacco: Never Passive Smoke Exposure: Past Smokeless Tobacco: Never Passive Exposure Comments:Ch ildhood exposure. Alcohol Use Standard Drinks/Week Comments Not Currently 1 (1 standard drink = 0.6 oz pur e alcohol) 0-1 drink per week [facility] Utilities Answer Date Recorded In the [...] your living situation today? I have a [facility] place to live 12/23/2024 Sex and Gender Information Value Date Recorded Sex Assigned at Male 09/10/2023 7:48 AM PUBLIC AREA ATTENDANT Legal Sex Male 10:11 PM PUBLIC AREA ATTENDANT Gender Identity Male 09/10/2023 7:48 AM PUBLIC AREA ATTENDANT Sexual Orientation Straight 09/10/2023 7: 48 AM PUBLIC AREA ATTENDANT documented as of this encounter Progress Notes [...] PM CDT Clinical Communication Virtual Review in [address] [phone] 02/09/2025 9:30 AM CDT Telemedicine Department of Oncology in [address] [phone] Jesica Wasserman M.B., B.Ch. [address] [place] [phone] Cecily Nash L.I.DorinaS.W. [address] [place] [phone] 02/10/2025 12:00 PM CDT Lab Department of Infusion Therapy in [address] [address] Skip Amaya M.D., Ph.D. [address] [place] [phone] 02/10/2025 2:30 PM CDT Office Visit Department of Oncology in [address] [phone] Rosenda Garza, MORENA, P.A.-C. [address] [place] [phone] 02/11/2025 8:00 AM CDT Infusion Department of Oncology in [address] [address] Skip Amaya M.D., Ph.D. [address] [place] [phone] 02/23/2025 2:15 PM CDT Clinical Communication Virtual Review in [address] [phone] 02/25/2025 8:30 AM CDT Lab Department of Oncology in [place], [place] [address] [place] [phone] Skip Amaya M.D., Ph.D. [address] [place] [phone] 02/25/2025 10:40 AM CDT Office Visit Department of Oncology in [place], [place] [address] [place] [phone] Sandy Judge, KASH, C.N.P., M.S. [address] [place] [phone] 02/25/2025 11:30 AM CDT Infusion Department of Oncology in [place], [place] [address] [place] [phone] Skip Amaya M.D., Ph.D. [address] [place] [phone] 03/04/2025 6:00 AM CDT Lab Department of Infusion Therapy in [address] [address] Skip Amaya M.D., Ph.D. [address] [place] [phone] 03/04/2025 8:10 AM CDT Office Visit Department of Oncology in [place], [place] [address] [place] [phone] Jie Shook P.A.-C. [address] [place] [phone] 03/04/2025 9:30 AM CDT Infusion Department of Oncology in [place], [place] [address] [place] [phone] Skip Amaya M.D., Ph.D. [address] [place] [phone] 03/10/2025 2:15 PM CDT Clinical Communication Virtual Review in [place], [place] 200 [place] [address] 03/11/2025 6:00 AM CDT Lab Department of Laboratory Medicine and Pathology, [facility] in [place], [place] [address] [place] [phone] Skip Amaya M.D., Ph.D. [address] [place] [phone] 03/11/2025 7:20 AM CDT Office Visit Department of Oncology in [place], [place] [address] [place] [phone] Bipin Leal P.A.-C., M.S. [address] [place] [phone] 03/11/2025 8:00 AM CDT Infusion Department of Oncology in [place], [place] [address] [place] [phone] Skip Amaya M.D., Ph.D. [address] [place] [phone] 03/24/2025 7:30 AM CDT Appointment Department of Radiology, [facility] in [place], [place] [address] [place] [phone] Skip Amaya M.D., Ph.D. [address] [place] [phone] 03/24/2025 11:20 AM CDT Lab Department of Infusion Therapy in [address] [phone] Skip Amaya M.D., Ph.D. [address] [place] [phone] 03/24/2025 1:30 PM CDT Office Visit Department of Oncology in [place], [place] [address] [place] [phone] Skip Amaya M.D., Ph.D. [address] [place] [phone] 03/25/2025 7:00 AM CDT Infusion Department of Oncology in [place], [place] [address] [place] [phone] Skip Amaya M.D., Ph.D. [address] [place] [phone] 03/29/2025 2:30 PM CDT Clinical Communication Virtual Review in [place], [place] 200 [place] [address] 04/01/2025 6:00 AM CDT Lab Department of Infusion Therapy in [place], [place] [address] [place] [phone] Skip Amaya M.D., Ph.D. [address] [place] [phone] 04/01/2025 8:20 AM CDT Office Visit Department of Oncology in [place], [place] [address] [place] [phone] Precious Hill M.D., Ph.D. [address] [place] [phone] 04/01/2025 9:00 AM CDT Infusion Department of Oncology in [address] [phone] Skip Amaya M.D., Ph.D. [address] [place] [phone] 04/07/2025 11:00 AM CDT Lab Department of Infusion Therapy in [place], [place] [address] [place] [phone] Skip Amaya M.D., Ph.D. [address] [place] [phone] 04/07/2025 1:20 PM CDT Office Visit Department of Oncology in [place], [place] [address] [place] [phone] Sandy Judge APRN, C.N.P., M.S. [address] [place] [phone] 04/08/2025 7:00 AM CDT Infusion Department of Oncology in [place], [place] [address] [place] [phone] Skip Amaya M.D., Ph.D. [address] [place] [phone] 04/21/2025 7:15 AM CDT Clinical Communication Virtual Review in [place], [place] 200 [place] [address] 04/22/2025 7:20 AM CDT Lab Department of Infusion Therapy in [place], [place] [address] [place] [phone] Skip Amaya M.D., Ph.D. [address] [place] [phone] 04/22/2025 9:20 AM CDT Office Visit Department of Oncology in [address] [phone] Sandy Judge APRN, C.N.P., M.S. [address] [place] [phone] 04/22/2025 10:30 AM CDT Infusion Department of Oncology in [place], [place] [address] [place] [phone] Skip Amaya M.D., Ph.D. [address] [place] [phone] 04/29/2025 11:15 AM CDT Lab Department of Oncology in [place], [place] [address] [place] [phone] Skip Amaya M.D., Ph.D. [address] [place] [phone] 04/29/2025 1:20 PM CDT Office Visit Department of Oncology in [place], [place] [address] [place] [phone] Sandy Judge, KASH, C.N.P., M.S. [address] [place] [phone] 04/29/2025 2:00 PM CDT Infusion Department of Oncology in [place], [place] [address] [place] [phone] Skip Amaya M.D., Ph.D. [address] [place] [phone] documented as of this encounter Goals Goal Patient Goal Type Associated Problems Recent Progress Patient-Stated? Author Autogenerat ed Goal Care Plan Autogenerated Problem No Hedy Lees R.N. documented as of this encounter Visit Diagnoses Diagnosis Mass Pancreas documented in this encounter Additional Health Concerns Active Problems Noted Date Diagnosed Date Autogenerated Problem 11/16/2024 documented as of this encounter Care Teams Telecommunications Network Engineer Relationship Specialty Start Date End Date Elsewhere, Pcp PCP - General Internal Medicine 09/09/23 documented as of this encounter
--- OUTSIDE RECORDS SUMMARY | 2024-12-29 12:42 | XMS_ITS | Encounter Summary ---
Author Organization [facility] Address [address] [place] [address] Care Team Providers Care Recycling Manager Name Role Phone Elsewhere, Pcp Primary Care Provider Unavailabl e Encounter Details Date Type Department Care Team (Latest Contact Info) Description 12/29/2024 12:42 PM CDT - 12/29/2024 11:59 PM CDT Hospital Encounter Department of Laboratory Medicine and Pathology, [facility] in [place], [place] [address] [place] [address] Usman Borrego M.D. [address] [place] [address] Mass Pancreas Discharge Disposition: Home or Self Care Social History Tobacco Use Types Packs/Day Years Used Date Smoking Tobacco: Never Passive Smoke Exposure: Past Smokeless Tobacco: Never Passive Exposure Comments:Ch ildhood exposure. Alcohol Use Standard Drinks/Week Comments Not Currently 1 (1 standard drink = 0.6 oz pur e alcohol) 0-1 drink per week [facility] Utilities Answer Date Recorded In the past 12 months has [employer] electric, gas, oil, or water company threatened [...] your living situation today? [facility] 12/23/2024 Sex and Gender Information Value Date Recorded Sex Assigned at Male 09/10/2023 7:48 AM RELIEF SALESPERSON Legal Sex Male 10:11 PM RELIEF SALESPERSON Gender Identity Male 09/10/2023 7:48 AM RELIEF SALESPERSON Sexual Orientation Straight 09/10/2023 7: 48 AM RELIEF SALESPERSON documented as of this encounter Medications at [...] PM CDT Clinical Communication Virtual Review in [place], [place] [address] [place] [phone] 02/09/2025 9:30 AM CDT Telemedicine Department of Oncology in [address] [phone] Jesica Wasserman M.B., B.Ch. [address] [place] [phone] Cecily Nash L.I.C.S.W. [address] [place] [phone] 02/10/2025 12:00 PM CDT Lab Department of Infusion Therapy in [address] [phone] Skip Amaya M.D., Ph.D. [address] [place] [phone] 02/10/2025 2:30 PM CDT Office Visit Department of Oncology in [place], [place] [address] [place] [phone] Rosenda Garza MPAS, P.A.-C. [address] [place] [phone] 02/11/2025 8:00 AM CDT Infusion Department of Oncology in [address] [phone] Skip Amaya M.D., Ph.D. [address] [place] [phone] 02/23/2025 2:15 PM CDT Clinical Communication Virtual Review in [place], [place] [address] [place] [address] 02/25/2025 8:30 AM CDT Lab Department of Oncology in [place], [place] [address] [place] [phone] Skip Amaya M.D., Ph.D. [address] [place] [phone] 02/25/2025 10:40 AM CDT Office Visit Department of Oncology in [place], [place] [address] [place] [phone] Sandy Judge APRN, C.N.P., M.S. [address] [place] [phone] 02/25/2025 11:30 AM CDT Infusion Department of Oncology in [place], [place] [address] [place] [phone] Skip Amaya M.D., Ph.D. [address] [place] [phone] 03/04/2025 6:00 AM CDT Lab Department of Infusion Therapy in [address] [phone] Skip Amaya M.D., Ph.D. [address] [place] [phone] 03/04/2025 8:10 AM CDT Office Visit Department of Oncology in [address] [phone] Jie Shook P.A.-C. [address] [place] [phone] 03/04/2025 9:30 AM CDT Infusion Department of Oncology in [address] [phone] Skip Amaya M.D., Ph.D. [address] [place] [phone] 03/10/2025 2:15 PM CDT Clinical Communication Virtual Review in [place], [place] [address] [place] [address] 03/11/2025 6:00 AM CDT Lab Department of Laboratory Medicine and Pathology, [facility] in [address] [phone] Skip Amaya M.D., Ph.D. [address] [place] [phone] 03/11/2025 7:20 AM CDT Office Visit Department of Oncology in [address] [phone] Bipin Leal P.A.-Jordy., M.S. [address] [place] [phone] 03/11/2025 8:00 AM CDT Infusion Department of Oncology in [address] [phone] Skip Amaya M.D., Ph.D. [address] [place] [phone] 03/24/2025 7:30 AM CDT Appointment Department of Radiology, [facility] in [address] [phone] Skip Amaya M.D., Ph.D. [address] [place] [phone] 03/24/2025 11:20 AM CDT Lab Department of Infusion Therapy in [place], [place] [address] [place] [phone] Skip Amaya M.D., Ph.D. [address] [place] [phone] 03/24/2025 1:30 PM CDT Office Visit Department of Oncology in [address] [phone] Skip Amaya M.D., Ph.D. [address] [place] [phone] 03/25/2025 7:00 AM CDT Infusion Department of Oncology in [address] [address] Skip Amaya M.D., Ph.D. [address] [place] [phone] 03/29/2025 2:30 PM CDT Clinical Communication Virtual Review in [place], [place] [address] [place] [address] 04/01/2025 6:00 AM CDT Lab Department of Infusion Therapy in [address] [phone] Skip Amaya M.D., Ph.D. [address] [place] [phone] 04/01/2025 8:20 AM CDT Office Visit Department of Oncology in [address] [phone] Precious Hill M.D., Ph.D. [address] [place] [phone] 04/01/2025 9:00 AM CDT Infusion Department of Oncology in [address] [phone] Skip Amaya M.D., Ph.D. [address] [place] [phone] 04/07/2025 11:00 AM CDT Lab Department of Infusion Therapy in [address] [phone] Skip Amaya M.D., Ph.D. [address] [place] [phone] 04/07/2025 1:20 PM CDT Office Visit Department of Oncology in [address] [phone] Sandy Judge APRN, C.N.P., M.S. [address] [place] [phone] 04/08/2025 7:00 AM CDT Infusion Department of Oncology in [address] [phone] Skip Amaya M.D., Ph.D. [address] [place] [phone] 04/21/2025 7:15 AM CDT Clinical Communication Virtual Review in [place], [place] [address] [place] [address] 04/22/2025 7:20 AM CDT Lab Department of Infusion Therapy in [address] [phone] Skip Amaya M.D., Ph.D. [address] [place] [phone] 04/22/2025 9:20 AM CDT Office Visit Department of Oncology in [address] [phone] Sandy Judge APRN, C.NYoselin., M.S. [address] [place] [phone] 04/22/2025 10:30 AM CDT Infusion Department of Oncology in [place], [place] [address] [place] [phone] Skip Amaya M.D., Ph.D. [address] [place] [phone] 04/29/2025 11:15 AM CDT Lab Department of Oncology in [address] [phone] Skip Amaya M.D., Ph.D. [address] [place] [phone] 04/29/2025 1:20 PM CDT Office Visit Department of Oncology in [address] [phone] Sandy Judge APRN, C.NYoselin., M.S. [address] [place] [phone] 04/29/2025 2:00 PM CDT Infusion Department of Oncology in [address] [address] Skip Amaya M.D., Ph.D. [address] [place] [phone] documented as of this encounter Goals Goal Patient Goal Type Associated Problems Recent Progress Patient-Stated? Author Autogenerat ed Goal Care Plan Autogenerated Problem No Hedy Lees R.N. documented as of this encounter Procedures Procedure Name Priority Date/Time Associated Diagnosis Comments [facility]. [facility]ithink Routine 12/29/2024 12:53 PM CDT MISCELLANEOUS SENT OUT LAB TEST Routine 12/29/2024 12:50 PM CDT Mass Pancreas documented in this encounter Results * Misc. [employer] Sent Out Lab (12/29/2024 12:53 PM CDT) Test Name [facility] Custom + RNA Panel 12/29/2024 12:53 PM CDT INVC Result SEE COMMENT 01/05/2025 1:01 PM CDT INVC Comment: For final report, select Lab-Send Out Lab Results hyperlink below. 12/29/2024 12:5 3 PM CDT 12/29/2024 3:45 PM CDT Usman Borrego M.D. LAB MISC ORDERABLES Final Result [employer] [address] [address], [facility] INVC [employer] [address], [place] [address] * [id number] [facility] Custom + RNA Panel - Miscellaneous Test (12/29/2024 12:50 PM CDT) Test Name [facility] Custom + RNA Panel 12/29/2024 12:50 PM CDT HLS Result Specimen sent out; results to follow DEFAULT 12/29/2024 12:50 PM CDT HLS Blood (Blood, Venous) 12/29/2024 12:50 PM CDT 12/29/2024 12:50 PM CDT us Usman Borrego M.D. LAB MISC ORDERABLES Final Result [facility] [address] [place] [address], [place] HLS [facility] [address] [place] [address] documented in this encounter Visit Diagnoses Diagnosis Mass Pancreas documented in this encounter Additional Health Concerns Active Problems Noted Date Diagnosed Date Autogenerated Problem 11/16/2024 documented as of this encounter Care Teams Recycling Manager Relationship Specialty Start Date End Date Elsewhere, Pcp PCP - General Internal Medicine 09/09/23 documented as of this encounter
--- OUTSIDE RECORDS SUMMARY | 2024-12-29 13:00 | XMS_ITS | Encounter Summary ---
Author Organization [facility] Address [address] [place] [id number] Care Team Providers Care Element Burner Name Role Phone Elsewhere, Pcp Primary Care Provider Unavailabl e Reason for Visit * Outpatient (Routine) - Closed Specialty Diagnoses / Procedures Referred By Meeta carlisle Referred To Contact Clinical Genomics Diagnoses Mass Pancreas Garland Porter M.D. [address] [place] [phone] Phone: tel: fax: [facility] Referral ID Status Reason Start Date Expiration Date Visits Re quested Visits Authorized [id number] Closed 12/24/2024 06/25/2026 1 1 Encounter Details Date Type Department Care Team (Latest Contact Info) Description 12/29/2024 1:00 PM CDT Comprehensive Visit Department of Medical Genetics in [place], [place] [address] [place] [phone] Garland Porter M.D. [address] [place] [address] [phone] Danay Diaz M.S., [facility] [address] [place] [address] [phone] Mass Pancreas (Primary Dx) Social History Tobacco Use Types Packs/Day Years Used Date Smoking Tobacco: Never Passive Smoke Exposure: Past Smokeless Tobacco: Never Passive Exposure Comments:Ch ildhood exposure. Alcohol Use Standard Drinks/Week Comments Not Currently 1 (1 standard drink = 0.6 oz pur e alcohol) 0-1 drink per week [facility] Utilities Answer Date Recorded In the [...] things needed for daily living? No 12/23/2024 Depression Answer Date Recor ded PHQ-9 Total Score (max 27) 7 01/11 Housing Stability Answer Date Recorded What is your living situation today? I have a [facility] place to live 12/23/2024 Education Answer Date Recorded What is the highest level of school you have completed or the highest degree you have received? Master's degree (e.g., MA, MS, Katelyn, MEd, [employer] PROF[employer], KELLEE) 01/05/2025 Sex and Gender Information Value Date Recorded Sex Assigned at Male 09/10/2023 7:48 AM PLATEMAKER Legal Sex Male 10:11 PM PLATEMAKER Gender Identity Male 09/10/2023 7:48 AM PLATEMAKER Sexual Orientation Straight 09/10/2023 7: 48 AM PLATEMAKER documented as of this encounter Consult Notes * Danay Diaz MJustynS., [facility] - 12/29/2024 1:00 PM CDT Images from the original note were not included. REFERRING PROVIDER Garland Porter M.D. CHIEF COMPLAINT Personal diagnosis of pancreatic cancer HISTORY OF PRESENT ILLNESS Noel Cohen is a 69 y.o. male referred by Garland Porter M.D. due to a recent diagnosis of pancreatic cancer. Noel was diagnosed with pancreatic cancer at age 69. Final pathology demonstrated metastatic adenocarcinoma of the pancreas. Please see Dr. Garland Porter M.D.'s documentation for additional details ondisease course and treatment. The patient reports no additional personal history of cancer. The family history is significant for ovarian cancer, lung cancer, and a possible unspecified cancer. Please see family history section below for additional details. The patient attended today's consultation with their spouse and daughter. FAMILY HISTORY Es Benson assisted with today's consultation by documenting the family history. A detailed family history was obtained from the patient and a pedigree was constructed. The pedigree will be saved as a scanned document and available for viewing under the Media tab of [facility]. Our risk assessment is based upon medical and family history information as provided by the patient, and may change in the future should new information be obtained. Pedigree by 12/29/2024 Relevant History: -Sister: lung cancer -Maternal aunt: ovarian cancer, in 80s -Maternal grandfather: possible cancer otherwise unspecified, Pertinent Negatives: -Four daughters: no cancer, ages 36, 34, 31, and 28 -Five brothers and six additional sisters: no cancer, age range 60-80 -Mother: no cancer, age 95 -Father: no cancer, age 84 -No additional reported paternal or maternal family history of cancer -Unless listed above, to the patient's knowledge, no one in their family has had clinical hereditary cancer germline genetic testing -There is no reported consanguinity The patient's maternal ancestry is [place] ; the patient's paternal ancestry is [place] . IMPRESSION/REPORT/PLAN PATIENT EDUCATION Note: the terms male/man and female/woman refer to sex assigned at . As a part of this appointment, the patient viewed the Genetic Testing After a Cancer Diagnosis video for educational purposes. The topics covered in this video are summarized below. Cancer is a relatively common diagnosis in the general population, and the majority of these cancers are either sporadic or familial. Hereditary cancers are caused by mutations within a single cancersusceptibility gene. Families with hereditary cancers tend to have the following features: specifictypes of cancer in multiple close relatives and in several consecutive generations, early age at diagnosis (under 50), multiple primary or bilateral tumors, and/or a lack of environmental or other known risk factors. Approximately 1.5% of individuals will be diagnosed with pancreatic cancer during their lifetime, and an individual's risk may be altered by multiple risk factors, including smoking, obesity, diabetes, chronic pancreatitis, age (about two-thirds of individuals diagnosed with pancreatic cancer are at least 65 years old), and family history. While the majority of pancreatic cancers are thought to be sporadic, approximately 5-10% of pancreatic cancers are associated with a strong underlying hereditary susceptibility and typically occur in families with multiple affected individuals. Mutations inmultiple genes have been associated with a hereditary susceptibility to pancreatic cancer, including genes associated with hereditary breast and ovarian cancer (BRCA1 and BRCA2), the Cates syndrome genes (MLH1, MSH2, MSH6, PMS2, and EPCAM), PALB2 and HIRA, among others. We discussed the cancer risksand medical management guidelines associated with mutations in these genes. We discussed how these mutations are inherited through families. We briefly discussed that if the patient tests positive for a germline (i.e., hereditary) BRCA1 or BRCA2 mutation that they may qualify for use of PARP- inhibitors for future therapy. Identification of a BRCA1 or BRCA2 mutation may also predict response to [place]-based chemotherapy. If the patienttested positive for a mutation in another gene, this would be less likely to affect their current therapy, although they may be eligible for clinical trials. Treatment decisions are deferred to the patient's care team. We discussed testing panels that cover many genes known or thought to be associated with hereditaryor familial cancer. Mutations in some of the genes account for rare hereditary cancer syndromes that include significant risks for cancer, while other genes are currently thought of as modifier genesthat potentially increase the risk for cancer. There are several limitations of these tests. The exact cancer risks for some of the genes that are included on these panels are not known at this pointin time. Therefore, it may be difficult to provide appropriate screening/medical management recommendations. Additionally, there is a significant chance that a variant of uncertain significance may be identified. Laws governing genetic discrimination were discussed. Risks, benefits, and limitations of genetic testing were discussed. Implications of possible test results, including positive, negative, and variant of uncertain significance, were discussed. RISK ASSESSMENT The patient's personal and family history are suggestive of a genetic predisposition to cancer. Thepatient meets current National Comprehensive Cancer Network (NCCN) Testing Criteria for pancreatic cancer susceptibility genes. Genetic testing is warranted for the patient as results will help clarify their management and future cancer risks and, thus, will help direct decisions regarding cancer screening and prevention. Results could also potentially inform future treatment options for the patient. Genetic testing is most informative when it is first performed on a family member with a personal history of cancer, as is the case for this patient. NELIA Cohen elected to pursue the Multi-Cancer + RNA panel through [facility]. Noel will complete a blood draw today. The laboratory will bill the patient's insurance directly. Results will become available approximately 2-3 weeks from the release of testing. We will contact the patientwith the test results when they become available. Screening and management recommendations will be made for the patient and their family members at the time of results disclosure. All results will first be shared with the patient via the patient online portal. If results are negative or a variant of uncertain significance is identified, the patient will be contacted with results via the patient portal or by mailed letter by our genetic counseling assistants. If a pathogenic variant is identified, the patient will first be notified of the result via the portal by a genetic counselor and then a follow-up virtual visit (zoom video call) or an in- person visit will be scheduled to review the results in more detail. If results are complex, the patient will also be offered anin-person or video return visit. If genetic test results are negative or a variant of uncertain significance is identified, the following screening recommendations would apply for the patient and their relatives. PERSONAL AND FAMILY SCREENING It is important for the patient to continue to follow the cancer screening and treatment recommendations provided by physicians. Individuals in this family with a first- or second-degree relative with a history of pancreatic cancer may remain at an increased risk to develop pancreatic cancer based on their family history. Emerging data have examined the efficacy of pancreatic cancer screening in select individuals at increased risk for exocrine pancreatic cancer. Investigational options may be considered in select individuals at increased risk for pancreatic cancer. Options such as endoscopic ultrasonography (EUS) and/orMRI/magnetic resonance cholangiopancreatography are available. However, these screening protocols have significant limitations, and the benefits are still being researched. Current guidelines from the International Cancer of the Pancreas Screening Consortium (CAPS) state that an individual with one first degree relative with pancreatic cancer who also has a first degreerelative with pancreatic cancer is eligible for consideration of screening. CAPS suggests that surveillance should start between the ages of 50-55 or 10 years earlier than the youngest diagnosis of pancreatic cancer in the family. The National Comprehensive Cancer Network (v.3.2023) suggests pancreatic screening for those who have a family history of exocrine pancreatic cancer in >=1 first-degree and >=1 second-degree relatives from the same side of the family. Individuals at risk should be aware of potential symptoms of pancreatic cancer (bloating, abdominal pain, jaundice) and could consider a consultation in the pancreatic neoplasia clinic for more information on ongoing research on pancreatic cancer screening and available research registries. In the absence of a strong family history, screening is unlikely to be recommended. Individuals with ovaries who have a first- or second-degree relative diagnosed with ovarian cancer may remain at an elevated empiric risk to develop this cancer based on the family history. They may wish to discuss options for management and screening with a provider in gynecology. Individuals in this family with a first- or second-degree relative diagnosed with another type of cancer or tumor may remain at increased risk for these cancers and/or tumors given their family history. These individuals would be advised to share their family history with their care providers and discuss their screening options with their managing providers. These screening recommendations are based on national guidelines. Final screening recommendations should be deferred to the discretion of the managing physician. Other screening recommendations, suchas those made by the [place] [employer], do remain appropriate. It was a pleasure to meet Noel. The family is certainly welcome to contact us with any additional questions. PATIENT EDUCATION: All of the above was discussed in detail with the patient who verbalized understanding. The patient's questions were answered. Total time: 12 minutes documented in this encounter Plan of Treatment Upcoming Encounters Date Type Department Care Team (Latest Contact Info) Description 02/08/2025 2:15 PM CDT Clinical Communication Virtual Review in [place], [place] [address] [place] [phone] 02/09/2025 9:30 AM CDT Telemedicine Department of Oncology in [address] [phone] Jesica Wasserman M.B., B.Ch. [address] [place] [address] [phone] Cecily Nash L.I.C.SJustynW. [address] [place] [phone] 02/10/2025 12:00 PM CDT Lab Department of Infusion Therapy in [address] [phone] Skip Amaya M.D., Ph.D. [address] [place] [phone] 02/10/2025 2:30 PM CDT Office Visit Department of Oncology in [address] [phone] Rosenda Garza MPAS, P.A.-C. [address] [place] [phone] 02/11/2025 8:00 AM CDT Infusion Department of Oncology in [address] [phone] Skip Amaya M.D., Ph.D. [address] [place] [phone] 02/23/2025 2:15 PM CDT Clinical Communication Virtual Review in [address] [phone] 02/25/2025 8:30 AM CDT Lab Department of Oncology in [address] [phone] Skip Amaya M.D., Ph.D. [address] [place] [phone] 02/25/2025 10:40 AM CDT Office Visit Department of Oncology in [address] [phone] Sandy Judge APRN, C.N.P., M.S. [address] [place] [phone] 02/25/2025 11:30 AM CDT Infusion Department of Oncology in [place], [place] [address] [place] [phone] Skip Amaya M.D., Ph.D. [address] [place] [phone] 03/04/2025 6:00 AM CDT Lab Department of Infusion Therapy in [place], [place] [address] [place] [phone] Skip mAaya M.D., Ph.D. [address] [place] [phone] 03/04/2025 8:10 AM CDT Office Visit Department of Oncology in [place], [place] [address] [place] [phone] Jie Shook P.A.-C. [address] [place] [phone] 03/04/2025 9:30 AM CDT Infusion Department of Oncology in [place], [place] [address] [place] [phone] Skip Amaya M.D., Ph.D. [address] [place] [phone] 03/10/2025 2:15 PM CDT Clinical Communication Virtual Review in [place], [place] 200 [place] [address] 03/11/2025 6:00 AM CDT Lab Department of Laboratory Medicine and Pathology, [facility], in [place], [place] [address] [place] [phone] Skip Amaya M.D., Ph.D. [address] [place] [phone] 03/11/2025 7:20 AM CDT Office Visit Department of Oncology in [place], [place] [address] [place] [phone] Bipin Leal P.A.-C., M.S. [address] [place] [phone] 03/11/2025 8:00 AM CDT Infusion Department of Oncology in [place], [place] [address] [place] [phone] Skip Amaya M.D., Ph.D. [address] [place] [phone] 03/24/2025 7:30 AM CDT Appointment Department of Radiology, [facility], in [address] [phone] Skip Amaya M.D., Ph.D. [address] [place] [phone] 03/24/2025 11:20 AM CDT Lab Department of Infusion Therapy in [address] [address] Skip Amaya M.D., Ph.D. [address] [place] [phone] 03/24/2025 1:30 PM CDT Office Visit Department of Oncology in [place], [place] [address] [place] [phone] Skip Amaya M.D., Ph.D. [address] [place] [phone] 03/25/2025 7:00 AM CDT Infusion Department of Oncology in [place], [place] [address] [place] [phone] Skip Amaya M.D., Ph.D. [address] [place] [phone] 03/29/2025 2:30 PM CDT Clinical Communication Virtual Review in [place], [place] 200 [place] [address] 04/01/2025 6:00 AM CDT Lab Department of Infusion Therapy in [place], [place] [address] [place] [phone] Skip Amaya M.D., Ph.D. [address] [place] [phone] 04/01/2025 8:20 AM CDT Office Visit Department of Oncology in [place], [place] [address] [place] [phone] Precious Hill M.D., Ph.D. [address] [place] [phone] 04/01/2025 9:00 AM CDT Infusion Department of Oncology in [address] [address] Skip Amaya M.D., Ph.D. [address] [place] [phone] 04/07/2025 11:00 AM CDT Lab Department of Infusion Therapy in [address] [phone] Skip Amaya M.D., Ph.D. [address] [place] [phone] 04/07/2025 1:20 PM CDT Office Visit Department of Oncology in [place], [place] [address] [place] [phone] Sandy Judge APRN, C.N.P., M.S. [address] [place] [phone] 04/08/2025 7:00 AM CDT Infusion Department of Oncology in [place], [place] [address] [place] [phone] Skip Amaya M.D., Ph.D. [address] [place] [phone] 04/21/2025 7:15 AM CDT Clinical Communication Virtual Review in [place], [place] 200 [place] [address] 04/22/2025 7:20 AM CDT Lab Department of Infusion Therapy in [place], [place] [address] [place] [phone] Skip Amaya M.D., Ph.D. [address] [place] [phone] 04/22/2025 9:20 AM CDT Office Visit Department of Oncology in [place], [place] [address] [place] [phone] Sandy Judge APRN, C.N.Bhavin., M.S. [address] [place] [phone] 04/22/2025 10:30 AM CDT Infusion Department of Oncology in [place], [place] [address] [place] [phone] Skip Amaya M.D., Ph.D. [address] [place] [phone] 04/29/2025 11:15 AM CDT Lab Department of Oncology in [place], [place] [address] [place] [phone] Skip Amaya M.D., Ph.D. [address] [place] [phone] 04/29/2025 1:20 PM CDT Office Visit Department of Oncology in [place], [place] [address] [place] [phone] Sandy Judge APRN, C.N.P., M.S. [address] [place] [phone] 04/29/2025 2:00 PM CDT Infusion Department of Oncology in [place], [place] [address] [place] [phone] Skip Amaya M.D., Ph.D. [address] [place] [phone] documented as of this encounter Goals Goal Patient Goal Type Associated Problems Recent Progress Patient-Stated? Author Autogenerat ed Goal Care Plan Autogenerated Problem No Hedy Lees, RJustynNJustyn documented as of this encounter Results * [id number] [facility] Custom + RNA Panel - Miscellaneous Test (12/29/2024 12:50 PM CDT) Test Name [facility] Custom + RNA Panel 12/29/2024 12:50 PM CDT HLS Result Specimen sent out; results to follow DEFAULT 12/29/2024 12:50 PM CDT HLS Blood (Blood, Venous) 12/29/2024 12:50 PM CDT 12/29/2024 12:50 PM CDT Usman Borrego M.D. LAB MISC ORDERABLES Final Result [facility] [address] [place] [address], [place] HLS [facility] 200 [place] [address] documented in this encounter Visit Diagnoses Diagnosis Mass Pancreas- Primary documented in this encounter Additional Health Concerns Active Problems Noted Date Diagnosed Date Autogenerated Problem 11/16/2024 documented as of this encounter Care Teams Element Burner Relationship Specialty Start Date End Date Elsewhere, Pcp PCP - General Internal Medicine 09/09/23 documented as of this encounter
--- OUTSIDE RECORDS SUMMARY | 2024-12-30 09:58 | XMS_ITS | Encounter Summary ---
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 [address] [place] [address] Phone: tel: fax: 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 [address] [place] [address] Phone: tel: fax: [facility] Referral ID Status Reason Start Date Expiration Date Visits Re quested Visits Authorized [id number] Closed 12/27/2024 03/29/2026 1 1 Encounter Details Date Type Department Care Team (Latest Contact Info) Description 12/30/2024 9:58 AM CDT - 12/30/2024 1:24 PM CDT Hospital Encounter Department of Radiology, [facility], in [place], [place] [address] [place] [address] Drea Means APRN, C.N.P., D.N.P. [address] [place] [address] Malignant Neoplasm Of Pancreas Adenocarcinoma (HCC); Mass Pancreas Discharge Disposition: Home or Self Care Social History Tobacco Use Types Packs/Day Years Used Date Smoking Tobacco: Never Passive Smoke Exposure: Past Smokeless Tobacco: Never Passive Exposure Comments:Ch ildhood exposure. Alcohol Use Standard Drinks/Week Comments Not Currently 1 (1 standard drink = 0.6 oz pur e alcohol) 0-1 drink per week [facility] Utilities Answer Date Recorded In the past 12 months has [employer], gas, oil, or water [employer] threatened to shut off services in your [...] your living situation today? I have a [facility] place to live 12/23/2024 Sex and Gender Information Value Date Recorded Sex Assigned at Male 09/10/2023 7:48 AM POST ADOPTION COORDINATOR Legal Sex Male 10:11 PM POST ADOPTION COORDINATOR Gender Identity Male 09/10/2023 7:48 AM POST ADOPTION COORDINATOR Sexual Orientation Straight 09/10/2023 7: 48 AM POST ADOPTION COORDINATOR documented as of this encounter Last Filed Vital Signs Vital Sign Reading Time Taken Comments Blood Pressure 127/90 12/30/2024 1:00 PM CDT Pulse 96 12/30/2024 1:00 PM CDT Temperature 36.8 C (98.2 F) 12/30/2024 11:35 AM CDT Respiratory Rate 18 12/30/2024 12:15 PM CDT Oxygen Saturation 94% 12/30/2024 1:00 PM CDT Inhaled Oxygen Concentration - - Weight 95.5 kg (210 lb 8.6 oz) 12/30/2024 10:45 AM CDT Height - - Body Mass Index 28.52 12/29/2024 7:44 AM CDT documented in this encounter Discharge Instructions * Discharge Instr - Activity* Letty Christy P.A.-C. - 12/29/2024 4:04 PM CDT If you received sedation: After being sedated, it is common to have lapses of memory, slowed reaction time and impaired judgment. For these reasons, for 24 hours after being sedated: * Do not drive or operate motorized vehicles or equipment. * If you leave the hospital the same day as your procedure, stay within 30 miles of the hospital for one night. Have someone drive you to local lodging or home if within 30 miles. * Have a responsible adult stay with you the first 24 hours. * Do not return to work. * Do not take responsibility for small children or anyone who depends on your care. * Do not use exercise equipment, take part in rough play or in sports. * Do not drink alcoholic beverages. * Do not make important decisions or sign legal documents. Care for the percutaneous biopsy site Keep dressing in place over biopsy site for 24 hours. 24 hours after procedure, it is okay to shower. Remove the dressing and clean and rinse the puncture site gently with soap and water. Reapply a Band-Aid to the biopsy site or leave open to air. Do not submerge puncture site in water such as tub bathing or swimming until completely healed. Do not apply creams or lotions over biopsy sites for one week. Activity: No vigorous activities involving jumping or running for 24 hours. If you had a kidney or liver biopsy, you should limit lifting to < 10 lbs for 1 week. Medications Take all your previously prescribed medications other than blood thinners/ASA) as you normally do unless your physician tells you otherwise. Hold blood thinners for 24 hours. Seeking emergency care Contact your health care provider immediately or seek emergency care for the following symptoms: A temperature of 101 degrees Fahrenheit (38.3 degrees Celsius) or higher Severe abdominal pain Drainage that has blood in it for more than 24 hours. For nonemergent questions or concerns: If you have questions related to the procedure, please contact the [facility] nailhead operator ([phone]) and ask to be connected to the non-vascular interventional radiology fellow education teacher * Attachments The following attachments cannot be sent through Care Everywhere. * About Your Ultrasound-Guided Liver Biopsy documented in this encounter Medications at Time of Discharge [...] PM CDT Clinical Communication Virtual Review in [place], [place] [address] [place] [address] 02/09/2025 9:30 AM CDT Telemedicine Department of Oncology in [address] [phone] Jesica Wasserman M.B., B.Ch. [address] [place] [phone] Cecily Nash L.I.C.S.W. [address] [place] [phone] 02/10/2025 12:00 PM CDT Lab Department of Infusion Therapy in [address] [address] Skip Amaya M.D., Ph.D. [address] [place] [phone] 02/10/2025 2:30 PM CDT Office Visit Department of Oncology in [address] [address] Rosenda Garza MPAS, P.A.-C. [address] [place] [phone] 02/11/2025 8:00 AM CDT Infusion Department of Oncology in [address] [address] Skip Amaya M.D., Ph.D. [address] [place] [phone] 02/23/2025 2:15 PM CDT Clinical Communication Virtual Review in [place], [place] [address] [place] [address] 02/25/2025 8:30 AM CDT Lab Department of Oncology in [place], [place] [address] [place] [phone] Skip Amaya M.D., Ph.D. [address] [place] [phone] 02/25/2025 10:40 AM CDT Office Visit Department of Oncology in [address] [address] Sandy Judge, KASH, C.N.P., M.S. [address] [place] [phone] 02/25/2025 11:30 AM CDT Infusion Department of Oncology in [address] [address] Skip Amaya M.D., Ph.D. [address] [place] [phone] 03/04/2025 6:00 AM CDT Lab Department of Infusion Therapy in [address] [address] Skip Amaya M.D., Ph.D. [address] [place] [phone] 03/04/2025 8:10 AM CDT Office Visit Department of Oncology in [address] [phone] Jie Shook P.A.-C. [address] [place] [phone] 03/04/2025 9:30 AM CDT Infusion Department of Oncology in [place], [place] [address] [place] [phone] Skip Amaya M.D., Ph.D. [address] [place] [phone] 03/10/2025 2:15 PM CDT Clinical Communication Virtual Review in [place], [place] [address] [place] [address] 03/11/2025 6:00 AM CDT Lab Department of Laboratory Medicine and Pathology, [facility] in [place], [place] [address] [place] [phone] Skip Amaya M.D., Ph.D. [address] [place] [phone] 03/11/2025 7:20 AM CDT Office Visit Department of Oncology in [place], [place] [address] [place] [phone] Bipin Leal P.A.-C., M.S. [address] [place] [phone] 03/11/2025 8:00 AM CDT Infusion Department of Oncology in [place], [place] [address] [place] [phone] Skip Amaya M.D., Ph.D. [address] [place] [phone] 03/24/2025 7:30 AM CDT Appointment Department of Radiology, [facility] in [place], [place] [address] [place] [phone] Skip Amaya M.D., Ph.D. [address] [place] [phone] 03/24/2025 11:20 AM CDT Lab Department of Infusion Therapy in [place], [place] [address] [place] [phone] Skip Amaya M.D., Ph.D. [address] [place] [phone] 03/24/2025 1:30 PM CDT Office Visit Department of Oncology in [place], [place] [address] [place] [phone] Skip Amaya M.D., Ph.D. [address] [place] [phone] 03/25/2025 7:00 AM CDT Infusion Department of Oncology in [address] [address] Skip Amaya M.D., Ph.D. [address] [place] [phone] 03/29/2025 2:30 PM CDT Clinical Communication Virtual Review in [place], [place] [address] [place] [address] 04/01/2025 6:00 AM CDT Lab Department of Infusion Therapy in [place], [place] [address] [place] [phone] Skip Amaya M.D., Ph.D. [address] [place] [phone] 04/01/2025 8:20 AM CDT Office Visit Department of Oncology in [place], [place] [address] [place] [phone] Precious Hill M.D., Ph.D. [address] [place] [phone] 04/01/2025 9:00 AM CDT Infusion Department of Oncology in [place], [place] [address] [place] [phone] Skip Amaya M.D., Ph.D. [address] [place] [phone] 04/07/2025 11:00 AM CDT Lab Department of Infusion Therapy in [place], [place] [address] [place] [phone] Skip Amaya M.D., Ph.D. [address] [place] [phone] 04/07/2025 1:20 PM CDT Office Visit Department of Oncology in [address] [phone] Sandy Judge, KASH, C.N.P., M.S. [address] [place] [phone] 04/08/2025 7:00 AM CDT Infusion Department of Oncology in [address] [address] Skip Amaya M.D., Ph.D. [address] [place] [phone] 04/21/2025 7:15 AM CDT Clinical Communication Virtual Review in [place], [place] [address] [place] [address] 04/22/2025 7:20 AM CDT Lab Department of Infusion Therapy in [address] [address] Skip Amaya M.D., Ph.D. [address] [place] [phone] 04/22/2025 9:20 AM CDT Office Visit Department of Oncology in [place], [place] [address] [place] [phone] Sandy Judge APRN, C.N.P., M.S. [address] [place] [phone] 04/22/2025 10:30 AM CDT Infusion Department of Oncology in [place], [place] [address] [place] [phone] Skip Amaya M.D., Ph.D. [address] [place] [phone] 04/29/2025 11:15 AM CDT Lab Department of Oncology in [address] [address] Skip Amaya M.D., Ph.D. [address] [place] [phone] 04/29/2025 1:20 PM CDT Office Visit Department of Oncology in [address] [phone] Sandy Judge APRN, C.N.P., M.S. [address] [place] [phone] 04/29/2025 2:00 PM CDT Infusion Department of Oncology in [address] [phone] Skip Amaya M.D., Ph.D. [address] [place] [phone] documented as of this encounter Goals Goal Patient Goal Type Associated Problems Recent Progress Patient-Stated? Author Autogenerat ed Goal Care Plan Autogenerated Problem No Hedy Lees R.N. 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 NR [facility] KASH, C.N.P., D.N.P. IM US PROCEDURES Final Result * (ABNORMAL) Cytology Fine Needle Aspiration (including core biopsies) (12/30/2024 11:14 AM CDT) (A) 3:04 PM CDT DTL Disclaimer This test was developed and its performance characteristics determined by [facility] in a manner consistent with CLIA requirements. This test has not been cleared or approved by the U.S. Food and Drug Administration. Test results for (IHC or CALVIN) testing are valid for specimens fixed between 6 and 72 hours. Delay to fixation, under fixation or over fixation fall outside of guidelines and may affect these results. (A) 01/03/2025 3:04 PM CDT DTL Report electronically signed by Max Regalado M.D. I verify that I have examined all relevant slides/materials for the specimen(s) and rendered or confirmed the diagnosis. (A) 01/03/2025 3:04 PM CDT DTL Gross Description Received 4 alcohol-fixed smears and tissue. Additionally, received in formalin labeled with the patient's name, medical record number, and liver mass are four pale santiago-brown softtissue cores, 0.1 cm in average diameter and ranging from 1.4-2.0 cm in length. The specimens are submitted en toto in cassette A1-A2,two cores in each cassette. Grossed by AJB. (A) 01/03/2025 3:04 PM CDT DTL Source A. Liver, Mass, fine needle aspiration(A) 01/03/2025 3:04 PM CDT DTL Addendum Aura Tempus xT, Solid Tumor has been requested by Dr. Skip Amaya and will be performed on block A2 at [facility], [place], [place] Signed by Kurt Lindsay.B.S., Ph.D. 01/24/2025 4:04 PM The following test(s) will be performed in the [facility] at the request of Jesica Wasserman M.B., [facility]: MMR Protein, IHC Only, Tumor (IHC) Results will be reported separately in the patient's medical record. Signed by Marcela Merrill M.D. 01/06/2025 5:45 PM (A) 01/24/2025 4:04 PM CDT DTL Comment:REVISED RESULTS Interpretation A. Liver, Mass, fine needle aspiration (smears/core biopsy): Positive for malignancy. Adenocarcinoma. Potential primary sites include the pancreatobiliary tract or the upper gastrointestinal tract, among others. Clinical, radiologic, and endoscopic correlation is recommended. Immunostains and in situ hybridization (CALVIN) studies for albumin mRNA were performed on block A1. The neoplastic cells are positive for KRT7 and CDX2, while negative for Albumin CALVIN, KRT20, p40, arginase, TTF1 (8G7G3/1), NKX3.1, and PAX8. (A) 01/24/2025 4:04 PM CDT DTL Tissue (Liver) 12/30/2024 11 :14 AM CDT Drea Means APRN, C.N.P., D.N.P. 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 documented in this encounter Administered Medications Inactive Administered Medications - up to 3 most recent administrations Medication Order MAR Action Action Date Dose Rate Site acetaminophen tablet 1,000 mg (TylenoL) 1,000 mg, oral, Every 6 hours PRN, mild pain or score 1-3 of 10, Starting on Shandra 12/30/24 at 1148, (not to exceed 4 grams in 24 hours) Given 12/30/2024 12:06 PM CDT 1,000 mg fentaNYL injection 25 mcg (Sublimaze) 25 mcg, intravenous, Once as needed, severe pain or score 7-10 of 10, Starting on Shandra 12/30/24 at 1148, For 1 dose, For breakthrough pain unrelieved 30 minutes after PRN oral pain medication is used or if unable to take oral pain medication or if pain is greater than or equal to 7, use instead of oral pain medication. fentaNYL injection 25 mcg (Sublimaze) 25 mcg, intravenous, Once as needed, sedation, Starting on Shandra 12/30/24 at 1120, For 1 dose, Intraprocedure (RAD), IV Push Given 12/30/2024 11:21 AM CDT 25 mcg fentaNYL injection 25 mcg (Sublimaze) 25 mcg, intravenous, Every 2 min PRN, sedation, Administer over 1 minute immediately prior to the procedure. May repeat every 2 minutes to a maximum of 200 mcg, until pain score of 3 or less, or until the patient meets the pain comfort goal, or RASS 0 to -2. Do not give if respiratory rate is less than 8 breaths/minute., Starting on Shandra 12/30/24 at 1120, Intraprocedure (RAD), Subsequent doses Given 12/30/2024 11:22 AM CDT 25 mcg flumazeniL injection 0.2 mg (Romazicon) 0.2 mg, intravenous, Once as needed, reversal, Starting on Shandra 12/30/24 at 1120, For 1 dose, Intraprocedure (RAD), Administer once if patient has a RASS score of -4, -5 and has a respiratory rate less than 8 breaths/minute. Lactated Ringer's 20 mL/hr, intravenous, Once as needed, to keep vein open, Starting on Shandra 12/30/24 at 1120, For 1 dose, Intraprocedure (RAD) midazolam (PF) injection 0.25 mg (Versed) 0.25 mg, intravenous, Every 2 min PRN, sedation, RASS -2, Starting on Shandra 12/30/24 at 1120, For 3 hours, Intraprocedure (RAD), May repeat every 2 minutes to a maximum of 5 mg. Do not give if respiratory rate is less than 8 breaths/minute. midazolam (PF) injection 0.5 mg (Versed) 0.5 mg, intravenous, Once as needed, sedation, Starting on Shandra 12/30/24 at 1120, For 1 dose, Intraprocedure (RAD) midazolam (PF) injection 0.5 mg (Versed) 0.5 mg, intravenous, Every 2 min PRN, sedation, RASS -1, Starting on Shandra 12/30/24 at 1120, For 3 hours, Intraprocedure (RAD), May repeat every 2 minutes for a maximum of 5 mg. Do not give if respiratory rate is less than 8 breaths/minute. midazolam (PF) injection 1 mg (Versed) 1 mg, intravenous, Every 2 min PRN, sedation, RASS 0, Starting on Shandra 12/30/24 at 1120, For 3 hours, Intraprocedure (RAD), May repeat every 2 minutes for a maximum of 5 mg. Do not give if respiratory rate is less than 8 breaths/minute. Given 12/30/2024 11:21 AM CDT 1 mg naloxone injection 0.2 mg (Narcan) 0.2 mg, intravenous, Once as needed, respiratory depression, Starting on Shandra 12/30/24 at 1120, For 1 dose, Intraprocedure (RAD), Administer once if patient has a RASS score of -4, -5 and has a respiratory rate less than 8 breaths/minute. ondansetron (PF) injection 4 mg (Zofran) 4 mg, intravenous, Every 6 hours PRN, vomiting, nausea, Starting on Shandra 12/30/24 at 1148, Reassess for nausea or vomiting after at least 10 minutes. If nausea or vomiting persists administer next ordered antiemetic medications (order for antiemetic medication administration ondansetron then prochlorperazine). oxyCODONE IR tablet 10 mg (Roxicodone) 10 mg, oral, Every 4 hours PRN, severe pain or score 7-10 of 10, Starting on Shandra 12/30/24 at 1148 oxyCODONE IR tablet 5 mg (Roxicodone) 5 mg, oral, Every 4 hours PRN, moderate pain or score 4-6 of 10, Starting on Shandra 12/30/24 at 1148 sodium chloride 0.9 % injection 10 mL 10 mL, intravenous, As needed, line care, Starting on Shandra 12/30/24 at 1120, Intraprocedure (RAD), Peripheral Intravenous Catheter and Rapid Infusion Catheter, prior to blood sampling, post blood transfusion or post blood sampling sodium chloride 0.9 % injection 3 mL 3 mL, intravenous, As needed, line care, Starting on Shandra 12/30/24 at 1120, Intraprocedure (RAD), Prior to and following infusion and between multiple consecutive infusions: sodium chloride 0.9 % injection sodium chloride 0.9 % injection 3 mL 3 mL, intravenous, Every 12 hours scheduled, First dose on Shandra 12/30/24 at 2100, Intraprocedure (RAD), Peripheral Intravenous Catheter and Rapid Infusion Catheter, when no infusion to maintain patency documented in this encounter Active and Recently Administered Medications Times are shown in CDT. Scheduled Medication Order 12/28/2024 12/29/2024 12/30/2024 sodium chloride 0.9 % injection 3 mL 3 mL, intravenous, Every 12 hours scheduled, First dose on Shandra 12/30/24 at 2100, Intraprocedure (RAD), Peripheral Intravenous Catheter and Rapid Infusion Catheter, when no infusion to maintain patency PRN Medication Order 12/28/2024 12/29/2024 12/30/2024 acetaminophen tablet 1,000 mg (TylenoL) 1,000 mg, oral, Every 6 hours PRN, mild pain or score 1-3 of 10, Starting on Shandra 12/30/24 at 1148, (not to exceed 4 grams in 24 hours) 1206 (Given - Provid er: Marcela Morris R.N.) fentaNYL injection 25 mcg (Sublimaze) 25 mcg, intravenous, Once as needed, severe pain or score 7-10 of 10, Starting on Shandra 12/30/24 at 1148, For 1 dose, For breakthrough pain unrelieved 30 minutes after PRN oral pain medication is used or if unable to take oral pain medication or if pain is greater than or equal to 7, use instead of oral pain medication. fentaNYL injection 25 mcg (Sublimaze) (COMPLETED) 25 mcg, intravenous, Once as needed, sedation, Starting on Shandra 12/30/24 at 1120, For 1 dose, Intraprocedure (RAD), IV Push 1121 (Given - Provid er: Malliak Lund R.N.) fentaNYL injection 25 mcg (Sublimaze) 25 mcg, intravenous, Every 2 min PRN, sedation, Administer over 1 minute immediately prior to the procedure. May repeat every 2 minutes to a maximum of 200 mcg, until pain score of 3 or less, or until the patient meets the pain comfort goal, or RASS 0 to -2. Do not give if respiratory rate is less than 8 breaths/minute., Starting on Shandra 12/30/24 at 1120, Intraprocedure (RAD), Subsequent doses 1122 (Given - Provid er: Mallika Lund R.N.) flumazeniL injection 0.2 mg (Romazicon) 0.2 mg, intravenous, Once as needed, reversal, Starting on Shandra 12/30/24 at 1120, For 1 dose, Intraprocedure (RAD), Administer once if patient has a RASS score of -4, -5 and has a respiratory rate less than 8 breaths/minute. Lactated Ringer's 20 mL/hr, intravenous, Once as needed, to keep vein open, Starting on Shandra 12/30/24 at 1120, For 1 dose, Intraprocedure (RAD) midazolam (PF) injection 0.25 mg (Versed) 0.25 mg, intravenous, Every 2 min PRN, sedation, RASS -2, Starting on Shandra 12/30/24 at 1120, For 3 hours, Intraprocedure (RAD), May repeat every 2 minutes to a maximum of 5 mg. Do not give if respiratory rate is less than 8 breaths/minute. midazolam (PF) injection 0.5 mg (Versed) 0.5 mg, intravenous, Once as needed, sedation, Starting on Shandra 12/30/24 at 1120, For 1 dose, Intraprocedure (RAD) midazolam (PF) injection 0.5 mg (Versed) 0.5 mg, intravenous, Every 2 min PRN, sedation, RASS -1, Starting on Shandra 12/30/24 at 1120, For 3 hours, Intraprocedure (RAD), May repeat every 2 minutes for a maximum of 5 mg. Do not give if respiratory rate is less than 8 breaths/minute. midazolam (PF) injection 1 mg (Versed) 1 mg, intravenous, Every 2 min PRN, sedation, RASS 0, Starting on Shandra 12/30/24 at 1120, For 3 hours, Intraprocedure (RAD), May repeat every 2 minutes for a maximum of 5 mg. Do not give if respiratory rate is less than 8 breaths/minute. 1121 (Given - Provid er: Mallika Lund R.N.) naloxone injection 0.2 mg (Narcan) 0.2 mg, intravenous, Once as needed, respiratory depression, Starting on Shandra 12/30/24 at 1120, For 1 dose, Intraprocedure (RAD), Administer once if patient has a RASS score of -4, -5 and has a respiratory rate less than 8 breaths/minute. ondansetron (PF) injection 4 mg (Zofran) 4 mg, intravenous, Every 6 hours PRN, vomiting, nausea, Starting on Shandra 12/30/24 at 1148, Reassess for nausea or vomiting after at least 10 minutes. If nausea or vomiting persists administer next ordered antiemetic medications (order for antiemetic medication administration ondansetron then prochlorperazine). oxyCODONE IR tablet 10 mg (Roxicodone)(Linked Group 1) 10 mg, oral, Every 4 hours PRN, severe pain or score 7-10 of 10, Starting on Shandra 12/30/24 at 1148 oxyCODONE IR tablet 5 mg (Roxicodone)(Linked Group 1) 5 mg, oral, Every 4 hours PRN, moderate pain or score 4-6 of 10, Starting on Shandra 12/30/24 at 1148 sodium chloride 0.9 % injection 10 mL 10 mL, intravenous, As needed, line care, Starting on Shandra 12/30/24 at 1120, Intraprocedure (RAD), Peripheral Intravenous Catheter and Rapid Infusion Catheter, prior to blood sampling, post blood transfusion or post blood sampling sodium chloride 0.9 % injection 3 mL 3 mL, intravenous, As needed, line care, Starting on Shandra 12/30/24 at 1120, Intraprocedure (RAD), Prior to and following infusion and between multiple consecutive infusions: sodium chloride 0.9 % injection Linked Groups Order Group 1: oxyCODONE IR tablet 5 mg (Roxicodone)Jump to med 5 mg, oral, Every 4 hours PRN, moderate pain or score 4-6 of 10, Starting on Shandra 12/30/24 at 1148 Or oxyCODONE IR tablet 10 mg (Roxicodone)Jump to med 10 mg, oral, Every 4 hours PRN, severe pain or score 7-10 of 10, Starting on Shandra 12/30/24 at 1148 documented in this encounter Additional Health Concerns Active Problems Noted Date Diagnosed Date Autogenerated Problem 11/16/2024 documented as of this encounter Care Teams Window Shade Installer Relationship Specialty Start Date End Date Elsewhere, Pcp PCP - General Internal Medicine 09/09/23 documented as of this encounter
--- OUTSIDE RECORDS SUMMARY | 2025-01-05 14:00 | XMS_ITS | Encounter Summary ---
Author Organization [facility] Address [address] [place] [address] Care Team Providers Care Pharmaceutical Compounding Supervisor Name Role Phone Elsewhere, Pcp Primary [...] Access Device Placement Jesica Wasserman M.B., B.Ch. [address] [place] [address] Phone: tel: fax: [facility] Region Referral ID Status Reason Start Date Expiration Date Visits Re quested Visits Authorized [id number] Closed 01/05/2025 04/07/2026 1 1 * Outpatient [...] (HCC) Mass Pancreas Jesica Wasserman M.B., B.Ch. [address] [place] [phone] Phone: tel: fax: [facility] Referral ID Status Reason Start Date Expiration Date Visits Re quested Visits Authorized [id number] Closed 01/05/2025 07/07/2026 1 1 Reason for Visit * Reason Comments New Patient Pancreatic Cancer right side pain 1/10 more with cough ing * Outpatient (Routine) - Closed Specialty Diagnoses / Procedures Referred By Contomid t Referred To Contact Medical Oncology / Oncology Diagnoses Mass Pancreas Drea Means APRN, C.N.P., D.N.P. [address] [place] [phone] Phone: tel: fax: [facility] Referral ID Status Reason Start Date Expiration Date Visits Re quested Visits Authorized [id number] Closed 12/29/2024 06/30/2026 1 1 Encounter Details Date Type Department Care Team (Latest Contact Info) Description 01/05/2025 2:00 PM CDT Comprehensive Visit [place] [address] Jesica Wasserman M.B., B.Ch. [address] [place] [phone] Malignant Neoplasm Of Pancreas Tail (HCC) [...] pur e alcohol) 0-1 drink per week [facility] Utilities Answer Date Recorded In the past 12 months has e [employer], gas, oil, or water company threatened to [...] your living situation today? I have a [facility] place to live 12/23/2024 Education Answer Date Recorded What is the highest level of school you have completed or the highest degree you have received? Master's degree (e.g., MA, MS, Katelyn, MEd, SCHOOL BUS AIDE, KELLEE) 01/05/2025 Sex and Gender Information Value Date Recorded Sex Assigned at Male 09/10/2023 7:48 AM CONVEYOR MAINTENANCE MECHANIC Legal Sex Male 10:11 PM CONVEYOR MAINTENANCE MECHANIC Gender Identity Male 09/10/2023 7:48 AM CONVEYOR MAINTENANCE MECHANIC Sexual Orientation Straight 09/10/2023 7: 48 AM CONVEYOR MAINTENANCE MECHANIC documented as of this encounter Last Filed [...] CONSULT NOTE Primary Care Physician ELSEWHERE, PCP [facility] Oncologist Mariana Castro, B.Ch. Reason for Consult [...] phosphatase [place] 189. [place] 19- 9 [place] [id number]. [place] abdomen showed hepatic steatosis with a [...] potential excellent candidate for PRISM-1 trial and [facility] trials in [place]. He lives in [place], [place]. Excellent performance status and family support. I will refer him to our colleagues at [place] to evaluate for either of those two trials. Meanwhile we will place port.I also have sent him refill for oxycodone. If he is unable to enroll, I will treat him with standard modified FOLFIRINOX. Advance Care Planning Health Care Power of Gis Developer: Discussed with Noel Mata 2. Treatment Goals: [...] and non-face to face time. Jesica Wasserman [facility] documented in this encounter Miscellaneous Notes * Addendum Note - Angela Tubbs R.N. - 01/05/2025 2:00 PM CDTAddended by: ANGELA TUBBS on: 01/05/2025 02:41 PM Modules accepted: Orders documented in this encounter Plan of Treatment Upcoming Encounters Date Type Department Care Team (Latest Contact Info) Description 02/08/2025 2:15 PM CDT Clinical Communication Virtual Review in [place], [place] [address] [place] [address] 02/09/2025 9:30 AM CDT Telemedicine Department of Oncology in [place], [place] [address] [place] [address] Jesica Wasserman M.B., B.Ch. [address] [place] [address] Cecily Nash L.I.C.SJustynW. [address] [place] [address] 02/10/2025 12:00 PM CDT Lab Department of Infusion Therapy in [place], [place] [address] [place] [phone] Skip Amaya M.D., Ph.D. [address] [place] [phone] 02/10/2025 2:30 PM CDT Office Visit Department of Oncology in [place], [place] [address] [place] [phone] Rosenda Garza MPAS, P.A.-C. [address] [place] [phone] 02/11/2025 8:00 AM CDT Infusion Department of Oncology in [place], [place] [address] [place] [phone] Skip Amaya M.D., Ph.D. [address] [place] [phone] 02/23/2025 2:15 PM CDT Clinical Communication Virtual Review in [place], [place] [address] [place] [address] 02/25/2025 8:30 AM CDT Lab Department of Oncology in [place], [place] [address] [place] [phone] Skip Amaya M.D., Ph.D. [address] [place] [phone] 02/25/2025 10:40 AM CDT Office Visit Department of Oncology in [place], [place] [address] [place] [phone] Sandy Judge APRN, C.N.P., M.S. [address] [place] [phone] 02/25/2025 11:30 AM CDT Infusion Department of Oncology in [place], [place] [address] [place] [phone] Skip Amaya M.D., Ph.D. [address] [place] [phone] 03/04/2025 6:00 AM CDT Lab Department of Infusion Therapy in [place], [place] [address] [place] [phone] Skip Amaya M.D., Ph.D. [address] [place] [phone] 03/04/2025 8:10 AM CDT Office Visit Department of Oncology in [place], [place] [address] [place] [phone] Jie Shook P.A.-C. [address] [place] [phone] 03/04/2025 9:30 AM CDT Infusion Department of Oncology in [place], [place] [address] [place] [phone] Skip Amaya M.D., Ph.D. [address] [place] [phone] 03/10/2025 2:15 PM CDT Clinical Communication Virtual Review in [place], [place] [address] [place] [address] 03/11/2025 6:00 AM CDT Lab Department of Laboratory Medicine and Pathology, [facility], in [place], [place] [address] [place] [phone] Skip Amaya M.D., Ph.D. [address] [place] [phone] 03/11/2025 7:20 AM CDT Office Visit Department of Oncology in [place], [place] [address] [place] [phone] Bipin Leal P.A.-C., M.S. [address] [place] [phone] 03/11/2025 8:00 AM CDT Infusion Department of Oncology in [address] [address] Skip Amaya M.D., Ph.D. [address] [place] [phone] 03/24/2025 7:30 AM CDT Appointment Department of Radiology, [facility], in [address] [phone] Skip Amaya M.D., Ph.D. [address] [place] [phone] 03/24/2025 11:20 AM CDT Lab Department of Infusion Therapy in [address] [phone] Skip Amaya M.D., Ph.D. [address] [place] [phone] 03/24/2025 1:30 PM CDT Office Visit Department of Oncology in [place], [place] [address] [place] [phone] Skip Amaya M.D., Ph.D. [address] [place] [phone] 03/25/2025 7:00 AM CDT Infusion Department of Oncology in [place], [place] [address] [place] [phone] Skip Amaya M.D., Ph.D. [address] [place] [phone] 03/29/2025 2:30 PM CDT Clinical Communication Virtual Review in [place], [place] [address] [place] [address] 04/01/2025 6:00 AM CDT Lab Department of Infusion Therapy in [address] [phone] Skip Amaya M.D., Ph.D. [address] [place] [phone] 04/01/2025 8:20 AM CDT Office Visit Department of Oncology in [address] [phone] Precious Hill M.D., Ph.D. [address] [place] [phone] 04/01/2025 9:00 AM CDT Infusion Department of Oncology in [address] [address] Skip Amaya M.D., Ph.D. [address] [place] [phone] 04/07/2025 11:00 AM CDT Lab Department of Infusion Therapy in [address] [address] Skip Amaya M.D., Ph.D. [address] [place] [phone] 04/07/2025 1:20 PM CDT Office Visit Department of Oncology in [place], [place] [address] [place] [phone] Sandy Judge APRN, C.N.P., M.S. [address] [place] [phone] 04/08/2025 7:00 AM CDT Infusion Department of Oncology in [place], [place] [address] [place] [phone] Skip Amaya M.D., Ph.D. [address] [place] [phone] 04/21/2025 7:15 AM CDT Clinical Communication Virtual Review in [place], [place] [address] [place] [address] 04/22/2025 7:20 AM CDT Lab Department of Infusion Therapy in [place], [place] [address] [place] [phone] Skip Amaya M.D., Ph.D. [address] [place] [phone] 04/22/2025 9:20 AM CDT Office Visit Department of Oncology in [place], [place] [address] [place] [phone] Sandy Judge APRN, C.N.P., M.S. [address] [place] [phone] 04/22/2025 10:30 AM CDT Infusion Department of Oncology in [place], [place] [address] [place] [phone] Skip Amaya M.D., Ph.D. [address] [place] [phone] 04/29/2025 11:15 AM CDT Lab Department of Oncology in [place], [place] [address] [place] [phone] Skip Amaya M.D., Ph.D. [address] [place] [phone] 04/29/2025 1:20 PM CDT Office Visit Department of Oncology in [place], [place] [address] [place] [phone] Sandy Judge, KASH, C.N.P., M.S. [address] [place] [phone] 04/29/2025 2:00 PM CDT Infusion Department of Oncology in [place], [place] [address] [place] [phone] Skip Amaya M.D., Ph.D. [address] [place] [phone] Scheduled Referrals Name Type Priority Associated Diagnoses [...] medications. Patient education provided by a care software team leader. Patient was ready to learn with no [...] Vein Venogram: No Venous access device: 8 [place] single lumen PowerPort with non-valved open-ended catheter [...] medications. Patient education provided by a care software team leader. Patient was ready to learn withno apparent [...] Vein Venogram: No Venous access device: 8 Canadian single lumen PowerPort with gto-kixtjvjloo-oihmb catheter tip. Of note, this is not [...] 5 4:25 PM CDT DTL Tissue ID [id number] 5 4:25 PM CDT DTL Released By Annemarie Dugan M.D., Ph.D. 5 4:25 PM CDT DTL Result Summary INTACT PROTEIN EXPRESSION 5 4:25 PM CDT DTL Interpretation These results suggest the presence of normal DNA mismatch repair function within the tumor. However, these results do not completely rule out the possibility of defective DNA mismatch repair within the tumor because approximately 5% of cases with defective mismatch repair do not show absence of protein expression by IHC (Mod Pathol. 2019;33(5):871-879 (PMID: [id number])). THERAPEUTIC IMPLICATIONS Current data suggest that in advanced stage solid tumors, targeted immunotherapies such as anti-PD-1 therapies are more likely to be effective in mismatch repair-deficient tumors than in mismatch repair-proficient tumors (Science. 2017 Jan 31;357(7664):409- 413 (PMID 94256640); J Clin Oncol. 2018 Jul 26:[id number] (PMID [id number])). For interpretation of therapeutic implications of these [...] MLH-1 immunohistochemistry studies (anti-MLH-1 clone ES05, [employer], [place], [place]; Iglesia Optiview + Optiview AMP Detection) MSH-2 : specimen for MSH-2 immunohistochemistry studies (anti-MSH-2 clone FE11, [employer], [place], [place]; Leica Bello Polymer Refine Detection) MSH-6: specimen for MSH-6 immunohistochemistry studies (anti-MSH-6 clone SP93, [employer], [place], [place]; Iglesia Optiview Detection) PMS-2: specimen for PMS-2 immunohistochemistry studies (anti-PMS-2 clone EP51, [employer], [place], [place]; Iglesia Optiview + Optiview AMP Detection) [...] and its performance characteristics determined by [facility] in a manner consistent with CLIA requirements. This test has not been cleared or approved by the U.S. Food and Drug Administration. Tissue (Liver) 12/30/2024 11 :14 AM CDT 01/10/2025 11:17 AM CDT Jesica Peña B.Ch. LAB GENETIC TESTING Final Result [facility] [address] [place] [address], [facility] [address] [facility] [address] [place] [address] documented in this encounter Visit Diagnoses Diagnosis [...] documented as of this encounter Care Teams Pharmaceutical Compounding Supervisor Relationship Specialty Start Date End Date Elsewhere, Pcp PCP - General Internal Medicine 09/09/23 documented as of this encounter
--- OUTSIDE RECORDS SUMMARY | 2025-01-12 09:30 | XMS_ITS | Encounter Summary ---
Author Organization [facility] Address [address] [place] [address] Care Team Providers Care Mapping Editor Name Role Phone Elsewhere, Pcp Primary Care Provider Unavailabl e Reason for Referral * Behavioral Health (Routine) - Authorized Specialty Diagnoses / Procedures Referred By Meeta carlisle Referred To Contact Psychiatry / Psychiatry and Psychology Cecily Nash, L.I.C.S.W. [address] [place] [address] Phone: tel: fax: [facility] Referral ID Status Reason Start Date Expiration Date V isits Requested Visits Authorized [id number] Authorized 01/13/2025 07/15/2026 1 1 Reason for Visit * Behavioral Health (Routine) - Closed Specialty Diagnoses / Procedures Referred By Contac t Referred To Contact Psychiatry / Psychiatry and Psychology Diagnoses Malignant Neoplasm Of Pancreas Tail (HCC) Depression Major One Episode Moderate (HCC) Juliette Martinez M.S.Aster, L.I.C.S.W. [address] [place] [address] Phone: tel: [facility] Referral ID Status Reason Start Date Expiration Date Visits Re quested Visits Authorized [id number] Closed 01/10/2025 07/12/2026 1 1 Encounter Details Date Type Department Care Team (Late st Contact Info) Description 01/12/2025 9:30 AM CDT Telemedicine Department of Oncology in [place], [place] [address] [place] [address] Jesica Wasserman M.B., B.Ch. [address] [place] [phone] Cecily Nash L.I.C.S.W. [address] [place] [phone] Malignant Neoplasm Of Pancreas Tail (HCC); Depression Major One Episode Moderate (HCC) Social History Tobacco Use Types Packs/Day Years Used Date Smoking Tobacco: Never Passive Smoke Exposure: Past Smokeless Tobacco: Never Passive Exposure Comments: ildhood exposure. Alcohol Use Standard Drinks/Week Comments Not Currently 1 (1 standard drink = 0.6 oz pur e alcohol) 0-1 drink per week [facility] Utilities Answer Date Recorded In the past 12 months has [employer] electric, gas, oil, or water [employer] threatened to shut off services in your [...] your living situation today? I have a [facility] place to live 12/23/2024 Education Answer Date Recorded What is the highest level of school you have completed or the highest degree you have received? Master's degree (e.g., MA, MS, Katelyn, MEd, CHECK TOTALER, KELLEE) 01/05/2025 Sex and Gender Information Value Date Recorded Sex Assigned at Male 09/10/2023 7:48 AM BAR TENDER Legal Sex Male 10:11 PM BAR TENDER Gender Identity Male 09/10/2023 7:48 AM BAR TENDER Sexual Orientation Straight 09/10/2023 7: 48 AM BAR TENDER documented as of this encounter Progress Notes * Cecily Nash L.I.C.SCarroll - 01/12/2025 9:30 AM CDT Health and Behavior Psychosocial Assessment SUBJECTIVE Assessment Information Referral Source: Provider/Service Referral Name: Jesica Wasserman M.B., B. Referral Reason: Coping, adjustment and support, Psychosocial assessment, Distress screening tool Primary Language: Swiss Chief Warden Services Used: No Sexuality/Pronoun: Straight / Person(s) present during interview: patient and spouse This initial health and behavior assessment was conducted through real-time audio/video technology by Swapna Willard from [facility] to the patient at patient's home. Patient [...] an appointment scheduled with Urmila Mccoy, in [place], to reestablish mental health services. Patient engaged counseling approximately 3-4 years ago. Patient reported he has been using some of the coping skills he learned during his counseling sessions to help with his increased anxiety. He has also been taking lorazepam as needed. He said prior to his cancer diagnosis he really had the need to take lorazepam. Patient was referred to community mental health social worker to discuss emotional health, coping strategies, stress management and review resources available to cancer patients. Disclaimer: They were advised of the various topics that will be assessed during this evaluation. It was discussed with the patient that staff are mandated reporters including responsibilities related to mental health professionals' duty related to the [place] Red Flag law and they reported understanding. [...] residence. Support System: spouse, children, family members, latter day/[place]ul[place] community, and friends/neighbors Primary Caregiver: self Caregiver Information: The patient does not have an identified caregiver. Spirituality/Jewish/Cultural Factors: Patient reports spirituality is a strong [...] Communication: Can write, Talks, Understands speaking, Understands Swiss, Reads, Appropriate to age/development Shopping: Independent Medication [...] with Urmila Mccoy MA license psychologist in [place]. Patient reports he has appointment scheduled in [...] with Urmila Munguia MA licensed psychologist in [place] 01-12-25 [facility] Pharmacotherapies details: Patient reports his psychiatric medications are managed by his primary care provider. 01-12-25 [facility] Suicide Risk and Safety Risk Assessment: C-SSRS Short Version: Sharkey Suicide Severity Rating Scale (C-SSRS) - Short [...] an appointment scheduled with Urmila Mccoy in [place], to reestablish mental health services. Patient engaged [...] be accepted into a clinical trial at [facility]. He identified the waiting between medical appointments [...] to learning more about the role of community mental health social worker in the cancer center and would like to be scheduled for follow up visits for additional support. INTERVENTIONS Provider engaged the patient in Cognitive Behavioral Therapy and Motivational Interviewing utilizing goal setting and validation and rapport building, empathetic communication, open ended questioning, affirmations, and summarizing to complete the assessment process. The patient was engaged as evidenced by interactive conversation with community mental health social worker. drug department worker discussed with the patient the role of community mental health social worker in the cancer center including behavioral health services available. Patient reported having to pay dgx-hl-tlnftv for his community mental health provider in the past and was open to additional discussion about possible behavior health services with oncology rep specialist. Socialworker allowed patient time to express feelings [...] distractions to focus on an outside activity. drug department worker encouraged patient to follow up with his primary care provider regarding medication management. drug department worker discussed with patient the [facility] support group, Cancer Care, and [employer]. Patient provided with the [employer] handout ???Distress in People with [...] motivated to engage in treatment. Resources provided: drug department worker mailed to patient resources for Cancer Care and [employer]. [place] educational information was sent on acupressure for fatigue and for anxiety A list of agencies within the area that patient/family geographically resides or requests has been provided to and reviewed with patient/family. Disclosure of [place]'s financial interest in [facility] ([facility]) was provided to and acknowledged by [...] by making amental note and report to community mental health social worker at upcoming appointments. Progress may be measured by patient's attending his [place] appointment with his community mental health worker. Progress may also be m easured by an increase in patient's social interactions. During each appointment, community mental health social worker will ask the patient to identify progress made with the interventions and coping strategies. drug department worker will review patient coping strategies patient has found successful. drug department worker will continue to review treatment goals and plan at future clinic visits. Patient's next appointment will be in approximately 1 month. Lunk-no-Engz Start Time: 9:27 AM, Rdsh-hu-Nyxr Stop Time: 10:24 AM Exiq-nh-Wsle Total Time: 57 minutes Swapna Willard 01/12/2025 [...] PM CDT Clinical Communication Virtual Review in [place], [place] [address] [place] [address] 02/09/2025 9:30 AM CDT Telemedicine Department of Oncology in [address] [phone] Jesica Wasserman M.B., B.Ch. [address] [place] [phone] Cecily Nash L.I.C.S.W. [address] [place] [phone] 02/10/2025 12:00 PM CDT Lab Department of Infusion Therapy in [place], [place] [address] [place] [phone] Skip Amaya M.D., Ph.D. [address] [place] [phone] 02/10/2025 2:30 PM CDT Office Visit Department of Oncology in [place], [place] [address] [place] [phone] Rosenda Garza MPAS, P.A.-C. [address] [place] [phone] 02/11/2025 8:00 AM CDT Infusion Department of Oncology in [place], [place] [address] [place] [phone] Skip Amaya M.D., Ph.D. [address] [place] [phone] 02/23/2025 2:15 PM CDT Clinical Communication Virtual Review in [place], [place] [address] [place] [address] 02/25/2025 8:30 AM CDT Lab Department of Oncology in [address] [address] Skip Amaya M.D., Ph.D. [address] [place] [phone] 02/25/2025 10:40 AM CDT Office Visit Department of Oncology in [address] [phone] Sandy Judge APRN, C.N.P., M.S. [address] [place] [phone] 02/25/2025 11:30 AM CDT Infusion Department of Oncology in [address] [phone] Skip Amaya M.D., Ph.D. [address] [place] [phone] 03/04/2025 6:00 AM CDT Lab Department of Infusion Therapy in [address] [phone] Skip Amaya M.D., Ph.D. [address] [place] [phone] 03/04/2025 8:10 AM CDT Office Visit Department of Oncology in [place], [place] [address] [place] [phone] Jie Shook P.A.-C. [address] [place] [phone] 03/04/2025 9:30 AM CDT Infusion Department of Oncology in [address] [address] Skip Amaya M.D., Ph.D. [address] [place] [phone] 03/10/2025 2:15 PM CDT Clinical Communication Virtual Review in [place], [place] [address] [place] [address] 03/11/2025 6:00 AM CDT Lab Department of Laboratory Medicine and Pathology, [facility] in [address] [phone] Skip Amaya M.D., Ph.D. [address] [place] [phone] 03/11/2025 7:20 AM CDT Office Visit Department of Oncology in [place], [place] [address] [place] [phone] Bipin Leal P.A.-C., M.S. [address] [place] [phone] 03/11/2025 8:00 AM CDT Infusion Department of Oncology in [place], [place] [address] [place] [phone] Skip Amaya M.D., Ph.D. [address] [place] [phone] 03/24/2025 7:30 AM CDT Appointment Department of Radiology, [facility], in [place], [place] [address] [place] [phone] Skip Amaya M.D., Ph.D. [address] [place] [phone] 03/24/2025 11:20 AM CDT Lab Department of Infusion Therapy in [address] [address] Skip Amaya M.D., Ph.D. [address] [place] [phone] 03/24/2025 1:30 PM CDT Office Visit Department of Oncology in [address] [address] Skip Amaya M.D., Ph.D. [address] [place] [phone] 03/25/2025 7:00 AM CDT Infusion Department of Oncology in [address] [address] Skip Amaya M.D., Ph.D. [address] [place] [phone] 03/29/2025 2:30 PM CDT Clinical Communication Virtual Review in [address] [phone] 04/01/2025 6:00 AM CDT Lab Department of Infusion Therapy in [address] [address] Skip Amaya M.D., Ph.D. [address] [place] [phone] 04/01/2025 8:20 AM CDT Office Visit Department of Oncology in [place], [place] [address] [place] [phone] Precious Hill M.D., Ph.D. [address] [place] [phone] 04/01/2025 9:00 AM CDT Infusion Department of Oncology in [place], [place] [address] [place] [phone] Skip Amaya M.D., Ph.D. [address] [place] [phone] 04/07/2025 11:00 AM CDT Lab Department of Infusion Therapy in [place], [place] [address] [place] [phone] Skip Amaya M.D., Ph.D. [address] [place] [phone] 04/07/2025 1:20 PM CDT Office Visit Department of Oncology in [address] [phone] Sandy Judge, KAHS, C.N.P., M.S. [address] [place] [phone] 04/08/2025 7:00 AM CDT Infusion Department of Oncology in [place], [place] [address] [place] [phone] Skip Amaya M.D., Ph.D. [address] [place] [phone] 04/21/2025 7:15 AM CDT Clinical Communication Virtual Review in [place], [place] [address] [place] [address] 04/22/2025 7:20 AM CDT Lab Department of Infusion Therapy in [place], [place] [address] [place] [phone] Skip Amaya M.D., Ph.D. [address] [place] [phone] 04/22/2025 9:20 AM CDT Office Visit Department of Oncology in [place], [place] [address] [place] [phone] Sandy Judge APRN, C.N.P., M.S. [address] [place] [phone] 04/22/2025 10:30 AM CDT Infusion Department of Oncology in [address] [phone] Skip Amaya M.D., Ph.D. [address] [place] [phone] 04/29/2025 11:15 AM CDT Lab Department of Oncology in [address] [phone] Skip Amaya M.D., Ph.D. [address] [place] [phone] 04/29/2025 1:20 PM CDT Office Visit Department of Oncology in [address] [phone] Sandy Judge APRN, C.N.P., M.S. [address] [place] [phone] 04/29/2025 2:00 PM CDT Infusion Department of Oncology in [address] [phone] Skip Amaya M.D., Ph.D. [address] [place] [address] Scheduled Referrals Name Type Priority Associated Diagnoses Order Schedule Psychiatry and Psychology office visit (clinic) [facility] Outpatient Referral Routine Expected: 02/13/2025, Expires: 04/15/2026 documented as of this encounter Goals Goal Patient Goal Type Associated Problems Recent Progress Patient-Stated? Author Autogenerat ed Goal Care Plan Autogenerated Problem No Hedy Lees RJustynNJustyn documented as of this encounter Visit Diagnoses Diagnosis Malignant Neoplasm Of Pancreas Tail (HCC) Depression Major One Episode Moderate (HCC) documented in this encounter Additional Health Concerns Active Problems Noted Date Diagnosed Date Autogenerated Problem 11/16/2024 Assessment Noted Time PHQ-9 Depression Total Score: 7 01/12/20 25 9:53 AM CDT documented as of this encounter Care Teams Mapping Editor Relationship Specialty Start Date End Date Elsewhere, Pcp PCP - General Internal Medicine 09/09/23 documented as of this encounter
--- OUTSIDE RECORDS SUMMARY | 2025-01-17 11:02 | XMS_ITS | Encounter Summary ---
Author Organization [facility] Address [address] [place] [address] Care Team Providers Care Export Freight Manager Name Role Phone Elsewhere, Pcp Primary [...] Access Device Placement Jesica Wasserman M.B., B.Ch. [address] [place] [address] Phone: tel: fax: [facility] Region Referral ID Status Reason Start Date Expiration Date Visits Re quested Visits Authorized [id number] Closed 01/05/2025 04/07/2026 1 1 Reason for [...] Access Device Placement Jesica Wasserman M.B., B.Ch. [address] [place] [phone] Phone: tel: fax: [facility] Region Referral ID Status Reason Start Date Expiration Date Visits Re quested Visits Authorized [id number] Closed 01/05/2025 04/07/2026 1 1 Encounter Details Date Type Department Care Team (Latest Contact Info) Description 01/17/2025 11:02 AM CDT - 01/17/2025 1:41 PM CDT Hospital Encounter Department of Radiology in [address] [phone] Jesica Wasserman M.B., B.Ch. [address] [place] [phone] Jony Avilez M.D. [address] [place] [phone] Depression Major One Episode Moderate (HCC); Hypertensive [...] pur e alcohol) 0-1 drink per week [facility] Utilities Answer Date Recorded In the past 12 months has th e [employer], gas, oil, or water [employer] threatened to shut off services in your [...] your living situation today? I have a [facility] place to live 12/23/2024 Education Answer Date Recorded What is the highest level of school you have completed or the highest degree you have received? Master's degree (e.g., MA, MS, Katelyn, MEd, COAGULATING OPERATOR, KELLEE) 01/05/2025 Sex and Gender Information Value Date Recorded Sex Assigned at Male 09/10/2023 7:48 AM SUPERVISOR WET ROOM Legal Sex Male 10:11 PM SUPERVISOR WET ROOM Gender Identity Male 09/10/2023 7:48 AM SUPERVISOR WET ROOM Sexual Orientation Straight 09/10/2023 7: 48 AM SUPERVISOR WET ROOM documented as of this encounter Last Filed [...] have any questions or concerns, please call [phone] (select option 3), for the Interventional Radiology [...] Please see Radiology Report for full details. INVENTORY AUDIT CLERK Orion Avilez M.D. SPECIMENS REMOVED None ESTIMATED BLOOD [...] PM CDT Clinical Communication Virtual Review in [place], [place] [address] [place] [phone] 02/09/2025 9:30 AM CDT Telemedicine Department of Oncology in [address] [phone] Jesica Wasserman M.B., B.Ch. [address] [place] [phone] Cecily Nash L.I.C.S.W. [address] [place] [phone] 02/10/2025 12:00 PM CDT Lab Department of Infusion Therapy in [place], [place] [address] [place] [phone] Skip Amaya M.D., Ph.D. [address] [place] [phone] 02/10/2025 2:30 PM CDT Office Visit Department of Oncology in [place], [place] [address] [place] [phone] Rosenda Garza, KRISHNAS, P.A.-C. [address] [place] [phone] 02/11/2025 8:00 AM CDT Infusion Department of Oncology in [place], [place] [address] [place] [phone] Skip Amaya M.D., Ph.D. [address] [place] [phone] 02/23/2025 2:15 PM CDT Clinical Communication Virtual Review in [place], [place] [address] [place] [phone] 02/25/2025 8:30 AM CDT Lab Department of Oncology in [place], [place] [address] [place] [phone] Skip Amaya M.D., Ph.D. [address] [place] [phone] 02/25/2025 10:40 AM CDT Office Visit Department of Oncology in [place], [place] [address] [place] [phone] Sandy Judge APRN, C.N.P., M.S. [address] [place] [phone] 02/25/2025 11:30 AM CDT Infusion Department of Oncology in [place], [place] [address] [place] [phone] Skip Amaya M.D., Ph.D. [address] [place] [phone] 03/04/2025 6:00 AM CDT Lab Department of Infusion Therapy in [place], [place] [address] [place] [phone] Skip Amaya M.D., Ph.D. [address] [place] [phone] 03/04/2025 8:10 AM CDT Office Visit Department of Oncology in [place], [place] [address] [place] [phone] Jie Shook P.A.-C. [address] [place] [phone] 03/04/2025 9:30 AM CDT Infusion Department of Oncology in [place], [place] [address] [place] [phone] Skip Amaya M.D., Ph.D. [address] [place] [phone] 03/10/2025 2:15 PM CDT Clinical Communication Virtual Review in [place], [place] [address] [place] [address] 03/11/2025 6:00 AM CDT Lab Department of Laboratory Medicine and Pathology, [facility] in [place], [place] [address] [place] [phone] Skip Amaya M.D., Ph.D. [address] [place] [phone] 03/11/2025 7:20 AM CDT Office Visit Department of Oncology in [address] [phone] Bipin Leal P.A.-C., M.S. [address] [place] [phone] 03/11/2025 8:00 AM CDT Infusion Department of Oncology in [address] [phone] Skip Amaya M.D., Ph.D. [address] [place] [phone] 03/24/2025 7:30 AM CDT Appointment Department of Radiology, [facility], in [address] [phone] Skip Amaya M.D., Ph.D. [address] [place] [phone] 03/24/2025 11:20 AM CDT Lab Department of Infusion Therapy in [address] [phone] Skip Amaya M.D., Ph.D. [address] [place] [phone] 03/24/2025 1:30 PM CDT Office Visit Department of Oncology in [place], [place] [address] [place] [phone] Skip Amaya M.D., Ph.D. [address] [place] [phone] 03/25/2025 7:00 AM CDT Infusion Department of Oncology in [place], [place] [address] [place] [phone] Skip Amaya M.D., Ph.D. [address] [place] [phone] 03/29/2025 2:30 PM CDT Clinical Communication Virtual Review in [place], [place] [address] [place] [address] 04/01/2025 6:00 AM CDT Lab Department of Infusion Therapy in [place], [place] [address] [place] [phone] Skip Amaya M.D., Ph.D. [address] [place] [phone] 04/01/2025 8:20 AM CDT Office Visit Department of Oncology in [address] [phone] Precious Hill M.D., Ph.D. [address] [place] [phone] 04/01/2025 9:00 AM CDT Infusion Department of Oncology in [address] [phone] Skip Amaya M.D., Ph.D. [address] [place] [phone] 04/07/2025 11:00 AM CDT Lab Department of Infusion Therapy in [address] [place] [phone] Skip Amaya M.D., Ph.D. [address] [place] [phone] 04/07/2025 1:20 PM CDT Office Visit Department of Oncology in [place], [place] [address] [place] [phone] Sandy Judge APRN, C.N.P., M.S. [address] [place] [phone] 04/08/2025 7:00 AM CDT Infusion Department of Oncology in [place], [place] [address] [place] [phone] Skip Amaya M.D., Ph.D. [address] [place] [phone] 04/21/2025 7:15 AM CDT Clinical Communication Virtual Review in [place], [place] [address] [place] [phone] 04/22/2025 7:20 AM CDT Lab Department of Infusion Therapy in [address] [phone] Skip Amaya M.D., Ph.D. [address] [place] [phone] 04/22/2025 9:20 AM CDT Office Visit Department of Oncology in [place], [place] [address] [place] [phone] Sandy Judge APRN, C.N.P., M.S. [address] [place] [phone] 04/22/2025 10:30 AM CDT Infusion Department of Oncology in [place], [place] [address] [place] [phone] Skip Amaya M.D., Ph.D. [address] [place] [phone] 04/29/2025 11:15 AM CDT Lab Department of Oncology in [place], [place] [address] [place] [phone] Skip Amaya M.D., Ph.D. [address] [place] [phone] 04/29/2025 1:20 PM CDT Office Visit Department of Oncology in [place], [place] [address] [place] [phone] Sandy Judge APRN, C.N.P., M.S. [address] [place] [phone] 04/29/2025 2:00 PM CDT Infusion Department of Oncology in [place], [place] [address] [place] [phone] Skip Amaya M.D., Ph.D. [address] [place] [phone] documented as of this encounter Goals Goal [...] medications. Patient education provided by a care rock climbing team member. Patient was ready to learn with no [...] Vein Venogram: No Venous access device: 8 Iraqi single lumen PowerPort with non-valved open-ended catheter [...] medications. Patient education provided by a care rock climbing team member. Patient was ready to learn withno apparent [...] Vein Venogram: No Venous access device: 8 Iraqi single lumen PowerPort with [id number]-vemot catheter tip. Of note, this is not [...] Subsequent doses 1218 (Given - Provid er: Юлия TrejoN.)1222 (Given - Provider: Sabrina Fine R.N.) fentaNYL [...] Jony Avilez M.D.)1220 (Given - Provider: Jony Avielz M.D.) midazolam (PF) injection 0.25 mg (Versed) [...] breaths/minute. 1221 (Given - Provid er: Sabrina Fine, R.N.) midazolam (PF) injection 1 mg (Versed) [...] documented as of this encounter Care Teams Export Freight Manager Relationship Specialty Start Date End Date Elsewhere, Pcp PCP - General Internal Medicine 09/09/23 documented as of this encounter
--- OUTSIDE RECORDS SUMMARY | 2025-01-19 10:00 | XMS_ITS | Encounter Summary ---
Author Organization [facility] Address [address] [place] [id number] Care Team Providers Care Network Security Consultant Name Role Phone Elsewhere, Pcp Primary Care [...] (HCC) Mass Pancreas Jesica Wasserman M.B., B.Ch. [address] [place] [address] Phone: tel: fax: [facility] Referral ID Status Reason Start Date Expiration Date Visits Re quested Visits Authorized [id number] Closed 01/05/2025 07/07/2026 1 1 Encounter Details Date Type Department Care Team (Latest Contact Info) Description 01/19/2025 10:00 AM CDT Comprehensive Visit Department of Oncology in [place], [place] [address] [place] [phone] Skip Amaya M.D., Ph.D. [address] [place] [phone] Malignant Neoplasm Of Pancreas Tail (HCC) (Primary [...] e alcohol) 0-1 drink per week [facility] Utilities Answer Date Recorded In the past 12 months has e electric, gas, oil, or water [employer] threatened to shut off services in your [...] your living situation today? I have a [facility] place to live 12/23/2024 Education Answer Date Recorded What is the highest level of school you have completed or the highest degree you have received? Master's degree (e.g., MA, MS, Katelyn, MEd, ASSAYER HELPER, KELLEE) 01/05/2025 Sex and Gender Information Value Date Recorded Sex Assigned at Male 09/10/2023 7:48 AM CHART WRITER Legal Sex Male 10:11 PM CHART WRITER Gender Identity Male 09/10/2023 7:48 AM CHART WRITER Sexual Orientation Straight 09/10/2023 7: 48 AM CHART WRITER documented as of this encounter Last Filed [...] SUBJECTIVE Referral Jesica Wasserman M.B., B.Ch. Primary [facility] Staff: Dr. Jesica Wasserman / Dr. Skip Amaya ([id number]) / Sandy Judge APRN, MARKETING PLANNER, MS Chief Complaint / Reason for Visit [...] in 2024; Multi-Cancer + RNA panel through [facility]. No pathogenic variants identified. 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 Interval History Mr. Noel Mata is a 69 year-old gentleman accompanied by his and two daughters from [place], [place] presenting in consultation for pancreatic cancer. Mr. Mata lives at home with his . They have four daughters and a grandchildren. Mr. Mata has seven sisters. 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 He loves golfing and has [...] accompanied by his and two daughters from [place], [place] presenting in consultation for pancreatic cancer. [...] that the patient should be in the clark driver's seat with regards ongoing care and [...] PM CDT Clinical Communication Virtual Review in [place], [place] [address] [place] [phone] 02/09/2025 9:30 AM CDT Telemedicine Department of Oncology in [address] [phone] Jesica Wasserman M.B., B.Ch. [address] [place] [phone] Cecily Nash L.I.C.S.W. [address] [place] [address] 02/10/2025 12:00 PM CDT Lab Department of Infusion Therapy in [place], [place] [address] [place] [phone] Skip Amaya M.D., Ph.D. [address] [place] [phone] 02/10/2025 2:30 PM CDT Office Visit Department of Oncology in [address] [phone] Rosenda Garza MPAS, P.A.-C. [address] [place] [phone] 02/11/2025 8:00 AM CDT Infusion Department of Oncology in [address] [phone] Skip Amaya M.D., Ph.D. [address] [place] [phone] 02/23/2025 2:15 PM CDT Clinical Communication Virtual Review in [place], [place] 200 [place] [address] 02/25/2025 8:30 AM CDT Lab Department of Oncology in [place], [place] [address] [place] [phone] Skip Amaya M.D., Ph.D. [address] [place] [phone] 02/25/2025 10:40 AM CDT Office Visit Department of Oncology in [place], [place] [address] [place] [phone] Sandy Judge APRN, C.N.P., M.S. [address] [place] [phone] 02/25/2025 11:30 AM CDT Infusion Department of Oncology in [place], [place] [address] [place] [phone] kSip Amaya M.D., Ph.D. [address] [place] [phone] 03/04/2025 6:00 AM CDT Lab Department of Infusion Therapy in [place], [place] [address] [place] [phone] Skip Amaya M.D., Ph.D. [address] [place] [phone] 03/04/2025 8:10 AM CDT Office Visit Department of Oncology in [place], [place] [address] [place] [phone] Jie Shook P.A.-C. [address] [place] [phone] 03/04/2025 9:30 AM CDT Infusion Department of Oncology in [place], [place] [address] [place] [phone] Skip Amaya M.D., Ph.D. [address] [place] [phone] 03/10/2025 2:15 PM CDT Clinical Communication Virtual Review in [place], [place] [address] [place] [address] 03/11/2025 6:00 AM CDT Lab Department of Laboratory Medicine and Pathology, [facility], in [place], [place] [address] [place] [phone] Skip Amaya M.D., Ph.D. [address] [place] [phone] 03/11/2025 7:20 AM CDT Office Visit Department of Oncology in [place], [place] [address] [place] [phone] Bipin Leal P.A.-C., M.S. [address] [place] [phone] 03/11/2025 8:00 AM CDT Infusion Department of Oncology in [place], [place] [address] [place] [phone] Skip Amaya M.D., Ph.D. [address] [place] [phone] 03/24/2025 7:30 AM CDT Appointment Department of Radiology, [facility], in [place], [place] [address] [place] [phone] Skip Amaya M.D., Ph.D. [address] [place] [phone] 03/24/2025 11:20 AM CDT Lab Department of Infusion Therapy in [place], [place] [address] [place] [phone] Skip Amaya M.D., Ph.D. [address] [place] [phone] 03/24/2025 1:30 PM CDT Office Visit Department of Oncology in [place], [place] [address] [place] [phone] Skip Amaya M.D., Ph.D. [address] [place] [phone] 03/25/2025 7:00 AM CDT Infusion Department of Oncology in [place], [place] [address] [place] [phone] Skip Amaya M.D., Ph.D. [address] [place] [phone] 03/29/2025 2:30 PM CDT Clinical Communication Virtual Review in [place], [place] [address] [place] [address] 04/01/2025 6:00 AM CDT Lab Department of Infusion Therapy in [address] [phone] Skip Amaya M.D., Ph.D. [address] [place] [phone] 04/01/2025 8:20 AM CDT Office Visit Department of Oncology in [address] [phone] Precious Hill M.D., Ph.D. [address] [place] [phone] 04/01/2025 9:00 AM CDT Infusion Department of Oncology in [address] [phone] Skip Amaya M.D., Ph.D. [address] [place] [phone] 04/07/2025 11:00 AM CDT Lab Department of Infusion Therapy in [address] [phone] Skip Amaya M.D., Ph.D. [address] [place] [phone] 04/07/2025 1:20 PM CDT Office Visit Department of Oncology in [address] [place] [address] Sandy Judge APRN, C.N.P., M.S. [address] [place] [phone] 04/08/2025 7:00 AM CDT Infusion Department of Oncology in [place], [place] [address] [place] [phone] Skip Amaya M.D., Ph.D. [address] [place] [phone] 04/21/2025 7:15 AM CDT Clinical Communication Virtual Review in [place], [place] [address] [place] [address] 04/22/2025 7:20 AM CDT Lab Department of Infusion Therapy in [place], [place] [address] [place] [phone] Skip Amaya M.D., Ph.D. [address] [place] [phone] 04/22/2025 9:20 AM CDT Office Visit Department of Oncology in [address] [phone] Sandy Judge APRN, C.N.P., M.S. [address] [place] [phone] 04/22/2025 10:30 AM CDT Infusion Department of Oncology in [address] [address] Skip Amaya M.D., Ph.D. [address] [place] [phone] 04/29/2025 11:15 AM CDT Lab Department of Oncology in [address] [phone] Skip Amaya M.D., Ph.D. [address] [place] [phone] 04/29/2025 1:20 PM CDT Office Visit Department of Oncology in [place], [place] [address] [place] [phone] Sandy Judge, KASH, C.N.P., M.S. [address] [place] [phone] 04/29/2025 2:00 PM CDT Infusion Department of Oncology in [place], [place] [address] [place] [phone] Skip Amaya M.D., Ph.D. [address] [place] [phone] Pending Results Name Type Priority Associated Diagnoses Date /Time EXT Tempus xT DNA And RNA Lab Routine Malignant Neoplasm Of Pancreas Tail (HCC) 01/26/2025 3:52 PM CDT documented as of this encounter Goals Goal Patient Goal Type Associated Problems Recent Progress Patient-Stated? Author Autogenerat ed Goal Care Plan Autogenerated Problem No Hedy Lees, R.N. documented as of this encounter Results * Aura Tempus xT, Tissue - Sent Out Lab (12/30/2024 12:57 PM CDT) Aura Tempus xT, Tis Collected, Sent to Reference Lab DEFAULT 01/25/2025 8:32 AM CDT AURA Tissue (Other, Specify in Comments) 12/30/2024 12:57 PM CDT 01/25/2025 8:32 AM CDT Skip Amaya M.D., Ph.D. LAB GENETIC TESTING Dana l Result [facility] [address] [place], [place] [address] [address] [place] [address] documented in this encounter Visit Diagnoses Diagnosis [...] documented as of this encounter Care Teams Network Security Consultant Relationship Specialty Start Date End Date Elsewhere, Pcp PCP - General Internal Medicine 09/09/23 documented as of this encounter
--- OUTSIDE RECORDS SUMMARY | 2025-01-21 08:00 | XMS_ITS | Encounter Summary ---
Author Organization [facility] Address [address] [place] [id number] Care Team Providers Care Networking Administrator Name Role Phone Elsewhere, Pcp Primary Care Provider Unavailabl e Encounter Details Date Type Department Care Team (Late st Contact Info) Description 01/21/2025 8:00 AM CDT Lab Department of Oncology in [place], [place] [address] [place] [phone] Skip mAaya M.D., Ph.D. 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 Alcohol Use Standard Drinks/Week Comments Not Currently 1 (1 standard drink = 0.6 oz pur e alcohol) 0-1 drink per week [facility] Utilities Answer Date Recorded In the past 12 months has [employer] electric, gas, oil, or water company threatened [...] [facility] 12/23/2024 Education Answer Date Recorded What is the highest level of school you have completed or the highest degree you have received? Master's degree (e.g., MA, MS, Katelyn, MEd, [employer]INGER [employer]PERATOR, KELLEE) 01/05/2025 Sex and Gender Information Value Date Recorded Sex Assigned at Male 09/10/2023 7:48 AM RADIO PERFORMER Legal Sex Male 10:11 PM RADIO PERFORMER Gender Identity Male 09/10/2023 7:48 AM RADIO PERFORMER Sexual Orientation Straight 09/10/2023 7: 48 AM RADIO PERFORMER documented as of this encounter Plan of Treatment Upcoming Encounters Date Type Department Care Team (Latest Contact Info) Description 02/08/2025 2:15 PM CDT Clinical Communication Virtual Review in [place], [place] 200 [place] [phone] 02/09/2025 9:30 AM CDT Telemedicine Department of Oncology in [address] [phone] Jesica Wasserman M.B., B.Ch. [address] [place] [phone] Cecily Nash L.I.Jordy.S.W. [address] [place] [phone] 02/10/2025 12:00 PM CDT Lab Department of Infusion Therapy in [place], [place] [address] [place] [phone] Skip Amaya M.D., Ph.D. [address] [place] [phone] 02/10/2025 2:30 PM CDT Office Visit Department of Oncology in [place], [place] [address] [place] [phone] Rosenda Garza MPAS, P.A.-C. [address] [place] [phone] 02/11/2025 8:00 AM CDT Infusion Department of Oncology in [place], [place] [address] [place] [phone] Skip Amaya M.D., Ph.D. [address] [place] [phone] 02/23/2025 2:15 PM CDT Clinical Communication Virtual Review in [place], [place] 200 [place] [phone] 02/25/2025 8:30 AM CDT Lab Department of Oncology in [place], [place] [address] [place] [phone] Skip Amaya M.D., Ph.D. [address] [place] [phone] 02/25/2025 10:40 AM CDT Office Visit Department of Oncology in [place], [place] [address] [place] [phone] Sandy Judge APRN, C.N.P., M.S. [address] [place] [phone] 02/25/2025 11:30 AM CDT Infusion Department of Oncology in [place], [place] [address] [place] [phone] Skip Amaya M.D., Ph.D. [address] [place] [phone] 03/04/2025 6:00 AM CDT Lab Department of Infusion Therapy in [place], [place] [address] [place] [phone] Skip Amaya M.D., Ph.D. [address] [place] [phone] 03/04/2025 8:10 AM CDT Office Visit Department of Oncology in [place], [place] [address] [place] [phone] Jie Shook P.A.-C. [address] [place] [phone] 03/04/2025 9:30 AM CDT Infusion Department of Oncology in [place], [place] [address] [place] [phone] Skip Amaya M.D., Ph.D. [address] [place] [phone] 03/10/2025 2:15 PM CDT Clinical Communication Virtual Review in [place], [place] 200 [place] [phone] 03/11/2025 6:00 AM CDT Lab Department of Laboratory Medicine and Pathology, [facility], in [place], [place] [address] [place] [phone] kSip Amaya M.D., Ph.D. [address] [place] [phone] 03/11/2025 7:20 AM CDT Office Visit Department of Oncology in [place], [place] [address] [place] [phone] Bipin Leal P.A.-C., M.S. [address] [place] [phone] 03/11/2025 8:00 AM CDT Infusion Department of Oncology in [place], [place] [address] [place] [phone] Skip Amaya M.D., Ph.D. [address] [place] [phone] 03/24/2025 7:30 AM CDT Appointment Department of Radiology, [facility], in [place], [place] [address] [place] [phone] Skip Amaya M.D., Ph.D. [address] [place] [phone] 03/24/2025 11:20 AM CDT Lab Department of Infusion Therapy in [place], [place] [address] [place] [phone] Skip Amaya M.D., Ph.D. [address] [place] [phone] 03/24/2025 1:30 PM CDT Office Visit Department of Oncology in [place], [place] [address] [place] [phone] Skip Amaya M.D., Ph.D. [address] [place] [phone] 03/25/2025 7:00 AM CDT Infusion Department of Oncology in [place], [place] [address] [place] [phone] Skip Amaya M.D., Ph.D. [address] [place] [phone] 03/29/2025 2:30 PM CDT Clinical Communication Virtual Review in [place], [place] 200 [place] [address] 04/01/2025 6:00 AM CDT Lab Department of Infusion Therapy in [place], [place] [address] [place] [phone] Skip Amaya M.D., Ph.D. [address] [place] [phone] 04/01/2025 8:20 AM CDT Office Visit Department of Oncology in [address] [phone] Precious Hill M.D., Ph.D. [address] [place] [phone] 04/01/2025 9:00 AM CDT Infusion Department of Oncology in [address] [phone] Skip Amaya M.D., Ph.D. [address] [place] [phone] 04/07/2025 11:00 AM CDT Lab Department of Infusion Therapy in [address] [phone] Skip Amaya M.D., Ph.D. [address] [place] [phone] 04/07/2025 1:20 PM CDT Office Visit Department of Oncology in [address] [phone] Sandy Judge APRN, C.N.P., M.S. [address] [place] [phone] 04/08/2025 7:00 AM CDT Infusion Department of Oncology in [address] [phone] Skip Amaya M.D., Ph.D. [address] [place] [phone] 04/21/2025 7:15 AM CDT Clinical Communication Virtual Review in [place], [place] 200 [place] [phone] 04/22/2025 7:20 AM CDT Lab Department of Infusion Therapy in [place], [place] [address] [place] [phone] Skip Amaya M.D., Ph.D. [address] [place] [phone] 04/22/2025 9:20 AM CDT Office Visit Department of Oncology in [place], [place] [address] [place] [phone] Sandy Judge APRN, C.N.P., M.S. [address] [place] [phone] 04/22/2025 10:30 AM CDT Infusion Department of Oncology in [place], [place] [address] [place] [phone] Skip Amaya M.D., Ph.D. [address] [place] [phone] 04/29/2025 11:15 AM CDT Lab Department of Oncology in [place], [place] [address] [place] [phone] Skip Amaya M.D., Ph.D. [address] [place] [phone] 04/29/2025 1:20 PM CDT Office Visit Department of Oncology in [place], [place] [address] [place] [phone] Sandy Judge APRN, C.N.P., M.S. [address] [place] [phone] 04/29/2025 2:00 PM CDT Infusion Department of Oncology in [place], [place] [address] [place] [address] Skip Amaya M.D., Ph.D. [address] [place] [phone] documented as of this encounter Goals Goal Patient Goal Type Associated Problems Recent Progress Patient-Stated? Author Autogenerat ed Goal Care Plan Autogenerated Problem No Hedy Lees RDean documented as of this encounter Procedures [...] ADD-ON Final R esult Performing Organization Address [facility]/ZIP Co de Phone Number [facility] [address] [facility] 200 [place] [address] * Prothrombin Time (PT) (01/21/2025 7:52 AM CDT) Prothrombin Time, P 11.5 9.4 - 12.5 sec 01/21/2025 8:43 AM CDT DTL INR 1.0 0.9 - 1.1 01/21/2025 8:43 AM CDT DTL Comment: ----ADDITIONAL INFORMATION---- Standard intensity warfarin therapeutic range: 2.0 to 3.0 High intensity warfarin therapeutic range: 2.5 to 3.5 Blood (Blood, Venous) 01/21/2025 7:52 AM CDT 01/21/2025 8:21 AM CDT us Skip Amaya M.D., Ph.D. LAB BLOOD ADD-ON Final R esult [facility] [address] [place] [address], [facility] 200 [place] [address] * Phosphorus Inorganic (01/21/2025 7:51 AM CDT) Phosphorus (Inorganic), S 3.5 2.5 - 4.5 mg/dL 01/21/2025 8:57 AM CDT DTL Blood (Blood, Venous) 01/21/2025 7:51 AM CDT 01/21/2025 8:21 AM CDT us Skip Amaya M.D., Ph.D. LAB BLOOD ADD-ON Final R esult Performing Organization Address City/[facility]/ZIP Co de Phone Number [facility] [address] [place] [address] * Magnesium (01/21/2025 7:51 AM CDT) [facility] Magnesium, S 2.1 1.7 - 2.3 mg/dL 01/21/2025 8:57 AM CDT DTL Blood (Blood, Venous) 01/21/2025 7:51 AM CDT 01/21/2025 8:21 AM CDT us Skip Amaya M.D., Ph.D. LAB BLOOD ADD-ON Final R esult Performing Organization Address [facility] Co de Phone Number [facility] [address] [place] [address] * LD (Lactate Dehydrogenase) (01/21/2025 7:51 AM CDT) [facility] LD 144 122 - 222 U/L 01/21/2025 9:14 AM CDT DTL Blood (Blood, Venous) 01/21/2025 7:51 AM CDT 01/21/2025 8:20 AM CDT us Skip Amaya M.D., Ph.D. LAB BLOOD NON ADD-ON Fin al Result Performing Organization Address City/[facility]/ZIP Co de Phone Number [facility] [address] [place] [address] * (ABNORMAL) Comprehensive Metabolic Panel (01/21/2025 7:51 AM CDT) Potassium, S 4.2 3.6 - 5.2 mmol/L [...] Ph.D. LAB BLOOD ADD-ON Final R esult [facility] [address] [place] [address], [facility] DTL [facility] [address] [place] [address] * (ABNORMAL) CBC with Differential, Blood (01/21/2025 [...] 7:51 AM CDT 01/21/2025 8:21 AM CDT Skip Amaya M.D., Ph.D. LAB BLOOD ADD-ON Final R esult Performing Organization Address City/[facility] Co de Phone Number [facility] [address] [place] [address], [facility] DTL [facility] [address] [place] [address] [facility] [address] [place] [address] * (ABNORMAL) Carbohydrate Antigen 19-9 (CA 19-9) (01/21/2025 7:51 AM CDT) Carbohydrate Ag 19-9, S 06854(H) <35 U/mL 01/21/2025 1:01 PM CDT [facility] Comment: ----ADDITIONAL INFORMATION---- The testing method is an immunoenzymatic assay manufactured by [employer] and performed on the [employer] DxI 800. Values obtained with different assay methods or kits may be different and cannot be used interchangeably. Test results cannot be interpreted as absolute evidence for the presence or absence of malignant disease. Blood (Blood, Venous) 01/21/2025 7:51 AM CDT 01/21/2025 11:31 AM CDT Skip Amaya M.D., Ph.D. LAB BLOOD ADD-ON Final R esult Performing Organization Address City/[facility]/ZIP Co de Phone Number [facility] [address] [place] [address] [facility] [address] [place] [address] documented in this encounter Visit Diagnoses Diagnosis [...] documented as of this encounter Care Teams Networking Administrator Relationship Specialty Start Date End Date Elsewhere, Pcp PCP - General Internal Medicine 09/09/23 documented as of this encounter
--- OUTSIDE RECORDS SUMMARY | 2025-01-21 08:15 | XMS_ITS | Encounter Summary ---
Author Organization [facility] Address [address] [place] [id number] Care Team Providers Care Toe Lining Closer Name Role Phone Elsewhere, Pcp Primary Care Provider Unavailabl e Reason for Referral * MRI/CAT/PET Scan (Routine) - Closed Specialty Diagnoses / Procedures Referred By Contac t Referred To Contact Radiology Diagnoses Malignant Neoplasm Of Pancreas Tail (HCC) Procedures CT Abdomen Pelvis with IV Contrast Skip Amaya M.D., Ph.D. [address] [place] [phone] Phone: tel: fax: [facility] Referral ID Status Reason Start Date Expiration Date Visits Re quested Visits Authorized [id number] Closed 01/19/2025 04/21/2026 1 1 * MRI/CAT/PET Scan (Routine) - Closed Specialty Diagnoses / Procedures Referred By Contac t Referred To Contact Radiology Diagnoses Malignant Neoplasm Of Pancreas Tail (HCC) Procedures CT Chest with IV Contrast Skip Amaya M.D., Ph.D. [address] [place] [phone] Phone: tel: fax: [facility] Referral ID Status Reason Start Date Expiration Date Visits Re quested Visits Authorized [id number] Closed 01/19/2025 04/21/2026 1 1 * MRI/CAT/PET Scan (Routine) - Closed Specialty Diagnoses / Procedures Referred By Meeta carlisle Referred To Contact Radiology Diagnoses Malignant Neoplasm Of Pancreas Tail (HCC) Procedures CT Head without and with IV Contrast Skip Amaya M.D., Ph.D. [address] [place] [phone] Phone: tel: fax: [facility] Referral ID Status Reason Start Date Expiration Date Visits Re quested Visits Authorized [id number] Closed 01/19/2025 04/21/2026 1 1 Reason for Visit * MRI/CAT/PET Scan (Routine) - Closed Specialty Diagnoses / Procedures Referred By Meeta carlisle Referred To Contact Radiology Diagnoses Malignant Neoplasm Of Pancreas Tail (HCC) Procedures CT Abdomen Pelvis with IV Contrast Skip Amaya M.D., Ph.D. [address] [place] [phone] Phone: tel: fax: [facility] Referral ID Status Reason Start Date Expiration Date Visits Re quested Visits Authorized [id number] Closed 01/19/2025 04/21/2026 1 1 Encounter Details Date Type Department Care Team (Latest Contact Info) Description 01/21/2025 8:15 AM CDT - 01/21/2025 11:59 PM CDT Hospital Encounter Department of Radiology, [facility], in [place], [place] [address] [place] [address] Skip Amaya M.D., Ph.D. [address] [place] [phone] Malignant Neoplasm Of Pancreas Tail (HCC) Discharge Disposition: Home or Self Care Social History Tobacco Use Types Packs/Day Years Used Date Smoking Tobacco: Never Passive Smoke Exposure: Past Smokeless Tobacco: Never Passive Exposure Comments:Ch ildhood exposure. Alcohol Use Standard Drinks/Week Comments Not Currently 1 (1 standard drink = 0.6 oz pur e alcohol) 0-1 drink per week [facility] Utilities Answer Date Recorded In the past 12 months has e [employer], gas, oil, or water company threatened to [...] your living situation today? I have a [facility] place to live 12/23/2024 Education Answer Date Recorded What is the highest level of school you have completed or the highest degree you have received? 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 02/19/2024 documented as of this encounter Plan of Treatment Upcoming Encounters Date Type Department Care Team (Latest Contact Info) Description 02/08/2025 2:15 PM CDT Clinical Communication Virtual Review in [address] [phone] 02/09/2025 9:30 AM CDT Telemedicine Department of Oncology in [address] [phone] Jesica Wasserman M.B., B.Ch. [address] [place] [phone] Cecily Nash L.I.CJustynSJustynWJustyn [address] [place] [phone] 02/10/2025 12:00 PM CDT Lab Department of Infusion Therapy in [place], [place] [address] [place] [phone] Skip Amaya M.D., Ph.D. [address] [place] [phone] 02/10/2025 2:30 PM CDT Office Visit Department of Oncology in [address] [phone] Rosenda Garza MPAS, P.A.-C. [address] [place] [phone] 02/11/2025 8:00 AM CDT Infusion Department of Oncology in [address] [phone] Skip Amaya M.D., Ph.D. [address] [place] [phone] 02/23/2025 2:15 PM CDT Clinical Communication Virtual Review in [address] [phone] 02/25/2025 8:30 AM CDT Lab Department of Oncology in [address] [phone] Skip Amaya M.D., Ph.D. [address] [place] [phone] 02/25/2025 10:40 AM CDT Office Visit Department of Oncology in [address] [phone] Sandy Judge, KASH, C.N.P., M.S. [address] [place] [phone] 02/25/2025 11:30 AM CDT Infusion Department of Oncology in [place], [place] [address] [place] [phone] Skip Amaya M.D., Ph.D. [address] [place] [phone] 03/04/2025 6:00 AM CDT Lab Department of Infusion Therapy in [place], [place] [address] [place] [phone] Skpi Amaya M.D., Ph.D. [address] [place] [phone] 03/04/2025 8:10 AM CDT Office Visit Department of Oncology in [address] [phone] Jie Shook P.A.-C. [address] [place] [phone] 03/04/2025 9:30 AM CDT Infusion Department of Oncology in [address] [address] Skip Amaya M.D., Ph.D. [address] [place] [phone] 03/10/2025 2:15 PM CDT Clinical Communication Virtual Review in [place], [place] [address] [place] [address] 03/11/2025 6:00 AM CDT Lab Department of Laboratory Medicine and Pathology, [facility], in [address] [phone] Skip Amaya M.D., Ph.D. [address] [place] [phone] 03/11/2025 7:20 AM CDT Office Visit Department of Oncology in [place], [place] [address] [place] [phone] Bipin Leal P.A.-C., M.S. [address] [place] [phone] 03/11/2025 8:00 AM CDT Infusion Department of Oncology in [place], [place] [address] [place] [phone] Skip Amaya M.D., Ph.D. [address] [place] [phone] 03/24/2025 7:30 AM CDT Appointment Department of Radiology, [facility] in [place], [place] [address] [place] [phone] Skip Amaya M.D., Ph.D. [address] [place] [phone] 03/24/2025 11:20 AM CDT Lab Department of Infusion Therapy in [place], [place] [address] [place] [phone] Skip Amaya M.D., Ph.D. [address] [place] [phone] 03/24/2025 1:30 PM CDT Office Visit Department of Oncology in [address] [phone] Skip Amaya M.D., Ph.D. [address] [place] [phone] 03/25/2025 7:00 AM CDT Infusion Department of Oncology in [place], [place] [address] [place] [phone] Skip Amaya M.D., Ph.D. [address] [place] [phone] 03/29/2025 2:30 PM CDT Clinical Communication Virtual Review in [place], [place] [address] [place] [address] 04/01/2025 6:00 AM CDT Lab Department of Infusion Therapy in [place], [place] [address] [place] [phone] Skip Amaya M.D., Ph.D. [address] [place] [phone] 04/01/2025 8:20 AM CDT Office Visit Department of Oncology in [address] [phone] Precious Hill M.D., Ph.D. [address] [place] [phone] 04/01/2025 9:00 AM CDT Infusion Department of Oncology in [address] [address] Skip Amaya M.D., Ph.D. [address] [place] [phone] 04/07/2025 11:00 AM CDT Lab Department of Infusion Therapy in [address] [address] Skip Amaya M.D., Ph.D. [address] [place] [phone] 04/07/2025 1:20 PM CDT Office Visit Department of Oncology in [address] [phone] Sandy Judge APRN, C.N.P., M.S. [address] [place] [phone] 04/08/2025 7:00 AM CDT Infusion Department of Oncology in [place], [place] [address] [place] [phone] Skip Amaya M.D., Ph.D. [address] [place] [phone] 04/21/2025 7:15 AM CDT Clinical Communication Virtual Review in [place], [place] [address] [place] [phone] 04/22/2025 7:20 AM CDT Lab Department of Infusion Therapy in [place], [place] [address] [place] [phone] Skip Amaya M.D., Ph.D. [address] [place] [phone] 04/22/2025 9:20 AM CDT Office Visit Department of Oncology in [place], [place] [address] [place] [phone] Sandy Judge, KASH, C.N.P., M.S. [address] [place] [phone] 04/22/2025 10:30 AM CDT Infusion Department of Oncology in [address] [phone] Skip Amaya M.D., Ph.D. [address] [place] [phone] 04/29/2025 11:15 AM CDT Lab Department of Oncology in [address] [phone] Skip Amaya M.D., Ph.D. [address] [place] [phone] 04/29/2025 1:20 PM CDT Office Visit Department of Oncology in [place], [place] [address] [place] [address] Sandy Judge APRN, C.N.P., M.S. [address] [place] [phone] 04/29/2025 2:00 PM CDT Infusion Department of Oncology in [place], [place] [address] [place] [phone] Skip Amaya M.D., Ph.D. [address] [place] [phone] documented as of this encounter Goals Goal Patient Goal Type Associated Problems Recent Progress Patient-Stated? Author Autogenerat ed Goal Care Plan Autogenerated Problem No Hedy Lees, RRed. documented as of this encounter Procedures Procedure Name Priority Date/Time Associated Diagnosis Comments CT ABDOMEN PELVIS WITH IV CONTRAST RAD - Routine (most inpatients and all outpatients) 01/21/2025 9:57 AM CDT Malignant Neoplasm Of Pancreas Tail (HCC) CT CHEST WITH IV CONTRAST RAD - Routine (most inpatients and all outpatients) 01/21/2025 9:57 AM CDT Malignant Neoplasm Of Pancreas Tail (HCC) CT HEAD WITHOUT AND WITH IV CONTRAST RAD - Routine (most inpatients and all outpatients) 01/21/2025 9:57 AM CDT Malignant Neoplasm Of Pancreas Tail (HCC) documented in this encounter Results * CT Abdomen Pelvis with IV Contrast (01/21/2025 9:57 AM CDT) Anatomical Region Laterality Modality Abdomen, Pelvis, Abdominal R ST LOS, Abdominal ARZ LOS, Abdominal FLA LOS N/A Computed Tomograp hy, Computed Tomography 01/21/2025 9:28 AM CDT Impressions 01/21/2025 10:10 AM CDT 1. Since 12/28/2024, no substantial change in the size or extent of ill-defined infiltrative mass in the pancreatic tail, consistent with pancreas cancer. The cystic lesion associated with the pancreatic mass has not substantially changed and is possibly necrotic component of the malignancy. Decreased size of adjacent small loculated collection involving the gastric wall. 2. Marginal increase in size of right hepatic lobe metastasis and indeterminate lesion in segment 4. 3. No substantial change in upper abdominal lymphadenopathy. Narrative 01/21/2025 10:10 AM CDT EXAM: CT ABDOMEN PELVIS WITH IV CONTRAST COMPARISON: CT of abdomen pelvis 12/28/2024. FINDINGS: No significant change in the ill-defined infiltrative mass in the pancreatic tail which is difficult to measure accurately (series 6/image 98). Adjacent thick walled septated collection the distal pancreatic tail abutting the splenic hilum has not substantially changed in size, now measuring approximately 42 x 34 mm (series 5/image 83), previously 44 x 32 mm. This is concerning for necrotic component of the tumor versus less likely pseudocyst given its thick irregular wall. It abuts the splenic flexure of the colon and there is adjacent peritoneal fat stranding as well as mild thickening of the anterior renal fascia. Invasion of colonic wall cannot be excluded. An adjacent small loculated collection (presumed pseudocyst) has further decreased now with a residual 10 mm pocket of fluid, previously 19 mm. Diffuse hepatic steatosis. Mildly increased size of segment 6/5 hepatic metastasis measuring approximately 45 x 37 mm (series 6/image 123), previously 42 x 36 mm. Mild increase in size of indeterminate lesion segment 4 adjacent to the falciform ligament that demonstrates mild hyperenhancement on pancreatic phase and apical enhancement on portal venous phase, measuring approximately 25 mm (series 6/image 54), previously approximately 22 mm. It remains indeterminate for focal steatosis, transient perfusional change versus metastasis, given its typical enhancement pattern. No definite new lesion in the liver. Patent portal and hepatic veins. No abnormal biliary dilatation. Normal gallbladder, adrenal glands and kidneys. Transient perfusional changes in the spleen. Small duodenal diverticulum and a few scattered colonic diverticula. Mildly enlarged prostate gland. 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 Abnormal soft tissue thickening extends from the pancreatic mass to encase the celiac artery bifurcation, and common hepatic artery, concerning for tumor. No involvement of portal vein or SMV both of which are widely patent. No contact with SMA. Few perigastric collaterals (series 6/image 58). No substantial change in mildly enlarged upper abdominal peripancreatic and portacaval lymph nodes measuring up to 14 mm in short axis (series 6/image 103, 120). Subcentimeter gastrohepatic lymph nodes are stable. No ascites. Diffuse aortoiliac atherosclerosis without aneurysm. Degenerative changes of the spine and bilateral sacroiliac joints. Bone islands in right ilium. This examination was performed in conjunction with a CT of the chest, which will be reported separately. Procedure Note Keely Lopez M.D. - 01/21/2025 EXAM: CT ABDOMEN PELVIS WITH IV CONTRAST COMPARISON: CT of abdomen pelvis 12/28/2024. FINDINGS: No significant change in the ill-defined infiltrative mass inthe pancreatic tail which is difficult to measure accurately (series6/image 98). Adjacent thick walled septated collection the distalpancreatic tail abutting the splenic hilum has not substantially changed in size, now measuring approximately 42 x 34 mm(series 5/image 83), previously 44 x 32 mm. This is concerning fornecrotic component of the tumor versus less likely pseudocyst given itsthick irregular wall. It abuts the splenic flexure of the colon and there is adjacent peritoneal fatstranding as well as mild thickening of the anterior renal fascia.Invasion of colonic wall cannot be excluded. An adjacent small loculated collection (presumed pseudocyst) has furtherdecreased now with a residual 10 mm pocket of fluid, previously 19 mm. Diffuse hepatic steatosis. Mildly increased size of segment 6/5 hepaticmetastasis measuring approximately 45 x 37 mm (series 6/image 123),previously 42 x 36 mm. Mild increase in size of indeterminate lesionsegment 4 adjacent to the falciform ligament that demonstrates mild hyperenhancement on pancreatic phase and apicalenhancement on portal venous phase, measuring approximately 25 mm (series6/image 54), previously approximately 22 mm. It remains indeterminate forfocal steatosis, transient perfusional change versus metastasis, given its typical enhancementpattern. No definite new lesion in the liver. Patent portal and hepatic veins. No abnormal biliary dilatation. Normalgallbladder, adrenal glands and kidneys. Transient perfusional changes inthe spleen. Small duodenal diverticulum and a few scattered colonicdiverticula. Mildly enlarged prostate gland. 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 Abnormalsoft tissue thickening extends from the pancreatic mass to encase theceliac artery bifurcation, and common hepatic artery, concerning for tumor. No involvement of portal vein or SMVboth of which are widely patent. No contact with SMA. Few perigastriccollaterals (series 6/image 58). No substantial change in mildly enlarged upper abdominal peripancreaticand portacaval lymph nodes measuring up to 14 mm in short axis (series6/image 103, 120). Subcentimeter gastrohepatic lymph nodes are stable. Noascites. Diffuse aortoiliac atherosclerosis without aneurysm. Degenerative changes of the spine andbilateral sacroiliac joints. Bone islands in right ilium. This examination was performed in conjunction with a CT of the chest,which will be reported separately. IMPRESSION: 1. Since 12/28/2024, no substantial change in the size or extent ofill-defined infiltrative mass in the pancreatic tail, consistent withpancreas cancer. The cystic lesion associated with the pancreatic mass hasnot substantially changed and is possibly necrotic component of the malignancy. Decreased size of adjacentsmall loculated collection involving the gastric wall. 2. Marginal increase in size of right hepatic lobe metastasis andindeterminate lesion in segment 4. 3. No substantial change in upper abdominal lymphadenopathy. Skip Amaya M.D., Ph.D. IMG CT PROCEDURES Final Result * CT Chest with IV Contrast (01/21/2025 9:57 AM CDT) Anatomical Region Laterality Modality Chest, Thoracic RST LOS, Tho racic ARZ LOS, Thoracic ARZ LOS, Thoracic FLA LOS N/A Computed Tomography, Compute d Tomography 01/21/2025 9:22 AM CDT Impressions 01/21/2025 10:38 AM CDT 1. Several small pulmonary nodules, some have enlarged since he 02/18/2024 exam. Narrative 01/21/2025 10:38 AM CDT EXAM: CT CHEST WITH IV CONTRAST COMPARISON: Outside exams of 12/23/2024 and 02/18/2024. FINDINGS: Several bilateral pulmonary nodules. These are all stable since the recent comparison although some have developed or enlarged since he 02/18/2024 exam. For example a right upper lobe nodule (3/215) measuring 4 mm is new from the older compare. A tiny micronodule in the right lower lobe (3/403) has enlarged since the older compare. A 5 mm nodule in the left lower lobe (3/415) is stable. Few additional micronodules are also stable. Micronodule in the right lower lobe (3/330) has enlarged from the older compare. Calcified granuloma right lower lobe medially with calcified right hilar nodes. Dependent atelectasis in the posterior lungs. No thoracic adenopathy. No pleural effusion. Coronary calcification and stenting. Right IJ port catheter tip in the RA. Neural stimulator left chest wall. PO changes right shoulder. This examination was performed in conjunction with a CT of the abdomen, which will be reported separately. Procedure Note Jeanmarie Lewis M.D. - 01/21/2025 EXAM: CT CHEST WITH IV CONTRAST COMPARISON: Outside exams of 12/23/2024 and 02/18/2024. FINDINGS: Several bilateral pulmonary nodules. These are all stable since the recentcomparison although some have developed or enlarged since he 02/18/2024exam. For example a right upper lobe nodule (3/215) measuring 4 mm is newfrom the older compare. A tiny micronodule in the right lower lobe (3/403) has enlarged since the oldercompare. A 5 mm nodule in the left lower lobe (3/415) is stable. Fewadditional micronodules are also stable. Micronodule in the right lowerlobe (3/330) has enlarged from the older compare. Calcified granuloma right lower lobe medially with calcified right hilarnodes. Dependent atelectasis in the posterior lungs. No thoracic adenopathy. No pleural effusion. Coronary calcification and stenting. Right IJ port catheter tip in the RA.Neural stimulator left chest wall. PO changes right shoulder. This examination was performed in conjunction with a CT of the abdomen,which will be reported separately. IMPRESSION: 1. Several small pulmonary nodules, some have enlarged since he 02/18/2024exam. Skip Amaya M.D., Ph.D. IMG CT PROCEDURES Final Result * CT Head without and with IV Contrast (01/21/2025 9:57 AM CDT) Anatomical Region Laterality Modality Head, Neuroradiology RST LOS , Neuroradiology ARZ LOS, Neuroradiology FLA LOS N/A Computed Tomography, Compute d Tomography 01/21/2025 9:13 AM CDT Impressions 01/21/2025 10:38 AM CDT Stable bilateral DBS leads. Remainder negative. Narrative 01/21/2025 10:38 AM CDT EXAM: CT HEAD WITHOUT AND WITH IV CONTRAST COMPARISON: Outside head CT without contrast dated 02/08/[address] [facility] head CT dated 11/27/2023. FINDINGS: The noncontrast portion of the today's exam is unchanged from the comparisons. No acute change. No mass or extra-axial fluid collections. No acute hemorrhage. Bilateral deep brain stimulator leads with the tips in the ventral thalami. No abnormal intracranial enhancement to suggest metastasis. Development of a small focus of fluid in the right maxillary sinus. Remainder negative. Procedure Note Shai Johnson M.D. - 01/21/2025 EXAM: CT HEAD WITHOUT AND WITH IV CONTRAST COMPARISON: Outside head CT without contrast dated 02/08/2024 and [facility] head CT dated 11/27/2023. FINDINGS: The noncontrast portion of the today's exam is unchanged fromthe comparisons. No acute change. No mass or extra-axial fluidcollections. No acute hemorrhage. Bilateral deep brain stimulator leadswith the tips in the ventral thalami. No abnormal intracranial enhancement to suggest metastasis. Development of asmall focus of fluid in the right maxillary sinus. Remainder negative. IMPRESSION: Stable bilateral DBS leads. Remainder negative. Skip Amaya M.D., Ph.D. IMG CT PROCEDURES Final Result documented in this encounter Visit Diagnoses Diagnosis Malignant Neoplasm Of Pancreas Tail (HCC) documented in this encounter Administered Medications Inactive Administered Medications - up to 3 most recent administrations Medication Order MAR Action Action Date Dose Rate Site heparin flush 500-1,000 Units 500-1,000 Units, intra-catheter, During hospitalization, line care, Prior to discharge, Starting on Fri01/21/25 at 0850, For 1 dose, Implanted Vascular Access Device (IVAD) Venous Non-Valved: flush 5 mL (500 units) per port/lumen following saline flush prior to discharge. Given 01/21/2025 9:26 AM CDT 500 Units iohexoL 300 mg iodine/mL solution 1-200 mL (Omnipaque) 1-200 mL, intravenous, Once in imaging, contrast, Starting on Fri01/21/25 at 0834, For 1 dose, Imaging Protocol Orders, Dose per Radiant Medication Guidelines Given 01/21/2025 9:14 AM CDT 140 mL sodium chloride (PF) 0.9 % injection 1-100 mL 1-100 mL, intravenous, Once, On Fri01/21/25 at 0900, For 1 dose, Imaging Protocol Orders, Dose per Radiant Medication Guidelines Given 01/21/2025 9:15 AM CDT 50 mL sodium chloride 0.9 % injection 10-20 mL 10-20 mL, intravenous, As needed, line care, Implanted Vascular Access Device (IVAD) Venous Non-Valved, Starting on Fri01/21/25 at 0850, Prior to and following infusion and between multiple consecutive infusions, flush 10 mL to each port/lumen. Given 01/21/2025 8:50 AM CDT 10 mL sodium chloride 0.9 % injection 10-20 mL 10-20 mL, intravenous, During hospitalization, line care, Prior to discharge, Starting on Fri01/21/25 at 0850, For 1 dose, Implanted Vascular Access Device (IVAD) Venous Non-Valved: Flush 10 mL per port/lumen followed by heparin flush prior to discharge. Given 01/21/2025 9:26 AM CDT 10 mL documented in this encounter Additional Health Concerns Active Problems Noted Date Diagnosed Date Autogenerated Problem 11/16/2024 Assessment Noted Time PHQ-9 Depression Total Score: 7 01/12/20 9:53 AM CDT documented as of this encounter Care Teams Toe Lining Closer Relationship Specialty Start Date End Date Elsewhere, Pcp PCP - General Internal Medicine 09/09/23 documented as of this encounter
--- OUTSIDE RECORDS SUMMARY | 2025-01-25 13:20 | XMS_ITS | Encounter Summary ---
Author Organization [facility] Address [address] [place] [address] Care Team Providers Care Chemical Engineer Name Role Phone Elsewhere, Pcp Primary Care Provider Unavailabl e Reason for Visit * Outpatient (Routine) - Closed Specialty Diagnoses / Procedures Referred By Meeta carlisle Referred To Contact Oncology Diagnoses Malignant Neoplasm Of Pancreas Tail (HCC) Skip Amaya M.D., Ph.D. [address] [place] [phone] Phone: tel: fax: [facility] Referral ID Status Reason Start Date Expiration Date Visits Re quested Visits Authorized [id number] Closed 01/20/2025 07/22/2026 1 1 Encounter Details Date Type Department Care Team ([facility] st Contact Info) Description 01/25/2025 1:20 PM CDT Office Visit Department of Oncology in [place], [place] [address] [place] [phone] Precious Hill M.D., Ph.D. [address] [place] [phone] Malignant Neoplasm Of Pancreas Tail (HCC) (Primary [...] your living situation today? I have a [facility] place to live 12/23/2024 Education Answer Date Recorded What is the highest level of school you have completed or the highest degree you have received? Master's degree (e.g., MA, MS, Katelyn, MEd, DIRECTOR OF ADULT EPILEPSY, KELLEE) 01/05/2025 Sex and Gender Information Value Date Recorded Sex Assigned at Male 09/10/2023 7:48 AM SHEEP SHEARER Legal Sex Male 10:11 PM SHEEP SHEARER Gender Identity Male 09/10/2023 7:48 AM SHEEP SHEARER Sexual Orientation Straight 09/10/2023 7: 48 AM SHEEP SHEARER documented as of this encounter Last Filed [...] PM CDT SUBJECTIVE LOCAL ONCOLOGIST No care endless steamer tender to display PRIMARY AUXIER ONCOLOGIST Jesica Wasserman M.B., B.Ch. Skip Amaya [...] in 2024; Multi-Cancer + RNA panel through [facility]. No pathogenic variants identified. 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 01/28/2025 - Research Study Participant Research Study: Study of Quemliclustat and Chemotherapy Versus Placebo and Chemotherapy in PatientsWith Metastatic Pancreatic Ductal Adenocarcinoma ([id number]) Treatment Protocol: [facility] PRISM-1 ( Quemliclustat (AB680) or Placebo / PACLitaxel PROTEIN BOUND / Gemcitabine ) [facility] was used for documentation of the research [...] Noel Mata is a 69 year-old from [place], [place] with metastatic pancreatic cancer, here today [...] from 12/30/2024: Stage IV (pM1) Current Therapy: [facility] PRISM-1 ( Quemliclustat (AB680) or Placebo / [...] PM CDT Clinical Communication Virtual Review in [place], [place] 200 [place] [address] 02/09/2025 9:30 AM CDT Telemedicine Department of Oncology in [place], [place] 10[address] [place] [address] Jesica Wasserman M.B., B.Ch. 1025 [place] [address] Cecily Nash L.I.C.S.W. [facility]5 [place] [address] 02/10/2025 12:00 PM CDT Lab Department of Infusion Therapy in [place], [place] [address] [place] [phone] Skip Amaya M.D., Ph.D. [address] [place] [phone] 02/10/2025 2:30 PM CDT Office Visit Department of Oncology in [place], [place] [address] [place] [phone] Rosenda Garza MPAS, P.A.-C. [address] [place] [phone] 02/11/2025 8:00 AM CDT Infusion Department of Oncology in [place], [place] [address] [place] [phone] Skip Amaya M.D., Ph.D. [address] [place] [phone] 02/23/2025 2:15 PM CDT Clinical Communication Virtual Review in [place], [place] 200 [place] [address] 02/25/2025 8:30 AM CDT Lab Department of Oncology in [place], [place] [address] [place] [phone] Skip Amaya M.D., Ph.D. [address] [place] [phone] 02/25/2025 10:40 AM CDT Office Visit Department of Oncology in [place], [place] [address] [place] [phone] Sandy Judge, KASH, C.N.P., M.S. [address] [place] [phone] 02/25/2025 11:30 AM CDT Infusion Department of Oncology in [place], [place] [address] [place] [phone] Skip Amaya M.D., Ph.D. [address] [place] [phone] 03/04/2025 6:00 AM CDT Lab Department of Infusion Therapy in [place], [place] [address] [place] [phone] Skip Amaya M.D., Ph.D. [address] [place] [phone] 03/04/2025 8:10 AM CDT Office Visit Department of Oncology in [place], [place] [address] [place] [phone] Jie Shook P.A.-C. [address] [place] [phone] 03/04/2025 9:30 AM CDT Infusion Department of Oncology in [place], [place] [address] [place] [phone] Skip Amaya M.D., Ph.D. [address] [place] [phone] 03/10/2025 2:15 PM CDT Clinical Communication Virtual Review in [place], [place] 200 [place] [address] 03/11/2025 6:00 AM CDT Lab Department of Laboratory Medicine and Pathology, [facility] in [place], [place] [address] [place] [phone] Skip Amaya M.D., Ph.D. [address] [place] [phone] 03/11/2025 7:20 AM CDT Office Visit Department of Oncology in [place], [place] [address] [place] [phone] Bipin Leal P.A.-C., M.S. [address] [place] [phone] 03/11/2025 8:00 AM CDT Infusion Department of Oncology in [address] [phone] Skip Amaya M.D., Ph.D. [address] [place] [phone] 03/24/2025 7:30 AM CDT Appointment Department of Radiology, [facility], in [address] [phone] Skip Amaya M.D., Ph.D. [address] [place] [phone] 03/24/2025 11:20 AM CDT Lab Department of Infusion Therapy in [address] [phone] Skip Amaya M.D., Ph.D. [address] [place] [phone] 03/24/2025 1:30 PM CDT Office Visit Department of Oncology in [place], [place] [address] [place] [phone] Skip Amaya M.D., Ph.D. [address] [place] [phone] 03/25/2025 7:00 AM CDT Infusion Department of Oncology in [address] [phone] Skip Amaya M.D., Ph.D. [address] [place] [phone] 03/29/2025 2:30 PM CDT Clinical Communication Virtual Review in [address] [address] 04/01/2025 6:00 AM CDT Lab Department of Infusion Therapy in [address] [phone] Skip Amaya M.D., Ph.D. [address] [place] [phone] 04/01/2025 8:20 AM CDT Office Visit Department of Oncology in [address] [address] Precious Hill M.D., Ph.D. [address] [place] [phone] 04/01/2025 9:00 AM CDT Infusion Department of Oncology in [address] [address] Skip Amaya M.D., Ph.D. [address] [place] [phone] 04/07/2025 11:00 AM CDT Lab Department of Infusion Therapy in [address] [address] Skip Amaya M.D., Ph.D. [address] [place] [phone] 04/07/2025 1:20 PM CDT Office Visit Department of Oncology in [place], [place] [address] [place] [phone] Sandy Judge APRN, C.N.P., M.S. [address] [place] [phone] 04/08/2025 7:00 AM CDT Infusion Department of Oncology in [place], [place] [address] [place] [phone] Skip Amaya M.D., Ph.D. [address] [place] [phone] 04/21/2025 7:15 AM CDT Clinical Communication Virtual Review in [place], [place] 200 [place] [address] 04/22/2025 7:20 AM CDT Lab Department of Infusion Therapy in [place], [place] [address] [place] [phone] Skip Amaya M.D., Ph.D. [address] [place] [phone] 04/22/2025 9:20 AM CDT Office Visit Department of Oncology in [place], [place] [address] [place] [phone] Sandy Judge APRN, C.N.P., M.S. [address] [place] [phone] 04/22/2025 10:30 AM CDT Infusion Department of Oncology in [place], [place] [address] [place] [phone] Skip Amaya M.D., Ph.D. [address] [place] [phone] 04/29/2025 11:15 AM CDT Lab Department of Oncology in [place], [place] [address] [place] [phone] Skip Amaya M.D., Ph.D. [address] [place] [phone] 04/29/2025 1:20 PM CDT Office Visit Department of Oncology in [place], [place] [address] [place] [phone] Sandy Judge, KASH, C.N.P., M.S. [address] [place] [phone] 04/29/2025 2:00 PM CDT Infusion Department of Oncology in [place], [place] [address] [place] [phone] Skip Amaya M.D., Ph.D. [address] [place] [phone] documented as of this encounter Goals Goal [...] documented as of this encounter Care Teams Chemical Engineer Relationship Specialty Start Date End Date Elsewhere, Pcp PCP - General Internal Medicine 09/09/23 documented as of this encounter
--- OUTSIDE RECORDS SUMMARY | 2025-01-25 15:00 | XMS_ITS | Encounter Summary ---
Author Organization [facility] Address [address] [place] [address] Care Team Providers Care Body Builder Name Role Phone Elsewhere, Pcp Primary Care Provider Unavailabl e Reason for Visit * Outpatient (Routine) - Closed Specialty Diagnoses / Procedures Referred By Meeta carlisle Referred To Contact Oncology Skip Amaya M.D., Ph.D. [address] [place] [phone] Phone: tel: fax: [facility] Referral ID Status Reason Start Date Expiration Date Visits Re quested Visits Authorized [id number] Closed 01/23/2025 07/25/2026 1 1 Encounter Details Date Type Department Care Team ([facility] st Contact Info) Description 01/25/2025 3:00 PM CDT Patient [facility] in [place], [place] [address] [place] [phone] Skip Amaya M.D., Ph.D. [address] [place] [address] [phone] Perla Chester Social History Tobacco Use Types Packs/Day Years Used Date Smoking Tobacco: Never Passive Smoke Exposure: Past Smokeless Tobacco: Never Passive Exposure Comments:Ch ildhood exposure. Alcohol Use Standard Drinks/Week Comments Not Currently 1 (1 standard drink = 0.6 oz pur e alcohol) 0-1 drink per week [facility] Utilities Answer Date Recorded In [...] your living situation today? I have a [facility] place to live 12/23/2024 Education Answer Date Recorded What is the highest level of school you have completed or the highest degree you have received? 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 [address] [place] [phone] Cecily Nash L.I.C.S.W. [address] [place] [phone] 02/10/2025 12:00 PM CDT Lab Department of Infusion Therapy in [address] [address] Skip Amaya M.D., Ph.D. [address] [place] [phone] 02/10/2025 2:30 PM CDT Office Visit Department of Oncology in [address] [phone] Rosenda Garza MPAS, P.A.-C. [address] [place] [phone] 02/11/2025 8:00 AM CDT Infusion Department of Oncology in [address] [address] Skip Amaya M.D., Ph.D. [address] [place] [phone] 02/23/2025 2:15 PM CDT Clinical Communication Virtual Review in [address] [phone] 02/25/2025 8:30 AM CDT Lab Department of Oncology in [address] [phone] Skip Amaya M.D., Ph.D. [address] [place] [phone] 02/25/2025 10:40 AM CDT Office Visit Department of Oncology in [address] [phone] Sandy Judge APRN, C.NYoselin., M.S. [address] [place] [phone] 02/25/2025 11:30 AM CDT Infusion Department of Oncology in [place], [place] [address] [place] [phone] Skip Amaya M.D., Ph.D. [address] [place] [phone] 03/04/2025 6:00 AM CDT Lab Department of Infusion Therapy in [place], [place] [address] [place] [phone] Skip Amaya M.D., Ph.D. [address] [place] [phone] 03/04/2025 8:10 AM CDT Office Visit Department of Oncology in [address] [phone] Jie Shook P.A.-C. [address] [place] [phone] 03/04/2025 9:30 AM CDT Infusion Department of Oncology in [address] [address] Skip Amaya M.D., Ph.D. [address] [place] [phone] 03/10/2025 2:15 PM CDT Clinical Communication Virtual Review in [address] [phone] 03/11/2025 6:00 AM CDT Lab Department of Laboratory Medicine and Pathology, [facility], in [address] [address] Skip Amaya M.D., Ph.D. [address] [place] [phone] 03/11/2025 7:20 AM CDT Office Visit Department of Oncology in [place], [place] [address] [place] [phone] Bipin Leal P.A.-C., M.S. [address] [place] [phone] 03/11/2025 8:00 AM CDT Infusion Department of Oncology in [place], [place] [address] [place] [phone] Skip Amaya M.D., Ph.D. [address] [place] [phone] 03/24/2025 7:30 AM CDT Appointment Department of Radiology, [facility] in [place], [place] [address] [place] [phone] Skip Amaya M.D., Ph.D. [address] [place] [phone] 03/24/2025 11:20 AM CDT Lab Department of Infusion Therapy in [place], [place] [address] [place] [phone] Skip Amaya M.D., Ph.D. [address] [place] [phone] 03/24/2025 1:30 PM CDT Office Visit Department of Oncology in [place], [place] [address] [place] [phone] Skip Amaya M.D., Ph.D. [address] [place] [phone] 03/25/2025 7:00 AM CDT Infusion Department of Oncology in [place], [place] [address] [place] [phone] Skip Amaya M.D., Ph.D. [address] [place] [phone] 03/29/2025 2:30 PM CDT Clinical Communication Virtual Review in [place], [place] 200 [place] [address] 04/01/2025 6:00 AM CDT Lab Department of Infusion Therapy in [address] [address] Skip Amaya M.D., Ph.D. [address] [place] [phone] 04/01/2025 8:20 AM CDT Office Visit Department of Oncology in [address] [phone] Precious Hill M.D., Ph.D. [address] [place] [phone] 04/01/2025 9:00 AM CDT Infusion Department of Oncology in [address] [address] Skip Amaya M.D., Ph.D. [address] [place] [phone] 04/07/2025 11:00 AM CDT Lab Department of Infusion Therapy in [address] [phone] Skip Amaya M.D., Ph.D. [address] [place] [phone] 04/07/2025 1:20 PM CDT Office Visit Department of Oncology in [address] [phone] Sandy Judge APRN, C.N.P., M.S. [address] [place] [phone] 04/08/2025 7:00 AM CDT Infusion Department of Oncology in [place], [place] [address] [place] [phone] Skip Amaya M.D., Ph.D. [address] [place] [phone] 04/21/2025 7:15 AM CDT Clinical Communication Virtual Review in [place], [place] 200 [place] [address] 04/22/2025 7:20 AM CDT Lab Department of Infusion Therapy in [place], [place] [address] [place] [phone] Skip Amaya M.D., Ph.D. [address] [place] [phone] 04/22/2025 9:20 AM CDT Office Visit Department of Oncology in [place], [place] [address] [place] [phone] Sandy Judge APRN, Jordy.N.P., M.S. [address] [place] [phone] 04/22/2025 10:30 AM CDT Infusion Department of Oncology in [place], [place] [address] [place] [phone] Skip Amaya M.D., Ph.D. [address] [place] [phone] 04/29/2025 11:15 AM CDT Lab Department of Oncology in [place], [place] [address] [place] [phone] Skip Amaya M.D., Ph.D. [address] [place] [phone] 04/29/2025 1:20 PM CDT Office Visit Department of Oncology in [place], [place] [address] [place] [phone] Sandy Judge APRN, C.N.P., M.S. [address] [place] [phone] 04/29/2025 2:00 PM CDT Infusion Department of Oncology in [place], [place] [address] [place] [phone] Skip Amaya M.D., Ph.D. [address] [place] [phone] documented as of this encounter Goals Goal Patient Goal Type Associated Problems Recent Progress Patient-Stated? Author Autogenerat ed Goal Care Plan Autogenerated Problem No Hedy Lees, RJustynN. documented as of this encounter Visit Diagnoses Not on filedocumented in this encounter Additional Health Concerns Active Problems Noted Date Diagnosed Date Autogenerated Problem 11/16/2024 Assessment Noted Time PHQ-9 Depression Total Score: 7 01/12/20 25 9:53 AM CDT documented as of this encounter Care Teams Body Builder Relationship Specialty Start Date End Date Elsewhere, Pcp PCP - General Internal Medicine 09/09/23 documented as of this encounter
--- OUTSIDE RECORDS SUMMARY | 2025-01-26 11:00 | XMS_ITS | Encounter Summary ---
Author Organization [facility] Address [address] [place] [address] Care Team Providers Care [employer] Name Role Phone Elsewhere, Pcp Primary Care Provider Unavailabl e Encounter Details Date Type Department Care Team (Late st Contact Info) Description 01/26/2025 11:00 AM CDT Admin Visit Department of Oncology in [place], [place] [address] [place] [address] Social History Tobacco Use Types Packs/Day Years Used Date Smoking Tobacco: Never Passive Smoke Exposure: Past Smokeless Tobacco: Never Passive Exposure Comments:Ch ildhood exposure. Alcohol Use Standard Drinks/Week Comments Not Currently 1 (1 standard drink = 0.6 oz pur e alcohol) 0-1 drink per week [facility] Utilities Answer Date Recorded In the past 12 months has e [employer], gas, oil, or water [employer] threatened to shut off services in your [...] your living situation today? I have a [facility] place to live 12/23/2024 Education Answer Date Recorded What is the highest level of school you have completed or the highest degree you have received? Master's degree (e.g., MA, MS, Katelyn, MEd, LICENSED INSURANCE SALES AGENT, KELLEE) 01/05/2025 Sex and Gender Information Value Date Recorded Sex Assigned at Male 09/10/2023 7:48 AM STUFFER Legal Sex Male 10:11 PM STUFFER Gender Identity Male 09/10/2023 7:48 AM STUFFER Sexual Orientation Straight 09/10/2023 7: 48 AM STUFFER documented as of this encounter Plan of Treatment Upcoming Encounters Date Type Department Care Team (Latest Contact Info) Description 02/08/2025 2:15 PM CDT Clinical Communication Virtual Review in [place], [place] 200 [place] [address] 02/09/2025 9:30 AM CDT Telemedicine Department of Oncology in [address] [phone] Jesica Wasserman M.B., B.Ch. [address] [place] [phone] Cecily Nash, WeroI.C.S.W. [address] [place] [phone] 02/10/2025 12:00 PM CDT Lab Department of Infusion Therapy in [place], [place] [address] [place] [phone] Skip Amaya M.D., Ph.D. [address] [place] [phone] 02/10/2025 2:30 PM CDT Office Visit Department of Oncology in [place], [place] [address] [place] [phone] Rosenda Garza MPAS, P.A.-C. [address] [place] [phone] 02/11/2025 8:00 AM CDT Infusion Department of Oncology in [place], [place] [address] [place] [phone] Skip Amaya M.D., Ph.D. [address] [place] [phone] 02/23/2025 2:15 PM CDT Clinical Communication Virtual Review in [place], [place] 200 [place] [address] 02/25/2025 8:30 AM CDT Lab Department of Oncology in [address] [phone] Skip Amaya M.D., Ph.D. [address] [place] [phone] 02/25/2025 10:40 AM CDT Office Visit Department of Oncology in [address] [phone] Sandy Judge, KASH, C.N.P., M.S. [address] [place] [phone] 02/25/2025 11:30 AM CDT Infusion Department of Oncology in [address] [address] Skip Amaya M.D., Ph.D. [address] [place] [phone] 03/04/2025 6:00 AM CDT Lab Department of Infusion Therapy in [address] [phone] Skip Amaya M.D., Ph.D. [address] [place] [phone] 03/04/2025 8:10 AM CDT Office Visit Department of Oncology in [place], [place] [address] [place] [phone] Jie Shook P.A.-C. [address] [place] [phone] 03/04/2025 9:30 AM CDT Infusion Department of Oncology in [place], [place] [address] [place] [phone] Skip Amaya M.D., Ph.D. [address] [place] [phone] 03/10/2025 2:15 PM CDT Clinical Communication Virtual Review in [place], [place] 200 [place] [phone] 03/11/2025 6:00 AM CDT Lab Department of Laboratory Medicine and Pathology, [facility] in [address] [phone] Skip Amaya M.D., Ph.D. [address] [place] [phone] 03/11/2025 7:20 AM CDT Office Visit Department of Oncology in [address] [phone] Bipin Leal P.A.-C., M.S. [address] [place] [phone] 03/11/2025 8:00 AM CDT Infusion Department of Oncology in [place], [place] [address] [place] [phone] Skip Amaya M.D., Ph.D. [address] [place] [phone] 03/24/2025 7:30 AM CDT Appointment Department of Radiology, [facility], in [place], [place] [address] [place] [phone] Skip Amyaa M.D., Ph.D. [address] [place] [phone] 03/24/2025 11:20 AM CDT Lab Department of Infusion Therapy in [place], [place] [address] [place] [phone] Skip Amaya M.D., Ph.D. [address] [place] [phone] 03/24/2025 1:30 PM CDT Office Visit Department of Oncology in [address] [address] Skip Amaya M.D., Ph.D. [address] [place] [phone] 03/25/2025 7:00 AM CDT Infusion Department of Oncology in [place], [place] [address] [place] [phone] Skip Amaya M.D., Ph.D. [address] [place] [phone] 03/29/2025 2:30 PM CDT Clinical Communication Virtual Review in [place], [place] 200 [place] [address] 04/01/2025 6:00 AM CDT Lab Department of Infusion Therapy in [address] [phone] Skip Amaya M.D., Ph.D. [address] [place] [phone] 04/01/2025 8:20 AM CDT Office Visit Department of Oncology in [address] [phone] Precious Hill M.D., Ph.D. [address] [place] [phone] 04/01/2025 9:00 AM CDT Infusion Department of Oncology in [address] [address] Skip Amaya M.D., Ph.D. [address] [place] [phone] 04/07/2025 11:00 AM CDT Lab Department of Infusion Therapy in [address] [address] Skip Amaya M.D., Ph.D. [address] [place] [phone] 04/07/2025 1:20 PM CDT Office Visit Department of Oncology in [address] [phone] Sandy Judge APRN, C.N.P., M.S. [address] [place] [phone] 04/08/2025 7:00 AM CDT Infusion Department of Oncology in [address] [phone] Skip Amaya M.D., Ph.D. [address] [place] [phone] 04/21/2025 7:15 AM CDT Clinical Communication Virtual Review in [address] [phone] 04/22/2025 7:20 AM CDT Lab Department of Infusion Therapy in [place], [place] [address] [place] [phone] Skip Amaya M.D., Ph.D. [address] [place] [phone] 04/22/2025 9:20 AM CDT Office Visit Department of Oncology in [place], [place] [address] [place] [phone] Sandy Judge APRN, C.N.P., M.S. [address] [place] [phone] 04/22/2025 10:30 AM CDT Infusion Department of Oncology in [place], [place] [address] [place] [phone] Skip Amaya M.D., Ph.D. [address] [place] [phone] 04/29/2025 11:15 AM CDT Lab Department of Oncology in [place], [place] [address] [place] [phone] Skip Amaya M.D., Ph.D. [address] [place] [phone] 04/29/2025 1:20 PM CDT Office Visit Department of Oncology in [place], [place] [address] [place] [phone] Sandy Judge APRN, C.N.P., M.S. [address] [place] [phone] 04/29/2025 2:00 PM CDT Infusion Department of Oncology in [place], [place] [address] [place] [phone] Skip Amaya M.D., Ph.D. [address] [place] [address] documented as of this encounter Goals Goal [...] documented as of this encounter Care Teams [employer] Relationship Specialty Start Date End Date Elsewhere, Pcp PCP - General Internal Medicine 09/09/23 documented as of this encounter
--- OUTSIDE RECORDS SUMMARY | 2025-01-27 11:20 | XMS_ITS | Encounter Summary ---
Author Organization [facility] Address [address] [place] [id number] Care Team Providers Care Director Of Midwifery/Staff Midwife Name Role Phone Elsewhere, Pcp Primary Care Provider Unavailabl e Reason for Visit * Episode Based Medications (Routine) - Authorized Specialty Diagnoses / Procedures Referred By Contac t Referred To Contact Diagnoses Malignant Neoplasm Of Pancreas Tail (HCC) Skip Amaya M.D., Ph.D. [address] [place] [phone] Phone: tel: fax: Department of Oncology in [place], [place] [address] [place] [phone] Phone: tel: Referral ID Status Reason Start Date Expiration Date V isits Requested Visits Authorized [id number] Authorized 01/21/2025 01/21/2027 99 99 Encounter Details Date Type Department Care Team (Late st Contact Info) Description 01/27/2025 11:20 AM CDT Lab Department of Infusion Therapy in [place], [place] [address] [place] [phone] Skip Amaya M.D., Ph.D. 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 Alcohol Use Standard Drinks/Week Comments Not Currently 1 (1 standard drink = 0.6 oz pur e alcohol) 0-1 drink per week [facility] Utilities Answer Date Recorded In the past [...] your living situation today? I have a [facility] place to live 12/23/2024 Education Answer Date Recorded What is the highest level of school you have completed or the highest degree you have received? Master's degree (e.g., MA, MS, Katelyn, MEd, [employer], KELLEE) 01/05/2025 Sex and Gender Information Value Date Recorded Sex Assigned at Male 09/10/2023 7:48 AM MEASUREMENT DEPARTMENT CHIEF CLERK Legal Sex Male 10:11 PM MEASUREMENT DEPARTMENT CHIEF CLERK Gender Identity Male 09/10/2023 7:48 AM MEASUREMENT DEPARTMENT CHIEF CLERK Sexual Orientation Straight 09/10/2023 7: 48 AM MEASUREMENT DEPARTMENT CHIEF CLERK documented as of this encounter Plan of Treatment Upcoming Encounters Date Type Department Care Team (Latest Contact Info) Description 02/08/2025 2:15 PM CDT Clinical Communication Virtual Review in [place], [place] [address] [place] [address] 02/09/2025 9:30 AM CDT Telemedicine Department of Oncology in [address] [phone] Jesica Wasserman M.B., B.Ch. [address] [place] [address] Cecily Nash L.I.C.S.W. [address] [place] [address] 02/10/2025 12:00 PM CDT Lab Department of Infusion Therapy in [place], [place] [address] [place] [phone] Skip Amaya M.D., Ph.D. [address] [place] [phone] 02/10/2025 2:30 PM CDT Office Visit Department of Oncology in [place], [place] [address] [place] [phone] Rosenda Garza, KRISHNAS, P.A.-C. [address] [place] [phone] 02/11/2025 8:00 AM CDT Infusion Department of Oncology in [place], [place] [address] [place] [phone] Skip Amaya M.D., Ph.D. [address] [place] [phone] 02/23/2025 2:15 PM CDT Clinical Communication Virtual Review in [place], [place] 200 [place] [address] 02/25/2025 8:30 AM CDT Lab Department of Oncology in [place], [place] [address] [place] [phone] Skip Amaya M.D., Ph.D. [address] [place] [phone] 02/25/2025 10:40 AM CDT Office Visit Department of Oncology in [place], [place] [address] [place] [phone] Sandy Judge APRN, C.N.P., M.S. [address] [place] [phone] 02/25/2025 11:30 AM CDT Infusion Department of Oncology in [place], [place] [address] [place] [phone] Skip Amaya M.D., Ph.D. [address] [place] [phone] 03/04/2025 6:00 AM CDT Lab Department of Infusion Therapy in [address] [phone] Skip Amaya M.D., Ph.D. [address] [place] [phone] 03/04/2025 8:10 AM CDT Office Visit Department of Oncology in [place], [place] [address] [place] [phone] Jie Shook P.A.-C. [address] [place] [phone] 03/04/2025 9:30 AM CDT Infusion Department of Oncology in [place], [place] [address] [place] [phone] Skip Amaya M.D., Ph.D. [address] [place] [phone] 03/10/2025 2:15 PM CDT Clinical Communication Virtual Review in [place], [place] 200 [place] [address] 03/11/2025 6:00 AM CDT Lab Department of Laboratory Medicine and Pathology, [place], in [place], [place] [address] [place] [phone] Skip Amaya M.D., Ph.D. [address] [place] [phone] 03/11/2025 7:20 AM CDT Office Visit Department of Oncology in [place], [place] [address] [place] [phone] Bipin Leal P.A.-C., M.S. [address] [place] [phone] 03/11/2025 8:00 AM CDT Infusion Department of Oncology in [place], [place] [address] [place] [phone] Skip Amaya M.D., Ph.D. [address] [place] [phone] 03/24/2025 7:30 AM CDT Appointment Department of Radiology, [facility], in [place], [place] [address] [place] [phone] Skip Amaya M.D., Ph.D. [address] [place] [phone] 03/24/2025 11:20 AM CDT Lab Department of Infusion Therapy in [address] [phone] Skip Amaya M.D., Ph.D. [address] [place] [phone] 03/24/2025 1:30 PM CDT Office Visit Department of Oncology in [place], [place] [address] [place] [phone] Skip Amaya M.D., Ph.D. [address] [place] [phone] 03/25/2025 7:00 AM CDT Infusion Department of Oncology in [place], [place] [address] [place] [phone] Skip Amaya M.D., Ph.D. [address] [place] [phone] 03/29/2025 2:30 PM CDT Clinical Communication Virtual Review in [place], [place] 200 [place] [address] 04/01/2025 6:00 AM CDT Lab Department of Infusion Therapy in [place], [place] [address] [place] [phone] Skip Amaya M.D., Ph.D. [address] [place] [phone] 04/01/2025 8:20 AM CDT Office Visit Department of Oncology in [address] [phone] Precious Hill M.D., Ph.D. [address] [place] [phone] 04/01/2025 9:00 AM CDT Infusion Department of Oncology in [place], [place] [address] [place] [phone] Skip Amaya M.D., Ph.D. [address] [place] [phone] 04/07/2025 11:00 AM CDT Lab Department of Infusion Therapy in [address] [phone] Skip Amaya M.D., Ph.D. [address] [place] [phone] 04/07/2025 1:20 PM CDT Office Visit Department of Oncology in [place], [place] [address] [place] [phone] Sandy Judge APRN, C.N.P., M.S. [address] [place] [phone] 04/08/2025 7:00 AM CDT Infusion Department of Oncology in [place], [place] [address] [place] [phone] Skip Amaya M.D., Ph.D. [address] [place] [phone] 04/21/2025 7:15 AM CDT Clinical Communication Virtual Review in [place], [place] 200 [place] [address] 04/22/2025 7:20 AM CDT Lab Department of Infusion Therapy in [place], [place] [address] [place] [phone] Skip Amaya M.D., Ph.D. [address] [place] [phone] 04/22/2025 9:20 AM CDT Office Visit Department of Oncology in [place], [place] [address] [place] [phone] Sandy Judge APRN, C.NYoselin., M.S. [address] [place] [phone] 04/22/2025 10:30 AM CDT Infusion Department of Oncology in [place], [place] [address] [place] [phone] Skip Amaya M.D., Ph.D. [address] [place] [phone] 04/29/2025 11:15 AM CDT Lab Department of Oncology in [place], [place] [address] [place] [phone] Skip Amaya M.D., Ph.D. [address] [place] [phone] 04/29/2025 1:20 PM CDT Office Visit Department of Oncology in [place], [place] [address] [place] [phone] Sandy Judge APRN, C.N.P., M.S. [address] [place] [phone] 04/29/2025 2:00 PM CDT Infusion Department of Oncology in [place], [place] [address] [place] [phone] Skip Amaya M.D., Ph.D. [address] [place] [phone] documented as of this encounter Goals Goal [...] (CA 19-9) (01/27/2025 10:55 AM CDT) Pathologist [facility] Carbohydrate Ag 19-9, S 80973(H) <35 U/mL 01/28/2025 12:50 PM CDT [facility] Comment: ----ADDITIONAL INFORMATION---- The testing method is an immunoenzymatic assay manufactured by [employer] and performed on the [employer] DxI 800. Values obtained with different assay methods or kits may be different and cannot be used interchangeably. Test results cannot be interpreted as absolute evidence for the presence or absence of malignant disease. Blood (Blood, Venous) 01/27/2025 10:55 AM CDT 01/28/2025 11:37 AM CDT Skip Amaya M.D., Ph.D. LAB BLOOD ADD-ON Final R esult [facility] [address] [place] [address] Formerly named [facility] [address] [place] [address] * APTT (Activated Partial Thromboplastin Time) (01/27/2025 10:55 AM CDT) Pathologist [facility] Activated Partial Thrombopl Time, P 26 25 - 37 sec 01/27/2025 11:27 AM CDT DTL Blood (Blood, Venous) 01/27/2025 10:55 AM CDT 01/27/2025 11:07 AM CDT us Skip Amaya M.D., Ph.D. LAB BLOOD ADD-ON Final R esult Performing Organization Address [facility] Co de Phone Number [facility] [address] [place] [address], [facility] [address] [place] [address] * Prothrombin Time (PT) (01/27/2025 10:55 AM CDT) [facility] Prothrombin Time, P 11.4 9.4 - 12.5 sec 01/27/2025 11:27 AM CDT DTL INR 1.0 0.9 - 1.1 01/27/2025 11:27 AM CDT DT Comment: ----ADDITIONAL INFORMATION---- Standard intensity warfarin therapeutic range: 2.0 to 3.0 High intensity warfarin therapeutic range: 2.5 to 3.5 Blood (Blood, Venous) 01/27/2025 10:55 AM CDT 01/27/2025 11:07 AM CDT Skip Amaya M.D., Ph.D. LAB BLOOD ADD-ON Final R esult Performing Organization Address [facility] Co de Phone Number [facility] [address] [place] [address], [facility] [address] [place] [address] * LD (Lactate Dehydrogenase) (01/27/2025 10:55 AM CDT) [facility] LD 146 122 - 222 U/L 01/27/2025 12:06 PM CDT DTL Blood (Blood, Venous) 01/27/2025 10:55 AM CDT 01/27/2025 11:40 AM CDT us Skip Amaya M.D., Ph.D. LAB BLOOD NON ADD-ON Fin al Result Performing Organization Address City/[facility]/ZIP Co de Phone Number [facility] [address] [place] [address] * Phosphorus Inorganic (01/27/2025 10:55 AM CDT) Phosphorus (Inorganic), S 3.0 2.5 - 4.5 mg/dL 01/27/2025 11:50 AM CDT DTL Blood (Blood, Venous) 01/27/2025 10:55 AM CDT 01/27/2025 11:23 AM CDT us Skip Amaya M.D., Ph.D. LAB BLOOD ADD-ON Final R esult Performing Organization Address City/[facility] Co de Phone Number [facility] [address] [place] [address] * Magnesium (01/27/2025 10:55 AM CDT) Magnesium, S 2.2 1.7 - 2.3 mg/dL 01/27/2025 11:50 AM CDT DTL Blood (Blood, Venous) 01/27/2025 10:55 AM CDT 01/27/2025 11:23 AM CDT us Skip Amaya M.D., Ph.D. LAB BLOOD ADD-ON Final R esult [facility] [address] [place] [address] * (ABNORMAL) Comprehensive Metabolic Panel (01/27/2025 10:55 [...] Ph.D. LAB BLOOD ADD-ON Final R esult [facility] [address] [place] [address], [facility] DTL [facility] [address] [place] [address] * (ABNORMAL) CBC with Differential, Blood (01/27/2025 [...] Ph.D. LAB BLOOD ADD-ON Final R esult [facility] [address] [place] [address], [place] DTL [facility] [address] [place] [address] [facility] [address] [place] [address] documented in this encounter Visit Diagnoses Diagnosis [...] as of this encounter Care Teams Director Of Midwifery/Staff Midwife Relationship Specialty Start Date End Date Elsewhere, Pcp PCP - General Internal Medicine 09/09/23 documented as of this encounter
--- OUTSIDE RECORDS SUMMARY | 2025-01-27 13:20 | XMS_ITS | Encounter Summary ---
Author Organization [facility] Address [address] [place] [id number] Care Team Providers Care Production Troubleshooter Name Role Phone Elsewhere, Pcp Primary Care Provider Unavailabl e Reason for Visit * Episode Based Medications (Routine) - Authorized Specialty Diagnoses / Procedures Referred By Contac t Referred To Contact Diagnoses Malignant Neoplasm Of Pancreas Tail (HCC) Skip Amaya M.D., Ph.D. [address] [place] [phone] Phone: tel: fax: Department of Oncology in [place], [place] [address] [place] [phone] Phone: tel: Referral ID Status Reason Start Date Expiration Date V isits Requested Visits Authorized [id number] Authorized 01/21/2025 01/21/2027 99 99 Encounter Details Date Type Department Care Team (Late st Contact Info) Description 01/27/2025 1:20 PM CDT Office Visit Department of Oncology in [place], [place] [address] [place] [phone] Lionel Swenson M.D. [address] [place] [phone] 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) Social History Tobacco Use Types Packs/Day Years Used Date Smoking Tobacco: Never Passive Smoke Exposure: Past Smokeless Tobacco: Never Passive Exposure Comments:Ch ildhood exposure. Alcohol Use Standard Drinks/Week Comments Not Currently 1 (1 standard drink = 0.6 oz pur e alcohol) 0-1 drink per week [facility] Utilities Answer Date Recorded In [...] your living situation today? I have a [facility] place to live 12/23/2024 Education Answer Date Recorded What is the highest level of school you have completed or the highest degree you have received? Master's degree (e.g., MA, MS, Katelyn, MEd, [employer]ONER [employer]SPORT TECHNICIAN, KELLEE) 01/05/2025 Sex and Gender Information Value Date Recorded Sex Assigned at Male 09/10/2023 7:48 AM TOWER CRANE OPERATOR Legal Sex Male 10:11 PM TOWER CRANE OPERATOR Gender Identity Male 09/10/2023 7:48 AM TOWER CRANE OPERATOR Sexual Orientation Straight 09/10/2023 7: 48 AM TOWER CRANE OPERATOR documented as of this encounter Last Filed Vital Signs Vital Sign Reading Time Taken Comments Blood Pressure 116/72 01/27/2025 1:12 PM CDT Pulse 87 01/27/2025 1:12 PM CDT Temperature 36.2 C (97.2 F) 01/27/2025 1:12 PM CDT Respiratory Rate 16 01/27/2025 1:12 PM CDT Oxygen Saturation 100% 01/27/2025 1:12 PM CDT Inhaled Oxygen Concentration - - Weight 95.5 kg (210 lb 8.6 oz) 01/27/2025 1:12 P M CDT Height 182.5 cm (5' 11.85) 01/27/2025 1:12 PM C DT Body Mass Index 28.67 01/27/2025 1:12 PM CDT documented in this encounter Progress Notes * Lionel Swenson M.D. - 01/27/2025 1:20 PM CDT PRIMARY CARE PHYSICIAN ELSEWHERE, PCP LOCAL ONCOLOGIST No care steam shovel engineer to display [facility] Jesica Wasserman M.B., B.Ch. Skip Amaya M.D., Ph.D. CHIEF COMPLAINT / REASON FOR VISIT Noel Mata is a 69 y.o. male who presents for evaluation of metastatic pancreatic adenocarcinoma HISTORY OF PRESENT ILLNESS Oncology History Oncology [...] Genotyping Cell-Free DNA KRAS: Result Summary POSITIVE 12/30/2024 Clinical Stage Staging form: Exocrine Pancreas, AJCC 8th Edition - Clinical stage from 12/30/2024: Stage IV (pM1) Stage prefix: Initial diagnosis 01/05/2025 Genetic Testing and Tumor Genotyping Germline genetic testing in 2024; Multi-Cancer + RNA panel through [facility]. No pathogenic variants identified. One heterozygous variant of uncertain significance found in the RET gene, specifically named c.1737C>G (p.Imy120Flg). 01/28/2025 - Research Study Participant Research Study: Study of Quemliclustat and Chemotherapy Versus Placebo and Chemotherapy in PatientsWith Metastatic Pancreatic Ductal Adenocarcinoma ([id number]) Treatment Protocol: [facility] ( Quemliclustat (AB680) or Placebo / PACLitaxel PROTEIN BOUND / Gemcitabine ) He and his returned to initiate first-line systemic therapy with gemcitabine Abraxane and a novel agent on a clinical trial. He has had no new or progressive symptoms since he was last seen here. He has been struggling understandably with some anxiety and using lorazepam as needed. He tells me has underlying peripheral neuropathy in his feet with decreased sensation that was noted on neurologic examination a few years back. They wonder about his balance as he has had some falls, though this has been going on for a year or 2. There are often times where he has no troubles withhis balance. This seems to be more of a problem when it is dark in the room, and when he has recently stood up even though he does not feel symptomatically orthostatic. No headaches, nausea, visual changes, or any other neurologic symptom. Current Medications[1] REVIEW OF SYSTEMS As per HPI OBJECTIVE BP 116/72 (BP Location: Right arm, Patient Position: Sitting, Cuff Size: Regular) Pulse 87 Temp36.2 ??C (Temporal) Resp 16 Ht 182.5 cm Wt 95.5 kg SpO2 100% BMI 28.67 kg/m?? Blood pressure supine was 130/80, blood pressure standing up was 90/60. He was asymptomatic. PHYSICAL EXAM General: Looks well in no acute distress Head neck: Exam normal Lungs: Exam normal Heart: regular rate and rhythm without murmur Lymph: No palpable lymphadenopathy Abdomen: Soft nontender nondistended with no palpable organomegaly. Bowel sounds normal. Extremities: no lower extremity edema, peripheral pulses are intact. Neuro: Examined and normal, with the exception of modest right-sided [id number] dysmetria and decreased sensation in the lower extremities. Tandem gait is intact, Romberg negative, reflexes symmetric. LABORATORY DATA Lab data reviewed. RADIOLOGICAL DATA Radiology data reviewed. Current Therapy: [facility] ( Quemliclustat (AB680) or Placebo / PACLitaxel PROTEIN BOUND / Gemcitabine ) Current Disease Status: Not able to assess (baseline visit) ECOG Performance Status: 1 Intent of Therapy: Control Intent to Change Therapy: No ASSESSMENT / PLAN #1 Malignant Neoplasm Of Pancreas Tail (HCC) Clinically he is doing reasonably well with mild fatigue as his main symptom along with some anxiety and ongoing peripheral neuropathy and orthostasis perhaps even complicated a bit by bradycardia. He is already adjusted to be careful when he gets up at night, sitting on the edge of the bed, turning on a light, and they will continue to protect against falls that I think are due to his orthostasis and peripheral neuropathy with anesthesia in his feet that has longstanding. Feels any new or progressive neurologic symptoms he will let us know. We will proceed with day 1 cycle 1 and answered all his questions today. PATIENT EDUCATION Ready to learn, no apparent learning barriers were identified; learning preferences include listening. Explained diagnosis and treatment plan; patient expressed understanding of the content. ADMINISTRATIVE BILLING I personally spent 40 minutes in care of the patient today. Time includes both non face to face andface to face patient care. [1] Current Outpatient Medications: acetaminophen (TYLENOL) 500 mg [...] total of 450 mg, Disp: , Rfl: escitalopram (LEXAPRO) 20 mg [...] needed for chest pain., Disp: , Rfl: ondansetron (Zofran) 8 mg tablet, Take 1 tablet (8 mg total) by mouth every 8 (eight) hours as needed for nausea or vomiting (unrelieved by prochlorperazine)., Disp: 30 tablet, Rfl: 3 oxyCODONE (Roxicodone) 5 mg immediate release tablet, Take 1-2 tablets (5-10 mg total) by mouth every 4 (four) hours as needed for severe pain or score 7-10 of 10 Indication: Chronic Pain/Nonacute Pain., Disp: 30 tablet, Rfl: 0 prochlorperazine (Compazine) 10 mg tablet, Take 1 tablet (10 mg total) by mouth every 6 (six) hoursas needed for nausea or vomiting., Disp: 30 tablet, Rfl: 3 sildenafiL (VIAGRA) 100 mg tablet, Take 100 mg by mouth as needed for erectile dysfunction., Disp: , Rfl: No current facility-administered medications for this visit. documented in this encounter Plan of Treatment Upcoming Encounters Date Type Department Care Team (Latest Contact Info) Description 02/08/2025 2:15 PM CDT Clinical Communication Virtual Review in [place], [place] [address] [place] [phone] 02/09/2025 9:30 AM CDT Telemedicine Department of Oncology in [address] [phone] Jesica Wasserman M.B., B.Ch. [address] [place] [phone] Cecily Nash, L.I.C.S.W. [address] [place] [phone] 02/10/2025 12:00 PM CDT Lab Department of Infusion Therapy in [address] [phone] Skip Amaya M.D., Ph.D. [address] [place] [phone] 02/10/2025 2:30 PM CDT Office Visit Department of Oncology in [address] [phone] Rosenda Garza MPAS, P.A.-C. [address] [place] [phone] 02/11/2025 8:00 AM CDT Infusion Department of Oncology in [place], [place] [address] [place] [phone] Skip Amaya M.D., Ph.D. [address] [place] [phone] 02/23/2025 2:15 PM CDT Clinical Communication Virtual Review in [place], [place] [address] [place] [phone] 02/25/2025 8:30 AM CDT Lab Department of Oncology in [place], [place] [address] [place] [phone] Skip Amaya M.D., Ph.D. [address] [place] [phone] 02/25/2025 10:40 AM CDT Office Visit Department of Oncology in [place], [place] [address] [place] [phone] Sandy Judge APRN, C.N.P., M.S. [address] [place] [phone] 02/25/2025 11:30 AM CDT Infusion Department of Oncology in [address] [phone] Skip Amaya M.D., Ph.D. [address] [place] [phone] 03/04/2025 6:00 AM CDT Lab Department of Infusion Therapy in [address] [phone] Skip Amaya M.D., Ph.D. [address] [place] [phone] 03/04/2025 8:10 AM CDT Office Visit Department of Oncology in [place], [place] [address] [place] [phone] Jie Shook P.A.-C. [address] [place] [phone] 03/04/2025 9:30 AM CDT Infusion Department of Oncology in [address] [phone] Skip Amaya M.D., Ph.D. [address] [place] [phone] 03/10/2025 2:15 PM CDT Clinical Communication Virtual Review in [address] [phone] 03/11/2025 6:00 AM CDT Lab Department of Laboratory Medicine and Pathology, [facility] in [address] [phone] Skip Amaya M.D., Ph.D. [address] [place] [phone] 03/11/2025 7:20 AM CDT Office Visit Department of Oncology in [address] [phone] Bipin Leal P.A.-C., M.S. [address] [place] [phone] 03/11/2025 8:00 AM CDT Infusion Department of Oncology in [address] [phone] Skip Amaya M.D., Ph.D. [address] [place] [phone] 03/24/2025 7:30 AM CDT Appointment Department of Radiology, [facility] in [address] [phone] Skip Amaya M.D., Ph.D. [address] [place] [phone] 03/24/2025 11:20 AM CDT Lab Department of Infusion Therapy in [place], [place] [address] [place] [phone] Skip Amaya M.D., Ph.D. [address] [place] [phone] 03/24/2025 1:30 PM CDT Office Visit Department of Oncology in [place], [place] [address] [place] [phone] Skpi Amaya M.D., Ph.D. [address] [place] [phone] 03/25/2025 7:00 AM CDT Infusion Department of Oncology in [place], [place] [address] [place] [phone] Skip Amaya M.D., Ph.D. [address] [place] [phone] 03/29/2025 2:30 PM CDT Clinical Communication Virtual Review in [place], [place] [address] [place] [address] 04/01/2025 6:00 AM CDT Lab Department of Infusion Therapy in [place], [place] [address] [place] [phone] Skip Amaya M.D., Ph.D. [address] [place] [phone] 04/01/2025 8:20 AM CDT Office Visit Department of Oncology in [address] [phone] Precious Hill M.D., Ph.D. [address] [place] [phone] 04/01/2025 9:00 AM CDT Infusion Department of Oncology in [place], [place] [address] [place] [phone] Skip Amaya M.D., Ph.D. [address] [place] [phone] 04/07/2025 11:00 AM CDT Lab Department of Infusion Therapy in [address] [phone] Skip Amaya M.D., Ph.D. [address] [place] [phone] 04/07/2025 1:20 PM CDT Office Visit Department of Oncology in [address] [phone] Sandy Judge, KASH, C.N.P., M.S. [address] [place] [phone] 04/08/2025 7:00 AM CDT Infusion Department of Oncology in [address] [phone] Skip Amaya M.D., Ph.D. [address] [place] [phone] 04/21/2025 7:15 AM CDT Clinical Communication Virtual Review in [place], [place] [address] [place] [address] 04/22/2025 7:20 AM CDT Lab Department of Infusion Therapy in [address] [phone] Skip Amaya M.D., Ph.D. [address] [place] [phone] 04/22/2025 9:20 AM CDT Office Visit Department of Oncology in [place], [place] [address] [place] [phone] Sandy Judge APRN, Jordy.N.Bhavin., M.S. [address] [place] [phone] 04/22/2025 10:30 AM CDT Infusion Department of Oncology in [place], [place] [address] [place] [phone] Skip Amaya M.D., Ph.D. [address] [place] [phone] 04/29/2025 11:15 AM CDT Lab Department of Oncology in [address] [phone] Skip Amaya M.D., Ph.D. [address] [place] [phone] 04/29/2025 1:20 PM CDT Office Visit Department of Oncology in [address] [phone] Sandy Judge APRN, Jordy.N.P., M.S. [address] [place] [phone] 04/29/2025 2:00 PM CDT Infusion Department of Oncology in [address] [phone] Skip Amaya M.D., Ph.D. [address] [place] [phone] documented as of this encounter Goals Goal Patient Goal Type Associated Problems Recent Progress Patient-Stated? Author Autogenerat ed Goal Care Plan Autogenerated Problem No Lempke, Hedy K, R.N. documented as of this encounter Visit Diagnoses Diagnosis Malignant Neoplasm Of Pancreas Tail (HCC)- Primary documented in this encounter Additional Health Concerns Active Problems Noted Date Diagnosed Date Autogenerated Problem 11/16/2024 Infection Onset Date Last Indicated Resolved Time Protective Environment 01/28/2025 01/28/2025 Assessment Noted Time PHQ-9 Depression Total Score: 7 01/12/20 25 9:53 AM CDT documented as of this encounter Care Teams Production Troubleshooter Relationship Specialty Start Date End Date Elsewhere, Pcp PCP - General Internal Medicine 09/09/23 documented as of this encounter
--- OUTSIDE RECORDS SUMMARY | 2025-01-27 14:20 | XMS_ITS | Encounter Summary ---
Author Organization [facility] Address [address] [place] [address] Care Team Providers Care Director Clinical Applications Name Role Phone Elsewhere, Pcp Primary Care Provider Unavailabl e Reason for Visit * Episode Based Medications (Routine) - Authorized Specialty Diagnoses / Procedures Referred By Contac t Referred To Contact Diagnoses Malignant Neoplasm Of Pancreas Tail (HCC) Skip Amaya M.D., Ph.D. [address] [place] [phone] Phone: tel: fax: Department of Oncology in [place], [place] [address] [place] [phone] Phone: tel: Referral ID Status Reason Start Date Expiration Date V isits Requested Visits Authorized [id number] Authorized 01/21/2025 01/21/2027 99 99 Encounter Details Date Type Department Care Team (Late st Contact Info) Description 01/27/2025 2:20 PM CDT Education Department of Oncology in [place], [place] [address] [place] [phone] Skip Amaya M.D., Ph.D. 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 Alcohol Use Standard Drinks/Week Comments Not Currently 1 (1 standard drink = 0.6 oz pur e alcohol) 0-1 drink per week [facility] Utilities Answer Date Recorded In the [...] living situation today? I have a [facility] place to live 12/23/2024 Education Answer Date Recorded What is the highest level of school you have completed or the highest degree you have received? Master's degree (e.g., MA, MS, Katelyn, MEd, AEROSPACE PROJECT ENGINEER, KELLEE) 01/05/2025 Sex and Gender Information Value Date Recorded Sex Assigned at Male 09/10/2023 7:48 AM QUANTITATIVE RESEARCHER Legal Sex Male 10:11 PM QUANTITATIVE RESEARCHER Gender Identity Male 09/10/2023 7:48 AM QUANTITATIVE RESEARCHER Sexual Orientation Straight 09/10/2023 7: 48 AM QUANTITATIVE RESEARCHER documented as of this encounter Plan of Treatment Upcoming Encounters Date Type Department Care Team (Latest Contact Info) Description 02/08/2025 2:15 PM CDT Clinical Communication Virtual Review in [place], [place] [address] [place] [address] 02/09/2025 9:30 AM CDT Telemedicine Department of Oncology in [place], [place] 1025 [place] [address] Jesica Wasserman M.B., B.Ch. 10[address] [place] [address] Cecily Nash L.I.C.SJustynW. 1025 [place] [address] 02/10/2025 12:00 PM CDT Lab Department of Infusion Therapy in [place], [place] [address] [place] [phone] Skip Amaya M.D., Ph.D. [address] [place] [phone] 02/10/2025 2:30 PM CDT Office Visit Department of Oncology in [place], [place] [address] [place] [phone] Rosenda Garza, MORENA, P.A.-C. [address] [place] [phone] 02/11/2025 8:00 AM CDT Infusion Department of Oncology in [place], [place] [address] [place] [phone] Skip Amaya M.D., Ph.D. [address] [place] [phone] 02/23/2025 2:15 PM CDT Clinical Communication Virtual Review in [place], [place] 200 [place] [address] 02/25/2025 8:30 AM CDT Lab Department of Oncology in [place], [place] [address] [place] [phone] Skip Amaya M.D., Ph.D. [address] [place] [phone] 02/25/2025 10:40 AM CDT Office Visit Department of Oncology in [place], [place] [address] [place] [phone] Sandy Judge APRN, C.N.P., M.S. [address] [place] [phone] 02/25/2025 11:30 AM CDT Infusion Department of Oncology in [address] [address] Skip Amaya M.D., Ph.D. [address] [place] [phone] 03/04/2025 6:00 AM CDT Lab Department of Infusion Therapy in [address] [address] Skip Amaya M.D., Ph.D. [address] [place] [phone] 03/04/2025 8:10 AM CDT Office Visit Department of Oncology in [address] [address] Jie Shook P.A.-C. [address] [place] [phone] 03/04/2025 9:30 AM CDT Infusion Department of Oncology in [address] [address] Skip Amaya M.D., Ph.D. [address] [place] [phone] 03/10/2025 2:15 PM CDT Clinical Communication Virtual Review in [address] [address] 03/11/2025 6:00 AM CDT Lab Department of Laboratory Medicine and Pathology, [facility] in [place], [place] [address] [place] [phone] Skip Amaya M.D., Ph.D. [address] [place] [phone] 03/11/2025 7:20 AM CDT Office Visit Department of Oncology in [place], [place] [address] [place] [phone] Bipin Leal P.A.Petra., M.S. [address] [place] [phone] 03/11/2025 8:00 AM CDT Infusion Department of Oncology in [place], [place] [address] [place] [phone] Skip Amaya M.D., Ph.D. [address] [place] [phone] 03/24/2025 7:30 AM CDT Appointment Department of Radiology, [facility] in [place], [place] [address] [place] [phone] Skip Amaya M.D., Ph.D. [address] [place] [phone] 03/24/2025 11:20 AM CDT Lab Department of Infusion Therapy in [place], [place] [address] [place] [phone] Skip Amaya M.D., Ph.D. [address] [place] [phone] 03/24/2025 1:30 PM CDT Office Visit Department of Oncology in [place], [place] [address] [place] [phone] Skip Amaya M.D., Ph.D. [address] [place] [phone] 03/25/2025 7:00 AM CDT Infusion Department of Oncology in [place], [place] [address] [place] [phone] Skip Amaya M.D., Ph.D. [address] [place] [phone] 03/29/2025 2:30 PM CDT Clinical Communication Virtual Review in [place], [place] 200 [place] [address] 04/01/2025 6:00 AM CDT Lab Department of Infusion Therapy in [address] [address] Skip Amaya M.D., Ph.D. [address] [place] [phone] 04/01/2025 8:20 AM CDT Office Visit Department of Oncology in [address] [address] Precious Hlil M.D., Ph.D. [address] [place] [phone] 04/01/2025 9:00 AM CDT Infusion Department of Oncology in [place], [place] [address] [place] [phone] Skip Amaya M.D., Ph.D. [address] [place] [phone] 04/07/2025 11:00 AM CDT Lab Department of Infusion Therapy in [address] [address] Skip Amaya M.D., Ph.D. [address] [place] [phone] 04/07/2025 1:20 PM CDT Office Visit Department of Oncology in [place], [place] [address] [place] [phone] Sandy Judge APRN, Jordy.N.Bhavin., M.S. [address] [place] [phone] 04/08/2025 7:00 AM CDT Infusion Department of Oncology in [place], [place] [address] [place] [phone] Skip Amaya M.D., Ph.D. [address] [place] [phone] 04/21/2025 7:15 AM CDT Clinical Communication Virtual Review in [place], [place] 200 [place] [address] 04/22/2025 7:20 AM CDT Lab Department of Infusion Therapy in [place], [place] [address] [place] [phone] Skip Amaya M.D., Ph.D. [address] [place] [phone] 04/22/2025 9:20 AM CDT Office Visit Department of Oncology in [place], [place] [address] [place] [phone] Sandy Judge APRN, Jordy.N.Bhavin., M.S. [address] [place] [phone] 04/22/2025 10:30 AM CDT Infusion Department of Oncology in [place], [place] [address] [place] [phone] Skip Amaya M.D., Ph.D. [address] [place] [phone] 04/29/2025 11:15 AM CDT Lab Department of Oncology in [place], [place] [address] [place] [phone] Skip Amaya M.D., Ph.D. [address] [place] [phone] 04/29/2025 1:20 PM CDT Office Visit Department of Oncology in [place], [place] [address] [place] [phone] Sandy Judge, KASH, C.N.P., M.S. [address] [place] [phone] 04/29/2025 2:00 PM CDT Infusion Department of Oncology in [place], [place] [address] [place] [phone] Skip Amaya M.D., Ph.D. [address] [place] [phone] documented as of this encounter Goals Goal Patient Goal Type Associated Problems Recent Progress Patient-Stated? Author Autogenerat ed Goal Care Plan Autogenerated Problem Hedy Frankel, RDean documented as of this encounter Visit Diagnoses Diagnosis Malignant Neoplasm Of Pancreas Tail (HCC)- Primary documented in this encounter Additional Health Concerns Active Problems Noted Date Diagnosed Date Autogenerated Problem 11/16/2024 Assessment Noted Time PHQ-9 Depression Total Score: 7 01/12/20 25 9:53 AM CDT documented as of this encounter Care Teams Director Clinical Applications Relationship Specialty Start Date End Date Elsewhere, Pcp PCP - General Internal Medicine 09/09/23 documented as of this encounter
--- OUTSIDE RECORDS SUMMARY | 2025-01-28 07:00 | XMS_ITS | Encounter Summary ---
Author Organization [facility] Address [address] [place] [address] Care Team Providers Care Barley Steeper Name Role Phone Elsewhere, Pcp Primary Care Provider Unavailabl e Reason for Visit * Episode Based Medications (Routine) - Authorized Specialty Diagnoses / Procedures Referred By Contac t Referred To Contact Diagnoses Malignant Neoplasm Of Pancreas Tail (HCC) Skip Amaya M.D., Ph.D. [address] [place] [phone] Phone: tel: fax: Department of Oncology in [place], [place] [address] [place] [phone] Phone: tel: Referral ID Status Reason Start Date Expiration Date V isits Requested Visits Authorized [id number] Authorized 01/21/2025 01/21/2027 99 99 Encounter Details Date Type Department Care Team (Late st Contact Info) Description 01/28/2025 7:00 AM CDT Infusion Department of Oncology in [place], [place] [address] [place] [phone] Skip Amaya M.D., Ph.D. 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 Alcohol Use Standard Drinks/Week Comments Not Currently 1 (1 standard drink = 0.6 oz pur e alcohol) 0-1 drink per week [facility] Utilities Answer Date Recorded In the past [...] your living situation today? I have a [facility] place to live 12/23/2024 Education Answer Date Recorded What is the highest level of school you have completed or the highest degree you have received? Master's degree (e.g., MA, MS, Katelyn, MEd, BIOMEDICAL EQUIPMENT SUPPORT SPECIALIST, KELLEE) 01/05/2025 Sex and Gender Information Value Date Recorded Sex Assigned at Male 09/10/2023 7:48 AM MANUAL MACHINIST Legal Sex Male 10:11 PM MANUAL MACHINIST Gender Identity Male 09/10/2023 7:48 AM MANUAL MACHINIST Sexual Orientation Straight 09/10/2023 7: 48 AM MANUAL MACHINIST documented as of this encounter Last Filed Vital Signs Vital Sign Reading Time Taken Comments Blood Pressure 126/74 01/28/2025 7:46 AM CDT Pulse 42 01/28/2025 7:46 AM CDT Temperature - - Respiratory Rate - - Oxygen Saturation - - Inhaled Oxygen Concentration - - Weight 95.5 kg (210 lb 8.6 oz) 01/28/2025 7:46 A M CDT Height - - Body Mass Index 28.67 01/27/2025 1:12 PM CDT documented in this encounter Miscellaneous Notes * Addendum Note - Muriel Nguyen M.S.N., R.N. - 01/28/2025 7:00 AM CDT Addended by: MURIEL NGUYEN on: 02/02/2025 11:27 AM Modules accepted: Orders documented in this encounter Plan of Treatment Upcoming Encounters Date Type Department Care Team (Latest Contact Info) Description 02/08/2025 2:15 PM CDT Clinical Communication Virtual Review in [place], [place] 200 [place] [address] 02/09/2025 9:30 AM CDT Telemedicine Department of Oncology in [address] [phone] Jesica Wasserman M.B., B.Ch. [address] [place] [phone] Cecily Nash L.I.C.S.W. [address] [place] [phone] 02/10/2025 12:00 PM CDT Lab Department of Infusion Therapy in [place], [place] [address] [place] [address] [phone] Skip Amaya M.D., Ph.D. [address] [place] [phone] 02/10/2025 2:30 PM CDT Office Visit Department of Oncology in [place], [place] [address] [place] [phone] Rosenda Garza MPAS, P.A.-C. [address] [place] [address] [phone] 02/11/2025 8:00 AM CDT Infusion Department of Oncology in [place], [place] [address] [place] [phone] Skip Amaya M.D., Ph.D. [address] [place] [phone] 02/23/2025 2:15 PM CDT Clinical Communication Virtual Review in [place], [place] 200 [place] [address] 02/25/2025 8:30 AM CDT Lab Department of Oncology in [place], [place] [address] [place] [phone] Skip Amaya M.D., Ph.D. [address] [place] [phone] 02/25/2025 10:40 AM CDT Office Visit Department of Oncology in [address] [phone] Sandy Judge, KASH, C.N.P., M.S. [address] [place] [phone] 02/25/2025 11:30 AM CDT Infusion Department of Oncology in [address] [phone] Skip Amaya M.D., Ph.D. [address] [place] [phone] 03/04/2025 6:00 AM CDT Lab Department of Infusion Therapy in [address] [phone] Skip Amaya M.D., Ph.D. [address] [place] [phone] 03/04/2025 8:10 AM CDT Office Visit Department of Oncology in [place], [place] [address] [place] [phone] Jie Shook P.A.-C. [address] [place] [phone] 03/04/2025 9:30 AM CDT Infusion Department of Oncology in [place], [place] [address] [place] [phone] Skip Amaya M.D., Ph.D. [address] [place] [phone] 03/10/2025 2:15 PM CDT Clinical Communication Virtual Review in [place], [place] 200 [place] [address] 03/11/2025 6:00 AM CDT Lab Department of Laboratory Medicine and Pathology, [facility] in [address] [phone] Skip Amaya M.D., Ph.D. [address] [place] [phone] 03/11/2025 7:20 AM CDT Office Visit Department of Oncology in [address] [phone] Bipin Leal P.A.-C., M.S. [address] [place] [phone] 03/11/2025 8:00 AM CDT Infusion Department of Oncology in [address] [address] Skip Amaya M.D., Ph.D. [address] [place] [phone] 03/24/2025 7:30 AM CDT Appointment Department of Radiology, [facility] in [address] [phone] Skip Amaya M.D., Ph.D. [address] [place] [phone] 03/24/2025 11:20 AM CDT Lab Department of Infusion Therapy in [place], [place] [address] [place] [phone] Skip Amaya M.D., Ph.D. [address] [place] [phone] 03/24/2025 1:30 PM CDT Office Visit Department of Oncology in [place], [place] [address] [place] [phone] Skip Amaya M.D., Ph.D. [address] [place] [phone] 03/25/2025 7:00 AM CDT Infusion Department of Oncology in [place], [place] [address] [place] [phone] Skip Amaya M.D., Ph.D. [address] [place] [phone] 03/29/2025 2:30 PM CDT Clinical Communication Virtual Review in [place], [place] 200 [place] [address] 04/01/2025 6:00 AM CDT Lab Department of Infusion Therapy in [place], [place] [address] [place] [phone] Skip Amaya M.D., Ph.D. [address] [place] [phone] 04/01/2025 8:20 AM CDT Office Visit Department of Oncology in [place], [place] [address] [place] [phone] Precious Hill M.D., Ph.D. [address] [place] [phone] 04/01/2025 9:00 AM CDT Infusion Department of Oncology in [address] [phone] Skip Amaya M.D., Ph.D. [address] [place] [phone] 04/07/2025 11:00 AM CDT Lab Department of Infusion Therapy in [address] [address] Skip Amaya M.D., Ph.D. [address] [place] [phone] 04/07/2025 1:20 PM CDT Office Visit Department of Oncology in [address] [phone] Sandy Judge, KASH, C.N.P., M.S. [address] [place] [address] [phone] 04/08/2025 7:00 AM CDT Infusion Department of Oncology in [address] [address] Skip Amaya M.D., Ph.D. [address] [place] [phone] 04/21/2025 7:15 AM CDT Clinical Communication Virtual Review in [address] [phone] 04/22/2025 7:20 AM CDT Lab Department of Infusion Therapy in [address] [phone] Skip Amaya M.D., Ph.D. [address] [place] [phone] 04/22/2025 9:20 AM CDT Office Visit Department of Oncology in [place], [place] [address] [place] [phone] Sandy Judge APRN, C.N.P., M.S. [address] [place] [phone] 04/22/2025 10:30 AM CDT Infusion Department of Oncology in [place], [place] [address] [place] [phone] Skip Amaya M.D., Ph.D. [address] [place] [phone] 04/29/2025 11:15 AM CDT Lab Department of Oncology in [place], [place] [address] [place] [phone] Skip Amaya M.D., Ph.D. [address] [place] [phone] 04/29/2025 1:20 PM CDT Office Visit Department of Oncology in [place], [place] [address] [place] [phone] Sandy Judge APRN, C.N.P., M.S. [address] [place] [phone] 04/29/2025 2:00 PM CDT Infusion Department of Oncology in [address] [phone] Skip Amaya M.D., Ph.D. [address] [place] [phone] documented as of this encounter Goals Goal [...] MAR Action Action Date Dose Rate Site gemcitabine 2,200 mg in NaCl 0.9% 332.86 mL IVPB (Gemzar) 2,200 mg (rounded from 2,190 mg = 1,000 mg/m2 2.19 m2 Treatment Plan BSA from Measured weight), intravenous, at 666 mL/hr, Administer over 30 Minutes, Once, On Fri01/28/25 at 1015, For 1 dose, Administer after PACLitaxel PROTEIN BOUND.Indications:Malignant Neoplasm Of Pancreas Tail (HCC) New Bag 01/28/2025 11:15 AM CDT 2,200 mg 666 mL/hr heparin flush 500 Units 500 Units, intra-catheter, As needed, line care, Starting on Fri01/28/25 at 0746, When IVAD accessed and not infusing: When no infusion to maintain patency flush every 7 days following NaCL flush. 5 mL (500 units) of Heparin 100 units/mL to each port/lumen. When IVAD not accessed or infusing: When no infusion to maintain patency flush every 28 days following NaCL flush. 5 mL (500 units) of Heparin 100 units/mL to each port/lumen.Indications:Malig nant Neoplasm Of Pancreas Tail (HCC) Given 01/28/2025 11:46 AM CDT 500 Units ondansetron (PF) injection 8 mg (Zofran) 8 mg, intravenous, Once, On Fri01/28/25 at 0753, For 1 doseIndications:Malignant Neoplasm Of Pancreas Tail (HCC) Given 01/28/2025 8:11 AM CDT 8 mg PROTEIN-BOUND PACLItaxel (Abraxane) IVPB 300 mg 60 mL 300 mg (rounded from 273.75 mg = 125 mg/m2 2.19 m2 Treatment Plan BSA from Measured weight), intravenous, at 120 mL/hr, Administer over 30 Minutes, Once, On Fri01/28/25 at 0945, For 1 dose, Administer after 60 min post quemliclustat or placebo wait period. Administer over 30 ( 5) minutes. Chemotherapy agent has a short stability. Please notify pharmacy when patient is ready to receive drug.Indications:Malignant Neoplasm Of Pancreas Tail (HCC) New Bag 01/28/2025 10:29 AM CDT 300 mg 120 mL/hr Research IRB [id number] quemliclustat or placebo 100 mg in NaCl 0.9% 100 mL IVPB ([id number]) 100 mg, intravenous, at 200 mL/hr, Administer over 30 Minutes, Once, On Fri01/28/25 at 0815, For 1 dose, Administer over a 30 ( 5) minutes followed by a 60 minute wait period before PACLitaxel PROTEIN BOUND and then gemcitabine. Full set of vital signs within 60 minutes of infusion and 30 ( 10) minutes post infusion. Administer via 0.2 or 0.22 micron filter.Indications:Malignant Neoplasm Of Pancreas Tail (HCC) New Bag 01/28/2025 9:27 AM CDT 100 mg 200 mL/hr sodium chloride 0.9 % injection 10-20 mL 10-20 mL, intra-catheter, As needed, line care, Starting on Fri01/28/25 at 0746, When IVAD accessed and infusing: Flush prior to and following infusion, between multiple consecutive infusions. 10 mL to each port/lumen.Indications:Natasha nant Neoplasm Of Pancreas Tail (HCC) Given 01/28/2025 11:46 AM CDT 10 mL Given 01/28/2025 9:56 AM CDT 20 mL documented in this encounter Additional Health Concerns Active Problems Noted Date Diagnosed Date Autogenerated Problem 11/16/2024 Infection Onset Date Last Indicated Resolved Time Protective Environment 01/28/2025 01/28/2025 Assessment Noted Time PHQ-9 Depression Total Score: 7 01/12/20 9:53 AM CDT documented as of this encounter Care Teams Barley Steeper Relationship Specialty Start Date End Date Elsewhere, Pcp PCP - General Internal Medicine 09/09/23 documented as of this encounter
--- OUTSIDE RECORDS SUMMARY | 2025-02-04 07:00 | XMS_ITS | Encounter Summary ---
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 [address] [place] [phone] Phone: tel: fax: Department of Oncology in [place], [place] [address] [place] [phone] Phone: tel: Referral ID Status Reason Start Date Expiration Date V isits Requested Visits Authorized [id number] Authorized 01/21/2025 01/21/2027 99 99 Encounter Details Date Type Department Care Team (Late st Contact Info) Description 02/04/2025 7:00 AM CDT Lab Department of Infusion Therapy in [place], [place] [address] [place] [address] [phone] Skip Amaya M.D., Ph.D. 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 Alcohol Use Standard Drinks/Week Comments Not Currently 1 (1 standard drink = 0.6 oz pur e alcohol) 0-1 drink per week [facility] Utilities Answer Date Recorded In the past [...] Master's degree (e.g., MA, MS, Katelyn, MEd, SIGNAL SUPERVISOR, KELLEE) 01/05/2025 Sex and Gender Information Value Date Recorded Sex Assigned at Male 09/10/2023 7:48 AM COMPUTER SYSTEMS SUPPORT SPECIALIST Legal Sex Male 10:11 PM COMPUTER SYSTEMS SUPPORT SPECIALIST Gender Identity Male 09/10/2023 7:48 AM COMPUTER SYSTEMS SUPPORT SPECIALIST Sexual Orientation Straight 09/10/2023 7: 48 AM COMPUTER SYSTEMS SUPPORT SPECIALIST documented as of this encounter Plan of Treatment Upcoming Encounters Date Type Department Care Team (Latest Contact Info) Description 02/08/2025 2:15 PM CDT Clinical Communication Virtual Review in [place], [place] [address] [place] [phone] 02/09/2025 9:30 AM CDT Telemedicine Department of Oncology in [address] [phone] Jesica Wasserman M.B., B.Ch. [address] [place] [address] Cecily Nash L.I.C.S.W. [address] [place] [address] 02/10/2025 12:00 PM CDT Lab Department of Infusion Therapy in [place], [place] [address] [place] [phone] Skip Amaya M.D., Ph.D. [address] [place] [phone] 02/10/2025 2:30 PM CDT Office Visit Department of Oncology in [place], [place] [address] [place] [phone] Rosenda Garza, KRISHNAS, P.A.-C. [address] [place] [phone] 02/11/2025 8:00 AM CDT Infusion Department of Oncology in [place], [place] [address] [place] [phone] Skip Amaya M.D., Ph.D. [address] [place] [phone] 02/23/2025 2:15 PM CDT Clinical Communication Virtual Review in [place], [place] 200 [place] [address] 02/25/2025 8:30 AM CDT Lab Department of Oncology in [place], [place] [address] [place] [phone] Skip Amaya M.D., Ph.D. [address] [place] [phone] 02/25/2025 10:40 AM CDT Office Visit Department of Oncology in [place], [place] [address] [place] [phone] Sandy Judge APRN, C.N.P., M.S. [address] [place] [phone] 02/25/2025 11:30 AM CDT Infusion Department of Oncology in [place], [place] [address] [place] [phone] Skip Amaya M.D., Ph.D. [address] [place] [phone] 03/04/2025 6:00 AM CDT Lab Department of Infusion Therapy in [address] [phone] Skip Amaya M.D., Ph.D. [address] [place] [phone] 03/04/2025 8:10 AM CDT Office Visit Department of Oncology in [place], [place] [address] [place] [phone] Jie Shook P.A.-C. [address] [place] [phone] 03/04/2025 9:30 AM CDT Infusion Department of Oncology in [place], [place] [address] [place] [phone] Skip Amaya M.D., Ph.D. [address] [place] [phone] 03/10/2025 2:15 PM CDT Clinical Communication Virtual Review in [place], [place] 200 [place] [address] 03/11/2025 6:00 AM CDT Lab Department of Laboratory Medicine and Pathology, [place], in [place], [place] [address] [place] [phone] Skip Amaya M.D., Ph.D. [address] [place] [phone] 03/11/2025 7:20 AM CDT Office Visit Department of Oncology in [place], [place] [address] [place] [phone] Bipin Leal P.A.-C., M.S. [address] [place] [phone] 03/11/2025 8:00 AM CDT Infusion Department of Oncology in [place], [place] [address] [place] [phone] Skip Amaya M.D., Ph.D. [address] [place] [phone] 03/24/2025 7:30 AM CDT Appointment Department of Radiology, [facility], in [place], [place] [address] [place] [phone] Skip Amaya M.D., Ph.D. [address] [place] [phone] 03/24/2025 11:20 AM CDT Lab Department of Infusion Therapy in [address] [phone] Skip Amaya M.D., Ph.D. [address] [place] [phone] 03/24/2025 1:30 PM CDT Office Visit Department of Oncology in [place], [place] [address] [place] [phone] Skip Amaya M.D., Ph.D. [address] [place] [phone] 03/25/2025 7:00 AM CDT Infusion Department of Oncology in [place], [place] [address] [place] [phone] Skip Amaya M.D., Ph.D. [address] [place] [phone] 03/29/2025 2:30 PM CDT Clinical Communication Virtual Review in [place], [place] 200 [place] [address] 04/01/2025 6:00 AM CDT Lab Department of Infusion Therapy in [place], [place] [address] [place] [phone] Skip Amaya M.D., Ph.D. [address] [place] [phone] 04/01/2025 8:20 AM CDT Office Visit Department of Oncology in [address] [phone] Precious Hill M.D., Ph.D. [address] [place] [phone] 04/01/2025 9:00 AM CDT Infusion Department of Oncology in [place], [place] [address] [place] [phone] Skip Amaya M.D., Ph.D. [address] [place] [phone] 04/07/2025 11:00 AM CDT Lab Department of Infusion Therapy in [address] [phone] Skip Amaya M.D., Ph.D. [address] [place] [phone] 04/07/2025 1:20 PM CDT Office Visit Department of Oncology in [place], [place] [address] [place] [phone] Sandy Judge APRN, C.N.P., M.S. [address] [place] [phone] 04/08/2025 7:00 AM CDT Infusion Department of Oncology in [place], [place] [address] [place] [phone] Skip Amaya M.D., Ph.D. [address] [place] [phone] 04/21/2025 7:15 AM CDT Clinical Communication Virtual Review in [place], [place] 200 [place] [address] 04/22/2025 7:20 AM CDT Lab Department of Infusion Therapy in [place], [place] [address] [place] [phone] Skip Amaya M.D., Ph.D. [address] [place] [phone] 04/22/2025 9:20 AM CDT Office Visit Department of Oncology in [place], [place] [address] [place] [phone] Sandy Judge APRN, C.NYoselin., M.S. [address] [place] [phone] 04/22/2025 10:30 AM CDT Infusion Department of Oncology in [place], [place] [address] [place] [phone] Skip Amaya M.D., Ph.D. [address] [place] [phone] 04/29/2025 11:15 AM CDT Lab Department of Oncology in [place], [place] [address] [place] [phone] Skip Amaya M.D., Ph.D. [address] [place] [phone] 04/29/2025 1:20 PM CDT Office Visit Department of Oncology in [place], [place] [address] [place] [phone] Sandy Judge, KASH, C.N.P., M.S. [address] [place] [phone] 04/29/2025 2:00 PM CDT Infusion Department of Oncology in [place], [place] [address] [place] [phone] Skip Amaya M.D., Ph.D. [address] [place] [phone] documented as of this encounter Goals Goal Patient Goal Type Associated Problems Recent Progress Patient-Stated? Author Autogenerat ed Goal Care Plan Autogenerated Problem No Hedy Lees, R.N. documented as of this encounter Procedures Procedure Name Priority Date/Time Associated Diagnosis Comments PHOSPHORUS (INORGANIC), S Routine 02/04/2025 7:02 AM CDT Malignant Neoplasm Of Pancreas Tail (HCC) MAGNESIUM, S Routine 02/04/2025 7:02 AM CDT Malignant Neoplasm Of Pancreas Tail (HCC) LACTATE DEHYDROGENASE (LD), S Routine 02/04/2025 7:02 AM CDT Malignant Neoplasm Of Pancreas Tail (HCC) COMPREHENSIVE METABOLIC PANEL, S/P Routine 02/04/2025 7:02 AM CDT Malignant Neoplasm Of Pancreas Tail (HCC) CBC WITH DIFFERENTIAL, B Routine 02/04/2025 7:01 AM CDT Malignant Neoplasm Of Pancreas Tail (HCC) documented in this encounter Results * LD (Lactate Dehydrogenase) (02/04/2025 7:02 AM CDT) [facility] LD 139 122 - 222 U/L 02/04/2025 8:10 AM CDT DTL Blood (Blood, Venous) 02/04/2025 7:02 AM CDT 02/04/2025 7:29 AM CDT Skip Amaya M.D., Ph.D. LAB BLOOD NON ADD-ON Fin al Result Performing Organization Address City/[facility]/ZIP Co de Phone Number [facility] [place] [address] 200 [place] [address] * Phosphorus Inorganic (02/04/2025 7:02 AM CDT) [facility] Phosphorus (Inorganic), S 3.1 2.5 - 4.5 mg/dL 02/04/2025 8:01 AM CDT DT Blood (Blood, Venous) 02/04/2025 7:02 AM CDT 02/04/2025 7:17 AM CDT Skip Amaya M.D., Ph.D. LAB BLOOD ADD-ON Final R esult Performing Organization Address City/[facility]/ZIP Co de Phone Number [facility] [place] 200 [place] [address], [facility] 200 [place] [address] * Magnesium (02/04/2025 7:02 AM CDT) [facility] Magnesium, S 2.0 1.7 - 2.3 mg/dL 02/04/2025 8:01 AM CDT DTL Blood (Blood, Venous) 02/04/2025 7:02 AM CDT 02/04/2025 7:17 AM CDT Skip Amaya M.D., Ph.D. LAB BLOOD ADD-ON Final R esult [facility] [address] [place] [address], [place] DTL [facility] [address] [place] [address] * (ABNORMAL) Comprehensive Metabolic Panel (02/04/2025 7:02 AM CDT) [facility] Potassium, S 4.6 3.6 - 5.2 mmol/L 02/04/2025 8:01 AM CDT DTL Sodium, S 140 135 - 145 mmol/L 02/04/2025 8:01 AM CDT DTL Chloride, S 103 98 - 107 mmol/L 02/04/2025 8:01 AM CDT DTL Bicarbonate, S 25 22 - 29 mmol/L 02/04/2025 8:01 AM CDT DTL Anion Gap 12 7 - 15 02/04/2025 8:01 AM CDT DTL BUN (Blood Urea Nitrogen), S 13 8 - 24 mg/dL 02/04/2025 8:01 AM CDT DTL Creatinine 1.30 0.74 - 1.35 mg/dL 02/04/2025 8:01 AM CDT DTL Estimated GFR (eGFR) 59(L) >=60 mL/min/BS A 02/04/2025 8:01 AM CDT DTL Comment: Estimated GFR calculated using the 2020 CKD_EPI creatinine equation. Calcium, Total, S 9.2 8.8 - 10.2 mg/dL 02/04/2025 8:01 AM CDT DTL Glucose, S 101 70 - 140 mg/dL 02/04/2025 8:01 AM CDT DTL Protein, Total, S 6.1(L) 6.3 - 7.9 g/dL 02/04/2025 8:01 AM CDT DTL Albumin, S 3.9 3.5 - 5.0 g/dL 02/04/2025 8:01 AM CDT DTL Aspartate Aminotransferase (AST), S 62(H) 8 - 48 U/L 02/04/2025 8:01 AM CDT DTL Alkaline Phosphatase, S 189(H) 40 - 129 U/L 02/04/2025 8:01 AM CDT DTL Alanine Aminotransferase (ALT), S 66(H) 7 - 55 U/L 02/04/2025 8:01 AM CDT DTL Bilirubin, Total, S 0.6 0.0 - 1.2 mg/dL 02/04/2025 8:01 AM CDT DTL Blood (Blood, Venous) 02/04/2025 7:02 AM CDT 02/04/2025 7:17 AM CDT us Skip Amaya M.D., Ph.D. LAB BLOOD ADD-ON Final R esult [facility] [place] [address] [place] [address], [facility] [address] [place] [address] * (ABNORMAL) CBC with Differential, Blood (02/04/2025 7:01 AM CDT) Hemoglobin 12.6(L) 13.2 - 16.6 g/dL 02/04/2025 7:31 AM CDT DTL Hematocrit 39.9 38.3 - 48.6 % 02/04/2025 7:31 AM CDT DTL Erythrocytes 4.32(L) 4.35 - 5.65 x10(12)/L 02/04/2025 7:31 AM CDT DTL MCV 92.4 78.2 - 97.9 fL 02/04/2025 7:31 AM CDT DTL RBC Distrib Width 13.2 11.8 - 14.5 % 02/04/2025 7:31 AM CDT DTL Platelet Count 133(L) 135 - 317 x10(9)/L 02/04/2025 7:31 AM CDT DTL Leukocytes 6.4 3.4 - 9.6 x10(9)/L 02/04/2025 7:31 AM CDT DTL Neutrophils 4.17 1.56 - 6.45 x10(9)/L 02/04/2025 7:31 AM CDT [facility] Lymphocytes 1.68 0.95 - 3.07 x10(9)/L 02/04/2025 7:31 AM CDT DTL Monocytes 0.27 0.26 - 0.81 x10(9)/L 02/04/2025 7:31 AM CDT DTL Eosinophils 0.24 0.03 - 0.48 x10(9)/L 02/04/2025 7:31 AM CDT DTL Basophils <0.03 0.01 - 0.08 x10(9)/L 02/04/2025 7:31 AM CDT DTL Blood (Blood, Venous) 02/04/2025 7:01 AM CDT 02/04/2025 7:19 AM CDT Skip Amaya M.D., Ph.D. LAB BLOOD ADD-ON Final R esult [facility] [place] [address] [place] [address], [facility] DTL [facility] [address] [place] [address] [facility] [address] [place] [address] documented in this encounter Visit Diagnoses Diagnosis Malignant Neoplasm Of Pancreas Tail (HCC)- Primary documented in this encounter Administered Medications Inactive Administered Medications - up to 3 most recent administrations Medication Order MAR Action Action Date Dose Rate Site heparin flush 500 Units 500 Units, intra-catheter, As needed, line care, Starting on Fri02/04/25 at 0654, When IVAD accessed and not infusing: When [...] t Neoplasm Of Pancreas Tail (HCC) Given 02/04/2025 7:05 AM CDT 500 Units sodium chloride 0.9 % injection 20-40 mL 20-40 mL, intra-catheter, As needed, line care, Starting on Fri02/04/25 at 0654, When IVAD accessed and infusing: Flush prior to blood sampling, post blood transfusion or post blood sampling. 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
--- OUTSIDE RECORDS SUMMARY | 2025-02-04 08:20 | XMS_ITS | Encounter Summary ---
Author Organization [facility] Address [address] [place] [phone] Care Team Providers Care Senior Peoplesoft Developer Name Role Phone Elsewhere, Pcp Primary Care Provider Unavailabl e Reason for Visit * Episode Based Medications (Routine) - Authorized Specialty Diagnoses / Procedures Referred By Contomid t Referred To Contact Diagnoses Malignant Neoplasm Of Pancreas Tail (HCC) Skip Amaya M.D., Ph.D. [address] [place] [phone] Phone: tel: fax: Department of Oncology in [place], [place] [address] [place] [phone] Phone: tel: Referral ID Status Reason Start Date Expiration Date V isits Requested Visits Authorized [id number] Authorized 01/21/2025 01/21/2027 99 99 Encounter Details Date Type Department Care Team (Latest Contact Info) Description 02/04/2025 8:20 AM CDT Office Visit Department of Oncology in [place], [place] [address] [place] [phone] Jag Frye, KASH, C.N.P., D.N.P. [address] [place] [phone] Malignant Neoplasm Of Pancreas Adenocarcinoma (HCC) (Primary Dx); Malignant Neoplasm Of Pancreas Tail (HCC) Social History Tobacco Use Types Packs/Day Years Used Date Smoking Tobacco: Never Passive Smoke Exposure: Past Smokeless Tobacco: Never Passive Exposure Comments:Ch ildhood exposure. Alcohol Use Standard Drinks/Week Comments Not Currently 1 (1 standard drink = 0.6 oz pur e alcohol) 0-1 drink per week [facility] Utilities Answer Date Recorded In [...] your living situation today? I have a [facility] place to live 12/23/2024 Education Answer Date Recorded What is the highest level of school you have completed or the highest degree you have received? Master's degree (e.g., MA, MS, Katelyn, MEd, FIRE PRODUCTION OPERATOR, KELLEE) 01/05/2025 Sex and Gender Information Value Date Recorded Sex Assigned at Male 09/10/2023 7:48 AM PLANT QUALITY MANAGER Legal Sex Male 10:11 PM PLANT QUALITY MANAGER Gender Identity Male 09/10/2023 7:48 AM PLANT QUALITY MANAGER Sexual Orientation Straight 09/10/2023 7: 48 AM PLANT QUALITY MANAGER documented as of this encounter Last Filed Vital Signs Vital Sign Reading Time Taken Comments Blood Pressure 131/79 02/04/2025 8:03 AM CDT Pulse 93 02/04/2025 8:03 AM CDT Temperature 36.3 C (97.3 F) 02/04/2025 8:03 AM CDT Respiratory Rate 17 02/04/2025 8:03 AM CDT Oxygen Saturation 95% 02/04/2025 8:03 AM CDT Inhaled Oxygen Concentration - - Weight 94 kg (207 lb 3.7 oz) 02/04/2025 8:03 AM CDT Height 181 cm (5' 11.26) 02/04/2025 8:03 AM CDT Body Mass Index 28.69 02/04/2025 8:03 AM CDT documented in this encounter Progress Notes * Jag Frye, KASH, C.N.P., D.N.P. - 02/04/2025 8:20 AM CDT SUBJECTIVE REQUESTING PROVIDER Skip Amaya M.D., Ph.D. [address] [place] [phone] LOCAL ONCOLOGIST No care sales floor team member to display REASON FOR CONSULT Noel Mata is a 69 y.o. male who presents for evaluation of pancreas cancer HISTORY OF PRESENT ILLNESS Oncology History oncology history The patient verbally consented to an audio recording of their visit to assist with the completion of documentation. History of Present Illness Mr. Noel Mata is a 69 year old male with metastatic pancreatic adenocarcinoma who presents for toxicity assessment during cycle one, day eight of chemotherapy. He is accompanied by his . He has experienced fatigue since cycle one, day two, peaking at grade two on cycle two, day two, when he spent most of the day in bed. The fatigue improved over the following days, and he felt back to normal in the last three days. He experienced fevers over the past week, with the highest temperature recorded at 101.8??F. He visited the emergency room and managed the fever with 1 gram of Tylenol every six hours for 24 hours. The fever resolved by cycle one, day three. He had slight nausea and vomiting, which he managed with Compazine and Zofran. He also experienced dry heaving and abdominal pain, which improved after receiving IV fluids and fentanyl. On cycle one, day two, he had slight diarrhea, which he treated with Imodium, resulting in no bowelmovements for two days. He then took Miralax, which normalized his bowel movements. He reports baseline muscle aches and generalized pain, for which he uses oxycodone effectively. He also experienced insomnia over the past few days, feeling 'energized and excited about feeling better.' He has been using marijuana to help with abdominal pain, noting it helps the most. He has tried gummies in the past but found them ineffective. No chest pain or shortness of breath. Medications and allergies reviewed. MEDICAL HISTORY Review SURGICAL HISTORY Surgical History[1] REVIEW OF SYSTEMS A complete ROS was reviewed and negative except as noted in the HPI. OBJECTIVE BP 131/79 (BP Location: Right arm, Patient Position: Sitting, Cuff Size: Large) Pulse 93 Temp 36.3 ??C (Tympanic) Resp 17 Ht 181 cm Wt 94 kg SpO2 95% BMI 28.69 kg/m?? PHYSICAL EXAMINATION General: Patient is alert and conversant, in no acute distress. Ambulates on and off the exam tablewithout difficulty. Skin: No rashes or lesions noted. No jaundice. Eyes: no scleral icterus. ENT: Moist oral mucosa, no mucositis or oral lesions noted. Abdomen: Soft, non-tender, non-distended, no ascites or hepatosplenomegaly noted. Extremities: No lower extremity edema. Physical Exam LABORATORY DATA Lab data reviewed. RADIOLOGICAL DATA ASSESSMENT / PLAN #1 Malignant Neoplasm Of Pancreas Adenocarcinoma (HCC) Cancer Staging Malignant Neoplasm Of Pancreas Tail (HCC) Staging form: Exocrine Pancreas, AJCC 8th Edition - Clinical stage from 12/30/2024: Stage IV (pM1) Current Therapy: [facility] PRISM-1 ( Quemliclustat (AB680) or Placebo / PACLitaxel PROTEIN BOUND / Gemcitabine ) Current Disease Status: Not evaluated ECOG Performance Status: 0 Intent of Therapy: Investigational Study Intent to Change Therapy: No Assessment & Plan Metastatic Pancreatic Adenocarcinoma Noel Mata is a 69 y.o. male presents for evaluation prior to cycle 1, day 8, enrolled on clinical trial, PRISM1 with metastatic pancreas adenocarcinoma. He is undergoing gemcitabine treatment and experienced fatigue, fever (peaked at 101.8??F), nausea,vomiting, diarrhea, and abdominal pain during cycle one. Patient presented locally due to fever, which was attributed to gemcitabine and resolved with acetaminophen. Labs are within range of treatment and will proceed with next round of treatment. Encouraged patient to call for additional, acute concerns or if he spikes a repeat fever. Patient using locally sourced cannabis to help with abdominal pain and appetite stimulation and will certify him for medical cannabis. I informed patient that I will register them through the [place] [facility], and will receive an e-mail once they've been registered with instructions regarding next steps. [place] medical cannabis dispensaries are backed by licensed pharmacists who are knowledgeable in regards to products. Products range in cost from $25-$100+. I recommended starting low and increasing slowly as needed. Initiate with a 1:1 ratio of CBD:THC or a 2:1 ratio of CBD: THC and to start at 2.5 mg of both increasing by 2.5 mg until symptom relief is achieved. If negative side effects such as dry mouth, hallucinations, paranoia are occurring at dose needed to achieve symptom relief, recommend switching to a4:1 ratio of CBD:THC. Discussed different formulations including edibles, pills, tinctures, and vaporizers. I shared edibles and pills have a slower onset of 1-3 hours and last for 6-12 hours and are, therefore, useful for chronic pain, anxiety, and difficulty staying asleep. Tinctures have a faster onset of 15-60 minutes and last 4-6 hours and are, therefore, useful for falling asleep. Vaporizers have the fastest onset of 0-15 minutes and last 2-4 hours and are, therefore, useful for nausea and acute panic. The following is an excellent review article regarding medical cannabis: Cannabis Use in Patients With Cancer: A Clinical Review [facility] ([email or web address].org). Patient in agreeance with the plan and opportunities for questions provided. ADMINISTRATIVE BILLING I personally spent 40 minutes in care of the patient today. Time includes both non face to face andface to face patient care. [1] Past Surgical History: Procedure Laterality Date ANGIOGRAM APPLICATION STEREOTACTIC HEAD FRAME N/A 11/17/2023 Procedure: APPLICATION STEREOTACTIC HEAD FRAME.; Surgeon: Kwame Whittaker M.D., Ph.D.; Location: [facility] OR CATARACT EXTRACTION Bilateral 2023 CORONARY STENT PLACEMENT JOINT REPLACEMENT PLACEMENT NEUROSTIMULATOR - INFRACLAVICULAR SPACE Left 11/17/2023 Procedure: PLACEMENT NEUROSTIMULATOR - INFRACLAVICULAR SPACE.; Surgeon: Kwame Whittaker M.D., Ph.D.; Location: [facility] PLACEMENT NEUROSTIMULATOR DEEP BRAIN Bilateral 11/17/2023 Procedure: Placement of DBS electrodes - Bilateral VIM, Hameed.; Surgeon: Kwame Whittaker M.D., Ph.D.; Location: [facility] OR TONSILLECTOMY VASECTOMY documented in this encounter Plan of Treatment Upcoming Encounters Date Type Department Care Team (Latest Contact Info) Description 02/08/2025 2:15 PM CDT Clinical Communication Virtual Review in [place], [place] 200 [place] [phone] 02/09/2025 9:30 AM CDT Telemedicine Department of Oncology in [address] [phone] Jesica Wasserman M.B., B.Ch. [address] [place] [phone] Cecily Nash L.I.C.SJustynWJustyn [address] [place] [phone] 02/10/2025 12:00 PM CDT Lab Department of Infusion Therapy in [address] [phone] Skip Amaya M.D., Ph.D. [address] [place] [phone] 02/10/2025 2:30 PM CDT Office Visit Department of Oncology in [address] [phone] Rosenda Garza MPAS, P.A.-C. [address] [place] [phone] 02/11/2025 8:00 AM CDT Infusion Department of Oncology in [address] [phone] Skip Amaya M.D., Ph.D. [address] [place] [phone] 02/23/2025 2:15 PM CDT Clinical Communication Virtual Review in [place], [place] 200 [place] [phone] 02/25/2025 8:30 AM CDT Lab Department of Oncology in [place], [place] [address] [place] [phone] Skip Amaya M.D., Ph.D. [address] [place] [phone] 02/25/2025 10:40 AM CDT Office Visit Department of Oncology in [address] [phone] Sandy Judge APRN, C.N.P., M.S. [address] [place] [phone] 02/25/2025 11:30 AM CDT Infusion Department of Oncology in [address] [phone] Skip Amaya M.D., Ph.D. [address] [place] [phone] 03/04/2025 6:00 AM CDT Lab Department of Infusion Therapy in [address] [phone] Skip Amaya M.D., Ph.D. [address] [place] [phone] 03/04/2025 8:10 AM CDT Office Visit Department of Oncology in [address] [phone] Jie Shook P.A.-C. [address] [place] [phone] 03/04/2025 9:30 AM CDT Infusion Department of Oncology in [place], [place] [address] [place] [phone] Skip Amaya M.D., Ph.D. [address] [place] [phone] 03/10/2025 2:15 PM CDT Clinical Communication Virtual Review in [place], [place] 200 [place] [address] 03/11/2025 6:00 AM CDT Lab Department of Laboratory Medicine and Pathology, [facility] in [address] [phone] Skip Amaya M.D., Ph.D. [address] [place] [phone] 03/11/2025 7:20 AM CDT Office Visit Department of Oncology in [address] [phone] Bipin Leal P.A.-C., M.S. [address] [place] [phone] 03/11/2025 8:00 AM CDT Infusion Department of Oncology in [address] [phone] Skip Amaya M.D., Ph.D. [address] [place] [phone] 03/24/2025 7:30 AM CDT Appointment Department of Radiology, [facility] in [address] [phone] Skip Amaya M.D., Ph.D. [address] [place] [phone] 03/24/2025 11:20 AM CDT Lab Department of Infusion Therapy in [place], [place] [address] [place] [phone] Skip Amaya M.D., Ph.D. [address] [place] [phone] 03/24/2025 1:30 PM CDT Office Visit Department of Oncology in [place], [place] [address] [place] [phone] Skip Amaya M.D., Ph.D. [address] [place] [phone] 03/25/2025 7:00 AM CDT Infusion Department of Oncology in [address] [phone] Skip Amaya M.D., Ph.D. [address] [place] [phone] 03/29/2025 2:30 PM CDT Clinical Communication Virtual Review in [address] [phone] 04/01/2025 6:00 AM CDT Lab Department of Infusion Therapy in [address] [phone] Skip Amaya M.D., Ph.D. [address] [place] [phone] 04/01/2025 8:20 AM CDT Office Visit Department of Oncology in [address] [phone] Precious Hill M.D., Ph.D. [address] [place] [phone] 04/01/2025 9:00 AM CDT Infusion Department of Oncology in [place], [place] [address] [place] [phone] Skip Amaya M.D., Ph.D. [address] [place] [phone] 04/07/2025 11:00 AM CDT Lab Department of Infusion Therapy in [place], [place] [address] [place] [phone] Skip Amaya M.D., Ph.D. [address] [place] [phone] 04/07/2025 1:20 PM CDT Office Visit Department of Oncology in [address] [phone] Sandy Judge, KASH, C.N.P., M.S. [address] [place] [phone] 04/08/2025 7:00 AM CDT Infusion Department of Oncology in [address] [phone] Skip Amaya M.D., Ph.D. [address] [place] [phone] 04/21/2025 7:15 AM CDT Clinical Communication Virtual Review in [place], [place] 200 [place] [phone] 04/22/2025 7:20 AM CDT Lab Department of Infusion Therapy in [address] [phone] Skip Amaya M.D., Ph.D. [address] [place] [phone] 04/22/2025 9:20 AM CDT Office Visit Department of Oncology in [address] [phone] Sandy Judge APRN, C.N.Bhavin., M.S. [address] [place] [phone] 04/22/2025 10:30 AM CDT Infusion Department of Oncology in [place], [place] [address] [place] [phone] Skip Amaya M.D., Ph.D. [address] [place] [phone] 04/29/2025 11:15 AM CDT Lab Department of Oncology in [place], [place] [address] [place] [phone] Skip Amaya M.D., Ph.D. [address] [place] [phone] 04/29/2025 1:20 PM CDT Office Visit Department of Oncology in [address] [phone] Sandy Judge APRN, C.N.P., M.S. [address] [place] [phone] 04/29/2025 2:00 PM CDT Infusion Department of Oncology in [address] [phone] Skip Amaya M.D., Ph.D. [address] [place] [phone] documented as of this encounter Goals Goal Patient Goal Type Associated Problems Recent Progress Patient-Stated? Author Autogenerat ed Goal Care Plan Autogenerated Problem Hedy Frankel R.N. documented as of this encounter Visit Diagnoses Diagnosis Malignant Neoplasm Of Pancreas Adenocarcinoma (HCC)- Primary Malignant Neoplasm Of Pancreas Tail (HCC) documented in this encounter Additional Health Concerns Active Problems Noted Date Diagnosed Date Autogenerated Problem 11/16/2024 Infection Onset Date Last Indicated Resolved Time Protective Environment 01/28/2025 01/28/2025 Assessment Noted Time PHQ-9 Depression Total Score: 7 01/12/20 9:53 AM CDT documented as of this encounter Care Teams Senior Peoplesoft Developer Relationship Specialty Start Date End Date Elsewhere, Pcp PCP - General Internal Medicine 09/09/23 documented as of this encounter
--- OUTSIDE RECORDS SUMMARY | 2025-02-04 11:00 | XMS_ITS | Encounter Summary ---
Author Organization [facility] Address [address] [place] [address] Care Team Providers Care Ecommerce Project Manager Name Role Phone Elsewhere, Pcp Primary Care Provider Unavailabl e Reason for Visit * Episode Based Medications (Routine) - Authorized Specialty Diagnoses / Procedures Referred By Contac t Referred To Contact Diagnoses Malignant Neoplasm Of Pancreas Tail (HCC) Skip Amaya M.D., Ph.D. [address] [place] [phone] Phone: tel: fax: Department of Oncology in [place], [place] [address] [place] [phone] Phone: tel: Referral ID Status Reason Start Date Expiration Date V isits Requested Visits Authorized [id number] Authorized 01/21/2025 01/21/2027 99 99 Encounter Details Date Type Department Care Team (Late st Contact Info) Description 02/04/2025 11:00 AM CDT Infusion Department of Oncology in [place], [place] [address] [place] [phone] Skip Amaya M.D., Ph.D. [address] [place] [phone] Malignant Neoplasm Of Pancreas Tail (HCC) (Primary [...] [facility] to live 12/23/2024 Education Answer Date Recorded What is the highest level of school you have completed or the highest degree you have received? Master's degree (e.g., MA, MS, Katelyn, MEd, FINANCE ADMINISTRATOR, KELLEE) 01/05/2025 Sex and Gender Information Value Date Recorded Sex Assigned at Male 09/10/2023 7:48 AM CHEMICAL PROCESSING SUPERVISOR Legal Sex Male 10:11 PM CHEMICAL PROCESSING SUPERVISOR Gender Identity Male 09/10/2023 7:48 AM CHEMICAL PROCESSING SUPERVISOR Sexual Orientation Straight 09/10/2023 7: 48 AM CHEMICAL PROCESSING SUPERVISOR documented as of this encounter Plan of Treatment Upcoming Encounters Date Type Department Care Team (Latest Contact Info) Description 02/08/2025 2:15 PM CDT Clinical Communication Virtual Review in [place], [place] 200 [place] [address] 02/09/2025 9:30 AM CDT Telemedicine Department of Oncology in [address] [phone] Jesica Wasserman M.B., B.Ch. [address] [place] [address] Cecily Nash L.I.C.S.W. [address] [place] [address] 02/10/2025 12:00 PM CDT Lab Department of Infusion Therapy in [place], [place] [address] [place] [phone] Skip Amaya M.D., Ph.D. [address] [place] [phone] 02/10/2025 2:30 PM CDT Office Visit Department of Oncology in [place], [place] [address] [place] [phone] Rosenda Garza, KRISHNAS, P.A.-C. [address] [place] [phone] 02/11/2025 8:00 AM CDT Infusion Department of Oncology in [place], [place] [address] [place] [phone] Skip Amaay M.D., Ph.D. [address] [place] [phone] 02/23/2025 2:15 PM CDT Clinical Communication Virtual Review in [place], [place] 200 [place] [address] 02/25/2025 8:30 AM CDT Lab Department of Oncology in [place], [place] [address] [place] [phone] Skip Amaya M.D., Ph.D. [address] [place] [phone] 02/25/2025 10:40 AM CDT Office Visit Department of Oncology in [place], [place] [address] [place] [phone] Sandy Judge APRN, C.N.P., M.S. [address] [place] [phone] 02/25/2025 11:30 AM CDT Infusion Department of Oncology in [place], [place] [address] [place] [phone] Skip Amaya M.D., Ph.D. [address] [place] [phone] 03/04/2025 6:00 AM CDT Lab Department of Infusion Therapy in [place], [place] [address] [place] [phone] Skip Amaya M.D., Ph.D. [address] [place] [phone] 03/04/2025 8:10 AM CDT Office Visit Department of Oncology in [place], [place] [address] [place] [phone] Jie Shook P.A.-C. [address] [place] [phone] 03/04/2025 9:30 AM CDT Infusion Department of Oncology in [place], [place] [address] [place] [phone] Skip Amaya M.D., Ph.D. [address] [place] [phone] 03/10/2025 2:15 PM CDT Clinical Communication Virtual Review in [place], [place] 200 [place] [address] 03/11/2025 6:00 AM CDT Lab Department of Laboratory Medicine and Pathology, [facility] in [place], [place] [address] [place] [phone] Skip Amaya M.D., Ph.D. [address] [place] [phone] 03/11/2025 7:20 AM CDT Office Visit Department of Oncology in [place], [place] [address] [place] [phone] Bipin Leal P.A.-C., M.S. [address] [place] [phone] 03/11/2025 8:00 AM CDT Infusion Department of Oncology in [place], [place] [address] [place] [phone] Skip Amaya M.D., Ph.D. [address] [place] [phone] 03/24/2025 7:30 AM CDT Appointment Department of Radiology, [facility], in [place], [place] [address] [place] [phone] Skip Amaya M.D., Ph.D. [address] [place] [phone] 03/24/2025 11:20 AM CDT Lab Department of Infusion Therapy in [address] [phone] Skip Amaya M.D., Ph.D. [address] [place] [phone] 03/24/2025 1:30 PM CDT Office Visit Department of Oncology in [place], [place] [address] [place] [phone] Skip Amaya M.D., Ph.D. [address] [place] [phone] 03/25/2025 7:00 AM CDT Infusion Department of Oncology in [place], [place] [address] [place] [phone] Skip Amaya M.D., Ph.D. [address] [place] [phone] 03/29/2025 2:30 PM CDT Clinical Communication Virtual Review in [place], [place] 200 [place] [address] 04/01/2025 6:00 AM CDT Lab Department of Infusion Therapy in [address] [phone] Skip Amaya M.D., Ph.D. [address] [place] [phone] 04/01/2025 8:20 AM CDT Office Visit Department of Oncology in [address] [phone] Precious Hill M.D., Ph.D. [address] [place] [phone] 04/01/2025 9:00 AM CDT Infusion Department of Oncology in [address] [phone] Skip Amaya M.D., Ph.D. [address] [place] [phone] 04/07/2025 11:00 AM CDT Lab Department of Infusion Therapy in [address] [address] Skip Amaya M.D., Ph.D. [address] [place] [phone] 04/07/2025 1:20 PM CDT Office Visit Department of Oncology in [place], [place] [address] [place] [phone] Sandy Judge APRN, C.N.P., M.S. [address] [place] [phone] 04/08/2025 7:00 AM CDT Infusion Department of Oncology in [place], [place] [address] [place] [phone] Skip Amaya M.D., Ph.D. [address] [place] [phone] 04/21/2025 7:15 AM CDT Clinical Communication Virtual Review in [place], [place] 200 [place] [address] 04/22/2025 7:20 AM CDT Lab Department of Infusion Therapy in [place], [place] [address] [place] [phone] Skip Amaya M.D., Ph.D. [address] [place] [phone] 04/22/2025 9:20 AM CDT Office Visit Department of Oncology in [place], [place] [address] [place] [phone] Sandy Judge APRN, C.NYoselin., M.S. [address] [place] [phone] 04/22/2025 10:30 AM CDT Infusion Department of Oncology in [place], [place] [address] [place] [phone] Skip Amaya M.D., Ph.D. [address] [place] [phone] 04/29/2025 11:15 AM CDT Lab Department of Oncology in [place], [place] [address] [place] [phone] Skip Amaya M.D., Ph.D. [address] [place] [phone] 04/29/2025 1:20 PM CDT Office Visit Department of Oncology in [place], [place] [address] [place] [phone] Sandy Judge, KASH, C.N.P., M.S. [address] [place] [phone] 04/29/2025 2:00 PM CDT Infusion Department of Oncology in [place], [place] [address] [place] [phone] Skip Amaya M.D., Ph.D. [address] [place] [phone] documented as of this encounter Goals Goal [...] mL/hr, Administer over 30 Minutes, Once, On Fri02/04/25 at 1215, For 1 dose, Administer after PACLitaxel PROTEIN BOUND.Indications:Malignant Neoplasm Of Pancreas Tail (HCC) New Bag 02/04/2025 12:33 PM CDT 2,200 mg 666 mL/hr heparin flush 500 Units 500 Units, intra-catheter, As needed, line care, Starting on Fri02/04/25 at 1117, When IVAD accessed and not infusing: When [...] nant Neoplasm Of Pancreas Tail (HCC) Given 02/04/2025 1:03 PM CDT 500 Units ondansetron (PF) injection 8 mg (Zofran) 8 mg, intravenous, Once, On Fri02/04/25 at 1145, For 1 doseIndications:Malignant Neoplasm Of Pancreas Tail (HCC) Given 02/04/2025 11:23 AM CDT 8 mg PROTEIN-BOUND PACLItaxel (Abraxane) IVPB 300 mg 60 mL 300 mg (rounded from 273.75 mg = 125 mg/m2 2.19 m2 Treatment Plan BSA from Measured weight), intravenous, at 120 mL/hr, Administer over 30 Minutes, Once, On Fri02/04/25 at 1145, For 1 dose, Administer over 30 ( 5) minutes. Chemotherapy agent has a short stability. Please notify pharmacy when patient is ready to receive drug.Indications:Malignant Neoplasm Of Pancreas Tail (HCC) New Bag 02/04/2025 11:52 AM CDT 300 mg 120 mL/hr sodium chloride 0.9 % injection 10-20 mL 10-20 mL, intra-catheter, As needed, line care, Starting on Fri02/04/25 at 1117, When IVAD accessed and not infusing: When no infusion to maintain patency flush every 7 days followed by heparin flush. 10 mL to each port/lumen. When IVAD not accessed or infusing: When no infusion to maintain patency flush every 28 days followed by heparin flush. 10 mL to each port/lumen.Indications:Malig nant Neoplasm Of Pancreas Tail (HCC) Given 02/04/2025 1:03 PM CDT 10 mL documented in this encounter Additional Health Concerns Active Problems Noted Date Diagnosed Date Autogenerated Problem 11/16/2024 Infection Onset Date Last Indicated Resolved Time Protective Environment 01/28/2025 01/28/2025 Assessment Noted Time PHQ-9 Depression Total Score: 7 07/08/20 25 9:53 AM CDT documented as of this encounter Care Teams Ecommerce Project Manager Relationship Specialty Start Date End Date Elsewhere, Pcp PCP - General Internal Medicine 09/09/23 documented as of this encounter
--- OUTSIDE RECORDS SUMMARY | 2025-02-06 12:43 | XMS_ITS | Encounter Summary ---
Author Organization [facility] Address [address] [place] [address] Care Team Providers Care Safety Companion Name Role Phone Elsewhere, Pcp Primary Care Provider Unavailabl e Encounter Details Date Type Department Care Team (Latest Contact Info) Description 12/29/2024 Results Follow-Up Division of Gastroenterology in [place], [place] [address] [place] [address] Drea Means APRN, C.N.P., D.N.P. [address] [place] [phone] CBC with Differential, Blood, Comprehensive Metabolic Panel, Bilirubin, Direct, Additional followed-up results: 4 Social History Tobacco Use Types Packs/Day Years Used Date Smoking Tobacco: Never Passive Smoke Exposure: Past Smokeless Tobacco: Never Passive Exposure Comments: ildhood exposure. Alcohol Use Standard Drinks/Week Comments Not Currently 1 (1 standard drink = 0.6 oz pur e alcohol) 0-1 drink per week [facility] Utilities Answer Date Recorded In the past 12 months has [employer] electric, gas, oil, or water company threatened [...] [facility] 12/23/2024 Sex and Gender Information Value Date Recorded Sex Assigned at Male 09/10/2023 7:48 AM SENIOR TECHNOLOGIST Legal Sex Male 10:11 PM SENIOR TECHNOLOGIST Gender Identity Male 09/10/2023 7:48 AM SENIOR TECHNOLOGIST Sexual Orientation Straight 09/10/2023 7: 48 AM SENIOR TECHNOLOGIST documented as of this encounter Plan of Treatment Upcoming Encounters Date Type Department Care Team (Latest Contact Info) Description 02/08/2025 2:15 PM CDT Clinical Communication Virtual Review in [place], [place] 200 [place] [address] 02/09/2025 9:30 AM CDT Telemedicine Department of Oncology in [address] [phone] Jesica Wasserman M.B., B.Ch. [address] [place] [phone] Cecily Nash L.I.C.S.W. [address] [place] [phone] 02/10/2025 12:00 PM CDT Lab Department of Infusion Therapy in [place], [place] [address] [place] [phone] Skip Amaya M.D., Ph.D. [address] [place] [phone] 02/10/2025 2:30 PM CDT Office Visit Department of Oncology in [place], [place] [address] [place] [phone] Rosenda Garza MPAS, P.A.-C. [address] [place] [phone] 02/11/2025 8:00 AM CDT Infusion Department of Oncology in [place], [place] [address] [place] [phone] Skip Amaya M.D., Ph.D. [address] [place] [phone] 02/23/2025 2:15 PM CDT Clinical Communication Virtual Review in [place], [place] 200 [place] [address] 02/25/2025 8:30 AM CDT Lab Department of Oncology in [place], [place] [address] [place] [phone] Skip Amaya M.D., Ph.D. [address] [place] [phone] 02/25/2025 10:40 AM CDT Office Visit Department of Oncology in [place], [place] [address] [place] [phone] Sandy Judge, KASH, C.N.P., M.S. [address] [place] [phone] 02/25/2025 11:30 AM CDT Infusion Department of Oncology in [place], [place] [address] [place] [phone] Skip Amaya M.D., Ph.D. [address] [place] [phone] 03/04/2025 6:00 AM CDT Lab Department of Infusion Therapy in [place], [place] [address] [place] [phone] Skip Amaya M.D., Ph.D. [address] [place] [phone] 03/04/2025 8:10 AM CDT Office Visit Department of Oncology in [place], [place] [address] [place] [phone] Jie Shook P.A.-C. [address] [place] [phone] 03/04/2025 9:30 AM CDT Infusion Department of Oncology in [place], [place] [address] [place] [phone] Skip Amaya M.D., Ph.D. [address] [place] [phone] 03/10/2025 2:15 PM CDT Clinical Communication Virtual Review in [place], [place] 200 [place] [address] 03/11/2025 6:00 AM CDT Lab Department of Laboratory Medicine and Pathology, [facility], in [address] [phone] Skip Amaya M.D., Ph.D. [address] [place] [phone] 03/11/2025 7:20 AM CDT Office Visit Department of Oncology in [address] [phone] Bpiin Leal P.A.-C., M.S. [address] [place] [phone] 03/11/2025 8:00 AM CDT Infusion Department of Oncology in [address] [phone] Skip Amaya M.D., Ph.D. [address] [place] [phone] 03/24/2025 7:30 AM CDT Appointment Department of Radiology, [facility], in [place], [place] [address] [place] [phone] Skip Amaya M.D., Ph.D. [address] [place] [phone] 03/24/2025 11:20 AM CDT Lab Department of Infusion Therapy in [place], [place] [address] [place] [phone] Skip Amaya M.D., Ph.D. [address] [place] [phone] 03/24/2025 1:30 PM CDT Office Visit Department of Oncology in [place], [place] [address] [place] [phone] Skip Amaya M.D., Ph.D. [address] [place] [phone] 03/25/2025 7:00 AM CDT Infusion Department of Oncology in [place], [place] [address] [place] [phone] Skip Amaya M.D., Ph.D. [address] [place] [phone] 03/29/2025 2:30 PM CDT Clinical Communication Virtual Review in [place], [place] 200 [place] [address] 04/01/2025 6:00 AM CDT Lab Department of Infusion Therapy in [place], [place] [address] [place] [phone] Skip Amaya M.D., Ph.D. [address] [place] [phone] 04/01/2025 8:20 AM CDT Office Visit Department of Oncology in [address] [phone] Precious Hill M.D., Ph.D. [address] [place] [phone] 04/01/2025 9:00 AM CDT Infusion Department of Oncology in [address] [address] Skip Amaya M.D., Ph.D. [address] [place] [phone] 04/07/2025 11:00 AM CDT Lab Department of Infusion Therapy in [address] [phone] Skip Amaya M.D., Ph.D. [address] [place] [phone] 04/07/2025 1:20 PM CDT Office Visit Department of Oncology in [address] [phone] Sandy Judge, KASH, C.N.P., M.S. [address] [place] [phone] 04/08/2025 7:00 AM CDT Infusion Department of Oncology in [address] [phone] Skip Amaya M.D., Ph.D. [address] [place] [phone] 04/21/2025 7:15 AM CDT Clinical Communication Virtual Review in [place], [place] 200 [place] [address] 04/22/2025 7:20 AM CDT Lab Department of Infusion Therapy in [place], [place] [address] [place] [phone] Skip Amaya M.D., Ph.D. [address] [place] [phone] 04/22/2025 9:20 AM CDT Office Visit Department of Oncology in [place], [place] [address] [place] [phone] Sandy Judge APRN, C.N.P., M.S. [address] [place] [phone] 04/22/2025 10:30 AM CDT Infusion Department of Oncology in [place], [place] [address] [place] [phone] Skip Amaya M.D., Ph.D. [address] [place] [phone] 04/29/2025 11:15 AM CDT Lab Department of Oncology in [address] [address] Skip Amaya M.D., Ph.D. [address] [place] [phone] 04/29/2025 1:20 PM CDT Office Visit Department of Oncology in [place], [place] [address] [place] [phone] Sandy Judge APRN, C.N.P., M.S. [address] [place] [phone] 04/29/2025 2:00 PM CDT Infusion Department of Oncology in [place], [place] [address] [place] [phone] Skip Amaya M.D., Ph.D. [address] [place] [address] documented as of this encounter Goals Goal [...] documented as of this encounter Care Teams Safety Companion Relationship Specialty Start Date End Date Elsewhere, Pcp PCP - General Internal Medicine 09/09/23 documented as of this encounter
--- OUTSIDE RECORDS SUMMARY | 2025-02-06 12:43 | XMS_ITS | Clinical Summary ---
Author Organization [facility] Address [address] [place] [address] Care Team Providers Care American Indian Studies Professor Name Role Phone Lexie Dale Primary Care Provider Junior Jenkins MD Unavailable [phone] [facility] Allergies Active Allergy Reactions Criticality Noted Date Comments Amoxicillin-Pot Clavulanate GI Upset,Stomach Upset 10/08/2016 Medications cholecalciferol, vitamin D3, 100 mcg (4,000 unit) cap Take by mouth once daily. 0 08/16/19 14 Active aspirin (ECOTRIN) 81 mg enteric coated tabletIndications: Coronary artery disease involving tlingit & haida coronary artery of tlingit & haida heart TAKE 1 TABLET(81 MG) BY MOUTH [...] mg sublingual tabletIndications: Coronary artery disease involving tlingit & haida coronary artery of tlingit & haida heart, unspecified whether angina present Place 1 [...] 75 mg tabletIndications: Coronary artery disease involving tlingit & haida coronary artery of tlingit & haida heart, unspecified whether angina present,Arterioscl erotic heart disease Take 1 Tablet (75 mg) by mouth once daily. 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 07/08/2023 Chest pain [...] Encounters Date Type Department Care Team Description 01/30/2025 Orders Only [facility] Scanner 1 scan: (1-Ord) [facility] CT ABD PELVIS W, 01/30/2025 01/27/2025 Orders Only [facility] Scanner 1 scan: (1-Ord) [facility], MULTIPLE RESULTS, 01/27/2025 01/14/2025 2:00 PM CDT Office Visit [facility] [address] [place] [address] Junior Jenkins MD Follow Up (Follow up [...] ) 01/14/2025 Travel 01/09/2025 Travel 01/06/2025 Telephone [facility] [address] [place] [address] Lexie Dale PA 01/05/2025 Telephone [facility] [address] [place] [address] [facility] Cancer Financial Questions/Services (Financial Navigation review) 01/04/2025 Telephone [facility] [address] [facility] [address] [facility] [address] [place] [phone] Junior Jenkins MD Results (zio) 12/27/2024 Orders Only [facility] [address] [place] [address] Lexie Dale PA <No scans attached> 12/23/2024 2:00 PM CDT Ancillary Procedure [facility] [address] [place] [address] 12/23/2024 Telephone [facility] [address] [place] [address] Marcela Alberto MD Error-please disregard (opened in error) 12/23/2024 Travel 12/23/2024 Telephone [facility] [address] [place] [address] Lexie Dale PA 12/23/2024 Telephone [facility] [address] [place] [address] Marcela Alberto MD Results 12/23/2024 Telephone [facility] [address] [place] [address] [facility] Cancer Referral (Pancreatic adenocarcinoma (HC) [C25.9]/Metastatic cancer to liver (HC) [C78.7]/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]//) 12/21/2024 1:00 PM CDT Ancillary Procedure [facility] [address] [place] [address] 12/21/2024 11:15 AM CDT Ancillary Procedure [facility] [address] [place] [address] 12/21/2024 9:50 AM CDT Office Visit [facility] [address] [place] [address] Marcela Alberto MD Abdominal Pain (abdominal pain for 2 weeks - worsening over the last 4/5 days); Flank Pain (right flank pain started this morning ) 12/21/2024 Travel 12/01/2024 Telephone [facility] [address] [place] [address] Junior Jenkins MD Results (Stress test) 11/30/2024 10:13 AM CDT - 11/30/2024 11:59 PM CDT Hospital Encounter [facility] [address] [place] [address] Junior Jenkins MD Chest discomfort; FELDER (dyspnea on exertion) 11/30/2024 6:48 AM CDT - 11/30/2024 10:12 AM CDT Hospital Encounter [facility] [address] [place] [address] Junior Jenkins MD Chest discomfort; FELDER (dyspnea on exertion) 11/30/2024 Travel 11/26/[address] 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 Gender Identity Not on file Sexual Orientation [...] COVID-19 vaccine series (8 - Pfizer risk 2023- season) 2024 05/10/2024, 04/18/2023, 04/02/2022, Additional history exists Influenza Vaccine (#1) 2025 , 04/18/2023, 04/02/2022, Additional history exists BMI (ht and wt on same day) for age 18+ 01/14/2026 01/14/2025, 07/21/2023, 06/11/2023, Additional history exists Colonoscopy through age 75 12/06/202712/05, 12/05/2017, 12/05/2017, Additional history exists Lipids for age 45-75 02/25/2028 02/24/2023, 02/24/2023, 01/11/2022, Additional history exists Medical Devices Implanted Type Area [employer] Teacher Device Identifier Shelf Expiration Date Model / Serial / Lot Cmnt Bone 20g Simplex P Non Atb Mv - [id number] Implanted:Qty: 1 on 03/20/2016 by Kike Raygoza MD at [facility] Right: Shoulder [employer] [id number] 0# / / [id number] Ancr Sut 2.3mm Iconix 25 W/2 Strand #5 Force Fiber - [id number] Implanted:Qty: 2 on 03/20/2016 by Kike Raygoza MD at [facility] Right: Shoulder [employer] [id number]- 525# / / [id number] Glenoid Szmed 40mm Aeq Perform - [id number] Implanted:Qty: 1 on 03/20/2016 by Kike Raygoza MD at [facility] Right: Shoulder [employer] [id number]# / [id number] / Stem Hum Sz3 Simpliciti Nucleus Tri Fin - [id number] Implanted:Qty: 1 on 03/20/2016 by Kike Raygoza MD at [facility] Right: Shoulder [employer] 10/16/2020 [id number]# / [id number] / Head Hum [id number] Simpliciti - [id number] Implanted:Qty: 1 on 03/20/2016 by Kike Raygoza MD at [facility] Right: Shoulder [employer] [id number]# / [id number] / Explanted Type Area [employer]eral [employer] Teacher Device Identifier Shelf Expiration Date Model / Serial / Lot Pin Shldr [id number] Aequalis Alignment - [id number] Explanted:Qty: 1 on 03/20/[address] 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) Pancreatic adenocarcinoma (HC) AFP TUMOR MARKER SERUM Routine 5 3:33 PM CDT Pancreatic adenocarcinoma (HC) Metastatic [...] 1:20 PM CDT 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 Bones: Unremarkable for age. Procedure Note Charissa Monteiro MD - 12/23/2024 For Patients: As [...] pelvis 12/21/2024, chest CT 02/18/2024, CT abdomen [id number]/21/2022 FINDINGS: Lungs and pleura: Minimally increased right [...] MD @ 12/23/2024 2:37:44 PM (Electronically Signed) Marcela Alberto MD CT Fi nal Result * (ABNORMAL) HEPATIC FUNCTION PANEL (12/23/2024 1:47 PM CDT) PROTEIN, TOTAL 6.7 6.1 - 8.1 g/dL [facility] ALBUMIN 4.3 3.6 - 5.1 g/dL [facility] GLOBULIN 2.4 1.9 - 3.7 g/dL (calc) [...] ALT 22 9 - 46 U/L [facility] Blood BLOOD SPECIMEN / Unknown 12/23/2024 1:47 PM CDT 12/23/2024 1:48 PM CDT Lexie REZA CHEMISTRY Final R esult [facility] [address] [place] [address], [facility] [address] [place] [address] * (ABNORMAL) BASIC METABOLIC PANEL (12/23/2024 1:47 PM CDT) GLUCOSE 100(H) 65 - 99 mg/dL [facility] Comment: Fasting reference interval For someone without known diabetes, a glucose value between 100 and 125 mg/dL is consistent with prediabetes and should be confirmed with a follow-up test. UREA NITROGEN (BUN) 15 7 - 25 mg/dL [facility] CREATININE 1.51(H) 0.70 - 1.28 mg/dL Less[facility]er[facility] EGFR 49(L) > OR = 60 mL/min/1.7 3m2 [facility] BUN/CREATININE RATIO 10 6 - 22 (calc) [facility] odaria Alexandere SODIUM 139 135 - 146 mmol/L [facility] POTASSIUM 4.2 3.5 - 5.3 mmol/L [facility] Baner[facility] CHLORIDE 102 98 - 110 mmol/L [facility] CARBON DIOXIDE 27 20 - 32 mmol/L Less[facility] Baner[facility] ELECTROLYTE BALANCE 10 7 - 17 mmol/L (calc) [facility] Alexandere CALCIUM 9.7 8.6 - 10.3 mg/dL [facility] Blood BLOOD SPECIMEN / Unknown 12/23/2024 1:47 PM CDT 12/23/2024 1:48 PM CDT Lexie REZA CHEMISTRY Final R esult [facility] [address] [place] [address], [facility] [address] [place] [address] * (ABNORMAL) CA 19-9 (12/21/2024 3:33 PM CDT) CA 19-9 15,462(H) <34 U/mL [facility] estrella Baner[facility] Comment: This test was performed [...] OUTS Fi nal Result Performing Organization Address [facility] Co de Phone Number [facility] [address] [place] [address], [place] [phone] [facility] [address] [place] [address] * AFP TUMOR MARKER SERUM (12/21/2024 3:33 PM CDT) ALPHA FETOPROTEIN, TUMOR MARKER 2.7 <6.1 ng/mL [facility] Baner[facility] Comment: This test was performed using the [employer] chemiluminescent method. Values obtained from different assay methods cannot be used interchangeably. AFP levels, regardless of value, should not be interpreted as absolute evidence of the presence or absence of disease. Blood BLOOD SPECIMEN / Unknown 12/21/2024 3:33 PM CDT 12/21/2024 3:34 PM CDT Marcela Alberto MD SEND OUTS Fi nal Result Performing Organization Address [facility] Co de Phone Number [facility] [address] [place] [address], [facility] [address] [place] [address] * CT ABDOMEN PELVIS W (12/21/2024 12:10 [...] result of the Century Cures Act, medical imaging exams and [...] MD @ 12/21/2024 12:35:25 PM (Electronically Signed) Marcela Alberto MD CT Ed ited Result - Final * (ABNORMAL) POCT Creatinine (12/21/2024 11:32 AM CDT) POCT,CREATININ E, ISTAT 1.4(H) 0.6 - 1.3 mg/dL [facility] Blood BLOOD SPECIMEN / Unknown 12/21/2024 11:32 AM CDT 12/21/2024 11:32 AM CDT us Marcela Alberto MD CHEMISTRY Fi nal Result [facility] [address] [place] [address], [facility] [address] [place] [address] * US ABDOMEN LIMITED (12/21/2024 11:03 AM [...] MD @ 12/21/2024 11:10:54 AM (Electronically Signed) us Marcela Alberto MD Ed ited Result - Final * (ABNORMAL) CBC AND DIFFERENTIAL (12/21/2024 10:28 AM CDT) WHITE BLOOD CELL COUNT 11.6(H) 3.8 - 10.8 Thousand/u L [facility] RED BLOOD CELL COUNT 5.09 4.20 - 5.80 Million/uL [facility] HEMOGLOBIN 15.8 13.2 - 17.1 g/dL [facility] HEMATOCRIT 47.6 38.5 - 50.0 % [facility] MCV 93.5 80.0 - 100.0 fL [facility] [...] 10:28 AM CDT 12/21/2024 10:28 AM CDT us Marcela Alberto MD HEMATOLOGY Fi nal Result [facility] [address] [place] [address], [place] [phone] [facility] [address] [place] [address] * LIPASE (12/21/2024 10:28 AM CDT) LIPASE 36 7 - 60 U/L [facility] Blood BLOOD SPECIMEN / Unknown 12/21/2024 10:28 AM CDT 12/21/2024 10:28 AM CDT us Marcela Alberto MD CHEMISTRY Fi nal Result [facility] [address] [place] [address], [facility] [address] [place] [address] * NM CARDIAC MPI STRESS TEST (11/30/2024 9:57 AM CDT) Anatomical Region Laterality Modality HEART Nuclear Medicine 11/30/2024 6:48 AM CDT Narrative 11/30/2024 1:08 PM CDT [address], [place] [address] Main: Myocardial Perfusion Report Rest/Stress 1 Day Single Isotope Gated SPECT imaging with Regadenoson(Lexiscan) stress NOEL MATA ID: [id number] Age: 69 : 1955 Nuclear Tech: ALZ Exam Date: 11/30/2024 06:48 Gender: M RN/Ex. Ham Marker: [place] Height: 72.8 in BSA: 2.22 m [...] / 72 % MPHR: 56 Double Product: [id number] Recovery HR(bpm): 78 Recovery BP(mmHg): 126 / [...] ventricular wall motion. Amara Osborne MD [facility] Accredited Site (Electronically Signed) Final Date: 30 Nov 2024 13:07 ICD-10 Codes: R06.09; R07.89 CC Providers: Dr. Lexie Dale Procedure Note Amara Osborne MBBS - 11/30/[address], [place] [address] Main: Myocardial Perfusion Report Rest/Stress 1 Day Single Isotope Gated SPECT imaging withRegadenoson(Lexiscan) stress NOEL MATA ID: [id number] Age: 69 : 1955 Nuclear Tech: ALZ Exam Date: 11/30/2024 06:48 Gender: M RN/Ex. Ham Marker: [place] Height: 72.8 in BSA: 2.22 m [...] 126 / 72 % MPHR: 56 Double Product:[id number] Recovery HR(bpm): 78 Recovery BP(mmHg): 126 / [...] ventricular wall motion. Amara Osborne MD [facility] Accredited Site (Electronically Signed) Final Date: 30 Nov 2024 13:07 ICD-10 Codes: R06.09; R07.89 CC Providers: Dr. Lexie Dale us Junior Jenkins MD NM Final Result * ZIO PATCH XT - weekly to monthly symptoms. (11/30/2024) 11/30/2024 Kike Flood MD - 12/29/2024 12:00 AM CDT Sinus [...] Signed By Kike Ogden MD us Junior eJnkins MD CARDIAC SERVICES ORD Final R esult * (ABNORMAL) LIPID PANEL W REFLEX MEASURED LDL (02/24/2023 1:20 PM CDT) CHOLESTEROL,TOTAL 148 100 - 199 mg/dL 02/25/2023 1:09 AM T [facility] Comment: Cholesterol, Total Reference Ranges Desirable <200 mg/dL Borderline 200-239 mg/dL High >=240 mg/dL TRIGLYCERIDES 765(H) <150 mg/dL 02/25/2023 1:09 AM CDT [facility] HDL CHOLESTEROL 25(L) >40 mg/dL 3 1:09 AM T [facility] NON-HDL CHOLESTEROL 123 <145 mg/dl 02/25/2023 1:09 AM T [facility] CHOL/HDL RATIO 5.92(H) <4.50 02/25/2023 1:09 AM T [facility] LDL CHOLESTEROL 3 1:09 AM T [facility] Comment:Invalid LDL when Tri g >400. VLDL CHOLESTEROL COMMENT 02/25/2023 1:09 AM T [facility] Comment:Unable to calculate VLDL. PROVIDER ORDERED STATUS RANDOM 02/25/2023 1:09 AM CDT [facility] Blood BLOOD SPECIMEN / Unknown Venipuncture / Unknown 02/24/2023 1:20 PM CDT 02/24/2023 1:22 PM CDT us Lexie Dale PA CHEMISTRY Final R esult [facility] [address] [place] [address], [place] * COLONOSCOPY (12/05/2017 8:58 AM CDT) [...] reponse to care. [facility] and nursing notes for moderate sedation details. Total physician intraservice time was 16 minutes. Jensen Millan MD 12/05/2017 10:30:48 AM This report has been signed electronically. Note Initiated On: 12/05/2017 8:58 AM Procedure Code(s): --- Professional --- 99138, Colonoscopy, flexible; diagnostic, including collection of specimen(s) bybrushing or washing, when performed (separateprocedure) Diagnosis Code(s): --- Professional --- K92.1, Melena (includes Hematochezia) CPT copyright 2017 [employer]. All rights reserved. The codes documented in this report are preliminary and upon social work assistant reviewmay be revised to meet current compliance requirements. Scope In: 10:12:45 AM Scope Withdrawal Time 0 hours 9 minutes 26 seconds Scope Out: 10:26:57 AM Jensen Millan MD PROCEDURE ORD Final Res ult from Last 3 Months or Most Recently Relevant to Health [place] [address] MEDICARE PART B HB ONLY [place] BL[place] MR PB ONLY BL[place] BLUE HB ONLY MEDICARE PART A HB ONLY [place] BLUE MR PB ONLY [place] BLUE HB ONLY MEDICARE PART A HB [...] Comments Code Status Discussion: Discussed Care Teams American Indian Studies Professor Relationship Specialty Start Date End Date Lexie Dale PA [address] [place] [address] PCP - General Family Practice 08/03/13 Junior Jenkins MD [address] [facility] [address] [place] [address] Consulting Physician Cardiovascular Disease 12/20/24 Sonia Treviño RN [address] [place] [address] Nurse Navigator - Oncology Registered Nurse 12/23/24
--- OUTSIDE RECORDS SUMMARY | 2025-02-06 12:44 | XMS_ITS | Encounter Summary ---
Author Organization [facility] Address [address] [place] [address] Care Team Providers Care Pharmacists Name Role Phone Elsewhere, Pcp Primary Care Provider Unavailabl e Reason for Visit * Reason Onset Date Comments Slides returned NOT read 12/29/2024 Encounter Details Date Type Department Care Team (Latest Contact Info) Description 12/29/2024 Clinical Communication Division of Gastroenterology in [place], [place] [address] [place] [address] Prescheduling, Provider Slides returned NOT read Social History Tobacco Use Types Packs/Day Years Used Date Smoking Tobacco: Never Passive Smoke Exposure: Past Smokeless Tobacco: Never Passive Exposure Comments:Ch ildhood exposure. Alcohol Use Standard Drinks/Week Comments Not Currently 1 (1 standard drink = 0.6 oz pur e alcohol) 0-1 drink per week [facility] Utilities Answer Date Recorded In the past 12 months has [employer], gas, oil, or water [employer] threatened to shut off services in your [...] [facility] 12/23/2024 Sex and Gender Information Value Date Recorded Sex Assigned at Male 09/10/2023 7:48 AM COAL DUMPING EQUIPMENT OPERATOR Legal Sex Male 10:11 PM COAL DUMPING EQUIPMENT OPERATOR Gender Identity Male 09/10/2023 7:48 AM COAL DUMPING EQUIPMENT OPERATOR Sexual Orientation Straight 09/10/2023 7: 48 AM COAL DUMPING EQUIPMENT OPERATOR documented as of this encounter Plan of Treatment Upcoming Encounters Date Type Department Care Team (Latest Contact Info) Description 02/08/2025 2:15 PM CDT Clinical Communication Virtual Review in [place], [place] [address] [place] [address] 02/09/2025 9:30 AM CDT Telemedicine Department of Oncology in [address] [phone] Jesica Wasserman M.B., B.Ch. [address] [place] [address] [phone] Cecily Nash, John.I.C.S.W. [address] [place] [address] [phone] 02/10/2025 12:00 PM CDT Lab Department of Infusion Therapy in [place], [place] [address] [place] [phone] Skip Amaya M.D., Ph.D. [address] [place] [address] [phone] 02/10/2025 2:30 PM CDT Office Visit Department of Oncology in [place], [place] [address] [place] [address] [phone] Rosenda Garza MPAS, P.A.-C. [address] [place] [phone] 02/11/2025 8:00 AM CDT Infusion Department of Oncology in [place], [place] [address] [place] [phone] Skip Amaya M.D., Ph.D. [address] [place] [phone] 02/23/2025 2:15 PM CDT Clinical Communication Virtual Review in [place], [place] 200 [place] [address] 02/25/2025 8:30 AM CDT Lab Department of Oncology in [place], [place] [address] [place] [phone] Skpi mAaya M.D., Ph.D. [address] [place] [phone] 02/25/2025 10:40 AM CDT Office Visit Department of Oncology in [address] [phone] Sandy Judge, KASH, C.N.P., M.S. [address] [place] [phone] 02/25/2025 11:30 AM CDT Infusion Department of Oncology in [address] [phone] Skip Amaya M.D., Ph.D. [address] [place] [phone] 03/04/2025 6:00 AM CDT Lab Department of Infusion Therapy in [address] [phone] Skip Amaya M.D., Ph.D. [address] [place] [phone] 03/04/2025 8:10 AM CDT Office Visit Department of Oncology in [place], [place] [address] [place] [phone] Jie Shoko P.A.-C. [address] [place] [phone] 03/04/2025 9:30 AM CDT Infusion Department of Oncology in [place], [place] [address] [place] [phone] Skip Amaya M.D., Ph.D. [address] [place] [phone] 03/10/2025 2:15 PM CDT Clinical Communication Virtual Review in [place], [place] 200 [place] [address] 03/11/2025 6:00 AM CDT Lab Department of Laboratory Medicine and Pathology, [facility] in [address] [phone] Skip Amaya M.D., Ph.D. [address] [place] [phone] 03/11/2025 7:20 AM CDT Office Visit Department of Oncology in [address] [phone] Bipin Leal P.A.-C., M.S. [address] [place] [phone] 03/11/2025 8:00 AM CDT Infusion Department of Oncology in [address] [phone] Skip Amaya M.D., Ph.D. [address] [place] [phone] 03/24/2025 7:30 AM CDT Appointment Department of Radiology, [facility], in [place], [place] [address] [place] [phone] Skip Amaya M.D., Ph.D. [address] [place] [phone] 03/24/2025 11:20 AM CDT Lab Department of Infusion Therapy in [place], [place] [address] [place] [phone] Skip Amaya M.D., Ph.D. [address] [place] [phone] 03/24/2025 1:30 PM CDT Office Visit Department of Oncology in [address] [phone] Skip Amaya M.D., Ph.D. [address] [place] [phone] 03/25/2025 7:00 AM CDT Infusion Department of Oncology in [address] [phone] Skip Amaya M.D., Ph.D. [address] [place] [phone] 03/29/2025 2:30 PM CDT Clinical Communication Virtual Review in [place], [place] 200 [place] [address] 04/01/2025 6:00 AM CDT Lab Department of Infusion Therapy in [address] [phone] Skip Amaya M.D., Ph.D. [address] [place] [phone] 04/01/2025 8:20 AM CDT Office Visit Department of Oncology in [address] [phone] Precious Hill M.D., Ph.D. [address] [place] [phone] 04/01/2025 9:00 AM CDT Infusion Department of Oncology in [place], [place] [address] [place] [phone] Skip Amaya M.D., Ph.D. [address] [place] [phone] 04/07/2025 11:00 AM CDT Lab Department of Infusion Therapy in [place], [place] [address] [place] [phone] Skip Amaya M.D., Ph.D. [address] [place] [phone] 04/07/2025 1:20 PM CDT Office Visit Department of Oncology in [address] [phone] Sandy Judge, AKSH, C.N.P., M.S. [address] [place] [phone] 04/08/2025 7:00 AM CDT Infusion Department of Oncology in [place], [place] [address] [place] [phone] Skip Amaya M.D., Ph.D. [address] [place] [phone] 04/21/2025 7:15 AM CDT Clinical Communication Virtual Review in [place], [place] 200 [place] [address] 04/22/2025 7:20 AM CDT Lab Department of Infusion Therapy in [place], [place] [address] [place] [phone] Skip Amaya M.D., Ph.D. [address] [place] [phone] 04/22/2025 9:20 AM CDT Office Visit Department of Oncology in [place], [place] [address] [place] [phone] Sandy Judge APRN, Jordy.N.P., M.S. [address] [place] [phone] 04/22/2025 10:30 AM CDT Infusion Department of Oncology in [place], [place] [address] [place] [phone] Skip Amaya M.D., Ph.D. [address] [place] [phone] 04/29/2025 11:15 AM CDT Lab Department of Oncology in [place], [place] [address] [place] [phone] Skip Amaya M.D., Ph.D. [address] [place] [phone] 04/29/2025 1:20 PM CDT Office Visit Department of Oncology in [address] [phone] Sandy Judge APRN, C.N.P., M.S. [address] [place] [phone] 04/29/2025 2:00 PM CDT Infusion Department of Oncology in [address] [phone] Skip Amaya M.D., Ph.D. [address] [place] [phone] documented as of this encounter Goals Goal Patient Goal Type Associated Problems Recent Progress Patient-Stated? Author Autogenerat ed Goal Care Plan Autogenerated Problem No Hedy Lees, R.N. documented as of this encounter Visit Diagnoses Not on filedocumented in this encounter Additional Health Concerns Active Problems Noted Date Diagnosed Date Autogenerated Problem 11/16/2024 documented as of this encounter Care Teams Pharmacists Relationship Specialty Start Date End Date Elsewhere, Pcp PCP - General Internal Medicine 09/09/23 documented as of this encounter
--- OUTSIDE RECORDS SUMMARY | 2025-02-06 12:44 | XMS_ITS | Encounter Summary ---
Author Organization [facility] Address [address] [place] [phone] Care Team Providers Care Blasting Clay Miner Name Role Phone Elsewhere, Pcp Primary Care Provider Unavailabl e Reason for Visit * Reason Onset Date Comments Appt Request 12/29/2024 Encounter Details Date Type Department Care Team (Latest Contact Info) Description 12/29/2024 Clinical Communication Division of Gastroenterology in [place], [place] [address] [place] [address] Drea Means APRN, C.N.P., D.N.P. [address] [place] [phone] Appt Request Social History Tobacco Use Types Packs/Day Years Used Date Smoking Tobacco: Never Passive Smoke Exposure: Past Smokeless Tobacco: Never Passive Exposure Comments:Ch ildhood exposure. Alcohol Use Standard Drinks/Week Comments Not Currently 1 (1 standard drink = 0.6 oz pur e alcohol) 0-1 drink per week [facility] Utilities Answer Date Recorded In the past 12 months has [employer], gas, oil, or water company threatened [...] your living situation today? I have a [facility] place to live 12/23/2024 Sex and Gender Information Value Date Recorded Sex Assigned at Male 09/10/2023 7:48 AM NURSING INFORMATICS SPECIALIST Legal Sex Male 10:11 PM NURSING INFORMATICS SPECIALIST Gender Identity Male 09/10/2023 7:48 AM NURSING INFORMATICS SPECIALIST Sexual Orientation Straight 09/10/2023 7: 48 AM NURSING INFORMATICS SPECIALIST documented as of this encounter Miscellaneous Notes [...] provider: Review complete. LIBIA Nye BSN, RN [facility] documented in this encounter Plan of Treatment Upcoming Encounters Date Type Department Care Team (Latest Contact Info) Description 02/08/2025 2:15 PM CDT Clinical Communication Virtual Review in [place], [place] 200 [place] [address] 02/09/2025 9:30 AM CDT Telemedicine Department of Oncology in [address] [phone] Jesica Wasserman M.B., B.Ch. [address] [place] [phone] Cecily Nash L.I.C.SJustynWJustyn [address] [place] [phone] 02/10/2025 12:00 PM CDT Lab Department of Infusion Therapy in [address] [phone] Skip Amaya M.D., Ph.D. [address] [place] [phone] 02/10/2025 2:30 PM CDT Office Visit Department of Oncology in [address] [phone] Rosenda Garza MPAS, P.A.-C. [address] [place] [phone] 02/11/2025 8:00 AM CDT Infusion Department of Oncology in [address] [address] Skip Amaya M.D., Ph.D. [address] [place] [phone] 02/23/2025 2:15 PM CDT Clinical Communication Virtual Review in [place], [place] [address] [place] [address] 02/25/2025 8:30 AM CDT Lab Department of Oncology in [address] [phone] Skip Amaya M.D., Ph.D. [address] [place] [phone] 02/25/2025 10:40 AM CDT Office Visit Department of Oncology in [address] [phone] Sandy Judge APRN, C.N.P., M.S. [address] [place] [phone] 02/25/2025 11:30 AM CDT Infusion Department of Oncology in [address] [address] Skip Amaya M.D., Ph.D. [address] [place] [phone] 03/04/2025 6:00 AM CDT Lab Department of Infusion Therapy in [address] [address] Skip Amaya M.D., Ph.D. [address] [place] [phone] 03/04/2025 8:10 AM CDT Office Visit Department of Oncology in [address] [phone] Jie Shook PJustynAWilmer. [address] [place] [phone] 03/04/2025 9:30 AM CDT Infusion Department of Oncology in [place], [place] [address] [place] [phone] Skip Amaya M.D., Ph.D. [address] [place] [phone] 03/10/2025 2:15 PM CDT Clinical Communication Virtual Review in [place], [place] [address] [place] [address] 03/11/2025 6:00 AM CDT Lab Department of Laboratory Medicine and Pathology, [facility] in [place], [place] [address] [place] [phone] Skip Amaya M.D., Ph.D. [address] [place] [phone] 03/11/2025 7:20 AM CDT Office Visit Department of Oncology in [address] [address] Bipin Leal P.A.-C., M.S. [address] [place] [phone] 03/11/2025 8:00 AM CDT Infusion Department of Oncology in [address] [address] Skip Amaya M.D., Ph.D. [address] [place] [phone] 03/24/2025 7:30 AM CDT Appointment Department of Radiology, [facility], in [address] [address] Skip Amaya M.D., Ph.D. [address] [place] [phone] 03/24/2025 11:20 AM CDT Lab Department of Infusion Therapy in [place], [place] [address] [place] [phone] Skip Amaya M.D., Ph.D. [address] [place] [phone] 03/24/2025 1:30 PM CDT Office Visit Department of Oncology in [place], [place] [address] [place] [phone] Skip Amaya M.D., Ph.D. [address] [place] [phone] 03/25/2025 7:00 AM CDT Infusion Department of Oncology in [place], [place] [address] [place] [phone] Skip Amaya M.D., Ph.D. [address] [place] [phone] 03/29/2025 2:30 PM CDT Clinical Communication Virtual Review in [place], [place] [address] [place] [address] 04/01/2025 6:00 AM CDT Lab Department of Infusion Therapy in [address] [phone] Sikp Amaya M.D., Ph.D. [address] [place] [phone] 04/01/2025 8:20 AM CDT Office Visit Department of Oncology in [place], [place] [address] [place] [phone] Precious Hill M.D., Ph.D. [address] [place] [phone] 04/01/2025 9:00 AM CDT Infusion Department of Oncology in [place], [place] [address] [place] [phone] Skip Amaya M.D., Ph.D. [address] [place] [phone] 04/07/2025 11:00 AM CDT Lab Department of Infusion Therapy in [place], [place] [address] [place] [phone] Skip Amaya M.D., Ph.D. [address] [place] [phone] 04/07/2025 1:20 PM CDT Office Visit Department of Oncology in [place], [place] [address] [place] [phone] Sandy Judge APRN, C.N.P., M.S. [address] [place] [phone] 04/08/2025 7:00 AM CDT Infusion Department of Oncology in [place], [place] [address] [place] [phone] Skip Amaya M.D., Ph.D. [address] [place] [phone] 04/21/2025 7:15 AM CDT Clinical Communication Virtual Review in [place], [place] 200 [place] [address] 04/22/2025 7:20 AM CDT Lab Department of Infusion Therapy in [place], [place] [address] [place] [phone] Skip Amaya M.D., Ph.D. [address] [place] [phone] 04/22/2025 9:20 AM CDT Office Visit Department of Oncology in [place], [place] [address] [place] [phone] Sandy Judge APRN, C.N.P., M.S. [address] [place] [phone] 04/22/2025 10:30 AM CDT Infusion Department of Oncology in [place], [place] [address] [place] [phone] Skip Amaya M.D., Ph.D. [address] [place] [phone] 04/29/2025 11:15 AM CDT Lab Department of Oncology in [place], [place] [address] [place] [phone] Skip Amaya M.D., Ph.D. [address] [place] [phone] 04/29/2025 1:20 PM CDT Office Visit Department of Oncology in [place], [place] [address] [place] [phone] Sandy Judge, KASH, C.N.P., M.S. [address] [place] [phone] 04/29/2025 2:00 PM CDT Infusion Department of Oncology in [place], [place] [address] [place] [phone] Skip Amaya M.D., Ph.D. [address] [place] [phone] documented as of this encounter Goals Goal [...] documented as of this encounter Care Teams Blasting Clay Miner Relationship Specialty Start Date End Date Elsewhere, Pcp PCP - General Internal Medicine 09/09/23 documented as of this encounter
--- OUTSIDE RECORDS SUMMARY | 2025-02-06 12:45 | XMS_ITS | Encounter Summary ---
Author Organization [facility] Address [address] [place] [id number] Care Team Providers Care Customer Experience Leader Name Role Phone Elsewhere, Pcp Primary Care Provider Unavailabl e Encounter Details Date Type Department Care Team (Late st Contact Info) Description 01/30/2025 Documentation Department of Oncology in [place], [place] [address] [place] [phone] Jurgen Flores Jr., M.D., M.B.A. [address] [place] [phone] Social History Tobacco Use Types Packs/Day Years Used Date Smoking Tobacco: Never Passive Smoke Exposure: Past Smokeless Tobacco: Never Passive Exposure Comments:Ch ildhood exposure. Alcohol Use Standard Drinks/Week Comments Not Currently 1 (1 standard drink = 0.6 oz pur e alcohol) 0-1 drink per week [facility] Utilities Answer Date Recorded In the [...] your living situation today? I have a [facility] place to live 12/23/2024 Education Answer Date Recorded What is the highest level of school you have completed or the highest degree you have received? Master's degree (e.g., MA, MS, Katelyn, MEd, WAITER, KELLEE) 01/05/2025 Sex and Gender Information Value Date Recorded Sex Assigned at Male 09/10/2023 7:48 AM FOAM GUN OPERATOR Legal Sex Male 10:11 PM FOAM GUN OPERATOR Gender Identity Male 09/10/2023 7:48 AM FOAM GUN OPERATOR Sexual Orientation Straight 09/10/2023 7: 48 AM FOAM GUN OPERATOR documented as of this encounter Progress Notes * Jurgen Flores Jr., M.D., M.B.A. - 01/30/2025 9:28 PM CDT Noel Mata presented to the [facility] for evaluation of his abdominal pain and fever. He had a CBC, CMP, and a CT scan of his abdomen done. His lactate was mildly elevated, and this resolved with 1 L of fluid rehydration. He also had mild leukocytosis and his CT abdomen did not show any acute pathology. I spoke with Dr. Durbin at the [facility] who thinks he is stable enough to be discharged home as the patient is feeling significantly better, his pain has resolved with some pain medications, and he is able to have some po intake. He will be instructed to call his primary team tomorrow morning for follow up. I will also notify his team of his ER visit. documented in this encounter Plan of Treatment Upcoming Encounters Date Type Department Care Team (Latest Contact Info) Description 02/08/2025 2:15 PM CDT Clinical Communication Virtual Review in [place], [place] 200 [place] [phone] 02/09/2025 9:30 AM CDT Telemedicine Department of Oncology in [place] [id number] [place] [phone] Jesica Wasserman M.B., B.. [address] [place] [phone] Cecily Nash L.I.C.S.W. [address] [place] [phone] 02/10/2025 12:00 PM CDT Lab Department of Infusion Therapy in [place], [place] [address] [place] [phone] Skip Amaya M.D., Ph.D. [address] [place] [phone] 02/10/2025 2:30 PM CDT Office Visit Department of Oncology in [place], [place] [address] [place] [phone] Rosenda Garza MPAS, P.A.-C. [address] [place] [phone] 02/11/2025 8:00 AM CDT Infusion Department of Oncology in [place], [place] [address] [place] [phone] Skip Amaya M.D., Ph.D. [address] [place] [phone] 02/23/2025 2:15 PM CDT Clinical Communication Virtual Review in [place], [place] 200 [place] [address] 02/25/2025 8:30 AM CDT Lab Department of Oncology in [place], [place] [address] [place] [phone] Skip Amaya M.D., Ph.D. [address] [place] [phone] 02/25/2025 10:40 AM CDT Office Visit Department of Oncology in [place], [place] [address] [place] [phone] Sandy Judge, KASH, C.N.P., M.S. [address] [place] [phone] 02/25/2025 11:30 AM CDT Infusion Department of Oncology in [place], [place] [address] [place] [phone] Skip Amaya M.D., Ph.D. [address] [place] [phone] 03/04/2025 6:00 AM CDT Lab Department of Infusion Therapy in [place], [place] [address] [place] [phone] Skip Amaya M.D., Ph.D. [address] [place] [phone] 03/04/2025 8:10 AM CDT Office Visit Department of Oncology in [place], [place] [address] [place] [phone] Jie Shook P.A.-C. [address] [place] [phone] 03/04/2025 9:30 AM CDT Infusion Department of Oncology in [address] [phone] Skip Amaya M.D., Ph.D. [address] [place] [phone] 03/10/2025 2:15 PM CDT Clinical Communication Virtual Review in [place], [place] 200 [place] [address] 03/11/2025 6:00 AM CDT Lab Department of Laboratory Medicine and Pathology, [facility] in [place], [place] [address] [place] [phone] Skip Amaya M.D., Ph.D. [address] [place] [phone] 03/11/2025 7:20 AM CDT Office Visit Department of Oncology in [place], [place] [address] [place] [phone] Bipin Leal P.A.-C., M.S. [address] [place] [phone] 03/11/2025 8:00 AM CDT Infusion Department of Oncology in [address] [phone] Skip Amaya M.D., Ph.D. [address] [place] [phone] 03/24/2025 7:30 AM CDT Appointment Department of Radiology, [facility], in [place], [place] [address] [place] [phone] Skip Amaya M.D., Ph.D. [address] [place] [phone] 03/24/2025 11:20 AM CDT Lab Department of Infusion Therapy in [place], [place] [address] [place] [phone] Skip Amaya M.D., Ph.D. [address] [place] [phone] 03/24/2025 1:30 PM CDT Office Visit Department of Oncology in [place], [place] [address] [place] [phone] Skip Amaya M.D., Ph.D. [address] [place] [phone] 03/25/2025 7:00 AM CDT Infusion Department of Oncology in [place], [place] [address] [place] [phone] Skip Amaya M.D., Ph.D. [address] [place] [phone] 03/29/2025 2:30 PM CDT Clinical Communication Virtual Review in [address] [phone] 04/01/2025 6:00 AM CDT Lab Department of Infusion Therapy in [place], [place] [address] [place] [phone] Skip Amaya M.D., Ph.D. [address] [place] [phone] 04/01/2025 8:20 AM CDT Office Visit Department of Oncology in [address] [phone] Precious Hill M.D., Ph.D. [address] [place] [phone] 04/01/2025 9:00 AM CDT Infusion Department of Oncology in [address] [phone] Skip Amaya M.D., Ph.D. [address] [place] [phone] 04/07/2025 11:00 AM CDT Lab Department of Infusion Therapy in [place], [place] [address] [place] [phone] Skip Amaya M.D., Ph.D. [address] [place] [phone] 04/07/2025 1:20 PM CDT Office Visit Department of Oncology in [place], [place] [address] [place] [phone] Sandy Judge APRN, C.N.P., M.S. [address] [place] [phone] 04/08/2025 7:00 AM CDT Infusion Department of Oncology in [place], [place] [address] [place] [phone] Skip Amaya M.D., Ph.D. [address] [place] [phone] 04/21/2025 7:15 AM CDT Clinical Communication Virtual Review in [place], [place] 200 [place] [phone] 04/22/2025 7:20 AM CDT Lab Department of Infusion Therapy in [address] [phone] Skip Amaya M.D., Ph.D. [address] [place] [phone] 04/22/2025 9:20 AM CDT Office Visit Department of Oncology in [place], [place] [address] [place] [phone] Sandy Judge APRN, C.N.P., M.S. [address] [place] [phone] 04/22/2025 10:30 AM CDT Infusion Department of Oncology in [place], [place] [address] [place] [phone] Skip Amaya M.D., Ph.D. [address] [place] [phone] 04/29/2025 11:15 AM CDT Lab Department of Oncology in [place], [place] [address] [place] [phone] Skip Amaya M.D., Ph.D. [address] [place] [phone] 04/29/2025 1:20 PM CDT Office Visit Department of Oncology in [place], [place] [address] [place] [phone] Sandy Judge APRN, C.N.P., M.S. [address] [place] [phone] 04/29/2025 2:00 PM CDT Infusion Department of Oncology in [place], [place] [address] [place] [phone] Skip Amaya M.D., Ph.D. [address] [place] [phone] documented as of this encounter Goals Goal Patient Goal Type Associated Problems Recent Progress Patient-Stated? Author Autogenerat ed Goal Care Plan Autogenerated Problem Hedy Frankel, RJustynNJustyn documented as of this encounter Visit Diagnoses Not on filedocumented in this encounter Additional Health Concerns Active Problems Noted Date Diagnosed Date Autogenerated Problem 11/16/2024 Infection Onset Date Last Indicated Resolved Time Protective Environment 01/28/2025 01/28/2025 Assessment Noted Time PHQ-9 Depression Total Score: 7 01/12/20 9:53 AM CDT documented as of this encounter Care Teams Customer Experience Leader Relationship Specialty Start Date End Date Elsewhere, Pcp PCP - General Internal Medicine 09/09/23 documented as of this encounter
--- OUTSIDE RECORDS SUMMARY | 2025-02-06 12:45 | XMS_ITS | Clinical Summary ---
Author Organization [facility] Address [address] [place] [address] Care Team Providers Care Accounts Payable Bookkeeper Name Role Phone Elsewhere, Pcp Primary Care Provider Unavailabl e Source Comments Patient records contain information from all sites at [facility]. For routine questions regarding patient records, call [phone] during business hours, M-F 8:00 AM - 5:00 PM Central Time. Record requests for emergency care only can be directed to [phone] at any time.[facility] Allergies Active Allergy Reactions Criticality Noted [...] 4 (four) times a day. 4 Active oxyCODONE (Roxicodone) 5 mg immediate release tabletIndicati [...] ). 30 tablet 3 5 026 Active calcium carbonate 1,250 mg (500 mg calcium) chewable tablet Chew 500 mg of calcium daily with morning meal. Active polyethylene glycol (Miralax) 17 gram powder packet Take 17 g by mouth daily. Dissolve each 17 g dose in 240 mLs (8 ounces) of beverage. Active loperamide (Imodium A-D) 2 mg capsule Take 2 mg by mouth 4 (four) times a day as needed for diarrhea. Active UNABLE TO FIND Med Name: marijuana, inhaled. Patient to obtain medical marijuana prescription Active clopidogreL (Plavix) 75 mg tablet Take 1 tablet by mouth daily. 4 025 Discontin ued(Thera py completed ) oxyCODONE (Roxicodone) 5 mg immediate release tablet Take 5-10 mg by mouth every 4 (four) hours as needed. 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 5 Clinical Communication Department of Oncology in [place], [place] [address] [place] [address] Jurgen Flores Jr., M.D., M.B.A. 5 7:00 AM CDT Infusion Department of Oncology in [place], [place] [address] [place] [address] Skip Amaya M.D., Ph.D. 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 Perla Chester 5 1:20 PM CDT Office Visit Department of Oncology in [place], [place] [address] [place] [phone] Precious Hill M.D., Ph.D. 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 5 8:15 AM CDT - 5 11:59 PM CDT Hospital Encounter Department of Radiology, [facility], in [place], [place] [address] [place] [phone] Skip Amaya M.D., Ph.D. Malignant Neoplasm Of Pancreas Tail (HCC) Discharge Disposition: Home or Self Care 5 8:00 AM CDT Lab Department of Oncology in [place], [place] [address] [place] [phone] Skip Amaya M.D., Ph.D. 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 Jony Avilez M.D. Depression Major One Episode [...] CDT Telemedicine Department of Oncology in [address] [phone] Jesica Wasserman M.B., B.Ch. Cecily Nash, L.I.C.S.W. Malignant Neoplasm Of Pancreas Tail (HCC); Depression Major One Episode Moderate (HCC) 5 Results Follow-Up Department of Medical Genetics in [place], [place] [address] [place] [address] Criselda Hagen, Unlicensed [facility]INA [facility]. [employer]. Sent Out Lab 5 Documentation Department of Medical Genetics in [place], [place] [address] [place] [address] Criselda Hagen, Unlicensed NINA Genetic Testing Results 5 Results Follow-Up Department of Oncology in [address] [place] [phone] Jesica Wasserman M.B., B.Ch. Mismatch Repair (MMR) Protein Immunohistochemistry Only, Tumor 5 Orders Only Department of Oncology in [address] [phone] Juliette Martinez M.SSusu., L.I.C.S.W. 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 5 Clinical Communication [facility] Department of Family Medicine in [place] [address] [address] [facility] [place] [address] Yanely Silva M.D. 5 2:00 PM CDT Comprehensive Visit Department of Oncology in [address] [phone] Jesica Wasserman M.B., B.Ch. Malignant Neoplasm Of [...] 5 Clinical Communication Department of Oncology in [address] [phone] Jesica Wasserman M.B., B.Ch. 5 Results Follow-Up Division of Gastroenterology in [place], [place] [address] [place] [phone] Drea Means APRN, C.N.P., D.N.P. Cytology Fine Needle Aspiration (including core biopsies) 5 Clinical Communication [facility] [place] [place] [address] [place] [phone] Akash Hudson M.D. Follow-up (Post procedure call) 5 9:58 AM CDT - 5 1:24 PM CDT Hospital Encounter [place], [place] [address] [place] [phone] Drea Means APRN C.N.P., D.N.P. Malignant Neoplasm Of Pancreas Adenocarcinoma (HCC); Mass Pancreas Discharge Disposition: Home or Self Care 5 [place], [place] [address] [place] [phone] Provider, Historical 5 1:00 PM CDT Comprehensive Visit Department of Medical Genetics in [place], [place] [address] [place] [phone] Garland Porter M.D. Danay Diaz MJustynS., CGC Mass Pancreas (Primary Dx) 5 12:42 PM CDT - 5 11:59 PM CDT Hospital Encounter Department of Laboratory Medicine and Pathology, [facility] in [place], [place] [address] [place] [address] Usman Borrego M.D. Mass Pancreas Discharge Disposition: Home or Self Care 5 12:30 PM CDT Comprehensive Visit Department of Medical Genetics in [place], [place] [address] [place] [address] Garland Porter M.D. Hanson, Grace, Unlicensed [place] Mass Pancreas 5 8:00 AM CDT Comprehensive Visit Division of Gastroenterology in [place], [place] [address] [place] [address] Drea Means APRN, C.N.P., D.N.P. Mass Pancreas (Primary Dx) 5 Clinical Communication Department of Medical Genetics in [place], [place] [address] [place] [phone] Danay Diaz M.S., [facility] genetic testing 5 Clinical Communication Division of Gastroenterology in [place], [place] [address] [place] [phone] Prescheduling, Provider Slides returned NOT read 5 Clinical Communication Division of Gastroenterology in [place], [place] [address] [place] [phone] Drea Means APRN, C.N.P., D.N.P. Appt Request 5 Results Follow-Up Division of Gastroenterology in [place], [place] [address] [place] [phone] Drea Means APRN, C.N.P., D.N.P. CBC with Differential, Blood, Comprehensive Metabolic Panel, Bilirubin, Direct, Additional followed-up results: 4 5 11:05 AM CDT - 5 11:59 PM CDT Hospital Encounter Department of Radiology, [facility], in [place], [place] [address] [place] [address] Garland Porter M.D. Mass Pancreas Discharge Disposition: Home or Self Care 5 10:04 AM CDT - 5 11:04 AM CDT Hospital Encounter Department of Laboratory Medicine and Pathology, [facility], in [place], [place] [address] [place] [address] Garland Porter M.D. Mass Pancreas Discharge Disposition: Home or Self Care 5 4:15 PM CDT Ancillary Procedure Department of Radiology in [place], [place] [address] [place] [address] Garland Porter M.D. Mass Pancreas 5 3:00 PM CDT Virtual Visit Division of Gastroenterology in [place], [place] [address] [place] [phone] Luisa Butts M.S.N., R.N. Mass Pancreas (Primary Dx); Malignant Neoplasm Of Pancreas Adenocarcinoma (HCC) 5 Orders Only Division of Gastroenterology in [place], [place] [address] [place] [address] [facility], ProviderMD Malignant Neoplasm Of Pancreas Adenocarcinoma (HCC) 5 Orders Only Division of Gastroenterology in [place], [place] [address] [place] [address] Vicente Garcia M.D. 5 Clinical Communication Division of Gastroenterology in [place], [place] [address] [place] [phone] Prescheduling, Provider Pancreas (Pre-Visit Scheduling) 5 Clinical Communication Division of Gastroenterology in [place], [place] [address] [place] [address] Prescheduling, Provider Previsit Preparation; Hepatobiliary; OSM - [...] pur e alcohol) 0-1 drink per week [employer] Answer Date Recorded In the past 12 months has [employer], gas, oil, or water [employer] threatened to shut off services in [...] received? Master's degree (e.g., MA, MS, Katelyn, Marii, MACHINIST APPRENTICE WOOD, KELLEE) 01/05/2025 Sex and Gender Information Value Date Recorded Sex Assigned at Male 09/10/2023 7:48 AM COURTESY CLERK Legal Sex Male 10:11 PM COURTESY CLERK Gender Identity Male 09/10/2023 7:48 AM COURTESY CLERK Sexual Orientation Straight 09/10/2023 7: 48 AM COURTESY CLERK Last Filed Vital Signs Vital Sign Reading [...] Mass Index 28.69 02/04/2025 8:03 AM CDT Plan of Treatment Upcoming Encounters Date Type Department Care Team (Latest Contact Info) Description 02/08/2025 2:15 PM CDT Clinical Communication Virtual Review in [address] [address] 02/09/2025 9:30 AM CDT Telemedicine Department of Oncology in [address] [address] Jesica Wasserman M.B., B.Ch. [address] [place] [phone] Cecily Nash L.I.CJustynSJustynW. [address] [place] [phone] 02/10/2025 12:00 PM CDT Lab Department of Infusion Therapy in [address] [phone] Skip Amaya M.D., Ph.D. [address] [place] [phone] 02/10/2025 2:30 PM CDT Office Visit Department of Oncology in [place], [place] [address] [place] [phone] Rosenda Garza MPAS, P.A.-C. [address] [place] [phone] 02/11/2025 8:00 AM CDT Infusion Department of Oncology in [place], [place] [address] [place] [phone] Skip Amaya M.D., Ph.D. [address] [place] [phone] 02/23/2025 2:15 PM CDT Clinical Communication Virtual Review in [place], [place] 200 [place] [address] 02/25/2025 8:30 AM CDT Lab Department of Oncology in [address] [address] Skip Amaya M.D., Ph.D. [address] [place] [phone] 02/25/2025 10:40 AM CDT Office Visit Department of Oncology in [place], [place] [address] [place] [phone] Sandy Judge APRN, C.N.P., M.S. [address] [place] [phone] 02/25/2025 11:30 AM CDT Infusion Department of Oncology in [place], [place] [address] [place] [address] Skip Amaya M.D., Ph.D. [address] [place] [phone] 03/04/2025 6:00 AM CDT Lab Department of Infusion Therapy in [place], [place] [address] [place] [phone] Skip Amaya M.D., Ph.D. [address] [place] [phone] 03/04/2025 8:10 AM CDT Office Visit Department of Oncology in [address] [address] Jie Shook P.A.-C. [address] [place] [phone] 03/04/2025 9:30 AM CDT Infusion Department of Oncology in [address] [address] Skip Amaya M.D., Ph.D. [address] [place] [phone] 03/10/2025 2:15 PM CDT Clinical Communication Virtual Review in [place], [place] [address] [place] [address] 03/11/2025 6:00 AM CDT Lab Department of Laboratory Medicine and Pathology, [facility], in [address] [address] Skip Amaya M.D., Ph.D. [address] [place] [phone] 03/11/2025 7:20 AM CDT Office Visit Department of Oncology in [address] [address] Bipin Leal P.A.-C., M.S. [address] [place] [phone] 03/11/2025 8:00 AM CDT Infusion Department of Oncology in [place], [place] [address] [place] [address] Skip Amaya M.D., Ph.D. [address] [place] [phone] 03/24/2025 7:30 AM CDT Appointment Department of Radiology, [facility], in [place], [place] [address] [place] [phone] Skip Amaya M.D., Ph.D. [address] [place] [phone] 03/24/2025 11:20 AM CDT Lab Department of Infusion Therapy in [place], [place] [address] [place] [phone] Skip Amaya M.D., Ph.D. [address] [place] [phone] 03/24/2025 1:30 PM CDT Office Visit Department of Oncology in [place], [place] [address] [place] [phone] Skip Amaya M.D., Ph.D. [address] [place] [phone] 03/25/2025 7:00 AM CDT Infusion Department of Oncology in [place], [place] [address] [place] [address] Skip Amaya M.D., Ph.D. [address] [place] [phone] 03/29/2025 2:30 PM CDT Clinical Communication Virtual Review in [place], [place] [address] [place] [address] 04/01/2025 6:00 AM CDT Lab Department of Infusion Therapy in [place], [place] [address] [place] [address] Skip Amaya M.D., Ph.D. [address] [place] [phone] 04/01/2025 8:20 AM CDT Office Visit Department of Oncology in [address] [address] Precious Hill M.D., Ph.D. [address] [place] [phone] 04/01/2025 9:00 AM CDT Infusion Department of Oncology in [address] [address] Skip Amaya M.D., Ph.D. [address] [place] [phone] 04/07/2025 11:00 AM CDT Lab Department of Infusion Therapy in [address] [address] Skip Amaya M.D., Ph.D. [address] [place] [phone] 04/07/2025 1:20 PM CDT Office Visit Department of Oncology in [address] [address] Sandy Judge APRN, C.N.P., M.S. [address] [place] [phone] 04/08/2025 7:00 AM CDT Infusion Department of Oncology in [address] [address] Skip Amaya M.D., Ph.D. [address] [place] [phone] 04/21/2025 7:15 AM CDT Clinical Communication Virtual Review in [place], [place] [address] [place] [address] 04/22/2025 7:20 AM CDT Lab Department of Infusion Therapy in [place], [place] [address] [place] [phone] Skip Amaya M.D., Ph.D. [address] [place] [phone] 04/22/2025 9:20 AM CDT Office Visit Department of Oncology in [place], [place] [address] [place] [phone] Sandy Judge APRN, C.N.P., M.S. [address] [place] [phone] 04/22/2025 10:30 AM CDT Infusion Department of Oncology in [place], [place] [address] [place] [phone] Skip Amaya M.D., Ph.D. [address] [place] [phone] 04/29/2025 11:15 AM CDT Lab Department of Oncology in [place], [place] [address] [place] [phone] Skip Amaya M.D., Ph.D. [address] [place] [phone] 04/29/2025 1:20 PM CDT Office Visit Department of Oncology in [place], [place] [address] [place] [phone] Sandy Judge APRN, C.N.P., M.S. [address] [place] [phone] 04/29/2025 2:00 PM CDT Infusion Department of Oncology in [place], [place] [address] [place] [address] Skip Amaya M.D., Ph.D. 200 [place] [address] Health Maintenance Due Date Last Done Comments [...] 09/24/2010 COVID-19 Vaccine (8 - Pfizer risk 2023- season) 2024 05/10/2024, 04/18/2023, 04/02/2022, Additional history exists Influenza Vaccine (#1) 2025 , 04/18/2023, 04/02/2022, Additional history exists Depression Monitoring (PHQ-9) 05/14/2025 01/11/2025 Office Visit for Blood Pressure Check / Re-check 02/04/2026 02/04/2025 Colonoscopy 12/06/2027 12/05/2017 Colorectal Cancer Screening 12/06/2027 Fasting Glucose for Diabetes Screening 02/05/2028 02/04/2025, 01/27/2025, 01/21/2025, Additional history exists Lipid (Cholesterol) Screening 02/25/2028 [...] Plan Autogenerated Problem No Hedy Lees R.N. Medical Devices Implanted Type Area Beading Sawyer Device Identifier Shelf Expiration Date Model / Serial / Lot Cardiac Stent Implanted:Qty : 3 Cardiac Stent Heart Lead Infinity 40x1.27x0.5 Blk - [id number] - [id number] Implanted:Qty : 1 on 11/17/2023 by Kwame Whittaker M.D., Ph.D. at [facility] Deep Brain Stimulator Hameed [id number] 07/17/2024 6172 / [id number] / Lead Infinity 40x1.27x0.5 Blk - [id number] - [id number] Implanted:Qty : 1 on 11/17/2023 by Kwame Whittaker M.D., Ph.D. at [facility] Deep Brain Stimulator Hameed [id number] 07/22/2025 6172 / [id number] / Lead Infinity Ext 8ch 50 Blk - [id number] - [id number] Implanted:Qty : 1 on 11/17/2023 by Kwame Whittaker M.D., Ph.D. at [facility] Deep Brain Stimulator Left: Neck Hameed [id number] 08/19/2025 6371 / [id number] / Description:Marked Lead Infinity Ext 8ch 50 Blk - [id number] - [id number] Implanted:Qty : 1 on 11/17/2023 by Kwame Whittaker M.D., Ph.D. at [facility] Deep Brain Stimulator Right: Neck Hameed [id number] 08/19/2025 6371 / [id number] / Liberta Rc Dbs Battery Implanted:Qty : 1 on 11/17/2023 by Kwame Whittaker M.D., Ph.D. at [facility] Deep Brain Stimulator Left: Chest Hameed [id number] 08/29/2025 97004 / [id number] / Plt Mtr Cmf Str 2h 12 - [id number] Implanted:Qty : 1 on 11/17/2023 by Kwame Whittaker M.D., Ph.D. at [facility] Hardware e.g. pins/screws/r ods Right: Cranial Depuy Synthes 04.503.0 62 / / Scrw Ti St Mtr Ronak 1.55x2.65x5 - [id number] Implanted:Qty : 2 on 11/17/2023 by Kwame Whittaker M.D., Ph.D. at [facility] Hardware e.g. pins/screws/r ods Left: Cranial Depuy Synthes 04.503.1 15.01 / / Scrw Ti St Mtr Ronak 1.55x2.65x5 - [id number] Implanted:Qty : 2 on 11/17/2023 by Kwame Whittaker M.D., Ph.D. at [facility] Hardware e.g. pins/screws/r ods Right: Cranial Depuy Synthes 04.503.1 15.01 / / Plt Mtr Cmf Str 2h 12 - [id number] Implanted:Qty : 1 on 11/17/2023 by Kwame Whittaker M.D., Ph.D. at [facility] Hardware e.g. pins/screws/r ods Left: Cranial Depuy Synthes 04.503.0 62 / / Prt Pwr Mri Mctrdcr 8f - [id number] Implanted:Qty : 1 on 01/17/2025 by Jony Avilez M.D. at [facility] Implantable Port Right: Chest Wall C.R.Bard 09/03/2025 [id number] / / [id number] Ocular Lens-Bilatera l Ocular Lens Bilateral: Eye Shoulder Implant-Right Total Replacement Shoulder Implant Right: Shoulder Procedures Procedure Name Priority Date/Time Associated Diagnosis Comments LACTATE DEHYDROGENASE (LD), S Routine 02/04/2025 7:02 AM CDT Malignant Neoplasm Of Pancreas Tail (HCC) PHOSPHORUS (INORGANIC), S Routine 02/04/2025 7:02 AM CDT Malignant Neoplasm Of Pancreas Tail (HCC) MAGNESIUM, S Routine 02/04/2025 7:02 AM CDT Malignant Neoplasm Of Pancreas Tail (HCC) COMPREHENSIVE METABOLIC PANEL, S/P Routine 02/04/2025 7:02 AM CDT Malignant Neoplasm Of Pancreas Tail (HCC) CBC WITH DIFFERENTIAL, B Routine 02/04/2025 7:01 AM CDT Malignant Neoplasm Of Pancreas Tail (HCC) ECG Routine 01/27/2025 12:49 PM CDT Malignant [...] (GFR) 45 To 59 (HCC) Mass Pancreas [employer] Routine 12/29/2024 12:53 PM CDT MISCELLANEOUS SENT [...] CDT from Last 3 Months Results * Phosphorus Inorganic (02/04/2025 7:02 AM CDT) Only the most recent of3 resultswithin the time period is included. [facility] Phosphorus (Inorganic), S 3.1 2.5 - 4.5 mg/dL 02/04/2025 8:01 AM CDT DTL Blood (Blood, Venous) 02/04/2025 7:02 AM CDT 02/04/2025 7:17 AM CDT us Skip Amaya M.D., Ph.D. LAB BLOOD ADD-ON Final [facility] Performing Organization Address City/[facility] Co de Phone Number [facility] [address] [place] [address] * Magnesium (02/04/2025 7:02 AM CDT) Only the most recent of3 resultswithin the time period is included. [facility] Magnesium, S 2.0 1.7 - 2.3 mg/dL 02/04/2025 8:01 AM CDT DT Blood (Blood, Venous) 02/04/2025 7:02 AM CDT 02/04/2025 7:17 AM CDT us Skip Amaya M.D., Ph.D. LAB BLOOD ADD-ON Final [facility] Performing Organization Address City/[facility]/ZIP Co de Phone Number [facility] [address] [place] [address], [place] [address] * LD (Lactate Dehydrogenase) (02/04/2025 7:02 AM CDT) Only the most recent of3 resultswithin the time period is included. [facility] Katrina LD 139 122 - 222 U/L 02/04/2025 8:10 AM CDT DTL Blood (Blood, Venous) 02/04/2025 7:02 AM CDT 02/04/2025 7:29 AM CDT us Skip Amaya M.D., Ph.D. LAB BLOOD NON ADD-ON Fin al Result [facility] [address] [place] [address], [facility] DTL [facility] [address] [place] [address] * (ABNORMAL) Comprehensive Metabolic Panel (02/04/2025 7:02 AM CDT) Only the most recent of4 resultswithin the time period is included. Pathologist [facility] Potassium, S 4.6 3.6 - 5.2 mmol/L [...] LAB BLOOD ADD-ON Final R esult [facility] 200 [place] [address], [facility] [address] [place] [address] * (ABNORMAL) CBC with Differential, Blood (02/04/2025 7:01 AM CDT) Only the most recent of4 resultswithin the time period is included. Hemoglobin 12.6(L) 13.2 - 16.6 g/dL 02/04/2025 [...] LAB BLOOD ADD-ON Final R esult [facility] [address] [place] [address], [facility] DTL [facility] [address] [place] [address] DHPM [facility] [address] [place] [address] * ECG 12 Lead (01/27/2025 12:49 PM CDT) Only the most recent of6 resultswithin the time period is included. Ventricular Rate ECG/Min 85 BPM MUSE [place] Interval 132 ms MUSE QRSD Interval 88 ms MUSE QT Interval 392 ms MUSE QTC Interval 466 ms MUSE P [place] 59 degrees MUSE R [place] 41 degrees MUSE T Wave [place] 72 degrees MUSE 01/27/2025 12:4 9 PM [...] ORDERABLES Final Re sult MUSE NA * (ABNORMAL) Carbohydrate Antigen 19-9 (CA 19-9) (01/27/2025 10:55 AM CDT) Only the most recent of3 resultswithin the time period is included. Pathologist [facility] Carbohydrate Ag 19-9, S 90760(H) <35 U/mL 01/28/2025 12:50 PM CDT [facility] Comment: ----ADDITIONAL INFORMATION---- The testing method is an immunoenzymatic assay manufactured by [employer] and performed on the [employer] DxI 800. Values obtained with different [...] [facility] [address] [place] [address] [facility] [address] [place] [address] * APTT (Activated Partial Thromboplastin Time) (01/27/2025 10:55 AM CDT) Only the most recent of2 resultswithin the time period is included. Pathologist [facility] Activated Partial Thrombopl Time, P 26 25 - 37 sec 01/27/2025 11:27 AM CDT DTL Blood (Blood, Venous) 01/27/2025 10:55 AM CDT 01/27/2025 11:07 AM CDT Skip Amaya M.D., Ph.D. LAB BLOOD ADD-ON Final R esult Performing Organization Address City/[facility] Co de Phone Number [facility] [address] [facility] 200 [place] [address] * Prothrombin Time (PT) (01/27/2025 10:55 AM CDT) Only the most recent of3 resultswithin the time period is included. Prothrombin Time, P 11.4 9.4 - 12.5 [...] ADD-ON Final R esult Performing Organization Address City/[facility] Co de Phone Number [facility] [address] [place] [address], [facility] [address] [place] [address] * CT Abdomen Pelvis with IV Contrast [...] have enlarged since he 02/18/2024exam. us Skip M Amaya M.D., Ph.D. IMG CT PROCEDURES Final [...] head CT without contrast dated 02/08/2024 and [facility] head CT dated 11/27/2023. FINDINGS: The [...] head CT without contrast dated 02/08/2024 and [facility] head CT dated 11/27/2023. FINDINGS: The noncontrast [...] Vein Venogram: No Venous access device: 8 Polish single lumen PowerPort with non-valved open-ended catheter [...] Vein Venogram: No Venous access device: 8 Polish single lumen PowerPort with fgr-[id number] catheter tip. Of note, this is not [...] Ph.D. LAB GENETIC TESTING Dana l Result [facility] [address] [place] [address], [facility] [address] [place] [address] * US Liver Biopsy (12/30/2024 11:29 AM [...] mass core biopsy. NR us Drea Clary KASH, C.N.P., D.N.P. IMG US PROCEDURES Final Result * (ABNORMAL) Cytology Fine Needle Aspiration (including core biopsies) (12/30/2024 11:14 AM CDT) (A) 3:04 PM CDT DTL Disclaimer This test was developed and its performance characteristics determined by [facility] in a manner consistent with CLIA [...] will be performed on block A2 at [employer], [place], [place] Signed by Mariana LindsayB.S., Ph.D. 01/24/2025 4:04 PM The following test(s) will be performed in the [facility] at the request of Jesica Wasserman M.B., [facility]: MMR Protein, IHC Only, Tumor [...] (Liver) 12/30/2024 11 :14 AM CDT us Jordy Smalls APRN.N.P., D.N.P. LAB SURG PATH ORD ERABLES Edited Result - Final [facility] [address] [place] [address], [facility] DTL [address] [place] [address] * Mismatch Repair (MMR) Protein Immunohistochemistry Only, [...] 5 4:25 PM CDT DTL Tissue ID [id number] 5 4:25 PM CDT DTL Released By [...] of protein expression by IHC (Mod Pathol. 2019;33(3):871-879 (PMID: [id number])). THERAPEUTIC IMPLICATIONS Current data suggest that in advanced stage solid tumors, targeted immunotherapies such as anti-PD-1 therapies are more likely to be effective in mismatch repair-deficient tumors than in mismatch repair-proficient tumors (Science. 2017 Jan 31;357(5314):409- 413 (PMID [id number]); J Clin Oncol. 2018 Jul 26:[id number] (PMID 58706729)). For interpretation of therapeutic implications of these [...] MLH-1 immunohistochemistry studies (anti-MLH-1 clone ES05, [employer], [place], [place]; [employer] Optiv[employer] + Optiview AMP Detection) MSH-2 : specimen for MSH-2 immunohistochemistry studies (anti-MSH-2 clone FE11, [facility], [place], [place]; Leica Bello Polymer Refine Detection) MSH-6: specimen for MSH-6 immunohistochemistry studies (anti-MSH-6 clone SP93, [employer], [place], [place]; [employer] Optiview Detection) PMS-2: specimen for PMS-2 immunohistochemistry studies (anti-PMS-2 clone EP51, [employer], [place], [place]; [employer] Optiview + Optiview AMP Detection) [...] its performance characteristics determined by [facility] in a manner consistent with CLIA requirements. This test has not been cleared or approved by the U.S. Food and Drug Administration. Tissue (Liver) 12/30/2024 11 :14 AM CDT 01/10/2025 11:17 AM CDT Olu Acevedo.Rhina. LAB GENETIC TESTING Final Result [facility] [address] [place] [address], [facility] [address] [place] [address] * [facility]. [employer] Sent Out Lab (12/29/2024 12:53 PM CDT) Test Name [employer] Custom + RNA Panel 12/29/2024 12:53 PM CDT INVC Result SEE COMMENT 01/05/2025 1:01 PM CDT [facility] Comment: For final report, select Lab-Send Out Lab Results hyperlink below. 12/29/2024 12:5 3 PM CDT 12/29/2024 3:45 PM CDT us Usman Borrego M.D. LAB MISC ORDERABLES Final Result [employer] [address] [place] [address], [facility] INVC [employer] [address] [place] [address] * [id number] [employer] Custom + RNA Panel - Miscellaneous Test (12/29/2024 12:50 PM CDT) Test Name [employer] Custom + RNA Panel 12/29/2024 12:50 PM CDT HLS Result Specimen sent out; results to follow DEFAULT 12/29/2024 12:50 PM CDT HLS Blood (Blood, Venous) 12/29/2024 12:50 PM CDT 12/29/2024 12:50 PM CDT us Usman Borrego M.D. LAB MISC ORDERABLES Final Result Performing Organization Address City/[facility]/ZIP Co de Phone Number [facility] [address] [place] [address], [facility] [address] [place] [address] * CT Pancreas Angiogram Triple Phase and [...] Porter M.D. IMG CT PROCEDURES Final Result * Cell-free DNA [...] REFERENCES 1. Gisselle Oncol. 2012;24(8):2062- 7 (PMID [id number]) 2. Gina Rev Clin Oncol. 2010Feb 26;8(11):661-8 (PMID [id number]) 3. Mod Pathol. 2007;21 Suppl 2:S16-22 (PMID [id number]) 4. J Clin Oncol. 2004Mar 07;23(25):5900-9 (PMID [id number]) 12/30/2024 11:34 AM CDT DTL Comment: ----ADDITIONAL [...] its performance characteristics determined by [facility] in a manner consistent with CLIA requirements. This test has not been cleared or approved by the U.S. Food and Drug Administration. Blood (Blood, Venous) 12/28/2024 10:35 AM CDT 12/28/2024 11:34 AM CDT [facility] - 12/30/2024 11:34 AM CDT Specimen Information: Specimen ID: [id number] Specimen Type: Blood Specimen Collection Start Date: 12/28/2024 10:35 AM Specimen Received Date: 12/28/2024 11:34 AM Specimen ID: [id number] Specimen Type: Blood Specimen Collection Start Date: 12/28/2024 10:35 AM Specimen Received Date: 12/28/2024 11:34 AM us [place] Porter M.D. LAB GENETIC TESTING Final Result Performing Organization Address City/[facility]/ZIP Co de Phone Number [facility] [address] [place] [address], [facility] 200 [facility] 200 [place] [address] * Prealbumin (PAB) (12/28/2024 10:35 AM CDT) Prealbumin (PAB), S 34 19 - 38 mg/dL 12/29/2024 8:10 AM CDT [facility] Blood (Blood, Venous) 12/28/2024 10:35 AM CDT 12/28/2024 6:17 PM CDT us [place] Porter M.D. LAB BLOOD ADD-ON Final Result Performing Organization Address City/[facility] Co de Phone Number [facility] [address] [place] [address] [facility] [address] [place] [address] * (ABNORMAL) Hemoglobin A1c (12/28/2024 10:35 AM CDT) Pathologist [facility] Hemoglobin A1c, B 6.2(H) 4.0 - 5.6 % 12/28/2024 11:51 AM CDT DT Comment: Hemoglobin A1c values of 5.7-6.4 percent indicate an increased risk for developing diabetes mellitus. In diabetic patients, HbA1c goals should be discussed with healthcare provider. Blood (Blood, Venous) 12/28/2024 10:35 AM CDT 12/28/2024 10:59 AM CDT us [place] Porter M.D. LAB BLOOD ADD-ON Final Result Performing Organization Address City/[facility]/ZIP Co de Phone Number [facility] [address] [place] [address], [place] [facility] 200 [place] [address] * Bilirubin, Direct (12/28/2024 10:35 AM CDT) Bilirubin, Direct, S 0.2 0.0 - 0.3 mg/dL 12/28/2024 11:46 AM CDT DTL Blood (Blood, Venous) 12/28/2024 10:35 AM CDT 12/28/2024 11:24 AM CDT us [place] Porter M.D. LAB BLOOD ADD-ON Final Result [facility] [address] [place] [address], [facility] DTL [facility] [address] [place] [address] * Interpretation of Outside CT Chest (12/24/2024 [...] contrast. COMPARISON: Outside chest CT 02/18/2024, subsequent [facility] CT abdomen 12/28/2024. FINDINGS: No definitive [...] contrast. COMPARISON: Outside chest CT 02/18/2024, subsequent [facility] CT abdomen12/28/2024. FINDINGS: No definitive change [...] characterizedon subsequent CT abdomen. [place] Porter M.D. [facility] PROCEDURES Final Result * Outside CT Body (12/23/2024 1:30 PM CDT) Only the most recent of2 resultswithin the time period is included. 12/23/2024 2:37 PM CDT Addenda Addendum by [employer], Outside on 12/23/2024 2:37 PM CDT BELOW REPORT RECEIVED BY [facility] ON 12/24/2024 09:46:10 [id number] For Patients: As a result of the [...] Charissa Monteiro RELEASED BY SNEHAL Addendum by [employer], Outside on 12/23/2024 2:37 PM CDT BELOW REPORT RECEIVED BY [facility] ON 12/24/2024 09:46:10 [id number] For Patients: As a result of the [...] Charissa Monteiro RELEASED BY SNEHAL Addendum by [employer], Outside on 12/23/2024 2:37 PM CDT BELOW REPORT RECEIVED BY [facility] ON 12/24/2024 09:45:09 [id number] For Patients: As a result of the [...] Charissa Monteiro RELEASED BY SNEHAL Addendum by [employer], Outside on 12/23/2024 2:37 PM CDT BELOW REPORT RECEIVED BY [facility] ON 12/24/2024 09:45:09 [id number] For Patients: As a result of the [...] Charissa Monteiro RELEASED BY SNEHAL Addendum by [employer], Outside on 12/23/2024 2:37 PM CDT BELOW REPORT RECEIVED BY [facility] ON 12/24/2024 09:44:15 [id number] For Patients: As a result of the [...] Last Indicated Protective Environment 01/28/2025 Insurance MEDICARE [facility] Advance Directives For more information, please contact: [phone] Documents on File Type Date Recorded Patient Computer Hardware Developer Expl anation Advance Directives 12/29/2024 12:00 PM [...] First Alternate Health Care Agent Care Teams Accounts Payable Bookkeeper Relationship Specialty Start Date End Date Elsewhere, Pcp PCP - General Internal Medicine 09/09/23
--- OUTSIDE RECORDS SUMMARY | 2025-02-06 12:45 | XMS_ITS | Encounter Summary ---
Author Organization [facility] Address [address] [place] [address] Care Team Providers Care Chain Mortiser Operator Name Role Phone Elsewhere, Pcp Primary Care Provider Unavailabl e Reason for Referral * MRI/CAT/PET Scan (Routine) - Authorized Specialty Diagnoses / Procedures Referred By Contac t Referred To Contact Radiology Diagnoses Malignant Neoplasm Of Pancreas Tail (HCC) Procedures CT Abdomen Pelvis with IV Contrast Skip Amaya M.D., Ph.D. [address] [place] [phone] Phone: tel: fax: [facility] Referral ID Status Reason Start Date Expiration Date V isits Requested Visits Authorized [id number] Authorized 02/03/2025 05/06/2026 1 1 * MRI/CAT/PET Scan (Routine) - Authorized Specialty Diagnoses / Procedures Referred By Contac t Referred To Contact Radiology Diagnoses Malignant Neoplasm Of Pancreas Tail (HCC) Procedures CT Chest with IV Contrast Skip Amaya M.D., Ph.D. [address] [place] [phone] Phone: tel: fax: [facility] Referral ID Status Reason Start Date Expiration Date V isits Requested Visits Authorized [id number] Authorized 02/03/2025 05/06/2026 1 1 Encounter Details Date Type Department Care Team (Late st Contact Info) Description 02/03/2025 Orders Only Department of Oncology in [place], [place] [address] [place] [address] Lissett Gordillo [address] [place] [address] Malignant Neoplasm Of Pancreas Tail (HCC) (Primary [...] Recorded In the past 12 months has [employer], gas, oil, or water company threatened to [...] your living situation today? I have a [facility] place to live 12/23/2024 Education Answer Date Recorded What is the highest level of school you have completed or the highest degree you have received? Master's degree (e.g., MA, MS, Katelyn, MEd, CONTAINER FINISHING INSPECTOR, KELLEE) 01/05/2025 Sex and Gender Information Value Date Recorded Sex Assigned at Male 09/10/2023 7:48 AM MECHANICAL CAD DESIGNER Legal Sex Male 10:11 PM MECHANICAL CAD DESIGNER Gender Identity Male 09/10/2023 7:48 AM MECHANICAL CAD DESIGNER Sexual Orientation Straight 09/10/2023 7: 48 AM MECHANICAL CAD DESIGNER documented as of this encounter Plan of Treatment Upcoming Encounters Date Type Department Care Team (Latest Contact Info) Description 02/08/2025 2:15 PM CDT Clinical Communication Virtual Review in [place], [place] 200 [place] [phone] 02/09/2025 9:30 AM CDT Telemedicine Department of Oncology in [address] [phone] Jesica Wasserman M.B., B.Ch. [address] [place] [phone] Cecily Nash L.IKalpeshSJustynWJustyn [address] [place] [phone] 02/10/2025 12:00 PM CDT Lab Department of Infusion Therapy in [address] [phone] Skip Amaya M.D., Ph.D. [address] [place] [phone] 02/10/2025 2:30 PM CDT Office Visit Department of Oncology in [address] [phone] Rosenda Garza MPAS, P.A.-C. [address] [place] [phone] 02/11/2025 8:00 AM CDT Infusion Department of Oncology in [address] [phone] Skip Amaya M.D., Ph.D. [address] [place] [phone] 02/23/2025 2:15 PM CDT Clinical Communication Virtual Review in [place], [place] [address] [place] [address] 02/25/2025 8:30 AM CDT Lab Department of Oncology in [place], [place] [address] [place] [phone] Skip Amaya M.D., Ph.D. [address] [place] [phone] 02/25/2025 10:40 AM CDT Office Visit Department of Oncology in [address] [phone] Sandy Judge APRN, C.N.P., M.S. [address] [place] [phone] 02/25/2025 11:30 AM CDT Infusion Department of Oncology in [address] [phone] Skip Amaya M.D., Ph.D. [address] [place] [phone] 03/04/2025 6:00 AM CDT Lab Department of Infusion Therapy in [address] [phone] Skip Amaya M.D., Ph.D. [address] [place] [phone] 03/04/2025 8:10 AM CDT Office Visit Department of Oncology in [address] [phone] Jie Shook P.A.-C. [address] [place] [phone] 03/04/2025 9:30 AM CDT Infusion Department of Oncology in [place], [place] [address] [place] [phone] Skip Amaya M.D., Ph.D. [address] [place] [phone] 03/10/2025 2:15 PM CDT Clinical Communication Virtual Review in [place], [place] [address] [place] [address] 03/11/2025 6:00 AM CDT Lab Department of Laboratory Medicine and Pathology, [facility] in [address] [phone] Skip Amaya M.D., Ph.D. [address] [place] [phone] 03/11/2025 7:20 AM CDT Office Visit Department of Oncology in [address] [phone] Bipin Leal P.A.-C., M.S. [address] [place] [phone] 03/11/2025 8:00 AM CDT Infusion Department of Oncology in [address] [phone] Skip Amaya M.D., Ph.D. [address] [place] [phone] 03/24/2025 7:30 AM CDT Appointment Department of Radiology, [facility] in [address] [phone] Skip Amaya M.D., Ph.D. [address] [place] [phone] 03/24/2025 11:20 AM CDT Lab Department of Infusion Therapy in [place], [place] [address] [place] [phone] Skip Amaya M.D., Ph.D. [address] [place] [phone] 03/24/2025 1:30 PM CDT Office Visit Department of Oncology in [place], [place] [address] [place] [phone] Skip Amaya M.D., Ph.D. [address] [place] [phone] 03/25/2025 7:00 AM CDT Infusion Department of Oncology in [address] [phone] Skip Amaya M.D., Ph.D. [address] [place] [phone] 03/29/2025 2:30 PM CDT Clinical Communication Virtual Review in [place], [place] [address] [place] [address] 04/01/2025 6:00 AM CDT Lab Department of Infusion Therapy in [address] [phone] Skip Amaya M.D., Ph.D. [address] [place] [phone] 04/01/2025 8:20 AM CDT Office Visit Department of Oncology in [address] [phone] Precious Hill M.D., Ph.D. [address] [place] [phone] 04/01/2025 9:00 AM CDT Infusion Department of Oncology in [address] [phone] Skip Amaya M.D., Ph.D. [address] [place] [phone] 04/07/2025 11:00 AM CDT Lab Department of Infusion Therapy in [place], [place] [address] [place] [phone] Skip Amaya M.D., Ph.D. [address] [place] [phone] 04/07/2025 1:20 PM CDT Office Visit Department of Oncology in [address] [phone] Sandy Judge APRN, C.N.P., M.S. [address] [place] [phone] 04/08/2025 7:00 AM CDT Infusion Department of Oncology in [place], [place] [address] [place] [phone] Skip Aamya M.D., Ph.D. [address] [place] [phone] 04/21/2025 7:15 AM CDT Clinical Communication Virtual Review in [place], [place] [address] [place] [address] 04/22/2025 7:20 AM CDT Lab Department of Infusion Therapy in [address] [phone] Skip Amaya M.D., Ph.D. [address] [place] [phone] 04/22/2025 9:20 AM CDT Office Visit Department of Oncology in [place], [place] [address] [place] [phone] Sandy Judge APRN, C.NYoselin., M.S. [address] [place] [phone] 04/22/2025 10:30 AM CDT Infusion Department of Oncology in [place], [place] [address] [place] [phone] Skip Amaya M.D., Ph.D. [address] [place] [phone] 04/29/2025 11:15 AM CDT Lab Department of Oncology in [place], [place] [address] [place] [phone] Skip Amaya M.D., Ph.D. [address] [place] [phone] 04/29/2025 1:20 PM CDT Office Visit Department of Oncology in [address] [phone] Sandy Judge APRN, C.N.Bhavin., M.S. [address] [place] [phone] 04/29/2025 2:00 PM CDT Infusion Department of Oncology in [address] [phone] Skip Amaya M.D., Ph.D. [address] [place] [phone] Scheduled Orders Name Type Priority Associated Diagnoses Order Schedule CT Chest with IV Contrast Imaging RAD - Routine (most inpatients and all outpatients) Malignant Neoplasm Of Pancreas Tail (HCC) Expected: 03/24/2025, Expires: 05/06/2026 CT Abdomen Pelvis with IV Contrast Imaging RAD - Routine (most inpatients and all outpatients) Malignant Neoplasm Of Pancreas Tail (HCC) Expected: 03/24/2025, Expires: 05/06/2026 Carbohydrate Antigen 19-9 (CA 19-9) Lab Routine Malignant Neoplasm Of Pancreas Tail (HCC) Expected: 03/24/2025, Expires: 05/06/2026 documented as of this encounter Goals Goal [...] documented as of this encounter Care Teams Chain Mortiser Operator Relationship Specialty Start Date End Date Elsewhere, Pcp PCP - General Internal Medicine 09/09/23 documented as of this encounter
--- OUTSIDE RECORDS SUMMARY | 2025-02-06 12:46 | XMS_ITS | Encounter Summary ---
Author Organization [facility] Address [address] [place] [address] Care Team Providers Care Parts Driver Name Role Phone Elsewhere, Pcp Primary Care Provider Unavailabl e Reason for Referral * Outpatient (Routine) - Authorized Specialty Diagnoses / Procedures Referred By Meeta carlisle Referred To Contact Social Work Skip Amaya M.D., Ph.D. [address] [place] [phone] Phone: tel: fax: [facility] Referral ID Status Reason Start Date Expiration Date V isits Requested Visits Authorized [id number] Authorized 01/23/2025 07/25/2026 1 1 Scheduling Instructions [facility] Distress Management Screening * Outpatient (Routine) - Closed Specialty Diagnoses / Procedures Referred By Contomid t Referred To Contact Oncology Skip Amaya M.D., Ph.D. [address] [place] [phone] Phone: tel: fax: [facility] Referral ID Status Reason Start Date Expiration Date Visits Re quested Visits Authorized [id number] Closed 01/23/2025 07/25/2026 1 1 Scheduling Instructions [facility] Distress Management Screening Encounter Details Date Type Department Care Team (Late st Contact Info) Description 01/23/2025 Orders Only Department of Oncology in [place], [place] [address] [place] [address] Skip Amaya M.D., Ph.D. [address] [place] [address] Social History Tobacco Use Types Packs/Day Years Used Date Smoking Tobacco: Never Passive Smoke Exposure: Past Smokeless Tobacco: Never Passive Exposure Comments:Ch ildhood exposure. Alcohol Use Standard Drinks/Week Comments Not Currently 1 (1 standard drink = 0.6 oz pur e alcohol) 0-1 drink per week [facility] Utilities Answer Date Recorded In the [...] your living situation today? I have a [facility] place to live 12/23/2024 Education Answer Date Recorded What is the highest level of school you have completed or the highest degree you have received? Master's degree (e.g., MA, MS, Katelyn, MEd, [employer], KELLEE) 01/05/2025 Sex and Gender Information Value Date Recorded Sex Assigned at Male 09/10/2023 7:48 AM INSTRUMENT AND CONTROL TECHNICIAN Legal Sex Male 10:11 PM INSTRUMENT AND CONTROL TECHNICIAN Gender Identity Male 09/10/2023 7:48 AM INSTRUMENT AND CONTROL TECHNICIAN Sexual Orientation Straight 09/10/2023 7: 48 AM INSTRUMENT AND CONTROL TECHNICIAN documented as of this encounter Plan of Treatment Upcoming Encounters Date Type Department Care Team (Latest Contact Info) Description 02/08/2025 2:15 PM CDT Clinical Communication Virtual Review in [place], [place] 200 [place] [address] 02/09/2025 9:30 AM CDT Telemedicine Department of Oncology in [address] [phone] Jesica Wasserman M.B., B.Ch. [address] [place] [phone] Cecily Nash L.I.C.SJustynWJustyn [address] [place] [phone] 02/10/2025 12:00 PM CDT Lab Department of Infusion Therapy in [address] [phone] Skip Amaya M.D., Ph.D. [address] [place] [phone] 02/10/2025 2:30 PM CDT Office Visit Department of Oncology in [address] [phone] Rosenda Garza MPAS, P.A.-C. [address] [place] [phone] 02/11/2025 8:00 AM CDT Infusion Department of Oncology in [address] [address] Skip Amaya M.D., Ph.D. [address] [place] [phone] 02/23/2025 2:15 PM CDT Clinical Communication Virtual Review in [place], [place] 200 [place] [address] 02/25/2025 8:30 AM CDT Lab Department of Oncology in [place], [place] [address] [place] [phone] Skip Amaya M.D., Ph.D. [address] [place] [phone] 02/25/2025 10:40 AM CDT Office Visit Department of Oncology in [address] [phone] Sandy Judge, KASH, C.N.P., M.S. [address] [place] [phone] 02/25/2025 11:30 AM CDT Infusion Department of Oncology in [address] [address] Skip Amaya M.D., Ph.D. [address] [place] [phone] 03/04/2025 6:00 AM CDT Lab Department of Infusion Therapy in [address] [address] Skip Amaya M.D., Ph.D. [address] [place] [phone] 03/04/2025 8:10 AM CDT Office Visit Department of Oncology in [address] [phone] Jie Shook P.A.-C. [address] [place] [phone] 03/04/2025 9:30 AM CDT Infusion Department of Oncology in [address] [place] [address] Skip Amaya M.D., Ph.D. [address] [place] [phone] 03/10/2025 2:15 PM CDT Clinical Communication Virtual Review in [place], [place] 200 [place] [address] 03/11/2025 6:00 AM CDT Lab Department of Laboratory Medicine and Pathology, [facility] in [place], [place] [address] [place] [phone] Skip Amaya M.D., Ph.D. [address] [place] [phone] 03/11/2025 7:20 AM CDT Office Visit Department of Oncology in [address] [phone] Bipin Leal P.A.-C., M.S. [address] [place] [phone] 03/11/2025 8:00 AM CDT Infusion Department of Oncology in [address] [address] Skip Amaya M.D., Ph.D. [address] [place] [phone] 03/24/2025 7:30 AM CDT Appointment Department of Radiology, [facility], in [address] [address] Skip Amaya M.D., Ph.D. [address] [place] [phone] 03/24/2025 11:20 AM CDT Lab Department of Infusion Therapy in [address] [address] Skip Amaya M.D., Ph.D. [address] [place] [phone] 03/24/2025 1:30 PM CDT Office Visit Department of Oncology in [place], [place] [address] [place] [phone] Skip Amaya M.D., Ph.D. [address] [place] [phone] 03/25/2025 7:00 AM CDT Infusion Department of Oncology in [place], [place] [address] [place] [phone] Skip Amaya M.D., Ph.D. [address] [place] [phone] 03/29/2025 2:30 PM CDT Clinical Communication Virtual Review in [place], [place] 200 [place] [address] 04/01/2025 6:00 AM CDT Lab Department of Infusion Therapy in [place], [place] [address] [place] [phone] Skip Amaya M.D., Ph.D. [address] [place] [phone] 04/01/2025 8:20 AM CDT Office Visit Department of Oncology in [place], [place] [address] [place] [phone] Precious Hill M.D., Ph.D. [address] [place] [phone] 04/01/2025 9:00 AM CDT Infusion Department of Oncology in [place], [place] [address] [place] [phone] Skip Amaya M.D., Ph.D. [address] [place] [phone] 04/07/2025 11:00 AM CDT Lab Department of Infusion Therapy in [place], [place] [address] [place] [phone] Skip Amaya M.D., Ph.D. [address] [place] [phone] 04/07/2025 1:20 PM CDT Office Visit Department of Oncology in [place], [place] [address] [place] [phone] Sandy Judge APRN, C.N.P., M.S. [address] [place] [phone] 04/08/2025 7:00 AM CDT Infusion Department of Oncology in [place], [place] [address] [place] [phone] Skip Amaya M.D., Ph.D. [address] [place] [phone] 04/21/2025 7:15 AM CDT Clinical Communication Virtual Review in [place], [place] 200 [place] [address] 04/22/2025 7:20 AM CDT Lab Department of Infusion Therapy in [place], [place] [address] [place] [phone] Skip Amaya M.D., Ph.D. [address] [place] [phone] 04/22/2025 9:20 AM CDT Office Visit Department of Oncology in [place], [place] [address] [place] [phone] Sandy Judge APRN, C.N.P., M.S. [address] [place] [phone] 04/22/2025 10:30 AM CDT Infusion Department of Oncology in [place], [place] [address] [place] [phone] Skip Amaya M.D., Ph.D. [address] [place] [phone] 04/29/2025 11:15 AM CDT Lab Department of Oncology in [place], [place] [address] [place] [phone] Skip Amaya M.D., Ph.D. [address] [place] [phone] 04/29/2025 1:20 PM CDT Office Visit Department of Oncology in [address] [address] Sandy Judge APRN, C.N.P., M.S. [address] [place] [phone] 04/29/2025 2:00 PM CDT Infusion Department of Oncology in [place], [place] [address] [place] [phone] Skip Amaya M.D., Ph.D. [address] [place] [phone] Scheduled Referrals Name Type Priority Associated Diagnoses [...] documented as of this encounter Care Teams Parts Driver Relationship Specialty Start Date End Date Elsewhere, Pcp PCP - General Internal Medicine 09/09/23 documented as of this encounter
--- OUTSIDE RECORDS SUMMARY | 2025-02-06 12:46 | XMS_ITS | Encounter Summary ---
Author Organization [facility] Address [address] [place] [address] Care Team Providers Care Residency Program Coordinator Name Role Phone Elsewhere, Pcp Primary Care Provider Unavailabl e Encounter Details Date Type Department Care Team (Late st Contact Info) Description 12/23/2024 Orders Only Division of Gastroenterology in [place], [place] [address] [place] [phone] Vicente Garcia M.D. [address] [place] [phone] Social History Tobacco Use Types Packs/Day Years Used Date Smoking Tobacco: Never Passive Smoke Exposure: Past Smokeless Tobacco: Never Passive Exposure Comments:Ch ildhood exposure. Alcohol Use Standard Drinks/Week Comments Not Currently 1 (1 standard drink = 0.6 oz pur e alcohol) 0-1 drink per week [facility] Utilities Answer Date Recorded In the past 12 months has e electric, gas, oil, or water [employer] threatened to shut off services in your [...] your living situation today? I have a [facility] place to live 12/23/2024 Sex and Gender Information Value Date Recorded Sex Assigned at Male 09/10/2023 7:48 AM OPTICAL BRIGHTENER MAKER HELPER Legal Sex Male 10:11 PM OPTICAL BRIGHTENER MAKER HELPER Gender Identity Male 09/10/2023 7:48 AM OPTICAL BRIGHTENER MAKER HELPER Sexual Orientation Straight 09/10/2023 7: 48 AM OPTICAL BRIGHTENER MAKER HELPER documented as of this encounter Plan of Treatment Upcoming Encounters Date Type Department Care Team (Latest Contact Info) Description 02/08/2025 2:15 PM CDT Clinical Communication Virtual Review in [place], [place] 200 [place] [address] 02/09/2025 9:30 AM CDT Telemedicine Department of Oncology in [address] [phone] Jesica Wasserman M.B., B.Ch. [address] [place] [phone] Cecily Nash L.I.C.SJustynW. [address] [place] [phone] 02/10/2025 12:00 PM CDT Lab Department of Infusion Therapy in [place], [place] [address] [place] [phone] Skip Amaya M.D., Ph.D. [address] [place] [phone] 02/10/2025 2:30 PM CDT Office Visit Department of Oncology in [place], [place] [address] [place] [phone] Rosenda Garza MPAS, P.A.-C. [address] [place] [phone] 02/11/2025 8:00 AM CDT Infusion Department of Oncology in [place], [place] [address] [place] [phone] Skip Amaya M.D., Ph.D. [address] [place] [phone] 02/23/2025 2:15 PM CDT Clinical Communication Virtual Review in [place], [place] 200 [place] [address] 02/25/2025 8:30 AM CDT Lab Department of Oncology in [place], [place] [address] [place] [phone] Skip Amaya M.D., Ph.D. [address] [place] [phone] 02/25/2025 10:40 AM CDT Office Visit Department of Oncology in [place], [place] [address] [place] [phone] Sandy Judge, KASH, C.N.P., M.S. [address] [place] [phone] 02/25/2025 11:30 AM CDT Infusion Department of Oncology in [place], [place] [address] [place] [phone] Skip Amaya M.D., Ph.D. [address] [place] [phone] 03/04/2025 6:00 AM CDT Lab Department of Infusion Therapy in [place], [place] [address] [place] [phone] Skip Amaya M.D., Ph.D. [address] [place] [phone] 03/04/2025 8:10 AM CDT Office Visit Department of Oncology in [place], [place] [address] [place] [phone] Jie Shook P.A.-C. [address] [place] [phone] 03/04/2025 9:30 AM CDT Infusion Department of Oncology in [address] [address] Skip Amaya M.D., Ph.D. [address] [place] [phone] 03/10/2025 2:15 PM CDT Clinical Communication Virtual Review in [address] [phone] 03/11/2025 6:00 AM CDT Lab Department of Laboratory Medicine and Pathology, [facility] in [address] [address] Skip Amaya M.D., Ph.D. [address] [place] [phone] 03/11/2025 7:20 AM CDT Office Visit Department of Oncology in [address] [address] Bipin Leal, John.-Jordy., M.S. [address] [place] [phone] 03/11/2025 8:00 AM CDT Infusion Department of Oncology in [address] [address] Skip Amaya M.D., Ph.D. [address] [place] [phone] 03/24/2025 7:30 AM CDT Appointment Department of Radiology, [facility], in [place], [place] [address] [place] [phone] Skip Amaya M.D., Ph.D. [address] [place] [phone] 03/24/2025 11:20 AM CDT Lab Department of Infusion Therapy in [place], [place] [address] [place] [phone] Skip Amaya M.D., Ph.D. [address] [place] [phone] 03/24/2025 1:30 PM CDT Office Visit Department of Oncology in [place], [place] [address] [place] [phone] Skip Amaya M.D., Ph.D. [address] [place] [phone] 03/25/2025 7:00 AM CDT Infusion Department of Oncology in [address] [address] Skip Amaya M.D., Ph.D. [address] [place] [phone] 03/29/2025 2:30 PM CDT Clinical Communication Virtual Review in [place], [place] 200 [place] [address] 04/01/2025 6:00 AM CDT Lab Department of Infusion Therapy in [address] [phone] Skip Amaya M.D., Ph.D. [address] [place] [phone] 04/01/2025 8:20 AM CDT Office Visit Department of Oncology in [place], [place] [address] [place] [phone] Precious Hill M.D., Ph.D. [address] [place] [phone] 04/01/2025 9:00 AM CDT Infusion Department of Oncology in [place], [place] [address] [place] [phone] Skip Amaya M.D., Ph.D. [address] [place] [phone] 04/07/2025 11:00 AM CDT Lab Department of Infusion Therapy in [address] [address] Skip Amaya M.D., Ph.D. [address] [place] [phone] 04/07/2025 1:20 PM CDT Office Visit Department of Oncology in [address] [phone] Sandy Judge, KASH, C.N.P., M.S. [address] [place] [phone] 04/08/2025 7:00 AM CDT Infusion Department of Oncology in [address] [address] Skip Amaya M.D., Ph.D. [address] [place] [phone] 04/21/2025 7:15 AM CDT Clinical Communication Virtual Review in [place], [place] 200 [place] [address] 04/22/2025 7:20 AM CDT Lab Department of Infusion Therapy in [place], [place] [address] [place] [phone] Skip Amaya M.D., Ph.D. [address] [place] [phone] 04/22/2025 9:20 AM CDT Office Visit Department of Oncology in [place], [place] [address] [place] [phone] Sandy Judge APRN, C.N.P., M.S. [address] [place] [phone] 04/22/2025 10:30 AM CDT Infusion Department of Oncology in [place], [place] [address] [place] [phone] Skip Amaya M.D., Ph.D. [address] [place] [phone] 04/29/2025 11:15 AM CDT Lab Department of Oncology in [place], [place] [address] [place] [phone] Skip Amaya M.D., Ph.D. [address] [place] [phone] 04/29/2025 1:20 PM CDT Office Visit Department of Oncology in [place], [place] [address] [place] [phone] Sandy Judge APRN, C.N.P., M.S. [address] [place] [phone] 04/29/2025 2:00 PM CDT Infusion Department of Oncology in [place], [place] [address] [place] [phone] Skip Amaya M.D., Ph.D. [address] [place] [phone] (work) documented as of this encounter Goals Goal Patient Goal Type Associated Problems Recent Progress Patient-Stated? Author Autogenerat ed Goal Care Plan Autogenerated Problem No Hedy Lees RJustynNJustyn documented as of this encounter Visit Diagnoses Not on filedocumented in this encounter Additional Health Concerns Active Problems Noted Date Diagnosed Date Autogenerated Problem 11/16/2024 documented as of this encounter Care Teams Residency Program Coordinator Relationship Specialty Start Date End Date Elsewhere, Pcp PCP - General Internal Medicine 09/09/23 documented as of this encounter
--- OUTSIDE RECORDS SUMMARY | 2025-02-06 12:46 | XMS_ITS | Encounter Summary ---
Author Organization [facility] Address [address] [place] [address] Care Team Providers Care Tissue Rewinder Name Role Phone Elsewhere, Pcp Primary Care Provider Unavailabl e Reason for Referral * Outpatient (Routine) - Authorized Specialty Diagnoses / Procedures Referred By Meeta carlisle Referred To Contact Diagnoses Malignant Neoplasm Of Pancreas Adenocarcinoma (HCC) Lisa Davila MD [facility] Referral ID Status Reason Start Date Expiration Date V isits Requested Visits Authorized [id number] Authorized 12/23/2024 06/24/2026 1 1 Encounter Details Date Type Department Care Team (Latest Contact Info) Description 12/23/2024 Orders Only Division of Gastroenterology in [place], [place] [address] [place] [address] [facility] Malignant Neoplasm Of Pancreas Adenocarcinoma (HCC) [...] living situation today? I have a [facility] place to live 12/23/2024 Sex and Gender Information Value Date Recorded Sex Assigned at Male 09/10/2023 7:48 AM PRODUCT TECHNICIAN Legal Sex Male 10:11 PM PRODUCT TECHNICIAN Gender Identity Male 09/10/2023 7:48 AM PRODUCT TECHNICIAN Sexual Orientation Straight 09/10/2023 7: 48 AM PRODUCT TECHNICIAN documented as of this encounter Plan of Treatment Upcoming Encounters Date Type Department Care Team (Latest Contact Info) Description 02/08/2025 2:15 PM CDT Clinical Communication Virtual Review in [place], [place] [address] [place] [address] 02/09/2025 9:30 AM CDT Telemedicine Department of Oncology in [address] [phone] Jesica Wasserman M.B., B.Ch. [address] [place] [address] [phone] Cecily Nash L.I.C.S.W. [address] [place] [phone] 02/10/2025 12:00 PM CDT Lab Department of Infusion Therapy in [place], [place] [address] [place] [phone] Skip Amaya M.D., Ph.D. [address] [place] [phone] 02/10/2025 2:30 PM CDT Office Visit Department of Oncology in [place], [place] [address] [place] [phone] Rosenda Garza MPAS, P.A.-C. [address] [place] [phone] 02/11/2025 8:00 AM CDT Infusion Department of Oncology in [place], [place] [address] [place] [phone] Skip Amaya M.D., Ph.D. [address] [place] [phone] 02/23/2025 2:15 PM CDT Clinical Communication Virtual Review in [place], [place] 200 [place] [address] 02/25/2025 8:30 AM CDT Lab Department of Oncology in [place], [place] [address] [place] [phone] Skip Amaya M.D., Ph.D. [address] [place] [phone] 02/25/2025 10:40 AM CDT Office Visit Department of Oncology in [address] [phone] Sandy Judge, KASH, C.N.P., M.S. [address] [place] [phone] 02/25/2025 11:30 AM CDT Infusion Department of Oncology in [address] [phone] Skip Amaya M.D., Ph.D. [address] [place] [phone] 03/04/2025 6:00 AM CDT Lab Department of Infusion Therapy in [place], [place] [address] [place] [phone] Skip Amaya M.D., Ph.D. [address] [place] [phone] 03/04/2025 8:10 AM CDT Office Visit Department of Oncology in [place], [place] [address] [place] [phone] Jie Shook P.A.-C. [address] [place] [phone] 03/04/2025 9:30 AM CDT Infusion Department of Oncology in [address] [phone] Skip Amaya M.D., Ph.D. [address] [place] [phone] 03/10/2025 2:15 PM CDT Clinical Communication Virtual Review in [place], [place] 200 [place] [address] 03/11/2025 6:00 AM CDT Lab Department of Laboratory Medicine and Pathology, [facility] in [address] [phone] Skip Amaya M.D., Ph.D. [address] [place] [phone] 03/11/2025 7:20 AM CDT Office Visit Department of Oncology in [address] [phone] Bipin Leal P.A.-C., M.S. [address] [place] [phone] 03/11/2025 8:00 AM CDT Infusion Department of Oncology in [address] [place] [address] Skip Amaya M.D., Ph.D. [address] [place] [phone] 03/24/2025 7:30 AM CDT Appointment Department of Radiology, [facility], in [place], [place] [address] [place] [phone] Skip Amaya M.D., Ph.D. [address] [place] [phone] 03/24/2025 11:20 AM CDT Lab Department of Infusion Therapy in [place], [place] [address] [place] [phone] Skip Amaya M.D., Ph.D. [address] [place] [phone] 03/24/2025 1:30 PM CDT Office Visit Department of Oncology in [place], [place] [address] [place] [phone] Skip Amaya M.D., Ph.D. [address] [place] [phone] 03/25/2025 7:00 AM CDT Infusion Department of Oncology in [place], [place] [address] [place] [phone] Skip Amaya M.D., Ph.D. [address] [place] [phone] 03/29/2025 2:30 PM CDT Clinical Communication Virtual Review in [place], [place] 200 [place] [address] 04/01/2025 6:00 AM CDT Lab Department of Infusion Therapy in [place], [place] [address] [place] [phone] Skip Amaya M.D., Ph.D. [address] [place] [phone] 04/01/2025 8:20 AM CDT Office Visit Department of Oncology in [place], [place] [address] [place] [phone] Precious Hill M.D., Ph.D. [address] [place] [phone] 04/01/2025 9:00 AM CDT Infusion Department of Oncology in [place], [place] [address] [place] [phone] Skip Amaya M.D., Ph.D. [address] [place] [phone] 04/07/2025 11:00 AM CDT Lab Department of Infusion Therapy in [address] [phone] Skip Amaya M.D., Ph.D. [address] [place] [phone] 04/07/2025 1:20 PM CDT Office Visit Department of Oncology in [place], [place] [address] [place] [phone] Sandy Judge, KASH, C.N.P., M.S. [address] [place] [phone] 04/08/2025 7:00 AM CDT Infusion Department of Oncology in [place], [place] [address] [place] [phone] Skip Amaya M.D., Ph.D. [address] [place] [phone] 04/21/2025 7:15 AM CDT Clinical Communication Virtual Review in [place], [place] [address] [place] [address] 04/22/2025 7:20 AM CDT Lab Department of Infusion Therapy in [place], [place] [address] [place] [phone] Skip Amaya M.D., Ph.D. [address] [place] [phone] 04/22/2025 9:20 AM CDT Office Visit Department of Oncology in [place], [place] [address] [place] [phone] Sandy Judge APRN, C.N.P., M.S. [address] [place] [phone] 04/22/2025 10:30 AM CDT Infusion Department of Oncology in [place], [place] [address] [place] [phone] Skip Amaya M.D., Ph.D. [address] [place] [phone] 04/29/2025 11:15 AM CDT Lab Department of Oncology in [address] [phone] Skip Amaya M.D., Ph.D. [address] [place] [phone] 04/29/2025 1:20 PM CDT Office Visit Department of Oncology in [place], [place] [address] [place] [phone] Sandy Judge APRN, C.N.P., M.S. [address] [place] [phone] 04/29/2025 2:00 PM CDT Infusion Department of Oncology in [place], [place] [address] [place] [address] Skip Amaya M.D., Ph.D. [address] [place] [address] Scheduled Referrals Name Type Priority Associated Diagnoses [...] documented as of this encounter Care Teams Tissue Rewinder Relationship Specialty Start Date End Date Elsewhere, Pcp PCP - General Internal Medicine 09/09/23 documented as of this encounter
--- OUTSIDE RECORDS SUMMARY | 2025-02-06 12:46 | XMS_ITS | Encounter Summary ---
Author Organization [facility] Address [address] [place] [address] Care Team Providers Care Director Women Name Role Phone Elsewhere, Pcp Primary Care Provider Unavailabl e Reason for Referral * Outpatient (Routine) - Closed Specialty Diagnoses / Procedures Referred By Contac t Referred To Contact Diagnoses Malignant Neoplasm Of Pancreas Tail (HCC) Procedures ECG 12 Lead PA EKG 12 LEAD W I&R Skip Amaya M.D., Ph.D. 200 [place] [address] Phone: tel: fax: [facility] Referral ID Status Reason Start Date Expiration Date Visits Re quested Visits Authorized [id number] Closed 01/24/2025 04/26/2026 1 1 * Outpatient (Routine) - Closed Specialty Diagnoses / Procedures Referred By Contac t Referred To Contact Diagnoses Malignant Neoplasm Of Pancreas Tail (HCC) Procedures ECG 12 Lead PA EKG 12 LEAD W I&R Skip Amaya M.D., Ph.D. [address] [place] [phone] Phone: tel: fax: [facility] Referral ID Status Reason Start Date Expiration Date Visits Re quested Visits Authorized [id number] Closed 01/24/2025 04/26/2026 1 1 * Outpatient (Routine) - Closed Specialty Diagnoses / Procedures Referred By Contac t Referred To Contact Diagnoses Malignant Neoplasm Of Pancreas Tail (HCC) Procedures ECG 12 Lead PA EKG 12 LEAD W I&R Skip Amaya M.D., Ph.D. 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 Alcohol Use Standard Drinks/Week Comments Not Currently 1 (1 standard drink = 0.6 oz pur e alcohol) 0-1 drink per week [facility] Utilities Answer Date Recorded In the past 12 months has e [employer], gas, oil, or water [employer] threatened to shut off services in your [...] living situation today? I have a [facility] place to live 12/23/2024 Education Answer Date Recorded What is the highest level of school you have completed or the highest degree you have received? Master's degree (e.g., MA, MS, Katelyn, MEd, COMPLAINT EVALUATION OFFICER, KELLEE) 01/05/2025 Sex and Gender Information Value Date Recorded Sex Assigned at Male 09/10/2023 7:48 AM PLASTICS FITTER Legal Sex Male 10:11 PM PLASTICS FITTER Gender Identity Male 09/10/2023 7:48 AM PLASTICS FITTER Sexual Orientation Straight 09/10/2023 7: 48 AM PLASTICS FITTER documented as of this encounter Plan of Treatment Upcoming Encounters Date Type Department Care Team (Latest Contact Info) Description 02/08/2025 2:15 PM CDT Clinical Communication Virtual Review in [place], [place] [address] [place] [address] 02/09/2025 9:30 AM CDT Telemedicine Department of Oncology in [address] [phone] Jesica Wasserman M.B., B.Ch. [address] [place] [address] [phone] Cecily Nash L.I.C.S.W. [address] [place] [phone] 02/10/2025 12:00 PM CDT Lab Department of Infusion Therapy in [place], [place] [address] [place] [address] [phone] Skip Amaya M.D., Ph.D. [address] [place] [address] [phone] 02/10/2025 2:30 PM CDT Office Visit Department of Oncology in [place], [place] [address] [place] [phone] Rosenda Garza MPAS, P.A.-C. [address] [place] [phone] 02/11/2025 8:00 AM CDT Infusion Department of Oncology in [place], [place] [address] [place] [phone] Skip Amaya M.D., Ph.D. [address] [place] [phone] 02/23/2025 2:15 PM CDT Clinical Communication Virtual Review in [place], [place] 200 [place] [phone] 02/25/2025 8:30 AM CDT Lab Department of Oncology in [place], [place] [address] [place] [phone] Skip Amaya M.D., Ph.D. [address] [place] [phone] 02/25/2025 10:40 AM CDT Office Visit Department of Oncology in [address] [phone] Sandy Judge, KASH, C.N.P., M.S. [address] [place] [phone] 02/25/2025 11:30 AM CDT Infusion Department of Oncology in [address] [phone] Skip Amaya M.D., Ph.D. [address] [place] [phone] 03/04/2025 6:00 AM CDT Lab Department of Infusion Therapy in [place], [place] [address] [place] [phone] Skip Amaya M.D., Ph.D. [address] [place] [phone] 03/04/2025 8:10 AM CDT Office Visit Department of Oncology in [place], [place] [address] [place] [phone] Jie Shook P.A.-C. [address] [place] [phone] 03/04/2025 9:30 AM CDT Infusion Department of Oncology in [place], [place] [address] [place] [phone] Skip Amaya M.D., Ph.D. [address] [place] [phone] 03/10/2025 2:15 PM CDT Clinical Communication Virtual Review in [place], [place] 200 [place] [phone] 03/11/2025 6:00 AM CDT Lab Department of Laboratory Medicine and Pathology, [facility], in [address] [phone] Skip Amaya M.D., Ph.D. [address] [place] [phone] 03/11/2025 7:20 AM CDT Office Visit Department of Oncology in [address] [phone] Bipin Leal P.A.-C., M.S. [address] [place] [phone] 03/11/2025 8:00 AM CDT Infusion Department of Oncology in [place], [place] [address] [place] [phone] Skip Amaya M.D., Ph.D. [address] [place] [phone] 03/24/2025 7:30 AM CDT Appointment Department of Radiology, [facility], in [place], [place] [address] [place] [phone] Skip Amaya M.D., Ph.D. [address] [place] [phone] 03/24/2025 11:20 AM CDT Lab Department of Infusion Therapy in [place], [place] [address] [place] [phone] Skip Amaya M.D., Ph.D. [address] [place] [phone] 03/24/2025 1:30 PM CDT Office Visit Department of Oncology in [place], [place] [address] [place] [phone] Skip Amaya M.D., Ph.D. [address] [place] [phone] 03/25/2025 7:00 AM CDT Infusion Department of Oncology in [place], [place] [address] [place] [phone] Skip Amaya M.D., Ph.D. [address] [place] [phone] 03/29/2025 2:30 PM CDT Clinical Communication Virtual Review in [place], [place] 200 [place] [phone] 04/01/2025 6:00 AM CDT Lab Department of Infusion Therapy in [place], [place] [address] [place] [phone] Skip Amaya M.D., Ph.D. [address] [place] [phone] 04/01/2025 8:20 AM CDT Office Visit Department of Oncology in [place], [place] [address] [place] [phone] Precious Hill M.D., Ph.D. [address] [place] [phone] 04/01/2025 9:00 AM CDT Infusion Department of Oncology in [place], [place] [address] [place] [phone] Skip Amaya M.D., Ph.D. [address] [place] [phone] 04/07/2025 11:00 AM CDT Lab Department of Infusion Therapy in [address] [phone] Skip Amaya M.D., Ph.D. [address] [place] [phone] 04/07/2025 1:20 PM CDT Office Visit Department of Oncology in [address] [phone] Sandy Judge, KASH, C.N.P., M.S. [address] [place] [phone] 04/08/2025 7:00 AM CDT Infusion Department of Oncology in [address] [phone] Skip Amaya M.D., Ph.D. [address] [place] [phone] 04/21/2025 7:15 AM CDT Clinical Communication Virtual Review in [place], [place] 200 [place] [address] 04/22/2025 7:20 AM CDT Lab Department of Infusion Therapy in [place], [place] [address] [place] [phone] Skip Amaya M.D., Ph.D. [address] [place] [phone] 04/22/2025 9:20 AM CDT Office Visit Department of Oncology in [place], [place] [address] [place] [phone] Sandy Judge APRN, C.N.P., M.S. [address] [place] [phone] 04/22/2025 10:30 AM CDT Infusion Department of Oncology in [place], [place] [address] [place] [phone] Skip Amaya M.D., Ph.D. [address] [place] [phone] 04/29/2025 11:15 AM CDT Lab Department of Oncology in [address] [phone] Skip Amaya M.D., Ph.D. [address] [place] [phone] 04/29/2025 1:20 PM CDT Office Visit Department of Oncology in [place], [place] [address] [place] [phone] Sandy Judge APRN, C.N.P., M.S. [address] [place] [phone] 04/29/2025 2:00 PM CDT Infusion Department of Oncology in [place], [place] [address] [place] [address] Skip Amaya M.D., Ph.D. [address] [place] [phone] documented as of this encounter Goals Goal Patient Goal Type Associated Problems Recent Progress Patient-Stated? Author Autogenerat ed Goal Care Plan Autogenerated Problem No Hedy Lees R.N. documented as of this encounter Results * ECG 12 Lead (01/27/2025 12:49 PM CDT) Ventricular Rate ECG/Min 85 BPM MUSE PA Interval 132 ms MUSE QRSD Interval 88 ms MUSE QT Interval 392 ms MUSE QTC Interval 466 ms MUSE P [place] 59 degrees MUSE R [place] 41 degrees MUSE T Wave [place] 72 degrees MUSE 01/27/2025 12:4 9 PM [...] CDT) Ventricular Rate ECG/Min 87 BPM MUSE PA Interval 132 ms MUSE QRSD Interval 84 ms MUSE QT Interval 388 ms MUSE QTC Interval 466 ms MUSE P [place] 47 degrees MUSE R [place] 32 degrees MUSE T Wave [place] 71 degrees MUSE 01/27/2025 12:4 8 PM [...] CDT) Ventricular Rate ECG/Min 85 BPM MUSE PA Interval 138 ms MUSE QRSD Interval 84 ms MUSE QT Interval 382 ms MUSE QTC Interval 454 ms MUSE P [place] 49 degrees MUSE R [place] 35 degrees MUSE T Wave [place] 77 degrees MUSE 01/27/2025 12:4 7 PM [...] ECG ORDERABLES Final Re sult MUSE NA documented in this encounter Visit [...] as of this encounter Care Teams Director Women Relationship Specialty Start Date End Date Elsewhere, Pcp PCP - General Internal Medicine 09/09/23 documented as of this encounter
--- OUTSIDE RECORDS SUMMARY | 2025-02-06 12:46 | XMS_ITS | Encounter Summary ---
Author Organization [facility] Address [address] [place] [id number] Care Team Providers Care Maintenance Technician 3Rd Shift Name Role Phone Elsewhere, Pcp Primary Care Provider Unavailabl e Reason for Referral * Outpatient (Routine) Specialty Diagnoses / Procedures Referred By Meeta carlisle Referred To Contact Oncology Diagnoses Malignant Neoplasm Of Pancreas Tail (HCC) Skip Amaya M.D., Ph.D. 200 [place] [address] Phone: tel: fax: [facility] Referral ID Status Reason Start Date Expiration Date Visits Re quested Visits Authorized * Outpatient (Routine) Specialty Diagnoses / Procedures Referred By Meeta carlisle Referred To Contact Oncology Diagnoses Malignant Neoplasm Of Pancreas Tail (HCC) Skip Amaya M.D., Ph.D. [address] [place] [phone] Phone: tel: fax: [facility] Referral ID Status Reason Start Date Expiration Date Visits Re quested Visits Authorized * Outpatient (Routine) Specialty Diagnoses / Procedures Referred By Meeta carlisle Referred To Contact Oncology Diagnoses Malignant Neoplasm Of Pancreas Tail (HCC) Skip Amaya M.D., Ph.D. [address] [place] [phone] Phone: tel: fax: [facility] Referral ID Status Reason Start Date Expiration Date Visits Re quested Visits Authorized * Outpatient (Routine) Specialty Diagnoses / Procedures Referred By Contac t Referred To Contact Oncology Diagnoses Malignant Neoplasm Of Pancreas Tail (HCC) Skip Amaya M.D., Ph.D. [address] [place] [phone] Phone: tel: fax: [facility] Referral ID Status Reason Start Date Expiration Date Visits Re quested Visits Authorized * Outpatient (Routine) Specialty Diagnoses / Procedures Referred By Contac t Referred To Contact Oncology Diagnoses Malignant Neoplasm Of Pancreas Tail (HCC) Skip Amaya M.D., Ph.D. [address] [place] [phone] Phone: tel: fax: [facility] Referral ID Status Reason Start Date Expiration Date Visits Re quested Visits Authorized * Outpatient (Routine) Specialty Diagnoses / Procedures [facility] Referred To Contact Oncology Diagnoses Malignant Neoplasm Of Pancreas Tail (HCC) Skip Amaya M.D., Ph.D. [address] [place] [phone] Phone: tel: fax: [facility] Referral ID Status Reason Start Date Expiration Date Visits Re quested Visits Authorized * Outpatient (Routine) Specialty Diagnoses / Procedures Referred By Contac t Referred To Contact Oncology Diagnoses Malignant Neoplasm Of Pancreas Tail (HCC) Skip Amaya M.D., Ph.D. [address] [place] [phone] Phone: tel: fax: [facility] Referral ID Status Reason Start Date Expiration Date Visits Re quested Visits Authorized * Outpatient (Routine) Specialty Diagnoses / Procedures Referred By Contac t Referred To Contact Oncology Diagnoses Malignant Neoplasm Of Pancreas Tail (HCC) Skip Amaya M.D., Ph.D. [address] [place] [phone] Phone: tel: fax: [facility] Referral ID Status Reason Start Date Expiration Date Visits Re quested Visits Authorized * Outpatient (Routine) Specialty Diagnoses / Procedures Referred By Contac t Referred To Contact Oncology Diagnoses Malignant Neoplasm Of Pancreas Tail (HCC) Skip Amaya M.D., Ph.D. [address] [place] [phone] Phone: tel: fax: [facility] Referral ID Status Reason Start Date Expiration Date Visits Re quested Visits Authorized * Outpatient (Routine) Specialty Diagnoses / Procedures Referred By Contac t Referred To Contact Oncology Diagnoses Malignant Neoplasm Of Pancreas Tail (HCC) Skip Amaya M.D., Ph.D. [address] [place] [phone] Phone: tel: fax: [facility] Referral ID Status Reason Start Date Expiration Date Visits Re quested Visits Authorized * Outpatient (Routine) Specialty Diagnoses / Procedures Referred By Contac t Referred To Contact Oncology Diagnoses Malignant Neoplasm Of Pancreas Tail (HCC) Skip Amaya M.D., Ph.D. [address] [place] [phone] Phone: tel: fax: [facility] Referral ID Status Reason Start Date Expiration Date Visits Re quested Visits Authorized * Outpatient (Routine) Specialty Diagnoses / Procedures Referred By Contac t Referred To Contact Oncology Diagnoses Malignant Neoplasm Of Pancreas Tail (HCC) Skip Amaya M.D., Ph.D. [address] [place] [phone] Phone: tel: fax: [facility] Referral ID Status Reason Start Date Expiration Date Visits Re quested Visits Authorized * Specialty Diagnoses / Procedures Referred By Contac t Referred To Contact Diagnoses Malignant Neoplasm Of Pancreas Tail (HCC) kSip Amaya M.D., Ph.D. [address] [place] [phone] Phone: tel: fax: [facility] Referral ID Status Reason Start Date Expiration Date Visits Re quested Visits Authorized Encounter Details Date Type Department Care Team (Late st Contact Info) Description 01/21/2025 Orders Only Department of Oncology in [place], [place] [address] [place] [phone] Skip Amaya M.D., Ph.D. [address] [place] [phone] Malignant Neoplasm Of Pancreas Tail (HCC) (Primary [...] your living situation today? [facility] 12/23/2024 Education Answer Date Recorded What is the highest level of school you have completed or the highest degree you have received? Master's degree (e.g., MA, MS, Katelyn, MEd, DIE GRINDER, KELLEE) 01/05/2025 Sex and Gender Information Value Date Recorded Sex Assigned at Male 09/10/2023 7:48 AM ASSET PROTECTION REPRESENTATIVE Legal Sex Male 10:11 PM ASSET PROTECTION REPRESENTATIVE Gender Identity Male 09/10/2023 7:48 AM ASSET PROTECTION REPRESENTATIVE Sexual Orientation Straight 09/10/2023 7: 48 AM ASSET PROTECTION REPRESENTATIVE documented as of this encounter Plan of Treatment Upcoming Encounters Date Type Department Care Team (Latest Contact Info) Description 02/08/2025 2:15 PM CDT Clinical Communication Virtual Review in [place], [place] [address] [place] [phone] 02/09/2025 9:30 AM CDT Telemedicine Department of Oncology in [address] [phone] Jesica Wasserman M.B., B.Ch. [facility] [place] [address] Cecily Nash L.I.C.S.W. [facility] [place] [address] 02/10/2025 12:00 PM CDT Lab Department of Infusion Therapy in [place], [place] [address] [place] [phone] Skip Amaya M.D., Ph.D. [address] [place] [phone] 02/10/2025 2:30 PM CDT Office Visit Department of Oncology in [place], [place] [address] [place] [phone] Rosenda Garza MPAS, P.A.-C. [address] [place] [phone] 02/11/2025 8:00 AM CDT Infusion Department of Oncology in [place], [place] [address] [place] [phone] Skip Amaya M.D., Ph.D. [address] [place] [phone] 02/23/2025 2:15 PM CDT Clinical Communication Virtual Review in [place], [place] 200 [place] [phone] 02/25/2025 8:30 AM CDT Lab Department of Oncology in [place], [place] [address] [place] [phone] Skip Amaya M.D., Ph.D. [address] [place] [phone] 02/25/2025 10:40 AM CDT Office Visit Department of Oncology in [place], [place] [address] [place] [phone] Sandy Judge APRN, C.N.P., M.S. [address] [place] [phone] 02/25/2025 11:30 AM CDT Infusion Department of Oncology in [place], [place] [address] [place] [phone] Skip Amaya M.D., Ph.D. [address] [place] [phone] 03/04/2025 6:00 AM CDT Lab Department of Infusion Therapy in [place], [place] [address] [place] [phone] Skip Amaya M.D., Ph.D. [address] [place] [phone] 03/04/2025 8:10 AM CDT Office Visit Department of Oncology in [address] [phone] Jie Shook P.A.-C. [address] [place] [phone] 03/04/2025 9:30 AM CDT Infusion Department of Oncology in [place], [place] [address] [place] [phone] Skip Amaya M.D., Ph.D. [address] [place] [phone] 03/10/2025 2:15 PM CDT Clinical Communication Virtual Review in [address] [phone] 03/11/2025 6:00 AM CDT Lab Department of Laboratory Medicine and Pathology, [facility], in [place], [place] [address] [place] [phone] Skip Amaya M.D., Ph.D. [address] [place] [phone] 03/11/2025 7:20 AM CDT Office Visit Department of Oncology in [place], [place] [address] [place] [phone] Bipin Leal P.A.-C., M.S. [address] [place] [phone] 03/11/2025 8:00 AM CDT Infusion Department of Oncology in [place], [place] [address] [place] [phone] Skip Amaya M.D., Ph.D. [address] [place] [phone] 03/24/2025 7:30 AM CDT Appointment Department of Radiology, [facility], in [place], [place] [address] [place] [phone] Skip Amaya M.D., Ph.D. [address] [place] [phone] 03/24/2025 11:20 AM CDT Lab Department of Infusion Therapy in [place], [place] [address] [place] [phone] Skip Amaya M.D., Ph.D. [address] [place] [phone] 03/24/2025 1:30 PM CDT Office Visit Department of Oncology in [place], [place] [address] [place] [phone] Skip Amaya M.D., Ph.D. [address] [place] [phone] 03/25/2025 7:00 AM CDT Infusion Department of Oncology in [place], [place] [address] [place] [phone] Skip Amaya M.D., Ph.D. [address] [place] [phone] 03/29/2025 2:30 PM CDT Clinical Communication Virtual Review in [place], [place] 200 [place] [address] 04/01/2025 6:00 AM CDT Lab Department of Infusion Therapy in [place], [place] [address] [place] [phone] Skip Amaya M.D., Ph.D. [address] [place] [phone] 04/01/2025 8:20 AM CDT Office Visit Department of Oncology in [place], [place] [address] [place] [phone] Precious Hill M.D., Ph.D. [address] [place] [phone] 04/01/2025 9:00 AM CDT Infusion Department of Oncology in [place], [place] [address] [place] [phone] Skip Amaya M.D., Ph.D. [address] [place] [phone] 04/07/2025 11:00 AM CDT Lab Department of Infusion Therapy in [place], [place] [address] [place] [phone] Skip Amaya M.D., Ph.D. [address] [place] [phone] 04/07/2025 1:20 PM CDT Office Visit Department of Oncology in [place], [place] [address] [place] [phone] Sandy Judge APRN, C.N.P., M.S. [address] [place] [phone] 04/08/2025 7:00 AM CDT Infusion Department of Oncology in [place], [place] [address] [place] [phone] Skip Amaya M.D., Ph.D. [address] [place] [phone] 04/21/2025 7:15 AM CDT Clinical Communication Virtual Review in [place], [place] 200 [place] [phone] 04/22/2025 7:20 AM CDT Lab Department of Infusion Therapy in [place], [place] [address] [place] [phone] Skip Amaya M.D., Ph.D. [address] [place] [phone] 04/22/2025 9:20 AM CDT Office Visit Department of Oncology in [place], [place] [address] [place] [phone] Sandy Judge APRN, C.N.P., M.S. [address] [place] [phone] 04/22/2025 10:30 AM CDT Infusion Department of Oncology in [place], [place] [address] [place] [phone] Skip Amaya M.D., Ph.D. [address] [place] [phone] 04/29/2025 11:15 AM CDT Lab Department of Oncology in [place], [place] [address] [place] [phone] Skip Amaya M.D., Ph.D. [address] [place] [phone] 04/29/2025 1:20 PM CDT Office Visit Department of Oncology in [place], [place] [address] [place] [phone] Sandy Judge, KASH, C.N.P., M.S. [address] [place] [phone] 04/29/2025 2:00 PM CDT Infusion Department of Oncology in [place], [place] [address] [place] [phone] Skip Amaya M.D., Ph.D. [address] [place] [phone] Scheduled Orders Name Type Priority Associated Diagnoses [...] Frankel R.N. documented as of this encounter Results * LD (Lactate Dehydrogenase) (02/04/2025 7:02 AM CDT) [facility] LD 139 122 - 222 U/L 02/04/2025 8:10 AM CDT DTL Blood (Blood, Venous) 02/04/2025 7:02 AM CDT 02/04/2025 7:29 AM CDT us Skip Amaya M.D., Ph.D. LAB BLOOD NON ADD-ON Fin al Result Performing Organization Address City/[facility]/ZIP Co de Phone Number [facility] [place] [address] [place] [address] * Phosphorus Inorganic (02/04/2025 7:02 AM CDT) [facility] Phosphorus (Inorganic), S 3.1 2.5 - 4.5 mg/dL 02/04/2025 8:01 AM CDT DTL Blood (Blood, Venous) 02/04/2025 7:02 AM CDT 02/04/2025 7:17 AM CDT us Skip Amaya M.D., Ph.D. LAB BLOOD ADD-ON Final R esult Performing Organization Address City/[facility]/ZIP Co de Phone Number [facility] [place] [address] 200 [place] [address] * Magnesium (02/04/2025 7:02 AM CDT) Magnesium, S 2.0 1.7 - 2.3 mg/dL 02/04/2025 8:01 AM CDT DTL Blood (Blood, Venous) 02/04/2025 7:02 AM CDT 02/04/2025 7:17 AM CDT Skip Amaya M.D., Ph.D. LAB BLOOD ADD-ON Final R esult [facility] [place] [address] [place] [address], [facility] [place] [facility] [address] [place] [address] * (ABNORMAL) Comprehensive Metabolic Panel (02/04/2025 7:02 AM CDT) Potassium, S 4.6 3.6 - 5.2 mmol/L [...] Ph.D. LAB BLOOD ADD-ON Final R esult [facility] [place] [address] [place] [address], [facility] [place] [facility] 200 [place] [address] * (ABNORMAL) CBC with Differential, Blood (02/04/2025 [...] Ph.D. LAB BLOOD ADD-ON Final R esult [facility] [place] 200 [place] [address], [facility] [place] DTL [facility] 200 [place] [address] [facility] 200 [place] [address] * (ABNORMAL) Carbohydrate Antigen 19-9 (CA 19-9) (01/27/2025 10:55 AM CDT) [facility] Carbohydrate Ag 19-9, S 19386(H) <35 U/mL 01/28/2025 12:50 PM CDT [facility] Comment: ----ADDITIONAL INFORMATION---- The testing method is an immunoenzymatic assay manufactured by [employer] and performed on the [employer] DxI 800. Values obtained with different assay methods or kits may be different and cannot be used interchangeably. Test results cannot be interpreted as absolute evidence for the presence or absence of malignant disease. Blood (Blood, Venous) 01/27/2025 10:55 AM CDT 01/28/2025 11:37 AM CDT us Skip Amaya M.D., Ph.D. LAB BLOOD ADD-ON [facility] Performing Organization Address [facility]/ZIP Co de Phone Number [facility] [address] [place] [address] [facility] [address] [place] [address] * APTT (Activated Partial Thromboplastin Time) (01/27/2025 10:55 AM CDT) Activated Partial Thrombopl Time, P 26 25 - 37 sec 01/27/2025 11:27 AM CDT DTL Blood (Blood, Venous) 01/27/2025 10:55 AM CDT 01/27/2025 11:07 AM CDT us Skip Amaya M.D., Ph.D. LAB BLOOD ADD-ON Final [facility] Performing Organization Address [facility] Co de Phone Number [facility] [place] 200 [place] [address], [facility] [place] [address] [address] * Prothrombin Time (PT) (01/27/2025 10:55 AM CDT) Prothrombin Time, P 11.4 9.4 - 12.5 [...] Ph.D. LAB BLOOD ADD-ON Final R esult [facility] [place] [address] 200 [place] [address] * LD (Lactate Dehydrogenase) (01/27/2025 10:55 AM CDT) [facility] LD 146 122 - 222 U/L 01/27/2025 12:06 PM CDT DTL Blood (Blood, Venous) 01/27/2025 10:55 AM CDT 01/27/2025 11:40 AM CDT Skip Amaya M.D., Ph.D. LAB BLOOD NON ADD-ON Fin al Result Performing Organization Address City/[facility]/ZIP Co de Phone Number [facility] [place] [address] 200 [place] [address] * Phosphorus Inorganic (01/27/2025 10:55 AM CDT) [facility] Phosphorus (Inorganic), S 3.0 2.5 - 4.5 mg/dL 01/27/2025 11:50 AM CDT DT Blood (Blood, Venous) 01/27/2025 10:55 AM CDT 01/27/2025 11:23 AM CDT Skip Amaya M.D., Ph.D. LAB BLOOD ADD-ON Final R esult [facility] [place] 200 [place] [address] * Magnesium (01/27/2025 10:55 AM CDT) [facility] Magnesium, S 2.2 1.7 - 2.3 mg/dL 01/27/2025 11:50 AM CDT DTL Blood (Blood, Venous) 01/27/2025 10:55 AM CDT 01/27/2025 11:23 AM CDT Skip Amaya M.D., Ph.D. LAB BLOOD ADD-ON Final R esult [facility] [address] [place] [address], [facility] [place] DTL [facility] [address] [place] [address] * (ABNORMAL) Comprehensive Metabolic Panel (01/27/2025 10:55 [...] Ph.D. LAB BLOOD ADD-ON Final R esult [place] [address] [place] [address], [facility] [place] [facility] [address] [place] [address] * (ABNORMAL) CBC with Differential, Blood (01/27/2025 [...] Ph.D. 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
--- OUTSIDE RECORDS SUMMARY | 2025-02-06 12:46 | XMS_ITS | Encounter Summary ---
[facility] Organization [facility] Address [address] [place] [address] Care Team Providers Care Heel Attacher Name Role Phone Elsewhere, Pcp Primary Care Provider Unavailabl e Encounter Details Date Type Department Care Team (Late st Contact Info) Description 01/21/2025 Orders Only Department of Oncology in [place], [place] [address] [place] [address] Lissett Gordillo [address] [place] [address] Social History Tobacco Use Types Packs/Day Years Used Date Smoking Tobacco: Never Passive Smoke Exposure: Past Smokeless Tobacco: Never Passive Exposure Comments:Ch ildhood exposure. Alcohol Use Standard Drinks/Week Comments Not Currently 1 (1 standard drink = 0.6 oz pur e alcohol) 0-1 drink per week [facility] Utilities Answer Date Recorded In the past 12 months has e [employer], gas, oil, or water [employer] threatened to shut off services in your [...] [facility] place to live 12/23/2024 Education Answer Date Recorded What is the highest level of school you have completed or the highest degree you have received? Master's degree (e.g., MA, MS, Katelyn, MEd, CASE WORK AIDE, KELLEE) 01/05/2025 Sex and Gender Information Value Date Recorded Sex Assigned at Male 09/10/2023 7:48 AM HUB BANDER Legal Sex Male 10:11 PM HUB BANDER Gender Identity Male 09/10/2023 7:48 AM HUB BANDER Sexual Orientation Straight 09/10/2023 7: 48 AM HUB BANDER documented as of this encounter Plan of Treatment Upcoming Encounters Date Type Department Care Team (Latest Contact Info) Description 02/08/2025 2:15 PM CDT Clinical Communication Virtual Review in [place], [place] [address] [place] [address] 02/09/2025 9:30 AM CDT Telemedicine Department of Oncology in [address] [phone] Jesica Wasserman M.B., B.Ch. [address] [place] [phone] Cecily Nash, WeroI.C.S.W. [address] [place] [phone] 02/10/2025 12:00 PM CDT Lab Department of Infusion Therapy in [place], [place] [address] [place] [phone] Skip Amaya M.D., Ph.D. [address] [place] [phone] 02/10/2025 2:30 PM CDT Office Visit Department of Oncology in [place], [place] [address] [place] [phone] Rosenda Garza MPAS, P.A.-C. [address] [place] [phone] 02/11/2025 8:00 AM CDT Infusion Department of Oncology in [place], [place] [address] [place] [phone] Skip Amaya M.D., Ph.D. [address] [place] [phone] 02/23/2025 2:15 PM CDT Clinical Communication Virtual Review in [address] [phone] 02/25/2025 8:30 AM CDT Lab Department of Oncology in [address] [phone] Skip Amaya M.D., Ph.D. [address] [place] [phone] 02/25/2025 10:40 AM CDT Office Visit Department of Oncology in [address] [phone] Sandy Judge, KASH, C.N.P., M.S. [address] [place] [phone] 02/25/2025 11:30 AM CDT Infusion Department of Oncology in [address] [address] Skip Amaya M.D., Ph.D. [address] [place] [phone] 03/04/2025 6:00 AM CDT Lab Department of Infusion Therapy in [place], [place] [address] [place] [phone] Skip Amaya M.D., Ph.D. [address] [place] [phone] 03/04/2025 8:10 AM CDT Office Visit Department of Oncology in [place], [place] [address] [place] [phone] Jie Shook P.A.-C. [address] [place] [phone] 03/04/2025 9:30 AM CDT Infusion Department of Oncology in [place], [place] [address] [place] [phone] Skip Amaya M.D., Ph.D. [address] [place] [phone] 03/10/2025 2:15 PM CDT Clinical Communication Virtual Review in [place], [place] 200 [place] [address] 03/11/2025 6:00 AM CDT Lab Department of Laboratory Medicine and Pathology, [facility] in [address] [phone] Skip Amaya M.D., Ph.D. [address] [place] [phone] 03/11/2025 7:20 AM CDT Office Visit Department of Oncology in [address] [phone] Bipin Leal P.A.-C., M.S. [address] [place] [phone] 03/11/2025 8:00 AM CDT Infusion Department of Oncology in [place], [place] [address] [place] [phone] Skip Amaya M.D., Ph.D. [address] [place] [phone] 03/24/2025 7:30 AM CDT Appointment Department of Radiology, [facility], in [place], [place] [address] [place] [phone] Skip Amaya M.D., Ph.D. [address] [place] [phone] 03/24/2025 11:20 AM CDT Lab Department of Infusion Therapy in [place], [place] [address] [place] [phone] Skip Amaya M.D., Ph.D. [address] [place] [phone] 03/24/2025 1:30 PM CDT Office Visit Department of Oncology in [place], [place] [address] [place] [phone] Skip Amaya M.D., Ph.D. [address] [place] [phone] 03/25/2025 7:00 AM CDT Infusion Department of Oncology in [place], [place] [address] [place] [phone] Skip Amaya M.D., Ph.D. [address] [place] [phone] 03/29/2025 2:30 PM CDT Clinical Communication Virtual Review in [place], [place] 200 [place] [address] 04/01/2025 6:00 AM CDT Lab Department of Infusion Therapy in [place], [place] [address] [place] [phone] Skip Amaya M.D., Ph.D. [address] [place] [phone] 04/01/2025 8:20 AM CDT Office Visit Department of Oncology in [place], [place] [address] [place] [phone] Precious Hill M.D., Ph.D. [address] [place] [phone] 04/01/2025 9:00 AM CDT Infusion Department of Oncology in [place], [place] [address] [place] [phone] Skip Amaya M.D., Ph.D. [address] [place] [phone] 04/07/2025 11:00 AM CDT Lab Department of Infusion Therapy in [address] [phone] Skip Amaya M.D., Ph.D. [address] [place] [phone] 04/07/2025 1:20 PM CDT Office Visit Department of Oncology in [address] [phone] Sandy Judge APRN, C.N.P., M.S. [address] [place] [phone] 04/08/2025 7:00 AM CDT Infusion Department of Oncology in [address] [address] Skip Amaya M.D., Ph.D. [address] [place] [phone] 04/21/2025 7:15 AM CDT Clinical Communication Virtual Review in [place], [place] 200 [place] [address] 04/22/2025 7:20 AM CDT Lab Department of Infusion Therapy in [place], [place] [address] [place] [phone] Skip Amaya M.D., Ph.D. [address] [place] [phone] 04/22/2025 9:20 AM CDT Office Visit Department of Oncology in [place], [place] [address] [place] [phone] Sandy Judge APRN, C.N.P., M.S. [address] [place] [phone] 04/22/2025 10:30 AM CDT Infusion Department of Oncology in [place], [place] [address] [place] [phone] Skip Amaya M.D., Ph.D. [address] [place] [phone] 04/29/2025 11:15 AM CDT Lab Department of Oncology in [place], [place] [address] [place] [phone] Skip Amaya M.D., Ph.D. [address] [place] [phone] 04/29/2025 1:20 PM CDT Office Visit Department of Oncology in [place], [place] [address] [place] [phone] Sandy Judge APRN, C.N.P., M.S. [address] [place] [phone] 04/29/2025 2:00 PM CDT Infusion Department of Oncology in [place], [place] [address] [place] [address] Skip Amaya M.D., Ph.D. [address] [place] [address] documented as of this encounter Goals Goal [...] documented as of this encounter Care Teams Heel Attacher Relationship Specialty Start Date End Date Elsewhere, Pcp PCP - General Internal Medicine 09/09/23 documented as of this encounter
--- OUTSIDE RECORDS SUMMARY | 2025-02-06 12:46 | XMS_ITS | Encounter Summary ---
Author Organization [facility] Address [address] [place] [address] Care Team Providers Care Director [employer] Name Role Phone Elsewhere, Pcp Primary Care Provider Unavailabl e Reason for Visit * Reason Onset Date Comments Pancreas 12/22/2024 Pre-Visit Angie saldana Encounter Details Date Type Department Care Team (Latest Contact Info) Description 12/22/2024 Clinical Communication Division of Gastroenterology in [place], [place] [address] [place] [address] Prescheduling, Provider Pancreas (Pre-Visit Scheduling) Social History Tobacco Use Types Packs/Day Years Used Date Smoking Tobacco: Never Passive Smoke Exposure: Past Smokeless Tobacco: Never Passive Exposure Comments:Ch ildhood exposure. Alcohol Use Standard Drinks/Week Comments Not Currently 1 (1 standard drink = 0.6 oz pur e alcohol) 0-1 drink per week [facility] Utilities Answer Date Recorded In the past 12 months has e [employer], gas, oil, or water [employer] threatened to shut off services in your [...] Sex Assigned at Male 09/10/2023 7:48 AM TOUR LEADER Legal Sex Male 10:11 PM TOUR LEADER Gender Identity Male 09/10/2023 7:48 AM TOUR LEADER Sexual Orientation Straight 09/10/2023 7: 48 AM TOUR LEADER documented as of this encounter Plan of Treatment Upcoming Encounters Date Type Department Care Team (Latest Contact Info) Description 02/08/2025 2:15 PM CDT Clinical Communication Virtual Review in [place], [place] [address] [place] [address] 02/09/2025 9:30 AM CDT Telemedicine Department of Oncology in [address] [phone] Jesica Wasserman M.B., B.Ch. [address] [place] [phone] Cecily Nahs L.I.C.SJustynW. [address] [place] [phone] 02/10/2025 12:00 PM CDT Lab Department of Infusion Therapy in [place], [place] [address] [place] [phone] Skip Amaya M.D., Ph.D. [address] [place] [phone] 02/10/2025 2:30 PM CDT Office Visit Department of Oncology in [place], [place] [address] [place] [phone] Rosenda Garza, MORENA, P.A.-C. [address] [place] [phone] 02/11/2025 8:00 AM CDT Infusion Department of Oncology in [place], [place] [address] [place] [phone] Skip Amaya M.D., Ph.D. [address] [place] [phone] 02/23/2025 2:15 PM CDT Clinical Communication Virtual Review in [place], [place] 200 [place] [address] 02/25/2025 8:30 AM CDT Lab Department of Oncology in [place], [place] [address] [place] [phone] Skip Amaya M.D., Ph.D. [address] [place] [phone] 02/25/2025 10:40 AM CDT Office Visit Department of Oncology in [address] [phone] Sandy Judge, KASH, C.N.P., M.S. [address] [place] [phone] 02/25/2025 11:30 AM CDT Infusion Department of Oncology in [place], [place] [address] [place] [phone] Skip Amaya M.D., Ph.D. [address] [place] [phone] 03/04/2025 6:00 AM CDT Lab Department of Infusion Therapy in [address] [address] Skip Amaya M.D., Ph.D. [address] [place] [phone] 03/04/2025 8:10 AM CDT Office Visit Department of Oncology in [place], [place] [address] [place] [phone] Jie Shook P.A.-C. [address] [place] [phone] 03/04/2025 9:30 AM CDT Infusion Department of Oncology in [place], [place] [address] [place] [phone] Skip Amaya M.D., Ph.D. [address] [place] [phone] 03/10/2025 2:15 PM CDT Clinical Communication Virtual Review in [place], [place] 200 [place] [address] 03/11/2025 6:00 AM CDT Lab Department of Laboratory Medicine and Pathology, [facility], in [address] [address] Skip Amaya M.D., Ph.D. [address] [place] [phone] 03/11/2025 7:20 AM CDT Office Visit Department of Oncology in [address] [address] Bipin Leal P.A.-C., M.S. [address] [place] [phone] 03/11/2025 8:00 AM CDT Infusion Department of Oncology in [address] [address] Skip Amaya M.D., Ph.D. [address] [place] [phone] 03/24/2025 7:30 AM CDT Appointment Department of Radiology, [facility], in [place], [place] [address] [place] [phone] Skip Amaya M.D., Ph.D. [address] [place] [phone] 03/24/2025 11:20 AM CDT Lab Department of Infusion Therapy in [place], [place] [address] [place] [phone] Skip Amaya M.D., Ph.D. [address] [place] [phone] 03/24/2025 1:30 PM CDT Office Visit Department of Oncology in [place], [place] [address] [place] [phone] Skip Amaya M.D., Ph.D. [address] [place] [phone] 03/25/2025 7:00 AM CDT Infusion Department of Oncology in [place], [place] [address] [place] [phone] Skip Amaya M.D., Ph.D. [address] [place] [phone] 03/29/2025 2:30 PM CDT Clinical Communication Virtual Review in [place], [place] 200 [place] [address] 04/01/2025 6:00 AM CDT Lab Department of Infusion Therapy in [address] [address] Skip Amaya M.D., Ph.D. [address] [place] [phone] 04/01/2025 8:20 AM CDT Office Visit Department of Oncology in [place], [place] [address] [place] [phone] Precious Hill M.D., Ph.D. [address] [place] [phone] 04/01/2025 9:00 AM CDT Infusion Department of Oncology in [address] [address] Skip Amaya M.D., Ph.D. [address] [place] [phone] 04/07/2025 11:00 AM CDT Lab Department of Infusion Therapy in [address] [phone] Skip Amaya M.D., Ph.D. [address] [place] [phone] 04/07/2025 1:20 PM CDT Office Visit Department of Oncology in [address] [phone] Sandy Judge, KASH, C.N.P., M.S. [address] [place] [phone] 04/08/2025 7:00 AM CDT Infusion Department of Oncology in [address] [address] Skip Amaya M.D., Ph.D. [address] [place] [phone] 04/21/2025 7:15 AM CDT Clinical Communication Virtual Review in [place], [place] 200 [place] [address] 04/22/2025 7:20 AM CDT Lab Department of Infusion Therapy in [place], [place] [address] [place] [phone] Skip Amaya M.D., Ph.D. [address] [place] [phone] 04/22/2025 9:20 AM CDT Office Visit Department of Oncology in [place], [place] [address] [place] [phone] Sandy Judge APRN, C.N.P., M.S. [address] [place] [phone] 04/22/2025 10:30 AM CDT Infusion Department of Oncology in [place], [place] [address] [place] [phone] Skip Amaya M.D., Ph.D. [address] [place] [phone] 04/29/2025 11:15 AM CDT Lab Department of Oncology in [place], [place] [address] [place] [phone] Skip Amaya M.D., Ph.D. [address] [place] [phone] 04/29/2025 1:20 PM CDT Office Visit Department of Oncology in [place], [place] [address] [place] [phone] Sandy Judge APRN, C.N.P., M.S. [address] [place] [phone] 04/29/2025 2:00 PM CDT Infusion Department of Oncology in [place], [place] [address] [place] [phone] Skip Amaya M.D., Ph.D. [address] [place] [phone] documented as of this encounter Goals Goal Patient Goal Type Associated Problems Recent Progress Patient-Stated? Author Autogenerat ed Goal Care Plan Autogenerated Problem No Hedy Lees, RJustynN. documented as of this encounter Visit Diagnoses Not on filedocumented in this encounter Additional Health Concerns Active Problems Noted Date Diagnosed Date Autogenerated Problem 11/16/2024 documented as of this encounter Care Teams Director [employer] Relationship Specialty Start Date End Date Elsewhere, Pcp PCP - General Internal Medicine 09/09/23 documented as of this encounter
--- OUTSIDE RECORDS SUMMARY | 2025-02-06 12:47 | XMS_ITS | Encounter Summary ---
Author Organization [facility] Address [address] [place] [address] Care Team Providers Care Shear Setter Name Role Phone Elsewhere, Pcp Primary Care Provider Unavailabl e Encounter Details Date Type Department Care Team (Latest Contact Info) Description 01/05/2025 Results Follow-Up Division of Gastroenterology in [place], [place] [address] [place] [address] Drea Means APRN, C.N.P., D.N.P. [address] [place] [phone] Cytology Fine Needle Aspiration (including core biopsies) Social History Tobacco Use Types Packs/Day Years Used Date Smoking Tobacco: Never Passive Smoke Exposure: Past Smokeless Tobacco: Never Passive Exposure Comments:Ch ildhood exposure. Alcohol Use Standard Drinks/Week Comments Not Currently 1 (1 standard drink = 0.6 oz pur e alcohol) 0-1 drink per week [facility] Utilities Answer Date Recorded In the past 12 months has [employer], gas, oil, or water company threatened [...] your living situation today? I have a [facility] place to live 12/23/2024 Education Answer Date Recorded What is the highest level of school you have completed or the highest degree you have received? Master's degree (e.g., MA, MS, Katelyn, MEd, PHP SOFTWARE ENGINEER, KELLEE) 01/05/2025 Sex and Gender Information Value Date Recorded Sex Assigned at Male 09/10/2023 7:48 AM MANAGER PORT Legal Sex Male 10:11 PM MANAGER PORT Gender Identity Male 09/10/2023 7:48 AM MANAGER PORT Sexual Orientation Straight 09/10/2023 7: 48 AM MANAGER PORT documented as of this encounter Plan of Treatment Upcoming Encounters Date Type Department Care Team (Latest Contact Info) Description 02/08/2025 2:15 PM CDT Clinical Communication Virtual Review in [place], [place] 200 [place] [phone] 02/09/2025 9:30 AM CDT Telemedicine Department of Oncology in [address] [address] Jesica Wasserman M.B., B.Ch. [address] [place] [phone] Cecily Nash L.I.CJustynSJustynW. [address] [place] [phone] 02/10/2025 12:00 PM CDT Lab Department of Infusion Therapy in [address] [phone] Skip Amaya M.D., Ph.D. [address] [place] [phone] 02/10/2025 2:30 PM CDT Office Visit Department of Oncology in [place], [place] [address] [place] [phone] Rosenda Garza MPAS, P.A.-C. [address] [place] [phone] 02/11/2025 8:00 AM CDT Infusion Department of Oncology in [place], [place] [address] [place] [phone] Skip Amaya M.D., Ph.D. [address] [place] [phone] 02/23/2025 2:15 PM CDT Clinical Communication Virtual Review in [place], [place] 200 [place] [address] 02/25/2025 8:30 AM CDT Lab Department of Oncology in [address] [address] Skip Amaya M.D., Ph.D. [address] [place] [phone] 02/25/2025 10:40 AM CDT Office Visit Department of Oncology in [place], [place] [address] [place] [phone] Sandy Judge APRN, C.N.P., M.S. [address] [place] [phone] 02/25/2025 11:30 AM CDT Infusion Department of Oncology in [place], [place] [address] [place] [phone] Skip Amaya M.D., Ph.D. [address] [place] [phone] 03/04/2025 6:00 AM CDT Lab Department of Infusion Therapy in [place], [place] [address] [place] [phone] Skip Amaya M.D., Ph.D. [address] [place] [phone] 03/04/2025 8:10 AM CDT Office Visit Department of Oncology in [address] [phone] Jie Shook P.A.-C. [address] [place] [phone] 03/04/2025 9:30 AM CDT Infusion Department of Oncology in [address] [address] Skip Amaya M.D., Ph.D. [address] [place] [phone] 03/10/2025 2:15 PM CDT Clinical Communication Virtual Review in [place], [place] 200 [place] [address] 03/11/2025 6:00 AM CDT Lab Department of Laboratory Medicine and Pathology, [facility], in [address] [address] Skip Amaya M.D., Ph.D. [address] [place] [phone] 03/11/2025 7:20 AM CDT Office Visit Department of Oncology in [address] [address] Bipin Leal P.A.-C., M.S. [address] [place] [phone] 03/11/2025 8:00 AM CDT Infusion Department of Oncology in [place], [place] [address] [place] [phone] Skip Amaya M.D., Ph.D. [address] [place] [phone] 03/24/2025 7:30 AM CDT Appointment Department of Radiology, [facility], in [place], [place] [address] [place] [phone] Skip Amaya M.D., Ph.D. [address] [place] [phone] 03/24/2025 11:20 AM CDT Lab Department of Infusion Therapy in [place], [place] [address] [place] [phone] Skip Amaya M.D., Ph.D. [address] [place] [phone] 03/24/2025 1:30 PM CDT Office Visit Department of Oncology in [place], [place] [address] [place] [phone] Skip Amaya M.D., Ph.D. [address] [place] [phone] 03/25/2025 7:00 AM CDT Infusion Department of Oncology in [place], [place] [address] [place] [phone] Skip Amaya M.D., Ph.D. [address] [place] [phone] 03/29/2025 2:30 PM CDT Clinical Communication Virtual Review in [place], [place] 200 [place] [address] 04/01/2025 6:00 AM CDT Lab Department of Infusion Therapy in [place], [place] [address] [place] [phone] Skip Amaya M.D., Ph.D. [address] [place] [phone] 04/01/2025 8:20 AM CDT Office Visit Department of Oncology in [address] [phone] Precious Hill M.D., Ph.D. [address] [place] [phone] 04/01/2025 9:00 AM CDT Infusion Department of Oncology in [address] [address] Skip Amaya M.D., Ph.D. [address] [place] [phone] 04/07/2025 11:00 AM CDT Lab Department of Infusion Therapy in [address] [address] Skip Amaya M.D., Ph.D. [address] [place] [phone] 04/07/2025 1:20 PM CDT Office Visit Department of Oncology in [address] [phone] Sandy Judge APRN, C.N.P., M.S. [address] [place] [phone] 04/08/2025 7:00 AM CDT Infusion Department of Oncology in [address] [address] Skip Amaya M.D., Ph.D. [address] [place] [phone] 04/21/2025 7:15 AM CDT Clinical Communication Virtual Review in [place], [place] 200 [place] [address] 04/22/2025 7:20 AM CDT Lab Department of Infusion Therapy in [place], [place] [address] [place] [phone] Skip Amaya M.D., Ph.D. [address] [place] [phone] 04/22/2025 9:20 AM CDT Office Visit Department of Oncology in [place], [place] [address] [place] [phone] Sandy Judge APRN, C.N.P., M.S. [address] [place] [phone] 04/22/2025 10:30 AM CDT Infusion Department of Oncology in [place], [place] [address] [place] [phone] Skip Amaya M.D., Ph.D. [address] [place] [phone] 04/29/2025 11:15 AM CDT Lab Department of Oncology in [place], [place] [address] [place] [phone] Skip Amaya M.D., Ph.D. [address] [place] [phone] 04/29/2025 1:20 PM CDT Office Visit Department of Oncology in [place], [place] [address] [place] [phone] Sandy Judge APRN, C.N.P., M.S. [address] [place] [phone] 04/29/2025 2:00 PM CDT Infusion Department of Oncology in [place], [place] [address] [place] [address] Skip Amaya M.D., Ph.D. [address] [place] [address] documented as of this encounter Goals Goal [...] documented as of this encounter Care Teams Shear Setter Relationship Specialty Start Date End Date Elsewhere, Pcp PCP - General Internal Medicine 09/09/23 documented as of this encounter
--- OUTSIDE RECORDS SUMMARY | 2025-02-06 12:47 | XMS_ITS | Encounter Summary ---
Author Organization [facility] Address [address] [place] [phone] Care Team Providers Care Glass Beveler Name Role Phone Elsewhere, Pcp Primary Care Provider Unavailabl e Encounter Details Date Type Department Care Team (Late st Contact Info) Description 01/30/2025 Clinical Communication Department of Oncology in [place], [place] [address] [place] [address] Jurgen Flores Jr., M.D., M.B.A. [address] [place] [phone] Social History Tobacco Use Types Packs/Day Years Used Date Smoking Tobacco: Never Passive Smoke Exposure: Past Smokeless Tobacco: Never Passive Exposure Comments:Ch ildhood exposure. Alcohol Use Standard Drinks/Week Comments Not Currently 1 (1 standard drink = 0.6 oz pur e alcohol) 0-1 drink per week [facility] Utilities Answer Date Recorded In the past 12 months has [employer] electric, gas, oil, or water company threatened [...] a [facility] place to live 12/23/2024 Education Answer Date Recorded What is the highest level of school you have completed or the highest degree you have received? Master's degree (e.g., MA, MS, Katelyn, MEd, SEW OUT OPERATOR, KELLEE) 01/05/2025 Sex and Gender Information Value Date Recorded Sex Assigned at Male 09/10/2023 7:48 AM CORPORATE TRAVEL COUNSELOR Legal Sex Male 10:11 PM CORPORATE TRAVEL COUNSELOR Gender Identity Male 09/10/2023 7:48 AM CORPORATE TRAVEL COUNSELOR Sexual Orientation Straight 09/10/2023 7: 48 AM CORPORATE TRAVEL COUNSELOR documented as of this encounter Miscellaneous Notes [...] evaluation. They would prefer to come to [place] as he is about 45 miles away. They will present to the ER here and I will also notify his clinical trial team. documented in this encounter Plan of Treatment Upcoming Encounters Date Type Department Care Team (Latest Contact Info) Description 02/08/2025 2:15 PM CDT Clinical Communication Virtual Review in [place], [place] 200 [place] [address] 02/09/2025 9:30 AM CDT Telemedicine Department of Oncology in [place], [place] [address] [place] [address] Jesica Wasserman M.B., B.Ch. [facility] [place] [address] Cecily Nash L.I.C.S.W. [address] [place] [address] 02/10/2025 12:00 PM CDT Lab Department of Infusion Therapy in [place], [place] [address] [place] [phone] Skip Amaya M.D., Ph.D. [address] [place] [phone] 02/10/2025 2:30 PM CDT Office Visit Department of Oncology in [place], [place] [address] [place] [phone] Rosenda Garza MPAS, P.A.-C. [address] [place] [phone] 02/11/2025 8:00 AM CDT Infusion Department of Oncology in [place], [place] [address] [place] [phone] Skip Amaya M.D., Ph.D. [address] [place] [phone] 02/23/2025 2:15 PM CDT Clinical Communication Virtual Review in [place], [place] 200 [place] [address] 02/25/2025 8:30 AM CDT Lab Department of Oncology in [place], [place] [address] [place] [phone] Skip Amaya M.D., Ph.D. [address] [place] [phone] 02/25/2025 10:40 AM CDT Office Visit Department of Oncology in [place], [place] [address] [place] [phone] Sandy Judge APRN, C.N.P., M.S. [address] [place] [phone] 02/25/2025 11:30 AM CDT Infusion Department of Oncology in [place], [place] [address] [place] [phone] Skip Amaya M.D., Ph.D. [address] [place] [phone] 03/04/2025 6:00 AM CDT Lab Department of Infusion Therapy in [place], [place] [address] [place] [phone] Skip Amaya M.D., Ph.D. [address] [place] [phone] 03/04/2025 8:10 AM CDT Office Visit Department of Oncology in [place], [place] [address] [place] [phone] Jie Shook P.A.-C. [address] [place] [phone] 03/04/2025 9:30 AM CDT Infusion Department of Oncology in [place], [place] [address] [place] [phone] Skip Amaya M.D., Ph.D. [address] [place] [phone] 03/10/2025 2:15 PM CDT Clinical Communication Virtual Review in [place], [place] 200 [place] [address] 03/11/2025 6:00 AM CDT Lab Department of Laboratory Medicine and Pathology, [facility] in [place], [place] [address] [place] [phone] Skip Amaya M.D., Ph.D. [address] [place] [phone] 03/11/2025 7:20 AM CDT Office Visit Department of Oncology in [address] [phone] Bipin Leal P.A.-C., M.S. [address] [place] [phone] 03/11/2025 8:00 AM CDT Infusion Department of Oncology in [address] [phone] Skip Amaya M.D., Ph.D. [address] [place] [phone] 03/24/2025 7:30 AM CDT Appointment Department of Radiology, [facility], in [address] [address] Skip Amaya M.D., Ph.D. [address] [place] [phone] 03/24/2025 11:20 AM CDT Lab Department of Infusion Therapy in [address] [address] Skip Amaya M.D., Ph.D. [address] [place] [phone] 03/24/2025 1:30 PM CDT Office Visit Department of Oncology in [place], [place] [address] [place] [phone] Skip Amaya M.D., Ph.D. [address] [place] [phone] 03/25/2025 7:00 AM CDT Infusion Department of Oncology in [place], [place] [address] [place] [phone] Skip Amaya M.D., Ph.D. [address] [place] [phone] 03/29/2025 2:30 PM CDT Clinical Communication Virtual Review in [place], [place] 200 [place] [address] 04/01/2025 6:00 AM CDT Lab Department of Infusion Therapy in [place], [place] [address] [place] [phone] Skip Amaya M.D., Ph.D. [address] [place] [phone] 04/01/2025 8:20 AM CDT Office Visit Department of Oncology in [address] [address] Precious Hill M.D., Ph.D. [address] [place] [phone] 04/01/2025 9:00 AM CDT Infusion Department of Oncology in [address] [address] Skip Amaya M.D., Ph.D. [address] [place] [phone] 04/07/2025 11:00 AM CDT Lab Department of Infusion Therapy in [place], [place] [address] [place] [phone] Skip Amaya M.D., Ph.D. [address] [place] [phone] 04/07/2025 1:20 PM CDT Office Visit Department of Oncology in [place], [place] [address] [place] [phone] Sandy Judge APRN, C.N.P., M.S. [address] [place] [phone] 04/08/2025 7:00 AM CDT Infusion Department of Oncology in [place], [place] [address] [place] [phone] Skip Amaya M.D., Ph.D. [address] [place] [phone] 04/21/2025 7:15 AM CDT Clinical Communication Virtual Review in [place], [place] 200 [place] [phone] 04/22/2025 7:20 AM CDT Lab Department of Infusion Therapy in [address] [phone] Skip Amaya M.D., Ph.D. [address] [place] [phone] 04/22/2025 9:20 AM CDT Office Visit Department of Oncology in [place], [place] [address] [place] [phone] Sandy Judge APRN, C.N.P., M.S. [address] [place] [phone] 04/22/2025 10:30 AM CDT Infusion Department of Oncology in [place], [place] [address] [place] [phone] Skip Amaya M.D., Ph.D. [address] [place] [phone] 04/29/2025 11:15 AM CDT Lab Department of Oncology in [place], [place] [address] [place] [address] Skip Amaya M.D., Ph.D. [address] [place] [phone] 04/29/2025 1:20 PM CDT Office Visit Department of Oncology in [place], [place] [address] [place] [phone] Sandy Judge APRN, C.N.P., M.S. [address] [place] [phone] 04/29/2025 2:00 PM CDT Infusion Department of Oncology in [place], [place] [address] [place] [address] Skip Amaya M.D., Ph.D. [address] [place] [phone] documented as of this encounter Goals Goal Patient Goal Type Associated Problems Recent Progress Patient-Stated? Author Autogenerat ed Goal Care Plan Autogenerated Problem Hedy Frankel, RJustynN. documented as of this encounter Visit Diagnoses Not on filedocumented in this encounter Additional Health Concerns Active Problems Noted Date Diagnosed Date Autogenerated Problem 11/16/2024 Infection Onset Date Last Indicated Resolved Time Protective Environment 01/28/2025 01/28/2025 Assessment Noted Time PHQ-9 Depression Total Score: 7 01/12/20 9:53 AM CDT documented as of this encounter Care Teams Glass Beveler Relationship Specialty Start Date End Date Elsewhere, Pcp PCP - General Internal Medicine 09/09/23 documented as of this encounter
--- OUTSIDE RECORDS SUMMARY | 2025-02-06 12:47 | XMS_ITS | Encounter Summary ---
Author Organization [facility] Address [address] [place] [address] Care Team Providers Care Oncology Rep Name Role Phone Elsewhere, Pcp Primary Care Provider Unavailabl e Encounter Details Date Type Department Care Team (Late st Contact Info) Description 02/04/2025 Orders Only Department of Oncology in [place], [place] [address] [place] [phone] Lionel Swenson M.D. [address] [place] [phone] Social History Tobacco Use Types Packs/Day Years Used Date Smoking Tobacco: Never Passive Smoke Exposure: Past Smokeless Tobacco: Never Passive Exposure Comments:Ch ildhood exposure. Alcohol Use Standard Drinks/Week Comments Not Currently 1 (1 standard drink = 0.6 oz pur e alcohol) 0-1 drink per week [facility] Utilities Answer Date Recorded In the past 12 months has e electric, gas, oil, or water [employer] threatened to shut off services in your [...] your living situation today? I have a [facility] place to live 12/23/2024 Education Answer Date Recorded What is the highest level of school you have completed or the highest degree you have received? Master's degree (e.g., MA, MS, Katelyn, MEd, GLASSWARE VERIFIER, KELLEE) 01/05/2025 Sex and Gender Information Value Date Recorded Sex Assigned at Male 09/10/2023 7:48 AM ORTHOTIC ASSISTANT Legal Sex Male 10:11 PM ORTHOTIC ASSISTANT Gender Identity Male 09/10/2023 7:48 AM ORTHOTIC ASSISTANT Sexual Orientation Straight 09/10/2023 7: 48 AM ORTHOTIC ASSISTANT documented as of this encounter Plan of Treatment Upcoming Encounters Date Type Department Care Team (Latest Contact Info) Description 02/08/2025 2:15 PM CDT Clinical Communication Virtual Review in [place], [place] 200 [place] [phone] 02/09/2025 9:30 AM CDT Telemedicine Department of Oncology in [address] [phone] Jesica Wasserman M.B., B.Ch. [address] [place] [phone] Cecily Nash L.I.C.SSusu. [address] [place] [phone] 02/10/2025 12:00 PM CDT Lab Department of Infusion Therapy in [place], [place] [address] [place] [phone] Skip Amaya M.D., Ph.D. [address] [place] [phone] 02/10/2025 2:30 PM CDT Office Visit Department of Oncology in [place], [place] [address] [place] [phone] Rosenda Garza MPAS, P.A.-C. [address] [place] [phone] 02/11/2025 8:00 AM CDT Infusion Department of Oncology in [place], [place] [address] [place] [phone] Skip Amaya M.D., Ph.D. [address] [place] [phone] 02/23/2025 2:15 PM CDT Clinical Communication Virtual Review in [place], [place] 200 [place] [phone] 02/25/2025 8:30 AM CDT Lab Department of Oncology in [place], [place] [address] [place] [phone] Skip Amaya M.D., Ph.D. [address] [place] [phone] 02/25/2025 10:40 AM CDT Office Visit Department of Oncology in [place], [place] [address] [place] [phone] Sandy Judge, KASH, C.N.P., M.S. [address] [place] [phone] 02/25/2025 11:30 AM CDT Infusion Department of Oncology in [address] [phone] Skip Amaya M.D., Ph.D. [address] [place] [phone] 03/04/2025 6:00 AM CDT Lab Department of Infusion Therapy in [place], [place] [address] [place] [phone] Skip Amaya M.D., Ph.D. [address] [place] [phone] 03/04/2025 8:10 AM CDT Office Visit Department of Oncology in [place], [place] [address] [place] [phone] Jie Shook P.A.-C. [address] [place] [phone] 03/04/2025 9:30 AM CDT Infusion Department of Oncology in [address] [phone] Skip Amaya M.D., Ph.D. [address] [place] [phone] 03/10/2025 2:15 PM CDT Clinical Communication Virtual Review in [address] [phone] 03/11/2025 6:00 AM CDT Lab Department of Laboratory Medicine and Pathology, [facility], in [address] [phone] Skip Amaya M.D., Ph.D. [address] [place] [phone] 03/11/2025 7:20 AM CDT Office Visit Department of Oncology in [address] [phone] Bipin Leal P.A.-C., M.S. [address] [place] [phone] 03/11/2025 8:00 AM CDT Infusion Department of Oncology in [place], [place] [address] [place] [phone] Skip Amaya M.D., Ph.D. [address] [place] [phone] 03/24/2025 7:30 AM CDT Appointment Department of Radiology, [facility], in [place], [place] [address] [place] [phone] Skip Amaya M.D., Ph.D. [address] [place] [phone] 03/24/2025 11:20 AM CDT Lab Department of Infusion Therapy in [place], [place] [address] [place] [phone] Skip Amaya M.D., Ph.D. [address] [place] [phone] 03/24/2025 1:30 PM CDT Office Visit Department of Oncology in [place], [place] [address] [place] [phone] Skip Amaya M.D., Ph.D. [address] [place] [phone] 03/25/2025 7:00 AM CDT Infusion Department of Oncology in [place], [place] [address] [place] [phone] Skip Amaya M.D., Ph.D. [address] [place] [phone] 03/29/2025 2:30 PM CDT Clinical Communication Virtual Review in [place], [place] 200 [place] [address] 04/01/2025 6:00 AM CDT Lab Department of Infusion Therapy in [place], [place] [address] [place] [phone] Skip Aamya M.D., Ph.D. [address] [place] [phone] 04/01/2025 8:20 AM CDT Office Visit Department of Oncology in [place], [place] [address] [place] [phone] Precious Hill M.D., Ph.D. [address] [place] [phone] 04/01/2025 9:00 AM CDT Infusion Department of Oncology in [place], [place] [address] [place] [phone] Skip Amaya M.D., Ph.D. [address] [place] [phone] 04/07/2025 11:00 AM CDT Lab Department of Infusion Therapy in [place], [place] [address] [place] [phone] Skip Amaya M.D., Ph.D. [address] [place] [phone] 04/07/2025 1:20 PM CDT Office Visit Department of Oncology in [place], [place] [address] [place] [phone] Sandy Judge, KASH, C.N.P., M.S. [address] [place] [phone] 04/08/2025 7:00 AM CDT Infusion Department of Oncology in [place], [place] [address] [place] [phone] Skip Amaya M.D., Ph.D. [address] [place] [phone] 04/21/2025 7:15 AM CDT Clinical Communication Virtual Review in [place], [place] 200 [place] [address] 04/22/2025 7:20 AM CDT Lab Department of Infusion Therapy in [place], [place] [address] [place] [phone] Skip Amaya M.D., Ph.D. [address] [place] [phone] 04/22/2025 9:20 AM CDT Office Visit Department of Oncology in [place], [place] [address] [place] [phone] Sandy Judge APRN, C.N.P., M.S. [address] [place] [phone] 04/22/2025 10:30 AM CDT Infusion Department of Oncology in [place], [place] [address] [place] [phone] Skip Amaya M.D., Ph.D. [address] [place] [phone] 04/29/2025 11:15 AM CDT Lab Department of Oncology in [address] [phone] Skip Amaya M.D., Ph.D. [address] [place] [phone] 04/29/2025 1:20 PM CDT Office Visit Department of Oncology in [place], [place] [address] [place] [phone] Sandy Judge APRN, C.N.P., M.S. [address] [place] [phone] 04/29/2025 2:00 PM CDT Infusion Department of Oncology in [place], [place] [address] [place] [address] Skip Amaya M.D., Ph.D. [address] [place] [phone] documented as of this encounter Goals Goal [...] documented as of this encounter Care Teams Oncology Rep Relationship Specialty Start Date End Date Elsewhere, Pcp PCP - General Internal Medicine 09/09/23 documented as of this encounter
--- OUTSIDE RECORDS SUMMARY | 2025-02-06 12:47 | XMS_ITS | Encounter Summary ---
Author Organization [facility] Address [address] [place] [address] Care Team Providers Care Lead Medical Technologist Name Role Phone Elsewhere, Pcp Primary Care Provider Unavailabl e Encounter Details Date Type Department Care Team (Late st Contact Info) Description 01/05/2025 Clinical Communication Department of Oncology in [place], [place] [address] [place] [phone] Jesica Wasserman M.B., B.Ch. [address] [place] [phone] Social History Tobacco Use Types Packs/Day Years Used Date Smoking Tobacco: Never Passive Smoke Exposure: Past Smokeless Tobacco: Never Passive Exposure Comments: ildhood exposure. Alcohol Use Standard Drinks/Week Comments Not Currently 1 (1 standard drink = 0.6 oz pur e alcohol) 0-1 drink per week [facility] Utilities Answer Date Recorded In the past 12 months has [employer] electric, gas, oil, or water company threatened [...] Master's degree (e.g., MA, MS, Katelyn, MEd, SOCIAL SCIENCE RESEARCH ASSISTANT, KELLEE) 01/05/2025 Sex and Gender Information Value Date Recorded Sex Assigned at Male 09/10/2023 7:48 AM PAPER TWISTER Legal Sex Male 10:11 PM PAPER TWISTER Gender Identity Male 09/10/2023 7:48 AM PAPER TWISTER Sexual Orientation Straight 09/10/2023 7: 48 AM PAPER TWISTER documented as of this encounter Plan of Treatment Upcoming Encounters Date Type Department Care Team (Latest Contact Info) Description 02/08/2025 2:15 PM CDT Clinical Communication Virtual Review in [place], [place] [address] [place] [phone] 02/09/2025 9:30 AM CDT Telemedicine Department of Oncology in [address] [phone] Jesica Wasserman M.B., B.Ch. [address] [place] [phone] Cecily Nash L.I.C.S.W. [address] [place] [phone] 02/10/2025 12:00 PM CDT Lab Department of Infusion Therapy in [place], [place] [address] [place] [phone] Skip Amaya M.D., Ph.D. [address] [place] [phone] 02/10/2025 2:30 PM CDT Office Visit Department of Oncology in [place], [place] [address] [place] [phone] Rosenda Garza MPAS, P.A.-C. [address] [place] [phone] 02/11/2025 8:00 AM CDT Infusion Department of Oncology in [address] [phone] Skip Amaya M.D., Ph.D. [address] [place] [phone] 02/23/2025 2:15 PM CDT Clinical Communication Virtual Review in [place], [place] 200 [place] [phone] 02/25/2025 8:30 AM CDT Lab Department of Oncology in [address] [phone] Skip Amaya M.D., Ph.D. [address] [place] [phone] 02/25/2025 10:40 AM CDT Office Visit Department of Oncology in [place], [place] [address] [place] [phone] Sandy Judge APRN, C.N.P., M.S. [address] [place] [phone] 02/25/2025 11:30 AM CDT Infusion Department of Oncology in [address] [phone] Skip Amaya M.D., Ph.D. [address] [place] [phone] 03/04/2025 6:00 AM CDT Lab Department of Infusion Therapy in [place], [place] [address] [place] [phone] Skip Amaya M.D., Ph.D. [address] [place] [phone] 03/04/2025 8:10 AM CDT Office Visit Department of Oncology in [address] [phone] Jie Shook P.A.-C. [address] [place] [phone] 03/04/2025 9:30 AM CDT Infusion Department of Oncology in [address] [phone] Skip Amaya M.D., Ph.D. [address] [place] [phone] 03/10/2025 2:15 PM CDT Clinical Communication Virtual Review in [place], [place] 200 [place] [phone] 03/11/2025 6:00 AM CDT Lab Department of Laboratory Medicine and Pathology, [facility], in [address] [phone] Skip Amaya M.D., Ph.D. [address] [place] [phone] 03/11/2025 7:20 AM CDT Office Visit Department of Oncology in [address] [phone] Bipin Leal P.A.-C., M.S. [address] [place] [address] [phone] 03/11/2025 8:00 AM CDT Infusion Department of Oncology in [place], [place] [address] [place] [phone] Skip Amaya M.D., Ph.D. [address] [place] [phone] 03/24/2025 7:30 AM CDT Appointment Department of Radiology, [facility], in [place], [place] [address] [place] [phone] Skip Amaya M.D., Ph.D. [address] [place] [phone] 03/24/2025 11:20 AM CDT Lab Department of Infusion Therapy in [address] [phone] Skip Amaya M.D., Ph.D. [address] [place] [phone] 03/24/2025 1:30 PM CDT Office Visit Department of Oncology in [place], [place] [address] [place] [phone] Skip Amaya M.D., Ph.D. [address] [place] [phone] 03/25/2025 7:00 AM CDT Infusion Department of Oncology in [place], [place] [address] [place] [phone] Skip Amaya M.D., Ph.D. [address] [place] [phone] 03/29/2025 2:30 PM CDT Clinical Communication Virtual Review in [place], [place] 200 [place] [phone] 04/01/2025 6:00 AM CDT Lab Department of Infusion Therapy in [place], [place] [address] [place] [phone] Skip Amaya M.D., Ph.D. [address] [place] [phone] 04/01/2025 8:20 AM CDT Office Visit Department of Oncology in [place], [place] [address] [place] [phone] Precious Hill M.D., Ph.D. [address] [place] [phone] 04/01/2025 9:00 AM CDT Infusion Department of Oncology in [place], [place] [address] [place] [phone] Skip Amaya M.D., Ph.D. [address] [place] [phone] 04/07/2025 11:00 AM CDT Lab Department of Infusion Therapy in [place], [place] [address] [place] [phone] Skip Amaya M.D., Ph.D. [address] [place] [phone] 04/07/2025 1:20 PM CDT Office Visit Department of Oncology in [place], [place] [address] [place] [phone] Sandy Judge APRN, C.N.P., M.S. [address] [place] [phone] 04/08/2025 7:00 AM CDT Infusion Department of Oncology in [place], [place] [address] [place] [phone] Skip Amaya M.D., Ph.D. [address] [place] [phone] 04/21/2025 7:15 AM CDT Clinical Communication Virtual Review in [place], [place] 200 [place] [phone] 04/22/2025 7:20 AM CDT Lab Department of Infusion Therapy in [place], [place] [address] [place] [phone] Skip Amaya M.D., Ph.D. [address] [place] [phone] 04/22/2025 9:20 AM CDT Office Visit Department of Oncology in [place], [place] [address] [place] [phone] Sandy Judge APRN, C.N.P., M.S. [address] [place] [phone] 04/22/2025 10:30 AM CDT Infusion Department of Oncology in [place], [place] [address] [place] [phone] Skip Amaya M.D., Ph.D. [address] [place] [phone] 04/29/2025 11:15 AM CDT Lab Department of Oncology in [place], [place] [address] [place] [phone] Skip Amaya M.D., Ph.D. [address] [place] [phone] 04/29/2025 1:20 PM CDT Office Visit Department of Oncology in [place], [place] [address] [place] [phone] Sandy Judge APRN, C.N.P., M.S. [address] [place] [phone] 04/29/2025 2:00 PM CDT Infusion Department of Oncology in [place], [place] 200 [place] [phone] Skip Amaya M.D., Ph.D. 200 [place] [phone] documented as of this encounter Goals Goal [...] documented as of this encounter Care Teams Lead Medical Technologist Relationship Specialty Start Date End Date Elsewhere, Pcp PCP - General Internal Medicine 09/09/23 documented as of this encounter
--- OUTSIDE RECORDS SUMMARY | 2025-02-06 12:47 | XMS_ITS | Encounter Summary ---
Author Organization [facility] Address [address] [place] [id number] Care Team Providers Care Film Reproducer Name Role Phone Elsewhere, Pcp Primary Care Provider Unavailabl e Reason for Visit * Reason Onset Date Comments Follow-up 12/31/2024 Post procedure c all Encounter Details Date Type Department Care Team (Latest Contact Info) Description 12/31/2024 Clinical Communication Department of Radiology, [facility], in [place], [place] [address] [place] [address] Akash Hudson M.D. [address] [place] [address] Follow-up (Post procedure call) Social History Tobacco Use Types Packs/Day Years Used Date Smoking Tobacco: Never Passive Smoke Exposure: Past Smokeless Tobacco: Never Passive Exposure Comments:Ch ildhood exposure. Alcohol Use Standard Drinks/Week Comments Not Currently 1 (1 standard drink = 0.6 oz pur e alcohol) 0-1 drink per week [facility] Utilities Answer Date Recorded In the past 12 months has [employer] electric, gas, oil, or water company threatened [...] your living situation today? I have a [facility] place to live 12/23/2024 Sex and Gender Information Value Date Recorded Sex Assigned at Male 09/10/2023 7:48 AM PAPERBACK MACHINE OPERATOR Legal Sex Male 10:11 PM PAPERBACK MACHINE OPERATOR Gender Identity Male 09/10/2023 7:48 AM PAPERBACK MACHINE OPERATOR Sexual Orientation Straight 09/10/2023 7: 48 AM PAPERBACK MACHINE OPERATOR documented as of this encounter Miscellaneous Notes [...] PM CDT Clinical Communication Virtual Review in [place], [place] [address] [place] [address] 02/09/2025 9:30 AM CDT Telemedicine Department of Oncology in [address] [address] Jesica Wasserman M.B., B.Ch. [address] [place] [phone] Cecily Nash L.I.C.S.W. [address] [place] [phone] 02/10/2025 12:00 PM CDT Lab Department of Infusion Therapy in [address] [address] Skip Amaya M.D., Ph.D. [address] [place] [phone] 02/10/2025 2:30 PM CDT Office Visit Department of Oncology in [address] [phone] Rosenda Garza MPAS, P.A.-C. [address] [place] [phone] 02/11/2025 8:00 AM CDT Infusion Department of Oncology in [address] [address] Skip Amaya M.D., Ph.D. [address] [place] [phone] 02/23/2025 2:15 PM CDT Clinical Communication Virtual Review in [place], [place] [address] [place] [address] 02/25/2025 8:30 AM CDT Lab Department of Oncology in [place], [place] [address] [place] [phone] Skip Amaya M.D., Ph.D. [address] [place] [phone] 02/25/2025 10:40 AM CDT Office Visit Department of Oncology in [place], [place] [address] [place] [phone] Sandy Judge, KASH, C.N.P., M.S. [address] [place] [phone] 02/25/2025 11:30 AM CDT Infusion Department of Oncology in [place], [place] [address] [place] [phone] Skip Amaya M.D., Ph.D. [address] [place] [phone] 03/04/2025 6:00 AM CDT Lab Department of Infusion Therapy in [address] [address] Skip Amaya M.D., Ph.D. [address] [place] [phone] 03/04/2025 8:10 AM CDT Office Visit Department of Oncology in [place], [place] [address] [place] [phone] Jie Shook P.A.-C. [address] [place] [phone] 03/04/2025 9:30 AM CDT Infusion Department of Oncology in [place], [place] [address] [place] [phone] Skip Amaya M.D., Ph.D. [address] [place] [phone] 03/10/2025 2:15 PM CDT Clinical Communication Virtual Review in [place], [place] [address] [place] [address] 03/11/2025 6:00 AM CDT Lab Department of Laboratory Medicine and Pathology, [facility] in [place], [place] [address] [place] [phone] Skip Amaya M.D., Ph.D. [address] [place] [phone] 03/11/2025 7:20 AM CDT Office Visit Department of Oncology in [place], [place] [address] [place] [phone] Bipin Leal P.A.-C., M.S. [address] [place] [phone] 03/11/2025 8:00 AM CDT Infusion Department of Oncology in [address] [address] Skip Amaya M.D., Ph.D. [address] [place] [phone] 03/24/2025 7:30 AM CDT Appointment Department of Radiology, [facility], in [place], [place] [address] [place] [phone] Skip Amaya M.D., Ph.D. [address] [place] [phone] 03/24/2025 11:20 AM CDT Lab Department of Infusion Therapy in [address] [address] Skip Amaya M.D., Ph.D. [address] [place] [phone] 03/24/2025 1:30 PM CDT Office Visit Department of Oncology in [address] [address] Skip Amaya M.D., Ph.D. [address] [place] [phone] 03/25/2025 7:00 AM CDT Infusion Department of Oncology in [address] [address] Skip Amaya M.D., Ph.D. [address] [place] [phone] 03/29/2025 2:30 PM CDT Clinical Communication Virtual Review in [place], [place] [address] [place] [address] 04/01/2025 6:00 AM CDT Lab Department of Infusion Therapy in [address] [address] Skip Amaya M.D., Ph.D. [address] [place] [phone] 04/01/2025 8:20 AM CDT Office Visit Department of Oncology in [address] [address] Precious Hill M.D., Ph.D. [address] [place] [phone] 04/01/2025 9:00 AM CDT Infusion Department of Oncology in [address] [address] Skip Amaya M.D., Ph.D. [address] [place] [phone] 04/07/2025 11:00 AM CDT Lab Department of Infusion Therapy in [place], [place] [address] [place] [phone] Skip Amaya M.D., Ph.D. [address] [place] [phone] 04/07/2025 1:20 PM CDT Office Visit Department of Oncology in [place], [place] [address] [place] [phone] Sandy Judge APRN, C.N.P., M.S. [address] [place] [phone] 04/08/2025 7:00 AM CDT Infusion Department of Oncology in [place], [place] [address] [place] [phone] Skip Amaya M.D., Ph.D. [address] [place] [phone] 04/21/2025 7:15 AM CDT Clinical Communication Virtual Review in [place], [place] [address] [place] [address] 04/22/2025 7:20 AM CDT Lab Department of Infusion Therapy in [place], [place] [address] [place] [phone] Skip Amaya M.D., Ph.D. [address] [place] [phone] 04/22/2025 9:20 AM CDT Office Visit Department of Oncology in [place], [place] [address] [place] [phone] Sandy Judge APRN, C.N.P., M.S. [address] [place] [phone] 04/22/2025 10:30 AM CDT Infusion Department of Oncology in [place], [place] [address] [place] [address] Skip Amyaa M.D., Ph.D. [address] [place] [phone] 04/29/2025 11:15 AM CDT Lab Department of Oncology in [place], [place] [address] [place] [phone] Skip Amaya M.D., Ph.D. [address] [place] [phone] 04/29/2025 1:20 PM CDT Office Visit Department of Oncology in [place], [place] [address] [place] [phone] Sandy Judge, KASH, C.N.P., M.S. [address] [place] [phone] 04/29/2025 2:00 PM CDT Infusion Department of Oncology in [place], [place] [address] [place] [phone] Skip Amaya M.D., Ph.D. [address] [place] [phone] documented as of this encounter Goals Goal Patient Goal Type Associated Problems Recent Progress Patient-Stated? Author Autogenerat ed Goal Care Plan Autogenerated Problem Hedy Frankel R.N. documented as of this encounter Visit Diagnoses Not on filedocumented in this encounter Additional Health Concerns Active Problems Noted Date Diagnosed Date Autogenerated Problem 11/16/2024 documented as of this encounter Care Teams Film Reproducer Relationship Specialty Start Date End Date Elsewhere, Pcp PCP - General Internal Medicine 09/09/23 documented as of this encounter
--- OUTSIDE RECORDS SUMMARY | 2025-02-06 12:47 | XMS_ITS | Encounter Summary ---
Author Organization [facility] Address [address] [place] [address] Care Team Providers Care Hospitalist Nocturnist Physician Name Role Phone Elsewhere, Pcp Primary Care Provider Unavailabl e Encounter Details Date Type Department Care Team (Late st Contact Info) Description 01/10/2025 Clinical Communication [facility] Department of Family Medicine in [place], [place] [address] [facility] [place] [phone] Yanely Silva M.D. [address] [place] [phone] Social History Tobacco Use Types Packs/Day Years Used Date Smoking Tobacco: Never Passive Smoke Exposure: Past Smokeless Tobacco: Never Passive Exposure Comments:Ch ildhood exposure. Alcohol Use Standard Drinks/Week Comments Not Currently 1 (1 standard drink = 0.6 oz pur e alcohol) 0-1 drink per week [facility] Utilities Answer Date Recorded In the past 12 months has [employer] electric, gas, oil, or water company threatened [...] your living situation today? I have a [facility] place to live 12/23/2024 Education Answer Date Recorded What is the highest level of school you have completed or the highest degree you have received? Master's degree (e.g., MA, MS, Katelyn, MEd, MORTGAGE PROCESSING CLERK, KELLEE) 01/05/2025 Sex and Gender Information Value Date Recorded Sex Assigned at Male 09/10/2023 7:48 AM MERCHANDISING COORDINATOR Legal Sex Male 10:11 PM MERCHANDISING COORDINATOR Gender Identity Male 09/10/2023 7:48 AM MERCHANDISING COORDINATOR Sexual Orientation Straight 09/10/2023 7: 48 AM MERCHANDISING COORDINATOR documented as of this encounter Plan of Treatment Upcoming Encounters Date Type Department Care Team (Latest Contact Info) Description 02/08/2025 2:15 PM CDT Clinical Communication Virtual Review in [place], [place] [address] [place] [phone] 02/09/2025 9:30 AM CDT Telemedicine Department of Oncology in [address] [phone] Jesica Wasserman M.B., B.Ch. [address] [place] [phone] Cecily Nash L.I.C.S.W. [address] [place] [phone] 02/10/2025 12:00 PM CDT Lab Department of Infusion Therapy in [place], [place] [address] [place] [phone] Skip Amaya M.D., Ph.D. [address] [place] [phone] 02/10/2025 2:30 PM CDT Office Visit Department of Oncology in [place], [place] [address] [place] [phone] Rosenda Garza MPAS, P.A.-C. [address] [place] [phone] 02/11/2025 8:00 AM CDT Infusion Department of Oncology in [address] [address] Skip Amaya M.D., Ph.D. [address] [place] [phone] 02/23/2025 2:15 PM CDT Clinical Communication Virtual Review in [place], [place] 200 [place] [address] 02/25/2025 8:30 AM CDT Lab Department of Oncology in [address] [address] Skip Amyaa M.D., Ph.D. [address] [place] [phone] 02/25/2025 10:40 AM CDT Office Visit Department of Oncology in [place], [place] [address] [place] [phone] Sandy Judge APRN, C.N.P., M.S. [address] [place] [phone] 02/25/2025 11:30 AM CDT Infusion Department of Oncology in [address] [address] Skip Amaya M.D., Ph.D. [address] [place] [phone] 03/04/2025 6:00 AM CDT Lab Department of Infusion Therapy in [place], [place] [address] [place] [phone] Skip Amaya M.D., Ph.D. [address] [place] [phone] 03/04/2025 8:10 AM CDT Office Visit Department of Oncology in [address] [phone] Jie Shook P.A.-C. [address] [place] [phone] 03/04/2025 9:30 AM CDT Infusion Department of Oncology in [address] [address] Skip Amaya M.D., Ph.D. [address] [place] [phone] 03/10/2025 2:15 PM CDT Clinical Communication Virtual Review in [place], [place] 200 [place] [phone] 03/11/2025 6:00 AM CDT Lab Department of Laboratory Medicine and Pathology, [facility], in [address] [phone] Skip Amaya M.D., Ph.D. [address] [place] [phone] 03/11/2025 7:20 AM CDT Office Visit Department of Oncology in [address] [phone] Bipin Leal P.A.-C., M.S. [address] [place] [phone] 03/11/2025 8:00 AM CDT Infusion Department of Oncology in [place], [place] [address] [place] [phone] Skip Amaya M.D., Ph.D. [address] [place] [phone] 03/24/2025 7:30 AM CDT Appointment Department of Radiology, [facility], in [place], [place] [address] [place] [phone] Skip Amaya M.D., Ph.D. [address] [place] [phone] 03/24/2025 11:20 AM CDT Lab Department of Infusion Therapy in [address] [address] Skip Amaya M.D., Ph.D. [address] [place] [phone] 03/24/2025 1:30 PM CDT Office Visit Department of Oncology in [place], [place] [address] [place] [phone] Skip Amaya M.D., Ph.D. [address] [place] [phone] 03/25/2025 7:00 AM CDT Infusion Department of Oncology in [place], [place] [address] [place] [phone] Skip Amaya M.D., Ph.D. [address] [place] [phone] 03/29/2025 2:30 PM CDT Clinical Communication Virtual Review in [place], [place] 200 [place] [address] 04/01/2025 6:00 AM CDT Lab Department of Infusion Therapy in [place], [place] [address] [place] [phone] Skip Amaya M.D., Ph.D. [address] [place] [phone] 04/01/2025 8:20 AM CDT Office Visit Department of Oncology in [place], [place] [address] [place] [phone] Precious Hill M.D., Ph.D. [address] [place] [phone] 04/01/2025 9:00 AM CDT Infusion Department of Oncology in [place], [place] [address] [place] [phone] Skip Amaya M.D., Ph.D. [address] [place] [phone] 04/07/2025 11:00 AM CDT Lab Department of Infusion Therapy in [place], [place] [address] [place] [phone] Skip Amaya M.D., Ph.D. [address] [place] [phone] 04/07/2025 1:20 PM CDT Office Visit Department of Oncology in [place], [place] [address] [place] [phone] Sandy Judge APRN, C.N.P., M.S. [address] [place] [phone] 04/08/2025 7:00 AM CDT Infusion Department of Oncology in [place], [place] [address] [place] [phone] Skip Amaya M.D., Ph.D. [address] [place] [phone] 04/21/2025 7:15 AM CDT Clinical Communication Virtual Review in [place], [place] 200 [place] [address] 04/22/2025 7:20 AM CDT Lab Department of Infusion Therapy in [place], [place] [address] [place] [phone] Skip Amaya M.D., Ph.D. [address] [place] [phone] 04/22/2025 9:20 AM CDT Office Visit Department of Oncology in [place], [place] [address] [place] [phone] Sandy Judge APRN, C.N.P., M.S. [address] [place] [phone] 04/22/2025 10:30 AM CDT Infusion Department of Oncology in [place], [place] [address] [place] [phone] Skip Amaya M.D., Ph.D. [address] [place] [phone] 04/29/2025 11:15 AM CDT Lab Department of Oncology in [place], [place] [address] [place] [phone] Skip Amaya M.D., Ph.D. [address] [place] [phone] 04/29/2025 1:20 PM CDT Office Visit Department of Oncology in [place], [place] [address] [place] [phone] Sandy Judge APRN, C.N.P., M.S. [address] [place] [phone] 04/29/2025 2:00 PM CDT Infusion Department of Oncology in [place], [place] 200 [place] [address] Skip Amaya M.D., Ph.D. 200 [place] [address] documented as of this encounter Goals Goal [...] documented as of this encounter Care Teams Hospitalist Nocturnist Physician Relationship Specialty Start Date End Date Elsewhere, Pcp PCP - General Internal Medicine 09/09/23 documented as of this encounter
--- OUTSIDE RECORDS SUMMARY | 2025-02-06 12:47 | XMS_ITS | Encounter Summary ---
Author Organization [facility] Address [address] [place] [address] Care Team Providers Care Silicator Name Role Phone Elsewhere, Pcp Primary Care Provider Unavailabl e Reason for Visit * Reason Onset Date Comments Previsit Preparation 12/22/2024 Hepatobiliary 12/22/2024 [facility] - Outside Materials 12/22/2024 Encounter Details Date Type Department Care Team (Latest Contact Info) Description 12/22/2024 Clinical Communication Division of Gastroenterology in [place], [place] [address] [place] [address] Prescheduling, Provider Previsit Preparation; Hepatobiliary; [facility] - Outside Materials Social History Tobacco Use Types Packs/Day Years Used Date Smoking Tobacco: Never Passive Smoke Exposure: Past Smokeless Tobacco: Never Passive Exposure Comments:Ch ildhood exposure. Alcohol Use Standard Drinks/Week Comments Not Currently 1 (1 standard drink = 0.6 oz pur e alcohol) 0-1 drink per week [facility] Utilities Answer Date Recorded In the past 12 months has [employer] electric, gas, oil, or water company threatened [...] living situation today? I have a [facility] place to live 12/23/2024 Sex and Gender Information Value Date Recorded Sex Assigned at Male 09/10/2023 7:48 AM INSIDE POLISHER Legal Sex Male 10:11 PM INSIDE POLISHER Gender Identity Male 09/10/2023 7:48 AM INSIDE POLISHER Sexual Orientation Straight 09/10/2023 7: 48 AM INSIDE POLISHER documented as of this encounter Plan of Treatment Upcoming Encounters Date Type Department Care Team (Latest Contact Info) Description 02/08/2025 2:15 PM CDT Clinical Communication Virtual Review in [place], [place] [address] [place] [address] 02/09/2025 9:30 AM CDT Telemedicine Department of Oncology in [address] [phone] Jesica Wasserman M.B., B.Ch. [address] [place] [phone] Cecily Nash L.I.C.S.W. [address] [place] [phone] 02/10/2025 12:00 PM CDT Lab Department of Infusion Therapy in [place], [place] [address] [place] [phone] Skip Amaya M.D., Ph.D. [address] [place] [phone] 02/10/2025 2:30 PM CDT Office Visit Department of Oncology in [place], [place] [address] [place] [phone] Rosenda Garza MPAS, P.A.-C. [address] [place] [phone] 02/11/2025 8:00 AM CDT Infusion Department of Oncology in [place], [place] [address] [place] [phone] Skip Amaya M.D., Ph.D. [address] [place] [phone] 02/23/2025 2:15 PM CDT Clinical Communication Virtual Review in [place], [place] [address] [place] [address] 02/25/2025 8:30 AM CDT Lab Department of Oncology in [place], [place] [address] [place] [phone] Skip Amaya M.D., Ph.D. [address] [place] [phone] 02/25/2025 10:40 AM CDT Office Visit Department of Oncology in [address] [phone] Sandy Judge, KASH, C.N.P., M.S. [address] [place] [phone] 02/25/2025 11:30 AM CDT Infusion Department of Oncology in [place], [place] [address] [place] [phone] Skip Amaya M.D., Ph.D. [address] [place] [phone] 03/04/2025 6:00 AM CDT Lab Department of Infusion Therapy in [address] [phone] Skip Amaya M.D., Ph.D. [address] [place] [phone] 03/04/2025 8:10 AM CDT Office Visit Department of Oncology in [address] [phone] Jie Shook P.A.-C. [address] [place] [phone] 03/04/2025 9:30 AM CDT Infusion Department of Oncology in [address] [address] Skip Amaya M.D., Ph.D. [address] [place] [phone] 03/10/2025 2:15 PM CDT Clinical Communication Virtual Review in [address] [phone] 03/11/2025 6:00 AM CDT Lab Department of Laboratory Medicine and Pathology, [facility], in [address] [phone] Skip Amaya M.D., Ph.D. [address] [place] [phone] 03/11/2025 7:20 AM CDT Office Visit Department of Oncology in [address] [phone] Bipin Leal P.A.-C., M.S. [address] [place] [phone] 03/11/2025 8:00 AM CDT Infusion Department of Oncology in [address] [address] Skip Amaya M.D., Ph.D. [address] [place] [phone] 03/24/2025 7:30 AM CDT Appointment Department of Radiology, [facility], in [place], [place] [address] [place] [phone] Skip Amaya M.D., Ph.D. [address] [place] [phone] 03/24/2025 11:20 AM CDT Lab Department of Infusion Therapy in [place], [place] [address] [place] [phone] Skip Amaya M.D., Ph.D. [address] [place] [phone] 03/24/2025 1:30 PM CDT Office Visit Department of Oncology in [place], [place] [address] [place] [phone] Skip Amaya M.D., Ph.D. [address] [place] [phone] 03/25/2025 7:00 AM CDT Infusion Department of Oncology in [place], [place] [address] [place] [phone] Skip Amaya M.D., Ph.D. [address] [place] [phone] 03/29/2025 2:30 PM CDT Clinical Communication Virtual Review in [place], [place] [address] [place] [address] 04/01/2025 6:00 AM CDT Lab Department of Infusion Therapy in [place], [place] [address] [place] [phone] Skip Amaya M.D., Ph.D. [address] [place] [phone] 04/01/2025 8:20 AM CDT Office Visit Department of Oncology in [address] [phone] Precious Hill M.D., Ph.D. [address] [place] [phone] 04/01/2025 9:00 AM CDT Infusion Department of Oncology in [address] [phone] Skip Amaya M.D., Ph.D. [address] [place] [phone] 04/07/2025 11:00 AM CDT Lab Department of Infusion Therapy in [address] [phone] Skip Amaya M.D., Ph.D. [address] [place] [phone] 04/07/2025 1:20 PM CDT Office Visit Department of Oncology in [address] [phone] Sandy Judge, KASH, C.N.P., M.S. [address] [place] [phone] 04/08/2025 7:00 AM CDT Infusion Department of Oncology in [address] [phone] Skip Amaya M.D., Ph.D. [address] [place] [phone] 04/21/2025 7:15 AM CDT Clinical Communication Virtual Review in [address] [phone] 04/22/2025 7:20 AM CDT Lab Department of Infusion Therapy in [place], [place] [address] [place] [phone] Skip Amaya M.D., Ph.D. [address] [place] [phone] 04/22/2025 9:20 AM CDT Office Visit Department of Oncology in [place], [place] [address] [place] [phone] Sandy Judge APRN, C.N.P., M.S. [address] [place] [phone] 04/22/2025 10:30 AM CDT Infusion Department of Oncology in [place], [place] [address] [place] [phone] Skip Amaya M.D., Ph.D. [address] [place] [phone] 04/29/2025 11:15 AM CDT Lab Department of Oncology in [place], [place] [address] [place] [phone] Skip Amaya M.D., Ph.D. [address] [place] [phone] 04/29/2025 1:20 PM CDT Office Visit Department of Oncology in [place], [place] [address] [place] [phone] Sandy Judge APRN, C.N.P., M.S. [address] [place] [phone] 04/29/2025 2:00 PM CDT Infusion Department of Oncology in [place], [place] [address] [place] [phone] Skip Amaya M.D., Ph.D. [address] [place] [address] documented as of this encounter Goals Goal Patient Goal Type Associated Problems Recent Progress Patient-Stated? Author Autogenerat ed Goal Care Plan Autogenerated Problem No Hedy Lees, RJustynN. documented as of this encounter Visit Diagnoses Not on filedocumented in this encounter Additional Health Concerns Active Problems Noted Date Diagnosed Date Autogenerated Problem 11/16/2024 documented as of this encounter Care Teams Silicator Relationship Specialty Start Date End Date Elsewhere, Pcp PCP - General Internal Medicine 09/09/23 documented as of this encounter
--- OUTSIDE RECORDS SUMMARY | 2025-02-06 12:47 | XMS_ITS ---
Author Organization [facility] Address [address] [place] [address] Care Team Providers Care Leak Gang Supervisor Name Role Phone Elsewhere, Pcp Primary Care Provider Unavailabl e Active Problems * This document contains information received from the source organization and may not represent a complete record from that organization. Problem Noted Date Diagnosed Date Other Penitentiary Current Drug Therapy 01/21/2025 Malignant Neoplasm Of [...] Hyperlipidemia 10/28/2007 Current Treatment and Therapy Plans [facility]-1 ( Quemliclustat (AB680) or Placebo / PACLitaxel PROTEIN BOUND / Gemcitabine )* Plan Start Date:01/20/2025 Plan Provider:Skip Amaya M.D., Ph.D. 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) Treatment Medications Current Day (Day 1 5, Cycle 1 - Planned for 02/11/2025) Next Day (Day 1, Cycle 2 - Planned for 02/25/2025) gemcitabine (Gemzar)gemcitabine (Gemzar) IVPB (Gemzar)PACLitaxel protein-bound (Abraxane)PROTEIN-BOUND PACLItaxel (Abraxane)Research IRB [id number] quemliclustat or placebo (AB680)Research IRB [id number] quemliclustat or placebo IVPB (AB680) gemcitabine 2,200 mg in NaCl 0.9% 307.86 mL IVPB (Gemzar)PROTEIN-BOUND PACLItaxel (Abraxane) IVPB 270 mg 54 [facility] IRB [id number] quemliclustat or placebo 100 mg in NaCl 0.9% 100 mL IVPB (AB680) gemcitabine 2,200 mg in NaCl 0.9% 307.86 mL IVPB (Gemzar)PROTEIN-BOUND PACLItaxel (Abraxane) IVPB 270 mg 54 [facility] IRB [id number] quemliclustat or placebo 100 mg in NaCl [...]
--- OUTSIDE RECORDS SUMMARY | 2025-02-06 12:47 | XMS_ITS | Encounter Summary ---
Author Organization [facility] Address [address] [place] [address] Care Team Providers Care Vice President Industrial Relations Name Role Phone Elsewhere, Pcp Primary Care Provider Unavailabl e Reason for Visit * Reason Onset Date Comments genetic testing 12/29/2024 Encounter Details Date Type Department Care Team (Late st Contact Info) Description 12/29/2024 Clinical Communication Department of Medical Genetics in [place], [place] [address] [place] [phone] Danay Diaz M.S., [facility] [address] [place] [phone] genetic testing Social History Tobacco Use Types Packs/Day Years Used Date Smoking Tobacco: Never Passive Smoke Exposure: Past Smokeless Tobacco: Never Passive Exposure Comments:Ch ildhood exposure. Alcohol Use Standard Drinks/Week Comments Not Currently 1 (1 standard drink = 0.6 oz pur e alcohol) 0-1 drink per week [facility] Utilities Answer Date Recorded In the past 12 months has [employer] electric, gas, oil, or water company threatened [...] your living situation today? I have a [facility] 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 [address] [place] [phone] Cecily Nash L.I.C.S.W. [address] [place] [phone] 02/10/2025 12:00 PM CDT Lab Department of Infusion Therapy in [place], [place] [address] [place] [phone] Skip Amaya M.D., Ph.D. [address] [place] [phone] 02/10/2025 2:30 PM CDT Office Visit Department of Oncology in [place], [place] [address] [place] [phone] Rosenda Garza MPAS, P.A.-C. [address] [place] [phone] 02/11/2025 8:00 AM CDT Infusion Department of Oncology in [address] [phone] Skip Amaya M.D., Ph.D. [address] [place] [phone] 02/23/2025 2:15 PM CDT Clinical Communication Virtual Review in [address] [phone] 02/25/2025 8:30 AM CDT Lab Department of Oncology in [address] [address] Skip Amaya M.D., Ph.D. [address] [place] [phone] 02/25/2025 10:40 AM CDT Office Visit Department of Oncology in [address] [phone] Sandy Judge APRN, C.N.P., M.S. [address] [place] [phone] 02/25/2025 11:30 AM CDT Infusion Department of Oncology in [address] [address] Skip Amaya M.D., Ph.D. [address] [place] [phone] 03/04/2025 6:00 AM CDT Lab Department of Infusion Therapy in [address] [phone] Skip Amaya M.D., Ph.D. [address] [place] [phone] 03/04/2025 8:10 AM CDT Office Visit Department of Oncology in [place], [place] [address] [place] [phone] Jie Shook P.A.-C. [address] [place] [phone] 03/04/2025 9:30 AM CDT Infusion Department of Oncology in [place], [place] [address] [place] [phone] Skip Amaya M.D., Ph.D. [address] [place] [phone] 03/10/2025 2:15 PM CDT Clinical Communication Virtual Review in [place], [place] [address] [place] [address] 03/11/2025 6:00 AM CDT Lab Department of Laboratory Medicine and Pathology, [facility] in [place], [place] [address] [place] [phone] Skip Amaya M.D., Ph.D. [address] [place] [phone] 03/11/2025 7:20 AM CDT Office Visit Department of Oncology in [place], [place] [address] [place] [phone] Bipin Leal P.A.-C., M.S. [address] [place] [phone] 03/11/2025 8:00 AM CDT Infusion Department of Oncology in [place], [place] [address] [place] [phone] Skip Amaya M.D., Ph.D. [address] [place] [phone] 03/24/2025 7:30 AM CDT Appointment Department of Radiology, [facility], in [place], [place] [address] [place] [phone] Skip Amaya M.D., Ph.D. [address] [place] [phone] 03/24/2025 11:20 AM CDT Lab Department of Infusion Therapy in [address] [phone] Skip Amaya M.D., Ph.D. [address] [place] [phone] 03/24/2025 1:30 PM CDT Office Visit Department of Oncology in [address] [phone] Skip Amaya M.D., Ph.D. [address] [place] [phone] 03/25/2025 7:00 AM CDT Infusion Department of Oncology in [address] [address] Skip Amaya M.D., Ph.D. [address] [place] [phone] 03/29/2025 2:30 PM CDT Clinical Communication Virtual Review in [place], [place] [address] [place] [address] 04/01/2025 6:00 AM CDT Lab Department of Infusion Therapy in [address] [address] Skip Amaya M.D., Ph.D. [address] [place] [phone] 04/01/2025 8:20 AM CDT Office Visit Department of Oncology in [place], [place] [address] [place] [phone] Precious Hill M.D., Ph.D. [address] [place] [phone] 04/01/2025 9:00 AM CDT Infusion Department of Oncology in [place], [place] [address] [place] [phone] Skip Amaya M.D., Ph.D. [address] [place] [phone] 04/07/2025 11:00 AM CDT Lab Department of Infusion Therapy in [place], [place] [address] [place] [phone] Skip Amaya M.D., Ph.D. [address] [place] [phone] 04/07/2025 1:20 PM CDT Office Visit Department of Oncology in [address] [phone] Sandy Judge, KASH, C.N.P., M.S. [address] [place] [phone] 04/08/2025 7:00 AM CDT Infusion Department of Oncology in [place], [place] [address] [place] [phone] Skip Amaya M.D., Ph.D. [address] [place] [phone] 04/21/2025 7:15 AM CDT Clinical Communication Virtual Review in [place], [place] [address] [place] [address] 04/22/2025 7:20 AM CDT Lab Department of Infusion Therapy in [address] [address] Skip Amaya M.D., Ph.D. [address] [place] [phone] 04/22/2025 9:20 AM CDT Office Visit Department of Oncology in [address] [phone] Sandy Judge APRN, C.N.P., M.S. [address] [place] [phone] 04/22/2025 10:30 AM CDT Infusion Department of Oncology in [address] [address] Skip Amaya M.D., Ph.D. [address] [place] [phone] 04/29/2025 11:15 AM CDT Lab Department of Oncology in [address] [address] Skip Amaya M.D., Ph.D. [address] [place] [phone] 04/29/2025 1:20 PM CDT Office Visit Department of Oncology in [address] [phone] Sandy Judge APRN, C.N.P., M.S. [address] [place] [phone] 04/29/2025 2:00 PM CDT Infusion Department of Oncology in [address] [phone] Skip Amaya M.D., Ph.D. [address] [place] [address] documented as of this encounter Goals Goal [...] documented as of this encounter Care Teams Vice President Industrial Relations Relationship Specialty Start Date End Date Elsewhere, Pcp PCP - General Internal Medicine 09/09/23 documented as of this encounter
--- OUTSIDE RECORDS SUMMARY | 2025-02-06 12:47 | XMS_ITS | Encounter Summary ---
Author Organization [facility] Address [address] [place] [address] Care Team Providers Care Prism Inspector Name Role Phone Elsewhere, Pcp Primary Care Provider Unavailabl e Encounter Details Date Type Department Care Team (Late st Contact Info) Description 12/30/2024 Abstract [place], [place] [address] [place] [phone] Provider, Historical Social History Tobacco Use Types Packs/Day Years Used Date Smoking Tobacco: Never Passive Smoke Exposure: Past Smokeless Tobacco: Never Passive Exposure Comments:Ch ildhood exposure. Alcohol Use Standard Drinks/Week Comments Not Currently 1 (1 standard drink = 0.6 oz pur e alcohol) 0-1 drink per week [facility] Utilities Answer Date Recorded In the past 12 months has [employer], gas, oil, or water [employer] threatened to shut off services in your [...] your living situation today? I have a [facility] place to live 12/23/2024 Sex and Gender Information Value Date Recorded Sex Assigned at Male 09/10/2023 7:48 AM SENIOR IOS DEVELOPER Legal Sex Male 10:11 PM SENIOR IOS DEVELOPER Gender Identity Male 09/10/2023 7:48 AM SENIOR IOS DEVELOPER Sexual Orientation Straight 09/10/2023 7: 48 AM SENIOR IOS DEVELOPER documented as of this encounter Plan of Treatment Upcoming Encounters Date Type Department Care Team (Latest Contact Info) Description 02/08/2025 2:15 PM CDT Clinical Communication Virtual Review in [place], [place] [address] [place] [address] 02/09/2025 9:30 AM CDT Telemedicine Department of Oncology in [address] [phone] Jesica Wasserman M.B., B.Ch. [address] [place] [phone] Cecily Nash, L.I.C.S.W. [address] [place] [phone] 02/10/2025 12:00 PM CDT Lab Department of Infusion Therapy in [place], [place] [address] [place] [phone] Skip Amaya M.D., Ph.D. [address] [place] [phone] 02/10/2025 2:30 PM CDT Office Visit Department of Oncology in [place], [place] [address] [place] [phone] Rosenda Garza MPAS, P.A.-C. [address] [place] [phone] 02/11/2025 8:00 AM CDT Infusion Department of Oncology in [place], [place] [address] [place] [phone] Skip Amaya M.D., Ph.D. [address] [place] [phone] 02/23/2025 2:15 PM CDT Clinical Communication Virtual Review in [place], [place] 200 [place] [address] 02/25/2025 8:30 AM CDT Lab Department of Oncology in [place], [place] [address] [place] [phone] Skip Amaya M.D., Ph.D. [address] [place] [phone] 02/25/2025 10:40 AM CDT Office Visit Department of Oncology in [place], [place] [address] [place] [phone] Sandy Judge, KASH, C.N.P., M.S. [address] [place] [phone] 02/25/2025 11:30 AM CDT Infusion Department of Oncology in [address] [phone] Skip Amaya M.D., Ph.D. [address] [place] [phone] 03/04/2025 6:00 AM CDT Lab Department of Infusion Therapy in [address] [phone] Skip Amaya M.D., Ph.D. [address] [place] [phone] 03/04/2025 8:10 AM CDT Office Visit Department of Oncology in [address] [phone] Jie Shook P.A.-C. [address] [place] [phone] 03/04/2025 9:30 AM CDT Infusion Department of Oncology in [place], [place] [address] [place] [phone] Skip Amaya M.D., Ph.D. [address] [place] [phone] 03/10/2025 2:15 PM CDT Clinical Communication Virtual Review in [place], [place] 200 [place] [address] 03/11/2025 6:00 AM CDT Lab Department of Laboratory Medicine and Pathology, [facility] in [place], [place] [address] [place] [phone] Skip Amaya M.D., Ph.D. [address] [place] [phone] 03/11/2025 7:20 AM CDT Office Visit Department of Oncology in [address] [phone] Bipin Leal P.A.-C., M.S. [address] [place] [phone] 03/11/2025 8:00 AM CDT Infusion Department of Oncology in [address] [address] Skip Amaya M.D., Ph.D. [address] [place] [phone] 03/24/2025 7:30 AM CDT Appointment Department of Radiology, [facility] in [place], [place] [address] [place] [phone] Skip Amaya M.D., Ph.D. [address] [place] [phone] 03/24/2025 11:20 AM CDT Lab Department of Infusion Therapy in [place], [place] [address] [place] [phone] Skip Amaya M.D., Ph.D. [address] [place] [phone] 03/24/2025 1:30 PM CDT Office Visit Department of Oncology in [address] [phone] Skip Amaay M.D., Ph.D. [address] [place] [phone] 03/25/2025 7:00 AM CDT Infusion Department of Oncology in [address] [address] Skip Amaya M.D., Ph.D. [address] [place] [phone] 03/29/2025 2:30 PM CDT Clinical Communication Virtual Review in [address] [phone] 04/01/2025 6:00 AM CDT Lab Department of Infusion Therapy in [address] [address] Skip Amaya M.D., Ph.D. [address] [place] [phone] 04/01/2025 8:20 AM CDT Office Visit Department of Oncology in [address] [phone] Precious Hill M.D., Ph.D. [address] [place] [phone] 04/01/2025 9:00 AM CDT Infusion Department of Oncology in [place], [place] [address] [place] [phone] Skip Amaya M.D., Ph.D. [address] [place] [phone] 04/07/2025 11:00 AM CDT Lab Department of Infusion Therapy in [place], [place] [address] [place] [phone] Skip Amaya M.D., Ph.D. [address] [place] [phone] 04/07/2025 1:20 PM CDT Office Visit Department of Oncology in [place], [place] [address] [place] [phone] Sandy Judge APRN, C.N.P., M.S. [address] [place] [phone] 04/08/2025 7:00 AM CDT Infusion Department of Oncology in [place], [place] [address] [place] [phone] Skip Amaya M.D., Ph.D. [address] [place] [phone] 04/21/2025 7:15 AM CDT Clinical Communication Virtual Review in [place], [place] 200 [place] [address] 04/22/2025 7:20 AM CDT Lab Department of Infusion Therapy in [place], [place] [address] [place] [phone] Skip Amaya M.D., Ph.D. [address] [place] [phone] 04/22/2025 9:20 AM CDT Office Visit Department of Oncology in [place], [place] [address] [place] [phone] Sandy Judge APRN, C.N.P., M.S. [address] [place] [phone] 04/22/2025 10:30 AM CDT Infusion Department of Oncology in [address] [address] Skip Amaya M.D., Ph.D. [address] [place] [phone] 04/29/2025 11:15 AM CDT Lab Department of Oncology in [address] [address] Skip Amaya M.D., Ph.D. [address] [place] [phone] 04/29/2025 1:20 PM CDT Office Visit Department of Oncology in [address] [phone] Sandy Judge APRN, C.N.P., M.S. [address] [place] [phone] 04/29/2025 2:00 PM CDT Infusion Department of Oncology in [address] [phone] Skip Amaya M.D., Ph.D. [address] [place] [phone] documented as of this encounter Goals Goal Patient Goal Type Associated Problems Recent Progress Patient-Stated? Author Autogenerat ed Goal Care Plan Autogenerated Problem No Hedy Lees R.N. documented as of this encounter Visit Diagnoses Not on filedocumented in this encounter Additional Health Concerns Active Problems Noted Date Diagnosed Date Autogenerated Problem 11/16/2024 documented as of this encounter Care Teams Prism Inspector Relationship Specialty Start Date End Date Elsewhere, Pcp PCP - General Internal Medicine 09/09/23 documented as of this encounter
--- OUTSIDE RECORDS SUMMARY | 2025-02-06 12:47 | XMS_ITS | Encounter Summary ---
Author Organization [facility] Address [address] [place] [address] Care Team Providers Care Taco Maker Name Role Phone Elsewhere, Pcp Primary Care Provider Unavailabl e Encounter Details Date Type Department Care Team (Late st Contact Info) Description 01/10/2025 Clinical Communication Department of Oncology in [place], [place] [address] [place] [phone] Jesica Wasserman M.B., B.Ch. [address] [place] [phone] Social History Tobacco Use Types Packs/Day Years Used Date Smoking Tobacco: Never Passive Smoke Exposure: Past Smokeless Tobacco: Never Passive Exposure Comments: ildhood exposure. Alcohol Use Standard Drinks/Week Comments Not Currently 1 (1 standard drink = 0.6 oz pur e alcohol) 0-1 drink per week [facility] Utilities Answer Date Recorded In the past 12 months has [employer], gas, oil, or water company threatened [...] your living situation today? [facility] 12/23/2024 Education Answer Date Recorded What is the highest level of school you have completed or the highest degree you have received? Master's degree (e.g., MA, MS, Katelyn, MEd, FREIGHT MANAGER, KELLEE) 01/05/2025 Sex and Gender Information Value Date Recorded Sex Assigned at Male 09/10/2023 7:48 AM GRAPHIC ART SALES REPRESENTATIVE Legal Sex Male 10:11 PM GRAPHIC ART SALES REPRESENTATIVE Gender Identity Male 09/10/2023 7:48 AM GRAPHIC ART SALES REPRESENTATIVE Sexual Orientation Straight 09/10/2023 7: 48 AM GRAPHIC ART SALES REPRESENTATIVE documented as of this encounter Miscellaneous Notes * Telephone Encounter - Stephanie Jones R.N. - 01/10/2025 11:42 AM CDT This patient is scheduled for a port placement on 01/17/2025. Please address blood thinner holding with patient. Please use the following link for blood thinning management recommendations for radiology procedures. Radiology Anticoagulation Guideline - [facility] ([email or web address]) If the patient can safely [...] PM CDT Clinical Communication Virtual Review in [place], [place] [address] [place] [address] 02/09/2025 9:30 AM CDT Telemedicine Department of Oncology in [place], [place] [address] [place] [phone] Jesica Wasserman M.B., B.. [address] [place] [phone] Cecily Nash L.I.C.SJustynW. [address] [place] [phone] 02/10/2025 12:00 PM CDT Lab Department of Infusion Therapy in [place], [place] [address] [place] [phone] Skip Amaya M.D., Ph.D. [address] [place] [phone] 02/10/2025 2:30 PM CDT Office Visit Department of Oncology in [place], [place] [address] [place] [phone] Rosenda Garza, MORENA, P.A.-C. [address] [place] [phone] 02/11/2025 8:00 AM CDT Infusion Department of Oncology in [place], [place] [address] [place] [phone] Skip Amaya M.D., Ph.D. [address] [place] [phone] 02/23/2025 2:15 PM CDT Clinical Communication Virtual Review in [place], [place] 200 [place] [address] 02/25/2025 8:30 AM CDT Lab Department of Oncology in [place], [place] [address] [place] [phone] Skip Amaya M.D., Ph.D. [address] [place] [phone] 02/25/2025 10:40 AM CDT Office Visit Department of Oncology in [place], [place] [address] [place] [phone] Sandy Judge APRN, C.N.P., M.S. [address] [place] [phone] 02/25/2025 11:30 AM CDT Infusion Department of Oncology in [address] [phone] Skip Amaya M.D., Ph.D. [address] [place] [phone] 03/04/2025 6:00 AM CDT Lab Department of Infusion Therapy in [address] [phone] Skip Amaya M.D., Ph.D. [address] [place] [phone] 03/04/2025 8:10 AM CDT Office Visit Department of Oncology in [address] [phone] Jie Shook P.A.-C. [address] [place] [phone] 03/04/2025 9:30 AM CDT Infusion Department of Oncology in [address] [phone] Skip Amaya M.D., Ph.D. [address] [place] [phone] 03/10/2025 2:15 PM CDT Clinical Communication Virtual Review in [address] [phone] 03/11/2025 6:00 AM CDT Lab Department of Laboratory Medicine and Pathology, [facility] in [place], [place] [address] [place] [phone] Skip Amaya M.D., Ph.D. [address] [place] [phone] 03/11/2025 7:20 AM CDT Office Visit Department of Oncology in [place], [place] [address] [place] [phone] Bipin Leal P.A.-C., M.S. [address] [place] [phone] 03/11/2025 8:00 AM CDT Infusion Department of Oncology in [place], [place] [address] [place] [phone] Skip Amaya M.D., Ph.D. [address] [place] [phone] 03/24/2025 7:30 AM CDT Appointment Department of Radiology, [place] [facility], in [place], [place] [address] [place] [phone] Skip Amaya M.D., Ph.D. [address] [place] [phone] 03/24/2025 11:20 AM CDT Lab Department of Infusion Therapy in [place], [place] [address] [place] [phone] Skip Amaya M.D., Ph.D. [address] [place] [phone] 03/24/2025 1:30 PM CDT Office Visit Department of Oncology in [place], [place] [address] [place] [phone] Skip Amaya M.D., Ph.D. [address] [place] [phone] 03/25/2025 7:00 AM CDT Infusion Department of Oncology in [place], [place] [address] [place] [phone] Skip Amaya M.D., Ph.D. [address] [place] [phone] 03/29/2025 2:30 PM CDT Clinical Communication Virtual Review in [place], [place] [address] [place] [address] 04/01/2025 6:00 AM CDT Lab Department of Infusion Therapy in [place], [place] [address] [place] [phone] Skip Amaya M.D., Ph.D. [address] [place] [phone] 04/01/2025 8:20 AM CDT Office Visit Department of Oncology in [place], [place] [address] [place] [phone] Precious Hill M.D., Ph.D. [address] [place] [phone] 04/01/2025 9:00 AM CDT Infusion Department of Oncology in [place], [place] [address] [place] [phone] Skip Amaya M.D., Ph.D. [address] [place] [phone] 04/07/2025 11:00 AM CDT Lab Department of Infusion Therapy in [address] [phone] Skip Amaya M.D., Ph.D. [address] [place] [phone] 04/07/2025 1:20 PM CDT Office Visit Department of Oncology in [place], [place] [address] [place] [phone] Sandy Judge APRN, Jordy.N.Bhavin., M.S. [address] [place] [phone] 04/08/2025 7:00 AM CDT Infusion Department of Oncology in [place], [place] [address] [place] [phone] Skip Amaya M.D., Ph.D. [address] [place] [phone] 04/21/2025 7:15 AM CDT Clinical Communication Virtual Review in [place], [place] [address] [place] [address] 04/22/2025 7:20 AM CDT Lab Department of Infusion Therapy in [place], [place] [address] [place] [phone] Skip Amaya M.D., Ph.D. [address] [place] [phone] 04/22/2025 9:20 AM CDT Office Visit Department of Oncology in [place], [place] [address] [place] [phone] Sandy Judge APRN, Jordy.N.P., M.S. [address] [place] [phone] 04/22/2025 10:30 AM CDT Infusion Department of Oncology in [place], [place] [address] [place] [phone] Skip Amaya M.D., Ph.D. [address] [place] [phone] 04/29/2025 11:15 AM CDT Lab Department of Oncology in [place], [place] [address] [place] [phone] Skip Amaya M.D., Ph.D. [address] [place] [phone] 04/29/2025 1:20 PM CDT Office Visit Department of Oncology in [place], [place] [address] [place] [phone] Sandy uJdge APRN, C.N.P., M.S. [address] [place] [phone] 04/29/2025 2:00 PM CDT Infusion Department of Oncology in [place], [place] [address] [place] [phone] Skip Amaya M.D., Ph.D. [address] [place] [phone] documented as of this encounter Goals Goal [...] documented as of this encounter Care Teams Taco Maker Relationship Specialty Start Date End Date Elsewhere, Pcp PCP - General Internal Medicine 09/09/23 documented as of this encounter
--- OUTSIDE RECORDS SUMMARY | 2025-02-06 12:48 | XMS_ITS | Encounter Summary ---
Author Organization [facility] Address [address] [place] [address] Care Team Providers Care Rocket Scientist Name Role Phone Elsewhere, Pcp Primary Care Provider Unavailabl e Reason for Referral * Outpatient (Routine) - Closed Specialty Diagnoses / Procedures Referred By Contac t Referred To Contact Oncology Diagnoses Malignant Neoplasm Of Pancreas Tail (HCC) Skip Amaya M.D., Ph.D. 200 [place] [address] Phone: tel: fax: [facility] Referral ID Status Reason Start Date Expiration Date Visits Re quested Visits Authorized [id number] Closed 01/20/2025 07/22/2026 1 1 * Outpatient (Routine) - Closed Specialty Diagnoses / Procedures Referred By Contac t Referred To Contact Diagnoses Malignant Neoplasm Of Pancreas Tail (HCC) Procedures ECG 12 Lead WI EKG 12 LEAD W I&R Skip Amaya M.D., Ph.D. [address] [place] [phone] Phone: tel: fax: [facility] Referral ID Status Reason Start Date Expiration Date Visits Re quested Visits Authorized [id number] Closed 01/20/2025 04/22/2026 1 1 * Outpatient (Routine) - Closed Specialty Diagnoses / Procedures Referred By Contac t Referred To Contact Diagnoses Malignant Neoplasm Of Pancreas Tail (HCC) Procedures ECG 12 Lead WI EKG 12 LEAD W I&R Skip Amaya M.D., Ph.D. [address] [place] [phone] Phone: tel: fax: [facility] Referral ID Status Reason Start Date Expiration Date Visits Re quested Visits Authorized [id number] Closed 01/20/2025 04/22/2026 1 1 * Outpatient (Routine) - Closed Specialty Diagnoses / Procedures Referred By Meeta carlisle Referred To Contact Diagnoses Malignant Neoplasm Of Pancreas Tail (HCC) Procedures ECG 12 Lead WI EKG 12 LEAD W I&R Skip Amaya M.D., Ph.D. [address] [place] [phone] Phone: tel: fax: [facility] Referral ID Status Reason Start Date Expiration Date Visits Re quested Visits Authorized [id number] Closed 01/20/2025 04/22/2026 1 1 Encounter Details Date Type Department Care Team (Late st Contact Info) Description 01/20/2025 Orders Only Department of Oncology in [place], [place] [address] [place] [phone] Lissett Gordillo [address] [place] [phone] 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) Social History Tobacco Use Types Packs/Day Years Used Date Smoking Tobacco: Never Passive Smoke Exposure: Past Smokeless Tobacco: Never Passive Exposure Comments:Ch ildhood exposure. Alcohol Use Standard Drinks/Week Comments Not Currently 1 (1 standard drink = 0.6 oz pur e alcohol) 0-1 drink per week [facility] Utilities Answer Date Recorded In the [...] for behavioral medicine place to live 12/23/2024 Education Answer Date Recorded What is the highest level of school you have completed or the highest degree you have received? Master's degree (e.g., MA, MS, Katelyn, MEd, AUDIO VISUAL DIRECTOR, KELLEE) 01/05/2025 Sex and Gender Information Value Date Recorded Sex Assigned at Male 09/10/2023 7:48 AM CURED MEATS SUPERVISOR Legal Sex Male 10:11 PM CURED MEATS SUPERVISOR Gender Identity Male 09/10/2023 7:48 AM CURED MEATS SUPERVISOR Sexual Orientation Straight 09/10/2023 7: 48 AM CURED MEATS SUPERVISOR documented as of this encounter Plan of Treatment Upcoming Encounters Date Type Department Care Team (Latest Contact Info) Description 02/08/2025 2:15 PM CDT Clinical Communication Virtual Review in [place], [place] [address] [place] [address] 02/09/2025 9:30 AM CDT Telemedicine Department of Oncology in [address] [phone] Jesica Wasserman M.B., B.Ch. [address] [place] [phone] Cecily Nash L.I.C.S.W. [address] [place] [phone] 02/10/2025 12:00 PM CDT Lab Department of Infusion Therapy in [address] [address] Skip Amaya M.D., Ph.D. [address] [place] [phone] 02/10/2025 2:30 PM CDT Office Visit Department of Oncology in [address] [phone] Rosenda Garza MPAS, P.A.-C. [address] [place] [phone] 02/11/2025 8:00 AM CDT Infusion Department of Oncology in [address] [phone] Skip Amaya M.D., Ph.D. [address] [place] [phone] 02/23/2025 2:15 PM CDT Clinical Communication Virtual Review in [address] [phone] 02/25/2025 8:30 AM CDT Lab Department of Oncology in [address] [address] Skip Amaya M.D., Ph.D. [address] [place] [phone] 02/25/2025 10:40 AM CDT Office Visit Department of Oncology in [address] [phone] Sandy Judge APRN, C.NYoselin., M.S. [address] [place] [phone] 02/25/2025 11:30 AM CDT Infusion Department of Oncology in [place], [place] [address] [place] [phone] Skip Amaya M.D., Ph.D. [address] [place] [phone] 03/04/2025 6:00 AM CDT Lab Department of Infusion Therapy in [place], [place] [address] [place] [phone] Skip Amaya M.D., Ph.D. [address] [place] [phone] 03/04/2025 8:10 AM CDT Office Visit Department of Oncology in [address] [phone] Jie Shook P.A.-C. [address] [place] [phone] 03/04/2025 9:30 AM CDT Infusion Department of Oncology in [address] [phone] Skip Amaya M.D., Ph.D. [address] [place] [phone] 03/10/2025 2:15 PM CDT Clinical Communication Virtual Review in [address] [phone] 03/11/2025 6:00 AM CDT Lab Department of Laboratory Medicine and Pathology, [facility], in [address] [phone] Skip Amaya M.D., Ph.D. [address] [place] [phone] 03/11/2025 7:20 AM CDT Office Visit Department of Oncology in [place], [place] [address] [place] [phone] Bipin Leal P.A.-C., M.S. [address] [place] [phone] 03/11/2025 8:00 AM CDT Infusion Department of Oncology in [place], [place] [address] [place] [phone] Skip Amaya M.D., Ph.D. [address] [place] [phone] 03/24/2025 7:30 AM CDT Appointment Department of Radiology, [facility] in [place], [place] [address] [place] [phone] Skip Amaya M.D., Ph.D. [address] [place] [phone] 03/24/2025 11:20 AM CDT Lab Department of Infusion Therapy in [place], [place] [address] [place] [phone] Skip Amaya M.D., Ph.D. [address] [place] [phone] 03/24/2025 1:30 PM CDT Office Visit Department of Oncology in [place], [place] [address] [place] [phone] Skip Amaya M.D., Ph.D. [address] [place] [phone] 03/25/2025 7:00 AM CDT Infusion Department of Oncology in [place], [place] [address] [place] [phone] Skip Amaya M.D., Ph.D. [address] [place] [phone] 03/29/2025 2:30 PM CDT Clinical Communication Virtual Review in [place], [place] 200 [place] [address] 04/01/2025 6:00 AM CDT Lab Department of Infusion Therapy in [address] [address] Skip Amaya M.D., Ph.D. [address] [place] [phone] 04/01/2025 8:20 AM CDT Office Visit Department of Oncology in [address] [phone] Precious Hill M.D., Ph.D. [address] [place] [phone] 04/01/2025 9:00 AM CDT Infusion Department of Oncology in [address] [address] Skip Amaya M.D., Ph.D. [address] [place] [phone] 04/07/2025 11:00 AM CDT Lab Department of Infusion Therapy in [address] [address] Skip Amaya M.D., Ph.D. [address] [place] [phone] 04/07/2025 1:20 PM CDT Office Visit Department of Oncology in [address] [phone] Sandy Judge APRN, C.N.P., M.S. [address] [place] [phone] 04/08/2025 7:00 AM CDT Infusion Department of Oncology in [place], [place] [address] [place] [phone] Skip Amaya M.D., Ph.D. [address] [place] [phone] 04/21/2025 7:15 AM CDT Clinical Communication Virtual Review in [place], [place] 200 [place] [address] 04/22/2025 7:20 AM CDT Lab Department of Infusion Therapy in [place], [place] [address] [place] [phone] Skip Amaya M.D., Ph.D. [address] [place] [phone] 04/22/2025 9:20 AM CDT Office Visit Department of Oncology in [place], [place] [address] [place] [phone] Sandy Judge APRN, Jordy.N.P., M.S. [address] [place] [phone] 04/22/2025 10:30 AM CDT Infusion Department of Oncology in [place], [place] [address] [place] [phone] Skip Amaya M.D., Ph.D. [address] [place] [phone] 04/29/2025 11:15 AM CDT Lab Department of Oncology in [place], [place] [address] [place] [phone] Skip Amaya M.D., Ph.D. [address] [place] [phone] 04/29/2025 1:20 PM CDT Office Visit Department of Oncology in [place], [place] [address] [place] [phone] Sandy Judge APRN, C.N.P., M.S. [address] [place] [phone] 04/29/2025 2:00 PM CDT Infusion Department of Oncology in [place], [place] [address] [place] [phone] Skip Amaya M.D., Ph.D. [address] [place] [phone] Scheduled Referrals Name Type Priority Associated Diagnoses [...] CDT) Ventricular Rate ECG/Min 82 BPM MUSE WI Interval 130 ms MUSE QRSD Interval 88 ms MUSE QT Interval 420 ms MUSE QTC Interval 490 ms MUSE P [place] 53 degrees MUSE R [place] 42 degrees MUSE T Wave [place] 78 degrees MUSE 01/21/2025 10:4 1 AM [...] no longer evident Reviewed by KITA Joyce Skip Amaya M.D., Ph.D. ECG ORDERABLES Final Re sult Performing Organization Address [facility] de Phone Number MUSE NA * ECG 12 Lead (01/21/2025 10:40 AM CDT) Ventricular Rate ECG/Min 84 BPM MUSE WI Interval 138 ms MUSE QRSD Interval 88 ms MUSE QT Interval 410 ms MUSE QTC Interval 484 ms MUSE P [place] 54 degrees MUSE R [place] 39 degrees MUSE T Wave [place] 70 degrees MUSE 01/21/2025 10:4 0 AM [...] ORDERABLES Final Re sult Performing Organization Address [facility] Co de Phone Number MUSE NA * ECG 12 Lead (01/21/2025 10:39 AM CDT) Ventricular Rate ECG/Min 82 BPM MUSE WI Interval 132 ms MUSE QRSD Interval 88 ms MUSE QT Interval 418 ms MUSE QTC Interval 488 ms MUSE P [place] 59 degrees MUSE R [place] 43 degrees MUSE T Wave [place] 78 degrees MUSE 01/21/2025 10:3 9 AM [...] ORDERABLES Final Re sult Performing Organization Address [facility] Co de Phone Number MUSE NA * APTT (Activated Partial Thromboplastin Time) (01/21/2025 7:52 AM CDT) [facility] Activated Partial Thrombopl Time, P 27 25 - 37 sec 01/21/2025 8:43 AM CDT DTL Blood (Blood, Venous) 01/21/2025 7:52 AM CDT 01/21/2025 8:21 AM CDT Skip Amaya M.D., Ph.D. LAB BLOOD ADD-ON Final R esult Performing Organization Address City/[facility]/ZIP Co de Phone Number [facility] [address] [place] [address], [facility] DTFormerly named [facility] [address] [place] [address] * Prothrombin Time (PT) (01/21/2025 7:52 AM CDT) [facility] Prothrombin Time, P 11.5 9.4 - 12.5 sec 01/21/2025 8:43 AM CDT DTL INR 1.0 0.9 - 1.1 01/21/2025 8:43 AM CDT DTL Comment: ----ADDITIONAL INFORMATION---- Standard intensity warfarin therapeutic range: 2.0 to 3.0 High intensity warfarin therapeutic range: 2.5 to 3.5 Blood (Blood, Venous) 01/21/2025 7:52 AM CDT 01/21/2025 8:21 AM CDT us Skip Amaya M.D., Ph.D. LAB BLOOD ADD-ON Final R on license of [facility] Performing Organization Address City/[facility] Co de Phone Number [facility] [address] [place] [address] * Phosphorus Inorganic (01/21/2025 7:51 AM CDT) Pathologist [facility] Phosphorus (Inorganic), S 3.5 2.5 - 4.5 mg/dL 01/21/2025 8:57 AM CDT DTL Blood (Blood, Venous) 01/21/2025 7:51 AM CDT 01/21/2025 8:21 AM CDT us Skip Amaya M.D., Ph.D. LAB BLOOD ADD-ON Final R on license of [facility] Performing Organization Address City/[facility] Co de Phone Number [facility] [address] [place] [address] * Magnesium (01/21/2025 7:51 AM CDT) Magnesium, S 2.1 1.7 - 2.3 mg/dL 01/21/2025 8:57 AM CDT DTL Blood (Blood, Venous) 01/21/2025 7:51 AM CDT 01/21/2025 8:21 AM CDT us Skip Amaya M.D., Ph.D. LAB BLOOD ADD-ON Final R esult Performing Organization Address City/[facility]/[place] [address] * LD (Lactate Dehydrogenase) (01/21/2025 7:51 AM CDT) [facility] LD 144 122 - 222 U/L 01/21/2025 9:14 AM CDT DTL Blood (Blood, Venous) 01/21/2025 7:51 AM CDT 01/21/2025 8:20 AM CDT Skip Amaya M.D., Ph.D. LAB BLOOD NON ADD-ON Fin al Result Performing Organization Address [facility] [place] [address] * (ABNORMAL) Comprehensive Metabolic Panel (01/21/2025 7:51 AM CDT) [facility] Potassium, S 4.2 3.6 - 5.2 [...] Ph.D. LAB BLOOD ADD-ON Final R esult [facility] [address] [place] [address], [facility] DTFormerly named [facility] [address] [place] [address] * (ABNORMAL) CBC with Differential, Blood (01/21/2025 [...] Ph.D. LAB BLOOD ADD-ON Final R esult [facility] [address] [place] [address], [facility] DTL [facility] [address] [place] [address] [facility] [address] [place] [address] * (ABNORMAL) Carbohydrate Antigen 19-9 (CA 19-9) (01/21/2025 7:51 AM CDT) Carbohydrate Ag 19-9, S 04674(H) <35 U/mL 01/21/2025 1:01 PM CDT [facility] Comment: ----ADDITIONAL INFORMATION---- The testing method is an immunoenzymatic assay manufactured by [employer] and performed on the [employer] DxI 800. Values obtained with different assay methods or kits may be different and cannot be used interchangeably. Test results cannot be interpreted as absolute evidence for the presence or absence of malignant disease. Blood (Blood, Venous) 01/21/2025 7:51 AM CDT 01/21/2025 11:31 AM CDT Skip Amaya M.D., Ph.D. LAB BLOOD ADD-ON Final R esult [facility] [address] [place] [address] [facility] [address] [place] [id number] documented in this encounter Visit Diagnoses Diagnosis Malignant Neoplasm Of Pancreas Tail (HCC)- Primary documented in this encounter Additional Health Concerns Active Problems Noted Date Diagnosed Date Autogenerated Problem 11/16/2024 Infection Onset Date Last Indicated Resolved Time Protective Environment 01/28/2025 01/28/2025 Assessment Noted Time PHQ-9 Depression Total Score: 7 01/12/20 9:53 AM CDT documented as of this encounter Care Teams Rocket Scientist Relationship Specialty Start Date End Date Elsewhere, Pcp PCP - General Internal Medicine 09/09/23 documented as of this encounter
--- OUTSIDE RECORDS SUMMARY | 2025-02-06 12:48 | XMS_ITS | Encounter Summary ---
Author Organization [facility] Address [address] [place] [address] Care Team Providers Care Parts Salesperson Name Role Phone Elsewhere, Pcp Primary Care Provider Unavailabl e Reason for Visit * Reason Comments Genetic Testing Results Encounter Details Date Type Department Care Team (Late st Contact Info) Description 01/11/2025 Documentation Department of Medical Genetics in [place], [place] [address] [place] [address] Criselda Hagen, [facility] [place] Genetic Testing Results Social History Tobacco Use Types Packs/Day Years Used Date Smoking Tobacco: Never Passive Smoke Exposure: Past Smokeless Tobacco: Never Passive Exposure Comments:Ch ildhood exposure. Alcohol Use Standard Drinks/Week Comments Not Currently 1 (1 standard drink = 0.6 oz pur e alcohol) 0-1 drink per week [facility] Utilities Answer Date Recorded In the past 12 months has e Ticket[employer], gas, oil, or water Cree threatened to shut off services in your [...] Master's degree (e.g., MA, MS, Katelyn, MEd, STONECUTTER ASSISTANT, KELLEE) 01/05/2025 Sex and Gender Information Value Date Recorded Sex Assigned at Male 09/10/2023 7:48 AM CRITICAL CARE PARAMEDIC Legal Sex Male 10:11 PM CRITICAL CARE PARAMEDIC Gender Identity Male 09/10/2023 7:48 AM CRITICAL CARE PARAMEDIC Sexual Orientation Straight 09/10/2023 7: 48 AM CRITICAL CARE PARAMEDIC documented as of this encounter Progress Notes [...] pursue the Multi-Cancer + RNA panel through [facility]. These results were communicated to the patient via the patient online services portal by our genetic counseling behavioral assistant. RESULTS Germline genetic testing included sequence [...] in the RET gene, specifically named c.1737C>G (p.Sip043Gfd). A VUS is a change in the [...] screening recommendations, suchas those made by the [place] [employer], do remain appropriate. FOLLOW UP/RECOMMENDATIONS [...] PM CDT Clinical Communication Virtual Review in [place], [place] 200 [place] [address] 02/09/2025 9:30 AM CDT Telemedicine Department of Oncology in [address] [phone] Jesica Wasserman M.B., B.Ch. [address] [place] [phone] Cecily Nash L.I.C.SJustynWJustyn [address] [place] [phone] 02/10/2025 12:00 PM CDT Lab Department of Infusion Therapy in [address] [address] Skip Amaya M.D., Ph.D. [address] [place] [phone] 02/10/2025 2:30 PM CDT Office Visit Department of Oncology in [address] [address] Rosenda Garza MPAS, P.A.-C. [address] [place] [phone] 02/11/2025 8:00 AM CDT Infusion Department of Oncology in [address] [address] Skip Amaya M.D., Ph.D. [address] [place] [phone] 02/23/2025 2:15 PM CDT Clinical Communication Virtual Review in [place], [place] [address] [place] [address] 02/25/2025 8:30 AM CDT Lab Department of Oncology in [place], [place] [address] [place] [phone] Skip Amaya M.D., Ph.D. [address] [place] [phone] 02/25/2025 10:40 AM CDT Office Visit Department of Oncology in [address] [address] Sandy Judge, KASH, C.N.P., M.S. [address] [place] [phone] 02/25/2025 11:30 AM CDT Infusion Department of Oncology in [address] [address] Skip Amaya M.D., Ph.D. [address] [place] [phone] 03/04/2025 6:00 AM CDT Lab Department of Infusion Therapy in [address] [address] Skip Amaya M.D., Ph.D. [address] [place] [phone] 03/04/2025 8:10 AM CDT Office Visit Department of Oncology in [address] [address] Jie Shook P.A.-C. [address] [place] [phone] 03/04/2025 9:30 AM CDT Infusion Department of Oncology in [place], [place] [address] [place] [address] Skip Amaya M.D., Ph.D. [address] [place] [phone] 03/10/2025 2:15 PM CDT Clinical Communication Virtual Review in [place], [place] [address] [place] [address] 03/11/2025 6:00 AM CDT Lab Department of Laboratory Medicine and Pathology, [facility] in [place], [place] [address] [place] [phone] Skip Amaya M.D., Ph.D. [address] [place] [phone] 03/11/2025 7:20 AM CDT Office Visit Department of Oncology in [address] [address] Bipin Leal, John.-Jordy., M.S. [address] [place] [phone] 03/11/2025 8:00 AM CDT Infusion Department of Oncology in [address] [address] Skip Amaya M.D., Ph.D. [address] [place] [phone] 03/24/2025 7:30 AM CDT Appointment Department of Radiology, [facility], in [address] [address] Skip Amaya M.D., Ph.D. [address] [place] [phone] 03/24/2025 11:20 AM CDT Lab Department of Infusion Therapy in [address] [address] Skip Amaya M.D., Ph.D. [address] [place] [phone] 03/24/2025 1:30 PM CDT Office Visit Department of Oncology in [address] [address] Skip Amaya M.D., Ph.D. [address] [place] [phone] 03/25/2025 7:00 AM CDT Infusion Department of Oncology in [address] [address] Skip Amaya M.D., Ph.D. [address] [place] [phone] 03/29/2025 2:30 PM CDT Clinical Communication Virtual Review in [address] [address] 04/01/2025 6:00 AM CDT Lab Department of Infusion Therapy in [address] [address] Skip Amaya M.D., Ph.D. [address] [place] [phone] 04/01/2025 8:20 AM CDT Office Visit Department of Oncology in [address] [address] Precious Hill M.D., Ph.D. [address] [place] [phone] 04/01/2025 9:00 AM CDT Infusion Department of Oncology in [address] [address] Skip Amaya M.D., Ph.D. [address] [place] [phone] 04/07/2025 11:00 AM CDT Lab Department of Infusion Therapy in [place], [place] [address] [place] [phone] Skip Amaya M.D., Ph.D. [address] [place] [phone] 04/07/2025 1:20 PM CDT Office Visit Department of Oncology in [place], [place] [address] [place] [phone] Sandy Judge APRN, C.N.P., M.S. [address] [place] [phone] 04/08/2025 7:00 AM CDT Infusion Department of Oncology in [place], [place] [address] [place] [phone] Skip Amaya M.D., Ph.D. [address] [place] [phone] 04/21/2025 7:15 AM CDT Clinical Communication Virtual Review in [place], [place] [address] [place] [address] 04/22/2025 7:20 AM CDT Lab Department of Infusion Therapy in [place], [place] [address] [place] [phone] Skip Amaya M.D., Ph.D. [address] [place] [phone] 04/22/2025 9:20 AM CDT Office Visit Department of Oncology in [place], [place] [address] [place] [phone] Sandy Judge APRN, C.NYoselin., M.S. [address] [place] [phone] 04/22/2025 10:30 AM CDT Infusion Department of Oncology in [place], [place] [address] [place] [phone] Skip Amaya M.D., Ph.D. [address] [place] [phone] 04/29/2025 11:15 AM CDT Lab Department of Oncology in [address] [address] Skip Amaya M.D., Ph.D. [address] [place] [phone] 04/29/2025 1:20 PM CDT Office Visit Department of Oncology in [address] [address] Sandy Judge APRN, C.N.P., M.S. [address] [place] [phone] 04/29/2025 2:00 PM CDT Infusion Department of Oncology in [address] [address] Skip Amaya M.D., Ph.D. [address] [place] [phone] documented as of this encounter Goals Goal [...] as of this encounter Care Teams Parts Salesperson Relationship Specialty Start Date End Date Elsewhere, Pcp PCP - General Internal Medicine 09/09/23 documented as of this encounter
--- OUTSIDE RECORDS SUMMARY | 2025-02-06 12:48 | XMS_ITS | Encounter Summary ---
Author Organization [facility] Address [address] [place] [address] Care Team Providers Care Rivet Thrower Name Role Phone Elsewhere, Pcp Primary Care Provider Unavailabl e Reason for Referral * MRI/CAT/PET Scan (Routine) - Closed Specialty Diagnoses / Procedures Referred By Contac t Referred To Contact Radiology Diagnoses Malignant Neoplasm Of Pancreas Tail (HCC) Procedures CT Abdomen Pelvis with IV Contrast Skip Amaya M.D., Ph.D. [address] [place] [phone] Phone: tel: fax: [facility] Referral ID Status Reason Start Date Expiration Date Visits Re quested Visits Authorized [id number] Closed 01/19/2025 04/21/2026 1 1 * MRI/CAT/PET Scan (Routine) - Closed Specialty Diagnoses / Procedures Referred By Contac t Referred To Contact Radiology Diagnoses Malignant Neoplasm Of Pancreas Tail (HCC) Procedures CT Chest with IV Contrast Skip Amaya M.D., Ph.D. [address] [place] [phone] Phone: tel: fax: [facility] Referral ID Status Reason Start Date Expiration Date Visits Re quested Visits Authorized [id number] Closed 01/19/2025 04/21/2026 1 1 * MRI/CAT/PET Scan (Routine) - Authorized Specialty Diagnoses / Procedures Referred By Contac t Referred To Contact Radiology Diagnoses Malignant Neoplasm Of Pancreas Tail (HCC) Procedures CT Abdomen Pelvis with IV Contrast Skip Amaya M.D., Ph.D. [address] [place] [phone] Phone: tel: fax: [facility] Referral ID Status Reason Start Date Expiration Date V isits Requested Visits Authorized [id number] Authorized 01/19/2025 04/21/2026 1 1 * MRI/CAT/PET Scan (Routine) - Authorized Specialty Diagnoses / Procedures Referred By Contac t Referred To Contact Radiology Diagnoses Malignant Neoplasm Of Pancreas Tail (HCC) Procedures CT Chest with IV Contrast Skip Amaya M.D., Ph.D. [address] [place] [phone] Phone: tel: fax: [facility] Referral ID Status Reason Start Date Expiration Date V isits Requested Visits Authorized [id number] Authorized 01/19/2025 04/21/2026 1 1 * MRI/CAT/PET Scan (Routine) - Closed Specialty Diagnoses / Procedures Referred By Contac t Referred To Contact Radiology Diagnoses Malignant Neoplasm Of Pancreas Tail (HCC) Procedures CT Head without and with IV Contrast Skip Amaya M.D., Ph.D. [address] [place] [phone] Phone: tel: fax: [facility] Referral ID Status Reason Start Date Expiration Date Visits Re quested Visits Authorized [id number] Closed 01/19/2025 04/21/2026 1 1 Encounter Details Date Type Department Care Team (Late st Contact Info) Description 01/19/2025 Orders Only Department of Oncology in [place], [place] [address] [place] [address] Rand Lissett M [address] [place] [address] 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) Social History Tobacco Use Types Packs/Day Years Used Date Smoking Tobacco: Never Passive Smoke Exposure: Past Smokeless Tobacco: Never Passive Exposure Comments:Ch ildhood exposure. Alcohol Use Standard Drinks/Week Comments Not Currently 1 (1 standard drink = 0.6 oz pur e alcohol) 0-1 drink per week [facility] Utilities Answer Date Recorded In the [...] Master's degree (e.g., MA, MS, Katelyn, MEd, DIGITAL MEDIA DIRECTOR, KELLEE) 01/05/2025 Sex and Gender Information Value Date Recorded Sex Assigned at Male 09/10/2023 7:48 AM SOLAR DEVELOPMENT ENGINEER Legal Sex Male 10:11 PM SOLAR DEVELOPMENT ENGINEER Gender Identity Male 09/10/2023 7:48 AM SOLAR DEVELOPMENT ENGINEER Sexual Orientation Straight 09/10/2023 7: 48 AM SOLAR DEVELOPMENT ENGINEER documented as of this encounter Plan of Treatment Upcoming Encounters Date Type Department Care Team (Latest Contact Info) Description 02/08/2025 2:15 PM CDT Clinical Communication Virtual Review in [place], [place] [address] [place] [address] 02/09/2025 9:30 AM CDT Telemedicine Department of Oncology in [address] [phone] Jesica Wasserman M.B., B.Ch. [address] [place] [phone] Cecily Nash L.I.C.SJustynWJustyn [address] [place] [phone] 02/10/2025 12:00 PM CDT Lab Department of Infusion Therapy in [address] [address] Skip Amaya M.D., Ph.D. [address] [place] [phone] 02/10/2025 2:30 PM CDT Office Visit Department of Oncology in [address] [address] Rosenda Garza MPAS, P.A.-C. [address] [place] [phone] 02/11/2025 8:00 AM CDT Infusion Department of Oncology in [address] [address] Skip Amaya M.D., Ph.D. [address] [place] [phone] 02/23/2025 2:15 PM CDT Clinical Communication Virtual Review in [place], [place] [address] [place] [address] 02/25/2025 8:30 AM CDT Lab Department of Oncology in [place], [place] [address] [place] [phone] Skip Amaya M.D., Ph.D. [address] [place] [phone] 02/25/2025 10:40 AM CDT Office Visit Department of Oncology in [address] [phone] Sandy Judge, KASH, C.N.P., M.S. [address] [place] [phone] 02/25/2025 11:30 AM CDT Infusion Department of Oncology in [address] [address] Skip Amaya M.D., Ph.D. [address] [place] [phone] 03/04/2025 6:00 AM CDT Lab Department of Infusion Therapy in [address] [address] Skip Amaya M.D., Ph.D. [address] [place] [phone] 03/04/2025 8:10 AM CDT Office Visit Department of Oncology in [address] [address] Jie Shook P.A.-C. [address] [place] [phone] 03/04/2025 9:30 AM CDT Infusion Department of Oncology in [place], [place] [address] [place] [phone] Skip Amaya M.D., Ph.D. [address] [place] [phone] 03/10/2025 2:15 PM CDT Clinical Communication Virtual Review in [place], [place] [address] [place] [address] 03/11/2025 6:00 AM CDT Lab Department of Laboratory Medicine and Pathology, [facility] in [place], [place] [address] [place] [phone] Skip Amaya M.D., Ph.D. [address] [place] [phone] 03/11/2025 7:20 AM CDT Office Visit Department of Oncology in [place], [place] [address] [place] [phone] Bipin Leal P.A.-C., M.S. [address] [place] [phone] 03/11/2025 8:00 AM CDT Infusion Department of Oncology in [address] [address] Skip Amaya M.D., Ph.D. [address] [place] [phone] 03/24/2025 7:30 AM CDT Appointment Department of Radiology, [facility], in [address] [address] Skip Amaya M.D., Ph.D. [address] [place] [phone] 03/24/2025 11:20 AM CDT Lab Department of Infusion Therapy in [place], [place] [address] [place] [phone] Skip Amaya M.D., Ph.D. [address] [place] [phone] 03/24/2025 1:30 PM CDT Office Visit Department of Oncology in [place], [place] [address] [place] [phone] Skip Amaya M.D., Ph.D. [address] [place] [phone] 03/25/2025 7:00 AM CDT Infusion Department of Oncology in [place], [place] [address] [place] [phone] Skip Amaya M.D., Ph.D. [address] [place] [phone] 03/29/2025 2:30 PM CDT Clinical Communication Virtual Review in [address] [address] 04/01/2025 6:00 AM CDT Lab Department of Infusion Therapy in [address] [address] Skip Amaya M.D., Ph.D. [address] [place] [phone] 04/01/2025 8:20 AM CDT Office Visit Department of Oncology in [address] [address] Precious Hill M.D., Ph.D. [address] [place] [phone] 04/01/2025 9:00 AM CDT Infusion Department of Oncology in [address] [address] Skip Amaya M.D., Ph.D. [address] [place] [phone] 04/07/2025 11:00 AM CDT Lab Department of Infusion Therapy in [place], [place] [address] [place] [phone] Skip Amaya M.D., Ph.D. [address] [place] [phone] 04/07/2025 1:20 PM CDT Office Visit Department of Oncology in [place], [place] [address] [place] [phone] Sandy Judge APRN, C.N.P., M.S. [address] [place] [phone] 04/08/2025 7:00 AM CDT Infusion Department of Oncology in [place], [place] [address] [place] [phone] Skip Amaya M.D., Ph.D. [address] [place] [phone] 04/21/2025 7:15 AM CDT Clinical Communication Virtual Review in [place], [place] [address] [place] [address] 04/22/2025 7:20 AM CDT Lab Department of Infusion Therapy in [place], [place] [address] [place] [phone] Skip Amaya M.D., Ph.D. [address] [place] [phone] 04/22/2025 9:20 AM CDT Office Visit Department of Oncology in [place], [place] [address] [place] [phone] Sandy Judge APRN, C.N.P., M.S. [address] [place] [phone] 04/22/2025 10:30 AM CDT Infusion Department of Oncology in [place], [place] [address] [place] [phone] Skip Amaya M.D., Ph.D. [address] [place] [phone] 04/29/2025 11:15 AM CDT Lab Department of Oncology in [place], [place] [address] [place] [phone] Skip Amaya M.D., Ph.D. [address] [place] [phone] 04/29/2025 1:20 PM CDT Office Visit Department of Oncology in [place], [place] [address] [place] [phone] Sandy Judge APRN, C.N.P., M.S. [address] [place] [phone] 04/29/2025 2:00 PM CDT Infusion Department of Oncology in [place], [place] [address] [place] [phone] Skip Amaya M.D., Ph.D. [address] [place] [phone] Scheduled Orders Name Type Priority Associated Diagnoses [...] Care Plan Autogenerated Problem No Hedy Lees RJustynN. documented as of this encounter Results [...] without contrast dated 02/08/2024 and [facility] head CT dated 11/27/2023. FINDINGS: The [...] without contrast dated 02/08/2024 and [facility] head CT dated 11/27/2023. FINDINGS: The [...] documented as of this encounter Care Teams Rivet Thrower Relationship Specialty Start Date End Date Elsewhere, Pcp PCP - General Internal Medicine 09/09/23 documented as of this encounter
--- OUTSIDE RECORDS SUMMARY | 2025-02-06 12:48 | XMS_ITS | Encounter Summary ---
Author Organization [facility] Address [address] [place] [address] Care Team Providers Care Fibrous Wallboard Inspector Name Role Phone Elsewhere, Pcp Primary Care Provider Unavailabl e Encounter Details Date Type Department Care Team (Latest Contact Info) Description 01/11/2025 Results Follow-Up Department of Oncology in [address] [place] [phone] Jesica Wasserman M.B., B.Ch. [address] [place] [address] Mismatch Repair (MMR) Protein Immunohistochemistry [...] Recorded In the past 12 months has [employer] electric, gas, oil, or water company threatened [...] living situation today? I have a [facility] place to live 12/23/2024 Education Answer Date Recorded What is the highest level of school you have completed or the highest degree you have received? Master's degree (e.g., MA, MS, Katelyn, MEd, ASSOCIATE PRINCIPAL, KELLEE) 01/05/2025 Sex and Gender Information Value Date Recorded Sex Assigned at Male 09/10/2023 7:48 AM MARINE SAFETY OFFICER Legal Sex Male 10:11 PM MARINE SAFETY OFFICER Gender Identity Male 09/10/2023 7:48 AM MARINE SAFETY OFFICER Sexual Orientation Straight 09/10/2023 7: 48 AM MARINE SAFETY OFFICER documented as of this encounter Plan of Treatment Upcoming Encounters Date Type Department Care Team (Latest Contact Info) Description 02/08/2025 2:15 PM CDT Clinical Communication Virtual Review in [place], [place] 200 [place] [phone] 02/09/2025 9:30 AM CDT Telemedicine Department of Oncology in [address] [address] Jesica Wasserman M.B., B.Ch. [address] [place] [phone] Cecily Nash L.I.CJustynSJustynW. [address] [place] [phone] 02/10/2025 12:00 PM CDT Lab Department of Infusion Therapy in [address] [phone] Skip Amaya M.D., Ph.D. [address] [place] [phone] 02/10/2025 2:30 PM CDT Office Visit Department of Oncology in [place], [place] [address] [place] [phone] Rosenda Garza MPAS, P.A.-C. [address] [place] [phone] 02/11/2025 8:00 AM CDT Infusion Department of Oncology in [place], [place] [address] [place] [phone] Skip Amaya M.D., Ph.D. [address] [place] [phone] 02/23/2025 2:15 PM CDT Clinical Communication Virtual Review in [place], [place] [address] [place] [phone] 02/25/2025 8:30 AM CDT Lab Department of Oncology in [address] [address] Skip Amaya M.D., Ph.D. [address] [place] [phone] 02/25/2025 10:40 AM CDT Office Visit Department of Oncology in [place], [place] [address] [place] [phone] Sandy Judge APRN, C.N.P., M.S. [address] [place] [phone] 02/25/2025 11:30 AM CDT Infusion Department of Oncology in [place], [place] [address] [place] [phone] Skip Amaya M.D., Ph.D. [address] [place] [phone] 03/04/2025 6:00 AM CDT Lab Department of Infusion Therapy in [place], [place] [address] [place] [phone] Skip Amaya M.D., Ph.D. [address] [place] [phone] 03/04/2025 8:10 AM CDT Office Visit Department of Oncology in [address] [address] Jie Shook P.A.-C. [address] [place] [phone] 03/04/2025 9:30 AM CDT Infusion Department of Oncology in [address] [address] Skip Amaya M.D., Ph.D. [address] [place] [phone] 03/10/2025 2:15 PM CDT Clinical Communication Virtual Review in [place], [place] 200 [place] [address] 03/11/2025 6:00 AM CDT Lab Department of Laboratory Medicine and Pathology, [facility], in [address] [address] Skip Amaya M.D., Ph.D. [address] [place] [phone] 03/11/2025 7:20 AM CDT Office Visit Department of Oncology in [address] [address] Bipin Leal P.A.-C., M.S. [address] [place] [phone] 03/11/2025 8:00 AM CDT Infusion Department of Oncology in [place], [place] [address] [place] [phone] Skip Amaya M.D., Ph.D. [address] [place] [phone] 03/24/2025 7:30 AM CDT Appointment Department of Radiology, [facility], in [place], [place] [address] [place] [phone] Skip Amaya M.D., Ph.D. [address] [place] [phone] 03/24/2025 11:20 AM CDT Lab Department of Infusion Therapy in [place], [place] [address] [place] [phone] Skip Amaya M.D., Ph.D. [address] [place] [phone] 03/24/2025 1:30 PM CDT Office Visit Department of Oncology in [place], [place] [address] [place] [phone] Skip Amaya M.D., Ph.D. [address] [place] [phone] 03/25/2025 7:00 AM CDT Infusion Department of Oncology in [place], [place] [address] [place] [phone] Skip Amaya M.D., Ph.D. [address] [place] [phone] 03/29/2025 2:30 PM CDT Clinical Communication Virtual Review in [place], [place] 200 [place] [address] 04/01/2025 6:00 AM CDT Lab Department of Infusion Therapy in [place], [place] [address] [place] [phone] Skip Amaya M.D., Ph.D. [address] [place] [phone] 04/01/2025 8:20 AM CDT Office Visit Department of Oncology in [address] [address] Precious Hill M.D., Ph.D. [address] [place] [phone] 04/01/2025 9:00 AM CDT Infusion Department of Oncology in [address] [address] Skip Amaya M.D., Ph.D. [address] [place] [phone] 04/07/2025 11:00 AM CDT Lab Department of Infusion Therapy in [address] [address] Skip Amaya M.D., Ph.D. [address] [place] [phone] 04/07/2025 1:20 PM CDT Office Visit Department of Oncology in [address] [phone] Sandy Judge APRN, C.N.P., M.S. [address] [place] [phone] 04/08/2025 7:00 AM CDT Infusion Department of Oncology in [address] [address] Skip Amaya M.D., Ph.D. [address] [place] [phone] 04/21/2025 7:15 AM CDT Clinical Communication Virtual Review in [place], [place] 200 [place] [address] 04/22/2025 7:20 AM CDT Lab Department of Infusion Therapy in [place], [place] [address] [place] [phone] Skip Amaya M.D., Ph.D. [address] [place] [phone] 04/22/2025 9:20 AM CDT Office Visit Department of Oncology in [place], [place] [address] [place] [phone] Sandy Judge APRN, C.N.P., M.S. [address] [place] [phone] 04/22/2025 10:30 AM CDT Infusion Department of Oncology in [place], [place] [address] [place] [phone] Skip Amaya M.D., Ph.D. [address] [place] [phone] 04/29/2025 11:15 AM CDT Lab Department of Oncology in [place], [place] [address] [place] [phone] Skip Amaya M.D., Ph.D. [address] [place] [phone] 04/29/2025 1:20 PM CDT Office Visit Department of Oncology in [place], [place] [address] [place] [phone] Sandy Judge APRN, C.N.P., M.S. [address] [place] [phone] 04/29/2025 2:00 PM CDT Infusion Department of Oncology in [place], [place] [address] [place] [address] Skip Amaya M.D., Ph.D. [address] [place] [address] documented as of this encounter Goals Goal [...] documented as of this encounter Care Teams Fibrous Wallboard Inspector Relationship Specialty Start Date End Date Elsewhere, Pcp PCP - General Internal Medicine 09/09/23 documented as of this encounter
--- OUTSIDE RECORDS SUMMARY | 2025-02-06 12:48 | XMS_ITS | Encounter Summary ---
Author Organization [facility] Address [address] [place] [address] Care Team Providers Care Baker Second Name Role Phone Elsewhere, Pcp Primary Care Provider Unavailabl e Reason for Referral * Behavioral Health (Routine) - Closed Specialty Diagnoses / Procedures Referred By Meeta carlisle Referred To Contact Psychiatry / Psychiatry and Psychology Diagnoses Malignant Neoplasm Of Pancreas Tail (HCC) Depression Major One Episode Moderate (HCC) Juliette Martinez M.S.W., L.I.C.S.W. [address] [place] [address] Phone: tel: [facility] Region Referral ID Status Reason Start Date Expiration Date Visits Re quested Visits Authorized [id number] Closed 01/10/2025 07/12/2026 1 1 Scheduling Instructions Offer patient with RAUL Willard or Juliette CARTER virtually, first available for patient. Encounter Details Date Type Department Care Team (Late st Contact Info) Description 01/10/2025 Orders Only Department of Oncology in [place], [place] [address] [place] [phone] Juliette Martinez M.S.W., L.I.C.S.W. [address] [place] [address] Malignant Neoplasm Of Pancreas Tail (HCC) (Primary [...] In the past 12 months has e [employer], gas, oil, or water [employer] threatened to shut off services in your [...] your living situation today? I have a [facility] place to live 12/23/2024 Education Answer Date Recorded What is the highest level of school you have completed or the highest degree you have received? Master's degree (e.g., MA, MS, Katelyn, MEd, HOG CUTTER, KELLEE) 01/05/2025 Sex and Gender Information Value Date Recorded Sex Assigned at Male 09/10/2023 7:48 AM RACK LOADER Legal Sex Male 10:11 PM RACK LOADER Gender Identity Male 09/10/2023 7:48 AM RACK LOADER Sexual Orientation Straight 09/10/2023 7: 48 AM RACK LOADER documented as of this encounter Plan of Treatment Upcoming Encounters Date Type Department Care Team (Latest Contact Info) Description 02/08/2025 2:15 PM CDT Clinical Communication Virtual Review in [place], [place] [address] [place] [address] 02/09/2025 9:30 AM CDT Telemedicine Department of Oncology in [place] [address] [place] [address] Jesica Wasserman M.B., B.. [address] [place] [phone] Cecily Nash L.I.C.S.W. [address] [place] [phone] 02/10/2025 12:00 PM CDT Lab Department of Infusion Therapy in [place], [place] [address] [place] [phone] Skip Amaya M.D., Ph.D. [address] [place] [phone] 02/10/2025 2:30 PM CDT Office Visit Department of Oncology in [place], [place] [address] [place] [phone] Rosenda Garza MPAS, P.A.-C. [address] [place] [phone] 02/11/2025 8:00 AM CDT Infusion Department of Oncology in [place], [place] [address] [place] [phone] Skip Amaya M.D., Ph.D. [address] [place] [phone] 02/23/2025 2:15 PM CDT Clinical Communication Virtual Review in [place], [place] [address] [place] [address] 02/25/2025 8:30 AM CDT Lab Department of Oncology in [place], [place] [address] [place] [phone] Skip Amaya M.D., Ph.D. [address] [place] [phone] 02/25/2025 10:40 AM CDT Office Visit Department of Oncology in [place], [place] [address] [place] [phone] Snady Judge, KASH, C.N.P., M.S. [address] [place] [phone] 02/25/2025 11:30 AM CDT Infusion Department of Oncology in [place], [place] [address] [place] [phone] Skip Amaya M.D., Ph.D. [address] [place] [phone] 03/04/2025 6:00 AM CDT Lab Department of Infusion Therapy in [place], [place] [address] [place] [phone] Skip Amaya M.D., Ph.D. [address] [place] [phone] 03/04/2025 8:10 AM CDT Office Visit Department of Oncology in [place], [place] [address] [place] [phone] Jie Shook P.A.-C. [address] [place] [phone] 03/04/2025 9:30 AM CDT Infusion Department of Oncology in [address] [address] Skip Amaya M.D., Ph.D. [address] [place] [phone] 03/10/2025 2:15 PM CDT Clinical Communication Virtual Review in [place], [place] [address] [place] [address] 03/11/2025 6:00 AM CDT Lab Department of Laboratory Medicine and Pathology, [facility] in [place], [place] [address] [place] [phone] Skip Amaya M.D., Ph.D. [address] [place] [phone] 03/11/2025 7:20 AM CDT Office Visit Department of Oncology in [place], [place] [address] [place] [phone] Bipin Leal P.A.-C., M.S. [address] [place] [phone] 03/11/2025 8:00 AM CDT Infusion Department of Oncology in [address] [phone] Skip Amaya M.D., Ph.D. [address] [place] [phone] 03/24/2025 7:30 AM CDT Appointment Department of Radiology, [facility], in [place], [place] [address] [place] [phone] Skip Amaya M.D., Ph.D. [address] [place] [phone] 03/24/2025 11:20 AM CDT Lab Department of Infusion Therapy in [place], [place] [address] [place] [phone] Skip Amaya M.D., Ph.D. [address] [place] [phone] 03/24/2025 1:30 PM CDT Office Visit Department of Oncology in [place], [place] [address] [place] [phone] Skip Amaya M.D., Ph.D. [address] [place] [phone] 03/25/2025 7:00 AM CDT Infusion Department of Oncology in [place], [place] [address] [place] [phone] Skip Amaya M.D., Ph.D. [address] [place] [phone] 03/29/2025 2:30 PM CDT Clinical Communication Virtual Review in [address] [address] 04/01/2025 6:00 AM CDT Lab Department of Infusion Therapy in [place], [place] [address] [place] [phone] Skip Amaya M.D., Ph.D. [address] [place] [phone] 04/01/2025 8:20 AM CDT Office Visit Department of Oncology in [address] [phone] Precious Hill M.D., Ph.D. [address] [place] [phone] 04/01/2025 9:00 AM CDT Infusion Department of Oncology in [address] [address] Skip Amaya M.D., Ph.D. [address] [place] [phone] 04/07/2025 11:00 AM CDT Lab Department of Infusion Therapy in [place], [place] [address] [place] [phone] Skip Amaya M.D., Ph.D. [address] [place] [phone] 04/07/2025 1:20 PM CDT Office Visit Department of Oncology in [place], [place] [address] [place] [phone] Sandy Judge APRN, C.N.P., M.S. [address] [place] [phone] 04/08/2025 7:00 AM CDT Infusion Department of Oncology in [place], [place] [address] [place] [phone] Skip Amaya M.D., Ph.D. [address] [place] [phone] 04/21/2025 7:15 AM CDT Clinical Communication Virtual Review in [place], [place] [address] [place] [address] 04/22/2025 7:20 AM CDT Lab Department of Infusion Therapy in [address] [address] Skip Amaya M.D., Ph.D. [address] [place] [phone] 04/22/2025 9:20 AM CDT Office Visit Department of Oncology in [place], [place] [address] [place] [phone] Sandy Judge APRN, C.N.P., M.S. [address] [place] [phone] 04/22/2025 10:30 AM CDT Infusion Department of Oncology in [place], [place] [address] [place] [phone] Skip Amaya M.D., Ph.D. [address] [place] [phone] 04/29/2025 11:15 AM CDT Lab Department of Oncology in [place], [place] [address] [place] [phone] Skip Amaya M.D., Ph.D. [address] [place] [phone] 04/29/2025 1:20 PM CDT Office Visit Department of Oncology in [place], [place] [address] [place] [phone] Sandy Judge APRN, C.N.P., M.S. [address] [place] [phone] 04/29/2025 2:00 PM CDT Infusion Department of Oncology in [place], [place] [address] [place] [phone] Skip Amaya M.D., Ph.D. [address] [place] [phone] Scheduled Referrals Name Type Priority Associated Diagnoses [...] documented as of this encounter Care Teams Baker Second Relationship Specialty Start Date End Date Elsewhere, Pcp PCP - General Internal Medicine 09/09/23 documented as of this encounter
--- OUTSIDE RECORDS SUMMARY | 2025-02-06 12:48 | XMS_ITS | Encounter Summary ---
Author Organization [facility] Address [address] [place] [address] Care Team Providers Care Perforator Operator Oil Well Name Role Phone Elsewhere, Pcp Primary Care Provider Unavailabl e Encounter Details Date Type Department Care Team (Late st Contact Info) Description 01/11/2025 Results Follow-Up Department of Medical Genetics in [place], [place] [address] [place] [address] Criselda Hagen, Unlicensed [facility]. [employer] Sent Out Lab Social History Tobacco Use Types Packs/Day Years Used Date Smoking Tobacco: Never Passive Smoke Exposure: Past Smokeless Tobacco: Never Passive Exposure Comments:Ch ildhood exposure. Alcohol Use Standard Drinks/Week Comments Not Currently 1 (1 standard drink = 0.6 oz pur e alcohol) 0-1 drink per week [facility] Utilities Answer Date Recorded In the past 12 months has [employer], gas, oil, or water [employer] threatened to shut off services in your [...] your living situation today? I have a [facility] place to live 12/23/2024 Education Answer Date Recorded What is the highest level of school you have completed or the highest degree you have received? Master's degree (e.g., MA, MS, Katelyn, MEd, MACADAM RAKER, KELLEE) 01/05/2025 Sex and Gender Information Value Date Recorded Sex Assigned at Male 09/10/2023 7:48 AM DIRECTOR OF ANALYTICAL DEVELOPMENT Legal Sex Male 10:11 PM DIRECTOR OF ANALYTICAL DEVELOPMENT Gender Identity Male 09/10/2023 7:48 AM DIRECTOR OF ANALYTICAL DEVELOPMENT Sexual Orientation Straight 09/10/2023 7: 48 AM DIRECTOR OF ANALYTICAL DEVELOPMENT documented as of this encounter Plan of Treatment Upcoming Encounters Date Type Department Care Team (Latest Contact Info) Description 02/08/2025 2:15 PM CDT Clinical Communication Virtual Review in [place], [place] [address] [place] [phone] 02/09/2025 9:30 AM CDT Telemedicine Department of Oncology in [address] [phone] Jesica Wasserman M.B., B.Ch. [address] [place] [phone] Cecily Nash L.I.C.S.W. [address] [place] [phone] 02/10/2025 12:00 PM CDT Lab Department of Infusion Therapy in [place], [place] [address] [place] [phone] Skip Amaya M.D., Ph.D. [address] [place] [phone] 02/10/2025 2:30 PM CDT Office Visit Department of Oncology in [place], [place] [address] [place] [phone] Rosenda Garza MPAS, P.A.-C. [address] [place] [phone] 02/11/2025 8:00 AM CDT Infusion Department of Oncology in [place], [place] [address] [place] [phone] Skip Amaya M.D., Ph.D. [address] [place] [phone] 02/23/2025 2:15 PM CDT Clinical Communication Virtual Review in [address] [address] 02/25/2025 8:30 AM CDT Lab Department of Oncology in [place], [place] [address] [place] [phone] Skip Amaya M.D., Ph.D. [address] [place] [phone] 02/25/2025 10:40 AM CDT Office Visit Department of Oncology in [address] [phone] Sandy Judge APRN, C.N.P., M.S. [address] [place] [phone] 02/25/2025 11:30 AM CDT Infusion Department of Oncology in [address] [address] Skip Amaya M.D., Ph.D. [address] [place] [phone] 03/04/2025 6:00 AM CDT Lab Department of Infusion Therapy in [place], [place] [address] [place] [phone] Skip Amaya M.D., Ph.D. [address] [place] [phone] 03/04/2025 8:10 AM CDT Office Visit Department of Oncology in [place], [place] [address] [place] [phone] Jie Shook P.A.-C. [address] [place] [phone] 03/04/2025 9:30 AM CDT Infusion Department of Oncology in [place], [place] [address] [place] [phone] Skip Amaya M.D., Ph.D. [address] [place] [phone] 03/10/2025 2:15 PM CDT Clinical Communication Virtual Review in [place], [place] [address] [place] [address] 03/11/2025 6:00 AM CDT Lab Department of Laboratory Medicine and Pathology, [facility] in [place], [place] [address] [place] [phone] Skip Amaya M.D., Ph.D. [address] [place] [phone] 03/11/2025 7:20 AM CDT Office Visit Department of Oncology in [place], [place] [address] [place] [phone] Bipin Leal P.A.-C., M.S. [address] [place] [phone] 03/11/2025 8:00 AM CDT Infusion Department of Oncology in [place], [place] [address] [place] [phone] Skip Amaya M.D., Ph.D. [address] [place] [phone] 03/24/2025 7:30 AM CDT Appointment Department of Radiology, [facility], in [place], [place] [address] [place] [phone] Skip Amaya M.D., Ph.D. [address] [place] [phone] 03/24/2025 11:20 AM CDT Lab Department of Infusion Therapy in [place], [place] [address] [place] [phone] Skip Amaya M.D., Ph.D. [address] [place] [phone] 03/24/2025 1:30 PM CDT Office Visit Department of Oncology in [place], [place] [address] [place] [phone] Skip Amaya M.D., Ph.D. [address] [place] [phone] 03/25/2025 7:00 AM CDT Infusion Department of Oncology in [place], [place] [address] [place] [phone] Skip Amaya M.D., Ph.D. [address] [place] [phone] 03/29/2025 2:30 PM CDT Clinical Communication Virtual Review in [place], [place] [address] [place] [address] 04/01/2025 6:00 AM CDT Lab Department of Infusion Therapy in [place], [place] [address] [place] [phone] Skip Amaya M.D., Ph.D. [address] [place] [phone] 04/01/2025 8:20 AM CDT Office Visit Department of Oncology in [place], [place] [address] [place] [phone] Precious Hill M.D., Ph.D. [address] [place] [phone] 04/01/2025 9:00 AM CDT Infusion Department of Oncology in [place], [place] [address] [place] [phone] Skip Amaya M.D., Ph.D. [address] [place] [phone] 04/07/2025 11:00 AM CDT Lab Department of Infusion Therapy in [place], [place] [address] [place] [phone] Skip Amaya M.D., Ph.D. [address] [place] [phone] 04/07/2025 1:20 PM CDT Office Visit Department of Oncology in [address] [phone] Sandy Judge, KASH, C.N.P., M.S. [address] [place] [phone] 04/08/2025 7:00 AM CDT Infusion Department of Oncology in [place], [place] [address] [place] [phone] Skip Amaya M.D., Ph.D. [address] [place] [phone] 04/21/2025 7:15 AM CDT Clinical Communication Virtual Review in [place], [place] [address] [place] [address] 04/22/2025 7:20 AM CDT Lab Department of Infusion Therapy in [place], [place] [address] [place] [phone] Skip Amaya M.D., Ph.D. [address] [place] [phone] 04/22/2025 9:20 AM CDT Office Visit Department of Oncology in [place], [place] [address] [place] [phone] Sandy Judge APRN, C.N.P., M.S. [address] [place] [phone] 04/22/2025 10:30 AM CDT Infusion Department of Oncology in [place], [place] [address] [place] [phone] Skip Amaya M.D., Ph.D. [address] [place] [phone] 04/29/2025 11:15 AM CDT Lab Department of Oncology in [address] [address] Skip Amaya M.D., Ph.D. [address] [place] [phone] 04/29/2025 1:20 PM CDT Office Visit Department of Oncology in [address] [phone] Sandy Judge APRN, C.N.P., M.S. [address] [place] [phone] 04/29/2025 2:00 PM CDT Infusion Department of Oncology in [place], [place] [address] [place] [address] Skip Amaya M.D., Ph.D. [address] [place] [address] documented as of this encounter Goals Goal [...] documented as of this encounter Care Teams Perforator Operator Oil Well Relationship Specialty Start Date End Date Elsewhere, Pcp PCP - General Internal Medicine 09/09/23 documented as of this encounter
[2025-02-06 12:54] VITALS: BP 123/70; PULSE 89; RESP 18; TEMP 37.8; O2SAT 95; BMI 28.1
--- NOTE | 2025-02-06 13:05 | ED.GENADULT ---
HPI - General Adult General Chief complaint: Fever Stated complaint: Fever/Vomiting Time Seen by Provider: 02/06/25 12:46 History of Present Illness HPI narrative: Patient here today with fever (check at home before coming in was 101.5 F), diarrhea and nausea since yesterday. Patient received an experimental chemo dose on Friday at [facility]. Called his oncologist before coming in with fever concern and notified to go to an ER for evaluation. Patient states he thinks he just needs some fluids. He does have a port. Tylenol at 11 am and Compazine also taken this morning. 69-year-old man presenting to the emergency department with concern of fever in the setting of chemotherapy dosing. History of pancreatic cancer. Has been nauseated but not actually vomiting. Has been having recurrent diarrhea. No hematochezia noted. Seen last week with similar presentation. Did have elevated lactate at that time. Was hydrated. Blood cultures upon review of record have been negative. This is now 48 hours into next round of chemo. Is not having abdominal pain today however. Temperature measured over 101? at home. Noticed have a rash concentrated over the right face but extending over most of his head with some eruptions along arms few spots I think probably in the lower legs as well. Some spots on his chest that look more to be follicular. Apparently this rash has been present over the last 24 hours or so. Related Data Home Medications ?Medication ?Instructions ?Recorded ?Confirmed aspirin 81 mg tablet,delayed 81 mg PO DAILY 01/11/22 01/30/25 release bupropion HCl 150 mg 24 hr tablet, 150 mg PO DAILY 01/11/22 01/30/25 extended release bupropion HCl 300 mg 24 hr tablet, 300 mg PO DAILY 01/11/22 01/30/25 extended release escitalopram oxalate 20 mg tablet 20 mg PO DAILY 01/11/22 01/30/25 lorazepam 0.5 mg tablet 0.5 mg PO Q6H PRN 01/11/22 01/30/25 nitroglycerin 0.4 mg sublingual 0.4 mg sublingual PRN 01/11/22 tablet atorvastatin 80 mg tablet 80 mg PO DAILY 08/05/23 01/30/25 sildenafil 100 mg tablet 100 mg PO DAILY PRN 12/20/24 01/30/25 ondansetron HCl 8 mg tablet 8 mg PO 3XD 01/30/25 01/30/25 prochlorperazine maleate 10 mg 10 mg PO Q6H PRN 01/30/25 01/30/25 tablet Allergies Allergy/AdvReac Type Severity Reaction Status Date / Time amoxicillin (From Augmentin) Allergy Intermediate Nausea Verified 01/30/25 19:13 clavulanic acid (From Allergy Intermediate Nausea Verified 01/30/25 19:13 Augmentin) Review of Systems Status of ROS: Reports: 6 or more systems reviewed and unremarkable except as noted in History and below PFSH PFS Medical History Depression, major ?F32.9 - Major depressive disorder, single episode, unspecified (ICD-10) Ventricular tachycardia ?I47.20 - Ventricular tachycardia, unspecified (ICD-10) YARA on CPAP ?G47.33 - Obstructive sleep apnea (adult) (pediatric) (ICD-10) Coronary artery disease ?I25.10 - Atherosclerotic heart disease of [place] coronary artery without angina pectoris (ICD-10) Chronic kidney disease (CKD), stage III (moderate) ?N18.30 - Chronic kidney disease, stage 3 unspecified (ICD-10) Hyperlipidemia ?E78.5 - Hyperlipidemia, unspecified (ICD-10) Hypertension ?I10 - Essential (primary) hypertension (ICD-10) Surgical History Hx of vasectomy ?Z98.52 - Vasectomy status (ICD-10) History of tonsillectomy and adenoidectomy ?Z90.89 - Acquired absence of other organs (ICD-10) Hx of shoulder replacement ?Z96.619 - Presence of unspecified artificial shoulder joint (ICD-10) Stented coronary artery ?Z95.5 - Presence of coronary angioplasty implant and graft (ICD-10) Social History Smoking Status: Never smoker Do you use any of these nicotine containing products: None Second hand tobacco smoke exposure: No How often do you have a drink containing alcohol: monthly or less Alcohol type: beer How many standard drinks containing alcohol do you have on a typical day: 1 or 2 How often do you have six or more drinks on one occasion: Never AUDIT-C Alcohol total score: 1 Non-prescribed substance use: denies use Caffeine: Yes (castillo) Exam Narrative: Exam Narrative: Curled up than lying on his left side. Does appear acute uncomfortable warrant does does not feel very good. Breathing easily. Lungs are clear. Heart in regular rate and rhythm. Skin is generally warm. Macular papular erythematous rash not exactly confluent but more concentrated over the right cheek and right face then head. Some of the spots also scattered on the forearms and a few possibly on the lower extremities. Oropharynx is unremarkable. Looks moist. Abdomen is soft nontender with present bowel sounds. Const: Vital Signs, click to edit/add: Vital Signs - 24 hr 02/06/25 12:54 Temperature 100.0 F H Pulse Rate [Pulse Oximeter] 89 Respiratory Rate 18 Blood Pressure [Ri ght Upper Arm] 123/70 Pulse Oximetry 95 Oxygen Delivery Me thod Room Air Documenting provider has reviewed patient's vital signs: yes Course Vital Signs Vital signs: Initial Vital Signs Temperature 100.0 F H 02/06/25 12:54 Temperature Source Oral 02/06/25 12:54 Pulse Rate 89 02/06/25 12:54 Respiratory Rate 18 02/06/25 12:54 Blood Pressure 123/70 02/06/25 12:54 Blood Pressure Mean 87 02/06/25 12:54 Blood Pressure Position Sitting 02/06/25 12:54 Pulse Oximetry 95 02/06/25 12:54 Oxygen Delivery Method Room Air 02/06/25 12:54 Vital Signs Temperature 100.0 F H 02/06/25 12:54 Pulse Rate 89 02/06/25 12:54 Respiratory Rate 18 02/06/25 12:54 Blood Pressure 123/70 02/06/25 12:54 Pulse Oximetry 95 02/06/25 12:54 Oxygen Delivery Method Room Air 02/06/25 12:54 Temperature 100.0 F H 02/06/25 12:54 Pulse Rate 89 02/06/25 12:54 Respiratory Rate 18 02/06/25 12:54 Blood Pressure 123/70 02/06/25 12:54 Pulse Oximetry 95 02/06/25 12:54 Oxygen Delivery Method Room Air 02/06/25 12:54 Medications Administered Medications: Discontinued Medications Generic Name Dose Route Start Last Admin Trade Name Freq PRN Reason Stop Dose Admin Heparin Sodium (Porcine) 500 unit 02/06/25 16:38 02/06/25 16:25 Heparin 500 Unit/5 Ml Syringe IVF 02/06/25 16:39 500 unit ONCE ONE Administration Sodium Chloride 1,000 mls @ 1,000 mls/hr 02/06/25 13:26 02/06/25 15:05 0.9 % Sodium Chloride 1000 Ml IV 02/06/25 14:25 Infused .Q1H ONE Infusion Lactated Ringer's 1,000 mls @ 1,000 mls/hr 02/06/25 14:33 02/06/25 16:10 Lactated Ringers 1000 Ml IV 02/06/25 15:32 Infused .Q1H ONE Infusion Ondansetron HCl 4 mg 02/06/25 13:47 02/06/25 14:02 Ondansetron 2 Mg/Ml Inj IVP 02/06/25 13:48 4 mg ONCE ONE Administration Medical Decision Making MDM Narrative Medical decision making narrative: Surely is dehydrated. Will initiate fluid resuscitation. Blood cultures as well. 48 hours is expected time to react from this apparent chemotherapy. Will check to be sure that not neutropenic fever. Look for other source of infection. Labs are generally reassuring. Although CRP was rather elevated at 6.1. Chest x-ray by my independent review looks normal. INDICATION: Fever chemo TECHNIQUE: Single-view chest. FINDINGS: The lungs are clear. The heart, mediastinum and pulmonary vessels are of normal size. There is no evidence of pleural disease. Right Port-A-Cath at the cavoatrial junction. Right humeral prosthesis partially seen. IMPRESSION: Negative chest. Dictated by Cammy Frey MD @ 02/06/2025 2:53:32 PM Has improved with 2 L of fluid resuscitation. Feels much better he says. I did discuss this case with oncology. Suspicion is that med related effect here. Cultures from last visit so far negative. We have drawn blood cultures here though as well. No antibiotics given at this time. I do not know for sure but I wonder if your fever and rash are related primarily to your chemo. Blood cultures however are pending looking for potential infection. Continue to focus on hydration. Return for worsening, persistent symptoms like intractable vomiting or diarrhea, increasing abdominal pain, lightheadedness. You might try hydrocortisone cream if your rash seems irritating, itchy. Please contact your oncology clinic/ team tomorrow. I would anticipate them reaching out to you as we Medical Records Medical records reviewed: Yes I reviewed the patient's medical records Lab Data Lab results reviewed: Yes I reviewed the patient's lab results Labs: Lab Results 02/06/25 02/06/25 02/06/25 Range/Units 13:07 13:26 13:45 WBC 10.66 (4.50-11.00) K/uL RBC 3.60 L (4.30-5.90) m/uL Hgb 10.7 L (13.5-17.5) gm/dL Hct 33.2 L (37.0-53.0) % MCV 92 (80-100) fL MCH 30 (26-34) pg MCHC 32 (32-36) gm/dL RDW Coeff of Rosie 13.0 (11.5-15.5) % Plt Count 123 L (140-440) K/uL Neut % (Auto) 85.2 H (42.0-72.0) % Lymph % (Auto) 11.3 L (20-44) % Nye % (Auto) 0.6 (0.0-11.0) % Eos % (Auto) 2.6 (0.0-7.0) % Baso % (Auto) 0.1 (0.0-3.0) % Neut # (Auto) 9.10 H (1.7-7.0) K/uL Lymph # (Auto) 1.20 (0.90-2.90) K/uL Nye # (Auto) 0.10 (0.00-0.90) K/UL Eos # (Auto) 0.28 (0.00-0.50) K/uL Baso # (Auto) 0.01 (0.00-0.30) K/uL Abs Immat Gran (auto) 0.02 (0.00-0.30) K/uL Imm/Tot Granulo (auto) 0.2 % Diff Slide Review Acceptable Review (Acceptable) Sodium 134 L (135-149) mmol/L Potassium 3.9 (3.6-5.1) mmol/L Chloride 102 (96-114) mmol/L Carbon Dioxide 26 (20-32) mmol/L Anion Gap 6 L (7-15) mEq/L BUN 12 (7-30) mg/dL Creatinine 1.0 (0.5-1.5) mg/dL Estimated Creat Clear 75.44 Estimated GFR 81 ml/min Glucose 130 H (60-115) mg/dL Calcium 8.6 (8.4-10.6) mg/dL C-Reactive Protein 6.1 H (0.5-1.0) mg/dL Urine Color Ebonie A (Yellow) Urine Appearance Clear (Clear) Urine pH 7.0 (5.0-8.5) Ur Specific Freeman 1.015 (1.000-1.030) Urine Protein 1+ A (Negative) Urine Glucose (UA) Negative (Negative) Urine Ketones Negative (Negative) Urine Blood Trace-intact A (Negative) Urine Nitrite Negative (Negative) Urine Bilirubin Negative (Negative) Urine Urobilinogen 0.2 (0.2-1.0) Ur Leukocyte Esterase Negative (Negative) Urine RBC 0-2 (0-2) Urine WBC 0-2 (0-5) Ur Squamous Epith Cells Few (None-Few) Urine Bacteria Few A (None) Urine Mucus Few A (None) SARS-CoV-2 (PCR) Negative SARS-CoV-2 (Negative) Influenza Type A (PCR) Negative PCR FLU A (Negative) Influenza Type B (PCR) Negative PCR FLU B (Negative) RSV (PCR) Negative PCR RSV (Negative) Discharge Plan Discharge Clinical Impression: Fever, Drug rash, Dehydration Patient Disposition: Home w/ Parent or Adult Condition: Improved Instructions: Dehydration (DC), Fever in Adults (ED) Additional Instructions: Undo block Prescriptions: No Action atorvastatin 80 mg tablet 80 mg PO DAILY aspirin 81 mg tablet,delayed release (DR/EC) 81 mg PO DAILY lorazepam 0.5 mg tablet 0.5 mg PO Q6H PRN nitroglycerin 0.4 mg tablet, sublingual 0.4 mg sublingual PRN Patient Comments: ONE TABLET UNDER TONGUE NEEDED FOR CHEST PAIN EVERY 5 MINUTES escitalopram oxalate 20 mg tablet 20 mg PO DAILY bupropion HCl 300 mg tablet extended release 24 hr 300 mg PO DAILY bupropion HCl 150 mg tablet extended release 24 hr 150 mg PO DAILY sildenafil 100 mg tablet 100 mg PO DAILY PRN ondansetron HCl 8 mg tablet 8 mg PO 3XD prochlorperazine maleate 10 mg tablet 10 mg PO Q6H PRN Follow Up/Referrals: Lexie Dale PA-C [Primary Care Provider, Family Practice] Stand Alone Forms: eBuddy Info Instructions
--- OUTSIDE RECORDS SUMMARY | 2025-02-06 13:23 | XMS_ITS | Encounter Summary ---
Author Organization [facility] Address [address] [place] [phone] Care Team Providers Care Manager Wastewater Name Role Phone Elsewhere, Pcp Primary Care Provider Unavailabl e Encounter Details Date Type Department Care Team (Late st Contact Info) Description 02/06/2025 Clinical Communication Department of Oncology in [place], [place] [address] [place] [phone] Yoli Hernández M.D. [address] [place] [phone] Social History Tobacco Use Types Packs/Day Years Used Date Smoking Tobacco: Never Passive Smoke Exposure: Past Smokeless Tobacco: Never Passive Exposure Comments:Ch ildhood exposure. Alcohol Use Standard Drinks/Week Comments Not Currently 1 (1 standard drink = 0.6 oz pur e alcohol) 0-1 drink per week [facility] Utilities Answer Date Recorded In the past 12 months has e electric, gas, oil, or water Cater to u threatened to shut off services in your [...] living situation today? I have a [facility] place to live 12/23/2024 Education Answer Date Recorded What is the highest level of school you have completed or the highest degree you have received? Master's degree (e.g., MA, MS, Katelyn, MEd, TROLLEY COLLECTOR, KELLEE) 01/05/2025 Sex and Gender Information Value Date Recorded Sex Assigned at Male 09/10/2023 7:48 AM RECORD RETRIEVAL SPECIALIST Legal Sex Male 10:11 PM RECORD RETRIEVAL SPECIALIST Gender Identity Male 09/10/2023 7:48 AM RECORD RETRIEVAL SPECIALIST Sexual Orientation Straight 09/10/2023 7: 48 AM RECORD RETRIEVAL SPECIALIST documented as of this encounter Miscellaneous Notes * Telephone Encounter - Yoli Hernández M.D. - 02/06/2025 12:56 PM CDT MECHANICAL PRODUCT DESIGN ENGINEER ONCOLOGY NOTE I received a call on the [employer] Inspector Oncology pager from Mr. Mata's . Mr. Mata is a 69 YOM with a history of metastatic pancreatic cancer, on [facility] PR[facility]-1 ( Quemliclustat ([id number]) or Placebo / PACLitaxel PROTEIN BOUND / Gemcitabine ). She states that the patient received his second dose of chemotherapy on Friday and this morning hasbeen having a fever all day and noted the history of fever/ at home treatment from her below: - 4:30am fever to 101.7F, gave Tylenol - 5:30am gave compazine for nausea - 8:45am fever to 100.5F - 11:30am fever 102.1 F - after tylenol, still fevering to 101.5F Given his prolonged fever and nausea, and I think it is best if he goes to the nearest emergency room for evaluation and treatment. Patient's expressed understanding of the recommendation. Yoli Hernández M.D. Hematology/ Oncology Fellow Pager # [phone] documented in this encounter Plan of Treatment Upcoming Encounters Date Type Department Care Team (Latest Contact Info) Description 02/08/2025 2:15 PM CDT Clinical Communication Virtual Review in [place], [place] [address] [place] [phone] 02/09/2025 9:30 AM CDT Telemedicine Department of Oncology in [address] [phone] Jesica Wasserman M.B., B.Ch. [address] [place] [phone] Cecily Nash L.I.C.SJustynWJustyn [address] [place] [phone] 02/10/2025 12:00 PM CDT Lab Department of Infusion Therapy in [address] [phone] Skip Amaya M.D., Ph.D. [address] [place] [phone] 02/10/2025 2:30 PM CDT Office Visit Department of Oncology in [address] [phone] Rosenda Garza MPAS, P.A.-C. [address] [place] [phone] 02/11/2025 8:00 AM CDT Infusion Department of Oncology in [address] [phone] Skip Amaya M.D., Ph.D. [address] [place] [phone] 02/23/2025 2:15 PM CDT Clinical Communication Virtual Review in [place], [place] [address] [place] [address] 02/25/2025 8:30 AM CDT Lab Department of Oncology in [place], [place] [address] [place] [phone] Skip Amaya M.D., Ph.D. [address] [place] [phone] 02/25/2025 10:40 AM CDT Office Visit Department of Oncology in [place], [place] [address] [place] [phone] Sandy Judge APRN, C.N.P., M.S. [address] [place] [phone] 02/25/2025 11:30 AM CDT Infusion Department of Oncology in [address] [phone] Skip Amaya M.D., Ph.D. [address] [place] [phone] 03/04/2025 6:00 AM CDT Lab Department of Infusion Therapy in [address] [phone] Skip Amaya M.D., Ph.D. [address] [place] [phone] 03/04/2025 8:10 AM CDT Office Visit Department of Oncology in [address] [phone] Jie Shook P.A.-C. [address] [place] [phone] 03/04/2025 9:30 AM CDT Infusion Department of Oncology in [place], [place] [address] [place] [phone] Skip Amaya M.D., Ph.D. [address] [place] [phone] 03/10/2025 2:15 PM CDT Clinical Communication Virtual Review in [place], [place] [address] [place] [address] 03/11/2025 6:00 AM CDT Lab Department of Laboratory Medicine and Pathology, [facility] in [place], [place] [address] [place] [phone] Skip Amaya M.D., Ph.D. [address] [place] [phone] 03/11/2025 7:20 AM CDT Office Visit Department of Oncology in [address] [phone] Bipin Leal P.A.-C., M.S. [address] [place] [phone] 03/11/2025 8:00 AM CDT Infusion Department of Oncology in [address] [phone] Skip Amaya M.D., Ph.D. [address] [place] [phone] 03/24/2025 7:30 AM CDT Appointment Department of Radiology, [facility], in [place], [place] [address] [place] [phone] Skip Amaya M.D., Ph.D. [address] [place] [phone] 03/24/2025 11:20 AM CDT Lab Department of Infusion Therapy in [address] [phone] Skip Amaya M.D., Ph.D. [address] [place] [phone] 03/24/2025 1:30 PM CDT Office Visit Department of Oncology in [place], [place] [address] [place] [phone] Skip Amaya M.D., Ph.D. [address] [place] [phone] 03/25/2025 7:00 AM CDT Infusion Department of Oncology in [place], [place] [address] [place] [phone] Skip Amaya M.D., Ph.D. [address] [place] [phone] 03/29/2025 2:30 PM CDT Clinical Communication Virtual Review in [place], [place] [address] [place] [phone] 04/01/2025 6:00 AM CDT Lab Department of Infusion Therapy in [place], [place] [address] [place] [phone] Skip Amaya M.D., Ph.D. [address] [place] [phone] 04/01/2025 8:20 AM CDT Office Visit Department of Oncology in [place], [place] [address] [place] [phone] Precious Hill M.D., Ph.D. [address] [place] [phone] 04/01/2025 9:00 AM CDT Infusion Department of Oncology in [place], [place] [address] [place] [phone] Skip Amaya M.D., Ph.D. [address] [place] [phone] 04/07/2025 11:00 AM CDT Lab Department of Infusion Therapy in [place], [place] [address] [place] [phone] Skip Amaya M.D., Ph.D. [address] [place] [phone] 04/07/2025 1:20 PM CDT Office Visit Department of Oncology in [address] [phone] Sandy Judge APRN, C.N.P., M.S. [address] [place] [phone] 04/08/2025 7:00 AM CDT Infusion Department of Oncology in [place], [place] [address] [place] [phone] Skip Amaya M.D., Ph.D. [address] [place] [phone] 04/21/2025 7:15 AM CDT Clinical Communication Virtual Review in [place], [place] [address] [place] [address] 04/22/2025 7:20 AM CDT Lab Department of Infusion Therapy in [place], [place] [address] [place] [phone] Skip Amaya M.D., Ph.D. [address] [place] [phone] 04/22/2025 9:20 AM CDT Office Visit Department of Oncology in [address] [phone] Sandy Judge APRN, C.N.P., M.S. [address] [place] [phone] 04/22/2025 10:30 AM CDT Infusion Department of Oncology in [place], [place] [address] [place] [phone] Skip Amaya M.D., Ph.D. [address] [place] [phone] 04/29/2025 11:15 AM CDT Lab Department of Oncology in [place], [place] [address] [place] [phone] Skip Amaya M.D., Ph.D. [address] [place] [phone] 04/29/2025 1:20 PM CDT Office Visit Department of Oncology in [place], [place] [address] [place] [phone] Sandy Judge APRN, C.N.P., M.S. [address] [place] [phone] 04/29/2025 2:00 PM CDT Infusion Department of Oncology in [place], [place] [address] [place] [phone] Skip Amaya M.D., Ph.D. [address] [place] [phone] documented as of this encounter Goals Goal [...] as of this encounter Care Teams Manager Wastewater Relationship Specialty Start Date End Date Elsewhere, Pcp PCP - General Internal Medicine 09/09/23 documented as of this encounter
--- NOTE | 2025-02-06 13:26 | CRLHL7_ITS ---
For Patients: As a result of the Century Cures Act, medical imaging exams and procedure reports are released immediately into your electronic medical record. You may view this report before your referring provider. If you have questions, please contact your health care provider. INDICATION: Fever chemo TECHNIQUE: Single-view chest. FINDINGS: The lungs are clear. The heart, mediastinum and pulmonary vessels are of normal size. There is no evidence of pleural disease. Right Port-A-Cath at the cavoatrial junction. Right humeral prosthesis partially seen. IMPRESSION: Negative chest. Dictated by Cammy Frey MD @ 02/06/2025 2:53:32 PM (Electronically Signed)
[2025-02-06 13:59] LABS: Hematocrit 33.2 % (37.0-53.0); Hemoglobin* 10.7 gm/dL (13.5-17.5); Immature Granulocytes Abs Auto 0.02 K/uL (0.00-0.30); Immature Granulocytes Pct Auto 0.2 %; Lymphocytes Absolute Auto 1.20 K/uL (0.90-2.90); Mean Corpuscular HGB Conc 32 gm/dL (32-36); Mean Corpuscular Hemoglobin 30 pg (26-34); Mean Corpuscular Volume 92 fL (80-100); RDW Coefficient of Variation % 13.0 % (11.5-15.5); Red Blood Count 3.60 m/uL (4.30-5.90); White Blood Count* 10.66 K/uL (4.50-11.00)
[2025-02-06] MEDS: ONDANSETRON 2 MG/ML inj 4 MG IVP (14:02)
[2025-02-06 14:16] LABS: Slide Review Reflex Yes
[2025-02-06 14:17] LABS: Appearance Urine Clear (Clear)
[2025-02-06 14:21] LABS: Chloride* 102 mmol/L (96-114); Potassium* 3.9 mmol/L (3.6-5.1); Sodium* 134 mmol/L (135-149)
[2025-02-06 14:24] LABS: Blood Urea Nitrogen* 12 mg/dL (7-30); Creatinine* 1.0 mg/dL (0.5-1.5); Est. Creatinine Clearance* 75.44; Estimated Glomerular Filt Rate 81 ml/min
[2025-02-06 14:25] LABS: Anion Gap 6 mEq/L (7-15); Calcium* 8.6 mg/dL (8.4-10.6); Carbon Dioxide* 26 mmol/L (20-32); Glucose* 130 mg/dL (60-115)
[2025-02-06 14:43] LABS: Slide Review Acceptable Review (Acceptable)
[2025-02-06 14:58] LABS: PCR FLU A Negative PCR FLU A (Negative); PCR FLU B Negative PCR FLU B (Negative); PCR RSV Negative PCR RSV (Negative); SARS PCR* Negative SARS-CoV-2 (Negative)
[2025-02-06] MEDS: LACTATED RINGERS 1000 ML 1,000 ML IV (15:04)
--- NOTE | 2025-02-06 16:04 | RESP.RT ---
Airway assist for cardioversion.
[2025-02-06] MEDS: HEPARIN 500 UNIT/5 ML SYRINGE IVF (16:25)
== END 2025-02-06 16:25 | disposition home or self-care (01) ==
PROVIDERS: Emergency Provider Family Medicine; PCP Physician Assistant Medical
DX: R50.9 Fever, unspecified (principal); R21 Rash and other nonspecific skin eruption; E86.0 Dehydration
CPT/HCPCS: 36415; 71045; 80048; 81001; 85025; 86140; 87040; 87086; 87631; 87800; 96374; 99284; J1642; J2405; J7030; J7120